=== PATIENT | female | born 1970 | race Two or more races ===

== ENCOUNTER 2021-01-11 13:22 | Outpatient (REF) | payer MEDICAID, SELFPAY ==
--- NOTE | ~2021-01-11 | XR_ITS ---
EXAMINATION: XR LUMBOSACRAL SPINE CLINICAL INFORMATION: Back pain with left-sided sciatica. COMPARISON: None TECHNIQUE: Three views of the lumbosacral spine. FINDINGS: Normal vertebral body alignment. The lumbar lordosis is maintained. No acute fracture or subluxation. No loss of vertebral body height. Minimal multilevel loss of intervertebral disc height with tiny anterior endplate osteophytes, most prominent at L2-L3. No lytic or blastic osseous lesion. Multiple surgical clips. XR/XR lumbar spine 2-3V IMPRESSION: Minimal multilevel degenerative disc disease.
--- NOTE | ~2021-01-11 | XR_ITS ---
EXAMINATION: XR KNEE, LEFT CLINICAL INFORMATION: Left knee pain. COMPARISON: None TECHNIQUE: Four views of the left knee. FINDINGS: Mild medial compartment joint space narrowing with small marginal osteophytes. Tiny patellofemoral compartment marginal osteophytes. No osseous erosion. No fracture or dislocation. No abnormal soft tissue calcification. No significant joint effusion. XR/XR knee LT 4V IMPRESSION: Mild medial and minimal patellofemoral compartment osteoarthritis.
== END 2021-01-11 13:23 | disposition home or self-care (01) ==
LOC: HO.XRAY 13:22
PROVIDERS: PCP Student in an Organized Health Care Education/Training Program; Visit Provider Emergency Medicine
DX: M25.662 Stiffness of left knee, not elsewhere classified (principal); M54.42 Lumbago with sciatica, left side
CPT/HCPCS: 72100; 73564

== ENCOUNTER → 2021-08-23 09:00 | Outpatient (BNVA) | payer MEDICAID, SELFPAY | PROVIDERS: PCP Student in an Organized Health Care Education/Training Program; Visit Provider Nurse Practitioner Family | DX: G24.3 Spasmodic torticollis (principal); G43.709 Chronic migraine without aura, not intractable, without status migrainosus; R41.3 Other amnesia | CPT/HCPCS: 99212 ==

== ENCOUNTER → 2021-10-21 09:51 | Outpatient (BNVA) | payer MEDICAID, SELFPAY | PROVIDERS: PCP Student in an Organized Health Care Education/Training Program; Visit Provider Psychiatry & Neurology Neurology | DX: G24.3 Spasmodic torticollis (principal); G43.709 Chronic migraine without aura, not intractable, without status migrainosus | CPT/HCPCS: 64616; 99211; J0585 ==

== ENCOUNTER → 2021-10-28 09:25 | Outpatient (BNVA) | payer MEDICAID, SELFPAY | PROVIDERS: PCP Student in an Organized Health Care Education/Training Program; Visit Provider Nurse Practitioner Family | DX: G43.709 Chronic migraine without aura, not intractable, without status migrainosus (principal); G24.3 Spasmodic torticollis; M54.50 Low back pain, unspecified | CPT/HCPCS: 99212 ==

== ENCOUNTER → 2022-01-27 13:30 | Outpatient (BNVA) | payer MEDICAID, SELFPAY | PROVIDERS: PCP Student in an Organized Health Care Education/Training Program; Visit Provider Psychiatry & Neurology Neurology | DX: G43.709 Chronic migraine without aura, not intractable, without status migrainosus (principal); G24.3 Spasmodic torticollis | CPT/HCPCS: 64615; 64616; 99211; J0585 ==

== ENCOUNTER → 2022-05-19 08:58 | Outpatient (BNVA) | payer MEDICAID, SELFPAY | PROVIDERS: PCP Student in an Organized Health Care Education/Training Program; Visit Provider Nurse Practitioner Family | DX: M54.50 Low back pain, unspecified (principal); G43.709 Chronic migraine without aura, not intractable, without status migrainosus; G24.3 Spasmodic torticollis | CPT/HCPCS: 99212 ==

== ENCOUNTER → 2022-06-13 13:29 | Outpatient (BNVA) | payer MEDICAID, SELFPAY | PROVIDERS: PCP Student in an Organized Health Care Education/Training Program; Visit Provider Psychiatry & Neurology Neurology | DX: G43.709 Chronic migraine without aura, not intractable, without status migrainosus (principal); G24.3 Spasmodic torticollis; R56.9 Unspecified convulsions | CPT/HCPCS: 64616; 99211; J0585 ==

== ENCOUNTER → 2022-06-29 09:04 | Outpatient (BNVA) | payer MEDICAID, SELFPAY | PROVIDERS: PCP Student in an Organized Health Care Education/Training Program; Visit Provider Nurse Practitioner Family | DX: R56.9 Unspecified convulsions (principal); F32.A Depression, unspecified | CPT/HCPCS: 99212 ==

== ENCOUNTER → 2022-09-07 15:49 | Outpatient (BNVA) | payer MEDICAID, SELFPAY | PROVIDERS: PCP Student in an Organized Health Care Education/Training Program; Visit Provider Nurse Practitioner Family | DX: G43.119 Migraine with aura, intractable, without status migrainosus (principal); R56.9 Unspecified convulsions; Z79.899 Other long term (current) drug therapy | CPT/HCPCS: 99212 ==

== ENCOUNTER → 2022-09-14 13:21 | Outpatient (BNVA) | payer MEDICAID, SELFPAY | PROVIDERS: PCP Student in an Organized Health Care Education/Training Program; Visit Provider Psychiatry & Neurology Neurology | DX: G24.3 Spasmodic torticollis (principal); R56.9 Unspecified convulsions; G43.119 Migraine with aura, intractable, without status migrainosus | CPT/HCPCS: 64615; 64616; 99211; J0585 ==

== ENCOUNTER → 2022-09-28 09:29 | Outpatient (BNVA) | payer MEDICAID, SELFPAY | PROVIDERS: PCP Student in an Organized Health Care Education/Training Program; Visit Provider Nurse Practitioner Family | DX: R56.9 Unspecified convulsions (principal); G24.3 Spasmodic torticollis; R25.1 Tremor, unspecified | CPT/HCPCS: 99212 ==

== ENCOUNTER → 2022-10-26 15:42 | Outpatient (BNVA) | payer MEDICAID, SELFPAY | PROVIDERS: PCP Student in an Organized Health Care Education/Training Program; Visit Provider Nurse Practitioner Family | DX: R56.9 Unspecified convulsions (principal); R25.1 Tremor, unspecified; G43.119 Migraine with aura, intractable, without status migrainosus; G24.3 Spasmodic torticollis; Z79.899 Other long term (current) drug therapy | CPT/HCPCS: 99212 ==

== ENCOUNTER → 2022-11-30 10:44 | Outpatient (BNVA) | payer MEDICAID, SELFPAY | PROVIDERS: PCP Student in an Organized Health Care Education/Training Program; Visit Provider Nurse Practitioner Family | DX: G24.3 Spasmodic torticollis (principal); M62.838 Other muscle spasm; R56.9 Unspecified convulsions | CPT/HCPCS: 99212 ==

== ENCOUNTER → 2022-12-21 08:47 | Outpatient (BNVA) | payer MEDICAID, SELFPAY | PROVIDERS: PCP Student in an Organized Health Care Education/Training Program; Visit Provider Psychiatry & Neurology Neurology | DX: G24.3 Spasmodic torticollis (principal); G43.709 Chronic migraine without aura, not intractable, without status migrainosus; R56.9 Unspecified convulsions; Z79.899 Other long term (current) drug therapy | CPT/HCPCS: 64615; 64616; 99211; J0585 ==

== ENCOUNTER → 2023-02-24 10:23 | Outpatient (BNVA) | payer MEDICAID, SELFPAY | PROVIDERS: PCP Student in an Organized Health Care Education/Training Program; Visit Provider Nurse Practitioner Family | DX: G43.119 Migraine with aura, intractable, without status migrainosus (principal); M62.838 Other muscle spasm; R56.9 Unspecified convulsions; G24.3 Spasmodic torticollis | CPT/HCPCS: 99212 ==

== ENCOUNTER 2023-03-28 09:28 | Outpatient (AMB) | payer MEDICAID, SELFPAY ==
--- NOTE | 2023-03-28 09:34 | MHC.OFFVIS ---
Intake Vital Signs 03/28/23 09:38 Weight 179 lb 2 oz BP 98/52 L Blood Pressure Location Lt brachial Position Sitting Pulse 65 Pulse Source Pulse Oximeter Pulse Oximetry (%) 98 Oxygen Delivery Method Room Air Intake Visit Reasons: BOTOX(B&B)-confirmed Intake Note: Botox Injection It Security Specialist Required: No Allergies iodine Allergy (Severe, Verified 03/28/23 09:35) Anaphylaxis shellfish derived Allergy (Severe, Verified 03/28/23 09:35) Hives Seasonal Allergies Allergy (Intermediate, Verified 03/28/23 09:35) Watery Eyes Sneezing banana Allergy (Mild, Verified 03/28/23 09:35) Itchy codeine Allergy (Mild, Verified 03/28/23 09:35) Chest Pain morphine Allergy (Mild, Verified 03/28/23 09:35) Chest Pain tree nut Allergy (Mild, Verified 03/28/23 09:35) Itchy watermelon Allergy (Mild, Verified 03/28/23 09:35) Itchy Medication List - Last Reconciled 03/28/23 by Betzaida Solis MD albuterol sulfate 2.5 mg inhalation Q4-6H PRN albuterol sulfate 90 mcg/actuation (ProAir HFA) 2 puffs inhalation QID amitriptyline 10 - 20 mg (1 - 2 x 10 mg) PO BEDTIME 30 days aripiprazole 20 mg PO BEDTIME aspirin 81 mg PO BEDTIME 30 days atorvastatin (Lipitor) 10 mg PO DAILY kgaoglofyq-gjtdhbnumd-rnc-cod [id number] mg 1 cap PO Q4H PRN cabergoline 0.5 mg PO 2XW calcium carbonate-vitamin D3 600 mg-10 mcg (400 unit) 1 tab PO BID carbamazepine ER 200 mg PO BID 30 days cetirizine 10 mg PO DAILY PRN cholecalciferol (vitamin D3) 100 mcg PO DAILY clonazepam 2 mg orally for seizure lasting > 2 minutes, may repeat x's 1 and call 911; 30 days duloxetine 30 mg PO QAM erenumab-aooe (Aimovig Autoinjector) 140 mg subcutaneously monthly; inject 140mg (1 ml) sc once a month 30 days esomeprazole magnesium 20 mg PO QAM ferrous fumarate (Ferretts) 325 mg PO DAILY finasteride 5 mg PO DAILY fluocinolone 0.01% topical TID fluticasone propion-salmeterol 115-21 mcg/actuation (Advair HFA) 2 puffs inhalation ONCE [glucose tab PO PRN] hydroxyzine HCl 25 mg PO BEDTIME ketoconazole 2% 1 appl topical DAILY magnesium oxide 400 mg PO DAILY 30 days meclizine 25 mg PO DAILY PRN montelukast 10 mg PO BEDTIME multivitamin 1 tab PO DAILY onabotulinumtoxinA (Botox) IM ondansetron 4 mg PO Q8H PRN pantoprazole 40 mg PO pyridoxine (vitamin B6) 50 mg PO BID 30 days riboflavin (vitamin B2) 200 mg (2 x 100 mg) PO BID 30 days sertraline 50 mg PO QAM triamcinolone acetonide 0.5% 1 appl topical BID triamcinolone acetonide (Nasacort) 1 spray intranasal DAILY verapamil ER 120 mg PO DAILY 30 days vitamin A 1 cap PO QAM vitamin B complex (B Complex-Vitamin B12 tablet) 1 tab PO DAILY zolmitriptan 5 mg PO Q2H PRN 30 days HPI HPI Comments History of Present Illness Details 52y/o female comes for treatment of her cervical dystonia and migraines ? Side effects including spread of toxin effect, dysphagia, breathing difficulties , bronchitis etc was discussed in detail and the patient agreed to the procedure.An informed consent was obtained ??? Botulinum toxin type [id number] diluted with 2 cc of normal saline each at a concentration of 25 units in 0.5cc saline. Lot number [id number] expiration 09/2025 ??? Muscles injected Bilateral levator 50 units each Bilateral trapezius 15 units on left 25 units on right Zachariah temporlis 20 units each Zachariah Zygomaticus 5 units each Zachariah cervical paraspinal 10 units each Total use 200 units ??? PFSH Medical History Anemia Cataract Depression Diabetes GERD (gastroesophageal reflux disease) HTN (hypertension) Pituitary abnormality Sleep disorder Surgical History H/O section H/O gastric bypass H/O laparoscopic adjustable gastric banding H/O left knee surgery H/O right knee surgery H/O tubal ligation Hx of bilateral breast reduction surgery Hx of tonsillectomy Family History Father Skin cancer Brother Heart disease Brother Cancer Mother Dementia Social History Household Members Other:: daughter Alcohol intake: never Patient Tobacco Use Status: Former Tobacco user Current occupational status: disabled Physical Exam Vital Signs: Last Vital Signs Pulse 65 03/28/23 09:38 BP 98/52 L 03/28/23 09:38 Pulse Ox 98 03/28/23 09:38 Oxygen Delivery Method Room Air 03/28/23 09:38 Const General: cooperative and no acute distress Orientation/consciousness: patient oriented x3 HEENT Head: Yes normocephalic Neuro General: patient oriented x3, gait normal and CN's II-XI intact bilaterally Cognition (Neuro): normal cognition Motor exam (neuro): 5/5 motor strength present throughout Office Procedures Botulinum toxin Injection 56057 - Migraine 75528 - Dystonia Procedure code (CPT) selection complete Office Meds onabotulinumtoxinA Performing Provider: Betzaida Solis MD Administered by: Betzaida Solis MD on 03/28/23 10:00 Dose Route Admin Location Lot Number Expiration Date NDC Nipple Maker 200 unit IM [id number] 09/21/25 5468-7935-08 ALLERGAN/BOTOX Comments: see hpi Assessment & Plan Assessment & Plan (1) Chronic migraine without aura, not intractable, without status migrainosus: Code(s): G43.709 - Chronic migraine without aura, not intractable, without status migrainosus (2) Spasmodic torticollis: Code(s): G24.3 - Spasmodic torticollis (3) Migraine with aura, intractable, without status migrainosus: Code(s): G43.119 - Migraine with aura, intractable, without status migrainosus (4) Seizures: Comment: Prolonged episodes raise ? non-epileptic convulsions, ? dystonia, ? PKD Code(s): R56.9 - Unspecified convulsions Plan Patient tolerated the procedure well she will call with any side effect Continue keppra 750mg bid f/u with Rosemarie Spicer for seizures Orders: Orders AMB Botulinum toxin Injection Today G24.3 - Spasmodic torticollis, G43.709 - Chronic migraine without aura, not intractable, without status migrainosus Coding Level of Care Code Est Pt Level 1 (73860) Diagnoses Chronic migraine without aura, not intractable, without status migrainosus G43.709 Spasmodic torticollis G24.3 Migraine with aura, intractable, without status migrainosus G43.119 Seizures R56.9 CPT Codes Botox Injection - Botox 3: 71862 - Migraine ([id number]) Botox Injection - Botox 4: 28482 - Dystonia ([id number])
[2023-03-28 09:38] VITALS: BP 98/52; PULSE 65; O2SAT 98
== END 2023-03-28 09:56 | disposition home or self-care (01) ==
PROVIDERS: Visit Provider Psychiatry & Neurology Neurology
DX: G43.709 Chronic migraine without aura, not intractable, without status migrainosus (principal); G43.119 Migraine with aura, intractable, without status migrainosus
CPT/HCPCS: 64615

== ENCOUNTER → 2023-03-28 09:28 | Outpatient (BNVA) | payer MEDICAID, SELFPAY | PROVIDERS: Visit Provider Psychiatry & Neurology Neurology | DX: G43.709 Chronic migraine without aura, not intractable, without status migrainosus (principal); G24.3 Spasmodic torticollis; G43.119 Migraine with aura, intractable, without status migrainosus; R56.9 Unspecified convulsions | CPT/HCPCS: 64615; 99211; J0585 ==

== ENCOUNTER 2023-06-09 09:22 | Outpatient (AMB) | payer MEDICAID, SELFPAY ==
[2023-06-09 09:34] VITALS: BP 112/72; PULSE 59; RESP 16; O2SAT 98; BMI 31.9
--- NOTE | 2023-06-09 09:34 | MHC.OFFVIS ---
Intake Vital Signs 06/09/23 09:34 Height 5 ft 3 in Weight 180 lb 6 oz BMI 31.9 BP 112/72 Blood Pressure Location Lt brachial Position Sitting Respiration 16 Pulse 59 Pulse Source Pulse Oximeter Pulse Oximetry (%) 98 Oxygen Delivery Method Room Air Intake Visit Reasons: 2m follow up-Confirmed Intake Note: Pt presents to office for 2 month follow for migraine headaches. She reports she was hospitalized at [facility] for what she believes was a seizure after losing consciousness. Her partner, Caleb, reports he noteiced she wasn't feeling well and her mouth started to twist up then her eyes rolled back and she passed out . She was observed in the ED and discharged the same day. Headaches have improved. Allergies iodine Allergy (Severe, Verified 06/09/23 09:41) Anaphylaxis shellfish derived Allergy (Severe, Verified 06/09/23 09:41) Hives Seasonal Allergies Allergy (Intermediate, Verified 06/09/23 09:41) Watery Eyes Sneezing banana Allergy (Mild, Verified 06/09/23 09:41) Itchy codeine Allergy (Mild, Verified 06/09/23 09:41) Chest Pain morphine Allergy (Mild, Verified 06/09/23 09:41) Chest Pain tree nut Allergy (Mild, Verified 06/09/23 09:41) Itchy watermelon Allergy (Mild, Verified 06/09/23 09:41) Itchy Medication List - Last Reconciled 06/09/23 by NAN Garcia albuterol sulfate 2.5 mg inhalation Q4-6H PRN albuterol sulfate 90 mcg/actuation (ProAir HFA) 2 puffs inhalation QID amitriptyline 10 - 20 mg (1 - 2 x 10 mg) PO BEDTIME 30 days aripiprazole 20 mg PO BEDTIME aspirin 81 mg PO BEDTIME 30 days atorvastatin (Lipitor) 10 mg PO DAILY cxxvmwlcba-rwcpgqfiey-hau-cod [id number] mg 1 cap PO Q4H PRN cabergoline 0.5 mg PO 2XW calcium carbonate-vitamin D3 600 mg-10 mcg (400 unit) 1 tab PO BID carbamazepine ER 400 mg (2 x 200 mg) PO BID 30 days cetirizine 10 mg PO DAILY PRN cholecalciferol (vitamin D3) 100 mcg PO DAILY clonazepam 2 mg orally for seizure lasting > 2 minutes, may repeat x's 1 and call 911; 30 days duloxetine 30 mg PO QAM erenumab-aooe (Aimovig Autoinjector) 140 mg subcutaneously monthly; inject 140mg (1 ml) sc once a month 30 days esomeprazole magnesium 20 mg PO QAM ferrous fumarate (Ferretts) 325 mg PO DAILY finasteride 5 mg PO DAILY fluocinolone 0.01% topical TID fluticasone propion-salmeterol 115-21 mcg/actuation (Advair HFA) 2 puffs inhalation ONCE [glucose tab PO PRN] hydroxyzine HCl 25 mg PO BEDTIME ketoconazole 2% 1 appl topical DAILY magnesium oxide 400 mg PO DAILY 30 days meclizine 25 mg PO DAILY PRN montelukast 10 mg PO BEDTIME multivitamin 1 tab PO DAILY onabotulinumtoxinA (Botox) IM ondansetron 4 mg PO Q8H PRN pantoprazole 40 mg PO pyridoxine (vitamin B6) 50 mg PO BID 30 days riboflavin (vitamin B2) 200 mg (2 x 100 mg) PO BID 30 days sertraline 50 mg PO QAM triamcinolone acetonide 0.5% 1 appl topical BID triamcinolone acetonide (Nasacort) 1 spray intranasal DAILY verapamil ER 120 mg PO DAILY 30 days vitamin A 1 cap PO QAM vitamin B complex (B Complex-Vitamin B12 tablet) 1 tab PO DAILY zolmitriptan 5 mg PO Q2H PRN 30 days HPI HPI Comments History of Present Illness Details 52-yr-old female presents for f/u visit, pt is accompanied by her partner. Pt reports she had a recent [facility] ER eval. She had an episode of not feeling well, her left lower face pulled to the left, and then she had convulsions x's 2-3 min which subsided but then started agian for 2-3 min. Pt's dtr gave her Clonazepam and called 911 The biodiesel engine specialist reportedly witnessed convulsive activity and needed to apply O2. In the Er, pt was noted to have decreased responsiveness. She was given Lorazepam and Versad. Labs were unremarkable. Head imaging was deferred per family request- d/t worry about repeat CTs. Pt eventually returned to baseline and was discharged home on home AEDs. Pt states she was very sleepy for a day or so afterwards and does not recall much from that entire day. Of note, pt had another ER eval in Mar- at which time she had a normal video EEG (was on carbamazepine at the time). She has not had any seizure activity since. She is complaint w/ Carbamazepine Er 200mg bid. Pt states her headaches and migraines have been better. She does note that after her last 2 Botox sessions- a week later, she has developed a superficial pruritic papular rash on her posterior neck, which subsides slowly. She is hoping to try the Botox once more time, to see if this is just coincidental or not. [facility] Medical History Anemia Cataract Depression Diabetes GERD (gastroesophageal reflux disease) HTN (hypertension) Pituitary abnormality Sleep disorder Surgical History Hx of tonsillectomy H/O tubal ligation H/O section H/O gastric bypass H/O laparoscopic adjustable gastric banding Hx of bilateral breast reduction surgery H/O right knee surgery H/O left knee surgery Family History Father Skin cancer Brother Heart disease Brother Cancer Mother Dementia Social History Household Members Other:: daughter Alcohol intake: never Patient Tobacco Use Status: Former Tobacco user Current occupational status: disabled Review of Systems Const All systems reviewed & are unremarkable except as noted in HPI and below Physical Exam Vital Signs: Last Vital Signs Pulse 59 06/09/23 09:34 Resp 16 06/09/23 09:34 BP 112/72 06/09/23 09:34 Pulse Ox 98 06/09/23 09:34 Oxygen Delivery Method Room Air 06/09/23 09:34 BMI result Body Mass Index 31.9 Const General: cooperative and no acute distress Orientation/consciousness: patient oriented x3 HEENT Head: Yes normocephalic Resp Effort & Inspection: normal respiratory effort and able to speak in complete sentences Skin Other: Very mild papular rash- no erythema, warmth, drainage- along posterior neck. Neuro General: patient oriented x3, gait normal and CN's II-XI intact bilaterally Cognition (Neuro): normal cognition Motor exam (neuro): 5/5 motor strength present throughout Psych Appearance: grossly normal Mental Status: mental status grossly normal Speech and movement: Normal speech and movement present Affect: normal affect Attitude: cooperative Thought process: Normal thought process present Thought content: Normal thought content present Insight: Good insight present (Psych) Judgement: Good judgement present (Psych) Assessment & Plan Assessment & Plan (1) Seizures: Comment: Prolonged episodes raise ? non-epileptic convulsions, ? dystonia, ? PKD Code(s): R56.9 - Unspecified convulsions (2) Migraine with aura, intractable, without status migrainosus: Code(s): G43.119 - Migraine with aura, intractable, without status migrainosus Plan For seizure activity: Increase Tegretol XR from 200mg bid to 400mg bid. Check tegretol level today- was not checked in recent ER visit. Check CBC, CMP, Tegretol level in 1 month. Functional Neurological Disorder clinic at [facility] in [place] as scheduled- in Jul. For migarine: Continue Aimovig 140mg sc q month. Continue Amitriptyline 20mg qhs. Continue Riboflavin, Mag, Verapamil ER 120mg qhs. Continue prn Zolmitriptan. For spasmodic torticollis: Continue botox- Monitor rash. f/u for botox in Jun and in Sep as scheduled w/ APPLICATION SUPPORT ADMINISTRATOR. Orders: Orders Carbamazepine Tegretol Today G40.909 - Epilepsy, unspecified, not intractable, without status epilepticus Comprehensive Met. Panel Today R56.9 - Unspecified convulsions Complete Blood Count Auto Diff Today R56.9 - Unspecified convulsions Medications: Changed From carbamazepine ER 200 mg PO BID 30 days 60 tabs 3RF To carbamazepine ER 400 mg (2 x 200 mg) PO BID 30 days 120 tabs 3RF Coding Level of Care Code Est Pt Level 4 (02608) Diagnoses Seizures R56.9 Migraine with aura, intractable, without status migrainosus G43.119
== END 2023-06-09 10:17 | disposition home or self-care (01) ==
PROVIDERS: PCP Student in an Organized Health Care Education/Training Program; Visit Provider Nurse Practitioner Family
DX: R56.9 Unspecified convulsions (principal); G43.119 Migraine with aura, intractable, without status migrainosus
CPT/HCPCS: 99214

== ENCOUNTER → 2023-06-09 09:22 | Outpatient (BNVA) | payer MEDICAID, SELFPAY | PROVIDERS: PCP Student in an Organized Health Care Education/Training Program; Visit Provider Nurse Practitioner Family | DX: R56.9 Unspecified convulsions (principal); G43.119 Migraine with aura, intractable, without status migrainosus; M62.838 Other muscle spasm; G24.9 Dystonia, unspecified | CPT/HCPCS: 99212 ==

== ENCOUNTER 2023-06-29 09:47 | Outpatient (AMB) | payer MEDICAID, SELFPAY ==
--- NOTE | 2023-06-29 09:49 | MHC.OFFVIS ---
Intake Vital Signs 06/29/23 09:50 Height 5 ft 3 in Weight 184 lb 4 oz BMI 32.6 BP 116/72 Blood Pressure Location Lt brachial Position Sitting Respiration 15 Pulse 75 Pulse Source Pulse Oximeter Pulse Oximetry (%) 98 Oxygen Delivery Method Room Air Intake Visit Reasons: BOTOX(B&B)/Confirmed Intake Note: Pt presents to the office for Botox injections. Supervisor Logging Required: No Allergies iodine Allergy (Severe, Verified 06/29/23 09:50) Anaphylaxis shellfish derived Allergy (Severe, Verified 06/29/23 09:50) Hives Seasonal Allergies Allergy (Intermediate, Verified 06/29/23 09:50) Watery Eyes Sneezing banana Allergy (Mild, Verified 06/29/23 09:50) Itchy codeine Allergy (Mild, Verified 06/29/23 09:50) Chest Pain morphine Allergy (Mild, Verified 06/29/23 09:50) Chest Pain tree nut Allergy (Mild, Verified 06/29/23 09:50) Itchy watermelon Allergy (Mild, Verified 06/29/23 09:50) Itchy Medication List - Last Reconciled 06/29/23 by Betazida Solis MD albuterol sulfate 2.5 mg inhalation Q4-6H PRN albuterol sulfate 90 mcg/actuation (ProAir HFA) 2 puffs inhalation QID amitriptyline 10 - 20 mg (1 - 2 x 10 mg) PO BEDTIME 30 days aripiprazole 20 mg PO BEDTIME aspirin 81 mg PO BEDTIME 30 days atorvastatin (Lipitor) 10 mg PO DAILY hvuwzkbewq-jnottqlwmx-sjh-cod [id number] mg 1 cap PO Q4H PRN cabergoline 0.5 mg PO 2XW calcium carbonate-vitamin D3 600 mg-10 mcg (400 unit) 1 tab PO BID carbamazepine ER 400 mg (2 x 200 mg) PO BID 30 days cetirizine 10 mg PO DAILY PRN cholecalciferol (vitamin D3) 100 mcg PO DAILY clonazepam 2 mg orally for seizure lasting > 2 minutes, may repeat x's 1 and call 911; 30 days duloxetine 30 mg PO QAM erenumab-aooe (Aimovig Autoinjector) 140 mg subcutaneously monthly; inject 140mg (1 ml) sc once a month 30 days esomeprazole magnesium 20 mg PO QAM ferrous fumarate (Ferretts) 325 mg PO DAILY finasteride 5 mg PO DAILY fluocinolone 0.01% topical TID fluticasone propion-salmeterol 115-21 mcg/actuation (Advair HFA) 2 puffs inhalation ONCE [glucose tab PO PRN] hydroxyzine HCl 25 mg PO BEDTIME ketoconazole 2% 1 appl topical DAILY magnesium oxide 400 mg PO DAILY 30 days meclizine 25 mg PO DAILY PRN montelukast 10 mg PO BEDTIME multivitamin 1 tab PO DAILY onabotulinumtoxinA (Botox) IM ondansetron 4 mg PO Q8H PRN pantoprazole 40 mg PO pyridoxine (vitamin B6) 50 mg PO BID 30 days riboflavin (vitamin B2) 200 mg (2 x 100 mg) PO BID 30 days sertraline 50 mg PO QAM triamcinolone acetonide 0.5% 1 appl topical BID triamcinolone acetonide (Nasacort) 1 spray intranasal DAILY verapamil ER 120 mg PO DAILY 30 days vitamin A 1 cap PO QAM vitamin B complex (B Complex-Vitamin B12 tablet) 1 tab PO DAILY zolmitriptan 5 mg PO Q2H PRN 30 days HPI HPI Comments History of Present Illness Details 52y/o female comes for treatment of her cervical dystonia and migraines ? Side effects including spread of toxin effect, dysphagia, breathing difficulties , bronchitis etc was discussed in detail and the patient agreed to the procedure.An informed consent was obtained ??? Botulinum toxin type [id number] diluted with 2 cc of normal saline each at a concentration of 25 units in 0.5cc saline. Lot number [id number] expiration 09/2025 ??? Muscles injected Bilateral levator 20 units each Zachariah Splenius 25 units each Bilateral trapezius 30 units each Zachariah temporlis 20 units each Zachariah Zygomaticus 5 units each Total use 200 units ??? PFSH Medical History Cataract Pituitary abnormality Sleep disorder GERD (gastroesophageal reflux disease) HTN (hypertension) Diabetes Depression Anemia Surgical History Hx of tonsillectomy H/O tubal ligation H/O section H/O gastric bypass H/O laparoscopic adjustable gastric banding Hx of bilateral breast reduction surgery H/O right knee surgery H/O left knee surgery Family History Father Skin cancer Brother Heart disease Brother Cancer Mother Dementia Social History Household Members Other:: daughter Alcohol intake: never Patient Tobacco Use Status: Former Tobacco user Current occupational status: disabled Physical Exam Vital Signs: Last Vital Signs Pulse 75 06/29/23 09:50 Resp 15 06/29/23 09:50 BP 116/72 06/29/23 09:50 Pulse Ox 98 06/29/23 09:50 Oxygen Delivery Method Room Air 06/29/23 09:50 BMI result Body Mass Index 32.6 Const General: cooperative and no acute distress Orientation/consciousness: patient oriented x3 HEENT Head: Yes normocephalic Neuro General: patient oriented x3, gait normal and CN's II-XI intact bilaterally Cognition (Neuro): normal cognition Motor exam (neuro): 5/5 motor strength present throughout Office Procedures Botulinum toxin Injection 64065 - Dystonia Procedure code (CPT) selection complete Office Meds onabotulinumtoxinA 200 unit solution for injection Performing Provider: Betzaida Solis MD Performing Location: [facility] Administered by: Betzaiad Solis MD on 06/29/23 11:08 Dose Route Admin Location Dispensed Lot Number Expiration Date [facility] Patient Accounts Clerk 200 unit IM 200 units [id number] 09/21/25 4382-2866-74 ALLERGAN/BOTOX Comments: see hpi Assessment & Plan Assessment & Plan (1) Chronic migraine without aura, not intractable, without status migrainosus: Code(s): G43.709 - Chronic migraine without aura, not intractable, without status migrainosus (2) Spasmodic torticollis: Code(s): G24.3 - Spasmodic torticollis (3) Migraine with aura, intractable, without status migrainosus: Code(s): G43.119 - Migraine with aura, intractable, without status migrainosus (4) Seizures: Comment: Prolonged episodes raise ? non-epileptic convulsions, ? dystonia, ? PKD Code(s): R56.9 - Unspecified convulsions Plan Patient tolerated the procedure well she will call with any side effect Continue keppra 750mg bid f/u with Rosemarie Spicer for seizures Orders: Orders AMB Botulinum toxin Injection Today G24.3 - Spasmodic torticollis Coding Level of Care Code Est Pt Level 1 (79827) Diagnoses Chronic migraine without aura, not intractable, without status migrainosus G43.709 Spasmodic torticollis G24.3 Migraine with aura, intractable, without status migrainosus G43.119 Seizures R56.9 CPT Codes Botox Injection - Botox 4: 27267 - Dystonia ([id number])
[2023-06-29 09:50] VITALS: BP 116/72; PULSE 75; RESP 15; O2SAT 98; BMI 32.6
== END 2023-06-29 10:49 | disposition home or self-care (01) ==
PROVIDERS: PCP Student in an Organized Health Care Education/Training Program; Visit Provider Psychiatry & Neurology Neurology
DX: G24.3 Spasmodic torticollis (principal)
CPT/HCPCS: 64616

== ENCOUNTER → 2023-06-29 09:47 | Outpatient (BNVA) | payer MEDICAID, SELFPAY | PROVIDERS: PCP Student in an Organized Health Care Education/Training Program; Visit Provider Psychiatry & Neurology Neurology | DX: G43.709 Chronic migraine without aura, not intractable, without status migrainosus (principal); G43.119 Migraine with aura, intractable, without status migrainosus; G24.3 Spasmodic torticollis; R56.9 Unspecified convulsions | CPT/HCPCS: 64616; 99211; J0585 ==

== ENCOUNTER 2023-08-07 10:53 | Outpatient (REF) | payer MEDICAID, SELFPAY ==
[2023-08-07 14:40] LABS: Alanine Aminotransferase 31 U/L (0-31); Alkaline Phosphatase 73 U/L (39-117); Anion Gap 12 (12-20); Aspartate Amino Transferase 27 U/L (5-31); Bilirubin Direct 0.1 mg/dL (0.0-0.5); Bilirubin Total 0.3 mg/dL (0.0-1.0); Blood Urea Nitrogen 13 mg/dL (9-16); Calcium 8.7 mg/dL (8.4-10.2); Carbon Dioxide 27 mmol/L (22-29); Chloride 106 mmol/L (96-108); Cholesterol 174 mg/dL (<200); Estimated Glomerular Filt Rate > 60; Glucose Random 77 mg/dL (60-115); HDL Cholesterol 61 mg/dL (>40); LDL Cholesterol Calculated 98 mg/dL (<100); Potassium 4.1 mmol/L (3.3-5.1); Sodium 141 mmol/L (135-145); Total Protein 6.8 g/dL (6.5-8.0); Triglycerides 75 mg/dL (<150)
[2023-08-07 14:56] LABS: Estimated Average Glucose 100 mg/dL; Hemoglobin A1c % 5.1 % (<6.0); TSH reflex Free T4 2.65 uIU/mL (0.32-4.0); Vitamin D 25-OH Total 43.3 ng/mL (>30)
== END 2023-08-07 10:54 | disposition home or self-care (01) ==
LOC: HO.CHCLDS 10:53
PROVIDERS: Visit Provider Student in an Organized Health Care Education/Training Program
DX: E11.9 Type 2 diabetes mellitus without complications (principal); E55.9 Vitamin D deficiency, unspecified
CPT/HCPCS: 36415; 80048; 80061; 80076; 82306; 83036; 84443

== ENCOUNTER 2023-10-12 09:26 | Outpatient (REF) | payer MEDICAID, SELFPAY ==
--- NOTE | 2023-10-12 09:29 | EMG_ITS ---
Bilateral median and ulnar motor and sensory studies were performed. Bilateral radial and median and lateral antecubital sensory studies were performed and paraspinal muscles were tested with a needle. IMPRESSION: Mild to moderate bilateral median neuropathy across carpal tunnel. MD JAIME Eli/JAMES / [id number]
== END 2023-10-12 09:27 | disposition home or self-care (01) ==
LOC: HO.NEURO 09:26
PROVIDERS: PCP Student in an Organized Health Care Education/Training Program; Visit Provider Nurse Practitioner Family
DX: R25.3 Fasciculation (principal); R25.1 Tremor, unspecified; M62.838 Other muscle spasm
CPT/HCPCS: 95886; 95913

== ENCOUNTER 2023-10-20 10:46 | Outpatient (AMB) | payer MEDICAID, SELFPAY ==
--- NOTE | 2023-10-20 10:51 | A.OFFVIS_ITS ---
Intake Vital Signs 10/20/23 10:52 Height 5 ft 3 in Weight 184 lb BMI 32.6 BP 118/76 Blood Pressure Location Rt brachial Position Sitting Respiration 17 Pulse 88 Pulse Source Pulse Oximeter Pulse Oximetry (%) 100 Oxygen Delivery Method Room Air Intake Visit Reasons: BOTOX(B&B)- Confirmed Intake Note: Pt presents to office for Botox injections. 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: No Allergies iodine Allergy (Severe, Verified 10/20/23 10:52) Anaphylaxis shellfish derived Allergy (Severe, Verified 10/20/23 10:52) Hives Seasonal Allergies Allergy (Intermediate, Verified 10/20/23 10:52) Watery Eyes Sneezing banana Allergy (Mild, Verified 10/20/23 10:52) Itchy codeine Allergy (Mild, Verified 10/20/23 10:52) Chest Pain morphine Allergy (Mild, Verified 10/20/23 10:52) Chest Pain tree nut Allergy (Mild, Verified 10/20/23 10:52) Itchy watermelon Allergy (Mild, Verified 10/20/23 10:52) Itchy Medication List - Last Reconciled 10/20/23 by Betzaida Solis MD albuterol sulfate 2.5 mg inhalation Q4-6H PRN albuterol sulfate 90 mcg/actuation (ProAir HFA) 2 puffs inhalation QID amitriptyline 10 - 20 mg (1 - 2 x 10 mg) PO BEDTIME 30 days aripiprazole 20 mg PO BEDTIME aspirin 81 mg PO BEDTIME 30 days atorvastatin (Lipitor) 10 mg PO DAILY fimzlptnyq-kmfewveyhi-czc-cod 72-275-65-30 mg 1 cap PO Q4H PRN cabergoline 0.5 mg PO 2XW calcium carbonate-vitamin D3 600 mg-10 mcg (400 unit) 1 tab PO BID carbamazepine ER 400 mg (2 x 200 mg) PO BID 30 days cetirizine 10 mg PO DAILY PRN cholecalciferol (vitamin D3) 100 mcg PO DAILY clonazepam 2 mg orally for seizure lasting > 2 minutes, may repeat x's 1 and call 911; 30 days duloxetine 30 mg PO QAM erenumab-aooe (Aimovig Autoinjector) 140 mg subcutaneously monthly; inject 140mg (1 ml) sc once a month 30 days esomeprazole magnesium 20 mg PO QAM ferrous fumarate (Ferretts) 325 mg PO DAILY finasteride 5 mg PO DAILY fluocinolone 0.01% topical TID fluticasone propion-salmeterol 115-21 mcg/actuation (Advair HFA) 2 puffs inhalation ONCE [glucose tab PO PRN] hydroxyzine HCl 25 mg PO BEDTIME ketoconazole 2% 1 appl topical DAILY magnesium oxide 400 mg PO DAILY 30 days meclizine 25 mg PO DAILY PRN montelukast 10 mg PO BEDTIME multivitamin 1 tab PO DAILY onabotulinumtoxinA (Botox) IM ondansetron 4 mg PO Q8H PRN pantoprazole 40 mg PO pyridoxine (vitamin B6) 50 mg PO BID 30 days riboflavin (vitamin B2) 200 mg (2 x 100 mg) PO BID 30 days sertraline 50 mg PO QAM triamcinolone acetonide 0.5% 1 appl topical BID triamcinolone acetonide (Nasacort) 1 spray intranasal DAILY verapamil ER 120 mg PO DAILY 30 days vitamin A 1 cap PO QAM vitamin B complex (B Complex-Vitamin B12 tablet) 1 tab PO DAILY zolmitriptan 5 mg PO Q2H PRN 30 days HPI HPI Comments History of Present Illness Details 52y/o female comes for treatment of her cervical dystonia and migraines ? Side effects including spread of toxin effect, dysphagia, breathing difficulties , bronchitis etc was discussed in detail and the patient agreed to the procedure.An informed consent was obtained ??? Botulinum toxin type [id number] diluted with 2 cc of normal saline each at a concentration of 25 units in 0.5cc saline. Lot number [id number] expiration 01/2026 ??? Muscles injected Bilateral levator 20 units each Zachariah Splenius 25 units each Bilateral trapezius 30 units each Zachariah temporlis 20 units each Zachariah Zygomaticus 5 units each Total use 200 units ??? [facility] Medical History Cataract Pituitary abnormality Sleep disorder GERD (gastroesophageal reflux disease) HTN (hypertension) Diabetes Depression Anemia Surgical History Hx of tonsillectomy H/O tubal ligation H/O section H/O gastric bypass H/O laparoscopic adjustable gastric banding Hx of bilateral breast reduction surgery H/O right knee surgery H/O left knee surgery Family History Father Skin cancer Brother Heart disease Brother Cancer Mother Dementia Social History Household Members Other:: daughter Alcohol intake: never Patient Tobacco Use Status: Former Tobacco user Current occupational status: disabled Physical Exam Vital Signs: Last Vital Signs Pulse 88 10/20/23 10:52 Resp 17 10/20/23 10:52 BP 118/76 10/20/23 10:52 Pulse Ox 100 10/20/23 10:52 Oxygen Delivery Method Room Air 10/20/23 10:52 BMI result Body Mass Index 32.6 Const General: cooperative and no acute distress Orientation/consciousness: patient oriented x3 HEENT Head: Yes normocephalic Neuro General: patient oriented x3, gait normal and CN's II-XI intact bilaterally Cognition (Neuro): normal cognition Motor exam (neuro): 5/5 motor strength present throughout Office Procedures Botulinum toxin Injection 82276 - Dystonia Procedure code (CPT) selection complete Office Meds onabotulinumtoxinA 200 unit solution for injection Performing Provider: Betzaida Solis MD Performing Location: [facility] [place] [facility] Administered by: Betzaida Solis MD on 10/20/23 11:12 Dose Route Admin Location Dispensed Lot Number Expiration Date [facility] Manager Of Supply Chain 200 unit IM 200 units [id number] 01/19/26 7801-5785-26 ALLERGAN/BOTOX Comments: see HPI Assessment & Plan Assessment & Plan (1) Chronic migraine without aura, not intractable, without status migrainosus: Code(s): G43.709 - Chronic migraine without aura, not intractable, without status migrainosus (2) Spasmodic torticollis: Code(s): G24.3 - Spasmodic torticollis (3) Migraine with aura, intractable, without status migrainosus: Code(s): G43.119 - Migraine with aura, intractable, without status migrainosus (4) Seizures: Comment: Prolonged episodes raise ? non-epileptic convulsions, ? dystonia, ? PKD Code(s): R56.9 - Unspecified convulsions Plan Patient tolerated the procedure well she will call with any side effect Continue keppra 750mg bid f/u with Rosemarie Spicer for seizures Orders: Orders AMB Botulinum toxin Injection Today G24.3 - Spasmodic torticollis Coding Level of Care Code Est Pt Level 1 (93585) Diagnoses Chronic migraine without aura, not intractable, without status migrainosus G43.709 Spasmodic torticollis G24.3 Migraine with aura, intractable, without status migrainosus G43.119 Seizures R56.9 CPT Codes Botox Injection - Botox 4: 46763 - Dystonia ([id number])
[2023-10-20 10:52] VITALS: BP 118/76; PULSE 88; RESP 17; O2SAT 100; BMI 32.6
== END 2023-10-20 11:19 | disposition home or self-care (01) ==
PROVIDERS: PCP Student in an Organized Health Care Education/Training Program; Visit Provider Psychiatry & Neurology Neurology
DX: G24.3 Spasmodic torticollis (principal)
CPT/HCPCS: 64616

== ENCOUNTER → 2023-10-20 10:46 | Outpatient (BNVA) | payer MEDICAID, SELFPAY | PROVIDERS: PCP Student in an Organized Health Care Education/Training Program; Visit Provider Psychiatry & Neurology Neurology | DX: G43.709 Chronic migraine without aura, not intractable, without status migrainosus (principal); G43.119 Migraine with aura, intractable, without status migrainosus; G24.3 Spasmodic torticollis; R56.9 Unspecified convulsions | CPT/HCPCS: 64616; 99211; J0585 ==

== ENCOUNTER 2023-12-15 12:56 | Outpatient (REF) | payer MEDICAID, SELFPAY ==
[2023-12-19 06:49] LABS: HPV mRNA E6/E7 rflx Not Detected (Not Detected)
== END 2023-12-15 12:57 | disposition home or self-care (01) ==
LOC: HO.LNP 12:56
PROVIDERS: Visit Provider Advanced Practice Midwife
DX: Z12.4 Encounter for screening for malignant neoplasm of cervix (principal)
CPT/HCPCS: 87624; 88142

== ENCOUNTER 2024-01-19 13:55 | Outpatient (AMB) | payer MEDICAID, SELFPAY ==
[2024-01-19 14:39] VITALS: BP 112/82; PULSE 62; O2SAT 97; BMI 33.3
--- NOTE | 2024-01-19 14:39 | MHC.OFFVIS ---
Vital Signs 01/19/24 14:39 Height 5 ft 3 in Weight 188 lb BMI 33.3 BP 112/82 Blood Pressure Location Rt brachial Position Sitting Pulse 62 Pulse Source Pulse Oximeter Pulse Oximetry (%) 97 Oxygen Delivery Method Room Air Intake Visit Reasons: Follow up-CONF Intake Note: Patient presents for follow up . Patient has headaches everyday. Allergies iodine Allergy (Severe, Verified 01/19/24 14:43) Anaphylaxis shellfish derived Allergy (Severe, Verified 01/19/24 14:43) Hives Seasonal Allergies Allergy (Intermediate, Verified 01/19/24 14:43) Watery Eyes Sneezing banana Allergy (Mild, Verified 01/19/24 14:43) Itchy codeine Allergy (Mild, Verified 01/19/24 14:43) Chest Pain morphine Allergy (Mild, Verified 01/19/24 14:43) Chest Pain tree nut Allergy (Mild, Verified 01/19/24 14:43) Itchy watermelon Allergy (Mild, Verified 01/19/24 14:43) Itchy Medication List - Last Reconciled 01/19/24 by NAN Garcia albuterol sulfate 2.5 mg inhalation Q4-6H PRN albuterol sulfate 90 mcg/actuation (ProAir HFA) 2 puffs inhalation QID amitriptyline 10 - 20 mg (1 - 2 x 10 mg) PO BEDTIME 30 days aripiprazole 20 mg PO BEDTIME aspirin 81 mg PO BEDTIME 30 days atorvastatin (Lipitor) 10 mg PO DAILY nepotxzobt-ymlaxmjtdc-rkr-cod 80-953-45-30 mg 1 cap PO Q4H PRN cabergoline 0.5 mg PO 2XW calcium carbonate-vitamin D3 600 mg-10 mcg (400 unit) 1 tab PO BID carbamazepine ER 400 mg (2 x 200 mg) PO BID 30 days cetirizine 10 mg PO DAILY PRN cholecalciferol (vitamin D3) 100 mcg PO DAILY clonazepam 2 mg orally for seizure lasting > 2 minutes, may repeat x's 1 and call 911; 30 days duloxetine 30 mg PO QAM erenumab-aooe (Aimovig Autoinjector) 140 mg subcutaneously monthly; inject 140mg (1 ml) sc once a month 30 days esomeprazole magnesium 20 mg PO QAM ferrous fumarate (Ferretts) 325 mg PO DAILY finasteride 5 mg PO DAILY fluocinolone 0.01% topical TID fluticasone propion-salmeterol 115-21 mcg/actuation (Advair HFA) 2 puffs inhalation ONCE [glucose tab PO PRN] hydroxyzine HCl 25 mg PO BEDTIME ketoconazole 2% 1 appl topical DAILY magnesium oxide 400 mg PO DAILY 30 days meclizine 25 mg PO DAILY PRN montelukast 10 mg PO BEDTIME multivitamin 1 tab PO DAILY onabotulinumtoxinA (Botox) IM ondansetron 4 mg PO Q8H PRN pantoprazole 40 mg PO pyridoxine (vitamin B6) 50 mg PO BID 30 days riboflavin (vitamin B2) 200 mg (2 x 100 mg) PO BID 30 days sertraline 50 mg PO QAM triamcinolone acetonide 0.5% 1 appl topical BID triamcinolone acetonide (Nasacort) 1 spray intranasal DAILY verapamil ER 120 mg PO DAILY 30 days vitamin A 1 cap PO QAM vitamin B complex (B Complex-Vitamin B12 tablet) 1 tab PO DAILY zolmitriptan 5 mg PO Q2H PRN 30 days HPI Comments Details: 53-yr-old female presents for f/u visit, accompanied by her . Pt denies any significant interval medical changes. Pt she had [facility] epilepsy consult. Pt had in-pt VEEG, weaned off of Tegretol. Pt had her typical seizure and hand/facial twisting like activity w/o EEG correlate, and was dx'd w/ non-epileptic convulsions. She was advised to f/u w/ [facility] epilepsy, functional neurology, and psychiatry. She will start cognitive behavior therapy at [facility]. The Tegretol was stopped after the VEEG. She continues to have convulsive episodes every 3-4 days as well as episodes of left-sided twisting and unresponsiveness. The neurologist at [facility] did order a salazar-spine MRI. [facility] EMG/NCS, showed mild to moderate bilateral median neuropathy across carpal tunnel. She is having numbness and tingling in her legs. Her LLE becomes swollen from the knees down. [facility] Medical History Cataract Pituitary abnormality Sleep disorder GERD (gastroesophageal reflux disease) HTN (hypertension) Diabetes Depression Anemia Surgical History Hx of tonsillectomy H/O tubal ligation H/O section H/O gastric bypass H/O laparoscopic adjustable gastric banding Hx of bilateral breast reduction surgery H/O right knee surgery H/O left knee surgery Family History Father Skin cancer Brother Heart disease Brother Cancer Mother Dementia Social History Household Members Other:: daughter Alcohol intake: never Patient Tobacco Use Status: Former Tobacco user Current occupational status: disabled Physical Exam Vital Signs: Last Vital Signs Pulse 62 01/19/24 14:39 BP 112/82 01/19/24 14:39 Pulse Ox 97 01/19/24 14:39 Oxygen Delivery Method Room Air 01/19/24 14:39 BMI result Body Mass Index 33.3 Const General: cooperative and no acute distress Orientation/consciousness: patient oriented x3 Resp Effort & Inspection: normal respiratory effort and able to speak in complete sentences Neuro General: patient oriented x3 Cranial nerves: Yes CN's II-XII intact bilaterally Cognition (Neuro): normal cognition Psych Appearance: grossly normal Mental Status: mental status grossly normal Speech and movement: Normal speech and movement present Affect: normal affect Attitude: cooperative Assessment & Plan Assessment & Plan (1) Psychogenic nonepileptic seizure: Code(s): F44.5 - Conversion disorder with seizures or convulsions Category: Medical (2) Bilateral carpal tunnel syndrome: Code(s): G56.03 - Carpal tunnel syndrome, bilateral upper limbs Category: Medical (3) Chronic migraine without aura, not intractable, without status migrainosus: Code(s): G43.709 - Chronic migraine without aura, not intractable, without status migrainosus Category: Medical (4) Spasmodic torticollis: Code(s): G24.3 - Spasmodic torticollis Category: Medical (5) Muscle spasm: Code(s): M62.838 - Other muscle spasm Category: Medical (6) Paresthesias: Code(s): R20.2 - Paresthesia of skin Category: Medical Plan For non-epileptic convulsions: Reviewed [facility] epilepsy clinic notes. Patient has had video EEG having been weaned off of Tegretol, had typical convulsive episodes without EEG correlate. Reviewed the diagnosis of psychogenic nonepileptic convulsions or seizures. Discussed with patient that I agree with plan to start intensive cognitive behavioral therapy at [facility]. Continue to hold Tegretol XR. Will monitor status of muscle spasms and twisting, if worsens significantly will consider resuming carbamazepine (in collaboration with [facility]). F/u [facility] Epilepsy and Functional Neurological Disorder clinic as scheduled. For bilateral carpal tunnel syndrome: Reviewed [facility] EMG/NCS- results consistent with bilateral carpal tunnel syndrome. Trial bilateral carpal tunnel wrist splints at night. Order written and given to patient with instructions to bring to local medical supply store. Minor effect on paresthesias as well as upper extremity cramping and twisting episodes. For bilateral lower extremity paresthesias: Patient advised to undergo bilateral lower extremity EMG/NCS. Future consideration: Referral to physical therapy, trial of alpha lipoic acid. ? For migraine: Continue Aimovig 140mg sc q month. Continue Amitriptyline 20mg qhs. Continue Riboflavin, Mag, Verapamil ER 120mg qhs. Continue prn Zolmitriptan. ? For spasmodic torticollis: Continue botox- Orders: Orders NE nerve conduction velocity 01/19/24 M62.838 - Other muscle spasm, R20.2 - Paresthesia of skin, R25.3 - Fasciculation NE electromyogram (EMG) 01/19/24 M62.838 - Other muscle spasm, R20.2 - Paresthesia of skin, R25.3 - Fasciculation Medications: New [Bilateral carpal tunnel wrist splints] Use nightly while sleeping 2 ea 0RF G56.03 - Carpal tunnel syndrome, bilateral upper limbs Refilled erenumab-aooe (Aimovig Autoinjector) 140 mg subcutaneously monthly; inject 140mg (1 ml) sc once a month 1 mL 6RF 30 days Discontinued carbamazepine ER Discontinued Reason: Doctor's Order 400 mg (2 x 200 mg) PO BID 30 days 120 tabs 3RF Coding Level of Care Code Est Pt Level 4 (81809) Diagnoses Psychogenic nonepileptic seizure F44.5 Bilateral carpal tunnel syndrome G56.03 Chronic migraine without aura, not intractable, without status migrainosus G43.709 Spasmodic torticollis G24.3 Muscle spasm M62.838 Paresthesias R20.2
== END 2024-01-19 15:38 | disposition home or self-care (01) ==
PROVIDERS: PCP Student in an Organized Health Care Education/Training Program; Visit Provider Nurse Practitioner Family
DX: F44.5 Conversion disorder with seizures or convulsions (principal); G56.03 Carpal tunnel syndrome, bilateral upper limbs; G43.709 Chronic migraine without aura, not intractable, without status migrainosus; G24.3 Spasmodic torticollis; M62.838 Other muscle spasm; R20.2 Paresthesia of skin
CPT/HCPCS: 99214

== ENCOUNTER → 2024-01-19 13:55 | Outpatient (BNVA) | payer MEDICAID, SELFPAY | PROVIDERS: PCP Student in an Organized Health Care Education/Training Program; Visit Provider Nurse Practitioner Family | DX: G43.709 Chronic migraine without aura, not intractable, without status migrainosus (principal); G56.03 Carpal tunnel syndrome, bilateral upper limbs; G24.3 Spasmodic torticollis; M62.838 Other muscle spasm; F44.5 Conversion disorder with seizures or convulsions; R20.2 Paresthesia of skin | CPT/HCPCS: 99212 ==

== ENCOUNTER 2024-01-22 14:25 | Outpatient (REF) | payer MEDICAID, SELFPAY ==
[2024-01-22 17:35] LABS: MANUAL DIFF FLAG NO
[2024-01-22 17:40] LABS: Eosinophils Absolute Auto 0.1 X10*3/uL (0.0-0.4); Eosinophils Percent Auto 1.7 % (0-4); Hematocrit 33.1 % (37.0-47.0); Hemoglobin 11.6 g/dl (12.0-16.0); Imm Gran Abs Auto 0.01 X10*3/uL (0.00-0.03); Imm Gran Pct Auto 0.2 % (0.0-0.4); Lymphocytes Absolute Auto 1.6 X10*3/uL (1.2-4.9); Mean Corpuscular Hemoglobin 31.5 pg (27.0-33.0); Mean Corpuscular Volume 89.9 fL (80.0-98.0); Mean Platelet Volume 10.5 fL (9.4-12.3); Monocytes Absolute Auto 0.5 X10*3/uL (0.1-1.2); Monocytes Percent Auto 12.7 % (2-11); Neutrophils Absolute Auto 1.9 x10*3/uL (2.0-8.3); Neutrophils Percent Auto 46.4 % (45-73); Platelet Count 253 X10*3/uL (160-400); Red Blood Count 3.68 X10*6/uL (4.20-5.50); Red Cell Distribution Width 13.3 % (11.0-16.0); White Blood Count 4.2 X10*3/uL (4.8-10.8)
[2024-01-22 18:12] LABS: Prothrombin Time 11.9 SEC (11.1-13.3)
[2024-01-22 18:16] LABS: Alanine Aminotransferase 18 U/L (0-31); Alkaline Phosphatase 61 U/L (39-117); Anion Gap 11 (12-20); Aspartate Amino Transferase 23 U/L (5-31); Bilirubin Total 0.3 mg/dL (0.0-1.0); Blood Urea Nitrogen 9 mg/dL (9-16); Calcium 8.8 mg/dL (8.4-10.2); Carbon Dioxide 25 mmol/L (22-29); Chloride 107 mmol/L (96-108); Estimated Glomerular Filt Rate > 60; Glucose Random 66 mg/dL (60-115); Iron 157 mcg/dL (30-160); Percent Iron Saturation 43 % (15-50); Potassium 3.6 mmol/L (3.3-5.1); Sodium 139 mmol/L (135-145); Total Iron Binding Capacity 365 mcg/dL (228-428); Unsaturated Iron Binding 208 ug/dL
[2024-01-22 18:33] LABS: Ferritin 13 ng/mL (10-250)
== END 2024-01-22 14:26 | disposition home or self-care (01) ==
LOC: HO.CHCLDS 14:25
PROVIDERS: Visit Provider Registered Nurse
DX: Z01.818 Encounter for other preprocedural examination (principal)
CPT/HCPCS: 36415; 80053; 82728; 83540; 85025; 85610

== ENCOUNTER 2024-01-26 13:53 | Outpatient (REF) | payer MEDICAID, SELFPAY ==
--- NOTE | 2024-01-26 13:57 | EMG_ITS ---
Chief complaint: Leg pain and numbness, back pain Reason for referral: Evaluate for neuropathy Referred by: Rosemarie Palmer NP Procedure done: Bilateral lower extremity NCS/EMG Precautions and/or limitations: None The limb temperature was monitored continuously and remained between 32-36 degrees C during the performance of the NCS. Nerve Conduction Studies Anti Sensory Summary Table ?Stim Site NR Onset (ms) Norm Onset (ms) Peak (ms) Norm Peak (ms) O-P Amp (?V) Norm O-P Amp Site1 Site2 Delta-0 (ms) Dist (cm) Henry (m/s) Norm Henry (m/s) Left Sural Anti Sensory (Lat Mall) Calf ? 2.1 2.9 <4.0 27.8 >5.0 Calf Lat Mall 2.1 14.0 67 Right Sural Anti Sensory (Lat Mall) Calf ? 0.9 2.9 <4.0 16.4 >5.0 Calf Lat Mall 0.9 14.0 156 Motor Summary Table ?Stim Site NR Onset (ms) Norm Onset (ms) O-P Amp (mV) Norm O-P Amp iAmp (mV) Amp (1st) (%) Site1 Site2 Delta-0 (ms) Dist (cm) Henry (m/s) Norm Henry (m/s) Left Peroneal Motor (Ext Dig Brev) Ankle ? 3.4 <4.0 5.2 >2.5 6.1 100.0 Ankle Ext Dig Brev 3.4 0.0 B Fib ? 9.2 4.5 5.3 86.5 B Fib Ankle 5.8 32.5 56 >40 Poplt ? 9.8 4.5 5.4 86.5 Poplt B Fib 0.6 5.0 83 >40 Right Peroneal Motor (Ext Dig Brev) Ankle ? 3.0 <4.0 3.5 >2.5 4.0 100.0 Ankle Ext Dig Brev 3.0 0.0 B Fib ? 8.7 3.1 3.6 88.6 B Fib Ankle 5.7 32.0 56 >40 Poplt ? 9.3 3.1 3.5 88.6 Poplt B Fib 0.6 6.0 100 >40 Left Tibial Motor (Abd Seay Brev) Ankle ? 3.6 <5 3.0 >2.5 3.6 100.0 Ankle Abd Seay Brev 3.6 0.0 Knee ? 10.3 2.4 3.8 80.0 Knee Ankle 6.7 37.0 55 >40 Right Tibial Motor (Abd Seay Brev) Ankle ? 3.8 <5 4.0 >2.5 7.1 100.0 Ankle Abd Seay Brev 3.8 0.0 Knee ? 10.2 3.4 5.5 85.0 Knee Ankle 6.4 37.0 58 >40 EMG ?Side Muscle Nerve Root Ins Act Fibs Psw Amp Dur Poly Recrt Int Pat Comment Right AbdHallucis MedPlantar S1-2 Nml Nml Nml Nml Nml 0 Nml Complete Right AntTibialis Dp Br Peron L4-5 Nml Nml Nml Nml Nml 0 Nml Complete Right PostTibialis Tibial L5, S1 Nml Nml Nml Nml Nml 0 Nml Complete Right MedGastroc Tibial S1-2 Nml Nml Nml Nml Nml 0 Nml Complete Right VastusMed Femoral L2-4 Nml Nml Nml Nml Nml 0 Nml Complete Left AbdHallucis MedPlantar S1-2 Nml Nml Nml Nml Nml 0 Nml Complete Left AntTibialis Dp Br Peron L4-5 Nml Nml Nml Nml Nml 0 Nml Complete Left PostTibialis Tibial L5, S1 Nml Nml Nml Nml Nml 0 Nml Complete Left MedGastroc Tibial S1-2 Nml Nml Nml Nml Nml 0 Nml Complete Left VastusMed Femoral L2-4 Nml Nml Nml Nml Nml 0 Nml Complete FINDINGS: All motor and sensory nerves tested showed normal latencies, amplitudes and conduction velocities. Concentric needle EMG was performed in selected muscles of the bilateral lower extremity. Study did not reveal signs of electric abnormalities as shown in the table below. IMPRESSION: 1. This is a normal study. 2. There is no electrodiagnostic evidence for peroneal neuropathy, tibial neuropathy, lumbosacral plexopathy, lumbar radiculopathy, or peripheral neuropathy. Thank you for your kind referral. Selena Benavides MD, JOE Board Certified, [place] [employer] and [employer] (ABPMR) Board Certified, [place] Board [employer] Electrodiagnostic Medicine (ABEM) CODIN 52574 x 2 MTDD
== END 2024-01-26 13:54 | disposition home or self-care (01) ==
LOC: HO.NEURO 13:53
PROVIDERS: PCP Student in an Organized Health Care Education/Training Program; Visit Provider Nurse Practitioner Family
DX: R20.2 Paresthesia of skin (principal); M62.838 Other muscle spasm; R25.3 Fasciculation
CPT/HCPCS: 95886; 95909

== ENCOUNTER → 2024-01-26 13:57 | Outpatient (BNV) | payer MEDICAID, SELFPAY | PROVIDERS: PCP Student in an Organized Health Care Education/Training Program; Visit Provider Physical Medicine & Rehabilitation | DX: R20.2 Paresthesia of skin (principal); M54.50 Low back pain, unspecified; M79.604 Pain in right leg; M79.605 Pain in left leg | CPT/HCPCS: 95886; 95909 ==

== ENCOUNTER 2024-01-29 10:34 | Outpatient (AMB) | payer MEDICAID, SELFPAY ==
--- NOTE | 2024-01-29 10:36 | A.OFFVIS_ITS ---
Vital Signs 01/29/24 10:46 Height 5 ft 3 in Weight 187 lb BMI 33.1 BP 122/80 Blood Pressure Location Lt brachial Position Sitting Pulse 54 Pulse Source Pulse Oximeter Pulse Oximetry (%) 98 Oxygen Delivery Method Room Air Intake Visit Reasons: Botox - Confirmed Intake Note: Patient presents for Botox. Allergies iodine Allergy (Severe, Verified 01/29/24 10:45) Anaphylaxis shellfish derived Allergy (Severe, Verified 01/29/24 10:45) Hives Seasonal Allergies Allergy (Intermediate, Verified 01/29/24 10:45) Watery Eyes Sneezing banana Allergy (Mild, Verified 01/29/24 10:45) Itchy codeine Allergy (Mild, Verified 01/29/24 10:45) Chest Pain morphine Allergy (Mild, Verified 01/29/24 10:45) Chest Pain tree nut Allergy (Mild, Verified 01/29/24 10:45) Itchy watermelon Allergy (Mild, Verified 01/29/24 10:45) Itchy Medication List - Last Reconciled 01/29/24 by Betzaida Solis MD albuterol sulfate 2.5 mg inhalation Q4-6H PRN albuterol sulfate 90 mcg/actuation (ProAir HFA) 2 puffs inhalation QID amitriptyline 10 - 20 mg (1 - 2 x 10 mg) PO BEDTIME 30 days aripiprazole 20 mg PO BEDTIME aspirin 81 mg PO BEDTIME 30 days atorvastatin (Lipitor) 10 mg PO DAILY [Bilateral carpal tunnel wrist splints Use nightly while sleeping] inzmuoivgz-irobchleza-rxn-cod 84-661-06-30 mg 1 cap PO Q4H PRN cabergoline 0.5 mg PO 2XW calcium carbonate-vitamin D3 600 mg-10 mcg (400 unit) 1 tab PO BID cetirizine 10 mg PO DAILY PRN cholecalciferol (vitamin D3) 100 mcg PO DAILY clonazepam 2 mg orally for seizure lasting > 2 minutes, may repeat x's 1 and call 911; 30 days duloxetine 30 mg PO QAM erenumab-aooe (Aimovig Autoinjector) 140 mg subcutaneously monthly; inject 140mg (1 ml) sc once a month 30 days esomeprazole magnesium 20 mg PO QAM ferrous fumarate (Ferretts) 325 mg PO DAILY finasteride 5 mg PO DAILY fluocinolone 0.01% topical TID fluticasone propion-salmeterol 115-21 mcg/actuation (Advair HFA) 2 puffs inhalation ONCE [glucose tab PO PRN] hydroxyzine HCl 25 mg PO BEDTIME ketoconazole 2% 1 appl topical DAILY magnesium oxide 400 mg PO DAILY 30 days meclizine 25 mg PO DAILY PRN montelukast 10 mg PO BEDTIME multivitamin 1 tab PO DAILY onabotulinumtoxinA (Botox) IM ondansetron 4 mg PO Q8H PRN pantoprazole 40 mg PO pyridoxine (vitamin B6) 50 mg PO BID 30 days riboflavin (vitamin B2) 200 mg (2 x 100 mg) PO BID 30 days sertraline 50 mg PO QAM triamcinolone acetonide 0.5% 1 appl topical BID triamcinolone acetonide (Nasacort) 1 spray intranasal DAILY verapamil ER 120 mg PO DAILY 30 days vitamin A 1 cap PO QAM vitamin B complex (B Complex-Vitamin B12 tablet) 1 tab PO DAILY zolmitriptan 5 mg PO Q2H PRN 30 days HPI Comments Details: 53y/o female comes for treatment of her cervical dystonia and migraines ? Side effects including spread of toxin effect, dysphagia, breathing difficulties , bronchitis etc was discussed in detail and the patient agreed to the procedure.An informed consent was obtained ??? Botulinum toxin type [id number] diluted with 2 cc of normal saline each at a concentration of 25 units in 0.5cc saline. Lot number [id number] expiration 01/2026 ??? Muscles injected Bilateral levator 20 units each Zachariah Splenius 25 units each Bilateral trapezius 30 units each Zachariah temporlis 20 units each Zachariah Zygomaticus 5 units each Total use 200 units ??? [facility] Medical History Cataract Pituitary abnormality Sleep disorder GERD (gastroesophageal reflux disease) HTN (hypertension) Diabetes Depression Anemia Surgical History Hx of tonsillectomy H/O tubal ligation H/O section H/O gastric bypass H/O laparoscopic adjustable gastric banding Hx of bilateral breast reduction surgery H/O right knee surgery H/O left knee surgery Family History Father Skin cancer Brother Heart disease Brother Cancer Mother Dementia Social History Household Members Other:: daughter Alcohol intake: never Patient Tobacco Use Status: Former Tobacco user Current occupational status: disabled Physical Exam Vital Signs: Last Vital Signs Pulse 54 01/29/24 10:46 BP 122/80 01/29/24 10:46 Pulse Ox 98 01/29/24 10:46 Oxygen Delivery Method Room Air 01/29/24 10:46 BMI result Body Mass Index 33.1 Const General: cooperative and no acute distress Orientation/consciousness: patient oriented x3 HEENT Head: Yes normocephalic Neuro General: patient oriented x3, gait normal and CN's II-XI intact bilaterally Cognition (Neuro): normal cognition Motor exam (neuro): 5/5 motor strength present throughout Office Procedures Botulinum toxin Injection 10057 - Dystonia Procedure code (CPT) selection complete Office Meds onabotulinumtoxinA 200 unit solution for injection Performing Provider: Betzaida Solis MD Performing Location: [facility] [place] [facility] Administered by: Betzaida Solis MD on 01/29/24 11:15 Dose Route Admin Location Dispensed Lot Number Expiration Date [facility] [address] Registrar 200 unit IM 200 units [id number] 01/19/26 1709-3525-18 ALLERGAN/BOTOX Comments: see hpi Assessment & Plan Assessment & Plan (1) Spasmodic torticollis: Code(s): G24.3 - Spasmodic torticollis Category: Medical Plan Patient tolerated the procedure well she will call with any side effect Continue keppra 750mg bid f/u with Rosemarie Spicer for seizures Orders: Orders AMB Botulinum toxin Injection Today G24.3 - Spasmodic torticollis Medications: New onabotulinumtoxinA 200 units IM ONCE 1 ea 0RF cervical dystonia G24.3 - Spasmodic torticollis Coding Level of Care Code Est Pt Level 1 (18696) Diagnoses Spasmodic torticollis G24.3 CPT Codes Botox Injection - Botox 4: 74306 - Dystonia ([id number])
[2024-01-29 10:46] VITALS: BP 122/80; PULSE 54; O2SAT 98; BMI 33.1
== END 2024-01-29 11:09 | disposition home or self-care (01) ==
PROVIDERS: PCP Student in an Organized Health Care Education/Training Program; Visit Provider Psychiatry & Neurology Neurology
DX: G24.3 Spasmodic torticollis (principal)
CPT/HCPCS: 64616

== ENCOUNTER → 2024-01-29 10:34 | Outpatient (BNVA) | payer MEDICAID, SELFPAY | PROVIDERS: PCP Student in an Organized Health Care Education/Training Program; Visit Provider Psychiatry & Neurology Neurology | DX: G24.3 Spasmodic torticollis (principal) | CPT/HCPCS: 64616; 99211; J0585 ==

== ENCOUNTER 2024-05-02 10:19 | Outpatient (AMB) | payer MEDICAID, SELFPAY ==
--- NOTE | 2024-05-02 10:35 | MHC.OFFVIS ---
Vital Signs 05/02/24 10:36 Height 5 ft 3 in Weight 185 lb BMI 32.8 BP 100/64 Blood Pressure Location Rt brachial Position Sitting Respiration 16 Pulse 73 Pulse Source Pulse Oximeter Pulse Oximetry (%) 97 Oxygen Delivery Method Room Air Intake Visit Reasons: Botox Intake Note: Pt presents to the office for her Botox injections for Spasmodic torticolis. 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 Molding Machine Operator Helper Services: Molding Machine Operator Helper Present Molding Machine Operator Helper Name: Jayne Hi CMA Allergies iodine Allergy (Severe, Verified 05/02/24 10:35) Anaphylaxis shellfish derived Allergy (Severe, Verified 05/02/24 10:35) Hives Seasonal Allergies Allergy (Intermediate, Verified 05/02/24 10:35) Watery Eyes Sneezing banana Allergy (Mild, Verified 05/02/24 10:35) Itchy codeine Allergy (Mild, Verified 05/02/24 10:35) Chest Pain morphine Allergy (Mild, Verified 05/02/24 10:35) Chest Pain tree nut Allergy (Mild, Verified 05/02/24 10:35) Itchy watermelon Allergy (Mild, Verified 05/02/24 10:35) Itchy Medication List - Last Reconciled 05/02/24 by Betzaida Solis MD albuterol sulfate 2.5 mg inhalation Q4-6H PRN albuterol sulfate 90 mcg/actuation (ProAir HFA) 2 puffs inhalation QID amitriptyline 10 - 20 mg (1 - 2 x 10 mg) PO BEDTIME 30 days aripiprazole 20 mg PO BEDTIME aspirin 81 mg PO BEDTIME 30 days atorvastatin (Lipitor) 10 mg PO DAILY [Bilateral carpal tunnel wrist splints Use nightly while sleeping] [id number]-ytmqyycnbp-soa-cod [id number] mg 1 cap PO Q4H PRN calcium carbonate-vitamin D3 600 mg-10 mcg (400 unit) 1 tab PO BID cetirizine 10 mg PO DAILY PRN cholecalciferol (vitamin D3) 100 mcg PO DAILY clonazepam 2 mg orally for seizure lasting > 2 minutes, may repeat x's 1 and call 911; 30 days duloxetine 30 mg PO QAM erenumab-aooe (Aimovig Autoinjector) 140 mg subcutaneously monthly; inject 140mg (1 ml) sc once a month 30 days esomeprazole magnesium 20 mg PO QAM ferrous fumarate (Ferretts) 325 mg PO DAILY finasteride 5 mg PO DAILY fluocinolone 0.01% topical TID fluticasone propion-salmeterol 115-21 mcg/actuation (Advair HFA) 2 puffs inhalation ONCE [glucose tab PO PRN] hydroxyzine HCl 25 mg PO BEDTIME ketoconazole 2% 1 appl topical DAILY magnesium oxide 400 mg PO DAILY 30 days meclizine 25 mg PO DAILY PRN montelukast 10 mg PO BEDTIME multivitamin 1 tab PO DAILY onabotulinumtoxinA (Botox) IM ondansetron 4 mg PO Q8H PRN pantoprazole 40 mg PO pyridoxine (vitamin B6) 50 mg PO BID 30 days riboflavin (vitamin B2) 200 mg (2 x 100 mg) PO BID 30 days sertraline 50 mg PO QAM triamcinolone acetonide 0.5% 1 appl topical BID triamcinolone acetonide (Nasacort) 1 spray intranasal DAILY verapamil ER 120 mg PO DAILY 30 days vitamin A 1 cap PO QAM vitamin B complex (B Complex-Vitamin B12 tablet) 1 tab PO DAILY zolmitriptan 5 mg PO Q2H PRN 30 days HPI Comments Details: 53y/o female comes for treatment of her cervical dystonia and migraines she reports pain in her forehead and sinuses. she has an appointment with ENT ? Side effects including spread of toxin effect, dysphagia, breathing difficulties , bronchitis etc was discussed in detail and the patient agreed to the procedure.An informed consent was obtained ??? Botulinum toxin type [id number] diluted with 2 cc of normal saline each at a concentration of 25 units in 0.5cc saline. Lot number [id number] expiration 07/2026 ??? Muscles injected Bilateral levator 20 units each Zachariah Splenius 25 units each Bilateral trapezius 30 units each Zachariah temporlis 20 units each Zachariah Zygomaticus 5 units each Total use 200 units She is following up with [facility] clinic at [facility] [place] [place] for psychogenic seizures ??? [facility] Medical History Cataract Pituitary abnormality Sleep disorder GERD (gastroesophageal reflux disease) HTN (hypertension) Diabetes Depression Anemia Surgical History Hx of tonsillectomy H/O tubal ligation H/O section H/O gastric bypass H/O laparoscopic adjustable gastric banding Hx of bilateral breast reduction surgery H/O right knee surgery H/O left knee surgery Family History Father Skin cancer Brother Heart disease Brother Cancer Mother Dementia Social History Household Members Other:: daughter Alcohol intake: never Patient Tobacco Use Status: Former Tobacco user Current occupational status: disabled Physical Exam Vital Signs: Last Vital Signs Pulse 73 05/02/24 10:36 Resp 16 05/02/24 10:36 BP 100/64 05/02/24 10:36 Pulse Ox 97 05/02/24 10:36 Oxygen Delivery Method Room Air 05/02/24 10:36 BMI result Body Mass Index 32.8 Const General: cooperative and no acute distress Orientation/consciousness: patient oriented x3 HEENT Head: Yes normocephalic Neuro General: patient oriented x3, gait normal and CN's II-XI intact bilaterally Cognition (Neuro): normal cognition Motor exam (neuro): 5/5 motor strength present throughout Office Procedures Botulinum toxin Injection 52010 - Dystonia Procedure code (CPT) selection complete Office Meds onabotulinumtoxinA 200 unit solution for injection Performing Provider: Betzaida Solis MD Performing Location[place] [facility] Administered by: Betzaida Solis MD on 05/02/24 11:17 Dose Route Admin Location Dispensed Lot Number Expiration Date [facility] Solid Waste [employer] 200 unit IM 200 units [id number] 07/21/26 2170-0305-46 [employer] Comments: see HPI Assessment & Plan Assessment & Plan (1) Spasmodic torticollis: Code(s): G24.3 - Spasmodic torticollis Category: Medical Plan Patient tolerated the procedure well she will call with any side effect F/u FND clinic Ct sinus Orders: Orders CT sinus wo IV con Today J32.9 - Chronic sinusitis, unspecified AMB Botulinum toxin Injection Today G24.3 - Spasmodic torticollis Medications: New onabotulinumtoxinA 200 units IM ONCE 1 ea 0RF torticollis G24.3 - Spasmodic torticollis Coding Level of Care Code Est Pt Level 1 (78412) Diagnoses Spasmodic torticollis G24.3 CPT Codes Botox Injection - Botox 4: 38452 - Dystonia ([id number])
[2024-05-02 10:36] VITALS: BP 100/64; PULSE 73; RESP 16; O2SAT 97; BMI 32.8
== END 2024-05-02 11:06 | disposition home or self-care (01) ==
PROVIDERS: PCP Student in an Organized Health Care Education/Training Program; Visit Provider Psychiatry & Neurology Neurology
DX: G24.3 Spasmodic torticollis (principal)
CPT/HCPCS: 64616

== ENCOUNTER → 2024-05-02 10:19 | Outpatient (BNVA) | payer MEDICAID, SELFPAY | PROVIDERS: PCP Student in an Organized Health Care Education/Training Program; Visit Provider Psychiatry & Neurology Neurology | DX: G24.3 Spasmodic torticollis (principal) | CPT/HCPCS: 64616; 99211; J0585 ==

== ENCOUNTER 2024-06-26 13:10 | Outpatient (AMB) | payer MEDICAID, SELFPAY ==
--- NOTE | 2024-06-26 13:20 | MHC.OFFVIS ---
Vital Signs 06/26/24 13:21 Height 5 ft 3 in Weight 179 lb 3.773 oz BMI 31.7 BP 124/68 Blood Pressure Location Lt brachial Position Sitting Pulse 63 Pulse Source Pulse Oximeter Pulse Oximetry (%) 98 Oxygen Delivery Method Room Air Intake Visit Reasons: Arthralgia/CM Intake Note: Patient presents with pain in body, especially hips and her legs at night, very severe. Accompanied by: Significant Other Allergies iodine Allergy (Severe, Verified 06/26/24 13:24) Anaphylaxis shellfish derived Allergy (Severe, Verified 06/26/24 13:24) Hives Seasonal Allergies Allergy (Intermediate, Verified 06/26/24 13:24) Watery Eyes Sneezing banana Allergy (Mild, Verified 06/26/24 13:24) Itchy codeine Allergy (Mild, Verified 06/26/24 13:24) Chest Pain morphine Allergy (Mild, Verified 06/26/24 13:24) Chest Pain tree nut Allergy (Mild, Verified 06/26/24 13:24) Itchy watermelon Allergy (Mild, Verified 06/26/24 13:24) Itchy Medication List - Last Reconciled 06/26/24 by Mony Soto MD albuterol sulfate 2.5 mg inhalation Q4-6H PRN albuterol sulfate 90 mcg/actuation (ProAir HFA) 2 puffs inhalation QID amitriptyline 10 - 20 mg (1 - 2 x 10 mg) PO BEDTIME 30 days aripiprazole 20 mg PO BEDTIME aspirin 81 mg PO BEDTIME 30 days atorvastatin (Lipitor) 10 mg PO DAILY [Bilateral carpal tunnel wrist splints Use nightly while sleeping] kkbrxmreii-jeoylknbbx-jdq-cod [id number] mg 1 cap PO Q4H PRN calcium carbonate-vitamin D3 600 mg-10 mcg (400 unit) 1 tab PO BID cetirizine 10 mg PO DAILY PRN clonazepam 2 mg orally for seizure lasting > 2 minutes, may repeat x's 1 and call 911; 30 days duloxetine 30 mg PO QAM erenumab-aooe (Aimovig Autoinjector) 140 mg subcutaneously monthly; inject 140mg (1 ml) sc once a month 30 days esomeprazole magnesium 20 mg PO QAM ferrous fumarate (Ferretts) 325 mg PO DAILY finasteride 5 mg PO DAILY fluocinolone 0.01% topical TID fluticasone propion-salmeterol 115-21 mcg/actuation (Advair HFA) 2 puffs inhalation ONCE [glucose tab PO PRN] hydroxyzine HCl 25 mg PO BEDTIME ketoconazole 2% 1 appl topical DAILY magnesium oxide 400 mg PO DAILY 30 days meclizine 25 mg PO DAILY PRN montelukast 10 mg PO BEDTIME multivitamin 1 tab PO DAILY onabotulinumtoxinA (Botox) IM ondansetron 4 mg PO Q8H PRN pantoprazole 40 mg PO pyridoxine (vitamin B6) 50 mg PO BID 30 days riboflavin (vitamin B2) 200 mg (2 x 100 mg) PO BID 30 days sertraline 50 mg PO QAM triamcinolone acetonide 0.5% 1 appl topical BID triamcinolone acetonide (Nasacort) 1 spray intranasal DAILY verapamil ER 120 mg PO DAILY 30 days vitamin A 1 cap PO QAM vitamin B complex (B Complex-Vitamin B12 tablet) 1 tab PO DAILY zolmitriptan 5 mg PO Q2H PRN 30 days HPI Comments Details: Patient is a 53-year-old female psychogenic nonepileptic seizures, hypertension, diabetes, depression, chronic migraine who presents for evaluation of polyarthralgias. Patient has been having chronic back pain for the past several years. Had gotten a x-ray done back in 2020 which showed spondylosis of her spine. Has had spinal injections in the past but stopped them because she was concerned for the complications surrounding steroid use and osteoporosis. Over time she has noticed that her back has worsened and now also complains of bilateral outer hip pain. Patient unable to lay on either side at night. Feels uncomfortable. Also notes pain to her bilateral knees worse at the end of the day especially when walking downstairs. Unable to use stairs now at all. Denies rashes, photosensitivity, alopecia, oral/nasal ulcers, sicca symptoms, lymphadenopathy, chest pain/shortness of breath, inflammatory type joint pain, foamy urine, lower extremity edema, muscle weakness, Raynaud's Also denies history of kidney problems, history of cytopenias, history of VTE including PE or DVTs Of note patient has psychogenic nonepileptic seizures and has fallen several times in the past. She does not recall falling prior to worsening of her pains over the few months stating that her last fall was about a year ago. [facility] Medical History (Updated 06/26/24 @ 14:12 by Mony Soto MD) Greater trochanteric bursitis of both hips Osteoarthritis involving multiple joints on both sides of body Cataract Pituitary abnormality Sleep disorder GERD (gastroesophageal reflux disease) HTN (hypertension) Diabetes Depression Anemia Surgical History Hx of tonsillectomy H/O tubal ligation H/O section H/O gastric bypass H/O laparoscopic adjustable gastric banding Hx of bilateral breast reduction surgery H/O right knee surgery H/O left knee surgery Family History Father Skin cancer Brother Heart disease Brother Cancer Mother Dementia Social History Household Members Other:: daughter Alcohol intake: never Patient Tobacco Use Status: Former Tobacco user Current occupational status: disabled Review of Systems Const Details: Review of Systems Constitutional: Denies fever, chills, weight loss ENT: Denies vision changes, eye pain or eye redness, dental caries, dry mouth GI: Denies nausea, vomiting, diarrhea, abdominal pain, change in BM Pulm: Denies SOB, PALM, hemoptysis, wheezing Cards: Denies chest pain, palpitations Skin: Denies Raynaud's, rash, nail changes, photosensitivity, COASTAL TUG MATE: Denies headaches, weakness, paresthesias, recurrent falls MSK: as per HPI All other systems reviewed and are unremarkable except noted above Physical Exam Vital Signs: Last Vital Signs Pulse 63 06/26/24 13:21 BP 124/68 06/26/24 13:21 Pulse Ox 98 06/26/24 13:21 Oxygen Delivery Method Room Air 06/26/24 13:21 BMI result Body Mass Index 31.7 Physical Examination CONSTITUITIONAL Patient alert and cooperative. Well appearing and in no apparent painful distress HEENT Conjunctiva and sclera clear. ?Pupils equal round and reactive to light. ?No lymphadenopathy. ?Normal dentition. No oral or nasal ulcers noted. No evidence of discoid rash to the michael of ears CHEST/RESPIRATORY SYSTEM Normal respiratory effort and able to speak in complete sentences. ?Clear to auscultation bilaterally. ?No crackles, rales, rhonchi, wheezes heard. CARDIAC SYSTEM Regular rate and rhythm. ?S1 and S2 heard no murmurs. 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 ?No deformities noted. ?No synovitis noted to the MCPs, PIPs or DIPs. ?No tenderness to palpation of these joints. Wrists: ?Full range of motion at the wrists without pain. ?No tenderness to palpation or synovitis noted to the wrists. Elbows: Full range of motion without pain. No tenderness, weakness, swelling, increased warmth or erythema. Shoulders: Full range of motion without pain. No tenderness, weakness, swelling, increased warmth or erythema. Hips: Full range of motion without pain. Hip bursa: Tenderness to palpation bilateral Knees: ?Full range of motion. ?No tenderness, swelling, increased warmth or erythema.?No effusion or crepitations Ankles: Full range of motion. ?No tenderness, swelling, increased warmth or erythema.? Feet: ?Negative squeeze test. ?No tenderness to palpation or swelling of the MTPs. Tender points:??No tenderness to palpation of the neck, shoulders, chest, elbows, hips, buttocks or knees. SKIN Skin intact without rashes. Office Procedures AMB Joint Injection/Aspiration Joint Injection/Aspiration Details: Procedure was explained to the patient and consent was obtained. ? The area of interest was identified and confirmed with patient. ?This was subsequently cleaned with chlorhexidine x3. ? The area was then anesthetized using ethyl chloride spray. 40 mg Kenalog with 1 cc 1% lidocaine was injected without issue. ?Minimal to no bleeding. ?Patient tolerated procedure. Primary Site: other (Right greater trochanteric bursa) Prep: site was prepped using aseptic technique and ethochloride spray was applied Injected: 40 mg of, with 1 mL of, 1% plain lidocaine and other (Into the trochanteric bursa) Approach Used: other (Lateral approach) Procedure: The patient tolerated the procedure well Coding 35298 - Glenohumeral/Tronchanteric Bursa/Intraarticular Procedure code (CPT) selection complete AMB Joint Injection/Aspiration Joint Injection/Aspiration Details: Procedure was explained to the patient and consent was obtained. ? The area of interest was identified and confirmed with patient. ?This was subsequently cleaned with chlorhexidine x3. ? The area was then anesthetized using ethyl chloride spray. 40 mg Kenalog with 1 cc 1% lidocaine was injected without issue. ?Minimal to no bleeding. ?Patient tolerated procedure. Primary Site: other (Left trochanteric bursa) Prep: site was prepped using aseptic technique and ethochloride spray was applied Injected: 40 mg of, Kenalog, with 1 mL of, 1% plain lidocaine and other (Into the trochanteric bursa space) Approach Used: other (Lateral approach) Procedure: The patient tolerated the procedure well Coding 99398 - Glenohumeral/Tronchanteric Bursa/Intraarticular Procedure code (CPT) selection complete Office Meds Kenalog 40 mg/mL suspension for injection Performing Provider: Mony Soto MD Performing Location: [facility] [facility] Administered by: Mony Soto MD on 06/26/24 14:28 Dose Route Admin Location Dispensed Lot Number Expiration Date [facility] [employer] 40 mg intrabursal right trochanteric bursa 1 mL [id number] 12/19/25 [address]-2 [employer] lidocaine (PF) 10 mg/mL (1 %) injection solution Performing Provider: Mony Soto MD Performing Location: [facility] Administered by: Mony Soto MD on 06/26/24 14:28 Dose Route Admin Location Dispensed Lot Number Expiration Date [facility] [employer] 10 mg Infiltration 2 mL [id number] 11/19/26 13057-570-44 [facility] Kenalog 40 mg/mL suspension for injection Performing Provider: Mony Soto MD Performing Location: [facility] [place] [facility] Administered by: Mony Soto MD on 06/26/24 14:36 Dose Route Admin Location Dispensed Lot Number Expiration Date [facility] [employer] 40 mg intrabursal Left trochanteric bursa 1 mL [id number] 12/23/25 [address]-8 [employer] lidocaine (PF) 10 mg/mL (1 %) injection solution Performing Provider: Mony Soto MD Performing Location: [facility] [place] [facility] Administered by: Mony Soto MD on 06/26/24 14:36 Dose Route Admin Location Dispensed Lot Number Expiration Date [facility] [employer] 10 mg Infiltration Left trochanteric bursa 2 mL [id number] 11/19/26 03186-416-44 [facility] Results Reviewed Results Reviewed: CT scan of C-spine image reviewed on patient's phone. Evidence of arthritic changes and spondylosis. Lumbar Spine XR 01/11/21 FINDINGS: Normal vertebral body alignment. The lumbar lordosis is maintained. No acute fracture or subluxation. No loss of vertebral body height. Minimal multilevel loss of intervertebral disc height with tiny anterior endplate osteophytes, most prominent at L2-L3. No lytic or blastic osseous lesion. Multiple surgical clips. Knee XR 01/11/21 FINDINGS: Mild medial compartment joint space narrowing with small marginal osteophytes. Tiny patellofemoral compartment marginal osteophytes. No osseous erosion. No fracture or dislocation. No abnormal soft tissue calcification. No significant joint effusion. Laboratory Tests 01/22/24 14:27 WBC 4.2 L RBC 3.68 L Hgb 11.6 L Hct 33.1 L Plt Count 253 Sodium 139 Potassium 3.6 Chloride 107 Carbon Dioxide 25 BUN 9 Creatinine 0.67 Assessment & Plan Assessment & Plan (1) Osteoarthritis involving multiple joints on both sides of body: Code(s): M15.9 - Polyosteoarthritis, unspecified Category: Medical Plan: #Polyarticular OA Patient exam, history and imaging consistent with polyarticular osteoarthritis involving her C-spine, L-spine as well as her knees. Recommended Celebrex 1 tablet twice a day and physical therapy. (2) Greater trochanteric bursitis of both hips: Code(s): M70.61 - Trochanteric bursitis, right hip; M70.62 - Trochanteric bursitis, left hip Category: Medical Plan: #Trochanteric bursitis bilateral Status post steroid injection to bilateral trochanteric bursa. Plan I spent 45 minutes reviewing the record and labs, seeing the patient, discussing the treatment plan and documenting in the medical record ? For next visit: Follow up OA as well as follow up greater trochanteric bursitis post injection Orders: Orders PT Evaluation and Treatment Today M17.0 - Bilateral primary osteoarthritis of knee, M47.812 - Spondylosis without myelopathy or radiculopathy, cervical region, M47.816 - Spondylosis without myelopathy or radiculopathy, lumbar region AMB Joint Injection/Aspiration Today M70.61 - Trochanteric bursitis, right hip, M70.62 - Trochanteric bursitis, left hip AMB Joint Injection/Aspiration Today M70.61 - Trochanteric bursitis, right hip, M70.62 - Trochanteric bursitis, left hip Medications: New celecoxib (Celebrex) 200 mg PO BID 180 caps 1RF M15.9 - Polyosteoarthritis, unspecified, M70.61 - Trochanteric bursitis, right hip, M70.62 - Trochanteric bursitis, left hip Kenalog (triamcinolone acetonide) 40 mg intrabursal ONCE 1 mL 0RF NS M70.61 - Trochanteric bursitis, right hip, M70.62 - Trochanteric bursitis, left hip lidocaine (PF) 10 mg Infiltration ONCE 1 mL 0RF M70.61 - Trochanteric bursitis, right hip, M70.62 - Trochanteric bursitis, left hip Coding Level of Care Code New Pt Level 4 (17616) Diagnoses Osteoarthritis involving multiple joints on both sides of body M15.9 Greater trochanteric bursitis of both hips M70.61; M70.62 CPT Codes Coding - Joint 7: 53917 - Glenohumeral/Tronchanteric Bursa/Intraarticular ([id number]) Coding - Joint 7: 73126 - Glenohumeral/Tronchanteric Bursa/Intraarticular ([id number])
[2024-06-26 13:21] VITALS: BP 124/68; PULSE 63; O2SAT 98; BMI 31.7
== END 2024-06-26 14:18 | disposition home or self-care (01) ==
LOC: HO.RHE 13:10
PROVIDERS: PCP Student in an Organized Health Care Education/Training Program; Visit Provider Student in an Organized Health Care Education/Training Program
DX: M15.9 Polyosteoarthritis, unspecified (principal); M70.61 Trochanteric bursitis, right hip; M70.62 Trochanteric bursitis, left hip
CPT/HCPCS: 20610; 99204

== ENCOUNTER → 2024-06-26 13:10 | Outpatient (BNVA) | payer MEDICAID, SELFPAY | PROVIDERS: PCP Student in an Organized Health Care Education/Training Program; Visit Provider Student in an Organized Health Care Education/Training Program | DX: M17.0 Bilateral primary osteoarthritis of knee (principal); M70.61 Trochanteric bursitis, right hip; M70.62 Trochanteric bursitis, left hip; M47.812 Spondylosis without myelopathy or radiculopathy, cervical region; M47.816 Spondylosis without myelopathy or radiculopathy, lumbar region | CPT/HCPCS: 20610; 99202; J2003; J3300 ==

== ENCOUNTER 2024-07-29 07:48 | Outpatient (REF) | payer MEDICAID, SELFPAY ==
--- OUTSIDE RECORDS SUMMARY | 2024-07-31 12:41 | XMS_ITS | Continuity of Care Document ---
Author Organization [facility] Address [address] [place] [address]- Care Team Providers Care Museum Service Scheduler Name Role Phone Gabbie Cisneros MD Primary Care Physician [place] [facility] [place]/27/24 [facility] [address] [place] [id number]- Encounter Type: Triage Allergies, Adverse Reactions, Alerts Substance Criticality Severity Reaction Reaction Severity Status iv contrast 1 Unable to assess criticality Persistent Mild hives,itching Contrast injection(s) for radiologic evaluation of existing central venous access device, including fluoroscopy, image documentation and report 01-MAY-2018 23:08:33<$> Active codeine HIVES ALL OVER BODY HEART RATE INCREASED Active shellfish hard to breath Activ e Nuts TREE NUTS THROAT GETS ITCHY DIFFICULTY BREATHING Active Watermelon Difficulty breathing Active morphine 2 TACHYCARDIA Active Keppra Active Cats SNEEZING BAD HIVES A ctive Dogs sneeze, itchy watery eyes and throat Active Dust HIVES SNEEZING Activ e Avocado Difficulty breathing Active Bananas Difficulty breathing Active 1hives 2anxiety Immunizations Given and Recorded Vaccine Date Status Refusal Reason SARS-CoV-2 mRNA (omddyaq-jmrp-umjth) vax 11/12/21 Recorded SARS-CoV-2 (COVID-19) mRNA BNT-162b2 vac 01/01/21 Given SARS-CoV-2 (COVID-19) mRNA BNT-162b2 vac 12/11/20 Given tetanus/diphtheria/pertussis, acel(Tdap) 04/16/18 Recorded influenza virus vaccine, inactivated 05/11/09 Give n Pneumococcal Vaccine (oldterm) 1 01/27/09 Given 1Result Comment: [facility] [id number] jan 03 2010 Medications Advair HFA 230 mcg / 21 mcg 2 puffs, Inhalation, 2 times a day, # 12 Gm, 12 Refills, Maintenance, 04/01/24 11:37:00 AM EDT, [facility] #[id number], 30, INHALE 2 PUFFS BY MOUTH TWICE DAILY, 160, cm, 12/25/23 13:22:00 EDT, Height, 81, kg, 04/20/23 14:29:00 EDT, Dry Weight Start Date: 04/01/24 Status: Ordered Quantity: 12.0 Unit: g Repeat number: 1 Aerochamber See Instructions, # 1 each, Refills 0, Tot. Refills 0, Maintenance, use with symbicort, 05/28/20 12:39:00 PM EDT, Supply, 160, cm, 05/28/20 11:11:00 EDT, Height, 76.5, kg, 04/07/20 19:50:00 EDT, Dry Weight Start Date: 05/28/20 Status: Ordered Quantity: 1.0 Unit: each Repeat number: 1 Aimovig SureClick Autoinjector-aooe 140 mg/mL subcutaneous solution 0 Refills, Maintenance, 04/08/23 9:57:00 PM EDT, Partial fill upon patient request if the prescription is for a schedule II opioid drug. Start Date: 04/08/23 Status: Ordered Repeat number: 1 Albuterol (Eqv-ProAir HFA) 90 mcg/inh inhalation aerosol 2 puffs, Inhalation, Every 6 hours, # 6.7 Gm, 11 Refills, Maintenance, 02/07/23 11:09:00 AM EDT, [facility] #[id number], 2 puffs Inhalation Every 6 hours, 159, cm, 02/07/23 10:56:00 EDT, Height, 87, kg, 09/19/22 3:10:00 EST, Dry Weight Start Date: 02/07/23 Status: Ordered Quantity: 6.7 Unit: g Repeat number: 12 Alcohol Pads Maintenance, 06/18/24 8:57:00 AM EDT, Supply Start Date: 06/18/24 Status: Ordered Repeat number: 1 amitriptyline 10 mg oral tablet 20 mg, 2, tablet, By Mouth, Daily at bedtime, # 180 tablet, Refills 0, Maintenance, 02/07/23 11:07:00 PM EDT, Partial fill upon patient request if the prescription is for a schedule II opioid drug. Start Date: 02/07/23 Status: Ordered Quantity: 180.0 Unit: tablet Repeat number: 1 Aspirin Enteric Coated 81 mg oral delayed release tablet TAKE ONE TABLET AT BEDTIME Start Date: 02/16/21 Status: Ordered Repeat number: 1 azelastine 137 mcg/inh (0.1%) nasal spray See Instructions, USE 2 SPRAYS IN EACH NOSTRIL DAILY NEEDED FOR ALLERGIES, # 30 mL, 11 Refills, Maintenance, 04/01/24 11:37:00 AM EDT, [facility] #[id number], 50, USE 2 SPRAYS IN EACH NOSTRIL DAILY NEEDED FOR ALLERGIES, 160, cm, 12/25/23 13:22:00 EDT, Height, 81, kg, 04/20/23 14:29:00 EDT, Dry Weight Start Date: 04/01/24 Status: Ordered Quantity: 30.0 Unit: mL Repeat number: 1 Botox 0 Refills, Maintenance, 02/02/22 11:01:00 AM EDT, Partial fill upon patient request if the prescription is for a schedule II opioid drug. Start Date: 02/02/22 Status: Ordered Repeat number: 1 buPROPion 150 mg/24 hours (XL) oral tablet, extended release 1 tablet = 150 mg, By Mouth, Every 24 hours, # 30 tablet, 0 Refills, Maintenance, 06/18/24 9:03:00 AM EDT, ER Tablet, Partial fill upon patient request if the prescription is for a schedule II opioiddrug. Start Date: 06/18/24 Status: Ordered Quantity: 30.0 Unit: tablet Repeat number: 1 cabergoline 0.5 mg oral tablet TAKE 2 TABLETS BY MOUTH TWICE WEEKLY Start Date: 02/08/23 Status: Ordered Repeat number: 1 calcium-vitamin D 600 mg-400 intl units oral tablet TAKE ONE TABLET BY MOUTH TWICE DAILY AT NOON AND IN THE EVENING Start Date: 02/16/21 Status: Ordered Repeat number: 1 clonazePAM 2 mg oral tablet 1 tablet = 2 mg, By Mouth, 3 times a day, 0 Refills, Maintenance, 06/18/24 8:58:00 AM EDT, Partial fill upon patient request if the prescription is for a schedule II opioid drug. Start Date: 06/18/24 Status: Ordered Repeat number: 1 esomeprazole 20 mg oral enteric coated capsule 1 capsule = 20 mg, By Mouth, Daily, # 30 capsule, 0 Refills, Maintenance, 02/02/22 11:02:00 AM EDT, EC Capsule, Partial fill upon patient request if the prescription is for a schedule II opioid drug. Start Date: 02/02/22 Status: Ordered Quantity: 30.0 Unit: capsule Repeat number: 1 ferrous sulfate 325 mg oral enteric coated tablet 325 mg, 1, tablet, By Mouth, Daily, # 30 tablet, Refills 0, Maintenance, 09/18/22 10:58:00 PM EST, Partial fill upon patient request if the prescription is for a schedule II opioid drug. Start Date: 09/18/22 Status: Ordered Quantity: 30.0 Unit: tablet Repeat number: 1 fluocinolone 0.01% topical oil 1 applicator, Topically, 3 times a day, 0 Refills, Maintenance, 06/18/24 8:55:00 AM EDT, Partial fill upon patient request if the prescription is for a schedule II opioid drug. Start Date: 06/18/24 Status: Ordered Repeat number: 1 Freestyle InsuLinx Test Strips Maintenance, 06/18/24 8:57:00 AM EDT, Supply Start Date: 06/18/24 Status: Ordered Repeat number: 1 haloperidol 1 mg oral tablet TAKE ONE TABLET EVERY MORNING and TAKE TWO TABLETS EVERY DAY AT BEDTIME Start Date: 04/10/23 Status: Ordered Repeat number: 1 hydrOXYzine hydrochloride 25 mg oral tablet 1 tablet = 25 mg, By Mouth, Daily, # 30 tablet, 0 Refills, Maintenance, 09/18/22 11:10:00 PM EST, Tablet, Partial fill upon patient request if the prescription is for a schedule II opioid drug. Start Date: 09/18/22 Status: Ordered Quantity: 30.0 Unit: tablet Repeat number: 1 ibuprofen 800 mg oral tablet 800 mg, 1, tablet, By Mouth, 3 times a day, Refills 0, Maintenance, 06/18/24 8:58:00 AM EDT, Partial fill upon patient request if the prescription is for a schedule II opioid drug. Start Date: 06/18/24 Status: Ordered Repeat number: 1 Indomethacin = 50 mg, By Mouth, 2 times a day, 0 Refills, Maintenance, 05/01/24 9:35:00 AM EDT, Partial fill uponpatient request if the prescription is for a schedule II opioid drug. Start Date: 05/01/24 Status: Ordered Repeat number: 1 ketoconazole 1% topical shampoo 1 applicator, Topically, Every third day, 0 Refills, Maintenance, 06/18/24 8:56:00 AM EDT, Partial fill upon patient request if the prescription is for a schedule II opioid drug. Start Date: 06/18/24 Status: Ordered Repeat number: 1 ketotifen 0.025% ophthalmic solution 1 drops, Every 8 hours, 0 Refills, Maintenance, 06/18/24 8:58:00 AM EDT, Partial fill upon patient request if the prescription is for a schedule II opioid drug. Start Date: 06/18/24 Status: Ordered Repeat number: 1 Lancets Maintenance, 06/18/24 8:57:00 AM EDT, Supply Start Date: 06/18/24 Status: Ordered Repeat number: 1 Lipitor 10 mg oral tablet 1 tablet = 10 mg, By Mouth, Daily at bedtime, 0 Refills, Maintenance Start Date: 08/06/18 Status: Ordered Repeat number: 1 loratadine 10 mg oral tablet 1, tablet, By Mouth, Daily, # 30 tablet, Refills 12, Maintenance, 04/01/24 11:37:00 AM EDT, Route toPharmacy Electronically, [facility] #[id number], 160, cm, 12/25/23 13:22:00 EDT, Height, 81, kg, 04/20/23 14:29:00 EDT, Dry Weight Start Date: 04/01/24 Status: Ordered Quantity: 30.0 Unit: tablet Repeat number: 1 magnesium oxide 400 mg (240 mg elemental magnesium) oral tablet 1 tablet = 400 mg, By Mouth, Daily, # 100 tablet, 0 Refills, Maintenance, 05/06/20 3:30:00 PM EDT, Tablet Start Date: 05/06/20 Status: Ordered Quantity: 100.0 Unit: tablet Repeat number: 1 montelukast 10 mg oral tablet 1, tablet, By Mouth, Daily at bedtime, # 30 tablet, Refills 11, Maintenance, 10/24/23 11:14:00 AM EST, Route to Pharmacy Electronically, [facility], 160, cm, 04/20/23 15:09:00 EDT,Height, 81, kg, 04/20/23 14:29:00 EDT, Dry Weight Start Date: 10/24/23 Status: Ordered Quantity: 30.0 Unit: tablet Repeat number: 1 Multivitamin By Mouth, Daily, 0 Refills, Maintenance, 05/28/20 11:19:00 AM EDT Start Date: 05/28/20 Status: Ordered Repeat number: 1 omeprazole 20 mg oral enteric coated capsule 1 capsule = 20 mg, By Mouth, 2 times a day, # 120 capsule, 1 Refills, Maintenance, 06/18/24 11:08:00 AM EDT, [facility] #[id number], Partial fill upon patient request if the prescription is for a schedule II opioid drug., 160, cm, 06/18/24 9:14:00 EDT, Height, 81.6, kg, 06/18/24 9:14:00 EDT, Dry Weight Start Date: 06/18/24 Stop Date: 10/16/24 Status: Ordered Quantity: 120.0 Unit: capsule Repeat number: 2 ondansetron 4 mg oral tablet 1 tablet = 4 mg, By Mouth, Every 8 hours, 0 Refills, Maintenance, 06/18/24 8:55:00 AM EDT, Partial fill upon patient request if the prescription is for a schedule II opioid drug. Start Date: 06/18/24 Status: Ordered Repeat number: 1 pantoprazole 40 mg oral delayed release tablet 1 tablet = 40 mg, By Mouth, Daily, 0 Refills, Maintenance, 06/18/24 8:58:00 AM EDT Start Date: 06/18/24 Status: Ordered Repeat number: 1 Physical Therapy Physical Therapy, See Instructions, # 1 each, Refills 0, Tot. Refills 0, Maintenance, Z74. 0 (Reduced mobility). Outpatient PT, 04/10/23 4:15:00 PM EDT, Supply Start Date: 04/10/23 Status: Ordered Quantity: 1.0 Unit: each Repeat number: 1 Premarin Vaginal 0.625 mg/gm cream with applicator = 1 Gm, Vaginally, Daily before dinner, 0 Refills, Maintenance, 06/18/24 8:57:00 AM EDT, Partial fill upon patient request if the prescription is for a schedule II opioid drug. Start Date: 06/18/24 Status: Ordered Repeat number: 1 sertraline 50 mg oral tablet 1 tablet = 50 mg, By Mouth, Daily, # 30 tablet, 0 Refills, Maintenance, 09/18/22 11:09:00 PM EST, Tablet, Partial fill upon patient request if the prescription is for a schedule II opioid drug. Start Date: 09/18/22 Status: Ordered Quantity: 30.0 Unit: tablet Repeat number: 1 TEGretol XR 400 mg oral tablet, extended release 400 mg, 1, tablet, By Mouth, 2 times a day, # 60 tablet, Refills 0, Tot. Refills 0, Maintenance, 08/17/23 11:33:00 AM EST, Route to Pharmacy Electronically, [facility] #[id number], Partial fill upon patient request if the prescription is for a schedule II opioid drug., 160, cm, 04/20/23 15:09:00 EDT, Height, 81, kg, 04/20/23 14:29:00 EDT, Dry Weight Start Date: 08/17/23 Status: Ordered Quantity: 60.0 Unit: tablet Repeat number: 1 Triamcinolone Once, 0 Refills, Maintenance, 06/18/24 8:55:00 AM EDT, Partial fill upon patient request if the prescription is for a schedule II opioid drug. Start Date: 06/18/24 Status: Ordered Repeat number: 1 verapamil 120 mg oral tablet See Instructions, DAILY AT BEDTIME FOR MIGRAINES, 0 Refills, Maintenance, 06/18/24 9:01:00 AM EDT, Partial fill upon patient request if the prescription is for a schedule II opioid drug. Start Date: 06/18/24 Status: Ordered Repeat number: 1 Vitamin A = 10,000 units, By Mouth, Daily, 0 Refills, Maintenance, 05/28/20 11:15:00 AM EDT Start Date: 05/28/20 Status: Ordered Repeat number: 1 Vitamin B2 100 mg oral tablet 1 tablet = 100 mg, By Mouth, 2 times a day, # 30 tablet, 0 Refills, Maintenance, 09/18/22 11:15:00 PM EST, Tablet, Partial fill upon patient request if the prescription is for a schedule II opioid drug. Start Date: 09/18/22 Status: Ordered Quantity: 30.0 Unit: tablet Repeat number: 1 Vitamin B6 50 mg oral tablet 50 mg, 1, tablet, By Mouth, 2 times a day, # 10 tablet, Refills 0, Maintenance, 09/18/22 11:14:00 PMEST, Partial fill upon patient request if the prescription is for a schedule II opioid drug. Start Date: 09/18/22 Stop Date: 09/28/22 Status: Ordered Quantity: 10.0 Unit: tablet Repeat number: 1 Vitamin D3 50 mcg (2000 intl units) oral tablet, chewable 1 tablet = 50 mcg, By Mouth, Daily, 0 Refills, Maintenance, 06/18/24 9:02:00 AM EDT, Partial fill upon patient request if the prescription is for a schedule II opioid drug. Start Date: 06/18/24 Status: Ordered Repeat number: 1 Problem List Condition Confirmation Course Effective Dates Status Health Status Informant Anemia Confirmed Active Asthma in adult Confirmed Active Last pap smear 09/11/18 negative with negative HPV Confirmed Active Chronic back pain Confirmed Active Depression Confirmed Active Dermoid cyst of ovary Confirmed Active Fatigue Confirmed Active Fibromyalgia Confirmed Active Hyperparathyroidism Confirmed Active HTN (hypertension) Confirmed Active Hypothyroidism Confirmed Active Migraine Confirmed Active Mixed anxiety and depressive disorder Confirmed Active Myalgia of pelvic floor Confirmed Active Pituitary microprolactinoma Confirmed Active Nocturia Confirmed Active Obese class I Confirmed Active History of seizures Confirmed Active Sickle cell trait Confirmed Active Type 2 diabetes mellitus without complication Confirmed Active Social History Social History Type Response Smoking Status Former smoker; Other : Quit 2007; entered on: 10/12/15 Sex Sex Representation Female (finding) Patient Care team information Care Team Personnel Name: Rain Robertson Position: [facility] Onco RN Member Role: Primary Care Nurse Name: Trudy Cristina RN Position: [facility] SN RN Member Role: Primary Care Nurse Name: Rolando Bryson RN Position: S RN Member Role: Primary Care Nurse Name: Arleen Benitez RN Position: S RN Member Role: Primary Care Nurse Name: Nahomy Clement NP Position: [facility] PCO Associate Professional Member Role: Primary Care Nurse Address: [address] [place] [address] Telecom: Name: Selina Gaytan RN Position: [facility] RN Member Role: Primary Care Nurse Name: Jeanna Estevez RN Position: [facility] RN Member Role: Primary Care Nurse Name: Frida Young RN Position: [facility] RN Member Role: Primary Care Nurse Name: Kamilla Lino RN Position: [facility] Onco RN Member Role: Primary Care Nurse Name: Donny Knox RN Position: [facility] Hospital Cabbage Salter Member Role: Primary Care Nurse Name: Gabby More RN Position: [facility] RN Member Role: Primary Care Nurse Name: Kayley Gross RN Position: [facility] AMB Nurse Member Role: Primary Care Nurse Name: Gabbie Cisneros MD Position: [facility] Outreach Member Role: PCP Address: [address] [place] [address] Telecom: Name: Kristina Miller RN Position: [facility] RN Member Role: Primary Care Nurse Name: Angi Ugalde RN Position: [facility] SN RN Member Role: Primary Care Nurse Name: Shadia Santana RN Position: [facility] RN Member Role: Primary Care Nurse Care Team Related Persons Name: FLORES HERRMANN Name: KAYE PHELPS Insurance Providers Guarantor name: [facility] Plan Information #: 1 [facility] Member Number: NA Policy Number: NA Group Number: NA
--- OUTSIDE RECORDS SUMMARY | 2024-07-31 12:41 | XMS_ITS | Continuity of Care Document ---
Author Organization Formerly [facility]. If a dditional information is needed, contact Health Information Management at [phone] [phone] [place] [address] Phone Care Team Providers Care Product Craftsman Name Role Phone Unavailable Unavailable Unavailable Unavailable Unavailable Unavailable Unavailable Unavailable Unavailable Unavailable Unavailable Unavailable Unavailable Unavailable Unavailable Unavailable Unavailable Unavailable Unavailable Unavailable Unavailable Unavailable Unavailable Unavailable Unavailable Unavailable Unavailable Unavailable Unavailable Unavailable Unavailable Unavailable Unavailable Unavailable Unavailable Unavailable Unavailable Unavailable Unavailable Unavailable Unavailable Unavailable Unavailable Unavailable Unavailable Unavailable Unavailable Unavailable Unavailable Unavailable Unavailable Unavailable Unavailable Unavailable Unavailable Unavailable Unavailable Unavailable Unavailable Unavailable Unavailable Unavailable Unavailable Note Jack Pitts CHIEF OF HOSPITAL MEDICINE-- Jul-2023 ? ? ? [facility] ([facility])Neurology Progress NoteREPORT #: [id number] REPORT STATUS: SignedDATE: 08/13/23 TIME: 1639PATIENT: FLORES AHN UNIT #: [id number] #: [id number] ROOM #: 3324 BED: 1DOB: [birth year] AGE: 52 SEX: F ATTEND: Gurinder Cardoso MDADM AUTHOR: Hong Riojas CHIEF OF HOSPITAL MEDICINEATTENTIONEDIT S and/or ADDENDA must be made in Patient Keeper for this note. Edits and ammendments created in [employer] are not visible in Patient Keeper or the legal medical record (HPF). Note Date: 08/13/23 16:39-- ASSESSMENT AND PLAN --GENERAL ASSESSMENT:55 YO F with epilepsy, chronic migraines, unspecified mood d/o presents forseizure. Terminated by EMS with IV Benzos. Follows epileptologist in [place] whoper patient reportedly thinks PNES may be playing a role in her more frequentseizures and is scheduled for EMU evaluation in [place] first week of August.Son/Patient reports she has had multiple CT / MRI over the past year and refuseany further imaging this hospitalization. 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-Would benefit from EMU as reportedly scheduled-Check CPK given reported duration of ihppysr63/23/23Feels at baselineCBC w/ leukopenia, will have to reconsider carbamazepine if stays soOtherwise bloodwork unremarkable including CPK 79 which calls into questionif a true GTC SZ lasting +10 min x 2, on the other hand the descriptionprovided by her son of the event before coming to the hospital was verysuggestive of a true SZ event: L leg hyperextended, then forced internalrotation of L arm, then L facial spasm, eyes rolled to the back, then startedhaving tonic-clonic movements.She is very eager to leave as she says she came only for a few days to [place], if SZ-free by tomorrow we will let her go but willhave to f/u w/ her neurologist JANICE.08/13/23Denies any new complaints/symptoms, no overnight events, neuroexam unchanged.Continue CBZ and TPM at current doses, noted leukopenia, has to follow w/primary neurologist JANICE, there is an EMU evaluation pending per themEEG is pending report but no need to wait for this as clearly not seizing andwe already increased the AED doseWe discussed that if further SZ activity must come back to the hospital Neurology signs off. (please call back with questions, thank you)ASSESSMENT / PLAN:1: SeizureADDITIONAL COMMENTS:Thank you very much for this consult, will sign off at this time. Pleasecontact us if there are any questions.I have: reviewed the history and repeated the chow elements, seen and examinedthis patient, reviewed the progress in the clinical course since the lastexamination, and discussed the patient's condition with other members of thecare team.All questions asked by patient and family were answered at this time on thebasis of currently available information. History, physical exam, labs, chartcheck, images, and plan of care all reviewed and agreed by attending physician.-- NEURO EXAM --NEURO EXAM:Mental Status: Affect, Memory, Attention Span, Concentration, and Fund ofInformation - normal. Oriented to person, place, and time. Language: intactnaming, repetition, comprehension, reading and writing.Speech: No dysarthria, no aphasia, no speech apraxiaCN 2: no papilledema, no exudates or hemorrhages, symmetric visual salinas.CN 3, 4, 6: EOM limited by cooperation but no deficits noted. Pupils equallyreactive to light.CN 5: symmetric facial sensation, intact corneal reflex.CN 7: symmetric facial expression, no nasolabial fold flattening.CN 8: grossly intact hearing to finger rubCN 9, 10: symmetric palate elevation, gag reflex present.CN 11: trapezius 5/5 symmetric, sternocleidomastoid 5/5 symmetric.CN 12: no fasciculations, no tongue deviation.Motor: No atrophy, rigidity or spasticity. Normal bulk.Strength: Limited by cooperation. No effort for LLE. Reports this is normal for her postictal state.Reflexes: Reflexes: Bic Tric Br KJ AJ Plantar Left 2 2 2 2 2 flexor Right 2 2 22 2 flexorSensation: No deficit in vibration, soft touch or pin-prick sensation orproprioception.Cerebellar: intact finger to nose, not cooperative with further testing at 1825 at 1825ATTENTIONEDIT S and/or ADDENDA must be made in Patient Keeper for this note. Edits and ammendments created in [employer]See are not visible in Patient Keeper or the legal medical record (HPF). [facility] #: [id number] OF REPORT Jack Pitts APRN-Jul-2023 ? ? ? [facility] ([facility])Neurology Progress NoteREPORT #: [id number] REPORT STATUS: SignedDATE: 08/12/23 TIME: 1724PATIENT: FLORES AHN UNIT #: [id number] #: [id number] ROOM #: 3324 BED: 1DOB: [birth year] AGE: 52 SEX: F ATTEND: Anton Walden AUTHOR: Hong Riojas APRNATTENTIONEDIT S and/or ADDENDA must be made in Patient Keeper for this note. Edits and ammendments created in [employer]See are not visible in Patient Keeper or the legal medical record (HPF). Note Date: 08/12/23 17:25-- ASSESSMENT AND PLAN --GENERAL ASSESSMENT:55 YO F with epilepsy, chronic migraines, unspecified mood d/o presents forseizure. Terminated by EMS with IV Benzos. Follows epileptologist in [place] whoper patient reportedly thinks PNES may be playing a role in her more frequentseizures and is scheduled for EMU evaluation in [place] first week of August.Son/Patient reports she has had multiple CT / MRI over the past year and refuseany further imaging this hospitalization. 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-Would benefit from EMU as reportedly scheduled-Check CPK given reported duration of ibrrhou05/23/23Feels at baselineCBC w/ leukopenia, will have to reconsider carbamazepine if stays soOtherwise bloodwork unremarkable including CPK 79 which calls into questionif a true GTC SZ lasting +10 min x 2, on the other hand the descriptionprovided by her son of the event before coming to the hospital was verysuggestive of a true SZ event: L leg hyperextended, then forced internalrotation of L arm, then L facial spasm, eyes rolled to the back, then startedhaving tonic-clonic movements.She is very eager to leave as she says she came only for a few days to be w/her grandkids on , if SZ-free by tomorrow we will let her go but willhave to f/u w/ her neurologist JANICE.Continue CBZ and TPM at current doses, noted leukopeniaEEG is pendingWill followASSESSMENT / PLAN:1: SeizureADDITIONAL COMMENTS:I have: reviewed the history and repeated the chow elements, seen and examinedthis patient, reviewed the progress in the clinical course since the lastexamination, and discussed the patient's condition with other members of thecare team.All questions asked by patient and family were answered at this time on thebasis of currently available information. History, physical exam, labs, chartcheck, images, and plan of care all reviewed and agreed by attending physician.-- EXAM --VITALS (08/11 17:25 - 08/12 17:25):Pulse: 67 (53 - 69) Respiratory rate: 18 (16 - 18) Temperature C: 36.5(35.9 - 36.8) Blood pressure: 108/71 (104/68 - 126/76) SPO2 %: 100 (97 -100)-- NEURO EXAM --NEURO EXAM:Mental Status: Affect, Memory, Attention Span, Concentration, and Fund ofInformation - normal. Oriented to person, place, and time. Language: intactnaming, repetition, comprehension, reading and writing.Speech: No dysarthria, no aphasia, no speech apraxiaCN 2: no papilledema, no exudates or hemorrhages, symmetric visual salinas.CN 3, 4, 6: EOM limited by cooperation but no deficits noted. Pupils equallyreactive to light.CN 5: symmetric facial sensation, intact corneal reflex.CN 7: symmetric facial expression, no nasolabial fold flattening.CN 8: grossly intact hearing to finger rubCN 9, 10: symmetric palate elevation, gag reflex present.CN 11: trapezius 5/5 symmetric, sternocleidomastoid 5/5 symmetric.CN 12: no fasciculations, no tongue deviation.Motor: No atrophy, rigidity or spasticity. Normal bulk.Strength: Limited by cooperation. No effort for LLE. Reports this is normal for her postictal state.Reflexes: Reflexes: Bic Tric Br KJ AJ Plantar Left 2 2 2 2 2 flexor Right 2 2 22 2 flexorSensation: No deficit in vibration, soft touch or pin-prick sensation orproprioception.Cerebellar: intact finger to nose, not cooperative with further testing-- DATA --MEDICATIONShaloperidoL 4 MG PO BEDTIMEhaloperidoL 2 MG PO DAILY@10hydrOXYzine HCL 25 MG PO BEDTIMEMAGNESIUM OXIDE 400 MG PO DAILY@10ENOXAPARIN SODIUM 40 MG SUBQ DAILY@0600HYDRALAZINE HCL 10 MG IV Q6H (PRN)MUPIROCIN 1 APPLIC NASAL BID 10VERAPAMIL HCL 120 MG PO DAILYondansetron HCL 4 MG IV Q6H (PRN)FERROUS SULFATE 325 MG PO DAILYTOPIRAMATE 150 MG PO DAILYcarBAMazepine 400 MG PO [id number] SODIUM 10 MG PO BEDTIMEPANTOPRAZOLE 40 MG PO DAILY@0600ACETAMINOPHEN 650 MG PO Q6H PRNSERTRALINE HCL 100 MG PO DAILYLORazepam 2 MG IV Q2H (PRN)AMITRIPTYLINE HCL 40 MG PO BIDTOPIRAMATE 100 MG PO BEDTIMEATORVASTATIN CALCIUM 10 MG PO BEDTIMEASPIRIN 81 MG PO DAILY@10LORazepam 1 MG IV ONCE (PRN)LAB RESULTSDRUG SCREEN, URINE (08/12/23 05:23)BENZODIAZEPINE Positive ACOCAINE METABOLITE NegativeAMPH/METHAMPH UR NegativeBARBITURATE NegativePHENCYCLIDINE NegativeOPIATE NegativeCANNABINOIDS NegativeURINALYSIS WITH CULT REFLX (08/12/23 05:56)URINE GLUCOSE NegativeURINE PROTEIN 30 HURINE BLOOD NegativeURINE KETONE NegativeURINE CLARITY Slightly-Cloudy HURINE COLOR YellowURINE pH 7.0URINE SPECIFIC GRAVITY 1.013URINE UROBILINOGEN NegativeURINE BILIRUBIN NegativeURINE NITRITE NegativeURINE HYALINE CAST 0-5 HURINE SQUAMOUS EPITHELIAL CELL 0-5URINE MUCOUS Rare HURINE BACTERIA Rare HURINE MICROSCOPIC? YesURINE LEUKOCYTES Small HURINE RED BLOOD CELL 0-5URINE WHITE BLOOD CELL 0-5MICROSCOPIC (08/12/23 05:56)URINE BACTERIA Rare HURINE RED BLOOD CELL 0-5URINE WHITE BLOOD CELL 0-5COMPLETE BLOOD COUNT (08/12/23 06:06)MCH 31.5MCHC 33.7HEMATOCRIT 34.1MCV 93.4MPV 10.0RBC DISTRIBUTION WIDTH 12.6PLATELET COUNT 217RED BLOOD CELL COUNT 3.65 LHEMOGLOBIN 11.5WHITE BLOOD CELL COUNT 3.3L LBASIC METABOLIC PANEL (08/12/23 06:06)CARBON DIOXIDE (CO2) 25ANION GAP 7.0POTASSIUM 3.9CHLORIDE 106UREA-N (BUN) 13CREATININE 0.69GLUCOSE 89CALCIUM 8.5eGFR > 90SODIUM 138GLUC MONITORING (08/12/23 07:21)GLUCOSE BY MONITORING DEVICE 87GLUC MONITORING (08/12/23 11:44)GLUCOSE BY MONITORING DEVICE 117 HGLUC MONITORING (08/12/23 16:31)GLUCOSE BY MONITORING DEVICE 90 at 2219 at 2219ATTENTIONEDIT S and/or ADDENDA must be made in Patient Keeper for this note. Edits and ammendments created in [employer]See are not visible in Patient Keeper or the legal medical record (HPF). RPT #: [id number] OF REPORT Win Walton MD-12-Aug-2023 ? ? ? [facility] ([facility])Hospitalist Progress NoteREPORT #: [id number] REPORT STATUS: SignedDATE: 08/12/23 TIME: 1410PATIENT: FLORES AHN UNIT #: [id number] #: [id number] ROOM #: 3324 BED: 1DOB: [birth year] AGE: 52 SEX: F ATTEND: Anton Walden AUTHOR: Anton Walden MDATTENTIONEDITS and/or ADDENDA must be made in Patient Keeper for this note. Edits and ammendments created in [employer]See are not visible in Patient Keeper or the legal medical record (HPF). Note Date: 08/12/23 14:10-- ASSESSMENT/PLAN --GENERAL ASSESSMENT:#Breakthrough Seizures - Family refusing CT or MRI imaging.- Monitor on telemetry.- Phos. TSH, UDS, CPK.- Tegretol level.- Neuro checks q4h.- Seizure, fall, aspiration precautions.- NPO.- IVF.- Ativan 1mg PRN for acute seizure activity.- Neurology consult.- Restart home Tegretol XR 400 mg BID, topiramate 100 mg daily.#Hypertension -- Continue home verapamil 120 mg daily.- IV antihypertensive PRN#Hyperlipidemia -- Continue home atorvastatin 10 mg daily.#Pituitary Gland Tumor -- On Cabergoline 0.5 mg tablets; 2 tablets twice weekly on Monday and mo.#Fluids, Electrolytes, Nutrition: NPO. LR @ 75 cc/hr.#DVT/VTE prophylaxis: SCDs.#CODE STATUS: Full Code.Disposition: Follow-up EEG and Neurology recommendations.-- SUBJECTIVE --PATIENT NARRATIVE:No acute overnight events, seizure activity yesterday afternoon. No newcomplaints.REVIEW OF SYSTEMS:General Negative for fever, malaise, fatigue.Respiratory Negative for dyspnea or wheeze. No cough.Cardiovascular Negative for chest pain or palpitations. No extremity swelling.Gastrointestinal Negative for abdominal pain or nausea. No emesis. No diarrhea.-- EXAM --VITALS (08/11 14:10 - 08/12 14:10):Pulse: 53 (53 - 69) SPO2 %: 98 (97 - 99) Temperature C: 36.4 (35.9 - 36.8) Blood pressure: 107/71 (102/68 - 126/76) Respiratory rate: 18 (16 - 18)EXAM:Other General: Somnolent. Rouses to verbal stimuli. Appears post-ictal.Well-appearing. Well-nourished. In no acute cardiopulmonary distress.HEENT: Normocephalic.Neck: Supple. Full range of motion.Respiratory: Clear to auscultation. No wheezing, rales, or rhonchi.Cardiovascular: Heart sounds normal. Regular rate and rhythm. No murmurs, rubs,or gallops.Gastrointestinal: Abdomen soft, non-tender, non-distended. Normoactive bowelsounds. No pulsatile masses.Genitourinary: No Marie.Neurologic: No focal neurological deficits. Moving all 4 extremities. Doesappear drowsy and post-ictal.Skin: No rashes or lesions. Good turgor. No petechiae or purpura. No openwounds or ulcers.Extremities: No cyanosis or clubbing. No gross deformities. Normal range ofmotion. No edema. Left upper and lower extremity weakness.-- DATA --MEDICATIONShaloperidoL 4 MG PO BEDTIMEhaloperidoL 2 MG PO DAILY@10hydrOXYzine HCL 25 MG PO BEDTIMEMAGNESIUM OXIDE 400 MG PO DAILY@10ENOXAPARIN SODIUM 40 MG SUBQ DAILY@0600HYDRALAZINE HCL 10 MG IV Q6H (PRN)MUPIROCIN 1 APPLIC NASAL BID 10VERAPAMIL HCL 120 MG PO DAILYondansetron HCL 4 MG IV Q6H (PRN)FERROUS SULFATE 325 MG PO DAILYTOPIRAMATE 150 MG PO DAILYcarBAMazepine 400 MG PO [id number] RINGERS SOLUTION 1000 ML IV ASDIRMONTELUKAST SODIUM 10 MG PO BEDTIMEPANTOPRAZOLE 40 MG PO DAILY@0600ACETAMINOPHEN 650 MG PO Q6H PRNSERTRALINE HCL 100 MG PO DAILYLORazepam 2 MG IV Q2H (PRN)AMITRIPTYLINE HCL 40 MG PO BIDTOPIRAMATE 100 MG PO BEDTIMEATORVASTATIN CALCIUM 10 MG PO BEDTIMEASPIRIN 81 MG PO DAILY@10LORazepam 1 MG IV ONCE (PRN)LAB RESULTSDRUG SCREEN, URINE (08/12/23 05:23)BENZODIAZEPINE Positive ACOCAINE METABOLITE NegativeAMPH/METHAMPH UR NegativeBARBITURATE NegativePHENCYCLIDINE NegativeOPIATE NegativeCANNABINOIDS NegativeURINALYSIS WITH CULT REFLX (08/12/23 05:56)URINE GLUCOSE NegativeURINE PROTEIN 30 HURINE BLOOD NegativeURINE KETONE NegativeURINE CLARITY Slightly-Cloudy HURINE COLOR YellowURINE pH 7.0URINE SPECIFIC GRAVITY 1.013URINE UROBILINOGEN NegativeURINE BILIRUBIN NegativeURINE NITRITE NegativeURINE HYALINE CAST 0-5 HURINE SQUAMOUS EPITHELIAL CELL 0-5URINE MUCOUS Rare HURINE BACTERIA Rare HURINE MICROSCOPIC? YesURINE LEUKOCYTES Small HURINE RED BLOOD CELL 0-5URINE WHITE BLOOD CELL 0-5MICROSCOPIC (08/12/23 05:56)URINE BACTERIA Rare HURINE RED BLOOD CELL 0-5URINE WHITE BLOOD CELL 0-5COMPLETE BLOOD COUNT (08/12/23 06:06)MCH 31.5MCHC 33.7HEMATOCRIT 34.1MCV 93.4MPV 10.0RBC DISTRIBUTION WIDTH 12.6PLATELET COUNT 217RED BLOOD CELL COUNT 3.65 LHEMOGLOBIN 11.5WHITE BLOOD CELL COUNT 3.3L LBASIC METABOLIC PANEL (08/12/23 06:06)CARBON DIOXIDE (CO2) 25ANION GAP 7.0POTASSIUM 3.9CHLORIDE 106UREA-N (BUN) 13CREATININE 0.69GLUCOSE 89CALCIUM 8.5eGFR > 90SODIUM 138GLUC MONITORING (08/12/23 07:21)GLUCOSE BY MONITORING DEVICE 87GLUC MONITORING (08/12/23 11:44)GLUCOSE BY MONITORING DEVICE 117 HADDITIONAL COMMENTS:I attest the foregoing medication list in the medical records is true andcomplete to the best of my knowledgeprior medical records, EKG available, imaging studies reviewed if applicablediscussed health care decision making/advanced directives with patient and/orfamily-- ATTESTATION --Time Spent on Patient CareDIRECTCOUNSELINGCOORDINATION OF CARE> 50% of time spent on counseling/care coordinationCare Activities / Care CoordinationI have reviewed the history and repeated the chow elementsI have seen and examined this patientI have reviewed the progress in the clinical course since the last examinationI have discussed the patient's condition with other members of the care team at 1411ATTENTIONEDIT S and/or ADDENDA must be made in Patient Keeper for this note. Edits and ammendments created in [facility] are not visible in Patient Keeper or the legal medical record (HPF). [facility] #: [id number] OF REPORT Win Walton MD-22-Jul-2023 ? ? ? [facility] ([facility])Hospitalist Progress NoteREPORT #: [id number] REPORT STATUS: SignedDATE: 08/11/23 TIME: 1344PATIENT: FLORES AHN UNIT #: [id number] #: [id number] ROOM #: [facility] BED: 56DOB: [birth year] AGE: 52 SEX: F ATTEND: Anton Walden MDABISI AUTHOR: Anton Walden MDATTENTIONEDITS and/or ADDENDA must be made in Patient Keeper for this note. Edits and ammendments created in [employer]See are not visible in Patient Keeper or the legal medical record ([facility]). Note Date: 08/11/23 13:44-- ASSESSMENT/PLAN --GENERAL ASSESSMENT:#Breakthrough Seizures - Family refusing CT or MRI imaging.- Monitor on telemetry.- Phos. TSH, UDS, CPK.- Tegretol level.- Neuro checks q4h.- Seizure, fall, aspiration precautions.- NPO.- IVF.- Ativan 1mg PRN for acute seizure activity.- Neurology consult.- Restart home Tegretol XR 400 mg BID, topiramate 100 mg daily.#Hypertension -- Continue home verapamil 120 mg daily.- IV antihypertensive PRN#Hyperlipidemia -- Continue home atorvastatin 10 mg daily.#Pituitary Gland Tumor -- On Cabergoline 0.5 mg tablets; 2 tablets twice weekly on Monday and .#Fluids, Electrolytes, Nutrition: NPO. LR @ 75 cc/hr.#DVT/VTE prophylaxis: SCDs.#CODE STATUS: Full Code.Disposition: Await Neurology recommendations.-- SUBJECTIVE --PATIENT NARRATIVE:No acute overnight events.REVIEW OF SYSTEMS:General Negative for fever, malaise, fatigue.Respiratory Negative for dyspnea or wheeze. No cough.Cardiovascular Negative for chest pain or palpitations. No extremity swelling.Gastrointestinal Negative for abdominal pain or nausea. No emesis. No diarrhea.-- EXAM --VITALS (08/10 13:44 - 08/11 13:44):Respiratory rate: 16 (16 - 19) Blood pressure: 110/81 (97/62 - 115/81) SPO2%: 100 (98 - 100) Temperature C: 36.4 (36.4 - 36.6) Pulse: 55 (55 - 72)EXAM:Other General: Somnolent. Rouses to verbal stimuli. Appears post-ictal.Well-appearing. Well-nourished. In no acute cardiopulmonary distress.HEENT: Normocephalic.Neck: Supple. Full range of motion.Respiratory: Clear to auscultation. No wheezing, rales, or rhonchi.Cardiovascular: Heart sounds normal. Regular rate and rhythm. No murmurs, rubs,or gallops.Gastrointestinal: Abdomen soft, non-tender, non-distended. Normoactive bowelsounds. No pulsatile masses.Genitourinary: No Marie.Neurologic: No focal neurological deficits. Moving all 4 extremities. Doesappear drowsy and post-ictal.Skin: No rashes or lesions. Good turgor. No petechiae or purpura. No openwounds or ulcers.Extremities: No cyanosis or clubbing. No gross deformities. Normal range ofmotion. No edema. Left upper and lower extremity weakness.-- DATA --MEDICATIONShaloperidoL 4 MG PO BEDTIMEhaloperidoL 2 MG PO DAILY@10hydrOXYzine HCL 25 MG PO BEDTIMEMAGNESIUM OXIDE 400 MG PO DAILY@10ENOXAPARIN SODIUM 40 MG SUBQ DAILY@0600HYDRALAZINE HCL 10 MG IV Q6H (PRN)MUPIROCIN 1 APPLIC NASAL BID 10VERAPAMIL HCL 120 MG PO DAILYondansetron HCL 4 MG IV Q6H (PRN)FERROUS SULFATE 325 MG PO DAILYTOPIRAMATE 150 MG PO DAILY(DC'd) TOPIRAMATE 100 MG PO BEDTIMEcarBAMazepine 400 MG PO [id number] RINGERS SOLUTION 1000 ML IV ASDIRMONTELUKAST SODIUM 10 MG PO BEDTIMEPANTOPRAZOLE 40 MG PO DAILY@0600SERTRALINE HCL 100 MG PO DAILYATORVASTATIN CALCIUM 10 MG PO BEDTIMEASPIRIN 81 MG PO DAILY@10LORazepam 1 MG IV ONCE (PRN)LAB RESULTSGLUC MONITORING (08/11/23 09:37)GLUCOSE BY MONITORING DEVICE 157 HCBC WITH DIFFERENTIAL (08/11/23 10:52)MONOCYTE 9.1NUCLEATED RBC # 0.00EOSINOPHIL 6.2 HBASOPHIL 1.1SEGMENTED NEUTROPHIL 44.7IMMATURE GRANULOCYTES # 0.00LYMPHOCYTE 38.9NUCLEATED RBC 0.0WHITE BLOOD CELL COUNT 2.8L LRED BLOOD CELL COUNT 3.54 LHEMOGLOBIN 11.4HEMATOCRIT 32.4L LIMMATURE GRANULOCYTES 0.0NEUTROPHIL ABSOLUTE # 1.23 LLYMPHOCYTE ABS # 1.07 LMONOCYTE ABS # 0.25PLATELET COUNT 222EOSINOPHIL ABS # 0.17MPV 9.6BASOPHIL ABS # 0.03MCV 91.5MCH 32.2MCHC 35.2RBC DISTRIBUTION WIDTH 12.6TSH Reflex FT4 (08/11/23 10:52)TSH c Reflex FT4 1.740CPK (08/11/23 10:52)CK (CPK) 74COMPLETE METABOLIC PANEL (08/11/23 10:52)CALCIUM 8.5Corrected Calcium 8.6ANION GAP 9.0GLUCOSE 89ALBUMIN 3.9TOTAL PROTEIN 7.1CREATININE 0.54eGFR > 90ALT/SGPT 44UREA-N (BUN) 11CHLORIDE 104CARBON DIOXIDE (CO2) 26SODIUM 139POTASSIUM 4.1ALKALINE PHOSPHATASE 66AST/SGOT 38TOTAL BILIRUBIN 0.2PHOS (08/11/23 10:52)PHOSPHATE (PHOSPHORUS) 4.0CPK (08/11/23 10:53)CK (CPK) 79ADDITIONAL COMMENTS:I attest the foregoing medication list in the medical records is true andcomplete to the best of my knowledgeprior medical records, EKG available, imaging studies reviewed if applicablediscussed health care decision making/advanced directives with patient and/orfamily-- ATTESTATION --Time Spent on Patient CareDIRECTCOUNSELINGCOORDINATION OF CARE> 50% of time spent on counseling/care coordinationCare Activities / Care CoordinationI have reviewed the history and repeated the chow elementsI have seen and examined this patientI have reviewed the progress in the clinical course since the last examinationI have discussed the patient's condition with other members of the care team at 1345ATTENTIONEDIT S and/or ADDENDA must be made in Patient Keeper for this note. Edits and ammendments created in [facility] are not visible in Patient Keeper or the legal medical record ([facility]). RPT #: [id number] OF REPORT Domenic Alexandra MD- 023 ? ? ? [facility] ([facility])Neurology ConsultationREPORT #: [id number] REPORT STATUS: SignedDATE: 08/11/23 TIME: 1012PATIENT: FLORES AHN UNIT #: [id number] #: [id number] ROOM #: [facility] BED: 56DOB: [birth year] AGE: 52 SEX: F ATTEND: Anton Walden MDADM AUTHOR: Lul Sheth MD R3ATTENTIONEDITS and/or ADDENDA must be made in Patient Keeper for this note. Edits and ammendments created in [facility] are not visible in Patient Keeper or the legal medical record ([facility]). Attendin g: Florinda Baer MD 08/11/23 16:26I have seen the patient with Lul Sheth MD R3, and agree with plan asdescribed in the note. Bloodwork, images and tests reviewed.Note Date: 08/11/23 10:12-- ASSESSMENT AND PLAN --GENERAL ASSESSMENT:55 YO F with epilepsy, chronic migraines, unspecified mood d/o presents forseizure. Terminated by EMS with IV Benzos. Follows epileptologist in [place] whoper patient reportedly thinks PNES may be playing a role in her more frequentseizures and is scheduled for EMU evaluation in [place] first week of August.Son/Patient reports she has had multiple CT / MRI over the past year and refuseany further imaging this hospitalization. 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 Per son, the seizure last 10-20 minutes, during which she wasunresponsive, tonic-clonic. It was terminated by EMS with benzos. She had asecond seizure that was also terminated with benzo. [place].She has a well-established seizure d/o [facility] She is currently taking Tegretol and Topiramate. Her son herreports her seizure have been worsening over the past 6 months. Herepilieptologist reportedly thinks PNES may be playing a role in her morefrequent seizures and is being scheduled for EMU evaluation in [place].At time of interview patient is somnolent but arousable, per her usualpost-ictal state can last up to 24H.She has no other complaints at this time.Son/Patient reports she has had multiple CT / MRI over the past year and refuseany further imaging this hospitalization.PAST MEDICAL HISTORY:epilepsy, arthritis, pituitary tumor, hypertension, asthma, prediabetes,depression, migrainePAST SURGICAL HISTORY:4 C-sections, laser eye surgery, tonsillectomy, gastric band, tummy tuckSocial HistoryTobacco UseDETAILS/COMMENTS:deniesAlcohol UseDETAILS/COMMENTS:deniesDrug UseDETAILS/COMMENTS:deniesLIVING SITUATION:lives in [place]-- SUBJECTIVE --REVIEW OF SYSTEMS:Comment: 12-point ROS negative except per HPI-- EXAM --EXAM:General: somnolent but arousable, partially cooperative on examHead: Normocephalic, atraumatic.Mouth: MMMLungs: Breathing comfortably on RAHeart: RRRExtremities: No cyanosis, edema-- NEURO EXAM --NEURO EXAM:Mental Status: Affect, Memory, Attention Span, Concentration, and Fund ofInformation - normal. Oriented to person, place, and time. Language: intactnaming, repetition, comprehension, reading and writing.Speech: No dysarthria, no aphasia, no speech apraxiaCN 2: no papilledema, no exudates or hemorrhages, symmetric visual salinas.CN 3, 4, 6: EOM limited by cooperation but no deficits noted. Pupils equallyreactive to light.CN 5: symmetric facial sensation, intact corneal reflex.CN 7: symmetric facial expression, no nasolabial fold flattening.CN 8: grossly intact hearing to finger rubCN 9, 10: symmetric palate elevation, gag reflex present.CN 11: trapezius 5/5 symmetric, sternocleidomastoid 5/5 symmetric.CN 12: no fasciculations, no tongue deviation.Motor: No atrophy, rigidity or spasticity. Normal bulk.Strength: Limited by cooperation. No effort for LLE. Reports this is normal for her postictal state.Reflexes: Reflexes: Bic Tric Br KJ AJ Plantar Left 2 2 2 2 2 flexor Right 2 22 2 2 flexorSensation: No deficit in vibration, soft touch or pin-prick sensation orproprioception.Cerebellar intact finger to nose, not cooperative with further testing at 1626 at 1626ATTENTIONEDIT S and/or ADDENDA must be made in Patient Keeper for this note. Edits and ammendments created in ForeSee are not visible in Patient Keeper or the legal medical record ([facility]). [facility] #: [id number] OF REPORT Parish Daniels DO- 3 ? ? ? [facility] ([facility])Hospitalist PREPORT #: [id number] REPORT STATUS: SignedDATE: 08/11/23 TIME: 0118PATIENT: ANABELLEFLORES UNIT #: [id number] #: [id number] ROOM #: [facility] BED: 31DOB: [birth year] AGE: 52 SEX: F ATTEND: Joanne Lugo DOADM AUTHOR: Joanne Lugo DOATTENTIONEDITS and/or ADDENDA must be made in Patient Keeper for this note. Edits and ammendments created in ForeSee are not visible in Patient Keeper or the legal medical record (HPF). Note Date: 08/11/23 01:18-- HISTORY --[facility] provider:UNKNOWN, DoesHPI: 52-year-old female with history of epilepsy, arthritis, pituitary tumor,hypertension, asthma, prediabetes, depression, migraine. Patient has alongstanding history of epilepsy with frequent seizures. [place] and son-in-law on [place]. She hada significant amount of seizures today. Family called EMS. Patient was given10 mg Versed by EMS but was still having seizure activity. In the ED, patientwas given Keppra. No further seizure activity but patient remains postictal.History primarily obtained from son-in-law at bedside who has a detailed listof patient's medical history. Patient has regular follow-up and her own neurologist back in [place].She is compliant with her medications. However, there was significantstressors 6 months ago and her seizures have been getting worse. She hasapparently been having seizures approximately every week. Per family, mercedhaailyn had significant workup with her own physicians in [place]. They havestrictly stated no more CT or MRIs of the brain. Family also reports that sheis not to received any Keppra as she has a history of adverse reaction ofpsychosis with Keppra. Patient did not have any issues with the Keppra givenin the ED. Patient was also recently found to have 2 spots on the lung and is currentlyscheduled for a biopsy back in [place]. Patient is somnolent and drowsy but does awaken to verbal stimuli. Shedenies any pain or discomfort. States that she wants to go home. Immediatelyfalls back asleep.PAST MEDICAL HISTORY:epilepsy, arthritis, pituitary tumor, hypertension, asthma, prediabetes,depression, migrainePAST SURGICAL HISTORY:4 C-sections, laser eye surgery, tonsillectomy, gastric band, tummy tuckSocial HistoryTobacco use:DETAILS/COMMENTS:deniesAlcohol use:DETAILS/COMMENTS:deniesDrug use:DETAILS/COMMENTS:deniesLIVING SITUATION:lives in [place]-- ALLERGIES/HOME MEDS --Modifications made in this section do not update Allergy and Home MedicationListALLERGIES - iodine ( Unknown - Allergy )HOME MEDICATIONS COMMENTS: aspirin 81 mg dailyAtorvastatin 10 mg dailyCalcium 600 mg-vitamin D3 10 mcg twice dailyCetirizine 10 mg daily as neededEast omeprazole 20 mg dailyFerrous sulfate 325 mg dailyHaloperidol 2 mg, 1 tablet in the morning and 2 tablets at bedtimeHydroxyzine 25 mg at bedtimeMagnesium oxide 400 mg at bedtimeMontelukast 10 mg at bedtimeSertraline 100 mg dailyTegretol XR 400 mg twice dailyVerapamil 120 mg ER at bedtimeCabergoline 0.5 mg tablets, 2 tablets twice a week on Monday and Topiramate 100 mg dailyphentermine 37.5 mg daily-- SUBJECTIVE --UNABLE TO OBTAIN REVIEW OF SYSTEMS-- EXAM --VITALS (08/10 01:18 - 08/11 01:18):Respiratory rate: 19 (17 - 19) Pulse: 62 (62 - 72) SPO2 %: 100 (98 - 100)Blood pressure: 112/76 (112/76 - 115) Temperature C: 36.6EXAM:Other: General: Somnolent. Rouses to verbal stimuli. Appears post-ictal.Well-appearing. Well-nourished. In no acute cardiopulmonary distress.HEENT: Normocephalic.Neck: Supple. Full range of motion.Respiratory: Clear to auscultation. No wheezing, rales, or rhonchi.Cardiovascular: Heart sounds normal. Regular rate and rhythm. No murmurs, rubs,or gallops.Gastrointestinal: Abdomen soft, non-tender, non-distended. Normoactive bowelsounds. No pulsatile masses.Genitourinary: No Marie.Neurologic: No focal neurological deficits. Moving all 4 extremities. Doesappear drowsy and post-ictal.Skin: No rashes or lesions. Good turgor. No petechiae or purpura. No openwounds or ulcers.Extremities: No cyanosis or clubbing. No gross deformities. Normal range ofmotion. No edema.-- ASSESSMENT/PLAN --GENERAL ASSESSMENT:#Breakthrough Seizures - Family refusing CT or MRI imaging.- Monitor on telemetry.- Phos. TSH, UDS, CPK.- Tegretol level.- Neuro checks q4h.- Seizure, fall, aspiration precautions.- NPO.- IVF.- Ativan 1mg PRN for acute seizure activity.- Neurology consult.- Restart home Tegretol XR 400 mg BID, topiramate 100 mg daily.#Hypertension -- Continue home verapamil 120 mg daily.- IV antihypertensive PRN#Hyperlipidemia -- Continue home atorvastatin 10 mg daily.#Pituitary Gland Tumor -- On Cabergoline 0.5 mg tablets; 2 tablets twice weekly on Monday and mo.#Fluids, Electrolytes, Nutrition: NPO. LR @ 75 cc/hr.#DVT/VTE prophylaxis: SCDs.#CODE STATUS: Full Code.A/P:ADDITIONAL COMMENTS:I attest that hospitalization is medically necessary due to concerns anddiagnoses listed above. Concern for worsening clinical picture without furthermanagement/observation under hospitalization.-- ATTESTATION --ADDITIONAL DETAIL:Time spent on reviewing current labs, imaging as well as prior medical history:20 minTime directly spent with patient obtaining history, performing physicalexamination and speaking with family (if applicable): 25 minTime spent ordering medications, tests, or procedures: 15 minTime spent referring and communicating with other medical records coordinator: 5 minTime spent on documentation: 10 minI have reviewed the history and repeated the chow elementsI have seen and examined this patientI have discussed the patient's condition with other members of the care team at 0448ATTENTIONEDIT S and/or ADDENDA must be made in Patient Keeper for this note. Edits and ammendments created in ForeSee are not visible in Patient Keeper or the legal medical record (HPF). RPT #: [id number] OF REPORT Mark Hernandez MD- 3 ? ? ? [facility] ([facility])EMERGENCY PROVIDER REPORTREPORT#:[id number] REPORT STATUS: SignedDATE:08/10/23 TIME: 2206PATIENT: FLORES AHN UNIT #: [id number]#: [id number] [facility] 52 SEX: F PCP PHYS: UNKNOWNSERVICE AUTHOR: Andrade Flores MDREP SRV DATE: 08/10/23 REP SRV TM: 2206* ALL edits or amendments must be made on the electronic/computer document *HPI-SeizureGeneralInitial Greet Date/Time 08/10/232204PresentationChief Complaint Seizure, generalizedFree Text HPI NotesFree Text HPI [id number] female presents via fire rescue with seizure. The patient has ahistory of seizures and isn't having seizures off and on all day. She isvisiting from out of town. Unclear what her regular medication is but she takesclonazepam sublingually for breakthrough seizures. Per EMS she was seizingactively for them with a generalized tonic-clonic seizure. She was given Versed5 mg on 2 occasions with some improvement in her seizure activity. On arrivalof the ER she was actively seizing with more of a focal seizure on the leftupper extremity. This seemed to extinguish spontaneously. She is going to beloaded with Keppra here.Review of SystemsROS StatementsUnable to Obtain ROS Patient conditionPast Medical History - AdultStated Complaint SEIZUREAllergiesCoded Allergies:iodine (UNKNOWN 08/10/23)Physical ExamVital SignsVital SignsFirst Documented: Result Date Time Pulse Ox 100 08/10 2217 Pulse 72 08/10 2217 Resp 19 08/10 2217 B/P 115/76 08/10 2225 B/P Mean 89 08/10 2225 Temp 36.6 08/10 2227Last Documented: Result Date Time Pulse Ox 100 08/11 120 B/P 97/62 08/11 120 B/P Mean 73 08/11 120 Pulse 58 08/11 120 Resp 18 08/11 120 Temp 36.6 08/10 2227Review of Vital Signs ReviewedBasic Physical ExamBasic PE HEAD: Atraumatic/NC, EYES: PERRL, conj clear, ENT: Membranes moist, ABD: Soft/non-tender, EXT: No gross abnormality, SKIN: No rashes, warm/dry, PSYCH:NL thought contentFocused PEGeneral/Const Alertness Sedated, Unresponsive.MS Neck Neck Atraumatic, Supple, No meningismus, Full range of motion, No adenopathy,No swelling, Non-tender, No midline vertebral tend, No masses, No crepitus, NoJVD, No carotid bruit, Thyroid NL, No tracheal deviationResp/Chest Respiratory/Chest Atraumatic, Breath sounds NL, Breath sounds = bilat, Norespiratory distress, No rales, No rhonchi, No wheezing, No retractions, Nostridor, No chest tenderness, No chest wall deformity, No crepitusCardiovascular Cardiovascular Heart rate NL, Regular rhythm, Heart sounds NL, No gallop, Nomurmurs, No rubs, Cap refill not delayed, Peripheral circulation NL, Pulses =bilaterally, No gross BP differentialNeurologic Text/Dict NotesInitially it appeared the patient was having focal seizure activity in her leftupper extremity and possibly left lower extremity. Patient is unresponsive.Interpretation DiagnosticsLab Results InterpretationResultsLaboratory Tests08/10/232217:[Embedded Image Not Available]Laboratory Tests: 08/10 Chemistry Sodium (135 - 145 mmol/L) 140 Potassium (3.5 - 5.2 mmol/L) 5.2 Chloride (95 - 110 mmol/L) 106 Carbon Dioxide (19 - 34 mmol/L) 26 Anion Gap (5 - 15 mmol/L) 8.0 BUN (6 - 22 mg/dL) 11 Creatinine (0.43 - 1.13 mg/dl) 0.63 Est GFR (CKD-EPI 2020) (>/=90) > 90 Glucose (70 - 110 mg/dL) 83 Calcium (8.4 - 10.2 mg/dL) 8.9 Corrected Calcium (8.4 - 10.2 mg/dl) 8.3 L Magnesium (1.6 - 2.4 mg/dL) 1.8 Total Bilirubin (0.1 - 1.2 mg/dL) 0.7 AST (10 - 40 Units/L) 77 H ALT (10 - 60 Units/L) 56 Total Alk Phosphatase (20 - 130 Units/L) 82 Total Protein (5.5 - 8.7 g/dL) 7.9 Albumin (3.2 - 5.0 g/dL) 4.0 Serum , Qual (NEGATIVE) NEGATIVE Coagulation PT (10.0 - 12.8 Seconds) 11.3 INR (0.8 - 1.1) 1.0 APTT (25 - 38 SECONDS) 30 Hematology WBC (4.0 - 10.5 10 3/uL) 4.1 RBC (3.93 - 5.22 10 6/uL) 3.92 L Hgb (11.2 - 15.7 g/dl) 13.0 Hct (34.1 - 44.9 %) 36.3 MCV (79.4 - 94.8 FL) 92.6 MCH (25.6 - 32.2 pg) 33.2 H MCHC (32.2 - 35.5 G/DL) 35.8 H RDW (11.7 - 14.4 %) 12.7 Plt Count (150 - 400 10 3/uL) 226 MPV (9.4 - 12.3 fl) 9.9 Nucleated RBC % (auto) (0.0 - 0.2 %) 0.0 Immature Gran % (0.0 - 0.4 %) 0.2 Seg Neutrophils % (34.0 - 71.1 %) 43.2 Lymphocytes % (19.3 - 51.7 %) 41.2 Monocytes % (4.7 - 12.5 %) 9.3 Eosinophils % (0.7 - 5.8 %) 5.1 Basophils % (0.1 - 1.2 %) 1.0 Immature Gran # (0.00 - 0.03 10*3/uL) 0.01 Neutrophils # (1.56 - 6.13 10 3/uL) 1.76 Lymphocytes # (1.18 - 3.74 10 3/uL) 1.68 Monocytes # (0.24 - 0.63 10 3/uL) 0.38 Eosinophils # (0.04 - 0.36 10 3/uL) 0.21 Basophils # (0.01 - 0.08 10 3/uL) 0.04 Nucleated RBCs # (0.00 - 0.18 10 3/uL) 0.00 Toxicology Alcohol, Quantitative (0 - 10 mg/dl) < 10Re-Evaluation MDMFree Text MDM NotesFree Text MDM NotesIndependent Historian: PatientAll prior medical records including admission notes by substation operator helper, discharge noteby substation operator helper, transfer notes (if applicable) and specialist consultation noteswere reviewed personally by me to gather full information on this patient.I independently reviewed and interpreted all of the blood work and radiologyexams ordered for this patient. I used this interpretation for my medicaldecision making for this patientConsultations:Prescription Management:Social Determinants effecting care and disposition:Re-Evaluation/Progress #1Text/Dict NoteWorkup is unremarkable. The patient is still quite somnolent may be due to theseizure and may be due to the benzodiazepines.Time of Re-Eval 2332ED CourseMedication(s) OrderedMedication(s) Ordered:Blood Formation,Coagulation Sig/Corrina Start time Last Medication Dose Route Stop Time Status Admin Enoxaparin Sodium 40 MG DAILY@0600 08/11 0600 AC SUBQCentral Nervous System Agents Sig/Corrina Start time Last Medication Dose Route Stop Time Status Admin Lorazepam 1 MG ONCE PRN 08/11 012 AC IV Levetiracetam 1,000 MG 1XED ONE 08/10 2210 DC 08/10 IV 08/10 2211 2214Electrolytic, Caloric, And Adrian Sig/Corrina Start time Last Medication Dose Route Stop Time Status Admin Lactated Ringer's 1,000 ML ASDIR 08/11 0125 AC IV 08/12 1444Gastrointestinal Drugs Sig/Corrina Start time Last Medication Dose Route Stop Time Status Admin Ondansetron HCl 4 MG Q6H PRN 08/11 012 CKD IVSkin And Mucous Membrane Agent Sig/Corrina Start time Last Medication Dose Route Stop Time Status Admin Mupirocin 1 APPLIC BID 10 08/11 1000 AC NASAL 08/16 0959Patient Discharge DepartureVital Signs/ConditionVital SignsFirst Documented: Result Date Time Pulse Ox 100 08/10 2217 Pulse 72 08/10 2217 Resp 19 08/10 2217 B/P 115/76 08/10 2225 B/P Mean 89 08/10 2225 Temp 36.6 08/10 2227Last Documented: Result Date Time Pulse Ox 100 08/11 0120 B/P 97/62 08/11 012 B/P Mean 73 08/11 012 Pulse 58 08/11 120 Resp 18 08/11 120 Temp 36.6 08/107All vital signs available at the time of this entry have been reviewed.Clinical ImpressionClinical ImpressionPrimary Impression: SeizureDisposition DecisionHospitalize Hosp Physician Hospitalist )( Accepts Hospitalization Yes )( Reason for HospitalizationSeizure )( Accepted Time 2331 )( Accepted Date 08/10/23Discharge/Care PlanReferralsProvider Referral: UNKNOWN at 0448RPT #: [id number] OF REPORT Problems Epilepsy, unspecified, not intractable, without status epilepticus(G40.909) Onset:15-Aug-2023 Comments:Onset Date: 20230810 Seizure Onset:10-Aug-2023 Mark Hernandez MD Comments:Onset Date: 20230811 Mental Status Cognitive function finding 11-Aug-2023 Allergies and Adverse Reactions morphine(Allergy) Onset: 11-Aug-2023 Reaction:HIVES Oxycodone(Allergy) Onset: 11-Aug-2023 Reaction:HIVES levetiracetam(Allergy) Onset: 11-Aug-2023 Reaction:UNKNOWN iodine(Allergy) Onset: 10-Aug-2023 Reaction:UNKNOWN Medications AMITRIPTYLINE_AMITOT10 7;40 MILLIGRAM BID Quantity:4 Win Walton MD Start:12-Aug-2023 Status:Discontinued Comments:[id number] Administration Instructions:ANTIDEPRESSANTSE: ANXIETY NERVOUSNESS acetaminophen 325 MG Oral Tablet [Tylenol];650 MILLIGRAM Q6H PRN Quantity:2 Win Walton MD Start:12-Aug-2023 Status:Discontinued Comments:[id number] Administration Instructions:WATCH FOR ADDED ACETAMINOPHEN INTAKE, MAX OF 4 GRAMS PER DAYNON-NARCOTIC ANALGESICSE: STOMACH UPSET RASH amitriptyline hydrochloride 10 MG Oral Tablet;40 MILLIGRAM PO BID Start:12-Aug-2023 Comments:40 MG PO BID TOPIRAMATE_TOPA100T;100 MILLIGRAM BEDTIME Quantity:1 Parish Daniels DO Start:11-Aug-2023 Status:Discontinued Comments:[id number] Administration Instructions:WEAR ONE PAIR OF CHEMO GLOVES (ASTM D6978)NEUROLEPTIC/ANTICONVULSANTSE: DIZZINESS, DROWSINESSTopiramate Tab (Topamax Tab) 100 MG PO BEDTIME (ordered on08/11/23 at 0445) TOPIRAMATE_TOPA100T;100 MILLIGRAM BEDTIME Quantity:1 Domenic Alexandra MD Start:11-Aug-2023 Status:Discontinued Comments:[id number] Administration Instructions:WEAR ONE PAIR OF CHEMO GLOVES (ASTM D6978)NEUROLEPTIC/ANTICONVULSANTSE: DIZZINESS, DROWSINESSTopiramate Tab (Topamax Tab) 100 MG PO BEDTIME (ordered on08/11/23 at 1357) MONTELUKAST SODIUM_SING10TA; 10 MILLIGRAM BEDTIME Quantity:1 Parish Daniels DO Start:11-Aug-2023 Status:Discontinued Comments:[id number] Administration Instructions:FORMULARY EQUIVALENT FOR ACCOCLATEBRONCHIAL DILATORSE: ANXIETY, ABDOMINAL PAIN, COUGHMontelukast Tab (Singulair Tab) 10 MG PO BEDTIME (orderedon 08/11/23 at 0437) HYDROXYZINE HCL_HYDROT2552;2 5 MILLIGRAM BEDTIME Quantity:1 Parish LillyJoanne Frances DO Start:11-Aug-2023 Status:Discontinued Comments:[id number] Administration Instructions:P T/[facility] APPROVED FORMULARY EQUIVALENT FOR VISTARIL(hydrOXYzine pamoate)ANTIHISTAMINESE: SEDATION DIZZINESShydrOXYzine Tab (Atarax Tab) 25 MG PO BEDTIME (ordered on08/11/23 at 0437) HALOPERIDOL_HALOOT1108;4 MILLIGRAM BEDTIME Quantity:4 Parish Daniels DO Start:11-Aug-2023 Status:Discontinued Comments:[id number] Administration Instructions:MOOD STABILIZERSE: RESTLESSNESS ANXIETY atorvastatin 10 MG Oral Tabl et [Lipitor];10 MILLIGRAM BEDTIME Quantity:1 Parish Daniels DO Start:11-Aug-2023 Status:Discontinued Comments:[id number] Administration Instructions:LIPOTROPICSE: ABDOMINAL PAIN HEADACHEAtorvastatin Tab (Lipitor Tab) 10 MG PO BEDTIME (orderedon 08/11/23 at 0437) LORazepam;2 MILLIGRAM Q2H Quantity:1 Win Walton MD Start:11-Aug-2023 Status:Discontinued Comments:Provider Administration Instructions:WHEN ADMINISTERING IV DILUTE WITH EQUAL AMOUNT OF NSSEDATIVESE: DROWSINESS DIZZINESSLORazepam Inj (Ativan Inj) 2 MG IV Q2H PRN seizures(ordered on 08/11/23 at 1616) TOPIRAMATE_TOPA100T;150 MILLIGRAM DAILY Quantity:2 Domenic Alexandra MD Start:11-Aug-2023 Status:Discontinued Comments:[id number] Administration Instructions:WEAR ONE PAIR OF CHEMO GLOVES (ASTM D6978)NEUROLEPTIC/ANTICONVULSANTSE: DIZZINESS, DROWSINESSTopiramate Tab (Topamax Tab) 150MG PO DAILY (ordered on08/11/23 at 1011) aspirin 81 MG Chewable Table t [Surekha Aspirin];81 MILLIGRAM DAILY@10 Quantity:1 Parish Daniels DO Start:11-Aug-2023 Status:Discontinued Comments:[id number] Administration Instructions:NON-NARCOTIC ANALGESICSE: INCREASED BRUISING STOMACH UPSETASA Tab (Aspirin Tab) 81 MG PO DAILY@10 (ordered on08/11/23 at 0437) MAGNESIUM OXIDE_MAG-UZ6245;4 00 MILLIGRAM DAILY@10 Quantity:1 Parish Daniels DO Start:11-Aug-2023 Status:Discontinued Comments:[id number] Administration Instructions:ELECTROLYTE SUPPLEMENTSE: DIARRHEA VOMITINGMagnesium Oxide Tab (Mag-Ox Tab) 400 MG PO DAILY@10(ordered on 08/11/23 at 0440) HALOPERIDOL_HALOOT1108;2 MILLIGRAM DAILY@10 Quantity:2 Parish Daniels DO Start:11-Aug-2023 Status:Discontinued Comments:[id number] Administration Instructions:MOOD STABILIZERSE: RESTLESSNESS ANXIETYHaloperidol Tab (Haldol Tab) PO (2 mg PO in AM and 4 mg POat bedtime) (ordered on 08/11/23 at 0437)Select reason (s) for two or more scheduled anti-psychotics[1st anti-psychotic - Not Applicable] mupirocin 0.02 MG/MG Topical Ointment [Bactroban];1 APPLIC BID 10 Quantity:1 Parish Daniels DO Start:74-Enz-0789Xqm:16-Aug-2023 Status:Discontinued Comments:[id number] Administration Instructions:Unit Dose-- Nasal Admin-APPLY TO NARES BID X 5 DAYS ONLYAPPLY INTO ONE NOSTRIL AND THEN INTO THE OTHER NOSTRIL.GENTLY SQUEEZE THE NOSE FOR APPROXIMATELY 10 SECONDSTO EVENLY APPLYTOPICAL ANTIBIOTICSE: RASH SKIN IRRITATION FERROUS_FERROT3229;325 MILLIGRAM DAILY Quantity:1 Parish Daniels DO Start:11-Aug-2023 Status:Discontinued Comments:[id number] Administration Instructions: DO NOT CRUSH (TRY TO GIVE WITH MEALS/SNACK)IRON REPLACEMENTSE: GI UPSET NAUSEAFerrous Sulfate Tab (Feosol Tab) 325 MG PO DAILY (orderedon 08/11/23 at 0437) VERAPAMIL HCL_CALAOT2402;120 MILLIGRAM DAILY Quantity:1 Parish Daniels DO Start:11-Aug-2023 Status:Discontinued Comments:[id number] Administration Instructions: DO NOT CRUSH MAY CUT ON SCOREANTIHYPERTENSIVESE: HYPOTENSION CONSTIPATIONFor dialysis patients, HOLD on Dialysis Days until AFTERDIALYSISVerapamil SR Tab (Calan SR Tab) 120 MG PO DAILY (HOLD for sertraline 50 MG Oral Tablet [Zoloft];100 MILLIGRAM DAILY Quantity:2 Parish Daniels DO Start:11-Aug-2023 Status:Discontinued Comments:[id number] Administration Instructions:PSYCHOSTIMULANTSE: ANXIETY NERVOUSNESSSertraline Tab (Zoloft Tab) 100 MG PO DAILY (ordered on08/11/23 at 0437) CARBAMAZEPINE 200 MG TAB.ER. 12H (Extended Release);400 MILLIGRAM Q12 Quantity:2 Parish Daniels DO Start:11-Aug-2023 Status:Discontinued Comments:[id number] Administration Instructions:WEAR ONE PAIR OF CHEMO GLOVES (ASTM D6978) WHENADMINISTERINGANTICONVULSANT; TREATMENT OF PAIN; BIPOLAR DISORDERSE: DIZZINESS, DROWSINESSTegretol-XR (Carbamazepine ER) 400 MG PO Q12 (ordered on08/11/23 at 0437) 0.4 ML enoxaparin sodium 100 MG/ML Prefilled Syringe [Lovenox];40 MILLIGRAM DAILY@0600 Quantity:1 Parish Daniels DO Start:11-Aug-2023 Status:Discontinued Comments:[id number] Administration Instructions:ADMINISTER SUBQ IN ABDOMEN ONLYANTICOAGULANTSE: INCREASED BLEEDING AND BRUISINGEnoxaparin Inj (Lovenox Inj) Consider monitoringPTT/PLT/HGB/HCT/SCr/CrCl 40 MG subQ daily@0600(Pharmacist to renal dose adjust to 30 mg daily for CrCl PANTOPRAZOLE SODIUM_PRO40;40 MILLIGRAM DAILY@0600 Quantity:1 Parish Daniels DO Start:11-Aug-2023 Status:Discontinued Comments:[id number] Administration Instructions:AUTOMATIC THERAPEUTIC SUBSTITUTION FOR NEXIUM 20 MGANTI-ULCER PREP/ GASTROINTESTINALSE: ABDOMINAL PAIN DIARRHEADO NOT CRUSH 1 ML hydrALAZINE hydrochlori de 20 MG/ML Injection;10 MILLIGRAM Q6H Quantity:1 Parish Joanne Frances DO Start:11-Aug-2023 Status:Discontinued Comments:Provider Administration Instructions:CHECK BP BEFORE ADMINISTRATIONANTIHYPERTENSIVESE: BLOOD PRESSURE AND/OR HEART RATE CHANGEShydrALAZINE Inj (Apresoline Inj) 10 MG IV Q6H PRN sbpgreater than 170,dbp>105 (ordered on 08/11/23 at 0437) LORazepam;1 MILLIGRAM ONCE Quantity:1 Parish Joanne D DO Start:11-Aug-2023 Status:Discontinued Comments:[id number] Administration Instructions:WHEN ADMINISTERING IV DILUTE WITH EQUAL AMOUNT OF NSSEDATIVESE: DROWSINESS DIZZINESSLORazepam Inj (Ativan Inj) 1 MG IV ONCE PRN seizures(NOTIFY , DECEMBER REPEAT X 1 IN 5 MINUTES) (ordered on08/11/23 at 0123) ondansetron 2 MG/ML Injectab le Solution [Zofran];4 MILLIGRAM Q6H Quantity:1 Parish Rubio Frances [place] Start:11-Aug-2023 Status:Discontinued Comments:Provider Administration Instructions:ANTINAUSEANTSE: HEADACHES AND DIARRHEAOndansetron Inj (Zofran Inj) 4 MG IV Q6H PRN nausea andvomiting (ordered on 08/11/23 at 0123) RINGERS SOLUTION,LACTATED_LACTIL1005;11 [id number] Administration Instructions:HYDRATION, HOSPITAL SOLUTIONSE: ITCHINESS COUGHINGLR 1000 ML 75 MLS/HR IV ASDIR X 2 doses (ordered on08/11/23 at 0123) Parishlincoln Rubio Frances [place] Start:16-Vsp-[id number]:12-Aug-2023 Comments:[id number] Administration Instructions:HYDRATION, HOSPITAL SOLUTIONSE: ITCHINESS COUGHINGLR 1000 ML 75 MLS/HR IV ASDIR X 2 doses (ordered on08/11/23 at 0123) phentermine hydrochloride 37 .5 MG Oral Tablet Start:11-Aug-2023 24 HR Verapamil hydrochlorid e 120 MG Extended Release Oral Tablet [Calan];120 MILLIGRAM PO BEDTIME Start:11-Aug-2023 Comments:120 MG PO BEDTIME hydrOXYzine hydrochloride 25 MG Oral Tablet;25 MILLIGRAM PO BEDTIME Start:11-Aug-2023 Comments:25 MG PO BEDTIME magnesium oxide 400 MG Oral Tablet;400 MILLIGRAM PO BEDTIME Start:11-Aug-2023 Comments:400 MG PO BEDTIME aspirin 81 MG Delayed Releas e Oral Tablet;81 MILLIGRAM PO BEDTIME Start:11-Aug-2023 Comments:81 MG PO BEDTIME montelukast 10 MG Oral Table t [Singulair];10 MILLIGRAM PO BEDTIME Start:11-Aug-2023 Comments:10 MG PO BEDTIME haloperidol 2 MG Oral Tablet ;2 MILLIGRAM PO BEDTIME Start:11-Aug-2023 Comments:2 MG PO BEDTIME atorvastatin 10 MG Oral Tabl et [Lipitor];10 MILLIGRAM PO BEDTIME Start:11-Aug-2023 Comments:10 MG PO BEDTIME esomeprazole 20 MG Delayed Release Oral Capsule [NexIUM];20 MILLIGRAM PO DAILY Start:11-Aug-2023 Comments:20 MG PO DAILY riboflavin 100 MG Oral Tablet;100 MILLIGRAM PO DAILY Start:11-Aug-2023 Comments:100 MG PO DAILY thiamine 100 MG Oral Tablet; 100 MILLIGRAM PO DAILY Start:11-Aug-2023 Comments:100 MG PO DAILY sertraline 100 MG Oral Tablet;150 MILLIGRAM PO DAILY Start:11-Aug-2023 Comments:150 MG PO DAILY cetirizine hydrochloride 10 MG Oral Tablet;10 MILLIGRAM PO DAILY Start:11-Aug-2023 Comments:10 MG PO DAILY topiramate 100 MG Oral Table t [Topamax];100 MILLIGRAM PO DAILY Start:11-Aug-2023 Comments:100 MG PO DAILY ferrous sulfate 325 MG Delay ed Release Oral Tablet;325 MILLIGRAM PO DAILY Start:11-Aug-2023 Comments:325 MG PO DAILY haloperidol 2 MG Oral Tablet ;2 MILLIGRAM PO DAILY Start:11-Aug-2023 Comments:2 MG PO DAILY clonazePAM 2 MG Oral Tablet; 2 MILLIGRAM PO PRN Start:11-Aug-2023 Comments:2 MG PO PRN As Needed for SEIZRUE 12 HR carBAMazepine 200 MG Extended Release Oral Tablet [TEGretol];400 MILLIGRAM PO Q12HR Start:11-Aug-2023 Comments:400 MG PO Q12HR levETIRAcetam 500 MG/5 ML SD V for IV push;1000 MILLIGRAM 1XED Quantity:2 Mark Hernandez MD Start:[id number]-[id number]:10-Aug-2023 Comments:[id number] Administration Instructions:IV push adminstration over 5 minutes- MUST dilute dose withEQUAL amount of 0.9% saline (same volume as drug dose) 1:1ANTICONVULSANTSE: DIZZINESS, DROWSINESS Social History Smoking Status Tobacco smoking consumption unknown Recorded: Results GLUCOSE BY MONITORING DEVICE Ordered On:13-Aug-2023 08:10 GLUCOSE BY MONITORIN G LFFWVT28nx/dL(Normal) Range:70mg/dL-110mg/dL COMPLETE BLOOD COUNT Ordered On:13-Aug-2023 05:43 RCSZRGTSGR95.2%(Low) Range:34. 1%-44.9% ZQWFUDCBVL15.7g/dL(Normal) Range :11.2g/dL-15.7g/dL MCH32.2pg(Normal) Range:25.6pg-3 2.2pg MCHC35.2g/dL(Normal) Range:32.2g /dL-35.5g/dL MCV91.5fL(Normal) Range:79.4fL-9 4.8fL MPV9.8fL(Normal) Range:9.4fL-12. 3fL PLATELET LKFAP93441*3/uL(Normal) Range:08542*3/uL-56525*3/uL RED BLOOD CELL COUNT3.6310*6/uL(Low) Range:3.9310*6/uL-5.2210*6/u L RBC DISTRIBUTION WIDTH12.5%(Normal) Range:11.7%-14.4% WHITE BLOOD CELL COUNT3.910*3/uL(Low) Range:410*3/uL-10.510*3/uL BASIC METABOLIC PANEL Ordered On:13-Aug-2023 06:00 UREA-N (BUN)16mg/dL(Normal) Ra nge:6mg/dL-22mg/dL CALCIUM8.7mg/dL(Normal) Range:8. 4mg/dL-10.2mg/dL JAPJNUQT375mvpn/L(Normal) Range: 95mmol/L-110mmol/L CARBON DIOXIDE (CO2)24mmol/L(Normal) Range:19mmol/L-34mmol/L CREATININE0.75mg/dL(Normal) Rang e:0.43mg/dL-1.13mg/dL ANION GAP7.0mmol/L(Normal) Range :5mmol/L-15mmol/L eGFR> 90 Range:>/=90 Comments:The eGFR is calculated using the 2020 CKD-EPI Cr equation,which includes serum Cr, age, and sex but does not include arace coefficient. The National Kidney Foundation recommendsthis formula for calculating eGFR in adults. GFR will notcalculate if sex is unknown or patient age is <18 years.Ref range: >/=90mL/min/1.73 m2 PRKVZOY10by/dL(Normal) Range:70m g/dL-110mg/dL POTASSIUM3.8mmol/L(Normal) Range :3.5mmol/L-5.2mmol/L KRMRXW527nzan/L(Normal) Range:13 5mmol/L-145mmol/L GLUCOSE BY MONITORING DEVICE Ordered On:12-Aug-2023 21:12 GLUCOSE BY MONITORIN G DLNWAM171us/dL(Normal) Range:70mg/dL-110mg/dL GLUCOSE BY MONITORING DEVICE Ordered On:12-Aug-2023 16:32 GLUCOSE BY MONITORIN G HRIKZX20bz/dL(Normal) Range:70mg/dL-110mg/dL GLUCOSE BY MONITORING DEVICE Ordered On:12-Aug-2023 11:45 GLUCOSE BY MONITORIN G NAUCXS686vi/dL(High) Range:70mg/dL-110mg/dL GLUCOSE BY MONITORING DEVICE Ordered On:12-Aug-2023 08:40 GLUCOSE BY MONITORIN G VSAPIN21dg/dL(Normal) Range:70mg/dL-110mg/dL COMPLETE BLOOD COUNT Ordered On:12-Aug-2023 06:48 ZHTFLCDKHX22.1%(Normal) Range: 34.1%-44.9% RBYWACSWMV02.5g/dL(Normal) Range :11.2g/dL-15.7g/dL MCH31.5pg(Normal) Range:25.6pg-3 2.2pg MCHC33.7g/dL(Normal) Range:32.2g /dL-35.5g/dL MCV93.4fL(Normal) Range:79.4fL-9 4.8fL MPV10.0fL(Normal) Range:9.4fL-12 .3fL PLATELET YIDOU49296*3/uL(Normal) Range:30963*3/uL-55534*3/uL RED BLOOD CELL COUNT3.6510*6/uL(Low) Range:3.9310*6/uL-5.2210*6/u L RBC DISTRIBUTION WIDTH12.6%(Normal) Range:11.7%-14.4% WHITE BLOOD CELL COUNT3.310*3/uL(Low) Range:410*3/uL-10.510*3/uL BASIC METABOLIC PANEL Ordered On:12-Aug-2023 07:06 UREA-N (BUN)13mg/dL(Normal) Ra nge:6mg/dL-22mg/dL CALCIUM8.5mg/dL(Normal) Range:8. 4mg/dL-10.2mg/dL RHYPGWAU181cafm/L(Normal) Range: 95mmol/L-110mmol/L CARBON DIOXIDE (CO2)25mmol/L(Normal) Range:19mmol/L-34mmol/L CREATININE0.69mg/dL(Normal) Rang e:0.43mg/dL-1.13mg/dL ANION GAP7.0mmol/L(Normal) Range :5mmol/L-15mmol/L eGFR> 90 Range:>/=90 Comments:The eGFR is calculated using the 2020 CKD-EPI Cr equation,which includes serum Cr, age, and sex but does not include arace coefficient. The National Kidney Foundation recommendsthis formula for calculating eGFR in adults. GFR will notcalculate if sex is unknown or patient age is <18 years.Ref range: >/=90mL/min/1.73 m2 YJMJMQI73cl/dL(Normal) Range:70m g/dL-110mg/dL POTASSIUM3.9mmol/L(Normal) Range :3.5mmol/L-5.2mmol/L AKBHTB571jhij/L(Normal) Range:13 5mmol/L-145mmol/L URINALYSIS WITH CULT REFLX Ordered On:12-Aug-2023 Comments:Indication for culture: Dysuria/Frequency 12-Aug-2023 06:20 BACTERIARare/[HPF](Abnormal) R haja:None /HPF URINE BILIRUBINNegative Range:Ne gative URINE BLOODNegative Range:Negati ve URINE CLARITYSlightly-Cloudy(Abnormal) Range:Clear URINE COLORYellow Range:Yellow URINE GLUCOSENegativemg/dL Range :Negative mg/dL URINE HYALINE CAST0-5/[LPF](Abnormal) Range:None /LPF URINE KETONENegativemg/dL Range: Negative mg/dL LEUKOCYTESSmall(Abnormal) Range: Negative MICROSCOPIC?Yes URINE MUCOUSRare/[HPF](Abnormal) Range:None /HPF NITRITENegative Range:Negative pH7.0 Range:5-9 URINE HMKGBUI71pe/dL(Abnormal) R haja:Negative mg/dL RBC0-5/[HPF] Range:0/[HPF]-5/ [HPF] SPECIFIC GRAVITY1.013(Normal) Ra nge:1.005-1.035 SQ EPITHELIAL CELL0-5/[HPF] Rang e:0/[HPF]-5/[HPF] UROBILINOGENNegativemg/dL Range: Negative mg/dL WBC0-5/[HPF] Range:0/[HPF]-5/ [HPF] DRUG SCREEN, URINE Ordered On:12-Aug-2023 06:33 AMPHETAMINENegative Range:NONE DETECT BARBITURATENegative Range:NONE D ETECT BENZODIAZEPINEPositive(Abnormal) Range:NONE DETECT CANNABINOIDSNegative Range:NONE DETECT COCAINE METABOLITENegative Range :NONE DETECT OPIATENegative Range:NONE DETEC T PHENCYCLIDINENegative Range:NONE DETECT Comments:These are screening test results for medical purposesonly. Any positive result is considered unconfirmed.A negative result indicates that no drug is presentin the sample or is present at concentrations belowthe cutoff level. Cutoff levels are as follows:Amphetamine/Methamph etamine 1000 ng/mLBarbiturate 200 ng/mLBenzodiazepine 200 ng/mLCocaine 300 ng/mLOpiates 300 ng/mLCannabinoids (THC) 50 ng/mLPhencyclidine (PCP) 25 ng/mL GLUCOSE BY MONITORING DEVICE Ordered On:11-Aug-2023 19:52 GLUCOSE BY MONITORIN G QPRFLY499un/dL(Normal) Range:70mg/dL-110mg/dL Comments:Notified RN GLUCOSE BY MONITORING DEVICE Ordered On:11-Aug-2023 14:27 GLUCOSE BY MONITORIN G JLSQUX70lb/dL(Normal) Range:70mg/dL-110mg/dL CK (CPK) Ordered On:11-Aug-2023 11:20 CK (CPK)79U/L(Normal) Range:26 U/L-192U/L CBC WITH DIFFERENTIAL Ordered On:11-Aug-2023 11:05 BASOPHIL ABSOLUTE #0.0310*3/uL(Normal) Range:0.0110*3/uL-0.0810*3/u L BASOPHIL1.1%(Normal) Range:0.1%- 1.2% EOSINOPHIL6.2%(High) Range:0.7%- 5.8% YEUVIARZGF33.9%(Normal) Range:19 .3%-51.7% MONOCYTE9.1%(Normal) Range:4.7%- 12.5% NUCLEATED RBC #0.0010*3/uL(Normal) Range:010*3/uL-0.1810*3/uL NUCLEATED RBC0.0%(Normal) Range: 0%-0.2% EOSINOPHIL ABSOLUTE #0.1710*3/uL(Normal) Range:0.0410*3/uL-0.3610*3/u L SEGMENTED RXUZVRSJEW96.7%(Normal) Range:34%-71.1% VDMDTFGNXA64.4%(Low) Range:34.1% -44.9% OEXPVNTWID22.4g/dL(Normal) Range :11.2g/dL-15.7g/dL IMMATURE GRANULOCYTE S #0.0010*3/uL(Normal) Range:010*3/uL-0.0310*3/uL IMMATURE GRANULOCYTES0.0%(Normal) Range:0%-0.4% LYMPHOCYTE ABSOLUTE #1.0710*3/uL(Low) Range:1.1810*3/uL-3.7410*3/u L MCH32.2pg(Normal) Range:25.6pg-3 2.2pg MCHC35.2g/dL(Normal) Range:32.2g /dL-35.5g/dL MCV91.5fL(Normal) Range:79.4fL-9 4.8fL MONOCYTE ABSOLUTE #0.2510*3/uL(Normal) Range:0.2410*3/uL-0.6310*3/u L MPV9.6fL(Normal) Range:9.4fL-12. 3fL NEUTROPHIL ABSOLUTE #1.2310*3/uL(Low) Range:1.5610*3/uL-6.1310*3/u L PLATELET MYBME94646*3/uL(Normal) Range:38675*3/uL-96895*3/uL RED BLOOD CELL COUNT3.5410*6/uL(Low) Range:3.9310*6/uL-5.2210*6/u L RBC DISTRIBUTION WIDTH12.6%(Normal) Range:11.7%-14.4% WHITE BLOOD CELL COUNT2.810*3/uL(Low) Range:410*3/uL-10.510*3/uL COMPLETE METABOLIC PANEL Ordered On:11-Aug-2023 11:52 ALBUMIN3.9g/dL(Normal) Range:3 .2g/dL-5g/dL ALKALINE FKGXHHDDHDZ45V/L(Normal) Range:20U/L-130U/L ALT/NZXU86U/L(Normal) Range:10U/ L-60U/L AST/GDJG80U/L(Normal) Range:10U/ L-40U/L TOTAL BILIRUBIN0.2mg/dL(Normal) Range:0.1mg/dL-1.2mg/dL UREA-N (BUN)11mg/dL(Normal) Rang e:6mg/dL-22mg/dL CALCIUM8.5mg/dL(Normal) Range:8. 4mg/dL-10.2mg/dL Corrected Calcium8.6mg/dL(Normal) Range:8.4mg/dL-10.2mg/dL Comments:Calcium corrected for Albumin. CPZJJSIE355uqso/L(Normal) Range: 95mmol/L-110mmol/L CARBON DIOXIDE (CO2)26mmol/L(Normal) Range:19mmol/L-34mmol/L CREATININE0.54mg/dL(Normal) Rang e:0.43mg/dL-1.13mg/dL ANION GAP9.0mmol/L(Normal) Range :5mmol/L-15mmol/L eGFR> 90 Range:>/=90 Comments:The eGFR is calculated using the 2020 CKD-EPI Cr equation,which includes serum Cr, age, and sex but does not include arace coefficient. The National Kidney Foundation recommendsthis formula for calculating eGFR in adults. GFR will notcalculate if sex is unknown or patient age is <18 years.Ref range: >/=90mL/min/1.73 m2 LGYNZYP51jh/dL(Normal) Range:70m g/dL-110mg/dL POTASSIUM4.1mmol/L(Normal) Range :3.5mmol/L-5.2mmol/L OCDGZE841vjdj/L(Normal) Range:13 5mmol/L-145mmol/L TOTAL PROTEIN7.1g/dL(Normal) Ran ge:5.5g/dL-8.7g/dL CK (CPK) Ordered On:11-Aug-2023 11:52 CK (CPK)74U/L(Normal) Range:26 U/L-192U/L PHOSPHATE (PHOSPHORUS) Ordered On:11-Aug-2023 11:52 PHOSPHATE (PHOSPHORUS)4.0mg/dL(Normal) Range:2.3mg/dL-5mg/dL TSH c Reflex FT4 Ordered On:11-Aug-2023 11:52 TSH c Reflex FT41.740{mcInU/mL}(Normal) Range:0.465{mcInU/mL}-4.68{m cInU/mL} GLUCOSE BY MONITORING DEVICE Ordered On:11-Aug-2023 09:38 GLUCOSE BY MONITORIN G LSGLXW028pn/dL(High) Range:70mg/dL-110mg/dL REDRAW GREEN TUBE Ordered On:10-Aug-2023 23:12 REDRAW GREEN TUBEREDRAW SPECIM EN ALBUMIN Ordered On:10-Aug-2023 17:58 ALBUMIN4.0g/dL(Normal) Range:3 .2g/dL-5g/dL MAGNESIUM Ordered On:10-Aug-2023 17:58 MAGNESIUM1.8mg/dL(Normal) Rang e:1.6mg/dL-2.4mg/dL CARBAMAZEPINE (TEGRETOL) Ordered On:10-Aug-2023 17:58 CARBAMAZEPINE (TEGRETOL)3.3ug/mL(Low) Range:6ug/mL-12ug/mL CBC WITH DIFFERENTIAL Ordered On:10-Aug-2023 22:27 BASOPHIL ABSOLUTE #0.0410*3/uL(Normal) Range:0.0110*3/uL-0.0810*3/u L BASOPHIL1.0%(Normal) Range:0.1%- 1.2% EOSINOPHIL5.1%(Normal) Range:0.7 %-5.8% TXENKCALKJ57.2%(Normal) Range:19 .3%-51.7% MONOCYTE9.3%(Normal) Range:4.7%- 12.5% NUCLEATED RBC #0.0010*3/uL(Normal) Range:010*3/uL-0.1810*3/uL NUCLEATED RBC0.0%(Normal) Range: 0%-0.2% EOSINOPHIL ABSOLUTE #0.2110*3/uL(Normal) Range:0.0410*3/uL-0.3610*3/u L SEGMENTED BCJBSYWWKW16.2%(Normal) Range:34%-71.1% IVSKPSKLAV68.3%(Normal) Range:34 .1%-44.9% OWJAHCZEFQ79.0g/dL(Normal) Range :11.2g/dL-15.7g/dL IMMATURE GRANULOCYTE S #0.0110*3/uL(Normal) Range:010*3/uL-0.0310*3/uL IMMATURE GRANULOCYTES0.2%(Normal) Range:0%-0.4% LYMPHOCYTE ABSOLUTE #1.6810*3/uL(Normal) Range:1.1810*3/uL-3.7410*3/u L MCH33.2pg(High) Range:25.6pg-32. 2pg MCHC35.8g/dL(High) Range:32.2g/d L-35.5g/dL MCV92.6fL(Normal) Range:79.4fL-9 4.8fL MONOCYTE ABSOLUTE #0.3810*3/uL(Normal) Range:0.2410*3/uL-0.6310*3/u L MPV9.9fL(Normal) Range:9.4fL-12. 3fL NEUTROPHIL ABSOLUTE #1.7610*3/uL(Normal) Range:1.5610*3/uL-6.1310*3/u L PLATELET EDJCK32940*3/uL(Normal) Range:42619*3/uL-29094*3/uL RED BLOOD CELL COUNT3.9210*6/uL(Low) Range:3.9310*6/uL-5.2210*6/u L RBC DISTRIBUTION WIDTH12.7%(Normal) Range:11.7%-14.4% WHITE BLOOD CELL COUNT4.110*3/uL(Normal) Range:410*3/uL-10.510*3/uL PROTHROMBIN TIME Ordered On:10-Aug-2023 Comments :On anticoagulants: Unknown 10-Aug-2023 22:35 PT QURHXJR15.3s(Normal) Range: 10s-12.8s INT'L NORAMLIZED RATIO1.0(Normal) Range:0.8-1.1 Comments:Use INR for clinical decision makingRecommended Therapeutic Range:INDICATION TARGETED INR RANGEPrevention and treatment of VTE 2.0-3.0Atrial Fibrillation 2.0-3.0Acute myocardial infarction 2.0-3.0Valvular heart disease 2.0-3.0Prosthetic tissue heart valves 2.5-3.5Recurrent Thromboembolism 2.5-3.5Targeted INR range of 2-3 is appropriate for patients whohave a mechanical bileaflet in the aortic position, normalcardiac chamber size, and no other risk factors for stroke.Co-administration of argatroban and warfarin produces acombined effect on INR. Consult pharmacist or physician todetermine if warfarin dose should be held when INR iselevated and patient is receiving argatroban. PTT PATIENT Ordered On:10-Aug-2023 Comments: On anticoagulants: Unknown 10-Aug-2023 22:35 PTT ZJSNOZH45c(Normal) Range:2 5s-38s Comments:Therapeutic heparin range is 58-92 seconds. COMPLETE METABOLIC PANEL Ordered On:10-Aug-2023 22:43 ALKALINE YRBDLACUUHE49B/L(Normal) Range:20U/L-130U/L ALT/IMCX53Q/L(Normal) Range:10U/ L-60U/L AST/RXUC71X/L(High) Range:10U/L- 40U/L TOTAL BILIRUBIN0.7mg/dL(Normal) Range:0.1mg/dL-1.2mg/dL UREA-N (BUN)11mg/dL(Normal) Rang e:6mg/dL-22mg/dL CALCIUM8.9mg/dL(Normal) Range:8. 4mg/dL-10.2mg/dL Corrected Calcium8.3mg/dL(Low) R haja:8.4mg/dL-10.2mg/dL Comments:Calcium corrected for Albumin. PVLNLVRL419btun/L(Normal) Range: 95mmol/L-110mmol/L CARBON DIOXIDE (CO2)26mmol/L(Normal) Range:19mmol/L-34mmol/L CREATININE0.63mg/dL(Normal) Rang e:0.43mg/dL-1.13mg/dL ANION GAP8.0mmol/L(Normal) Range :5mmol/L-15mmol/L eGFR> 90 Range:>/=90 Comments:The eGFR is calculated using the 2020 CKD-EPI Cr equation,which includes serum Cr, age, and sex but does not include arace coefficient. The National Kidney Foundation recommendsthis formula for calculating eGFR in adults. GFR will notcalculate if sex is unknown or patient age is <18 years.Ref range: >/=90mL/min/1.73 m2 BXDTHNQ28ph/dL(Normal) Range:70m g/dL-110mg/dL POTASSIUM5.2mmol/L(Normal) Range :3.5mmol/L-5.2mmol/L JSCQHB690zjsh/L(Normal) Range:13 5mmol/L-145mmol/L TOTAL PROTEIN7.9g/dL(Normal) Ran ge:5.5g/dL-8.7g/dL MAGNESIUM(Pending) Ordered On:10-Aug-2023 22:42 MAGNESIUMmg/dL Range:1.6mg/dL -2.4mg/dL ETHANOL Ordered On:10-Aug-2023 22:43 ETHANOL< 10mg/dL(Normal) Range :0mg/dL-10mg/dL Comments:Note: For Medical Evaluation Purposes only. This test maygive a positive result if other alcohols are present in thesample, e.g., draw site cleansed with alcohol or othervolatile disinfectants. Clinical correlation is advised. BETA HCG, QUALITATIVE Ordered On:10-Aug-2023 22:39 BETA HCG, QUALITATIVENEGATIVE Range:NEGATIVE Vital Signs 13-Aug-2023 08:08 TEMP DGDSBQC62.6c Comments:36.6 Pulse60 Comments:60 Respiratory Rate18 Comments:18 O2 DSW346% Comments:100 BP Gjybsdvi632wd[Hg] Comments:10 4 BP Igthjyann67vy[Hg] Comments:64 13-Aug-2023 02:39 TEMP CLWLNCT86n Comments:37.0 Pulse60 Comments:60 Respiratory Rate18 Comments:18 O2 SAT98% Comments:98 BP Lfcykcdp207no[Hg] Comments:10 9 BP Oiaqhdmda90gw[Hg] Comments:69 12-Aug-2023 21:14 TEMP LRRYSKP01r Comments:37.0 Pulse69 Comments:69 Respiratory Rate18 Comments:18 O2 SAT98% Comments:98 BP Jununesc326qd[Hg] Comments:10 4 BP Yfouaxaax80lp[Hg] Comments:68 12-Aug-2023 14:08 TEMP MYZDPPW25.5c Comments:36.5 Pulse67 Comments:67 Respiratory Rate18 Comments:18 O2 JTP446% Comments:100 BP Ixfyrnyc056ku[Hg] Comments:10 8 BP Rnbkccpid63hp[Hg] Comments:12-Aug-2023 07:21 TEMP VVKPJZB11.4c Comments:36.4 Pulse53 Comments:53 Respiratory Rate18 Comments:18 O2 SAT98% Comments:98 BP Afhwohgj439jx[Hg] Comments:10 7 BP Ynagbxshn28to[Hg] Comments:12-Aug-2023 04:37 TEMP DFWQFEJ33.4c Comments:36.4 Pulse56 Comments:56 Respiratory Rate17 Comments:17 O2 SAT98% Comments:98 BP Tafoqrpf023pv[Hg] Comments:11 0 BP Qyjqigeoj23bt[Hg] Comments:73 12-Aug-2023 02:38 TEMP VRKIMFC96.9c Comments:35.9 Pulse59 Comments:59 Respiratory Rate16 Comments:16 O2 SAT97% Comments:97 BP Uclbatow537uy[Hg] Comments:10 4 BP Snwgfhkiv32hm[Hg] Comments:11-Aug-2023 19:49 TEMP UTQQQPL26.3c Comments:36.3 Pulse67 Comments:67 Respiratory Rate18 Comments:18 O2 SAT98% Comments:98 BP Mruorwgp087ni[Hg] Comments:12 6 BP Fnwwulwqm95up[Hg] Comments:76 11-Aug-2023 18:16 TEMP PHUGXRT75.8c Comments:36.8 Pulse69 Comments:69 Respiratory Rate16 Comments:16 O2 SAT99% Comments:99 BP Znlxjjrf645ey[Hg] Comments:10 6 BP Ibgjpfxnk65gc[Hg] Comments:71 11-Aug-2023 15:41 Pulse63 Comments:63 Respiratory Rate16 Comments:16 O2 SAT98% Comments:98 BP Hiigpbda500gk[Hg] Comments:10 2 BP Dmjmivfeg86mc[Hg] Comments:68 11-Aug-2023 03:48 TEMP GWOZRSE40.4c Comments:36.4 Pulse55 Comments:55 Respiratory Rate16 Comments:16 O2 MZN247% Comments:100 BP Rzayakxw153ro[Hg] Comments:11 0 BP Dbhtdapwo85gn[Hg] Comments:81 11-Aug-2023 01:21 Pulse58 Comments:58 Respiratory Rate18 Comments:18 O2 DDZ262% Comments:100 BP Llpptsuk42dp[Hg] Comments:97 BP Mgqqbmafr91xw[Hg] Comments:62 10-Aug-2023 23:08 Pulse62 Comments:62 Respiratory Rate19 Comments:19 O2 COB537% Comments:100 BP Adxyhcox192mk[Hg] Comments:11 2 BP Ocjeyfkwg66gv[Hg] Comments:76 10-Aug-2023 22:31 TEMP UKXOAYO51.6c Comments:36.6 10-Aug-2023 22:30 Pulse72 Comments:72 Respiratory Rate19 Comments:19 O2 QKZ600% Comments:100 10-Aug-2023 22:26 Pulse66 Comments:66 Respiratory Rate17 Comments:17 O2 SAT98% Comments:98 BP Vveeekdp968jb[Hg] Comments:11 5 BP Mawyumopl94dl[Hg] Comments:76 10-Aug-2023 22:14 Height5.9141303[ft_us] Comments: 5 Faxzah73sc Comments:80.000 10-Aug-2023 22:14 BMI29.3kg/m2 Comments:29.3 Encounters Inpatient encounter Encounter Reason:SEIZURE Encounter Diagnosis:101,Unspecified convulsions,Migraine, unspecified, not intractable, without status migrainosus,Essential (primary) hypertension,Unspecified asthma, uncomplicated,Prediabetes,Depression, unspecified,Neoplasm of unspecified behavior of endocrine glands and other parts of nervous system,Hyperlipidemia, unspecified,Unspecified mood [affective] disorder,senior care (current) use of aspirin,Other custodial (current) drug therapy,Radiographic dye allergy status,Procedure and treatment not carried out because of patient's decision for other reasons,Epilepsy, unspecified, not intractable, without status epilepticus 12-Aug-2023 11:[id number] 11:38 Walker Rosario MD (Attending) [facility] Discharge Disposition:Left against medical advice or discontinued care ? ? ? -15-Aug-2023 [place] [address] Case Management ReportPATIENT NAME: FLORES AHN ROOM #: 3324DATE OF : 68 UNIT #: [id number]: Gurinder Cardoso MD ADMISSION DATE: 08/12/23 ----- HCM SUPPORT SERVICES ----- ---HCM Support Services User [place]:Comments:AMAScore: [id number]: Mansoor Risk - LowDate/Time: 08/13/2023 11:06 AM Date Entered: 08/12/2023Service Type: *Case ManagementCase Worker: Bandar [id number] Date: 08/15/2023ayer: PAT COMMERCIALReferral Status:BookedComments:--- 08/13/2023 11:44 AM by Geri Ortega ---PT IS LEAVING AGAINST MEDICAL ADVISE, REASON: SHE IS HERE TO VISIT [place] AND HAS ONLY SO MANY DAYS LEFT. SHE PROMISES TO FOLLOW WITH HER PCP.--- 08/12/2023 11:30 AM by Geri Ortega ---CM S/W WITH DTR PT IS ALERT AND ORIENTED USES A WALKER FOR AMBULATION. DTR YOU WHO IS NOK, PT IS HERE FOR VACATION FROM [place] VISITING [facility]. DTR TO TRANSPORT HOME WHEN DISCHARGED. ----- ------HCM DISCHARGE PLANNING ----- ---HCM Discharge Planning Comments: ----- ----HCM DISCHARGE PLANNING EVALUATION ----- -----Case Workers: Shannon,JoannaLiving Status: Adult-son or daughterSetting: Home-residence PATIENT NAME: FLORES AHN Limits: Mobility or ambulationDME: WalkerHCM Discharge Planning User [place]:Community Services Prior to Admission: None or NACurrent Mental Status/Cognition: Alert and OrientedInformation obtained from: PatientDischarge Barriers, select all that apply: None or NAPatient goals and preferences after discharge: TO RETURN HOMEBased on information gathered, is it likely that the patient's care needs canbe met in the environment from which he/she entered the hospital?: YesProposed Discharge Plan, select one: HomeHome Services needed: None or [place] a caregiver is needed, is there a caregiver available, willing and capableto provide care?: Not NeededCommunity services needed: NoneNew DME required at discharge: None or [place] new DME is required, is patient able to obtain DME?: Not ApplicableHome Modifications required: None or [place] home modifications are required, is patient able to obtain them?: NotApplicablePatient concerns about obtaining medications on day of discharge?: NoneTransportation needs at discharge: WITH DTRDischarge Plan Discussed with: PatientHave you discussed with the patient how his/her care needs may change overtime?: YesPatient/fraud representative agrees with discharge plan: YesDiscussed expected insurance coverage and/or out of pocket expenses: NoDate / Time: 08/12/2023 11:30 AMEvaluated by: Geri Ortega PATIENT NAME: FLORES AHN ===== =======Updated by: Ricardo San () - 08/15/2023 11:26 AM == PATIENT NAME: FLORES AHN Goals Acute Goals Standards of Practice will b e met See Health Plan of Care See Health Plan of Care See Health Plan of Care See Health Plan of Care See Health Plan of Care See Health Plan of Care Assessments Diagnosis Onset Date Resolution Status Seizure August 11, 2023 Active
== END 2024-07-29 07:49 | disposition home or self-care (01) ==
LOC: HO.CT 07:48
PROVIDERS: PCP Student in an Organized Health Care Education/Training Program; Visit Provider Psychiatry & Neurology Neurology
DX: J32.9 Chronic sinusitis, unspecified (principal)
CPT/HCPCS: 70486

== ENCOUNTER 2024-08-07 13:26 | Outpatient (AMB) | payer MEDICAID, SELFPAY ==
[2024-08-07 13:59] VITALS: BP 108/72; PULSE 70; O2SAT 98; BMI 31.8
--- NOTE | 2024-08-07 13:59 | MHC.OFFVIS ---
Vital Signs 08/07/24 13:59 Height 5 ft 3 in Weight 179 lb 8 oz BMI 31.8 BP 108/72 Blood Pressure Location Lt brachial Position Sitting Pulse 70 Pulse Source Pulse Oximeter Pulse Oximetry (%) 98 Oxygen Delivery Method Room Air Intake Visit Reasons: 6 month F/U Intake Note: Pt presents to the office today for a 6 month follow up. Pt states she has been having more headaches lately. Pt states she goes to sleep with a headache and wakes up with a headache. Pt states she notices advil helps her headaches better than tylenol. Allergies iodine Allergy (Severe, Verified 08/07/24 14:02) Anaphylaxis shellfish derived Allergy (Severe, Verified 08/07/24 14:02) Hives Seasonal Allergies Allergy (Intermediate, Verified 08/07/24 14:02) Watery Eyes Sneezing banana Allergy (Mild, Verified 08/07/24 14:02) Itchy codeine Allergy (Mild, Verified 08/07/24 14:02) Chest Pain morphine Allergy (Mild, Verified 08/07/24 14:02) Chest Pain tree nut Allergy (Mild, Verified 08/07/24 14:02) Itchy watermelon Allergy (Mild, Verified 08/07/24 14:02) Itchy Medication List - Last Reconciled 08/07/24 by NAN Garcia albuterol sulfate 2.5 mg inhalation Q4-6H PRN albuterol sulfate 90 mcg/actuation (ProAir HFA) 2 puffs inhalation QID amitriptyline 10 - 20 mg (1 - 2 x 10 mg) PO BEDTIME 30 days aripiprazole 20 mg PO BEDTIME aspirin 81 mg PO BEDTIME 30 days atorvastatin (Lipitor) 10 mg PO DAILY [Bilateral carpal tunnel wrist splints Use nightly while sleeping] spauywyjtp-yyaawaqjgx-gep-cod 90-131-89-30 mg 1 cap PO Q4H PRN calcium carbonate-vitamin D3 600 mg-10 mcg (400 unit) 1 tab PO BID celecoxib (Celebrex) 200 mg PO BID cetirizine 10 mg PO DAILY PRN clonazepam 2 mg orally for seizure lasting > 2 minutes, may repeat x's 1 and call 911; 30 days duloxetine 30 mg PO QAM erenumab-aooe (Aimovig Autoinjector) 140 mg subcutaneously monthly; inject 140mg (1 ml) sc once a month 30 days esomeprazole magnesium 20 mg PO QAM ferrous fumarate (Ferretts) 325 mg PO DAILY finasteride 5 mg PO DAILY fluocinolone 0.01% topical TID fluticasone propion-salmeterol 115-21 mcg/actuation (Advair HFA) 2 puffs inhalation ONCE [glucose tab PO PRN] hydroxyzine HCl 25 mg PO BEDTIME ketoconazole 2% 1 appl topical DAILY magnesium oxide 400 mg PO DAILY 30 days meclizine 25 mg PO DAILY PRN montelukast 10 mg PO BEDTIME multivitamin 1 tab PO DAILY onabotulinumtoxinA (Botox) IM ondansetron 4 mg PO Q8H PRN pantoprazole 40 mg PO pyridoxine (vitamin B6) 50 mg PO BID 30 days riboflavin (vitamin B2) 200 mg (2 x 100 mg) PO BID 30 days sertraline 50 mg PO QAM triamcinolone acetonide 0.5% 1 appl topical BID triamcinolone acetonide (Nasacort) 1 spray intranasal DAILY verapamil ER 120 mg PO DAILY 30 days vitamin A 1 cap PO QAM vitamin B complex (B Complex-Vitamin B12 tablet) 1 tab PO DAILY zolmitriptan 5 mg PO Q2H PRN 30 days HPI Comments Details: 53-yr-old female presents for f/u visit of migraine, functional neurological disorder. Pt reports she has continued to f/u w/ [facility] functional neurology, psychiatry, and cognitive therapy. Pt reports that [facility] now feel that she may have been having functional syncopal episodes from childhood. She continues to have convulsive episodes, last week she 3 episodes. She has episodes of left-sided twisting, becoming stuck, and slow. Now when walking, she approaches a sidewalk, she has to just stop and pause, before she can step down. For a few weeks, she was having difficulties walking, back pain. Saw rheumatology who gave her maritza hip injections, which was helpful. She feels that sometimes she feels better and other times she feels worse. She notes that [facility] tells her this is normal to have ups and downs. 01/26/2024, BLE EMG/NCS: normal. She recently had a head CT- d/t mid-frontal headache, results of which are pending. She has been having almost daily migraine for the last 3 weeks. The migraines were better before, however she has not had her Aimovig since May. The Amitriptyline 20mg qhs helps with sleep, but not so much the headache. Migraine headache, is mostly left sided, but can be bilateral, frontal, temporal, eye stabbing and pressure pain a/w rarely seeing crystals (like a glass shattered), photophobia, phonophobia, nausea, vomiting, allodynia, left facial spasms, brain fog, activity intolerance. [facility] Medical History (Updated 06/26/24 @ 14:12 by Mony Soto MD) Greater trochanteric bursitis of both hips Osteoarthritis involving multiple joints on both sides of body Cataract Pituitary abnormality Sleep disorder GERD (gastroesophageal reflux disease) HTN (hypertension) Diabetes Depression Anemia Surgical History Hx of tonsillectomy H/O tubal ligation H/O section H/O gastric bypass H/O laparoscopic adjustable gastric banding Hx of bilateral breast reduction surgery H/O right knee surgery H/O left knee surgery Family History Father Skin cancer Brother Heart disease Brother Cancer Mother Dementia Social History Household Members Other:: daughter Alcohol intake: never Patient Tobacco Use Status: Former Tobacco user Current occupational status: disabled Physical Exam Vital Signs: Last Vital Signs Pulse 70 08/07/24 13:59 BP 108/72 08/07/24 13:59 Pulse Ox 98 08/07/24 13:59 Oxygen Delivery Method Room Air 08/07/24 13:59 BMI result Body Mass Index 31.8 Const General: cooperative and no acute distress Orientation/consciousness: patient oriented x3 Resp Effort & Inspection: normal respiratory effort and able to speak in complete sentences Neuro General: patient oriented x3 Cranial nerves: Yes CN's II-XII intact bilaterally Cognition (Neuro): normal cognition Psych Appearance: grossly normal Mental Status: mental status grossly normal Speech and movement: Normal speech and movement present Affect: normal affect Attitude: cooperative Assessment & Plan Assessment & Plan (1) Migraine with aura, intractable, without status migrainosus: Code(s): G43.119 - Migraine with aura, intractable, without status migrainosus Category: Medical (2) Psychogenic nonepileptic seizure: Code(s): F44.5 - Conversion disorder with seizures or convulsions Category: Medical (3) Chronic migraine without aura, not intractable, without status migrainosus: Code(s): G43.709 - Chronic migraine without aura, not intractable, without status migrainosus Category: Medical (4) Spasmodic torticollis: Code(s): G24.3 - Spasmodic torticollis Category: Medical Plan For non-epileptic convulsions in setting of functional neurological d/o: Continue intensive cognitive behavioral therapy at [facility]. Continue to hold Tegretol XR. Will monitor status of muscle spasms and twisting, if worsens significantly will consider resuming carbamazepine (in collaboration with [facility]). F/u [facility] Epilepsy and Functional Neurological Disorder clinic as scheduled. For bilateral carpal tunnel syndrome: Bilateral carpal tunnel wrist splints qhs prn. For bilateral lower extremity paresthesias: 01/26/2024 BLE EMG/NCS- normal. Monitor clinically. Future consideration: Referral to physical therapy, trial of alpha lipoic acid. ? For migraine prevention: Discontinue Aimovig 140mg sc q month, as it is not on pt's insurance formulary. Start Ajovy 225mg/1.5ml autoinjector- injection 225mg subcutaneously once a month. Potential adverse effects of Ajovy include but are not limited to injection site reactions. Pt advised Ajovy will likely require insurance prior authorization. Ajovy should be refrigerated until 1 hr prior use. Once approved and available. Patient would like in office injection training. Trial Topiramate 25-50mg. Potential adverse effects of Topiramate, include but are not limited to fatigue, cognitive changes, paresthesias (tingling), vision changes, kidney stones. Continue Amitriptyline 20mg qhs. Continue Riboflavin, Mag, Verapamil ER 120mg qhs. Previous migraine prevention trials: Aimovig- effective but denied by insurance. For acute migraine tx: Continue prn Zolmitriptan. Previous acute migraine tx trials: Sumatriptan 100mg- ineffective. ? For spasmodic torticollis: Continue botox- Medications: New fremanezumab-vfrm (Ajovy) administer 225mg sc q month 675 mg (4.5 mL) subcut ONCE 4.5 mL 3RF 90 days G43.119 - Migraine with aura, intractable, without status migrainosus topiramate 25 - 50 mg (1 - 2 x 25 mg) PO BEDTIME 60 tabs 3RF 30 days Refilled zolmitriptan do not exceed 2 doses per 24 hrs 5 mg PO Q2H PRN 12 tabs 3RF migraine headache 30 days Discontinued erenumab-aooe Discontinued Reason: Doctor's Order 140 mg subcutaneously monthly; inject 140mg (1 ml) sc once a month 30 days 1 mL 6RF Coding Level of Care Code Est Pt Level 4 (44712) Diagnoses Migraine with aura, intractable, without status migrainosus G43.119 Psychogenic nonepileptic seizure F44.5 Chronic migraine without aura, not intractable, without status migrainosus G43.709 Spasmodic torticollis G24.3
== END 2024-08-07 15:05 | disposition home or self-care (01) ==
PROVIDERS: PCP Student in an Organized Health Care Education/Training Program; Visit Provider Nurse Practitioner Family
DX: G43.119 Migraine with aura, intractable, without status migrainosus (principal); F44.5 Conversion disorder with seizures or convulsions; G43.709 Chronic migraine without aura, not intractable, without status migrainosus; G24.3 Spasmodic torticollis
CPT/HCPCS: 99214

== ENCOUNTER → 2024-08-07 13:26 | Outpatient (BNVA) | payer MEDICAID, SELFPAY | PROVIDERS: PCP Student in an Organized Health Care Education/Training Program; Visit Provider Nurse Practitioner Family | DX: G43.709 Chronic migraine without aura, not intractable, without status migrainosus (principal); G43.119 Migraine with aura, intractable, without status migrainosus; G24.3 Spasmodic torticollis; F44.5 Conversion disorder with seizures or convulsions | CPT/HCPCS: 99212 ==

== ENCOUNTER 2024-08-26 12:12 | Outpatient (AMB) | payer MEDICAID, SELFPAY ==
--- NOTE | 2024-08-26 12:31 | A.OFFVIS_ITS ---
Vital Signs 08/26/24 12:32 Height 5 ft 3 in Weight 178 lb 6 oz BMI 31.6 BP 118/82 Blood Pressure Location Lt brachial Position Sitting Pulse 66 Pulse Source Pulse Oximeter Pulse Oximetry (%) 99 Oxygen Delivery Method Room Air Intake Visit Reasons: Botox Allergies iodine Allergy (Severe, Verified 08/26/24 12:33) Anaphylaxis shellfish derived Allergy (Severe, Verified 08/26/24 12:33) Hives Seasonal Allergies Allergy (Intermediate, Verified 08/26/24 12:33) Watery Eyes Sneezing banana Allergy (Mild, Verified 08/26/24 12:33) Itchy codeine Allergy (Mild, Verified 08/26/24 12:33) Chest Pain morphine Allergy (Mild, Verified 08/26/24 12:33) Chest Pain tree nut Allergy (Mild, Verified 08/26/24 12:33) Itchy watermelon Allergy (Mild, Verified 08/26/24 12:33) Itchy Medication List - Last Reconciled 08/26/24 by Betzaida Solis MD albuterol sulfate 2.5 mg inhalation Q4-6H PRN albuterol sulfate 90 mcg/actuation (ProAir HFA) 2 puffs inhalation QID amitriptyline 10 - 20 mg (1 - 2 x 10 mg) PO BEDTIME 30 days aripiprazole 20 mg PO BEDTIME aspirin 81 mg PO BEDTIME 30 days atorvastatin (Lipitor) 10 mg PO DAILY [Bilateral carpal tunnel wrist splints Use nightly while sleeping] lcsrowngbu-xjjoeukieb-sxr-cod 19-077-63-30 mg 1 cap PO Q4H PRN calcium carbonate-vitamin D3 600 mg-10 mcg (400 unit) 1 tab PO BID celecoxib (Celebrex) 200 mg PO BID cetirizine 10 mg PO DAILY PRN clonazepam 2 mg orally for seizure lasting > 2 minutes, may repeat x's 1 and call 911; 30 days duloxetine 30 mg PO QAM esomeprazole magnesium 20 mg PO QAM ferrous fumarate (Ferretts) 325 mg PO DAILY finasteride 5 mg PO DAILY fluocinolone 0.01% topical TID fluticasone propion-salmeterol 115-21 mcg/actuation (Advair HFA) 2 puffs inhalation ONCE fremanezumab-vfrm (Ajovy) 675 mg (4.5 mL) subcut ONCE 90 days [glucose tab PO PRN] hydroxyzine HCl 25 mg PO BEDTIME ketoconazole 2% 1 appl topical DAILY magnesium oxide 400 mg PO DAILY 30 days meclizine 25 mg PO DAILY PRN montelukast 10 mg PO BEDTIME multivitamin 1 tab PO DAILY onabotulinumtoxinA (Botox) IM ondansetron 4 mg PO Q8H PRN pantoprazole 40 mg PO pyridoxine (vitamin B6) 50 mg PO BID 30 days riboflavin (vitamin B2) 200 mg (2 x 100 mg) PO BID 30 days sertraline 50 mg PO QAM topiramate 25 - 50 mg (1 - 2 x 25 mg) PO BEDTIME 30 days triamcinolone acetonide 0.5% 1 appl topical BID triamcinolone acetonide (Nasacort) 1 spray intranasal DAILY verapamil ER 120 mg PO DAILY 30 days vitamin A 1 cap PO QAM vitamin B complex (B Complex-Vitamin B12 tablet) 1 tab PO DAILY zolmitriptan 5 mg PO Q2H PRN 30 days HPI Comments Details: 53y/o female comes for treatment of her cervical dystonia and migraines she reports pain in her forehead and sinuses. she has an appointment with ENT ? Side effects including spread of toxin effect, dysphagia, breathing difficulties , bronchitis etc was discussed in detail and the patient agreed to the procedure.An informed consent was obtained ??? Botulinum toxin type Q240icunh-ncs diluted with 2 cc of normal saline each at a concentration of 25 units in 0.5cc saline. Lot number [id number] expiration 04/2026 ??? Muscles injected Bilateral levator 20 units each Zachariah Splenius 25 units each Bilateral trapezius 30 units each Zachariah temporlis 20 units each Zachariah Zygomaticus 5 units each Total use 200 units She is following up with [facility]ND clinic at [facility] [place] for psychogenic seizures ??? [facility] Medical History Greater trochanteric bursitis of both hips Osteoarthritis involving multiple joints on both sides of body Cataract Pituitary abnormality Sleep disorder GERD (gastroesophageal reflux disease) HTN (hypertension) Diabetes Depression Anemia Surgical History Hx of tonsillectomy H/O tubal ligation H/O section H/O gastric bypass H/O laparoscopic adjustable gastric banding Hx of bilateral breast reduction surgery H/O right knee surgery H/O left knee surgery Family History Father Skin cancer Brother Heart disease Brother Cancer Mother Dementia Social History Household Members Other:: daughter Alcohol intake: never Patient Tobacco Use Status: Former Tobacco user Current occupational status: disabled Physical Exam Vital Signs: Last Vital Signs Pulse 66 08/26/24 12:32 BP 118/82 08/26/24 12:32 Pulse Ox 99 08/26/24 12:32 Oxygen Delivery Method Room Air 08/26/24 12:32 BMI result Body Mass Index 31.6 Const General: cooperative and no acute distress Orientation/consciousness: patient oriented x3 HEENT Head: Yes normocephalic Neuro General: patient oriented x3, gait normal and CN's II-XI intact bilaterally Cognition (Neuro): normal cognition Motor exam (neuro): 5/5 motor strength present throughout Office Procedures Botulinum toxin Injection 78691 - Dystonia Procedure code (CPT) selection complete Office Meds onabotulinumtoxinA 200 unit solution for injection Performing Provider: Betzaida Solis MD Performing Location: [facility] Administered by: Betzaida Solis MD on 08/26/24 12:58 Dose Route Admin Location Dispensed Lot Number Expiration Date [facility] Freight Separator 200 unit IM 200 units [id number] ALLERGAN/BOTOX Comments: see hpi Assessment & Plan Assessment & Plan (1) Spasmodic torticollis: Code(s): G24.3 - Spasmodic torticollis Category: Medical Plan Patient tolerated the procedure well she will call with any side effect F/u FND clinic Ct sinus Orders: Orders AMB Botulinum toxin Injection Today G24.3 - Spasmodic torticollis Medications: New onabotulinumtoxinA 200 units IM ONCE 1 ea 0RF spasmodic torticollis G24.3 - Spasmodic torticollis Coding Level of Care Code Est Pt Level 1 (90096) Diagnoses Spasmodic torticollis G24.3 CPT Codes Botox Injection - Botox 4: 41208 - Dystonia ([id number])
[2024-08-26 12:32] VITALS: BP 118/82; PULSE 66; O2SAT 99; BMI 31.6
== END 2024-08-26 12:56 | disposition home or self-care (01) ==
PROVIDERS: PCP Student in an Organized Health Care Education/Training Program; Visit Provider Psychiatry & Neurology Neurology
DX: G43.719 Chronic migraine without aura, intractable, without status migrainosus (principal)
CPT/HCPCS: 64615

== ENCOUNTER → 2024-08-26 12:12 | Outpatient (BNVA) | payer MEDICAID, SELFPAY | PROVIDERS: PCP Student in an Organized Health Care Education/Training Program; Visit Provider Psychiatry & Neurology Neurology | DX: G43.719 Chronic migraine without aura, intractable, without status migrainosus (principal); G24.3 Spasmodic torticollis | CPT/HCPCS: 64615; 99211; J0585 ==

== ENCOUNTER 2024-10-09 09:55 | Outpatient (REF) | payer MEDICAID, SELFPAY ==
[2024-10-09 10:20] LABS: MANUAL DIFF FLAG NO
--- OUTSIDE RECORDS SUMMARY | 2024-10-09 10:24 | XMS_ITS | Encounter Summary ---
Author Organization [employer] Address [address] [place] [address] Care Team Providers Care Bucket Turner Name Role Phone Gabbie Cisneros MD Primary Care Provider [phone] Reason for Visit * Reason Comments Pre-visit Planning SDOH screening negat gurwinder and tobacco screening negative Encounter Details Date Type Department Care Team ([facility] st Contact Info) Description 09/26/2024 Patient Outreach [facility] [address] [place] [address] Gabbie Cisneros MD [address] [place] [address] Pre-visit Planning (SDOH screening negative and tobacco screening negative) Social History Tobacco Use Types Packs/Day Years Used Date Smoking Tobacco: Never Smokeless Tobacco: Never Alcohol Use Standard Drinks/Week Comments Never 0 (1 standard drink = 0.6 oz pur e alcohol) Depression Answer Date Recorded Patient Health Questionnaire-9 Score 10 01/30/2024 Patient Health Questionnaire-9 Score 10 01/30/2024 Last PHQ-9: Questionnaire Data Not on file 0 01/30/2024 Housing Stability Answer Date Recorded What is your housing situation today? I have rosa wiggins 09/26/[address] you li ve. Do you have problems with any of the following? None of the above 09/26/2024 Food Insecurity Answer Date Recorded Within the past 12 months, y ou worried that your food would run out before you got money to buy more: Never True 09/26/2024 Within the past 12 months,th e food you bought just didn't last and you didn't have enough money to get more: Never True 01/2025 Transportation Answer Date Recorded In the past 12 months, has l ack of transportation kept you from medical appts, meetings, work or from getting things needed for daily living? No 09/26/2024 Utilities Answer Date Recorded In the past 12 months, has t he electric, gas, oil or water company threatened to shut off services in your home? No 09/26/2024 Depression Answer Date Recorded Patient Health Questionnaire-2 Score 2 01/30/2024 Internet Access Answer Date Recorded Internet Access Q1 Yes 09/26/2024 Internet Access Q2 Not on file 09/26/2024 Comments No Sex and Gender Information Value Date Recorded Sex Assigned at Female 06/20/2022 10:21 AM EDT Legal Sex Female 10:21 AM EDT Gender Identity Female 06/20/2022 10:21 AM EDT Sexual Orientation Straight 06/20/2022 10 :21 AM EDT documented as of this encounter Progress Notes * Maggie Ybarra - 09/26/2024 10:08 AM EST CC Maggie placed successful outbound call to patient for pre-visit planning. Patient name and confirmed. Patient confirms appt date and time, and has transportation. Biggest concern for appointment at this time is none Patient advised to bring to appointment a photo id and insurance card. Appropriate screenings completed in anticipation of appointment. documented in this encounter Plan of Treatment Upcoming Encounters Date Type Department Care Team (Late st Contact Info) Description 10/10/2024 8:30 AM EST Office Visit [facility] [address] [place] [address] Gabbie Cisneros MD [address] [place] [address] 11/28/2024 9:00 AM EDT Office Visit [facility] [address] [place] [address] Lisa Wayne, WARD [address] [place] [address] documented as of this encounter Goals Goal Patient Goal Type Associated Problems Recent Progress Patient-Stated? Author Patient will adhere to medication regimen General No Jerry Shelby, PharmD Help patient manage asthma General No Jerry Shelby, PharmD Note: Reduce use of LUANNE to 2x/week documented as of this encounter Visit Diagnoses Not on filedocumented in this encounter Additional Health Concerns Assessment Noted Time PHQ-9 Depression Total Score: 10 024 9:42 AM EDT documented as of this encounter Care Teams Bucket Turner Relationship Specialty Start Date End Date Gabbie Cisneros MD [address] [place] [address] PCP - General Family Medicine 05/02/18 Saloni Kaminski [employer] Consultant 05/19/23 Rosemarie Palmer [address] [place] [address] Nurse Practitioner Neurology 09/18/23 documented as of this encounter
--- OUTSIDE RECORDS SUMMARY | 2024-10-09 10:24 | XMS_ITS | Clinical Summary ---
Author Organization [facility] Address [address] [place] [address] Care Team Providers Care Sales And Support Center Agent Name Role Phone Gabbie Cisneros MD Primary Care Provider [phone] Allergies Active Allergy Reactions Criticality Noted Date Comments Banana 07/30/2022 Codeine 11/17/2018 Iodinated Contrast Media 07/26/2022 Can take with premeds (benadryl and steroid) Morphine 07/26/2022 Nuts 07/30/2022 Shellfish 07/30/2022 [place] 03/24/2024 Watermelon 07/30/2022 Medications Medication Sig Dispensed Refills Start Date End Date Status metFORMIN (GLUCOPHAGE) tablet 500 mg Take 500 mg by mouth 2 (two) times a day with meals. 0 Active hydroCHLOROthiazide (HYDRODIURIL) tablet 25 mg Take 25 mg by mouth daily. 0 Active amitriptyline (ELAVIL) tablet 25 mg Take 25 mg by mouth every night at bedtime. 0 Active omeprazole (PriLOSEC) 20 MG capsule Take 20 mg by mouth daily. 0 Active rOPINIRole (REQUIP) 0.25 MG tablet Take 0.25 mg by mouth 3 (three) times a day. 0 Active atorvastatin (LIPITOR) tablet 10 mg Take 10 mg by mouth every evening. 0 Active SUMAtriptan (IMITREX) 50 MG tablet Take 50 mg by mouth every 2 (two) hours as needed for migraine. 0 Active DULoxetine (CYMBALTA) DR capsule 20 mg Take 20 mg by mouth daily. 0 Active Fluocinolone Acetonide 0.01 % OIL Place in ear(s). 0 Active ketoconazole (NIZORAL) 2 % shampoo Apply topically 2 (two) times a week. Apply to damp skin, lather, leave on 5 minutes, and rinse 0 Active fluticasone-salmeter ol (ADVAIR HFA) 115-21 MCG/ACT inhaler Inhale 2 puffs into the lungs 2 (two) times a day. 0 Active buPROPion (WELLBUTRIN XL) 150 MG 24 hr tablet Take 150 mg by mouth daily. 0 Active cabergoline (DOSTINEX) tablet 0.5 mg Take 0.5 mg by mouth 2 (two) times a week. 0 Active fluticasone (FLONASE) 50 MCG/ACT nasal spray spray/apply 1 spray in each nostril daily. 16 g 0 07/26/2022 Active ibuprofen 800 MG tablet Take 1 tablet (800 mg total) by mouth every 8 (eight) hours as needed for pain for up to 15 doses. 15 tablet 0 04/02/2023 Active oxyCODONE (ROXICODONE) 5 MG immediate release tablet Take 1 tablet (5 mg total) by mouth every 4 (four) hours as needed for pain. 15 tablet 0 04/02/2023 Active oxyCODONE (ROXICODONE) 5 MG immediate release tablet Take 1 tablet (5 mg total) by mouth every 4 (four) hours as needed for pain. 15 tablet 0 04/02/2023 Active oxyCODONE (ROXICODONE) 5 MG immediate release tablet Take 1 tablet (5 mg total) by mouth every 4 (four) hours as needed for pain. 15 tablet 0 04/02/2023 Active albuterol 108 (90 Base) MCG/ACT inhaler Inhale 2 puffs into the lungs every 6 (six) hours as needed. 1 each 0 07/25/2023 Active azithromycin (Zithromax Z-Michele) 250 MG tablet Take 2 tablets together, the first day. Then one tablet daily for four more days. 6 tablet 0 03/24/2024 Active methocarbamol (ROBAXIN) 500 MG tablet Take 1 tablet (500 mg total) by mouth 3 (three) times a day as needed for up to 15 doses. 15 tablet 0 06/14/2024 Active Active Problems No known active problems Social History Tobacco Use Types Packs/Day Years Used Date Smoking Tobacco: Never Smokeless Tobacco: Former Tobacco Cessation:Counseling Given: Not Answered Sex and Gender Information Value Date Recorded Sex Assigned at Female 11/17/2018 12:57 PM EDT Gender Identity Not on file Sexual Orientation Not on file Job Start Date Occupation Industry Not on file Not on file Not on file Last Filed Vital Signs Vital Sign Reading Time Taken Comments Blood Pressure 107/67 06/14/2024 1:35 PM EDT Pulse 65 06/14/2024 1:35 PM EDT Temperature 36.7 ??C (98.1 ??F) 06/14/2024 1:35 PM ED T Respiratory Rate 16 06/14/2024 1:35 PM EDT Oxygen Saturation 100% 06/14/2024 1:35 PM EDT Inhaled Oxygen Concentration - - Weight 84.8 kg (187 lb) 06/14/2024 10:54 AM EDT Height 160 cm (5' 3 ) 06/14/2024 10:54 AM EDT Body Mass Index 33.13 06/14/2024 10:54 AM EDT Plan of Treatment Health Maintenance Due Date Last Done Comments Hepatitis C Screening 1969 Depression Screening 1981 Preventative Health Evaluation 12/10/1987 Cervical Cancer Screening (Pap Smear) 1990 Colon Cancer Screening (Colonoscopy) 2014 Breast Cancer Screening (Mammogram) 12/10/2019 COVID-19 Vaccine ( season) 2024 11/12/2021, 01/01/2021, 12/11/2020 Influenza Vaccine (#1) 2024 , 05/11/2022, 07/02/2021, Additional history exists DTap / Tdap / Td (3 - Td or Tdap) 04/16/2028 04/16/2018, 03/12/2013 Hepatitis B Vaccines Completed 04/15/2014, 12/18/2013, 11/14/2013 Pneumococcal Vaccine Aged Out 04/16/2018, 02/05/2018, 03/12/2013, Additional history exists No longer eligible based on patient's age to complete this topic Shingrix-Zoster Vaccine Completed 09/10/2020, 07/09 RSV Ped < 20 months Aged Out No longe r eligible based on patient's age to complete this topic Care Teams Sales And Support Center Agent Relationship Specialty Start Date End Date Gabbie Cisneros MD [address] [place] [address] PCP - General Adult Medicine 11/17/18
--- OUTSIDE RECORDS SUMMARY | 2024-10-09 10:24 | XMS_ITS | Encounter Summary ---
Author Organization [employer] Address [address] [place] [address] Care Team Providers Care Search Engine Marketing Strategist Name Role Phone Gabbie Cisneros MD Primary Care Provider [phone] Reason for Visit * Reason Comments Care Coordination ICP CP Encounter Details Date Type Department Care Team ([facility] st Contact Info) Description 10/01/2024 Telephone [facility] [address] [place], [place] [phone] Gabbie Cisneros MD [address] [place] [address] Care Coordination (ICP CP) Social History Tobacco Use Types Packs/Day Years [...] as of this encounter Progress Notes * Sondra Perry - 10/01/2024 10:57 AM EST PCP Designee has received and reviewed Care Plan from [facility]: Cutter Tender: Milad Mcfarland Contact Information: [phone] Care Plan scanned into patient's EHR and notification sent to PCP. documented in this encounter Plan of Treatment Upcoming Encounters Date Type Department Care Team ([facility] st Contact Info) Description 10/10/2024 8:30 AM EST Office Visit [facility] [address] [place] [address] Gabbie Cisneros MD [address] [place] [address] 11/28/2024 9:00 AM EDT Office Visit [facility] [address] [place] [address] Lisa Wayne CNM [address] [place] [address] documented as of this encounter Goals Goal [...] documented as of this encounter Care Teams Search Engine Marketing Strategist Relationship Specialty Start Date End Date Gabbie Cisneros MD [address] [place] [id number] PCP - General Family Medicine 05/02/18 Saloni Kaminski Molded Candles WickerPrestidigitator 05/19/23 Rosemarie Palmer [address] [place] [address] Nurse Practitioner Neurology 09/18/23 Milad Mcfarland Molded Candles WickerPrestidigitator 10/01/24 documented as of this encounter
--- OUTSIDE RECORDS SUMMARY | 2024-10-09 10:24 | XMS_ITS | Clinical Summary ---
Author Organization [facility] Address [address] [place] [address] Phone Care Team Providers Care Mess Attendant Crew Name Role Phone Gabbie Cisneros MD Primary Care Provider [phone] Allergies Active Allergy Reactions Criticality Noted Date Comments Avocado Shortness of breath High 10/07/2022 Banana Shortness of breath High 07/30/2022 Cat Dander Hives 10/07/2022 Codeine 10/26/2017 Other Reaction(s): Hives/Urticaria Dog Dander 10/07/2022 Other Reaction(s): Rhinorrhea Fruit Extracts 10/26/2017 Fruit Generic : Other Reaction(s): Numbness, tingling or swelling of the lips, tongue or mouth Watermelon,kiwi,bana na,apple, dragonfruit Gadolinium-Containing Contrast Media Hives High 02/18/2015 Other reaction(s): facial swelling, itchiness, hive Iodinated Contrast Media High 10/26/2017 Other Reaction(s): Hives/Urticaria Levetiracetam Psychiatric 12/19/2023 Morphine High 10/26/2017 Other 05/21/2019 Chicken meat- No reaction documented. Peanut Anaphylaxis High 10/26/2017 Shellfish Containing Products Anaphylaxis,Shortnes s of breath High 10/26/2017 Shellfish Allergy [place] 03/24/2024 Watermelon Shortness of breath High 07/30/2022 Medications albuterol 2.5 mg /3 mL (0.083 %) nebulizer solution Take 1 Vial by nebulization every 6 hours as needed for Wheezing. 07/13/20 Active albuterol HFA (PROAIR HFA ; PROVENTIL HFA ; VENTOLIN HFA) 90 mcg/actuation inhaler Inhale 2 Puffs into the lungs every 6 hours as needed for Cough, Wheezing or Shortness of Breath for up to 90 days. 10/27/19 18 Active dygcc-K-ncfchklbc dase (BEANO ORAL) XLDKJ-D-HIBUHKWA IDASE (BEANO) TAB : Take 1 tablet by mouth 4 times daily for 120 doses. 01/13/20 Active amitriptyline (ELAVIL) 25 mg tablet Take 1 Tab by mouth at bedtime. 07/13/20 Active aspirin 81 mg chewable tablet Take 81 mg by mouth daily. Active atorvastatin (LIPITOR) 10 mg tablet Take 10 mg by mouth daily. Active blood-glucose meter kit Active budesonide-formot Abdias (SYMBICORT) 160-4.5 mcg/actuation inhaler Inhale 2 Puffs into the lungs 2 times daily. 07/13/20 Active calcium carbonate-vitamin D (Oyster Shell Calcium-Vit D3) 500 mg-5 mcg (200 unit) per tablet TAKE 1 TABLET BY MOUTH DAILY 09/01/19 Active cholecalciferol (VITAMIN D-3) 1,250 mcg (50,000 unit) capsule Take 1 Capsule by mouth once a week. 01/27/20 Active cyclobenzaprine (FLEXERIL) 10 mg tablet Take 10 mg by mouth 3 times daily as needed. Active DULoxetine (Drizalma Sprinkle) 20 mg capsule, delayed rel sprinkle Take 20 mg by mouth 2 times daily. 07/13/20 Active epinephrine (EPIPEN 2-YONI INJ) Inject into the muscle. Active ferrous sulfate 325 mg (65 mg elemental iron) tablet Take 1 tablet by mouth daily. 07/13/20 Active fluocinolone 0.01 % cream Apply topically 2 times daily. Active fluticasone propion-salmetero L (ADVAIR HFA) 115-21 mcg/actuation inhaler Inhale 2 Puffs into the lungs 2 times daily for 90 days. 10/13/19 24 Active gabapentin (NEURONTIN) 100 mg capsule Take by mouth 3 times daily. 07/13/20 Active glucose blood test strip 1 Strip by In Vitro route 2 times daily. Active hydrocortisone (ANUSOL-HC) 2.5 % rectal cream Apply 1 Inch topically 2 times daily. 07/13/20 Active ketoconazole (NIZORAL) 2 % shampoo Apply topically daily as needed. Active ketotifen (ZADITOR) 0.025 % ophthalmic solution 1 Drop daily. Active loratadine (CLARITIN) 10 mg tablet Take 10 mg by mouth daily. Active magnesium oxide (MAG-OX) 400 mg (241.3 elemental magnesium) tablet Take 1 Tab by mouth daily. 07/13/20 Active mometasone (ASMANEX) 110 mcg/ actuation (30) inhaler Inhale into the lungs. Active multivit-min/iron /FA/vit K/lut (MULTIVITAMIN WOMEN 50 PLUS ORAL) TAKE 1 TABLET BY MOUTH DAILY 07/19/20 Active ondansetron (ZOFRAN) 8 mg tablet Take 1 Tab by mouth every 8 hours as needed for Nausea. 04/10/20 Active OneTouch UltraSoft Lancets 2 times daily. Active semaglutide (Ozempic) 0.25 mg or 0.5 mg (2 mg/3 mL) injection pen Inject 0.25 mg into the skin once a week. 01/10/20 24 Active topiramate (TOPAMAX) 100 mg tablet TAKE 1 TABLET BY MOUTH DAILY 05/26/20 23 Active triamcinolone (KENALOG) 0.5 % cream Apply topically 3 times daily. Active verapamil SR (CALAN-SR) 120 mg CR tablet Take 1 Tab by mouth at bedtime. 07/13/20 Active vitamin A 3,000 mcg (10,000 unit) capsule TAKE ONE CAPSULE EVERY MORNING 06/23/20 22 Active buPROPion SR (WELLBUTRIN SR) 150 mg 12 hr tablet 150 mg 2 times daily. 11/21/19 18 Active pantoprazole (PROTONIX) 40 mg EC tablet TAKE 1 TABLET BY MOUTH DAILY 90 tablet 3 09/04/19 25 Active sucralfate (Carafate) 100 mg/mL suspensionIndicat ions:Acute gastrojejunal ulcer without hemorrhage or perforation,Baria tric surgery status TAKE 10ml's BY MOUTH FOUR TIMES DAILY, shake WELL 1200 mL 3 09/11/19 25 Active Active Problems Problem Noted Date Diagnosed Date Anemia 06/07/2024 Controlled diabetes mellitus type II without com plication 06/07/2024 Depression with anxiety 06/07/2024 Fibromyalgia 06/07/2024 Hypertension 06/07/2024 Class 1 obesity due to exces s calories with serious comorbidity and body mass index (BMI) of 33.0 to 33.9 in adult 06/07/2024 Severely overweight 12/03/2019 Intestinal malabsorption following gastrectomy 0 09/03/2019 Migraine with aura 03/12/2019 Spondylosis of lumbar region without myelopathy or radiculopathy 01/24/2018 Pituitary microadenoma 10/26/2017 Encounters Date Type Department Care Team Description 07/16/2024 3:36 PM EST - 07/16/2024 5:36 PM EST Emergency [facility] Emergency [address] [place] [address] Discharge Disposition: Home or Self Care from Last 3 Months Immunizations Name Administration Dates Next Due Pfizer (ages 12 & older) DEISI S-CoV-2 COVID-19, mRNA, LNP-S, adelina-sucrose, preservative free 11/12/2021 Pfizer SARS-CoV-2 COVID-19, mRNA, LNP-S, preservative free 01/01/2021,12/11/2020 Pneumococcal polysaccharide 23 valent (Pneumovax 23) 2yo and older 02/05/2018 Medical History Medical History Date Comments Asthma DX:Asthma Seizure (CMS/HCC) DX:Seizure (HC C) Hypoglycemia DX:Hypoglycemia Social History Tobacco Use Types Packs/Day Years Used Date Smoking Tobacco: Never Smokeless Tobacco: Former Comments Unknown Sex and Gender Information Value Date Recorded Sex Assigned at Female 07/16/2024 5:02 PM EST Legal Sex Female 4:57 PM EST Gender Identity Not on file Sexual Orientation Not on file Obstetrics History Last Filed Vital Signs Vital Sign Reading Time Taken Comments Blood Pressure 122/81 07/16/2024 3:32 PM EST Pulse 84 07/16/2024 3:32 PM EST Temperature 36.7 ??C (98.1 ??F) 07/16/2024 3:32 PM ES T Respiratory Rate 18 07/16/2024 3:32 PM EST Oxygen Saturation 99% 07/16/2024 3:32 PM EST Inhaled Oxygen Concentration - - Weight 77.6 kg (171 lb) 07/16/2024 3:32 PM EST Height 160 cm (5' 3 ) 07/16/2024 3:32 PM EST Body Mass Index 30.29 07/16/2024 3:32 PM EST Plan of Treatment Upcoming Encounters Date Type Department Care Team (Late st Contact Info) Description 12/26/2024 11:15 AM EDT Office Visit [facility] [place] [address] [facility] [place] [address] Will Verduzco MD [address] [facility] [address] [place] [address] Health Maintenance Due Date Last Done Comments Breast Cancer Screening 1969 Diabetes: Annual Foot Exam 12/10/1979 Diabetes: Annual Retina Eye Exam 12/10/1979 Pneumococcal Vaccine: 50+ Years (3 of 3 - PCV) 04/16/2019 04/16/2018, 02/05/2018, 03/12/2013, Additional history exists Pneumococcal Vaccine: Pediatrics (0 to 5 Years) and At-Risk Patients (6 to 64 Years) (3 of 3 - PCV) 04/16/2019 04/16/2018, 02/05/2018, 03/12/2013, Additional history exists HIV Screening 07/29/2022 Hepatitis C Screening 07/29/2022 Social Influencers of Health Screening 07/29/2022 Cervical Cancer Screening: HPV 04/09/2023 04/09/2018 Diabetes: Annual Urine Albumin-Creatinine Ratio (uACR) 10/06/2023 12/06/2017 Diabetes: Blood Sugar Control Test (HGBA1C) 03/26/2024 09/26/2023, 08/07/2023, 10/07/2022 COVID-19 Vaccine ( season) 2024 11/12/2021, 01/01/2021, 12/11/2020 Influenza Vaccine (#1) 2024 3, 05/11/2022, 07/02/2021, Additional history exists Depression Screening 01/29/2025 01/30/2024 Diabetes: Annual GFR (Glomerular Filtration Rate) 06/14/2025 06/14/2024, 06/14/2024, 03/29/2024, Additional history exists Hypertension/CHF/CAD Annual BMP Blood Test 06/14/2025 06/14/2024, 06/14/2024, 03/29/2024, Additional history exists DTaP,Tdap,and Td Vaccines (3 - Td or Tdap) 04/16/2028 04/16/2018, 03/12/2013 Cholesterol Screening (Lipid Panel) 08/07/2028 08/07/2023, 12/06/2017 Colorectal Cancer Screening: Colonoscopy 05/13/2030 05/13/2020 Hepatitis B Vaccines Completed 04/15/2014, 12/18/2013, 11/14/2013 Zoster Vaccines Completed 09/10/2020, 07/09/2020 HIB Vaccines Aged Out No longer eligi ble based on patient's age to complete this topic HPV Vaccines Aged Out No longer eligi ble based on patient's age to complete this topic Hepatitis A Vaccines Aged Out No long er eligible based on patient's age to complete this topic IPV Vaccines Aged Out No longer eligi ble based on patient's age to complete this topic MMR Vaccines Aged Out No longer eligi ble based on patient's age to complete this topic Meningococcal ACWY Vaccine Aged Out N o longer eligible based on patient's age to complete this topic Meningococcal B Vacine Aged Out No lo nger eligible based on patient's age to complete this topic RSV Immunization Patients Under 20 months Aged Out No longer eligible based on patient's age to complete this topic Varicella Vaccines Aged Out No longer eligible based on patient's age to complete this topic Procedures Procedure Name Priority Date/Time Associated Diagnosis Comments HEMOGLOBIN A1C Routine 09/26/2023 ANNUAL BMP BLOOD TEST Routine 08/25/2023 COLONOSCOPY Routine 05/13/2020 HPV Routine 04/09/2018 URINE ALBUMIN CREATININE RATIO Routine 12/06/2017 LIPID PANEL Routine 12/06/2017 from Last 3 Months or Most Recently Relevant to Health Maintenance Results * Hemoglobin A1c (09/26/2023) [facility] Hemoglobin A1C 5.1 <=6.5 % Blood Venous blood specimen / Unknown Result [facility] Provider LAB BLOOD ORDERABLES Awa l Result * Annual BMP Blood Test (08/25/2023) [facility] Annual BMP Blood Test Abstracted Result [facility] Final Result * Colonoscopy (05/13/2020) [facility] Colonoscopy Abstracted, No interpretation Anatomical Region Laterality Modality Other Result [facility] Final Result * Cervical Cancer Screening: HPV (04/09/2018) [facility] Cervical Cancer Screening: HPV Abstracted ,Negative Result [facility] Final Result * Urine Albumin Creatinine Ratio (12/06/2017) [facility] Urine Albumin Creatinine Ratio Abstracted Result [facility] Final Result * Lipid panel (12/06/2017) [facility] LDL/HDL Ratio 3 0 - 4 Triglycerides 140 0 - 150 mg/dL Cholesterol 190 0 - 200 mg/dL HDL 75 >=40 mg/dL LDL Cholesterol 87 0 - 100 mg/dL Blood Venous blood specimen / Unknown Result [facility] Provider LAB BLOOD ORDERABLES Awa l Result from Last 3 Months or Most Recently Relevant to Health Maintenance Insurance MEDICAID - [place] Care Teams Mess Attendant Crew Relationship Specialty Start Date End Date Gabbie Cisneros MD [address] [place] [id number] PCP - General 11/17/18
--- OUTSIDE RECORDS SUMMARY | 2024-10-09 10:24 | XMS_ITS | Encounter Summary ---
Author Organization [employer] Address [address] [place] [address] Care Team Providers Care Freezer Assistant Name Role Phone Gabbie Cisneros MD Primary Care Provider [phone] Reason for Visit * Reason Onset Date Comments Med Refill Appointment 2023 [facility] Encounter Details Date Type Department Care Team (Late st Contact Info) Description 2023 Refill [facility] [address] [place] [address] Andrew Lozano FNP Social History Tobacco Use Types Packs/Day Years Used Date Smoking Tobacco: Never Smokeless Tobacco: Never Depression Answer Date Recorded Patient Health Questionnaire-9 Score 7 10/30/2023 Patient Health Questionnaire-9 Score 7 10/30/2023 Last PHQ-9: Questionnaire Data Not on file 0 10/30/2023 Housing Stability Answer Date Recorded What is your housing situation today? I have rosa wiggins 06/06/[address] you li ve. Do you have problems with any of the following? None of the above 06/06/2023 Food Insecurity Answer Date Recorded Within the past 12 months, y ou worried that your food would run out before you got money to buy more: Never True 06/06/2023 Within the past 12 months,th e food you bought just didn't last and you didn't have enough money to get more: Never True Transportation Answer Date Recorded In the past 12 months, has l ack of transportation kept you from medical appts, meetings, work or from getting things needed for daily living? No 06/06/2023 Utilities Answer Date Recorded In the past 12 months, has t he electric, gas, oil or water Angella Joy threatened to shut off services in your home? No 06/06/2023 Depression Answer Date Recorded Patient Health Questionnaire-2 Score 2 10/30/2023 Comments Unknown Sex and Gender Information Value Date Recorded Sex Assigned at Female 06/20/2022 10:21 AM EDT Legal Sex Female 10:21 AM EDT Gender Identity Female 06/20/2022 10:21 AM EDT Sexual Orientation Straight 06/20/2022 10 :21 AM EDT documented as of this encounter Miscellaneous Notes * Telephone Encounter - Praveena Thompson [place] - 12/14/2023 11:20 AM EDT Incoming Call from pt regarding to re-schedule her apt as tele-visit -RV. Pt agrees to schedule for 01/30/24. documented in this encounter Plan of Treatment Upcoming Encounters Date Type Department Care Team (Late st Contact Info) Description 10/10/2024 8:30 AM EST Office Visit [facility] [address] [place] [address] Gabbie Cisneros MD [address] [place] [address] 11/28/2024 9:00 AM EDT Office Visit [facility] [address] [place] [address] Lisa Wayne CNM [address] [place] [address] documented as of this encounter Goals Goal [...] Assessment Noted Time PHQ-9 Depression Total Score: 7 03/11/20 24 9:31 AM EDT documented as of this encounter Care Teams Freezer Assistant Relationship Specialty Start Date End Date Gabbie Cisneros MD [address] [place] [address] PCP - General Family Medicine 05/02/18 Saloni Kaminski Silica Filter OperatorElectric Motor Repair Supervisor 05/19/23 Rosemarie Palmer [address] [place] [address] Nurse Practitioner Neurology 09/18/23 Milad Mcfarland Silica Filter OperatorElectric Motor Repair Supervisor 10/01/24 documented as of this encounter
--- OUTSIDE RECORDS SUMMARY | 2024-10-09 10:24 | XMS_ITS | Encounter Summary ---
Author Organization [employer] Address [address] [facility] [address] 7[address] [place] [address] Care Team Providers Care A R Specialist Name Role Phone Gabbie Cisneros MD Primary Care Provider [phone] Reason for Visit * Reason Onset Date Comments Referral 09/27/2024 Encounter Details Date Type Department Care Team ([facility] st Contact Info) Description 09/27/2024 Telephone [facility] [address] [place] [address] Gabbie Cisneros MD [address] [place] [address] Referral Social History Tobacco Use Types Packs/Day Years [...] encounter Miscellaneous Notes * Telephone Encounter - Kay Romo RN - 09/27/2024 4:07 PM EST Pt is already established with [facility] Rhe[facility]. Pt needs to call to schedule appt. * Telephone Encounter - Denny Hernandez - 09/27/2024 2:37 PM EST Tc from Milad Stating that pt is requesting a referral to Rheumatology. Contact Milad at [phone] documented in this encounter Plan of Treatment Upcoming Encounters Date Type Department Care Team (Late st Contact Info) Description 10/10/2024 8:30 AM EST Office Visit [facility] MED & PEDS 505 [place] [address] Gabbie Cisneros MD [address] [place] [address] 11/28/2024 9:00 AM EDT Office Visit [facility] PEDS 505 [place] [address] Lisa Wayne, WARD [address] [place] [address] documented as of this encounter Goals Goal Patient Goal Type Associated Problems Recent Progress Patient-Stated? Author Patient will adhere to medication regimen General No Jerry Shelby, PharmD Help patient manage asthma General No Jerry Shelby, AlliD Note: Reduce use of LUANNE to 2x/week documented as of this encounter Visit Diagnoses Not on filedocumented in this encounter Additional Health Concerns Assessment Noted Time PHQ-9 Depression Total Score: 10 024 9:42 AM EDT documented as of this encounter Care Teams A R Specialist Relationship Specialty Start Date End Date Gabbie Cisneros MD [address] [place] [address] PCP - General Family Medicine 05/02/18 Saloni Kaminski Minesweeping OfficerTableau Administrator 05/19/23 Rosemarie Palmer [address] [place] [address] Nurse Practitioner Neurology 09/18/23 Milad Mcfarland Minesweeping OfficerTableau Administrator 10/01/24 documented as of this encounter
--- OUTSIDE RECORDS SUMMARY | 2024-10-09 10:24 | XMS_ITS | Encounter Summary ---
Author Organization [employer] Address [address] [facility] [address] 7[address] [place] [address] Care Team Providers Care Grocery Supervisor Name Role Phone Gabbie Cisneros MD Primary Care Provider [phone] Encounter Details Date Type Department Care Team (Latest Contact Info) Description 10/04/2024 Travel Social History Tobacco Use Types Packs/Day Years [...] AM EDT documented as of this encounter Plan of Treatment Upcoming Encounters Date Type Department Care Team (Late st Contact Info) Description 10/10/2024 8:30 AM EST Office Visit [facility] MED & PEDS [address] [place], [place] [phone] Gabbie Cisneros MD 505 [place] [address] 11/28/2024 9:00 AM EDT Office Visit [facility] MED & PEDS [address] [place] [address] Lisa Wayne, WARD [address] [place] [address] documented as of this encounter Goals Goal Patient Goal Type Associated Problems Recent Progress Patient-Stated? Author Patient will adhere to medication regimen General No RamirezlogJerry rivas, PharmD Help patient manage asthma General No Jerry Shelby, PharmD Note: Reduce use of LUANNE to 2x/week documented as of this encounter Visit Diagnoses Not on filedocumented in this encounter Additional Health Concerns Assessment Noted Time PHQ-9 Depression Total Score: 10 024 9:42 AM EDT documented as of this encounter Care Teams Grocery Supervisor Relationship Specialty Start Date End Date Gabbie Cisneros MD [address] [place] [address] PCP - General Family Medicine 05/02/18 Saloni Kaminski Production CookTractor Sweeper Driver 05/19/23 Rosemarie Palmer [address] [place] [address] Nurse Practitioner Neurology 09/18/23 Milad Mcfaralnd Production CookTractor Sweeper Driver 10/01/24 documented as of this encounter
--- OUTSIDE RECORDS SUMMARY | 2024-10-09 10:24 | XMS_ITS | Encounter Summary ---
Author Organization [employer] Address [address] [facility] [address] 7[address] [place] [address] Care Team Providers Care Tool Analyst Name Role Phone Gabbie Cisneros MD Primary Care Provider [phone] Encounter Details Date Type Department Care Team (Late st Contact Info) Description 01/19/2024 Orders Only [facility] MED & PEDS [address] [place] [address] Provider, MD Marina Social History Tobacco Use Types Packs/Day Years [...] Patient Health Questionnaire-2 Score 2 10/30/2023 Comments No Sex and Gender Information Value [...] Description 10/10/2024 8:30 AM EST Office Visit [facility]EDS [address] [place] [address] Gabbie Cisneros MD 505 [place] [address] 11/28/2024 9:00 AM EDT Office Visit [facility]S [address] [place] [address] Lisa Wayne, CN 230 [place] [address] documented as of this encounter Goals Goal Patient Goal Type Associated Problems Recent Progress Patient-Stated? Author Patient will adhere to medication regimen General No Jerry Shelby, PharmD Help patient manage asthma General No Jerry Shelby, PharmD Note: Reduce use of LUANNE to 2x/week documented as of this encounter Procedures Procedure Name Priority Date/Time Associated Diagnosis Comments PULMONARY FUNCTION TESTING Routine 10/10/2023 9:02 AM EST documented in this encounter Results * Pulmonary function testing (10/10/2023 9:02 AM EST) us Historical Provider MD PFT ORDERABLES Final Res ult documented in this encounter Visit Diagnoses Not on filedocumented in this encounter Additional Health Concerns Assessment Noted Time PHQ-9 Depression Total Score: 7 10/30/19 24 9:31 AM EDT documented as of this encounter Care Teams Tool Analyst Relationship Specialty Start Date End Date Gabbie Cisneros MD [address] [place] [address] PCP - General Family Medicine 05/02/18 Saloni Kaminski Plug WirerLoader Demolder 05/19/23 Rosemarie Palmer [address] [place] [address] Nurse Practitioner Neurology 09/18/23 Milad Mcfarland Plug WirerLoader Demolder 10/01/24 documented as of this encounter
--- OUTSIDE RECORDS SUMMARY | 2024-10-09 10:24 | XMS_ITS | Encounter Summary ---
Author Organization [employer] Address 75 [facility] 7t [place] [address] Care Team Providers Care Laser Technician Name Role Phone Gabbie Cisneros MD Primary Care Provider [phone] Reason for Visit * Reason Comments Med Refill Encounter Details Date Type Department Care Team ([facility] Contact Info) Description 02/09/2024 Refill [facility] MED & PEDS [address] [place] [address] Rosalva Hidalgo MD 505 [place] [address] Lichen sclerosus Social History Tobacco Use Types Packs/Day Years [...] Recorded Patient Health Questionnaire-2 Score 2 01/30/2024 Comments No Sex and Gender Information Value [...] Description 10/10/2024 8:30 AM EST Office Visit [facility] MED & PEDS 505 [place] [address] Gabbie Cisneros MD 505 [place] [address] 11/28/2024 9:00 AM EDT Office Visit [facility] MED & PEDS [address] [place] [address] Lisa Wayne CNM 230 [place] [address] documented as of this encounter Goals Goal Patient Goal Type Associated Problems Recent Progress Patient-Stated? Author Patient will adhere to medication regimen General No Jerry Shelby, PharmD Help patient manage asthma General No Jerry Shelby, PharmD Note: Reduce use of LUANNE to 2x/week documented as of this encounter Visit Diagnoses Diagnosis Lichen sclerosus Circumscribed scleroderma documented in this encounter Additional Health Concerns Assessment Noted Time PHQ-9 Depression Total Score: 024 9:42 AM EDT documented as of this encounter Care Teams Laser Technician Relationship Specialty Start Date End Date Gabbie Cisneros MD [address] [place] [address] PCP - General Family Medicine 05/02/18 Saloni Kaminski Plug And Mold FinisherBudget Accountant 05/19/23 Rosemarie Palmer [address] [place] [address] Nurse Practitioner Neurology 09/18/23 Milad Mcfarland Plug And Mold FinisherBudget Accountant 10/01/24 documented as of this encounter
--- OUTSIDE RECORDS SUMMARY | 2024-10-09 10:24 | XMS_ITS | Encounter Summary ---
Author Organization [employer] Address [address] [facility] [address] [place] [address] Care Team Providers Care Refrigerating Oiler Name Role Phone Gabbie Cisneros MD Primary Care Provider [phone] Reason for Visit * Reason Comments Follow-up Encounter Details Date Type Department Care Team ([facility] Contact Info) Description 10/08/2024 11:15 AM EST Office Visit [facility] MED & PEDS [address] [place] [address] Rosalva Hidalgo MD 505 [place] [address] Erythema nodosum (Primary Dx); Androgenetic alopecia; Androgenetic alopecia; Varicose veins of left leg with edema Social History Tobacco Use Types Packs/Day Years [...] AM EDT documented as of this encounter Last Filed Vital Signs Vital Sign Reading Time Taken Comments Blood Pressure 128/82 10/08/2024 11:34 AM EST Pulse - - Temperature 36.6 ??C (97.9 ??F) 10/08/2024 11:[address] Respiratory Rate 20 10/08/2024 11:34 AM EST Oxygen Saturation - - Inhaled Oxygen Concentration - - Weight 79.7 kg (175 lb 9.6 oz) 10/08/2024 11:34 AM EST Height 161.5 cm (5' 3.58 ) 10/08/2024 11:[address] Body Mass Index 30.54 10/08/2024 11:34 AM EST documented in this encounter Progress Notes * Rosalva Hidalgo MD - 10/08/2024 11:15 AM EST Subjective Patient ID: Radha Fernandez is a 53 y.o. female who presents for Follow-up. HPI Follow up androgenetic alopecia. EN Resolved. Pt reports less hair shedding. Patient Active Problem List Diagnosis Prolactinoma (CMS/HCC) Plantar fasciitis Joint pain Fibromyositis Diabetes mellitus type 2, uncomplicated (CMS/HCC) Arthritis of lumbar spine Arthritis of left knee 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) Pituitary neoplasm Parathyroid adenoma Migraine with aura Vitamin D deficiency Hypothyroidism Hypocalcemia Hypertension Galactorrhea Fibromyalgia Hyperparathyroidism (CMS/HCC) Depression with anxiety Asthma Anemia Psychogenic nonepileptic seizure Apical lung scarring Meningioma (CMS/HCC) Attention and concentration deficit Current Outpatient Medications on File Prior to Visit Medication Sig Dispense Refill acetaminophen (Tylenol 8 Hour) 650 MG ER tablet TAKE ONE TABLET BY MOUTH EVERY 8 HOURS NEEDED 90tablet 3 Advair HFA 230-21 MCG/ACT inhaler Inhale 2 puffs 2 times daily. . albuterol (2.5 MG/3ML) 0.083% nebulizer solution INHALE ONE AMPULE USING A NEBULIZER EVERY SIX HOURS 90 mL 3 albuterol (ProAir HFA) 108 (90 Base) MCG/ACT inhaler Inhale 2 puffs every 4 (four) hours if needed for wheezing. 18 g 2 aspirin 81 MG EC tablet Take 1 tablet by mouth at bed time. atomoxetine (Strattera) 25 MG capsule Take 1 capsule (25 mg) by mouth 2 times daily. 180 capsule 3 atorvastatin (Lipitor) 10 MG tablet TAKE ONE TABLET BY MOUTH AT BEDTIME 30 tablet 11 azelastine (Astelin) 0.1 % nasal spray Administer 2 sprays into each nostril Once daily as needed for allergies. beta carotene (vitamin A) 3 MG (95490 UT) capsule Take 1 capsule by mouth at bed time. buPROPion XL (Wellbutrin XL) 150 MG 24 hr tablet Take 1 tablet (150 mg) by mouth Once per day. Do not crush, chew, or split. 90 tablet 3 cabergoline (Dostinex) 0.5 MG tablet take 2 tablets by oral route 2 times every week Calcium + Vitamin D3 600-10 MG-MCG tablet TAKE ONE TABLET TWICE DAILY AT NOON AND IN THE EVENING 60tablet 11 cetirizine (ZyrTEC) 10 MG tablet Take 1 tablet (10 mg) by mouth Once per day. 90 tablet 1 cholecalciferol (Vitamin D-3) 1.25 MG (40124 UT) capsule Take 1 capsule by mouth 1 (one) time per week. cholecalciferol VITAMIN D (Vitamin D-3) 50 MCG (2000 UT) capsule TAKE THREE CAPSULES DAILY AT NOON 270 capsule 2 clonazePAM (KlonoPIN) 2 MG disintegrating tablet FOR 30 DAYS TAKE 1 TABLET NEEDED FOR SEIZURE LASTING MORE THAN 2 MINUTES. REPEAT NEEDED AND CALL 911 diphenhydrAMINE (BENADryl) 25 MG tablet Take 1 tablet (25 mg) by mouth 1 (one) time for 1 dose. 1 tablet 0 Easy Touch Lancets 33G/Twist misc TEST BLOOD SUGAR TWICE DAILY 100 each 3 EPINEPHrine (Epipen) 0.3 MG/0.3ML injection syringe Inject into the shoulder, thigh, or buttocks. erenumab (Aimovig) 140 MG/ML injection Inject under the skin. esomeprazole (NexIUM) [address] capsule TAKE ONE CAPSULE EVERY MORNING ONE HOUR BEFORE BREAKFAST, DONOT BREAK, CRUSH, DISSOLVE OR CHEW 90 capsule 3 Estrogens Conjugated (Premarin) 0.625 MG/GM cream Insert 0.5 g into the vagina 3 (three) times a week. 30 g 3 Ferrous Sulfate (iron) 325 (65 Fe) MG tablet TAKE ONE TABLET DAILY AT NOON 30 tablet 11 fluocinolone (Wisacky-Smoothe) 0.01 % external oil APPLY TO THE AFFECTED AREA(S) THREE TIMES DAILY 118.28 mL 3 FREESTYLE LITE test strip USE TO TEST BLOOD SUGAR TWICE DAILY 50 strip 11 haloperidol (Haldol) 5 MG tablet TAKE ONE TABLET EVERY MORNING and TAKE TWO TABLETS EVERY DAY AT BEDTIME 270 tablet 3 hydrOXYzine HCl (Atarax) 25 MG tablet TAKE ONE TABLET BY MOUTH EVERY NIGHT AT BEDTIME 90 tablet 1 ibuprofen 800 MG tablet TAKE 1 TABLET BY MOUTH NEEDED FOR MILD PAIN IN THE MORNING, NOON AND AT BEDTIME 30 tablet 0 indomethacin (Indocin) 50 MG capsule TAKE 1 CAPSULE BY MOUTH WITH BREAKFAST AND EVENING MEAL 60 capsule 0 ketoconazole (NIZOral) 2 % shampoo APPLY TO THE AFFECTED AREA(s) EVERY DAY, LATHER, LEAVE ON FOR 5 MINUTES, THEN RINSE OFF WITH WATER 120 mL 4 ketotifen (Zaditor) 0.025 % ophthalmic solution Administer 1 drop into affected eye(s) every 12 (twelve) hours. magnesium oxide (Mag-Ox) 400 (240 Mg) MG tablet TAKE ONE TABLET AT BEDTIME meclizine (Antivert) 25 MG tablet TAKE ONE TABLET BY MOUTH DAILY NEEDED 30 tablet 0 montelukast (Singulair) 10 MG tablet Take 1 tablet by mouth. Multiple Vitamin (Multivitamin) tablet TAKE ONE TABLET DAILY AT NOON 30 tablet 11 ondansetron ODT (Zofran-ODT) 4 MG disintegrating tablet DISSOLVE ONE TABLET ON TONGUE EVERY 8 HOURSAS NEEDED 30 tablet 3 pyridoxine (Vitamin B-6) 50 MG tablet TAKE 1 TABLET BY MOUTH TWICE DAILY FOR 30 DAYS riboflavin (vitamin B2) 100 mg tablet tablet Take 200 mg by mouth 2 times daily. sertraline (Zoloft) 100 MG tablet Take 1 tablet (100 mg) by mouth in the morning. 90 tablet 3 triamcinolone (Kenalog) 0.1 % cream APPLY A THIN LAYER TO THE AFFECTED AREA(s) ONCE DAILY 80 g 3 TRUEplus Glucose On The Go 4 g chewable tablet chew FOUR tablets NEEDED FOR LOW BLOOD SUGAR (<70mg/dL), REPEAT IN 15 MINUTES if still low verapamil SR (Calan SR) 120 MG ER tablet Take 1 tablet by mouth at bed time. [DISCONTINUED] finasteride (Proscar) 5 MG tablet TAKE 1 TABLET BY MOUTH EVERY DAY 30 tablet 11 [DISCONTINUED] minoxidil (Loniten) 2.5 MG tablet Take 1 tablet (2.5 mg) by mouth in the morning. 30tablet 11 No current facility-administered medications on file prior to visit. Allergies Allergen Reactions Banana Shortness of breath Gadolinium Other reaction(s): facial swelling, itchiness, hive Morphine And Codeine Shortness of breath and Palpitations Peanut-Containing Drug Products Anaphylaxis Shellfish Allergy Anaphylaxis Chicken Allergy Unknown Iodinated Contrast Media Hives Review of Systems Constitutional: Negative for appetite change, chills and diaphoresis. Respiratory: Negative for cough, choking and shortness of breath. Cardiovascular: Positive for leg swelling. Musculoskeletal: Negative for back pain and gait problem. Skin: Hair loss Objective Physical Exam Constitutional: Appearance: Normal appearance. Pulmonary: Effort: Pulmonary effort is normal. Skin: Comments: Decreased hair density throughout the scalp. Scalp non inflammatory,, non scaring, non scaling. Legs: clear. No nodules. Neurological: Mental Status: She is alert. Assessment/Plan Diagnoses and all orders for this visit: Erythema nodosum Comments: Resolved No acute intervention. Androgenetic alopecia Comments: No change. Orders: - minoxidil (Loniten) 2.5 MG tablet; Take 1 tablet (2.5 mg) by mouth Once per day. - finasteride (Proscar) 5 MG tablet; Take 1 tablet (5 mg) by mouth Once per day. Androgenetic alopecia - minoxidil (Loniten) 2.5 MG tablet; Take 1 tablet (2.5 mg) by mouth Once per day. - finasteride (Proscar) 5 MG tablet; Take 1 tablet (5 mg) by mouth Once per day. Varicose veins of left leg with edema Comments: Leg elevation Compression stockings. documented in this encounter Plan of Treatment Upcoming Encounters Date Type Department Care Team (Late st Contact Info) Description 10/10/2024 8:30 AM EST Office Visit [facility] MED & PEDS [address] [place], [place] [phone] Gabbie Cisneros MD [address] [place], [place] [phone] 11/28/2024 9:00 AM EDT Office Visit [facility] & PEDS [address] [place], [place] [phone] Lisa Wayne CNM [address] [place] [address] documented as of this encounter Goals Goal Patient Goal Type Associated Problems Recent Progress Patient-Stated? Author Patient will adhere to medication regimen General No Jerry Shelby, PharmD Help patient manage asthma General No Jerry Shelby, PharmD Note: Reduce use of LUANNE to 2x/week documented as of this encounter Visit Diagnoses Diagnosis Erythema nodosum- Primary Androgenetic alopecia Varicose veins of left leg with edema documented in this encounter Additional Health Concerns Assessment Noted Time PHQ-9 Depression Total Score: 10 024 9:42 AM EDT documented as of this encounter Care Teams Refrigerating Oiler Relationship Specialty Start Date End Date Gabbie Cisneros MD [address] [place], [place] [phone] PCP - General Family Medicine 05/02/18 Saloni Kaminski Ward AssistantChef Saucier 05/19/23 Rosemarie Palmer [address] [place] [address] Nurse Practitioner Neurology 09/18/23 Milad Mcfarland Ward AssistantChef Saucier 10/01/24 documented as of this encounter
--- OUTSIDE RECORDS SUMMARY | 2024-10-09 10:24 | XMS_ITS | Encounter Summary ---
Author Organization [employer] Address [address] [facility] [address] 7t [place] [address] Care Team Providers Care Cell Room Operator Name Role Phone Gabbie Cisneros MD Primary Care Provider [phone] Reason for Visit * Reason Comments Med Refill Encounter Details Date Type Department Care Team ([facility] st Contact Info) Description 04/08/2024 Refill [facility]EDS [address] [place] [address] Gabbie Cisneros MD [address] [place] [address] Social History Tobacco Use Types Packs/Day Years [...] Description 10/10/2024 8:30 AM EST Office Visit [facility] MED & PEDS [address] [place], [place] [phone] Gabbie Cisneros MD [address] [place], [place] [phone] 11/28/2024 9:00 AM EDT Office Visit [facility] MED & PEDS [address] [place], [place] [phone] Lisa Wayne CNM [address] [place] [address] documented as of this encounter Goals Goal [...] documented as of this encounter Care Teams Cell Room Operator Relationship Specialty Start Date End Date Gabbie Cisneros MD [address] [place] [address] PCP - General Family Medicine 9/12/18 Saloni Kaminski Sonar TechnicianPowder Coater 05/19/23 Rosemarie Palmer [address] [place] [address] Nurse Practitioner Neurology 09/18/23 Milad Mcfarland Sonar TechnicianPowder Coater 10/01/24 documented as of this encounter
--- OUTSIDE RECORDS SUMMARY | 2024-10-09 10:24 | XMS_ITS | Encounter Summary ---
Author Organization [employer] Address 75 [facility] 7t [place] [address] Care Team Providers Care Digital Forensics Investigator Name Role Phone Gabbie Cisneros MD Primary Care Provider [phone] Encounter Details Date Type Department Care Team ([facility] st Contact Info) Description 01/18/2024 Orders Only [facility] [address] [place] [address] Provider, MD Marina Social History Tobacco Use [...] Description 10/10/2024 8:30 AM EST Office Visit [facility] MED & PEDS [address] [place] [address] Gabbie Cisneros MD 505 [place] [address] 11/28/2024 9:00 AM EDT Office Visit [facility] MED & PEDS [address] [place], [place] [phone] Lisa Wayne, CN [address] [place] [address] documented as of this encounter Goals Goal Patient Goal Type Associated Problems Recent Progress Patient-Stated? Author Patient will adhere to medication regimen General No Jerry Shelby, PharmD Help patient manage asthma General No Jerry Shelby, PharmD Note: Reduce use of LUANNE to 2x/week documented as of this encounter Procedures Procedure Name Priority Date/Time Associated Diagnosis Comments US SOFT TISSUE HEAD AND NECK (THYROID, PARATHYROID, PAROTID) LEFT Routine 01/18/2024 3:41 PM EDT documented in this encounter Results * US Soft Tissue Heand and Neck (Thyroid, Parathyroid, Parotid)Left (01/18/2024 3:41 PM EDT) Anatomical Region Laterality Modality Head, Neck Ultrasound us Historical Provider MD [place] US PROCEDURES Final R esult documented in this encounter Visit Diagnoses Not on filedocumented in this encounter Additional Health Concerns Assessment Noted Time PHQ-9 Depression Total Score: 7 10/30/19 24 9:31 AM EDT documented as of this encounter Care Teams Digital Forensics Investigator Relationship Specialty Start Date End Date Gabbie Cisneros MD [address] [place] [address] PCP - General Family Medicine 05/02/18 Saloni Kaminski Salvage Engineering TechnicianRail Track Layer 05/19/23 Rosemarie Palmer [address] [place] [address] Nurse Practitioner Neurology 09/18/23 Milad Mcfarland Salvage Engineering TechnicianRail Track Layer 10/01/24 documented as of this encounter
--- OUTSIDE RECORDS SUMMARY | 2024-10-09 10:24 | XMS_ITS | Encounter Summary ---
Author Organization [facility] Address [address] [place] [address] Care Team Providers Care Stitch Bonder Machine Operator Helper Name Role Phone Gabbie Cisneros Primary Care Provider [phone] Reason for Visit * Reason Onset Date Comments PAC Labs Needed 08/28/2024 Dr. Muñiz 08/28/2024 Encounter Details Date Type Department Care Team (Late st Contact Info) Description 08/28/2024 Telephone [facility] [address] [place] [id number] [employer] School Counselor: Pao Valdez Telephone Intake, Staff PAC Labs Needed; Dr. Muñiz Social History Tobacco Use Types Packs/Day Years Used Date Smoking Tobacco: Former Cigarettes Q uit: 2010 Smokeless Tobacco: Never Alcohol Use Standard Drinks/Week Comments Yes 0 (1 standard drink = 0.6 oz pur e alcohol) social Comments Unknown Sex and Gender Information Value Date Recorded Sex Assigned at Female 08/23/2022 4:09 PM EST Legal Sex Female 1:30 PM EDT Gender Identity Female 08/23/2022 4:09 PM EST Sexual Orientation Straight 08/23/2022 4: 09 PM EST Occupation Industry Job Start Date Job End Date not working Not on file Not on file Not on file documented as of this encounter Miscellaneous Notes * Telephone Encounter - Nyla RADHA Ventura - 09/05/2024 12:13 PM EST Patient is aware that will order labs at time of visit * Telephone Encounter - Nyla Ventura LPN - 08/30/2024 3:06 PM EST left with patient to return call to clinic * Telephone Encounter - Zoila Sue NP - 08/30/2024 2:[address] Muñiz can order the labs at the time of the appt Future Appointments Date Time Provider Department Center 11/12/2024 9:00 AM Hermelindo Muñiz DO [facility] * Telephone Encounter - Nyla Ventura LPN - 08/28/2024 4:32 PM EST Can you please advise if patient needs repeat Prolactin levels prior to apt ? Thank you * Telephone Encounter - Joanne Calzada - 08/28/2024 3:51 PM EST Pt has an appt 11/12/[address] Muñiz, looking to see if she should have labs done prior, please advise pt # [phone] documented in this encounter Plan of Treatment Upcoming Encounters Date Type Department Care Team (Late st Contact Info) Description 10/15/2024 9:00 AM EST Follow-Up [facility] [address] [place] [address] [employer] Counselor: Hermelindo Zhang DO [address] [place] [address] documented as of this encounter Visit Diagnoses Not on filedocumented in this encounter Care Teams Stitch Bonder Machine Operator Helper Relationship Specialty Start Date End Date Gabbie Cisneros [address] [place] [address] PCP - General Family Medicine 06/15/22 documented as of this encounter
--- OUTSIDE RECORDS SUMMARY | 2024-10-09 10:24 | XMS_ITS | Encounter Summary ---
Author Organization [employer] Address [address] 7[address] [place] [address] Care Team Providers Care Transportation Engineer Name Role Phone Gabbie Cisneros MD Primary Care Provider [phone] Reason for Visit * Reason Comments Med Refill Encounter Details Date Type Department Care Team ([facility] st Contact Info) Description 09/28/2024 Refill [facility] MED & PEDS [address] [place], [place] [phone] Gabbie Cisneros MD [address] [place] [address] Chronic obstructive pulmonary disease, unspecified COPD type (CMS/HCC) Social History Tobacco Use Types Packs/Day Years [...] Description 10/10/2024 8:30 AM EST Office Visit [facility] MED & PEDS [address] [place] [address] Gabbie Cisneros MD [address] [place] [address] 11/28/2024 9:00 AM EDT Office Visit [facility] MED & PEDS [address] [place] [address] Lisa Wayne, CN [address] [place] [address] documented as of this encounter Goals Goal Patient Goal Type Associated Problems Recent Progress Patient-Stated? Author Patient will adhere to medication regimen General No Dellogevelyn, Jerry, PharmD Help patient manage asthma General No Ramirezlogevelyn, Jerry, PharmD Note: Reduce use of LUANNE to 2x/week documented as of this encounter Visit Diagnoses Diagnosis Chronic obstructive pulmonary disease, unspecified COPD type (CMS/HCC) documented in this encounter Additional Health Concerns Assessment Noted Time PHQ-9 Depression Total Score: 10 024 9:42 AM EDT documented as of this encounter Care Teams Transportation Engineer Relationship Specialty Start Date End Date Gabbie Cisneros MD [address] [place] [address] PCP - General Family Medicine 05/02/18 Saloni Kaminski Bi ConsultantChucking Machine Operator 05/19/23 Rosemarie Palmer [address] [place] [address] Nurse Practitioner Neurology 09/18/23 Milad Mcfarland Bi ConsultantChucking Machine Operator 10/01/24 documented as of this encounter
--- OUTSIDE RECORDS SUMMARY | 2024-10-09 10:24 | XMS_ITS | Encounter Summary ---
Author Organization [employer] Address [address] 7[address] [place] [address] Care Team Providers Care Ocular Care Technologist Name Role Phone Gabbie Cisneros MD Primary Care Provider [phone] Encounter Details Date Type Department Care Team (Latest Contact Info) Description 09/18/2024 Travel Social History Tobacco Use Types Packs/Day [...] Description 10/10/2024 8:30 AM EST Office Visit [facility] PEDS [address] [place] [address] Gabbie Cisneros MD 505 [place] [address] 11/28/2024 9:00 AM EDT Office Visit [facility] MED [facility] PEDS [address] [place], [place] [phone] Lisa Wayne, BEL[place] [address] [place] [address] documented as of this encounter Goals Goal [...] documented as of this encounter Care Teams Ocular Care Technologist Relationship Specialty Start Date End Date Gabbie Cisneros MD [address] [place] [address] PCP - General Family Medicine 05/02/18 Saloni Kaminski BurnisherAccount Consultant 05/19/23 Rosemarie Palmer [address] [place] [address] Nurse Practitioner Neurology 09/18/23 documented as of this encounter
--- OUTSIDE RECORDS SUMMARY | 2024-10-09 10:24 | XMS_ITS | Encounter Summary ---
Author Organization [employer] Address [address] [facility] [place] [facility] 7t [place] [address] Care Team Providers Care Rolling Machine Tender Name Role Phone Gabbie Cisneros MD Primary Care Provider [phone] Encounter Details Date Type Department Care Team (Late st Contact Info) Description 12/18/2023 Orders Only [facility] [address] [place] [address] Provider, MD Marina Social History Tobacco Use [...] Description 10/10/2024 8:30 AM EST Office Visit [facility] MED & PEDS [address] [place] [address] Gabbie Cisneros MD 505 [place] [address] 11/28/2024 9:00 AM EDT Office Visit [facility] MED & PEDS [address] [place] [address] Lisa Wayne, CN [address] [place] [address] documented as of this encounter Goals Goal Patient Goal Type Associated Problems Recent Progress Patient-Stated? Author Patient will adhere to medication regimen General No Jerry Shelby, PharmD Help patient manage asthma General No Jerry Shelby, PharmD Note: Reduce use of LUANNE to 2x/week documented as of this encounter Procedures Procedure Name Priority Date/Time Associated Diagnosis Comments CT CHEST W CONTRAST Routine 12/15/2023 2:21 PM EDT documented in this encounter Results * CT Chest w/ Contrast (12/15/2023 2:21 PM EDT) Anatomical Region Laterality Modality Body, Chest Computed Tomogra phy us Historical Provider MD [place] CT PROCEDURES Final R esult documented in this encounter Visit Diagnoses Not on filedocumented in this encounter Additional Health Concerns Assessment Noted Time PHQ-9 Depression Total Score: 7 10/30/19 24 9:31 AM EDT documented as of this encounter Care Teams Rolling Machine Tender Relationship Specialty Start Date End Date Gabbie Cisneros MD [address] [place] [address] PCP - General Family Medicine 05/02/18 Saloni Kaminski Chair MenderTrapeze Performer 05/19/23 Rosemarie Palmer [address] [place] [address] Nurse Practitioner Neurology 09/18/23 Milad Mcfarland Chair MenderTrapeze Performer 10/01/24 documented as of this encounter
--- OUTSIDE RECORDS SUMMARY | 2024-10-09 10:24 | XMS_ITS | Encounter Summary ---
Author Organization [employer] Address [address] 7[address] [place] [address] Care Team Providers Care Customs Appraiser Name Role Phone Gabbie Cisneros MD Primary Care Provider [phone] Reason for Visit * Reason Onset Date Comments Call Back Request 12/21/2023 Encounter Details Date Type Department Care Team ([facility] st Contact Info) Description 12/21/2023 Telephone [facility] MEDICINE [address] [place] [address] Gabbie Cisneros MD [address] [place] [address] Call Back Request Social History Tobacco Use Types Packs/Day Years [...] encounter Miscellaneous Notes * Telephone Encounter - Wing Janette RN - 12/22/2023 9:27 AM EDT Tc to pt, previous call to pt was in regards to ED follow up for reaction to contrast. Inquired on how pt was doing and she stated she was fine. Pt offered appt to see provider to follow up on ED visit but pt refused. All she requested was for the allergy to contrast to be noted in her chart which it has been and for it to say that one of her other symptoms is shortness of breath. Conveyed that contrast allergy was in chart and pt verbalized understanding and agreement with plan. * Telephone Encounter - Christopher Carnes - 12/21/2023 1:28 PM EDT Tc from patient calling states has a missed call and was told to call [facility] back jingle writer does not see anything noted on the patients chart documented in this encounter Plan of Treatment Upcoming Encounters Date Type Department Care Team (Late st Contact Info) Description 10/10/2024 8:30 AM EST Office Visit [facility] MED & PEDS [address] [facility] [place] [address] Gabbie Cinseros MD [address] [place] [address] 11/28/2024 9:00 AM EDT Office Visit [facility] MED & PEDS [address] [place] [address] Lisa Wayne CNM 230 [place] [address] documented as of this encounter Goals Goal [...] documented as of this encounter Care Teams Customs Appraiser Relationship Specialty Start Date End Date Gabbie Cisneros MD [address] [place] [address] PCP - General Family Medicine 05/02/18 Saloni Kaminski Gas Torch SoldererPlasma Table Operator 05/19/23 Rosemarie Palmer [address] [place] [address] Nurse Practitioner Neurology 09/18/23 Milad Mcfarland Gas Torch SoldererPlasma Table Operator 10/01/24 documented as of this encounter
--- OUTSIDE RECORDS SUMMARY | 2024-10-09 10:24 | XMS_ITS | Encounter Summary ---
Author Organization [employer] Address [address] [facility] [place], [place] [address] Care Team Providers Care Manifold Builder Name Role Phone Gabbie Cisneros MD Primary Care Provider [phone] Reason for Visit * Reason Comments Med Refill Encounter Details Date Type Department Care Team (Late st Contact Info) Description 11/11/2022 Refill [facility] MED & PEDS [address] [place] [address] Gabbie Cisneros MD [address] [place] [address] Chronic obstructive pulmonary disease, unspecified COPD type (CMS/HCC) Social History Tobacco Use Types Packs/Day Years Used Date Smoking Tobacco: Never Smokeless Tobacco: Never PHQ-2 Answer Date Recorded Patient Health Questionnaire-2 Score 4 10/27/2022 Comments Unknown Sex and Gender Information Value [...] Description 10/10/2024 8:30 AM EST Office Visit [facility] MED & PEDS [address] [place] [address] Gabbie Cisneros MD [address] [place] [address] 11/28/2024 9:00 AM EDT Office Visit [facility] MED & PEDS [address] [place] [address] Lisa Wayne CNM 230 [place] [address] documented as of this encounter Visit Diagnoses Diagnosis Chronic obstructive pulmonary disease, unspecified COPD type (CMS/HCC) documented in this encounter Additional Health Concerns Assessment Noted Time PHQ-9 Depression Total Score: 12 023 8:49 AM EST documented as of this encounter Care Teams Manifold Builder Relationship Specialty Start Date End Date Gabbie Cisneros MD [address] [place] [address] PCP - General Family Medicine 05/02/18 Saloni Kaminski Machine TracerScientific Programmer Analyst 05/19/23 Rosemarie Palmer [address] [place] [address] Nurse Practitioner Neurology 09/18/23 Milad Mcfarland Machine TracerScientific Programmer Analyst 10/01/24 documented as of this encounter
--- OUTSIDE RECORDS SUMMARY | 2024-10-09 10:24 | XMS_ITS | Encounter Summary ---
Author Organization [employer] Address [address] 7[address] [place] [address] Care Team Providers Care Supervisor Drying And Winding Name Role Phone Gabbie Cisneros MD Primary Care Provider [phone] Reason for Visit * Reason Onset Date Comments call back 09/23/2022 Encounter Details Date Type Department Care Team ([facility] st Contact Info) Description 09/23/2022 Telephone [facility] MEDICINE [address] [place] [address] Gabbie Cisneros MD [address] [place] [address] call back Social History Tobacco Use Types Packs/Day Years Used Date Smoking Tobacco: Never Smokeless Tobacco: Never PHQ-2 Answer Date Recorded Patient Health Questionnaire-2 Score 3 08/29/2022 Comments Unknown Sex and Gender Information Value Date Recorded Sex Assigned at Female 06/20/2022 10:21 AM EDT Legal Sex Female 10:21 AM EDT Gender Identity Female 06/20/2022 10:21 AM EDT Sexual Orientation Straight 06/20/2022 10 :21 AM EDT documented as of this encounter Miscellaneous Notes * Telephone Encounter - Praveena Gunter RN - 09/26/2022 1:34 PM EST Return call placed to Jackie from [facility] who states pt has been c/o increased depression. Advised pt has an upcoming appt with Andrew Lozano and can discuss further during that appt. Also pt is reporting loss of appetite. Advised to address concern during her upcoming HDF appt with PCP. Also pt's singular is prescribed by an outside provider and should contact their office for refill. Jackie agreed to plan. * Telephone Encounter - Grabiel Adkins - 09/23/2022 3:25 PM EST Tc from jackie with [facility] visiting nurse requesting a call back regarding pt medication and having blood work done Please contact jackie at [phone] documented in this encounter Plan of Treatment Upcoming Encounters Date Type Department Care Team (Late st Contact Info) Description 10/10/2024 8:30 AM EST Office Visit [facility] MED & PEDS [address] [place] [address] Gabbie Cisneros MD 505 [place] [address] 11/28/2024 9:00 AM EDT Office Visit [facility] MED & PEDS [address] [place] [address] Lisa Wayne CNM [address] [place] [address] documented as of this encounter Visit Diagnoses Not on filedocumented in this encounter Additional Health Concerns Assessment Noted Time PHQ-9 Depression Total Score: 9 08/29/19 23 9:49 AM EST documented as of this encounter Care Teams Supervisor Drying And Winding Relationship Specialty Start Date End Date Gabbie Cisneros MD [address] [place] [address] PCP - General Family Medicine 05/02/18 Saloni Kaminski Vocal PerformerRetail Link Analyst 05/19/23 Rosemarie Palmer [address] [place] [address] Nurse Practitioner Neurology 09/18/23 Milad Mcfarland Vocal PerformerRetail Link Analyst 10/01/24 documented as of this encounter
--- OUTSIDE RECORDS SUMMARY | 2024-10-09 10:24 | XMS_ITS | Encounter Summary ---
Author Organization [employer] Address [address] 7t [place] [address] Care Team Providers Care Fleet Dispatch Manager Name Role Phone Gabbie Cisneros MD Primary Care Provider [phone] Reason for Visit * Reason Onset Date Comments Appointment Request 06/12/2024 Encounter Details Date Type Department Care Team ([facility] Contact Info) Description 06/12/2024 Telephone [facility] MED & PEDS [address] [place] [address] Gabbie Cisneros MD [address] [place] [address] Appointment Request Social History Tobacco Use Types Packs/Day [...] encounter Miscellaneous Notes * Telephone Encounter - Rosita Ybarra - 06/12/2024 9:58 AM EDT Tc from pt requesting to r/s no show derm appt 06/11/24. documented in this encounter Plan of Treatment Upcoming Encounters Date Type Department Care Team (Late st Contact Info) Description 10/10/2024 8:30 AM EST Office Visit [facility] MED & PEDS [address] [place] [address] Gabbie Cisneros MD [address] [place] [address] 11/28/2024 9:00 AM EDT Office Visit [facility] MED & PEDS [address] [place] [address] Lisa Wayne CNM [address] [place] [address] documented as of this encounter Goals Goal [...] documented as of this encounter Care Teams Fleet Dispatch Manager Relationship Specialty Start Date End Date Gabbie Cisneros MD [address] [place] [address] PCP - General Family Medicine 05/02/18 Saloni Kaminski Sorter PackerHook Tender 05/19/23 Rosemarie Palmer [address] [place] [address] Nurse Practitioner Neurology 09/18/23 Milad Mcfarland Sorter PackerHook Tender 10/01/24 documented as of this encounter
--- OUTSIDE RECORDS SUMMARY | 2024-10-09 10:24 | XMS_ITS | Encounter Summary ---
Author Organization [employer] Address [address] 7[address] [place] [address] Care Team Providers Care Flaker Tender Name Role Phone Gabbie Cisneros MD Primary Care Provider [phone] Encounter Details Date Type Department Care Team ([facility] st Contact Info) Description 10/16/2023 Telephone [facility]C MED & PEDS [address] [place], [place] [phone] Gabbie Cisneros MD [address] [place] [address] Social History Tobacco Use Types Packs/Day Years Used Date Smoking Tobacco: Never Smokeless Tobacco: Never Depression Answer Date Recorded Patient Health Questionnaire-9 Score 13 10/02/2023 Patient Health Questionnaire-9 Score 13 10/02/2023 Last PHQ-9: Questionnaire Data Not on file 0 10/02/2023 Housing Stability Answer Date Recorded What is [...] Date Recorded Patient Health Questionnaire-2 Score 3 10/02/2023 Comments Unknown Sex and Gender Information Value [...] Office Visit [facility] MED & PEDS [address] [place], [place] [phone] Gabbie Cisneros MD [address] [place] [address] 11/28/2024 9:00 AM EDT Office Visit [facility] MED & PEDS [address] [place] [address] Lisa Wayne, WARD 230 [place] [address] documented as of this encounter Goals Goal [...] Assessment Noted Time PHQ-9 Depression Total Score: 13 024 9:00 AM EST documented as of this encounter Care Teams Flaker Tender Relationship Specialty Start Date End Date Gabbie Cisneros MD [address] [place] [address] PCP - General Family Medicine 05/02/18 Saloni Kaminski Cell Room SupervisorPaste Mixing Supervisor 05/19/23 Rosemarie Palmer [address] [place] [address] Nurse Practitioner Neurology 09/18/23 Milad Mcfarland Cell Room SupervisorPaste Mixing Supervisor 10/01/24 documented as of this encounter
--- OUTSIDE RECORDS SUMMARY | 2024-10-09 10:24 | XMS_ITS | Encounter Summary ---
Author Organization [employer] Address [address] 7[address] [place] [address] Care Team Providers Care Dye Maker Name Role Phone Gabbie Cisneros MD Primary Care Provider [phone] Reason for Visit * Reason Comments Med Refill Encounter Details Date Type Department Care Team ([facility] st Contact Info) Description 04/11/2024 Refill [facility] MED & PEDS [address] [place] [address] Gabbie Cisneros MD [address] [place] [address] Social History Tobacco Use Types Packs/Day Years [...] Description 10/10/2024 8:30 AM EST Office Visit [facility] MED & PEDS [address] [place], [place] [phone] Gabbie Cisneros MD [address] [place], [place] [phone] 11/28/2024 9:00 AM EDT Office Visit [facility] MED & PEDS [address] [place], [place] [phone] Lisa Wayne CNM 230 [place] [address] documented as of this encounter Goals Goal [...] documented as of this encounter Care Teams Dye Maker Relationship Specialty Start Date End Date Gabbie Cisneros MD 230 [place] [address] PCP - General Family Medicine 9/12/18 Saloni Kaminski Electronics TesterPsychiatric Clinician 05/19/23 Rosemarie Palmer [address] [place] [address] Nurse Practitioner Neurology 09/18/23 Milad Mcfarland Electronics TesterPsychiatric Clinician 10/01/24 documented as of this encounter
--- OUTSIDE RECORDS SUMMARY | 2024-10-09 10:24 | XMS_ITS | Encounter Summary ---
Author Organization 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) Major depressive disorder, recurrent episode, severe, specified as with psychotic behavior documented in this encounter Additional Health Concerns Assessment Noted Time PHQ-9 Depression Total Score: 024 9:42 AM EDT documented as of this encounter Care Teams Cloth Napping Supervisor Relationship Specialty Start Date End Date Gabbie Cisneros MD [address] [place] [address] PCP - General Family Medicine 05/02/18 Saloni Kaminski Qa ManagerMultimedia Journalist 05/19/23 Rosemarie Palmer [address] [place] [address] Nurse Practitioner Neurology 09/18/23 documented as of this encounter
--- OUTSIDE RECORDS SUMMARY | 2024-10-09 10:24 | XMS_ITS | Encounter Summary ---
Author Organization [employer] Address [address] [facility] [address] [place] [address] Care Team Providers Care Cap Coverer Name Role Phone Gabbie Cisneros MD Primary Care Provider [phone] Encounter Details Date Type Department Care Team (Late Contact Info) Description 09/29/2022 Abstract [facility] MEDICINE [address] [place] [address] Gabbie Cisneros MD [address] [place] [address] Social History Tobacco Use Types Packs/Day Years Used Date Smoking Tobacco: Never Smokeless Tobacco: Never PHQ-2 Answer Date Recorded Patient Health Questionnaire-2 Score 6 09/29/2022 Comments Unknown Sex and Gender Information Value [...] Description 10/10/2024 8:30 AM EST Office Visit [facility] MED & PEDS [address] [place] [address] Gabbie Cisneros MD [address] [place] [address] 11/28/2024 9:00 AM EDT Office Visit [facility] MED & PEDS [address] [place] [address] Lisa Wayne CNM [address] [place] [address] documented as of this encounter Visit Diagnoses Not on filedocumented in this encounter Additional Health Concerns Assessment Noted Time PHQ-9 Depression Total Score: 15 023 9:30 AM EST documented as of this encounter Care Teams Cap Coverer Relationship Specialty Start Date End Date Gabbie Cisneros MD [address] [place] [address] PCP - General Family Medicine 05/02/18 Saloni Kaminski Pest Control [employer] Classifier 05/19/23 Rosemarie Palmer [address] [place] [address] Nurse Practitioner Neurology 09/18/23 Milad Mcfarland Pest Control [employer] Classifier 10/01/24 documented as of this encounter
--- OUTSIDE RECORDS SUMMARY | 2024-10-09 10:25 | XMS_ITS | Encounter Summary ---
Author Organization [employer] Address [address] [facility] [address] [place] [address] Care Team Providers Care Automated Logistics Specialist Name Role Phone Gabbie Cisneros MD Primary Care Provider [phone] Reason for Visit * Reason Comments Med Refill Encounter Details Date Type Department Care Team (Late st Contact Info) Description 10/13/2022 Refill [facility] MEDICINE [address] [place], [place] [phone] Andrew Lozano FNP Severe recurrent major depression with psychotic features [...] Orientation Straight 06/20/2022 10 :21 AM EDT COVID-19 Exposure Response Date Recorded In the last 10 days, have yo u been in contact with someone who was confirmed or suspected to have Coronavirus/COVID-19? 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) Major depressive disorder, recurrent episode, severe, specified as with psychotic behavior documented in this encounter Additional Health Concerns Assessment Noted Time PHQ-9 Depression Total Score: 15 023 9:30 AM EST documented as of this encounter Care Teams Automated Logistics Specialist Relationship Specialty Start Date End Date Gabbie Cisneros MD [address] [place] [address] PCP - General Family Medicine 05/02/18 Saloni Kaminski Chemical Production TechnicianMasonry Installer 05/19/23 Rosemarie Palmer [address] [place] [address] Nurse Practitioner Neurology 09/18/23 Milad Mcfarland Chemical Production TechnicianMasonry Installer 10/01/24 documented as of this encounter
--- OUTSIDE RECORDS SUMMARY | 2024-10-09 10:25 | XMS_ITS | Referral Summary ---
Author Organization [facility] Address [address] [place] [address] Care Team Providers Care Supervisor Fabrication Name Role Phone Gabbie Cisneros Primary Care Provider [phone] Encounters Date Type Department Care Team Description 08/28/2024 Telephone [facility] [address] [place] [id number] Resource Protection Specialist: Pao Valdez Telephone Intake, Staff PAC Labs Needed; Dr. Muñiz from Last 3 Months Allergies Active Allergy Reactions Criticality Noted Date Comments Avocado Respiratory Distress High 10/07/2022 Banana Respiratory Distress,Dyspnea High 07/30/2022 Cat Dander Hives 10/07/2022 Chicken Meat Extract Unknown 07/26/2022 Codeine Hives 01/18/2012 Other reaction(s): heart beats fast itchy rash Dog Dander Rhinorrhea 10/07/2022 Gadolinium-Containing Contrast Media Hives High 02/18/2015 Other reaction(s): facial swelling, itchiness, hive House Dust Rhinorrhea 10/07/2022 Iodinated Contrast Media Hives 07/26/2022 Levetiracetam Depression 12/19/2023 Morphine Tachycardia High 10/26/2017 anxiety Peanut Anaphylaxis High 10/26/2017 Shellfish Containing Products Respiratory Distress High 07/30/2022 Watermelon Respiratory Distress High 07/30/2022 Medications Pain Relief ES, acetaminophen, 500 mg tablet Take 1,000 mg by mouth every 8 hours as needed. 08/25/19 23 Active Arthritis Pain Relief, acetam, 650 mg 8 hr tablet Take 650 mg by mouth every 8 hours as needed. 11/25/19 22 Active Proventil HFA 90 mcg/actuation inhaler 2 puffs every 4 hours as needed. 09/14/19 23 Active amitriptyline (ELAVIL) 10 mg tablet Take 10-20 mg by mouth nightly. 09/07/19 23 Active ARIPiprazole (ABILIFY) 20 mg tablet TAKE ONE TABLET AT BEDTIME 09/14/19 23 Active aspirin 81 mg EC tablet TAKE ONE TABLET AT BEDTIME 08/25/19 23 Active atorvastatin (LIPITOR) 10 mg tablet Take 10 mg by mouth nightly. 08/25/19 23 Active baclofen (LIORESAL) 10 mg tablet Take 1 tablet by mouth daily. Active FreeStyle [place] Lite meter TEST BLOOD SUGAR DIRECTED 06/24/20 Active Freestyle Lite test strips TEST BLOOD SUGAR TWICE DAILY 09/14/19 23 Active All Day Allergy, cetirizine, 10 mg tablet Take 10 mg by mouth daily as needed. 08/25/19 23 Active clonazePAM (KlonoPIN) 2 mg disintegrating tablet Dissolve 2 mg in the mouth once a day. 08/25/19 23 Active cyclobenzaprine (FLEXERIL) 5 mg tablet TAKE 1 TO 2 TABLETS BY MOUTH THREE TIMES DAILY FOR 14 DAYS NEEDED FOR MUSCLE SPASM 04/05/20 22 Active EPINEPHrine (EPIPEN) 0.3 mg/0.3 mL injection syringe SMARTSIG:IM As Directed 08/17/20 22 Active Aimovig Autoinjector 140 mg/mL auto-injector SMARTSI Milligram(s) SUB-Q Once a Month 09/23/19 23 Active esomeprazole (NexIUM) 20 mg capsule Take 1 capsule by mouth daily. 02/03/20 22 Active Premarin 0.625 mg/gram vaginal cream SMARTSI.5 Gram(s) Vaginal Twice a Week 08/25/19 23 Active finasteride (PROSCAR) 5 mg tablet Take 5 mg by mouth once a day. 08/25/19 23 Active fluocinolone (DERMA-SMOOTHE) 0.01 % external oil Apply topically to the affected area 3 times a day. 09/16/19 23 Active hydrocortisone 1% cream 11/17/19 22 Active hydrOXYzine HCL (ATARAX) 25 mg tablet TAKE ONE TABLET AT BEDTIME 09/14/19 23 Active yctydychypmr-Gj-oj on-minerals tablet Take 1 tablet by mouth. 05/27/20 22 Active TRUEplus Glucose 4 gram chewable tablet chew FOUR tablets NEEDED FOR LOW BLOOD SUGAR (<70mg/dL), REPEAT IN 15 MINUTES if still low 08/17/[address] (CYMBALTA) 30 mg capsule TAKE ONE CAPSULE EVERY MORNING 09/14/19 23 Active loratadine (CLARITIN) 10 mg tablet Take 10 mg by mouth once a day. 08/25/19 23 Active ketorolac (ACULAR) 0.5% ophthalmic solution Instill 1 drop into affected eye three times a day as directed Start 2 days before surgery. Taper as directed. 08/25/19 23 Active ketoconazole (NIZORAL) 2% shampoo Apply topically to the affected area daily. 02/04/20 22 Active ketotifen (ZADITOR) 0.025 % ophthalmic solution Instill 1 drop into affected eye(s) every 12 (twelve) hours. 06/13/20 22 Active TRUEplus Lancets lancet 33 gauge TEST BLOOD SUGAR TWICE DAILY 09/14/19 23 Active magnesium oxide (MAG-OX) 400 mg (241.3 mg mag) tablet TAKE ONE TABLET AT BEDTIME 09/14/19 23 Active Vitamin D3 50 mcg (2,000 unit) capsuleIndications :Vitamin D deficiency Take 3 capsules (6,000 Units total) by mouth once a day. 270 capsule 3 10/13/19 23 Active Additional Information Patient taking differently: 1 capsuleoral Daily, Reported on 12/19/2023 haloperidoL (HALDOL) 5 mg tablet TAKE ONE TABLET EVERY MORNING and TAKE TWO TABLETS EVERY DAY AT BEDTIME 11/15/19 24 Active calcium carbonate-vitamin D3 600 mg-10 mcg (400 unit) per tablet TAKE ONE TABLET TWICE DAILY AT NOON AND IN THE EVENING 09/26/19 24 Active ZOLMitriptan (ZOMIG) 5 mg tablet Take 5 mg by mouth. 06/04/20 22 Active vitamin A 3,000 mcg (10,000 unit) capsule Take 10,000 Units by mouth once a day. Active verapamil SR (CALAN SR) 120 mg tablet SMARTSI Tablet(s) By Mouth Every Night Active triamcinolone acetonide (KENALOG) 0.1% cream SMARTSIG:Sparin gly Topical Daily Active SUMAtriptan (IMITREX) 50 mg tablet Take 50 mg by mouth every 2 hours as needed. Active sertraline (ZOLOFT) 100 mg tablet Take 100 mg by mouth daily. 10/28/19 23 Active rOPINIRole (REQUIP) 0.25 mg tablet Take 0.25 mg by mouth. Active riboflavin (VITAMIN B2) 100 mg tablet Take 100 mg by mouth 2 times daily. 09/18/19 23 Active pyridoxine (VITAMIN B6) 50 mg tablet SMARTSI Tablet(s) By Mouth Twice Daily Active montelukast (SINGULAIR) 10 mg tablet SMARTSI Tablet(s) By Mouth Every Night Active minoxidiL (LONITEN) 2.5 mg tablet TAKE ONE TABLET EVERY MORNING 10/17/19 24 Active hydroCHLOROthiazid e (HYDRODIURIL) 25 mg tablet Take 25 mg by mouth once a day. 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 Hyperparathyroidism 10/07/2022 Hypertension 10/07/2022 Hypothyroidism 10/07/2022 Depressive disorder 10/07/2022 Vitamin D deficiency 10/07/2022 Hypocalcemia 10/07/2022 Galactorrhea 10/07/2022 Parathyroid adenoma 09/25/2022 Arthritis of left knee 01/14/2021 Intestinal malabsorption following gastrectomy 0 09/03/2019 Migraine with aura 03/12/2019 Pituitary microadenoma 10/26/2017 Joint pain 10/31/2013 Type 2 diabetes mellitus without complication (C MS/HCC) 01/18/2012 Social History Tobacco Use Types Packs/Day Years Used Date Smoking Tobacco: Former Cigarettes Q uit: 2010 Smokeless Tobacco: Never Tobacco Cessation:Counseling Given: Not Answered Alcohol Use Standard Drinks/Week Comments Yes 0 [...] Sign Reading Time Taken Comments Blood Pressure 106/69 03/29/2024 1:53 PM EDT Pulse 69 03/29/2024 1:53 PM EDT Temperature - - Respiratory Rate - - Oxygen Saturation - - Inhaled Oxygen Concentration - - Weight 83.5 kg (184 lb 1.4 oz) 03/29/2024 1:53 P M EDT Height 160 cm (5' 2.99 ) 03/29/2024 1:53 PM EDT Body Mass Index 32.62 03/29/2024 1:53 PM EDT Plan of Treatment Upcoming Encounters Date Type Department Care Team (Late st Contact Info) Description 10/15/2024 9:00 AM EST Follow-Up [facility] [address] [place] [phone] Resource Protection Specialist: Hermelindo Zhang DO [address] [place] [phone] Procedures * Due to [place] state law, this organization might not be sharing negative HIV tests. Procedure Name Priority Date/Time Associated Diagnosis Comments PROLACTIN Routine 07/09/2024 10:31 AM EST Pituitary microadenoma (HCC) BASIC METABOLIC PANEL Routine 03/29/2024 3:51 PM EDT Pituitary microadenoma (HCC) HEMOGLOBIN A1C Routine 10/07/2022 2:01 PM EST Type 2 diabetes mellitus without complication, without long-term current use of insulin (CMS/HCC) (HCC) from Last 3 Months or Most Recently Relevant to Health Maintenance Results * Due to [facility] law, this organization might not be sharing negative HIV tests. * Prolactin (07/09/2024 10:31 AM EST) Pathologist [facility] Prolactin 4.0 ng/mL 07/09/2024 9:02 PM EST [facility] Comment: ?Reference Range Females ?Non- ?3.0-30.0 ? 10.0-209.0 ?Postmenopausal ?2.0-20.0 ? Blood Structure of peripheral vein / Unknown 07/09/2024 10:31 AM EST 07/09/2024 8:10 PM EST Narrative [facility] - 07/09/2024 9:10 PM EST FASTING:YES Zoila Sue GRAPHICS MANAGER LAB BLOOD ORDERABLES Final Result Performing Organization Address City/State/[facility] Co de Phone Number [facility] [address] [facility] 3rd Floor, [place] [address], [facility] [address] [place] [address] * Basic Metabolic Panel (03/29/2024 3:51 PM EDT) Pathologist [facility] NA 141 135 - 145 mmol/L 03/29/2024 5:29 PM EDT [facility] K 4.0 3.5 - 5.3 mmol/L 03/29/2024 5:29 PM EDT [facility] Cl 104 98 - 107 mmol/L 03/29/2024 5:29 PM EDT [facility] CO2 27 24 - 32 mmol/L 03/29/2024 5:29 PM EDT [facility] BUN 11 7 - 23 mg/dL 03/29/2024 5:29 PM EDT [facility] Creatinine 0.65 0.50 - 1.20 mg/dL 03/29/2024 5:29 PM EDT [facility], [facility] Glucose 98 65 - 99 mg/dL 03/29/2024 5:29 PM EDT [facility] Calcium 8.7 8.6 - 10.5 mg/dL 03/29/2024 5:29 PM EDT [facility] Anion Gap 10 5 - 15 03/29/2024 5:29 PM EDT [facility] eGFR >90 >=60 mL/min/1. 73m2 03/29/2024 5:29 PM EDT [facility] Comment:The estimated glomer ular filtration rate (eGFR) is calculated using a new formula developed by the NKF-ASN task force to eliminate race-based correction factors. The new formula uses serum/plasma creatinine, age, and gender to determine eGFR. A value below 60mls/min might indicate kidney disease and will be flagged. For additional information, see Stafford et al, Am J Kidney Dis. 2021;79(2):268- 288, A Unifying Approach for GFR estimation: Recommendations of the NKF-ASN Task Force on Reassessing the Inclusion of Race in Diagnosing Kidney Disease . Blood Structure of peripheral vein / Unknown Venipuncture / Unknown 03/29/2024 3:51 PM EDT 03/29/2024 4:43 PM EDT us Zoila Sue GRAPHICS MANAGER LAB BLOOD ORDERABLES Final Result [facility] [address] [place] [address], [place] * Hemoglobin A1c (10/07/2022 2:01 PM EST) Hemoglobin A1C 4.9 <5.7 % of total Hgb 10/08/2022 6:38 AM EST [facility] Comment: For the purpose of screening for the presence of diabetes: <5.7% ? Consistent with the absence of diabetes 5.7-6.4% ?Consistent with increased risk for diabetes ?(prediabetes) > or =6.5% ??Consistent with diabetes This assay result is consistent with a decreased risk of diabetes. Currently, no consensus exists regarding use of hemoglobin A1c for diagnosis of diabetes in children. According to [place] Diabetes Association (ADA) guidelines, hemoglobin A1c <7.0% represents optimal control in non- diabetic patients. Different metrics may apply to specific patient populations. Standards of Medical Care in Diabetes(ADA). ?? eAG (MG/DL) 94 mg/dL 10/08/2022 6:38 AM EST [facility] eAG (MMOL/L) 5.2 mmol/L 10/08/2022 6:38 AM [facility] Blood Structure of peripheral vein / Unknown Venipuncture / Unknown 10/07/2022 2:01 PM EST 10/07/2022 2:33 PM EST [facility] MICHAEL VILLA - 10/08/2022 6:38 AM EST [facility] Received Date: Zoila Sue GRAPHICS MANAGER LAB BLOOD ORDERABLES Final Result MICHAEL VILLA [address] [facility] 3rd Floor, [place] [address], [place] [phone] [employer] [facility] [address] [facility] [address], [place] [address], [place] [phone] from Last 3 Months or Most Recently Relevant to Health Maintenance Insurance [place] [address] Care Teams Supervisor Fabrication Relationship Specialty Start Date End Date Gabbie Cisneros [address] [place] [address] PCP - General Family Medicine 06/15/22
--- OUTSIDE RECORDS SUMMARY | 2024-10-09 10:25 | XMS_ITS | Clinical Summary ---
Author Organization [facility] Address [address] [place] [address] Care Team Providers Care Food Supervisor Name Role Phone Gabbie Cisneros Primary Care Provider [phone] Allergies Active Allergy Reactions Criticality Noted Date [...] 1 tablet by mouth daily. Active FreeStyle [place] Lite meter TEST BLOOD SUGAR DIRECTED 06/24/20 22 Active Freestyle Lite test strips TEST BLOOD [...] ONE TABLET AT BEDTIME 09/14/19 23 Active xwfjjodrkzzu-Hn-nu on-minerals tablet Take 1 tablet by mouth. 05/27/20 22 Active TRUEplus Glucose 4 gram chewable tablet chew FOUR tablets NEEDED FOR LOW BLOOD SUGAR (<70mg/dL), REPEAT IN 15 MINUTES if still low 08/17/[address] (CYMBALTA) 30 mg capsule [...] affected eye(s) every 12 (twelve) hours. 06/13/20 Active TRUEplus Lancets lancet 33 gauge TEST [...] diabetes mellitus without complication (C MS/HCC) 01/18/2012 Encounters Date Type Department Care Team Description 08/28/2024 Telephone [facility] [address] [place] [id number] Fur Storage Clerk: Pao Valdez Telephone Intake, Staff PAC Labs Needed; Dr. Muñiz from Last 3 Months Family History Medical History Relation Name Comments Cancer Father Stomach cancer Father Arthritis Mother Dementia Mother Migraines Mother Osteoporosis Mother Hypothyroidism Other 1 Caleb age 12, dx ag e 4-5 Other Other 2 Verito pituitary adeno ma Hyperparathyroidism Neg Hx Relation Name Status Comments Father Mother Alive Other 1 Caleb Alive Other 2 Verito Alive Social History Tobacco Use Types Packs/Day Years Used Date Smoking Tobacco: Former Cigarettes Q uit: 2011 Smokeless Tobacco: Never Tobacco Cessation:Counseling Given: Not [...] Info) Description 10/15/2024 9:00 AM EST Follow-Up [facility] [address] [place] [phone] Fur Storage Clerk: Hermelindo Zhang DO [address] [place] [phone] Health Maintenance Due Date Last Done Comments Cologuard 1970 Colonoscopy 1970 HIV Screening 1970 HPV and Pap Smear 1969 Hepatitis C Screening 1969 Sigmoidoscopy 1969 Ophthalmology Exam 12/10/1979 Urine Microalbumin 12/10/1979 Mammogram 2009 Pneumococcal Vaccine: 50+ Ye ars (2 of 2 - PCV) 04/16/2019 04/16/2018, 02/05/2018, 03/12/2013, Additional history exists Pneumococcal Vaccine: Pediat viky (0-5 Years) and At-Risk Patients (6-50 Years) (2 of 2 - PCV) 04/16/2019 04/16/2018, 02/05/2018, 03/12/2013, Additional history exists CT Lung Cancer Screening (Baseline) 12/10/2019 Hemoglobin A1C 03/26/2024 09/26/2023, 09/21, 08/23/2022 COVID-19 Vaccine (2023-2 5 season) 2024 11/12/2021, 01/01/2021, 12/11/2020 Influenza Vaccine (#1) 2024 , 05/11/2022, 07/02/2021, Additional history exists Colon Cancer Screening 08/07/2024 FOBT / Fit Test 08/07/2024 08/07/2023, 07/18/2022 Alcohol/Substance Use Screening 08/21/2024 Depression Evaluation 08/21/2024 Social Drivers of Health Gabriela ual Screening 08/21/2024 Basic Metabolic Panel 03/29/2025 03/29/2024 , 01/22/2024, 07/25/2023, Additional history exists Cervical Cancer Screening 12/11/2026 Pap Smear 12/11/2026 12/12/2023, 04/09/2018 DTaP,Tdap,and Td Vaccines (3 - Td or Tdap) 04/16/2028 04/16/2018, 03/12/2013 RSV Vaccine (60+ years old a nd patients) (1 - 1-dose 75+ series) 2044 Hepatitis B Vaccines Completed 04/15/2014, 12/18/2013, 11/14/2013 Zoster Vaccines Completed 09/10/2020, 07/09/2020 Procedures * Due to [place] state law, this organization might not be [...] to Health Maintenance Results * Due to [place] state law, this organization might not be sharing negative HIV tests. * Prolactin (07/09/2024 10:31 AM EST) Prolactin 4.0 ng/mL 07/09/2024 9:02 PM EST [facility] Comment: ?Reference Range Females ?Non- ?3.0-30.0 ? 10.0-209.0 ?Postmenopausal ?2.0-20.0 ? Blood Structure of peripheral vein / Unknown 07/09/2024 10:31 AM EST 07/09/2024 8:10 PM EST Narrative [facility] - 07/09/2024 9:10 PM EST FASTING:YES us Zoila Sue NP LAB BLOOD ORDERABLES Final Result [facility] [address] [facility] [address]rd [address], [place] [address], [place] [phone] [facility] [address] [place] [address] * Basic Metabolic Panel (03/29/2024 3:51 PM EDT) NA 141 135 - 145 mmol/L 03/29/2024 5:29 PM EDT [facility] K 4.0 3.5 - 5.3 mmol/L 03/29/2024 5:29 PM EDT [facility] Cl 104 98 - 107 mmol/L 03/29/2024 5:29 PM EDT [facility] CO2 27 24 - 32 mmol/L 03/29/2024 5:29 PM EDT [facility] BUN 11 7 - 23 mg/dL 03/29/2024 5:29 PM EDT [facility] Creatinine 0.65 0.50 - 1.20 mg/dL 03/29/2024 5:29 PM EDT [facility] Glucose 98 65 - 99 mg/dL 03/29/2024 5:29 PM EDT [facility] Calcium 8.7 8.6 - 10.5 mg/dL 03/29/2024 5:29 PM EDT [facility] Anion Gap 10 5 - 15 03/29/2024 5:29 PM EDT [facility] eGFR >90 >=60 mL/min/1. 73m2 03/29/2024 5:29 PM EDT [facility] Comment:The estimated glomer ular filtration rate (eGFR) is calculated using a new formula developed by the NKF-ASN task force to eliminate race-based correction factors. The new formula uses serum/plasma creatinine, age, and gender to determine eGFR. A value below 60mls/min might indicate kidney disease and will be flagged. For additional information, see Nydia et al, Am J Kidney Dis. 2021;79(2):268- 288, A Unifying Approach for GFR estimation: Recommendations of the NKF-ASN Task Force on Reassessing the Inclusion of Race in Diagnosing Kidney Disease . Blood Structure of peripheral vein / Unknown Venipuncture / Unknown 03/29/2024 3:51 PM EDT 03/29/2024 4:43 PM EDT us Zoila Sue NP LAB BLOOD ORDERABLES Final Result [facility] [address] [place] [address], [place] * Hemoglobin A1c (10/07/2022 2:01 PM EST) Hemoglobin A1C 4.9 <5.7 % of total Hgb 10/08/2022 6:38 AM EST [facility] Comment: For the purpose of screening for the presence of diabetes: <5.7% ? Consistent with the absence of diabetes 5.7-6.4% ?Consistent with increased risk for diabetes ?(prediabetes) > or =6.5% ??Consistent with diabetes This assay result is consistent with a decreased risk of diabetes. Currently, no consensus exists regarding use of hemoglobin A1c for diagnosis of diabetes in children. According to [place] Diabetes Association (ADA) guidelines, hemoglobin A1c <7.0% represents optimal control in non- diabetic patients. Different metrics may apply to specific patient populations. Standards of Medical Care in Diabetes(ADA). ?? eAG (MG/DL) 94 mg/dL 10/08/2022 6:38 AM EST [facility] eAG (MMOL/L) 5.2 mmol/L 10/08/2022 6:38 AM EST [facility] Blood Structure of peripheral vein / Unknown Venipuncture / Unknown 10/07/2022 2:01 PM EST 10/07/2022 2:33 PM EST Narrative [facility] - 10/08/2022 6:38 AM EST [facility] Received Date:[id number] us Zoila Sue NP LAB BLOOD ORDERABLES Final Result [facility] [address] [facility] 3rd [address], [place] [address], [employer] [facility] [address] [facility] [address], [place] [address], from Last 3 Months or Most Recently Relevant to Health Maintenance Insurance [facility] Care Teams Food Supervisor Relationship Specialty Start Date End Date Amelia Gabbie [address] [place] [address] PCP - General Family Medicine 06/15/22
--- OUTSIDE RECORDS SUMMARY | 2024-10-09 10:25 | XMS_ITS | Encounter Summary ---
Author Organization [employer] Address [address] [facility] [place], [place] [address] Care Team Providers Care Refinery Operator Alkylation Name Role Phone Gabbie Cisneros MD Primary Care Provider Encounter Details Date Type Department Care Team (Latest Contact Info) Description 08/19/2022 Orders Only [facility] [address] [place] [address] Rosalva Hidalgo MD [address] [place], [place] [phone] Hypercholesterolemia (Primary Dx) Social History Tobacco Use Types Packs/Day Years Used Date Smoking Tobacco: Never Assessed PHQ-2 Answer Date Recorded Patient Health Questionnaire-2 Score 2 07/28/2022 Comments Unknown Sex and Gender Information Value [...] Description 10/10/2024 8:30 AM EST Office Visit [facility] [address] [place], [place] [phone] Gabbie Cisneros MD [address] [place], [place] [phone] 11/28/2024 9:00 AM EDT Office Visit [facility] [address] [place], [place] [phone] Lisa Wayne CNM [address] [place] [address] documented as of this encounter Visit Diagnoses Diagnosis Hypercholesterolemia- Primary Pure hypercholesterolemia documented in this encounter Care Teams Refinery Operator Alkylation Relationship Specialty Start Date End Date Gabbie Cisneros MD [address] [place] [address] PCP - General Family Medicine 05/02/18 Saloni Kaminski Piercing ArtistAssistant Director Of Public Works 05/19/23 Rosemarie Palmer [address] [place] [address] Nurse Practitioner Neurology 09/18/23 Milad Mcfarland Piercing ArtistAssistant Director Of Public Works 10/01/24 documented as of this encounter
--- OUTSIDE RECORDS SUMMARY | 2024-10-09 10:25 | XMS_ITS | Encounter Summary ---
Author Organization [employer] Address [address] [facility] [address] [place] [address] Care Team Providers Care Auto Design Detailer Name Role Phone Gabbie Cisneros MD Primary Care Provider [phone] Encounter Details Date Type Department Care Team (Latest Contact Info) Description 10/08/2024 Travel Social History Tobacco Use Types Packs/Day [...] Description 10/10/2024 8:30 AM EST Office Visit [facility] [address] [place], [place] [phone] Gabbie Cisneros MD [address] [place] [address] 11/28/2024 9:00 AM EDT Office Visit [facility] [address] [place] [address] Lisa Wayne, WARD [address] [place] [address] documented as of this encounter Goals Goal [...] documented as of this encounter Care Teams Auto Design Detailer Relationship Specialty Start Date End Date Gabbie Cisneros MD [address] [place] [address] PCP - General Family Medicine 05/02/18 Saloni Kaminski Juvenile Detention OfficerManager Diabetes 05/19/23 Rosemarie Palmer [address] [place] [address] Nurse Practitioner Neurology 09/18/23 Milad Mcfarland Juvenile Detention OfficerManager Diabetes 10/01/24 documented as of this encounter
--- OUTSIDE RECORDS SUMMARY | 2024-10-09 10:25 | XMS_ITS | Encounter Summary ---
Author Organization [employer] Address [address] [place] [address] Care Team Providers Care Coin Dealer Name Role Phone Gabbie Cisneros MD Primary Care Provider [phone] Encounter Details Date Type Department Care Team (Late st Contact Info) Description 07/08/2024 Orders Only [facility] [address] [place] [address] Provider, MD Marina Social History Tobacco Use [...] [facility] [address] [place] [address] Gabbie Cisneros MD [address] [place] [address] 11/28/2024 9:00 AM EDT Office Visit [facility] [address] [place], [place] [phone] Lisa Wayne, CN [address] [place] [address] documented as of this encounter Goals Goal Patient Goal Type Associated Problems Recent Progress Patient-Stated? Author Patient will adhere to medication regimen General No Jerry Shelby, PharmD Help patient manage asthma General No Jerry Shelby, PharmD Note: Reduce use of LUANNE to 2x/week documented as of this encounter Procedures Procedure Name Priority Date/Time Associated Diagnosis Comments CT SINUS WO CONTRAST Routine 07/29/2024 7:58 AM EST HM MAMMOGRAPHY Routine 07/05/2024 9:46 AM EST documented in this encounter Results * CT Sinus w/o Contrast (07/29/2024 7:58 AM EST) Anatomical Region Laterality Modality Computed Tomogra phy 07/29/2024 7:58 AM EST Narrative 09/04/2024 11:29 AM EST ? [facility] ?[address] ?[place] [address] ? CT Scan Report ? Signed ? Patient: Fernandez,Radha ?MR#: [id number] ?? [id number] ? : 1970 ?Acct:[id number] ? Age/Sex: 53 / F ?ADM Date: 07/29/24 ? Loc: HO.CT ? Attending Dr: Betzaida Solis MD ? Ordering Physician: Betzaida Solis MD ?? Date of Service: 07/29/24 ?? Procedure(s): CT sinus wo IV con ?? Accession Number(s): [id number] ? cc: Betzaida Solis MD; Gabbie Cisneros MD ? Report Number: ?? [id number]: Total DLP = ?? 99.00 mGy-cm ?? EXAMINATION: ?? CT MAXILLOFACIAL WITHOUT CONTRAST ? CLINICAL INFORMATION: ?? Chronic sinusitis. ? COMPARISON: ?? None available. ? TECHNIQUE: ?? Multidetector helical imaging was performed in the axial plane with ?? generation of coronal and sagittal reformatted images. ? This CT examination was performed using dose optimization techniques as ?? appropriate, variously including the following: ?? *Automated exposure control. ?? *Adjustment of mA and/or kV according to patient size (this includes ?? techniques or standardized protocols for targeted exams where dose is ?? matched to indication/reason for exam; i.e. extremities or head). ?? *Use of iterative reconstruction technique. ? DLP: ?? ICD-9 mGy-cm ? FINDINGS: ?? FRONTAL SINUSES AND DRAINAGE PATHWAYS: The frontal sinuses are clear. ?? The frontoethmoidal recesses are patent. ? MAXILLARY SINUSES AND DRAINAGE PATHWAYS: Minimal mucosal thickening of ?? the maxillary sinuses. The maxillary ostia and infundibula are patent. ? ETHMOID SINUSES: Minimal mucosal thickening of the ethmoid air cells. ?? The ethmoid roofs appear symmetric and intact. ? SPHENOID SINUS AND DRAINAGE PATHWAYS: The sphenoid sinus is clear. The ?? sphenoethmoidal recesses are patent. ? NASAL PASSAGE: Minimal mucosal thickening of the nasal passages. ?? Moderate leftward nasal septal deviation with spurring. ? ADDITIONAL RELEVANT FINDINGS: The lamina papyracea are intact. No ?? demonstrated abnormalities of the orbits. The carotid canals are ?? normally covered by bone. No significant maxillary periapical disease. ?? The temporomandibular joints are normal. The mastoid air cells and ?? middle ear cavities remain well aerated. Limited evaluation of the ?? intracranial structures without significant abnormalities. ? CT/CT sinus wo IV con ?? IMPRESSION: ?? 1. ??Minimal sinonasal mucosal disease. ?? 2. ??Moderate leftward nasal septal deviation with spurring. ? Electronically signed by: ??Nelson Evans DO ??09/04/2024 11:26 AM EST RP ? Dictated By: ?Vinod Evans DO ? Signed By: ?<Electronically signed by Vinod Evans DO in [facility]> ? 09/04/24 1126 ? DD/ 0758 ? TD/TT: 07/29/24 0802 ? Foot And Ankle Surgeon: MANNY ? Procedure Note Debby, Image - 09/04/[address] [place] [address] [address] Scan Report Signed Patient: Darron Fernandez#: [id number] : 1970Acct:[id number] Age/Sex: 53 / FADM Date: 07/29/24 Loc: HO.CT Attending Dr: Betzaida Solis MD Ordering Physician: Betzaida Solis MD Date of Service: 07/29/24 Procedure(s): CT sinus wo IV con Accession Number(s): [id number] cc: Betzaida Solis MD; Gabbie Cisneros MD Report Number: [id number]: Total DLP = 99.00 mGy-cm EXAMINATION: CT MAXILLOFACIAL WITHOUT CONTRAST CLINICAL INFORMATION: Chronic sinusitis. COMPARISON: None available. TECHNIQUE: Multidetector helical imaging was performed in the axial plane with generation of coronal and sagittal reformatted images. This CT examination was performed using dose optimization techniques as appropriate, variously including the following: *Automated exposure control. *Adjustment of mA and/or kV according to patient size (this includes techniques or standardized protocols for targeted exams where dose is matched to indication/reason for exam; i.e. extremities or head). *Use of iterative reconstruction technique. DLP: ICD-9 mGy-cm FINDINGS: FRONTAL SINUSES AND DRAINAGE PATHWAYS: The frontal sinuses are clear. The frontoethmoidal recesses are patent. MAXILLARY SINUSES AND DRAINAGE PATHWAYS: Minimal mucosal thickening of the maxillary sinuses. The maxillary ostia and infundibula are patent. ETHMOID SINUSES: Minimal mucosal thickening of the ethmoid air cells. The ethmoid roofs appear symmetric and intact. SPHENOID SINUS AND DRAINAGE PATHWAYS: The sphenoid sinus is clear. The sphenoethmoidal recesses are patent. NASAL PASSAGE: Minimal mucosal thickening of the nasal passages. Moderate leftward nasal septal deviation with spurring. ADDITIONAL RELEVANT FINDINGS: The lamina papyracea are intact. No demonstrated abnormalities of the orbits. The carotid canals are normally covered by bone. No significant maxillary periapical disease. The temporomandibular joints are normal. The mastoid air cells and middle ear cavities remain well aerated. Limited evaluation of the intracranial structures without significant abnormalities. CT/CT sinus wo IV con IMPRESSION: 1. Minimal sinonasal mucosal disease. 2. Moderate leftward nasal septal deviation with spurring. Electronically signed by: Nelson Evans DO 09/04/2024 11:26 AM EST Dictated By: Vinod Evans DO Signed By: <Electronically signed by Vinod Evans DO in [facility]> 09/04/24 1126 DD/ 0758 TD/TT: 07/29/24 0802 Foot And Ankle Surgeon: MANNY [facility] External Provider IMG CT PROCEDURES Final Result * Hm Mammography (07/05/2024 9:46 AM EST) Anatomical Region Laterality Modality Other Historical Provider HEALTH MAINTENANCE Final Result documented in this encounter Visit Diagnoses Not on filedocumented in this encounter Additional Health Concerns Assessment Noted Time PHQ-9 Depression Total Score: 10 024 9:42 AM EDT documented as of this encounter Care Teams Coin Dealer Relationship Specialty Start Date End Date Gabbie Cisneros MD [address] [place] [address] PCP - General Family Medicine 05/02/18 Saloni Kaminski Radiator CleanerSumo Wrestler 05/19/23 Rosemarie Palmer [address] [place] [address] Nurse Practitioner Neurology 09/18/23 Milad Mcfarland Radiator CleanerSumo Wrestler 10/01/24 documented as of this encounter
--- OUTSIDE RECORDS SUMMARY | 2024-10-09 10:25 | XMS_ITS ---
Author Name CRISP Organization Unknown Results Test Name/Text Value Interpretation Date Range Source CREAT SERPL MCNC 0.6mg/dL Normal [id number] 0.5 - 1 [facility] CALCIUM SERPL [facility]NC 9.4mg/dL Normal [id number] 8.4 - 10.2 [facility] SODIUM SERPL SCNC 139mmol/L Normal [id number] 135 - 145 [facility] ANION GAP SERPL SC[facility] 7mmol/L Normal [id number] 5 - 14 [facility] Glomerular filtration rate/1.73 sq M. predicted 107 Normal [id number] 60 - [facility] HCO3 SER SCNC 28mmol/L Normal [id number] 24 - 32 [facility] GLUCOSE SERPL MCNC 85mg/dL Normal [id number] 70 - 199 [facility] BUN SERPL MCNC 13mg/dL Normal [id number] 7 - 17 [facility] CHLORIDE SERPL SCNC 104mmol/L Normal [id number] 98 - 107 [facility] POTASSIUM SERPL SC[facility] 3.7mmol/L Normal [id number] 3.5 - 5.1 [facility] MAGNESIUM SERPL MCNC 1.8mg/dL Normal [id number] 1.7 - 2.8 [facility] PLATELET NO. BLD AUTO 257K/uL Normal [id number] 150 - 450 [facility] RBC NO. BLD AUTO 3.97M/uL Below low normal [id number] 4.2 - 5.4 [facility] NUCLEATED RBC 0% Normal [id number] 0 - 1 [facility] LYMPHOCYTES NO. BLD AUTO 1.2K/uL Normal [id number] 1 - 3.2 [facility] EOSINOPHIL NO. BLD AUTO 0.1K/uL Normal [id number] 0 - 0.5 [facility] MCH RBC QN AUTO 30.5pg Normal [id number] 25 - 33 [facility] MCHC RBC AUTO MCNC 34.1g/dL Normal [id number] 32 - 36 [facility] MONOCYTES NFR BLD AUTO 6.8% Normal [id number] 2 - 12 [facility] IMMATURE GRANULOCYTE, ABSOLUTE 0.01k/uL Normal [id number] - 0.1 [facility] LYMPHOCYTES NFR BLD AUTO 32.7% Normal 20 - 48 [facility] EOSINOPHIL NFR BLD AUTO 3.4% Normal [id number] 0 - 6 [facility] HGB BLD MCNC 12.1g/dL Below low normal 12.5 - 16 [facility] NEUTROPHILS NO. BLD AUTO 2K/uL Normal 1.8 - 7.8 [facility] WBC NO. BLD AUTO 3.6K/uL Below low normal 4 - 10.5 [facility] BASOPHILS NFR BLD AUTO 0.3% Normal 0 - 2 [facility] MONOCYTES NO. BLD AUTO 0.2K/uL Normal 0 - 0.8 [facility] MCV RBC AUTO 89.4fL Normal [id number] 78 - 100 [facility] NEUTR[facility]IL[facility] NFR BLD AUTO 56.5% Normal 44 - 74 [facility] IMMATURE GRANULOCYTE, PERCENT 0.3% Normal 0 - 1 [facility] BASOPHILS IN BLOOD BY AUTOMATED COUNT 0K/uL Normal [id number] 0 - 0.2 [facility] PMV BLD AUTO 9.8fL Normal 7.4 - 11.4 [facility] RDW RBC AUTO RTO 14.1% Normal 12.1 - 16.2 [facility] HCT VFR BLD AUTO 35.5% Below low normal [id number] 37 - 47 [facility] Clarity Ur Refract.auto CLEAR Normal [id number] [facility] Prot Ur Ql Strip.auto NEGATIVE Normal - [facility] Glucose Ur Ql Strip.auto NEGATIVE Normal - [facility] Nitrite Ur Ql Strip.auto NEGATIVE Normal - [facility] Hgb Ur Ql Strip.auto NEGATIVE Normal - [facility] Ketones Ur Ql Strip.auto NEGATIVE Normal [id number] - [facility] Leukocyte esterase Ur Ql Strip.auto NEGATIVE Normal [id number] - [facility] Sp Gr Ur Strip.auto 1.015 Normal [id number] 1.005 - 1.03 [facility] pH Ur Strip.auto 6.5 Normal [id number] 4.5 - 8 [facility] SPECIMEN SOURCE XXX URINE CLEAN CATCH Normal [id number] [facility] Service [facility] XXX-Imp Cepheid GeneXpert (RT-PCR) [facility] Normal [id number] [facility] FLUBV RNA Nph Ql BLANCA+non-probe NEGATIVE Normal [id number] [facility] RSV RNA Nph Ql BLANCA+non-probe NEGATIVE Normal [id number] [facility] FLUAV RNA Nph Ql BLANCA+non-probe NEGATIVE Normal [id number] [facility] SPECIMEN SOURCE XXX NASOPHARYNGEAL Normal [id number] [facility] BNP BLD MCNC 5pg/mL Normal [id number] 0 - 100 [facility] CREAT SERPL MCNC 0.8mg/dL Normal [id number] 0.5 - 1 [facility] CALCIUM SERPL MCNC 8.4mg/dL Normal [id number] 8.4 - 10.2 [facility] SODIUM SERPL SCNC 137mmol/L Normal [id number] 135 - 145 [facility] ANION GAP SERPL SCNC 9mmol/L Normal [id number] 5 - 14 [facility] Glomerular filtration rate/1.73 sq M. predicted 88 Normal [id number] 60 - [facility] HCO3 SER SCNC 26mmol/L Normal [id number] 24 - 32 [facility] GLUCOSE SERPL MCNC 106mg/dL Normal [id number] 70 - 199 [facility] BUN SERPL MCNC 20mg/dL Above high normal [id number] 7 - 17 [facility] CHLORIDE SERPL SCNC 102mmol/L Normal [id number] 98 - 107 [facility] POTASSIUM SERPL SCNC 3.8mmol/L Normal [id number] 3.5 - 5.1 [facility] Service [facility] XXX-Imp Cepheid GeneXpert (RT-PCR) [facility] Normal [id number] [facility] FLUBV RNA Nph Ql BLANCA+non-probe NEGATIVE Normal [facility] FLUAV RNA Nph Ql BLANCA+non-probe NEGATIVE Normal [facility] PLATELET NO. BLD AUTO 266K/uL Normal 150 - 450 [facility] RBC NO. BLD AUTO 3.83M/uL Below low normal 4.2 - 5.4 [facility] NUCLEATED RBC 0% Normal 0 - 1 [facility] LYMPHOCYTES NO. BLD AUTO 2K/uL Normal 1 - 3.2 [facility] EOSINOPHIL NO. BLD AUTO 0.2K/uL Normal 0 - 0.5 [facility] MCH RBC QN AUTO 32.1pg Normal 25 - 33 [facility] MCHC RBC AUTO MCNC 35.4g/dL Normal 32 - 36 [facility] MONOCYTES NFR BLD AUTO 6.3% Normal 2 - 12 [facility] IMMATURE GRANULOCYTE, ABSOLUTE 0.01k/uL Normal - 0.1 [facility] LYMPHOCYTES NFR BLD AUTO 39.9% Normal 20 - 48 [facility] EOSINOPHIL NFR BLD AUTO 3.7% Normal 0 - 6 [facility] HGB BLD MCNC 12.3g/dL Below low normal 12.5 - 16 [facility] NEUTROPHILS NO. BLD AUTO 2.4K/uL Normal 1.8 - 7.8 [facility] WBC NO. BLD AUTO 4.9K/uL Normal 4 - 10.5 [facility] BASOPHILS NFR BLD AUTO 0.8% Normal 0 - 2 [facility] MONOCYTES NO. BLD AUTO 0.3K/uL Normal 0 - 0.8 [facility] MCV RBC AUTO 90.6fL Normal 78 - 100 [facility] NEUTROPHILS NFR BLD AUTO 49.1% Normal 44 - 74 [facility] IMMATURE GRANULOCYTE, PERCENT 0.2% Normal 0 - 1 [facility] BASOPHILS IN BLOOD BY AUTOMATED COUNT 0K/uL Normal 0 - 0.2 [facility] PMV BLD AUTO 9.5fL Normal 7.4 - 11.4 [facility] RDW RBC AUTO RTO 12.5% Normal 12.1 - 16.2 [facility] HCT VFR BLD AUTO 34.7% Below low normal 37 - 47 [facility] SPECIMEN SOURCE XXX NASOPHARYNGEAL Normal [facility] History of Medication Use Medication Directions Dispensed Refills Start Date End Date [facility] amitriptyline (ELAVIL) tablet 25 mg Take 25 mg by mouth every night at bedtime. active ketotifen (ZADITOR) 0.025 % ophthalmic solution 1 Drop daily. active vitamin A 3,000 mcg (10,000 unit) capsule TAKE ONE CAPSULE EVERY MORNING 06/23/2022 active hydrocortisone (ANUSOL-HC) 2.5 % rectal cream Apply 1 Inch topically 2 times daily. 07/13/2020 active predniSONE (DELTASONE) tablet 60 mg 60 mg, Oral, Once, On 03/24/24 at 1145, For 1 dose 03/24/2024 03/24/20 completed buPROPion SR (WELLBUTRIN SR) 150 mg 12 hr tablet 150 mg 2 times daily. 11/20/2017 active aspirin 81 mg chewable tablet Take 81 mg by mouth daily. active ondansetron (ZOFRAN) 8 mg tablet Take 1 Tab by mouth every 8 hours as needed for Nausea. 04/10/2020 active ferrous sulfate 325 mg (65 mg elemental iron) tablet Take 1 tablet by mouth daily. 07/13/2020 active cyclobenzaprine (FLEXERIL) 10 MG tablet Take 1 tablet (10 mg total) by mouth 3 (three) times a day as needed for up to 15 doses. 04/02/2023 06/14/20 aborted atorvastatin (LIPITOR) 10 mg tablet Take 10 mg by mouth daily. active acetaminophen (TYLENOL) tablet 975 mg 975 mg, Oral, Once, On 03/24/24 at 1145, For 1 dose 03/24/2024 03/24/20 completed hydroCHLOROthiazide (HYDRODIURIL) tablet 25 mg Take 25 mg by mouth daily. active calcium carbonate-vitamin D (Oyster Shell Calcium-Vit D3) 500 mg-5 mcg (200 unit) per tablet TAKE 1 TABLET BY MOUTH DAILY 09/01/2022 active ketoconazole (NIZORAL) 2 % shampoo Apply topically 2 (two) times a week. Apply to damp skin, lather, leave on 5 minutes, and rinse active predniSONE (DELTASONE) tablet 20 mg Take 3 tablets (60 mg total) by mouth daily for 1 day, THEN 2 tablets (40 mg total) daily for 2 days, THEN 1 tablet (20 mg total) daily for 2 days. 06/14/2024 06/19/20 active ketoconazole (NIZORAL) 2 % shampoo Apply topically daily as needed. active SUMAtriptan (IMITREX) 50 MG tablet Take 50 mg by mouth every 2 (two) hours as needed for migraine. active albuterol HFA (PROAIR HFA ; PROVENTIL HFA ; VENTOLIN HFA) 90 mcg/actuation inhaler Inhale 2 Puffs into the lungs every 6 hours as needed for Cough, Wheezing or Shortness of Breath for up to 90 days. 10/26/2017 active loratadine (CLARITIN) tablet 10 mg 10 mg, Oral, Daily, First dose on 03/24/24 at 1145 03/24/2024 active omeprazole (PriLOSEC) 20 MG capsule Take 20 mg by mouth daily. active DULoxetine (Drizalma Sprinkle) 20 mg capsule, delayed rel sprinkle Take 20 mg by mouth 2 times daily. 07/13/2020 active topiramate (TOPAMAX) 100 mg tablet TAKE 1 TABLET BY MOUTH DAILY 05/26/2023 active loratadine (CLARITIN) 10 mg tablet Take 10 mg by mouth daily. 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 2018-01-24 ProblemAct [facility] Fibromyalgia active 2024-06-07 ProblemAct [facility] Severely overweight active 2019-12-03 ProblemAct [facility] Migraine with aura active 2019-03-12 ProblemAct [facility] Depression with anxiety active 2024-06-07 ProblemAct [facility] Anemia active 2024-06-07 ProblemAct [facility] Intestinal malabsorption following gastrectomy active 2019-09-03 ProblemAct [facility] Pituitary microadenoma active 2017-10-26 ProblemAct [facility] Lumbar radiculopathy active EncounterDiagnosisA ct [facility] Cervical radiculopathy [facility] Anemia active EncounterDiagnosisAct [facility] Class 1 obesity due to excess calories with serious comorbidity and body mass index (BMI) of 33.0 to 33.9 in adult active 2024-06-07 ProblemAct [facility] Hypertension active 2024-06-[address] [facility] Controlled diabetes mellitus type II without complication active 2024-06-07 ProblemAct [facility] Sciatica active EncounterDiagnosisAct [facility] Immunizations Vaccine Date Source Lot Number Status [employer] (ages 12 & older) DEISI S-CoV-2 COVID-19, mRNA, LNP-S, adelina-sucrose, preservative free 11/12/2021 [facility] [id number] completed Pneumococcal polysaccharide 23 valent (Pneumovax 23) 2yo and older 02/05/2018 [facility] [id number] com pleted [facility] SARS-CoV-2 COVID-19, mRNA, LNP-S, preservative free 12/11/2020 [facility] [id number] completed [employer] SARS-CoV-2 COVID-19, mRNA, LNP-S, preservative free 01/01/2021 [facility] [id number] completed
--- OUTSIDE RECORDS SUMMARY | 2024-10-09 10:25 | XMS_ITS | Encounter Summary ---
Author Organization [employer] Address [address] [facility] [address] [place] [address] Care Team Providers Care Construction Controller Name Role Phone Gabbie Cisneros MD Primary Care Provider [phone] Reason for Visit * Reason Onset Date Comments ED F/U 07/27/2022 Encounter Details Date Type Department Care Team ([facility] st Contact Info) Description 07/27/2022 Telephone [facility] MED & PEDS [address], [place] [phone] Gabbie Cisneros MD [address] [place] [address] ED F/U Social History Tobacco Use Types Packs/Day Years [...] encounter Miscellaneous Notes * Telephone Encounter - Ariel Jose RN - 08/04/2022 11:20 AM EST Call placed to pt. Per pt, seen at ED on 07/26/22 and 07/30/22. Pt Dx with RSV. Per pt, experiencingrunny nose and congestion. Denies fever, chill, nausea, vomiting, diarrhea, CP, SOB. RN provided ptwith home care recs. Advised pt continue to monitor and follow up sooner if symptoms persist or worsen. Pt agrees. * Telephone Encounter - Cynthia Davy - 07/27/2022 1:38 PM EST Margy, a nurse calling from [facility] to report ED visit on 07/26/22 at [facility]. Sandra states not knowing the reason of the ED visit. Sandra was advised will forward to team nurse for follow up. Margy's contact number [phone]. Please contact pt for follow up at [phone] documented in this encounter Plan of Treatment Upcoming Encounters Date Type Department Care Team ([facility] st Contact Info) Description 10/10/2024 8:30 AM EST Office Visit [facility] MED & PEDS [address] [place] [address] Gabbie Cisneros MD [address] [place] [address] 11/28/2024 9:00 AM EDT Office Visit [facility] MED & PEDS [address] [place] [address] Lisa Wayne, [facility] [address] [place] [address] documented as of this encounter Visit Diagnoses Not on filedocumented in this encounter Care Teams Construction Controller Relationship Specialty Start Date End Date Gabbie Cisneros MD [address] [place] [address] PCP - General Family Medicine 05/02/18 Saloni Kaminski Drawer Hardware WorkerLegal Research Analyst 05/19/23 Rosemarie Palmer [address] [place] [address] Nurse Practitioner Neurology 09/18/23 Milad Mcfarland Drawer Hardware WorkerLegal Research Analyst 10/01/24 documented as of this encounter
--- OUTSIDE RECORDS SUMMARY | 2024-10-09 10:25 | XMS_ITS | Encounter Summary ---
Author Organization [employer] Address [address] [facility] [address] [place] [address] Care Team Providers Care Tourist Camp Attendant Name Role Phone Gabbie Cisneros MD Primary Care Provider [phone] Reason for Visit * Reason Onset Date Comments Nurse Triage 06/24/2024 Encounter Details Date Type Department Care Team ([facility] st Contact Info) Description 06/24/2024 Telephone C [facility] MED [facility] PEDS [address] [place] [address] Gabbie Cisneros MD [address] [place] [address] Nurse Triage Social History Tobacco Use Types Packs/Day Years [...] * Telephone Encounter - Rosita Ybarra - 06/24/2024 2:07 PM EST Symptom: Hot Flashes Outcome: Schedule an appointment to be seen within 3 days Reason: This is the only possible outcome for this symptom The caller accepted this outcome. documented in this encounter Plan of Treatment Upcoming Encounters Date Type Department Care Team (Late st Contact Info) Description 10/10/2024 8:30 AM EST Office Visit [facility] MED & PEDS [address] [place] [address] Gabbie Cisneros MD [address] [place] [address] 11/28/2024 9:00 AM EDT Office Visit [facility] MED & PEDS [address] [place] [address] Lisa Wayne CNM [address] [place] [address] documented as of this encounter Goals Goal [...] documented as of this encounter Care Teams Tourist Camp Attendant Relationship Specialty Start Date End Date Gabbie Cisneros MD [address] [place] [id number] PCP - General Family Medicine 05/02/18 Saloni Kaminski Lamp WirerManager Internal 05/19/23 Rosemarie Palmer [address] [place] [address] Nurse Practitioner Neurology 09/18/23 Milad Mcfarland Lamp WirerManager Internal 10/01/24 documented as of this encounter
--- OUTSIDE RECORDS SUMMARY | 2024-10-09 10:25 | XMS_ITS | Encounter Summary ---
Author Organization [employer] Address [address] [place] [address] Care Team Providers Care Geothermal Powerplant Mechanic Helper Name Role Phone Gabbie Cisneros MD Primary Care Provider [phone] Reason for Visit * Reason Comments Med Refill Encounter Details Date Type Department Care Team ([facility] st Contact Info) Description 06/30/[address] 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) Social History Tobacco Use Types Packs/Day Years Used Date Smoking Tobacco: Never Smokeless Tobacco: Never Depression Answer Date Recorded Patient Health Questionnaire-9 Score 9 05/30/2023 Housing Stability Answer Date Recorded What is [...] Date Recorded Patient Health Questionnaire-2 Score 3 05/30/2023 Comments Unknown Sex and Gender Information Value Date Recorded Sex Assigned at Female 06/20/2022 10:21 AM EDT Legal Sex Female 10:21 AM EDT Gender Identity Female 06/20/2022 10:21 AM EDT Sexual Orientation Straight 06/20/2022 10 :21 AM EDT documented as of this encounter Miscellaneous Notes * Telephone Encounter - Gabbie Cisneros MD - 07/03/2023 9:33 AM EST I do not prescribe this medication documented in this encounter Plan of Treatment Upcoming Encounters Date Type Department Care Team (Late st Contact Info) Description 10/10/2024 8:30 AM EST Office Visit [facility] MED & PEDS [address] [place] [address] Gabbie Cisneros MD [address] [place] [address] 11/28/2024 9:00 AM EDT Office Visit [facility] MED & PEDS [address] [place], [place] [phone] Lisa Wayne CNM [address] [place] [address] documented as of this encounter Goals Goal [...] Noted Time PHQ-9 Depression Total Score: 9 05/30/20 23 9:42 AM EDT documented as of this encounter Care Teams Geothermal Powerplant Mechanic Helper Relationship Specialty Start Date End Date Gabbie Cisneros MD [address] [place] [address] PCP - General Family Medicine 05/02/18 Saloni Kaminski Wine Steward/StewardessGreensman 05/19/23 Rosemarie Palmer [address] [place] [address] Nurse Practitioner Neurology 09/18/23 Milad Mcfarland Wine Steward/StewardessGreensman 10/01/24 documented as of this encounter
--- OUTSIDE RECORDS SUMMARY | 2024-10-09 10:25 | XMS_ITS | Encounter Summary ---
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 Name Role Phone Gabbie Cisneros MD Primary Care Provider [phone] Reason for Visit * Reason Onset Date Comments Appointment Request 06/24/2024 Encounter Details Date Type Department Care Team ([facility] Contact Info) Description 06/24/2024 Telephone [facility] CHC MED & PEDS [address] [place] [address] Gabbie Cisneros MD [address] [place] [address] Appointment Request Social History Tobacco Use Types [...] Telephone Encounter - Rosita Ybarra - 06/24/2024 2:22 PM EST Tc from pt would like to r/s derm appt documented in this encounter Plan of Treatment Upcoming Encounters Date Type Department Care Team (Late st Contact Info) Description 10/10/2024 8:30 AM EST Office Visit [facility] MED & PEDS [address] [place] [address] Gabbie Cisneros MD [address] [place] [address] 11/28/2024 9:00 AM EDT Office Visit [facility] MED & PEDS [address] [place] [address] Lisa Wayne, WARD [address] [place] [address] documented as of this encounter Goals Goal [...] documented as of this encounter Care Teams Truck Farmer Relationship Specialty Start Date End Date Gabbie Cisneros MD [address] [place] [id number] PCP - General Family Medicine 05/02/18 Saloni Kaminski Core Drilling SupervisorChannel Marketing Coordinator 05/19/23 Rosemarie Palmer [address] [place] [address] Nurse Practitioner Neurology 09/18/23 Milad Mcfarland Core Drilling SupervisorChannel Marketing Coordinator 10/01/24 documented as of this encounter
--- OUTSIDE RECORDS SUMMARY | 2024-10-09 10:25 | XMS_ITS | Clinical Summary ---
Author Organization [employer] Address 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 Director Name Role Phone Gabbie Cisneros MD Primary Care Provider [phone] Allergies Active Allergy Reactions Criticality Noted Date Comments Banana Shortness of breath High 09/25/2022 Chicken Allergy Unknown 07/26/2022 Gadolinium High 02/18/2015 Other reaction(s): facial swelling, itchiness, hive Iodinated Contrast Media Hives 07/26/2022 Morphine And Codeine Shortness of breath,Palpitations High 01/22/2024 Peanut-Containing Drug Products Anaphylaxis High 10/26/2017 Shellfish Allergy Anaphylaxis High 10/26/2017 Medications * This document contains information received from the source organization and may not represent a complete record from that organization. beta carotene (vitamin A) 3 MG (02168 UT) capsule Take 1 capsule by mouth at bed time. Active verapamil SR (Calan SR) 120 MG ER tablet Take 1 tablet by mouth at bed time. Active montelukast (Singulair) 10 MG tablet Take 1 tablet by mouth. Active ketotifen (Zaditor) 0.025 % ophthalmic solution Administer 1 drop into affected eye(s) every 12 (twelve) hours. Active erenumab (Aimovig) 140 MG/ML injection Inject under the skin. Active EPINEPHrine (Epipen) 0.3 MG/0.3ML injection syringe Inject into the shoulder, thigh, or buttocks. Active cabergoline (Dostinex) 0.5 MG tablet take 2 tablets by oral route 2 times every week Active aspirin 81 MG EC tablet Take 1 tablet by mouth at bed time. Active albuterol (ProAir HFA) 108 (90 Base) MCG/ACT inhalerIndication s:Mild asthma without complication, unspecified whether persistent Inhale 2 puffs every 4 (four) hours if needed for wheezing. 18 g 2 023 Active TRUEplus Glucose On The Go 4 g chewable tablet chew FOUR tablets NEEDED FOR LOW BLOOD SUGAR (<70mg/dL), REPEAT IN 15 MINUTES if still low 022 Active magnesium oxide (Mag-Ox) 400 (240 Mg) MG tablet TAKE ONE TABLET AT BEDTIME 023 Active pyridoxine (Vitamin B-6) 50 MG tablet TAKE 1 TABLET BY MOUTH TWICE DAILY FOR 30 DAYS 023 Active riboflavin (vitamin B2) 100 mg tablet tablet Take 200 mg by mouth 2 times daily. 023 Active Advair HFA 230-21 MCG/ACT inhaler Inhale 2 puffs 2 times daily. . 023 Active meclizine (Antivert) 25 MG tabletIndications :Vertigo TAKE ONE TABLET BY MOUTH DAILY NEEDED 30 tablet 023 Active azelastine (Astelin) 0.1 % nasal spray Administer 2 sprays into each nostril Once daily as needed for allergies. 023 Active cholecalciferol (Vitamin D-3) 1.25 MG (68738 UT) capsule Take 1 capsule by mouth 1 (one) time per week. 023 Active clonazePAM (KlonoPIN) 2 MG disintegrating tablet FOR 30 DAYS TAKE 1 TABLET NEEDED FOR SEIZURE LASTING MORE THAN 2 MINUTES. REPEAT NEEDED AND CALL [phone] Active diphenhydrAMINE (BENADryl) 25 MG tablet Take 1 tablet (25 mg) by mouth 1 (one) time for 1 dose. 1 tablet 024 Active atorvastatin (Lipitor) 10 MG tabletIndications :Hypercholesterol emia TAKE ONE TABLET BY MOUTH AT BEDTIME 30 tablet 11 024 Active Estrogens Conjugated (Premarin) 0.625 MG/GM cream Insert 0.5 g into the vagina 3 (three) times a week. 30 g 3 024 Active esomeprazole (NexIUM) [address] capsule TAKE ONE CAPSULE EVERY MORNING ONE HOUR BEFORE BREAKFAST, DO NOT BREAK, CRUSH, DISSOLVE OR CHEW 90 capsule 3 024 Active buPROPion XL (Wellbutrin XL) 150 MG 24 hr tablet Take 1 tablet (150 mg) by mouth Once per day. Do not crush, chew, or split. 90 tablet 3 024 Active atomoxetine (Strattera) 25 MG capsule Take 1 capsule (25 mg) by mouth 2 times daily. 180 capsule 3 024 Active haloperidol (Haldol) 5 MG tablet TAKE ONE TABLET EVERY MORNING and TAKE TWO TABLETS EVERY DAY AT BEDTIME 270 tablet 3 024 Active sertraline (Zoloft) 100 MG tabletIndications :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) Take 1 tablet (100 mg) by mouth in the morning. 90 tablet 3 024 Active FREESTYLE LITE test stripIndications: Type 2 diabetes mellitus without complication, without long-term current use of insulin (CMS/HCC) USE TO TEST BLOOD SUGAR TWICE DAILY 50 strip 11 024 Active cetirizine (ZyrTEC) 10 MG tablet Take 1 tablet (10 mg) by mouth Once per day. 90 tablet 1 024 Active hydrOXYzine HCl (Atarax) 25 MG tabletIndications :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) TAKE ONE TABLET BY MOUTH EVERY NIGHT AT BEDTIME 90 tablet 1 024 Active Easy Touch Lancets 33G/Twist miscIndications:P rolactinoma (CMS/HCC) TEST BLOOD SUGAR TWICE DAILY 100 each 3 024 Active ketoconazole (NIZOral) 2 % shampoo APPLY TO THE AFFECTED AREA(s) EVERY DAY, LATHER, LEAVE ON FOR 5 MINUTES, THEN RINSE OFF WITH WATER 120 mL 4 024 Active indomethacin (Indocin) 50 MG capsuleIndication s:Erythema nodosum TAKE 1 CAPSULE BY MOUTH WITH BREAKFAST AND EVENING MEAL 60 capsule 024 Active acetaminophen (Tylenol 8 Hour) 650 MG ER tablet TAKE ONE TABLET BY MOUTH EVERY 8 HOURS NEEDED 90 tablet 3 024 Active cholecalciferol VITAMIN D (Vitamin D-3) 50 MCG (2000 UT) capsule TAKE THREE CAPSULES DAILY AT NOON 270 capsule 2 11/12/2 024 Active fluocinolone ([place]) 0.01 % external oilIndications:Be nign neoplasm of pituitary gland (CMS/HCC) APPLY TO THE AFFECTED AREA(S) THREE TIMES DAILY 118.28 mL 3 Active triamcinolone (Kenalog) 0.1 % creamIndications: Eczema, unspecified type APPLY A THIN LAYER TO THE AFFECTED AREA(s) ONCE DAILY 80 g 3 Active ibuprofen 800 MG tablet TAKE 1 TABLET BY MOUTH NEEDED FOR MILD PAIN IN THE MORNING, NOON AND AT BEDTIME 30 tablet Active albuterol (2.5 MG/3ML) 0.083% nebulizer solutionIndicatio ns:Unspecified asthma with (acute) exacerbation INHALE ONE AMPULE USING A NEBULIZER EVERY SIX HOURS 90 mL 3 Active Calcium + Vitamin D3 600-10 MG-MCG tabletIndications :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) TAKE ONE TABLET TWICE DAILY AT NOON AND IN THE EVENING 60 tablet Active Ferrous Sulfate (iron) 325 (65 Fe) MG tabletIndications :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) TAKE ONE TABLET DAILY AT NOON 30 tablet Active Multiple Vitamin (Multivitamin) tabletIndications :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) TAKE ONE TABLET DAILY AT NOON 30 tablet 025 Active ondansetron ODT (Zofran-ODT) 4 MG disintegrating tabletIndications :Chronic obstructive pulmonary disease, unspecified COPD type (CMS/HCC) DISSOLVE ONE TABLET ON TONGUE EVERY 8 HOURS NEEDED 30 tablet Active minoxidil (Loniten) 2.5 MG tabletIndications :Androgenetic alopecia Take 1 tablet (2.5 mg) by mouth Once per day. 30 tablet 025 2025 Active finasteride (Proscar) 5 MG tabletIndications :Androgenetic alopecia Take 1 tablet (5 mg) by mouth Once per day. 30 tablet Active Calcium + Vitamin D3 600-10 MG-MCG tabletIndications :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) TAKE ONE TABLET BY MOUTH TWICE DAILY AT NOON AND IN THE EVENING 60 tablet 11 024 2024 Discontinued Multiple Vitamin (Multivitamin) tabletIndications :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) TAKE ONE TABLET BY MOUTH AT NOON 30 tablet 11 024 2024 Discontinued minoxidil (Loniten) 2.5 MG tabletIndications :Androgenetic alopecia Take 1 tablet (2.5 mg) by mouth in the morning. 30 tablet 11 024 2024 Discontinued(R eorder (will not trigger notification to Pharmacy)) finasteride (Proscar) 5 MG tabletIndications :Androgenetic alopecia TAKE 1 TABLET BY MOUTH EVERY DAY 30 tablet 11 024 2024 Discontinued(R eorder (will not trigger notification to Pharmacy)) ondansetron ODT (Zofran-ODT) 4 MG disintegrating tabletIndications :Chronic obstructive pulmonary disease, unspecified COPD type (CMS/HCC) DISSOLVE ONE TABLET ON TONGUE EVERY 8 HOURS NEEDED 30 tablet 3 024 2024 Discontinued Active Problems Problem Noted Date Diagnosed Date Attention and concentration deficit 10/02/2023 Assessment & Plan (01/30/2024 11:02 AM EDT): Continue Strattera 25 mg BID. Assessment & Plan (10/30/2023 10:18 AM EDT): Difficulty concentrating, inability to read books or the bible or attend restoration is very distressing to her. Reports lifetime history of attention problems starting in childhood. Had what sounds like neuropsych testing and was prescribed meds in childhood and as an adult had Adderall from prior psychiatrist. Today again provider advised patient that I did not thing Adderall would be appropriate for her: it is a controlled substance, potentially habit forming, can increase her anxiety. Although she has stated she is not taking Phentermine from Dr. Verduzco, PDMP shows recent fill. She did not notice significant improvement with Strattera 18 mg, but did not have problems with it. Will now increase to Strattera 25 mg BID. F/u with me in 1 month. She agrees with the plan. Assessment & Plan (10/02/2023 9:45 AM EST): Difficulty concentrating, inability to read books or the bible or attend restoration is very distressing to her. Reports lifetime history of attention problems starting in childhood. Had what sounds like neuropsych testing and was prescribed meds in childhood and as an adult had Adderall from prior psychiatrist. She is still taking Phentermine from Dr. Verduzco, although tapering down, so stimulant medication would not be appropriate. Will start Strattera 18 mg once daily x 1 week then BID. F/u with me in 4 weeks. She agrees with the plan. Psychogenic nonepileptic seizure 09/18/2023 Assessment & Plan (09/18/2023 1:30 PM EST): Patient reports having a Neurologist, and states having an appointment scheduled for next month. Will follow up with PCP. Apical lung scarring 09/18/2023 Assessment & Plan (09/18/2023 1:29 PM EST): Patient that presented visit with concerns of apical lung scarring will be referred to Pulmonology. Meningioma 09/18/2023 Assessment & Plan (09/18/2023 1:30 PM EST): Patient with Hx of meningioma will be sent for imaging for further evaluation. -Chest CT Vitamin D deficiency 10/07/2022 Hypothyroidism 10/07/2022 Hypocalcemia 10/07/2022 Hypertension 10/07/2022 Galactorrhea 10/07/2022 Fibromyalgia 10/07/2022 Hyperparathyroidism 10/07/2022 Depression with anxiety 10/07/2022 Asthma 10/07/2022 Anemia 10/07/2022 Pituitary neoplasm 09/25/2022 Parathyroid adenoma 09/25/2022 Severe recurrent major depression with psychotic features 07/27/2022 Assessment & Plan (01/30/2024 11:06 AM EDT): Plus OCD with irritability when things re dirty or out of place. Although she has an extensive trauma history since childhood, does not appear to have flashbacks or hypervigilance associated with PTSD. Recently diagnosed with Psychogenic Seizures and will be under care of Psychiatrist in [place]. Mood is depressed, and pt requests resumption of Bupropion, will have Bupropion XL 150 mg in the morning. Continue Sertraline 100 mg daily. Although hallucinations are not totally controlled, pt prefers not to change dosing of Haldol 5 mg in am and 10 mg at bedtime. Since this provider will be retiring, we will not schedule F/U with me. She will F/U with new providers in [place]. For any issues or concerns, contact [facility]. All her questions were answered and I have wished her well. She agrees with the plan. Assessment & Plan (10/30/2023 10:15 AM EDT): Plus OCD with irritability when things re dirty or out of place. Although she has an extensive trauma history since childhood, does not appear to have flashbacks or hypervigilance associated with PTSD. Presented with visual hallucinations (shadows, her son-in-law) and auditory hallucinations (voices). Pt recently experienced new onset of seizures which have been determined to be non- epileptic. Anxious and depressed, struggling with interpersonal stressors. Hallucinations (auditory, visual, tactile) again bothering her. Will increase to Haloperidol 5 mg in the morning and 10 mg at bedtime. Had increased anxiety with Sertraline 150 mg, improved again with decrease to Sertraline 100 mg daily and will continue. Encouraged to call for counseling intake. On 07/31/2023 provider informed pt that I would be retiring, but we would make every effort to ensure smooth transition of care. Assessment & Plan (10/02/2023 9:43 AM EST): Plus OCD with irritability when things re dirty or out of place. Although she has an extensive trauma history since childhood, does not appear to have flashbacks or hypervigilance associated with PTSD. Presented with visual hallucinations (shadows, her son-in-law) and auditory hallucinations (voices). Pt recently experienced new onset of seizures which have been determined to be non- epileptic. ?? Mood is a little better, hallucinations controlled. No longer with passibe SI. Had increased anxiety with Sertraline 150 mg, improved again with decrease to Sertraline 100 mg daily. Continue Haloperidol 2 mg in am and 4 mg at bedtime. Encouraged to go personally as planned to [facility] agency as a walk-in for counseling. On 07/31/2023 provider informed pt that I would be retiring within approx 1/2 year, but we would make every effort to ensure smooth transition of care. Assessment & Plan (07/31/2023 10:37 AM EST): Plus OCD with irritability when things re dirty or out of place. Although she has an extensive trauma history since childhood, does not appear to have flashbacks or hypervigilance associated with PTSD. Presented with visual hallucinations (shadows, her son-in-law) and auditory hallucinations (voices). Pt recently experienced new onset of seizures, and has multiple ED visits for seizure-type activity. EEG has been negative, and she has followed closely with Neurologist. Seizures are not well controlled despite Tegretol and plans inpatient Neurological observation and optimization. ?? Anhedonia persists, although hallucinations better controlled. Intrusive thoughts including thoughts of being better off , without SI. Poor sleep. Increased anxiety with increased Sertraline 150 mg. Will decrease again to Sertraline 100 mg. Will increase Haloperidol to 2 mg in am and 4 mg at bedtime. Referring again for counseling. Today 07/31/2023 provider informed pt that I would be retiring within approx 1/2 year, but we would make every effort to ensure smooth transition of care. F/U with me in 2 months. She agrees with the plan. Assessment & Plan (05/30/2023 10:10 AM EDT): Plus OCD with irritability when things re dirty or out of place. Although she has an extensive trauma history since childhood, does not appear to have flashbacks or hypervigilance associated with PTSD. Presented with visual hallucinations (shadows, her son-in-law) and auditory hallucinations (voices). Pt recently experienced new onset of seizures, and has multiple ED visits for seizure-type activity. EEG has been negative, and she has followed closely with Neurologist. Taking Tegretol and has not had recurrence of seizures. ?? Sleeping OK. Mild visual hallucinations. Mood has been depressed, will increase to Sertraline 150 mg at bedtime. Referring for counseling. Continue other medications: Haloperidol 1 mg in am and 3 mg at bedtime, Hydroxyzine 25 mg at bedtime. Also gets Tegretol 200 mg BID and Amitriptyline 20 mg per Neurologist for migraines. ,F/U with me in 2 months. She agrees with the plan. Assessment & Plan (03/28/2023 9:31 AM EDT): Plus OCD with irritability when things re dirty or out of place. Although she has an extensive trauma history since childhood, does not appear to have flashbacks or hypervigilance associated with PTSD. Presented with visual hallucinations (shadows, her son-in-law) and auditory hallucinations (voices). Pt recently experienced new onset of seizures, and has multiple ED visits for seizure-type activity. EEG has been negative, and she has followed closely with Neurologist. Taking Tegretol and has not had recurrence of seizures. Not doing as well, with recurrence of hallucinations, poor concentration and sleep. Again reviewed with patient that the Phentermine may be worsening her anxiety and sleep, but she is resistant to considering stopping this. Will increase to Haloperidol 3 mg at bedtime, continue Haloperidol 1 mg in am, Sertraline 100 mg daily, Hydroxyzine 25 mg at bedtime. Also gets Tegretol 200 mg BID and Amitriptyline 20 mg per Neurologist for migraines. Encouraged to seek out counseling as planned, or let us know and we can make referral. ,F/U with me in 2 months. She agrees with the plan. Assessment & Plan (01/12/2023 10:06 AM EDT): Plus OCD with irritability when things re dirty or out of place. Although she has an extensive trauma history since childhood, does not appear to have flashbacks or hypervigilance associated with PTSD. Presented with visual hallucinations (shadows, her son-in-law) and auditory hallucinations (voices). Those are resolved. Pt recently experienced new onset of seizures, and has multiple ED visits for seizure-type activity. EEG has been negative, and she has followed closely with Neurologist. Taking Tegretol and has not had recurrence of seizures. Despite the negative EEG it would be safest not to resume the Bupropion.. Gets Amitriptyline 10 mg per Neurologist for migraines, but still awakens with TAM daily. Has been taking Phentermine per Dr. Verduzco every morning for energy. Reviewed that this could affect sleep and cause anxiety. Urged to F/u with therapist, set up phone alarm to remind her of appt times. Continue Sertraline 100 mg daily, Haloperidol 1 mg in am and 2 mg at bedtime. F/U with me in 2 months. She agrees with the plan. Assessment & Plan (11/29/2022 9:33 AM EDT): Plus OCD with irritability when things re dirty or out of place. Although she has an extensive trauma history since childhood, does not appear to have flashbacks or hypervigilance associated with PTSD. Pt recently experienced new onset of seizures, and has multiple ED visits for seizure-type activity. EEG has been negative, and she has followed closely with Neurologist. Despite the negative EEG it would be safest not to resume the Bupropion.. As she has only recently started the new medication dosing, no further changes at this time, continue Sertraline 100 mg daily, Haloperidol 2 mg at bedtime continue 1 mg in am. She has not been taking the Phentermine prescribed by Dr. Verduzco, but did like it as it gave her more energy. Reviewed risks associated with that medication including increased anxiety, elevated BP, and habituation. She will think about it and discuss again with Dr. Verduzco. F/U with therapist as planned, urged not to miss the upcoming appt as he case could be closed. Suggest she ask someone to help her set up the calendar on her phone.. F/U with me in 6 weeks. She agrees with the plan. Assessment & Plan (10/27/2022 9:40 AM EST): Plus OCD with irritability when things re dirty or out of place. Although she has an extensive trauma history since childhood, does not appear to have flashbacks or hypervigilance associated with PTSD. Pt recently experienced new onset of seizures, and has multiple ED visits for seizure-type activity. EEG has been negative, and she has followed closely with Neurologist. Despite the negative EEG I explained that it would be safest not to resume the Bupropion, but expect her energy to improve with better sleep and better control of depressive symptoms. At this time will increase to Sertraline 100 mg daily. Has found Haloperidol sedating, so will not increase morning dose but will increase to Haloperidol 2 mg at bedtime continue 1 mg in am. With severe anxiety, may need maintenance benzo, but deferring today. F/U with therapist as planned. F/U with me in 1 month. She agrees with the plan. Assessment & Plan (09/29/2022 10:51 AM EST): Plus OCD with irritability when things re dirty or out of place. Although she has an extensive trauma history since childhood, does not appear to have flashbacks or hypervigilance associated with PTSD. Pt recently experienced new onset of seizures, and has multiple ED visits for seizure-type activity. EEG has been negative, and she has followed closely with Neurologist. Depression, anxiety and multimodal hallucinations poorly controlled. She is on multiple medications with significant risk for drug interactions and serotonin syndrome. At this time will simplify regimen. Stop Abilify 20 mg daily. Start Haloperidol 1 mg BID. This will likely need to be titrated up. She will continue Sertraline 50 mg daily. Stop other psychiatric medications (Amitriptyline, Duloxetine, Gabapentin). Also do not take Phentermine. Suggest deferring weightloss treatments at this time. Do Follow up for counseling, go to [facility] and/or call for appointment. May also need maintenance benzo, but deferring today. F/U with me in 1 month. She agrees with the plan. Assessment & Plan (08/29/2022 10:20 AM EST): Plus OCD with irritability when things re dirty or out of place. Although she has an extensive trauma history since childhood, does not appear to have flashbacks or hypervigilance associated with PTSD. Pt recently experienced new onset of seizures. She has only recently stopped Wellbutrin XL 150 mg daily and started new Zoloft 50 mg daily, which may be causing some drowsiness. This will likely resolve but if not she can request that the Zoloft be moved to bedtime dosing. Decreased Keppra may also help her mood. Continue Abilify 20 mg daily and Cymbalta 30 mg daily but may be able to discontinue and titrate Zoloft. She will f/u with therapist, and with me in 1 month. She agrees with the plan. Assessment & Plan (07/28/2022 10:10 AM EST): Plus OCD with irritability when things are dirty or out of place. Although she has an extensive trauma history since childhood, does not appear to have flashbacks or hypervigilance associated with PTSD Pt recently experienced new onset of seizures, and appears to still be having partial seizures. Will stop Wellbutrin XL 150 mg daily. Will start Zoloft (Sertraline) 50 mg once daily with food, which should also be more effective for OCD. Will continue Cymbalta 30 mg daily for now, but if Zoloft is tolerated may be able to increase Zoloft and discontinue Cymbalta. Continue Abilify 20 mg daily. Continue with therapist and F/U with me in 1 month. She agrees with the plan. 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 Plantar fasciitis 10/31/2013 Joint pain 10/31/2013 Fibromyositis 10/31/2013 Diabetes mellitus type 2, uncomplicated 01/18/20 12 Overview (01/23/2024): Lab Results Component Value Date HGBA1C 5.1 08/07/2023 Resolved Problems Problem Noted Date Diagnosed Date Resolved Date Seizure 09/25/2022 10/04/2022 Influenza-like symptoms 07/26/2022 01/0 10/2022 Acute pain of left knee 07/26/2022 06/2 Encounters Date Type Department Care Team Description 10/08/2024 11:15 AM EST Office Visit [facility] [address] [place] [address] Rosalva Hidalgo MD Erythema nodosum (Primary Dx); Androgenetic alopecia; Androgenetic alopecia; Varicose veins of left leg with edema 10/08/2024 Travel 10/04/2024 Travel 10/01/2024 Telephone [facility] [address] [place] [address] Gabbie Cisneros MD Care Coordination (ICP CP) 09/28/2024 Refill [facility] [address] [place] [address] Gabbie Cisneros MD Chronic obstructive pulmonary disease, unspecified COPD type (CMS/HCC) 09/27/2024 Telephone [facility] [address] [place] [id number] Gabbie Cisneros MD Referral 09/26/2024 Patient Outreach [facility] [address] [place] [id number] Gabbie Cisneros MD Pre-visit Planning (SDOH screening negative and tobacco screening negative) 09/18/2024 Travel 09/10/2024 Refill [facility] [address] [place] [address] Nora Redmond MD 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) 08/08/2024 Refill [facility] [address] [place] [address] Gabbie Cisneros MD Unspecified asthma with (acute) exacerbation 07/29/2024 [facility] [facility] [address] [place] [address] Gabbie Cisneros MD Chronic obstructive pulmonary disease, unspecified COPD type (CMS/HCC) 07/22/2024 Refill [facility] [address] [place] [address] Vinod Graves MD 07/22/2024 Telephone [facility] [address] [place] [address] Gabbie Cisneros MD ER Follow-up 07/12/2024 Refill [facility] [address], [place] [phone] Gabbie Cisneros MD Benign neoplasm of pituitary gland (CMS/HCC); Eczema, unspecified type 07/09/2024 [facility] Health Information Management [address] [place] [phone] Gabbie Cisneros MD from Last 3 Months Immunizations Name Administration Dates Next Due Hep B, adult 04/15/2014,12/18/2013,11/14/2013 Influenza injectable quadriv alent IIV4 with preservative 04/02/2015 Influenza injectable quadriv alent preservative free 08/04/2023,05/11/2022,07/02/2021,07/09,06/25/2019,04/16/2018 Influenza, IIV3, injectable 05/30/2014, 1,05/11/2009 Influenza, Injectable, MDCK, preservative free 09/26/2013 Pfizer Covid-19 Vaccine 12+ 11/12/2021, 1,12/11/2020 Pfizer Covid-19 Vaccine 12+ adelina-sucrose (Garcia Cap) 11/12/2021 Pneumococcal Polysaccharide PPSV23 04/16,02/05/2018,03/12/2013,01/27 Tdap 04/16/2018,03/12/2013 Zoster, Recombinant 09/10/2020,07/09/2020 Family History Medical History Relation Name Comments Leukemia Brother Relation Name Status Comments Brother Social History Tobacco Use Types Packs/Day Years [...] Orientation Straight 06/20/2022 10 :21 AM EDT Last Filed Vital Signs Vital Sign Reading Time Taken Comments Blood Pressure 128/82 10/08/2024 11:34 AM EST Pulse 75 04/30/2024 11:11 AM EDT Temperature 36.6 ??C (97.9 ??F) 10/08/2024 11:[address] Respiratory Rate 20 10/08/2024 11:34 AM EST Oxygen Saturation 99% 04/30/2024 11:11 AM EDT Inhaled Oxygen Concentration - - Weight 79.7 kg (175 lb 9.6 oz) 10/08/2024 11:34 AM EST Height 161.5 cm (5' 3.58 ) 10/08/2024 11:[address] Body Mass Index 30.54 10/08/2024 11:34 AM EST Plan of Treatment Upcoming Encounters Date Type Department Care Team (Late st Contact Info) Description 10/10/2024 8:30 AM EST Office Visit [facility] [address] [place] [address] Gabbie Cisneros MD [address] [place] [address] 11/28/2024 9:00 AM EDT Office Visit [facility] [address] [place] [address] Ti Castillo CNM [address] [place] [address] Health Maintenance Due Date Last Done Comments CT Colonography 1969 Colonoscopy 1969 Colorectal Cancer Screening 1969 FIT DNA/Cologuard 1969 FIT 1969 FOBT 1970 HIV Screening 1970 Sigmoidoscopy 1969 Diabetes: Foot Exam 12/10/1979 Eye Exam 12/10/1979 Alcohol/Substance Use Screening 1981 Hepatitis C Screening 12/10/1987 Diabetes: Urine Protein Screening 1988 Pneumococcal Vaccine: 50+ Years (2 of 2 - PCV) 04/16/2019 04/16/2018, 02/05/2018, 03/12/2013, Additional history exists Diabetes: Hemoglobin A1C 11/06/2023 023, 02/07/2023, 07/18/2022, Additional history exists COVID-19 Vaccine ( season) 2024 11/12/2021, 11/12/2021, 01/01/2021, Additional history exists Influenza Vaccine (#1) 2024 , 05/11/2022, 07/02/2021, Additional history exists Depression Monitoring (PHQ-9) 07/31/2024 01/30/2024, 01/30/2024 Lipid Panel 08/07/2024 08/07/2023, 0411/2021, 05/12/2021, Additional history exists Depression Screening 01/29/2025 01/30/2024, 01/30/20 24 SDOH Screening 09/26/2025 09/26/2024 Tobacco Screening 10/08/2025 10/08/2024 Mammogram 07/05/2026 07/05/2024, 02/15/2022 DTaP/Tdap/Td Vaccines (3 - Td or Tdap) 04/16/2028 04/16/2018, 03/12/2013 Cervical Cancer Screening 12/11/2028 HPV/Cotest 12/11/2028 12/12/2023 Pap Smear 12/11/2028 12/12/2023, 01/19/2012 RSV Patients and Patients Aged 60 years or older (1 - 1-dose 75+ series) 2044 Hepatitis [...] patient's age to complete this topic Meningococcal Vaccine Aged Out No marlene verenice eligible based on patient's age to complete this topic RSV under 20 months Aged Out No longe r eligible based on patient's age to complete this topic Rotavirus Vaccines Aged Out No longer eligible based on patient's age to complete this topic Goals Goal Patient Goal Type Associated Problems Recent Progress Patient-Stated? Author Patient will adhere to medication regimen General No Jerry Shelby, PharmD Help patient manage asthma General No Jerry Shelby, AlliD Note: Reduce use of LUANNE to 2x/week Procedures Procedure Name Priority Date/Time Associated Diagnosis Comments CT SINUS WO CONTRAST Routine 07/29/2024 7:58 AM EST HM MAMMOGRAPHY Routine 07/05/2024 9:46 AM EST HPV MRNA E6/E7 REFLEX TO HPV 16, 18/45 Routine 12/12/2023 10:19 AM EDT PAP SMEAR Routine 12/12/2023 10:19 AM EDT Cervical cancer screening HEMOGLOBIN A1C Routine 08/07/2023 10:53 AM EST Type 2 diabetes mellitus without complication, without long-term current use of insulin (CMS/HCC) LIPID PANEL, STANDARD Routine 08/07/2023 10:53 AM EST Type 2 diabetes mellitus without complication, without long-term current use of insulin (CMS/HCC) from Last 3 Months or Most Recently Relevant to Health Maintenance Results * CT Sinus w/o Contrast (07/29/2024 7:58 AM EST) Anatomical Region Laterality Modality Computed Tomogra phy 07/29/2024 7:58 AM EST Narrative 09/04/2024 11:29 AM EST ? [facility] ?[address] ?[place] [address] ? CT Scan Report ? Signed ? Patient: Fernandez,Radha ?MR#: [id number] ?? [id number] ? : 1970 ?Acct:[id number] ? Age/Sex: 53 / F ?ADM Date: 07/29/24 ? Loc: HO.CT ? Attending Dr: Betzaida Solis MD ? Ordering Physician: Betzaida Solis MD ?? Date of Service: 07/29/24 ?? Procedure(s): CT sinus wo IV con ?? Accession Number(s): [id number] ? cc: Betzaida Solis MD; Gabbie Cisneros MD ? Report Number: ?? [id number]: Total DLP = ?? 99.00 mGy-cm ?? [...] DD/ 0758 ? TD/TT: 07/29/24 0802 ? [employer] Ax Consultant: MANNY ? Procedure Note Tobin Guardado - 09/04/[address] [place] [address] [address] Scan Report Signed Patient: Darron Fernandez#: [id number] : 1970Acct:[id number] Age/Sex: 53 / FADM Date: 07/29/24 Loc: HO.CT Attending Dr: Betzaida Solis MD Ordering Physician: Betzaida Solis MD Date of Service: 07/29/24 Procedure(s): CT sinus wo IV con Accession Number(s): [id number] cc: Betzaida Solis MD; Gabbie Cisneros MD Report Number: [id number]: Total DLP = 99.00 mGy-cm EXAMINATION: CT [...] 09/04/24 1126 DD/ 0758 TD/TT: 07/29/24 0802 [employer] Consultant: MANNY [facility] External Provider IMG CT PROCEDURES Final Result * Hm Mammography (07/05/2024 9:46 AM EST) Anatomical Region Laterality Modality Other us Historical Provider HEALTH MAINTENANCE Final Result * HPV mRNA E6/E7 w/Reflex to HPV Genotypes 16, 18/45 (12/12/2023 10:19 AM EDT) HPV nRNA E6/E7 Not Detected Not Detected [facility] Comment:Methodology: Transcr iption-Mediated AmplificationThis assay detects E6/E7 viral messenger RNA (mRNA) from 14high-risk HPV types (16,18,31,33,35,39,45,51,52,56,58,59,66,68).Cervical sources are required for HPV testing.If a vaginal source from a patient who has had atotal hysterectomy with removal of cervix wassubmitted, please contact the testing laboratoryfor alternative testing options.For additional information, please refer tohttp://education.[employer]/faq/WZV243d6(This link if provided for information/educational purposes only.)THIS TEST WAS PERFORMED AT:[facility] [place] [phone] SHEPPARD MD HPV mRNA E6/E7 [facility] HPV 16 RNA [facility] HPV 18/45 RNA [facility] 12/12/2023 10:1 9 AM EDT 12/13/2023 1:00 PM EDT Ti Castillo [facility] CYTOLOGY ORDERABLES F inal Result [facility] [address] [place] [address] [phone] * Pap Smear (12/12/2023 10:19 AM EDT) Swab Cervix uteri structure / Unknown 12/12/2023 10:19 AM EDT 12/13/2023 1:00 PM EDT Narrative [facility] - 01/01/2024 11:53 AM EDT ----- ------- Name: Radha Fernandez ?Age/Sex: 53/F ? : 1970 Unit#: [id number] ?? Attend Dr: TI CASTILLO CNM ?Re12/15/23 ?Status: DEP REF ? Location: HO.LNP ?Disch: ? ----- ------- SPEC : [id number] ? RECD: 12/13/23-1300 ? STATUS: ??SOUT ? REQ NUM: [id number] ? STEPH: 12/12/23-1019 ? SUBM DR: TI CASTILLO CNM ? ENTERED: ??12/13/23-1451 ?SP TYPE: Pap Smr ?OTHR DR: ? ORDERED: ??Pap Smear ? Interpretation ?? Satisfactory for evaluation. ?? No endocervical cells seen. ?? Fungal organisms consistent with Nelly species. ?? Negative for intraepithelial lesion or malignancy. ?HPV mRNA E6/E7: ?NOT DETECTED ? This assay detects E6/E7 viral messenger RNA (mRNA) from 14 high-risk HPV types (16, 18, ?? 31, 33, 35, 39, 45, 51, 52, 56, 58, 59, 66, 68) ?? HPV testing performed by [facility], [place], [place]. ??See reference laboratory ?? portion of the EMR for entire report. ?Clinical Information LMP: Postmenopausal Previous PAP test: 2018, Unknown findings ? Material Received ?? ThinPrep-Cervical ----- ------- Signed (signature on file) REGINA Mcnamara (ASCP) 01/01/24 1153 ? ----- ------- ? END OF REPORT ? us Ti Castillo [facility] CYTOLOGY ORDERABLES F inal Result [facility] [address] [place] [address] [phone] * Hemoglobin A1c (08/07/2023 10:53 AM EST) Hemoglobin A1c 5.1 <6.0 % [facility] Comment:Hemoglobin A1C Refer ence Range Adults: 4.8 - 6.0 % Non diabetic: < 6.0 % Goal: < 7.0 %Additional Action Suggested: > 8.0 %Note: Hemoglobin A1c results are invalid for patients with abnormal amounts of HbF. Blood transfusions may impact the HbA1c concentration in the patient sample. Estimated Average Glucose 100 mg/dL [facility] Comment:eAG = Estimated ave rage glucose which is %A1C expressed asaverage glucose, using the formula of the W5U-GpkxdbrAnkdoqe Glucose study (ADAG), Diabetes Care, Vol.31,#8,Mar. 2007 Blood Venous blood specimen / Unknown 08/07/2023 10:53 AM EST 08/07/2023 2:05 PM EST us Gabbie Cisneros MD LAB BLOOD ORDERABLES Final Resul t [facility] [address] [place] [phone] * Lipid Panel, Standard (08/07/2023 10:53 AM EST) Triglycerides 75 <150 mg/dL [facility] Comment:Desirable Triglyceri de: less than 150 mg/dLBorderline High Triglyceride 150-199 mg/dLHigh Triglyceride: 200-499 mg/dLVery High Triglyceride: greater than or equal to 5OO mg/dL Cholesterol 174 <200 mg/dL [facility] Comment:Desirable Cholestero l: less than 200 mg/dLBorderline High Cholesterol: 200-239 mg/dLHigh Cholesterol: greater than 239 mg/dL LDL Cholesterol Calculated 98 <100 mg/dL [facility] Comment:Desirable LDL: less than 100 mg/dLNear Optimal/Above Optimal LDL: 110- 129 mg/dLBorderline High LDL: 130-159 mg/dLHigh LDL: 160-189 mg/dLVery High LDL: greater than or equal to 190 mg/dL HDL Cholesterol 61 >40 mg/dL [facility] Comment:Desirable HDL: great er than 40 mg/dL Note: This HDL assay may give artificially low results in patients with liver disease. Blood Venous blood specimen / Unknown 08/07/2023 10:53 AM EST 08/07/2023 2:05 PM EST Gabbie Cisneros MD LAB BLOOD ORDERABLES Final Resul t [facility] [address] [place] [address] [phone] from Last 3 Months or Most Recently Relevant to Health Maintenance Insurance [employer] C3 Care Teams Ski Patrol Director Relationship Specialty Start Date End Date Gabbie Cisneros MD [address] [place] [phone] PCP - General Family Medicine 05/02/18 Saloni Kaminski Senior Electrical EngineerAutomobile Insurance Claim Examiner 05/19/23 Rosemarie Palmer [address] [place] [address] Nurse Practitioner Neurology 09/18/23 Milad Mcfarland Senior Electrical EngineerAutomobile Insurance Claim Examiner 10/01/24
--- OUTSIDE RECORDS SUMMARY | 2024-10-09 10:25 | XMS_ITS | Encounter Summary ---
Author Organization [employer] Address [address] [place] [address] Care Team Providers Care Head Banquet Waiter/Waitress Name Role Phone Gabbie Cisneros MD Primary Care Provider [phone] Reason for Visit * Reason Onset Date Comments Referral 04/09/2024 Encounter Details Date Type Department Care Team ([facility] st Contact Info) Description 04/09/2024 Telephone [facility] [address] [place] [address] Gabbie Cisneros MD [address] [place] [address] Referral Social History Tobacco Use Types Packs/Day [...] encounter Miscellaneous Notes * Telephone Encounter - Laura Orta RN - 04/09/2024 1:01 PM EDT Rheum referral placed from appt. 04/03/24 for dx arthralgia, myalgia and fatigue. Pt. Reporting unable to be seen at [facility] as referred due to previous h/o no shows. Please place new referral if agreeable so it can be sent to alternative location, thank you! * Telephone Encounter - Rosita Ybarra - 04/09/2024 12:34 PM EDT Tc from pt calling to inform referral that was made for Rheumatology at [facility] will not be accepting her due to in the last missing many appointment. Pt would like to be referral to a different location. documented in this encounter Plan of Treatment Upcoming Encounters Date Type Department Care Team (Late st Contact Info) Description 10/10/2024 8:30 AM EST Office Visit [facility] [address] [place] [address] Gabbie Cisneros MD [address] [facility] [place] [address] 11/28/2024 9:00 AM EDT Office Visit [facility] [address] [place] [address] Lisa Wayne, WARD [address] [place] [address] documented as of this encounter Goals Goal [...] documented as of this encounter Care Teams Head Banquet Waiter/Waitress Relationship Specialty Start Date End Date Gabbie Cisneros MD [address] [place] [address] PCP - General Family Medicine 05/02/18 Saloni Kaminski Agricultural Education InstructorWrecking Crane Engine Operator 05/19/23 Rosemarie Palmer [address] [place] [address] Nurse Practitioner Neurology 09/18/23 Milad Mcfarland Agricultural Education InstructorWrecking Crane Engine Operator 10/01/24 documented as of this encounter
[2024-10-09 11:08] LABS: Eosinophils Absolute Auto 0.1 X10*3/uL (0.0-0.4); Hemoglobin 13.8 g/dl (12.0-16.0); Imm Gran Abs Auto 0.01 X10*3/uL (0.00-0.03); Imm Gran Pct Auto 0.3 % (0.0-0.4); Lymphocytes Percent Auto 33.8 % (20-40); Mean Corpuscular HGB Conc 34.5 g/dl (31.0-35.0); Mean Corpuscular Hemoglobin 31.7 pg (27.0-33.0); Mean Corpuscular Volume 91.7 fL (80.0-98.0); Monocytes Absolute Auto 0.3 X10*3/uL (0.1-1.2); Monocytes Percent Auto 8.9 % (2-11); Neutrophils Absolute Auto 1.6 x10*3/uL (2.0-8.3); Platelet Count 264 X10*3/uL (160-400); Red Blood Count 4.36 X10*6/uL (4.20-5.50); Red Cell Distribution Width 12.6 % (11.0-16.0)
[2024-10-09 11:34] LABS: Alanine Aminotransferase 46 U/L (0-31); Albumin Level 4.3 g/dL (3.5-5.0); Alkaline Phosphatase 79 U/L (39-117); Anion Gap 11 (12-20); Aspartate Amino Transferase 38 U/L (5-31); Bilirubin Total 0.4 mg/dL (0.0-1.0); Blood Urea Nitrogen 13 mg/dL (9-16); C Reactive Protein < 0.10 mg/dL (< or = 0.50); Calcium 8.9 mg/dL (8.4-10.2); Carbon Dioxide 28 mmol/L (22-29); Chloride 106 mmol/L (96-108); Estimated Glomerular Filt Rate > 60; Glucose Random 77 mg/dL (60-115); Potassium 3.9 mmol/L (3.3-5.1); Sodium 141 mmol/L (135-145); Total Protein 7.7 g/dL (6.5-8.0)
[2024-10-09 12:02] LABS: Erythrocyte Sedimentation Rate 5 MM/HR (0-20)
== END 2024-10-09 09:56 | disposition home or self-care (01) ==
LOC: HO.LAB 09:55
PROVIDERS: PCP Student in an Organized Health Care Education/Training Program; Visit Provider Student in an Organized Health Care Education/Training Program
DX: M15.9 Polyosteoarthritis, unspecified (principal); I10 Essential (primary) hypertension
CPT/HCPCS: 36415; 80053; 85025; 85652; 86140

== ENCOUNTER 2024-11-28 13:40 | Outpatient (REF) | payer MEDICAID, SELFPAY ==
[2024-11-28 15:39] LABS: Bacterial Vaginosis PCR NEGATIVE (Negative); Candida Group PCR NOT DETECTED (Not Detect); Candida glab krusei PCR NOT DETECTED (Not Detect); Trichomonas vaginalis PCR NOT DETECTED (Not Detect)
[2024-11-28 16:11] LABS: CT PCR NOT DETECTED (Not Detect.); NG PCR NOT DETECTED (Not Detect.)
--- OUTSIDE RECORDS SUMMARY | 2024-11-28 16:32 | XMS_ITS | Encounter Summary ---
Author Organization [employer] Address [address] [place] [address] Care Team Providers Care Pediatric Lpn Name Role Phone Gabbie Cisneros MD Primary Care Provider [phone] Reason for Visit * Reason Onset Date Comments Med Refill Appointment 2023 [facility] Encounter Details Date Type Department Care Team (Late st Contact Info) Description 2023 Refill [facility] [address] [place] [address] Andrew Lozano FNP Social History Tobacco Use [...] t he electric, gas, oil or water Trendsetters threatened to shut off services in your [...] Care Team (Late st Contact Info) Description 01/22/2025 10:15 AM EDT Office Visit [facility] [address] [place] [address] Gabbie Cisneros MD [address] [place] [address] documented as of this encounter Goals Goal Patient Goal Type Associated Problems Recent Progress Patient-Stated? Author Patient will adhere to medication regimen General No Dellogevelyn, Jerry, PharmD Help patient manage asthma General No Dellogono, Jerry, PharmD Note: Reduce use of LUANNE to 2x/week documented as of this encounter Visit Diagnoses Not on filedocumented in this encounter Additional Health Concerns Assessment Noted Time PHQ-9 Depression Total Score: 7 10/30/19 24 9:31 AM EDT documented as of this encounter Care Teams Pediatric Lpn Relationship Specialty Start Date End Date Gabbie Cisneros MD [address] [place] [address] PCP - General Family Medicine 05/02/18 Saloni Kaminski Inter Com InstallerCorporate Attorney 05/19/23 Rosemarie Palmer [address] [place] [address] Nurse Practitioner Neurology 09/18/23 Milad Mcfarland Inter Com InstallerCorporate Attorney 10/01/24 documented as of this encounter
--- OUTSIDE RECORDS SUMMARY | 2024-11-28 16:32 | XMS_ITS | Encounter Summary ---
Author Organization [employer] Address [address] [place] [address] Care Team Providers Care Floor Surfacer Name Role Phone Gabbie Cisneros MD Primary Care Provider [phone] Reason for Visit * Reason Onset Date Comments Appointment Request 06/12/2024 Encounter Details Date Type Department Care Team ([facility] Contact Info) Description 06/12/2024 Telephone [facility] [address] [place] [address] Gabbie Cisneros MD [address] [place] [address] Appointment Request Social History Tobacco Use Types [...] Upcoming Encounters Date Type Department Care Team ([facility] st Contact Info) Description 01/22/2025 10:15 AM EDT Office Visit [facility] [address] [place] [address] Gabbie Cisneros MD [address] [place] [address] documented as of this encounter Goals Goal [...] documented as of this encounter Care Teams Floor Surfacer Relationship Specialty Start Date End Date Gabbie Cisneros MD [address] [place] [address] PCP - General Family Medicine 05/02/18 Saloni Kaminski Chair MakerSupervisor Line Department 05/19/23 Rosemarie Palmer [address] [place] [address] Nurse Practitioner Neurology 09/18/23 Milad Mcfarland Chair MakerSupervisor Line Department 10/01/24 documented as of this encounter
--- OUTSIDE RECORDS SUMMARY | 2024-11-28 16:32 | XMS_ITS | Encounter Summary ---
Author Organization [employer] Address [address] [facility] 7t [place] [address] Care Team Providers Care Human Machine Interface Engineer Name Role Phone Gabbie Cisneros MD Primary Care Provider [phone] Encounter Details Date Type Department Care Team ([facility] st Contact Info) Description 01/18/2024 Orders Only [facility] [address] [place] [address] Provider, MD Marina Social History Tobacco Use [...] Description 01/22/2025 10:15 AM EDT Office Visit [facility] [address] [place], [place] [phone] Gabbie Cisneros MD [address] [place] [address] documented as of this encounter Goals Goal [...] documented as of this encounter Care Teams Human Machine Interface Engineer Relationship Specialty Start Date End Date Gabbie Cisneros MD [address] [place] [address] PCP - General Family Medicine 05/02/18 Saloni Kaminski Video ProducerRn Surgical Pcu 05/19/23 Rosemarie Palmer [address] [place] [address] Nurse Practitioner Neurology 09/18/23 Milad Mcfarland Video ProducerRn Surgical Pcu 10/01/24 documented as of this encounter
--- OUTSIDE RECORDS SUMMARY | 2024-11-28 16:32 | XMS_ITS | Encounter Summary ---
Author Organization [employer] Address [address] 7[address] [place] [address] Care Team Providers Care Import Dispatcher Name Role Phone Gabbie Cisneros MD Primary Care Provider [phone] Reason for Visit * Reason Onset Date Comments call back 09/23/2022 Encounter Details Date Type Department Care Team ([facility] st Contact Info) Description 09/23/2022 Telephone [facility] [address] [place] [address] Gabbie Cisneros MD [address] [place] [address] call back Social History Tobacco Use Types [...] EST Return call placed to Jackie from [facility] who states pt has been c/o [...] to plan. * Telephone Encounter - Grabiel Espinozaos - 09/23/2022 3:25 PM EST Tc from jackie with [facility] visiting nurse requesting a call back regarding pt medication and having blood work done Please contact jackie at [phone] documented in this encounter Plan of Treatment Upcoming Encounters Date Type Department Care Team (Late st Contact Info) Description 01/22/2025 10:15 AM EDT Office Visit [facility] [address] [place], [place] [phone] Gabbie Cisneros MD [address] [place] [address] documented as of this encounter Visit Diagnoses Not on filedocumented in this encounter Additional Health Concerns Assessment Noted Time PHQ-9 Depression Total Score: 9 08/29/19 23 9:49 AM EST documented as of this encounter Care Teams Import Dispatcher Relationship Specialty Start Date End Date Gabbie Cisneros MD [address] [place] [address] PCP - General Family Medicine 05/02/18 Saloni Kaminski Practical Nursing TeacherPerfect Binder Setter 05/19/23 Rosemarie Palmer [address] [place] [address] Nurse Practitioner Neurology 09/18/23 Milad Mcfarland Practical Nursing TeacherPerfect Binder Setter 10/01/24 documented as of this encounter
--- OUTSIDE RECORDS SUMMARY | 2024-11-28 16:32 | XMS_ITS | Encounter Summary ---
Author Organization [employer] Address [address] [facility] [address] [place] [address] Care Team Providers Care Customer Sales Advisor Name Role Phone Gabbie Cisneros MD Primary Care Provider [phone] Encounter Details Date Type Department Care Team (Late st Contact Info) Description 09/29/2022 Abstract [facility] [address] [place] [address] Gabbie Cisneros MD [address] [place] [address] Social History Tobacco Use Types Packs/Day Years [...] Description 01/22/2025 10:15 AM EDT Office Visit [facility] [address] [place], [place] [phone] Gabbie Cisneros MD 505 [place] [address] documented as of this encounter Visit Diagnoses Not on filedocumented in this encounter Additional Health Concerns Assessment Noted Time PHQ-9 Depression Total Score: 15 023 9:30 AM EST documented as of this encounter Care Teams Customer Sales Advisor Relationship Specialty Start Date End Date Gabbie Cisenros MD [address] [place] [address] PCP - General Family Medicine 05/02/18 Saloni Kaminski Blocker And PolisherBin Worker 05/19/23 Rosemarie Palmer [address] [place] [address] Nurse Practitioner Neurology 09/18/23 Milad Mcfarland Blocker And PolisherBin Worker 10/01/24 documented as of this encounter
--- OUTSIDE RECORDS SUMMARY | 2024-11-28 16:32 | XMS_ITS | Encounter Summary ---
Author Organization [employer] Address [address] [facility] [address] [place] [address] Care Team Providers Care Pie Icer Machine Name Role Phone Gabbie Cisneros MD Primary Care Provider [phone] Reason for Referral * Imaging (Routine) - Authorized Specialty Diagnoses / Procedures Referred By Contac t Referred To Contact Radiology Diagnoses Pelvic pain Procedures US Pelvis Transvaginal Lisa Wayne CNM [address] [place] [address] Phone: tel: fax: [address] Phone: tel: fax: Referral ID Status Reason Start Date Expiration Date V isits Requested Visits Authorized [id number] Authorized 11/28/2024 11/28/2025 1 1 * Imaging (Urgent) - Authorized Specialty Diagnoses / Procedures Referred By Contac t Referred To Contact Radiology Diagnoses Pelvic pain Procedures Us Pelvis complete Lisa Wayne CNM [address] [place] [address] Phone: tel: fax: [address] Phone: tel: fax: Referral ID Status Reason Start Date Expiration Date V isits Requested Visits Authorized [id number] Authorized 11/28/2024 11/28/2025 1 1 Reason for Visit * Reason Comments Gynecologic Exam Encounter Details Date Type Department Care Team ([facility] st Contact Info) Description 11/28/2024 9:00 AM EDT Office Visit [facility] [address] [place] [address] Lisa Wayne CNM [address] [place] [address] Vaginal discharge (Primary Dx); Pelvic pain; Perimenopause; Vaginal dryness Social History Tobacco Use Types Packs/Day Years [...] Sign Reading Time Taken Comments Blood Pressure 120/80 11/28/2024 8:56 AM EDT Pulse 68 11/28/2024 8:56 AM EDT Temperature 36.6 ??C (97.9 ??F) 11/28/2024 8:56 AM ED T Respiratory Rate 20 11/28/2024 8:56 AM EDT Oxygen Saturation 100% 11/28/2024 8:56 AM EDT Inhaled Oxygen Concentration - - Weight 80.4 kg (177 lb 3.2 oz) 11/28/2024 8:56 A M EDT Height 160 cm (5' 3 ) 11/28/2024 8:56 AM EDT Body Mass Index 31.39 11/28/2024 8:56 AM EDT documented in this encounter Progress Notes * Lisa Wayne CNM - 11/28/2024 9:00 AM EDT Subjective Patient ID: Radha Fernandez is a 53 y.o. 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 Pap NIL/HPV neg 11/2023. Followed by neurology for functional neurological disorder. Menses spacing out, notes some vasomotor symptoms with amenorrhea. 1 AMAB partner, no safety concerns. Using vaginal estrogen, still notes some dryness with sex. Also notes vaginal discharge and odorand some pelvic pain. Agrees to all vaginal infection testing today. Chronic urinary frequency, rare stress urinary incontinence. Known migraines, pituitary adenoma. Mammogram negative 06/2024. The 10-year ASCVD risk score (Lino DK, et al., 2019) is: 3.6% Values used to calculate the score: Age: 53 years Sex: Female Is Non- : No Diabetic: Yes Tobacco smoker: No Systolic Blood Pressure: 128 mmHg Is BP treated: Yes HDL Cholesterol: 61 mg/dL Total Cholesterol: 174 mg/dL Patient seen in conjunction with VINCE Graf student. I was present for and confirmed all pertinent elements in the history, exam, assessment of the patient, and the plan of care, and agree with all findings. Review of Systems Genitourinary: Positive for frequency, pelvic pain and vaginal discharge. Negative for dyspareunia,dysuria, genital sores, hematuria, menstrual problem, urgency, vaginal bleeding and vaginal pain. No abnormal pap, no abnormal bleeding, no breast pain, no breast mass, no nipple discharge Objective BP 120/80 (BP Location: Left arm, Patient Position: Sitting, BP Cuff Size: Adult) Pulse 68 Temp97.9 ??F (36.6 ??C) (Temporal) Resp 20 Ht 5' 3 (1.6 m) Wt 177 lb 3.2 oz (80.4 kg) LMP 11/10/2024 (Exact Date) SpO2 100% BMI 31.39 kg/m?? Physical Exam Exam conducted with a training analyst present (Lisa Wayne CNM). Constitutional: Appearance: Normal appearance. Chest: Breasts: Right: Normal. No swelling, bleeding, inverted nipple, mass, nipple discharge, skin change or tenderness. Left: Normal. No swelling, bleeding, inverted nipple, mass, nipple discharge, skin change or tenderness. Genitourinary: General: Normal vulva. Labia: Right: No rash, tenderness, lesion or injury. Left: No rash, tenderness, lesion or injury. Vagina: Normal. No signs of injury and foreign body. No vaginal discharge, erythema, tenderness, bleeding or lesions. Cervix: No cervical motion tenderness, discharge, friability, lesion, erythema, cervical bleeding or eversion. Uterus: Normal. Not enlarged and not tender. Adnexa: Right adnexa normal and left adnexa normal. Right: No mass, tenderness or fullness. Left: No mass, tenderness or fullness. Comments: Ovaries non palpable bilaterally. Good tone with Kegels, mild cystocele Lymphadenopathy: Upper Body: Right upper body: No supraclavicular or axillary adenopathy. Left upper body: No supraclavicular or axillary adenopathy. Neurological: Mental Status: She is alert. Psychiatric: Mood and Affect: Mood normal. Behavior: Behavior normal. Assessment/Plan Diagnoses and all orders for this visit: Vaginal discharge - Bacterial Vaginosis Panel - Chlamydia/N. Gonorrhoeae RNA, TMA, Urogenitial Bacterial vaginosis panel and Gonorrhea/Chlamydia sent. Will contact with results. Pelvic pain - Us Pelvis complete; Future - US Pelvis Transvaginal; Future Pelvic ultrasound ordered. Perimenopause Coping okay with vasomotor symptoms at this time. Let me know if this changes. Can consult with neuro to see if hormone therapy okay if needed. Reviewed normal vs abnormal menstrual changes. Report prolonged, frequent or heavy bleeding or bleeding that occurs after a year of no bleeding. Vaginal dryness If vaginal testing all negative, could trial increasing vaginal estrogen to daily x 14 days and then resume 2-3x/week. Consider urogyn referral if all testing today negative. documented in this encounter Plan of Treatment Upcoming Encounters Date Type Department Care Team ([facility] st Contact Info) Description 01/22/2025 10:15 AM EDT Office Visit [facility] [address] [place] [address] Gabbie Cisneros MD [address] [place] [address] Scheduled Orders Name Type Priority Associated Diagnoses Orde r Schedule Us Pelvis complete Imaging Urgent Pelvic pain Expected: 11/28/2024, Expires: 11/28/2025 US Pelvis Transvaginal Imaging Routine Pelvic pain Expected: 11/28/2024, Expires: 11/28/2025 documented as of this encounter Goals Goal Patient Goal Type Associated Problems Recent Progress Patient-Stated? Author Patient will adhere to medication regimen General No Afsaneh, Jerry, PharmD Help patient manage asthma General No Ramirezlogevelyn, Jerry, PharmD Note: Reduce use of LUANNE to 2x/week documented as of this encounter Procedures Procedure Name Priority Date/Time Associated Diagnosis Comments BACTERIAL VAGINOSIS PANEL Routine 11/28/2024 9:22 AM EDT Vaginal discharge CHLAMYDIA/N. GONORRHOEAE RNA, TMA, UROGENITAL Routine 11/28/2024 9:22 AM EDT Vaginal discharge documented in this encounter Results * Chlamydia/N. Gonorrhoeae RNA, TMA, Urogenitial (11/28/2024 9:22 AM EDT) CT PCR NOT DETECTED Not Detect. [facility] Comment:A not detected test result does not exclude the possibilityof infection because test results can be affected byimproper specimen collection, concurrent antibiotic therapy,or the number of organisms in the specimen which may bebelow the sensitivity of the test. As with many diagnostictests, results from the Xpert CT/NG assay should beinterpreted in conjunction with other laboratory andclinical data available to the clinician.Xpert CT/NG performance has not been evaluated in patientsless than 14 years of age. The assay should not be used forthe evaluationof suspected sexual abuse or for other medico-legalindications. Additional testing is recommended in anycircumstance when false positive or false negative resultscould lead to adverse medical, social or psychologicalconsequences. NG PCR NOT DETECTED Not Detect. [facility] Comment:A not detected test result does not exclude the possibilityof infection because test results can be affected byimproper specimen collection, concurrent antibiotic therapy,or the number of organisms in the specimen which may bebelow the sensitivity of the test. As with many diagnostictests, results from the Xpert CT/NG assay should beinterpreted in conjunction with other laboratory andclinical data available to the clinician.Xpert CT/NG performance has not been evaluated in patientsless than 14 years of age. The assay should not be used forthe evaluationof suspected sexual abuse or for other medico-legalindications. Additional testing is recommended in anycircumstance when false positive or false negative resultscould lead to adverse medical, social or psychologicalconsequences. Swab Vaginal structure / Unknown 11/28/2024 9:22 AM EDT 11/28/2024 2:34 PM EDT Narrative [facility] - 11/28/2024 4:11 PM EDT Vaginal us Lisa LINDO LAB MICROBIOLOGY - GENERA L ORDERABLES Final Result [facility] [address] [place] [phone] * Bacterial Vaginosis Panel (11/28/2024 9:22 AM EDT) TRICHOMONAS VAGINALIS DETECTION BY PCR NOT DETECTED Not Detect [facility] BACTERIAL VAGINOSIS DETECTION BY PCR NEGATIVE Negative [facility] Comment:The BV organism targ ets of the Xpert Xpress MVP test can becommensal in women; Xpert Xpress MVP positive results forbacterial vaginosis should be considered in conjunction withother clinical and patient information to determine thedisease status. Organisms that are not detected by the XpertXpress MVP test have also been reported to be associatedwith BV and aerobic vaginitis.The Xpert Xpress MVP test performance has not been evaluatedin patients under the age of 14. NELLY GROUP DETECTION BY PCR NOT DETECTED Not Detect [facility] Nelly glab krusei PCR NOT DETECTED Not Detect [facility] Swab Vaginal structure / Unknown 11/28/2024 9:22 AM EDT 11/28/2024 2:32 PM EDT us Lisa LINDO LAB MICROBIOLOGY - GENERA L ORDERABLES Final Result [facility] [address] [place] [phone] documented in this encounter Visit Diagnoses Diagnosis Vaginal discharge- Primary Leukorrhea, not specified as infective Pelvic pain Perimenopause Symptomatic menopausal or female climacteric states Vaginal dryness Postmenopausal atrophic vaginitis documented in this encounter Additional Health Concerns Assessment Noted Time PHQ-9 Depression Total Score: 10 024 9:42 AM EDT documented as of this encounter Care Teams Pie Icer Machine Relationship Specialty Start Date End Date Gabbie Cisneros MD [address] [place] [address] PCP - General Family Medicine 05/02/18 Saloni Kaminski Community PlannerCar Rental Agency Manager 05/19/23 Rosemarie Palmer [address] [place] [address] Nurse Practitioner Neurology 09/18/23 Milad Mcfarland Community PlannerCar Rental Agency Manager 10/01/24 documented as of this encounter
--- OUTSIDE RECORDS SUMMARY | 2024-11-28 16:32 | XMS_ITS | Encounter Summary ---
Author Organization [facility] Address [address] [facility] [address] [address] Care Team Providers Care Welder Fitter Gas Name Role Phone Gabbie Cisneros MD Primary Care Provider [phone] Reason for Visit * Reason Comments Med Refill Encounter Details Date Type Department Care Team (Late st Contact Info) Description 11/11/2022 Refill [facility] [address] [place] [address] Gabbie Cisneros MD [address] [place] [address] Chronic obstructive pulmonary disease, unspecified COPD type [...] Description 01/22/2025 10:15 AM EDT Office Visit [facility] [address] [place] [address] Gabbie Cisneros MD [address] [place] [address] documented as of this encounter Visit Diagnoses Diagnosis Chronic obstructive pulmonary disease, unspecified COPD type (CMS/HCC) documented in this encounter Additional Health Concerns Assessment Noted Time PHQ-9 Depression Total Score: 12 023 8:49 AM EST documented as of this encounter Care Teams Welder Fitter Gas Relationship Specialty Start Date End Date Gabbie Cisneros MD [address] [place] [phone] PCP - General Family Medicine 05/02/18 Saloni Kaminski Teletray OperatorMonorail Car Operator 05/19/23 Rosemarie Palmer [address] [place] [address] Nurse Practitioner Neurology 09/18/23 Milad Mcfarland Teletray OperatorMonorail Car Operator 10/01/24 documented as of this encounter
--- OUTSIDE RECORDS SUMMARY | 2024-11-28 16:32 | XMS_ITS | Data Portability ---
Author Organization [facility], [facility] Address [address] [place] [address] Care Team Providers Care Baby Attendant Name Role Phone [facility] Primary Care Provider Assessment No assessment recorded. Plan of Treatment Reminders Order Date Submit Date Provider Last Modified By Organization Details Last Modified Time Details Appointments PT INITIAL EVAL 2024 11:30A M Meron Arvizu DPT Not available Not available Not available PT FOLLOW-U P 2024 11:00A M Meron Arvizu DPT Not available Not available Not available PT FOLLOW-U P 2024 08:30A M Marcell Tam, DPT Not available Not available Not available RECHECK 15 2024 09:15A M EDUARDO VELASQUEZ PA-C Not available Not available Not available PT FOLLOW-U P 2024 11:30A M Meron Arvizu DPT Not available Not available Not available PT FOLLOW-U P 2024 08:30A M Suleman Clemente, ADMINISTRATIVE ANALYST Not available Not available Not available PT FOLLOW-U P 2024 12:30P M Meron Arvizu DPT Not available Not available Not available PT FOLLOW-U P 2024 11:00A Kalen Arvizu DPT Not available Not available Not available PT FOLLOW-U P 2024 12:00P M Meron Arvizu, DPT Not available Not available Not available PT FOLLOW-U P 2024 10:00A Kalen Clemente, ADMINISTRATIVE ANALYST Not available Not available Not available PT FOLLOW-U P 2024 10:30A M Shadina Bryn, ADMINISTRATIVE ANALYST Not available Not available Not available PT FOLLOW-U P 2024 09:30A M Suleman Bryn, ADMINISTRATIVE ANALYST Not available Not available Not available RECHECK 15 2024 09:45A M Jean Monte PA-C Not available Not available Not available Lab None recorded . Referral physical therapis t referral - Right hip DALTON, mild trochant lacie bursitis 1. Full AROM and PROM, no restrict ions.2. Gluteus myra, abductor , adductor , and core strength ening.2. Function al activiti es.3. Soft tissue modaliti es as needed.4 . Home exercise program with low impact aerobic activity .5. Stationa ry biking regularl y.6. Hip Foam Rolling7 . Hip Flexor Self Massage 2024 025 [email or web address] [facility], [address], [place], [address], 11/21/2024 10:01:50 Procedures None recorded . Surgeries None recorded . Imaging XR, hip + pelvis, unilater al, 2 or 3 view - room 5, r hip 2v 2024 025 colton [facility], [address], [address], [place], [address], 11/21/2024 10:01:49 XR, lumbar spine, 2 view - rm 101 lumbar 2 v 2024 025 [email or web address] [facility], [address], [address], [place], [address], 09/05/2024 10:00:50 MRI, lumbar spine, w/o contrast - mri lumbar evalaute lumbar radic 2024 025 [facility] ([facility]), [address], [place], [address], 09/05/2024 10:00:50 Medication Orders cycloben zaprine 10 mg tablet [address] [id number], [address] [place], [place], [id number], 08/23/2024 10:45:27 Patient TargetsNo targets recorded. Patient InstructionsNo instructions recorded. 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 Full AROM and PROM, no restrictions.2. Gluteus myra, abductor, adductor, and core strengthening.2. Functional activities.3. Soft tissue modalities as needed.4. Home exercise program with low impact aerobic activity.5. Stationary biking regularly.6. Hip Foam Rolling7. Hip Flexor Self Massage Referring Physician: Meron Cowart, Orthopedic Surgery, Encounter Date: 11/06/2024 Results Created Date Observation Date Name Description Value Unit Range Abnormal Flag Note LastModifiedBy Organization Detail LastModifiedTime 08/30/1908/28/2024 MRI, lumba r spine , w/o contr ast No observ ation record ed. [facility] [place] [address], [place], [address], 08/30/2024 11:58:53 08/30/1908/28/2024 MRI, lumba r spine , w/o contr ast [facility] Access ion Number : [id number] Patien t Name: Dimas oa, Radha Medica l Record Number : [id number] Date of : 1970 Date of Exam: 2024 Referr ing Physic cinthia: Eduardo Olivera i [facility] [address] [facility], [facility] [id number] Exam: MR Lumbar Spine (C-) CPT 03725 Room Descri ption: [facility] Verio 3.0T HISTOR Y: Lumbag o with sciati ca. Bilate ral leg pain. TECHNI QUE: Multip lanar multis equenc e MRI of the lumbar spine withou t contra st. COMPAR JASMIN: No prior studie s are availa ble for compar jasmin at [facility] . FINDIN GS: The lumbar alignm ent is unrema rkable . The lumbar verteb ral bodies are normal in height . Subtle desicc ation of the L3-L4 and L4-L5 discs. Subtle loss of height of L2-L3 and L3-L4. There is mild edema of the left inferi or endpla te of L3, which could be relate d to a small Schmor l's node. The conus termin ates at approx imatel y T12. No epidur al fluid collec tion or cauda equina compre ssion. No acute parasp inal or retrop eriton eal abnorm ality. L1-L2: Normal . L2-L3: Minima l broad- based oracle wms consultant ior disc bulge. No centra l canal stenos is. Minima l forami nal narrow ing. L3-L4: Mild concen tric disc bulge. No signif icant centra l canal narrow ing. Mild forami nal narrow ing. L4-L5: Mild broad- based oracle wms consultant ior disc bulge. No centra l canal stenos is. Minima l right and mild left forami nal narrow ing. L5-S1: No centra l canal or forami nal stenos is. IMPRES DALIA: Mild degene rative change s of the lumbar discs with broad- based oracle wms consultant ior disc bulges as detail ed above. No nerve root imping ement or signif icant centra l canal narrow ing. Electr onical ly Signed By: Molina Agudelo MD [address] [facility] ([facility]) [address], [place], [address], 08/30/2024 11:59:04 11/07/19 25 11/06/2024 XR, hip + pelvi s, unila teral , 2 or 3 view http:/ [email or web address] ?Encry pted=s hAaTro YD8dLq bEUv6g %2BXZw aYqtaq 0bqfl% 2Fg9IQ a4ajBk vP9nXo QUaueC m3YtLR FvZlgJ JJ8mAn HZtai3 7x7322 AC0KqY nmHUaC jKiQtr MwF INTER[facility] [address], [place], [address], 11/06/2024 10:44:35 11/07/19 25 11/06/2024 XR, hip + pelvi s, unila teral , 2 or 3 view http:/ [email or web address] ?Encry pted=s hANunuo YD8dLq bEUv6g %2BXZw aYqtaq 0bqfl% 2Fg9IQ a4ajBk vP9nXo QUaueC m3YtLR FvZlgJ JJ8mAn HZtai3 1i7762 AC0KqY nmHUaC jKiQtr MwF INTERFACE [facility] [address], [place], [address], 11/06/2024 10:44:37 Result Notes None recorded. Problems Name Problem SNOMED Code Status Onset Date Resolution Date Notes Provider Name and Address Organization Details Recorded Time Lumbar radiculopathy 714543992 Active 2024 LILO MARCOS [facility] [place] - [facility] 11:52:05 Hip pain 87284500 Active 2024 Meron Cowart PA-C [address], [place], [address] [place] [address] - [facility] 08:38:43 Problem Notes None recorded. Procedures Surgical History None recorded. Imaging Results Imaging Date Name Status LastModified by Organiz ation Details LastModified Time 08/28/2024 MRI, lumbar spine, w/o contrast completed [facility] [address] [facility], [place], [address], 08/30/2024 11:58:53 08/28/2024 MRI, lumbar spine, w/o contrast completed [email or web address] [facility] ([facility]) [address], [place], [address], 08/30/2024 11:59:04 11/06/2024 XR, hip + pelvis, unilateral, 2 or 3 view completed [facility] [address], [place], [address], 11/06/2024 10:44:35 11/06/2024 XR, hip + pelvis, unilateral, 2 or 3 view completed INTERFACE [facility] [address], [place], [address], 11/06/2024 10:44:37 Procedure Notes None recorded. Medical Equipment None Reported. Allergies Allergen ID Allergen Name Allergen Category Reaction Reaction Severity Criticality Documentation Date Start Date Code Code System Note Provider Name and Address Organization Details Recorded Time 928320 peanut allergeni c extract food,medi cation Not available Not available Not available 09/23/2024 10877 8 RxNorm LILO MARCOS [facility] 5 10:57:24 094279 tree nut food Not available Not available Not available 09/23/2024 41241 UNK LILO HEMANT [facility] 5 10:57:32 528567 avocado allergeni c extract food Not available Not available Not available 09/23/2024 61674 2 RxNorm LILO MARCOS [facility], [facility] 5 10:57:38 838027 shellfish derived food,medi cation Not available Not available Not available 09/23/2024 79753 ROGELIO MARCOS [facility] 5 10:57:46 Medications Name Sig Start Date Stop Date Status Note LastModified by Organization Details LastModified Time medbox status USE DIRECTED active Not Available Not Available No t Available verapamil ER (SR) 120 mg tablet,exten ded release TAKE ONE TABLET EVERY NIGHT AT BEDTIME (FOR MIGRAINE) active Not Available Not Available No t Available multivitamin tablet TAKE ONE TABLET AT NOON active Not Available Not Available No t Available celecoxib 200 mg capsule TAKE 1 CAPSULE BY MOUTH TWICE DAILY active Not Available Not Available No t Available cyclobenzapr ine 10 mg tablet TAKE 1 TABLET BY MOUTH THREE TIMES DAILY FOR 14 DAYS active Not Available Not Available Not Available methocarbamo l 500 mg tablet active Not Available Not Available Not Available Vitamin B-2 100 mg tablet TAKE TWO TABLETS TWICE DAILY AT NOON AND BEDTIME active Not Available Not Available No t Available terconazole 0.4 % vaginal cream INSERT 1 APPLICATORF UL VAGINALLY AT BEDTIME FOR 7 DAYS active Not Available Not Available N ot Available prednisone 10 mg tablet TAKE 6 TABLETS BY MOUTH DAILY FOR 1 DAY THEN TAKE 4 TABLETS BY MOUTH DAILY FOR 2 DAYS THEN TAKE 2 TABLETS BY MOUTH DAILY FOR 2 DAYS active Not Available Not Available N ot Available ketoconazole 2 % shampoo APPLY TO THE AFFECTED AREA(s) EVERY DAY, LATHER, LEAVE ON FOR 5 MINUTES, THEN RINSE OFF WITH WATER active Not Available Not Available No t Available haloperidol 5 mg tablet TAKE ONE TABLET EVERY MORNING and TAKE TWO TABLETS EVERY DAY AT BEDTIME active Not Available Not Available N ot Available albuterol sulfate 2.5 mg/3 mL (0.083 %) solution for nebulization INHALE ONE AMPULE USING A NEBULIZER EVERY SIX HOURS active Not Available Not Available No t Available cetirizine 10 mg tablet TAKE 1 TABLET BY MOUTH EVERY DAY active Not Available Not Available No t Available atorvastatin 10 mg tablet TAKE ONE TABLET EVERY NIGHT AT BEDTIME active Not Available Not Available N ot Available azithromycin 250 mg tablet TAKE 2 TABLETS BY MOUTH FOR 1 DAY THEN TAKE 1 TABLET BY MOUTH DAILY FOR 4 DAYS active Not Available Not Available N ot Available ibuprofen 800 mg tablet active Not Available Not Available Not Available ketotifen 0.025 % (0.035 %) eye drops active Not Available Not Available No t Available sucralfate 100 mg/mL oral suspension TAKE 10ml's BY MOUTH FOUR TIMES DAILY, shake WELL active Not Available Not Available N ot Available Tegretol XR 200 mg tablet,exten ded release TAKE TWO TABLETS TWICE DAILY IN THE MORNING AND AT BEDTIME active Not Available Not Available N ot Available prednisone 20 mg tablet active Not Available Not Available Not Available sertraline 100 mg tablet TAKE ONE TABLET EVERY MORNING active Not Available Not Available No t Available topiramate 25 mg tablet TAKE 1 TO 2 TABLETS BY MOUTH AT BEDTIME active Not Available Not Available No t Available phentermine 37.5 mg tablet TAKE ONE TABLET EVERY MORNING BEFORE BREAKFAST active Not Available Not Available No t Available peg-electrol yte solution 420 gram oral solution MIX AND DRINK 240ML DIRECTED EVERY 15 MINUTES active Not Available Not Available No t Available minoxidil 2.5 mg tablet TAKE ONE TABLET EVERY MORNING active Not Available Not Available No t Available aspirin 81 mg tablet,delay ed release TAKE 1 TABLET BY MOUTH EVERY NIGHT AT BEDTIME active Not Available Not Available No t Available tramadol 50 mg tablet TAKE 1 TABLET BY MOUTH EVERY 6 HOURS NEEDED FOR PAIN active Not Available Not Available No t Available triamcinolon e acetonide 0.1 % topical cream APPLY A THIN LAYER TO THE AFFECTED AREA(s) ONCE DAILY active Not Available Not Available N ot Available zolmitriptan 5 mg tablet active Not Available Not Available Not Available acetaminophe n ER 650 mg tablet,exten ded release TAKE ONE TABLET BY MOUTH EVERY 8 HOURS NEEDED active Not Available Not Available No t Available prednisolone acetate 1 % eye drops,suspen dalia SHAKE LIQUID AND INSTILL 1 DROP IN RIGHT EYE FOUR TIMES DAILY AFTER LASER TREATMENT FOR 4 DAYS THEN STOP active Not Available Not Available No t Available magnesium oxide 400 mg (241.3 mg magnesium) tablet TAKE ONE TABLET EVERY NIGHT AT BEDTIME active Not Available Not Available N ot Available vitamin A 3,000 mcg (10,000 unit) capsule TAKE ONE CAPSULE EVERY MORNING active Not Available Not Available No t Available amitriptylin e 10 mg tablet TAKE 1-2 TABLETS BY MOUTH DAILY AT BEDTIME active Not Available Not Available N ot Available pantoprazole 40 mg tablet,delay ed release TAKE 1 TABLET BY MOUTH DAILY active Not Available Not Available Not Available erythromycin 5 mg/gram (0.5 %) eye ointment APPLY A SMALL AMOUNT INTO BOTH EYES FOUR TIMES DAILY TO INCISION FOR 1 WEEK THEN STOP active Not Available Not Available No t Available ferrous sulfate 325 mg (65 mg iron) tablet TAKE ONE TABLET AT NOON active Not Available Not Available No t Available Banophen 25 mg tablet TAKE ONE TABLET ONCE ONE HOUR prior TO contrast active Not Available Not Available No t Available esomeprazole magnesium 40 mg capsule,daniella yed release TAKE 1 CAPSULE BY MOUTH TWICE DAILY active Not Available Not Available No t Available neomycin-alisa ymyxin-dexam eth 3.5 mg/mL-10,000 unit/mL-0.1% eye drops SHAKE LIQUID AND INSTILL 1 DROP IN BOTH EYES FOUR TIMES DAILY FOR 2 WEEKS THEN STOP active Not Available Not Available No t Available triamcinolon e acetonide 0.1 % topical ointment APPLY TO THE AFFECTED AREA(S) TWICE DAILY active Not Available Not Available Not Available clotrimazole -betamethaso ne 1 %-0.05 % topical cream APPLY TO THE SKIN OF THE AFFECTED EXTERNAL EAR CANAL WITH FINGERTIP THREE TIMES DAILY FOR 2 WEEKS active Not Available Not Available No t Available cabergoline 0.5 mg tablet TAKE 2 TABLETS BY MOUTH ON ONE DAY OF THE WEEK AND TAKE 3 TABLETS BY MOUTH ON ANOTHER DAY OF THE WEEK active Not Available Not Available Not Available indomethacin 50 mg capsule TAKE 1 CAPSULE BY MOUTH WITH BREAKFAST AND EVENING MEAL active Not Available Not Available No t Available fluocinolone 0.01 % topical body oil APPLY TO THE AFFECTED AREA(S) THREE TIMES DAILY active Not Available Not Available No t Available pyridoxine (vitamin B6) 50 mg tablet TAKE 1 TABLET BY MOUTH TWICE DAILY active Not Available Not Available No t Available omeprazole 20 mg capsule,daniella yed release TAKE 1 CAPSULE BY MOUTH TWICE DAILY active Not Available Not Available No t Available montelukast 10 mg tablet TAKE ONE TABLET EVERY NIGHT AT BEDTIME active Not Available Not Available N ot Available hydroxyzine HCl 25 mg tablet TAKE ONE TABLET EVERY NIGHT AT BEDTIME active Not Available Not Available N ot Available azelastine 137 mcg (0.1 %) nasal spray USE 2 SPRAYS IN EACH NOSTRIL DAILY NEEDED FOR ALLERGIES active Not Available Not Available No t Available haloperidol 2 mg tablet TAKE ONE TABLET EVERY MORNING and TAKE TWO TABLETS EVERY DAY AT BEDTIME active Not Available Not Available N ot Available ondansetron 4 mg disintegrati ng tablet DISSOLVE ONE TABLET ON TONGUE EVERY 8 HOURS NEEDED active Not Available Not Available No t Available finasteride 5 mg tablet TAKE ONE TABLET DAILY active Not Available Not Available No t Available naproxen 500 mg tablet active Not Available Not Available No t Available Ventolin HFA 90 mcg/actuatio n aerosol inhaler INHALE TWO PUFFS EVERY 6 HOURS active Not Available Not Available No t Available verapamil ER 120 mg 24 hr capsule,exte nded release TAKE 1 CAPSULE BY MOUTH DAILY AT BEDTIME active Not Available Not Available N ot Available esomeprazole magnesium 20 mg capsule,daniella yed release TAKE ONE CAPSULE EVERY MORNING ONE HOUR BEFORE BREAKFAST. DO NOT BREAK, CRUSH, DISSOLVE OR CHEW active Not Available Not Available No t Available atomoxetine 18 mg capsule TAKE 1 CAPSULE EVERY MORNING FOR 7 DAYS THEN INCREASE TO TAKE ONE CAPSULE IN THE MORNING AND EVENING active Not Available Not Available Not Available atomoxetine 25 mg capsule TAKE ONE CAPSULE IN THE MORNING AND EVENING active Not Available Not Available Not Available clonazepam 2 mg disintegrati ng tablet TAKE 1 TABLET NEEDED FOR SEIZURE LASTING MORE THAN 2 MINUTES AND CALL 911 active Not Available Not Available No t Available Premarin 0.625 mg/gram vaginal cream INSERT 0.5 GRAM VAGINALLY TWICE PER WEEK DIRECTED active Not Available Not Available No t Available bupropion HCl XL 150 mg 24 hr tablet, extended release TAKE ONE TABLET EVERY MORNING active Not Available Not Available No t Available Advair HFA 115 mcg-21 mcg/actuatio n aerosol inhaler USE 2 INHALATIONS BY MOUTH TWICE DAILY active Not Available Not Available Not Available Advair HFA 230 mcg-21 mcg/actuatio n aerosol inhaler USE 2 INHALATIONS BY MOUTH TWICE DAILY active Not Available Not Available Not Available calcium 600 mg (as carbonate)-v itamin D3 10 mcg (400 unit) tablet TAKE ONE TABLET TWICE DAILY AT NOON AND IN THE EVENING active Not Available Not Available No t Available FreeStyle Lite Strips TEST BLOOD SUGAR TWICE DAILY active Not Available Not Available No t Available cholecalcife rol (vitamin D3) 50 mcg (2,000 unit) capsule TAKE THREE CAPSULES DAILY AT NOON active Not Available Not Available No t Available [facility] with Large Mask USE DIRECTED TWICE DAILY active Not Available Not Available Not Available Easy Touch Twist Lancets 33 gauge TEST BLOOD SUGAR TWICE DAILY active Not Available Not Available No t Available Aimovig Autoinjector 140 mg/mL subcutaneous auto-injecto r INJECT 140 mg's SUBCUTANEOU SLY ONCE PER MONTH active Not Available Not Available No t Available Ajovy 225 mg/1.5 mL subcutaneous auto-injecto r active Not Available Not Available Not Available Wegovy 0.25 mg/0.5 mL subcutaneous pen injector ADMINISTER 0.25 MG UNDER THE SKIN 1 TIME A WEEK FOR 4 DOSES active Not Available Not Available No t Available Vitals Date Recorded Body height Body mass index (BMI) Body weight Provider Name and Address Organization Details Last Updated DateTime 08/23/2024 160.02 cm 31.7 kg/m2 22318.03 g Eloisa Munson [facility] 08/23/2024 09:01:46 Date Recorded Body height Body mass index (BMI) Body weight Provider Name and Address Organization Details Last Updated DateTime 09/23/2024 160.02 cm 31.7 kg/m2 22144.03 g LILO MARCOS [facility] 09/23/2024 10:57:13 Date Recorded Body height Body mass index (BMI) Body weight Provider Name and Address Organization Details Last Updated DateTime 11/06/2024 160.02 cm 31.9 kg/m2 19473.63 g Toma Hall [place] - [facility] 11/06/2024 10:39:22 Social History None recorded. Functional Status None recorded. Mental Status None recorded. Family History Nothing Reported. Medical History Condition Response Anxiety/Depression Y Arthritis Y Headaches Y Breathing or lung disorders Y Thyroid Problems Y Anemia Y Cholesterol Y Seizures/Epilepsy Y Gynecological HistoryNo gynecological history recorded. Obstetrics History GPAL:G 0 P 0 0 0 0 Past Encounters Encounter ID Performer Location Encounter Start Date Encounter Closed Date Diagnosis/Indication Diagnosis SNOMED-CT Code Diagnosis ICD10 Code Diagnosis Note [id number] DARINEL KEARNS [address] [place] [address] 08/23/2024 08:53:26 09/05/2024 10:00:50 Acute back pain with sciatica 631598719 M54.41 [id number] DARINEL KEARNS [address] [place] [address] 09/23/2024 10:00:46 10/01/2024 14:00:20 Lumbar radiculopathy 835044871 M54.16 [id number] DARINEL [facility] [address] [place] [address] 11/06/2024 10:28:24 11/21/2024 10:01:49 Hip pain 75409149 M25.551 Femoral ac etabular impingement of right hip joint 7976230660 205751 M25.851 Health Concerns Section Related Observation LastModified by Organization Detai ls LastModified Time None Recorded Concern Status LastModified by Organization Details LastModified Time None Recorded Advance Directives Directive None Recorded Payers Encounter Date Sequence Insurance Name Policy Number Policy Farrell Covered Member ID Farrell Member ID Guarantor Name 08/23/2024 1 [place] [employer] [facility]ICAID[id number] Fernandez 09/23/2024 1 [place]ICAID) [facility] Fernandez [id number] [facility] Fernandez 11/06/2024 1 [place] [facility] (MEDICAID) Radha Fernandez [id number] Radha Fernandez Notes Date Note Type Note Provider Name and Address Organization Details Recorded Time 08/23/2024 text/html I am seeing the patient today under the supervision of Dr. Paz who was available but who did not see the patient. HPI: Patient is a pleasant 53-year-old female presents for evaluation of ongoing low back pain. Patient reports bilateral radiating leg pain, paresthesias and weakness left greater than right. Standing and walking worse than sitting. No clear etiology. Worsening over time. Rates pain moderate to severe. Denies bowel or bladder dysfunction. Patient endorses treatments to date have been injections in her spine greater than 3 years ago injections into her hip. She is being followed by her primary care physician as well as [facility]. She previously has trialed muscle relaxers she did physical therapy at the beginning of 2023 without significant alleviation of symptoms or weakness. Patient states she is not currently taking any medications for this she does report a history of utilizing anti-inflammatories but has to stomach ulcers. TREATMENTS: As noted in HPI Past family, medical, social history and review of systems has been reviewed, updated and signed by me and is located in the patient? ? ?s chart. Seizure history she no longer drives Examination: The patient is well appearing, alert and oriented x3 and in no acute distress. Gait is antalgic. Patient is able to transition from seated to standing position with difficulty.Inspection of the spine reveals no step off, deformity or overlying skin changes or atrophy.The spine is nontender over the paravertebral musculature. Nontender over TFL, greater trochanters or posterior hip musculature.Range of motion of the Lumbar spine is 60% of normal.Range of motion of the hips and knees is full with discomfort noted bilaterally on straight leg raise radicular symptoms are reproducedStrength in right lower extremity myotomes 5/5. Strength in the left lower extremity myotomes 4/5Sensation intact.Re? e xes normal 2+at knee and ankle.No ankle clonus X-rays ordered, obtained and reviewed at [facility], 2 views of the lumbar spine reveals no fractures, instability or bony lesions. Degenerative disc disease noted. Most pacifically facet arthropathy throughout the lumbar spine there is some loss of disc height. Impression/Plan: Low back pain with radicular symptoms discussed with the patient at this time I would recommend moving forward with an MRI if she is trialed and failed multiple conservative treatment measures and has significant weakness on exam today along the left lower extremity. An MRI to evaluate lumbar radiculopathy was ordered in office today. Patient was given a new prescription for cyclobenzaprine 10 mg we discussed taking this at bedtime first to assess the drowsiness that may be caused by this. She can take this up to 3 times a day risk and benefits of this medication were discussed she will follow-up in 3 to 4 weeks for MRI review. [employer] speech recognition community resource officer software was used to create portions of this document. An attempt at proofreading has been made to minimize errors. Please call for corrections. EDUARDO VELASQUEZ PA-C [address], [place], [address], [facility] 08/23/2024 10:48:40 09/23/2024 text/html I am seeing the patient today under the supervision of Dr. Paz who was available but who did not see the patient. HPI: Patient is a pleasant 53-year-old female presents for evaluation of ongoing low back pain. SHe presents today in follow up for MRI review. Patient reports bilateral radiating leg pain, paresthesias and weakness left greater than right. Standing and walking worse than sitting. No clear etiology. Worsening over time. Rates pain moderate to severe. Denies bowel or bladder dysfunction. TREATMENTS: As noted in HPI Past family, medical, social history and review of systems has been reviewed, updated and signed by me and is located in the patient? ? ?s chart. Seizure history she no longer drives Examination: The patient is well appearing, alert and oriented x3 and in no acute distress. Gait is antalgic. Patient is able to transition from seated to standing position with difficulty.Inspection of the spine reveals no step off, deformity or overlying skin changes or atrophy.The spine is nontender over the paravertebral musculature. Nontender over TFL, greater trochanters or posterior hip musculature.Range of motion of the Lumbar spine is 60% of normal.Range of motion of the hips and knees is full with discomfort noted bilaterally on straight leg raise radicular symptoms are reproducedStrength in right lower extremity myotomes 5/5. Strength in the left lower extremity myotomes 4/5Sensation intact.Re? e xes normal 2+at knee and ankle.No ankle clonus Cursory hip evaluation today tenderness along the hip flexor tendon as well as anterior joint line. Patient has pain with flexion activity specifically with straight leg raise. Is able to resist against force but hip flexion. Internal and external rotation of the hip is provocative today. MRI dated 08/28/2024 independent reviewed in office today with the patient indicative of L2-L3 disc herniation without canal stenosis, minimal foraminal narrowing. L3-L4 mild disc herniation without central stenosis mild foraminal narrowing bilaterally. L4-L5 mild herniation no central stenosis minimal right and mild left foraminal narrowing. Impression/Plan: Low back pain with radicular symptoms discussed with the patient at this time I would recommend moving forward with injection therapy again at this time. She has had these done at [facility] in the past and is interested in trialing another office at this time. A formal referral was sent to [facility] pain management in office today. Patient will follow-up with myself in 3 to 4 months. At the end of the appointment patient also started to describe signs and symptoms of hip flexor tendinitis on the right side was referred to a sports physician sales operations assistant for follow-up of her right hip. [employer] speech recognition community resource officer software was used to create portions of this document. An attempt at proofreading has been made to minimize errors. Please call for corrections. EDUARDO VELASQUEZ PA-C [address] [place] [address] [address], [place], [address], [facility] 09/23/2024 11:41:52 11/06/2024 text/html I am seeing the patient today under the supervision of {{Sridhar Burnett ivan [facility]#}} who was available but who did not see the patient. HPI: 53-year-old female patient presents today for right hip pain ongoing for several years, denies injury. She reports ongoing right sided lower back pain. Localizes pain in her hip to her groin. She reports history of trochanteric bursa injection in May at [facility] that did provide her with relief of her lateral hip pain. Pain is worse at night when laying flat on her back, she notes she just feels throbbing in her right lower back and groin. Denies previous physical therapy for her hip. Denies bladder or bowel incontinence. She has been evaluated by one of my spine colleagues recently for lower back apin, left more than right sided and referred for lumbar spine injections. She has not followed up with pain management yet. Past family, social history and review of systems has been reviewed, updated and is located in the patient? s chart. X-RAYS: 2v X-rays of the {{Right* Left Bilatera l}} hip were ordered, obtained and reviewed today at [facility] demonstrates minimal joint space narrowing. IMPRESSION: 1. {{Right* Left Bilatera l}} hip femoroacetabular impingement mild trochanteric bursitis2. Lumbago? r ight sided PLAN: Findings reviewed. Discussed her pain appears multifactorial nature. Recommended she follow-up with [facility] pain management, referral was resent and phone number information was provided to her today to discuss injection therapy for her back. Regarding her hip, on physical exam testing today most of her pain appears to be intra-articular. Recommended initial treatment with physical therapy. Also recommended she complete injection therapy for her lumbar spine. Recommended follow-up in 3 months for ongoing treatment discussion, could possibly consider a diagnostic and therapeutic right hip intra-articular cortisone injection depending on her symptoms at that time. All of her concerns are addressed and she understands and agrees with the plan. Intra-articular speech recognition community resource officer software was used to create portions of this document. An attempt at proofreading has been made to minimize errors. Please call for corrections. Meron Cowart PA-C [address], [place], [address], [place] [facility] 11/06/2024 11:45:09 OBGyn Episode No OBEpisode recorded.
--- OUTSIDE RECORDS SUMMARY | 2024-11-28 16:32 | XMS_ITS | Encounter Summary ---
Author Organization [employer] Address [address] [place] [address] Care Team Providers Care Plate Keeper Name Role Phone Gabbie Cisneros MD Primary Care Provider [phone] Encounter Details Date Type Department Care Team ([facility] st Contact Info) Description 10/16/2023 Telephone [facility] CHC MED & PEDS [address] [place], [place] [phone] Gabbie Cisneros MD [address] [place] [address] Social History Tobacco Use Types Packs/Day Years [...] Description 01/22/2025 10:15 AM EDT Office Visit [facility] CH[facility] MED & PEDS [address], [place] [phone] Gabbie Cisneros MD [address] [place] [address] documented as of this encounter Goals Goal [...] documented as of this encounter Care Teams Plate Keeper Relationship Specialty Start Date End Date Gabbie Cisneros MD [address] [place] [address] PCP - General Family Medicine 05/02/18 Saloni Kaminski Electric Meter SetterSupervisor Fabrication And Assembly 05/19/23 Rosemarie Palmer [address] [place] [address] Nurse Practitioner Neurology 09/18/23 Milad Mcfarland Electric Meter SetterSupervisor Fabrication And Assembly 10/01/24 documented as of this encounter
--- OUTSIDE RECORDS SUMMARY | 2024-11-28 16:32 | XMS_ITS | Encounter Summary ---
Author Organization [employer] Address [address] [place] [address] Care Team Providers Care Shot Peening Operator Name Role Phone Gabbie Cisneros MD Primary Care Provider [phone] Reason for Visit * Reason Comments Med Refill Encounter Details Date Type Department Care Team ([facility] st Contact Info) Description 04/08/2024 Refill [facility] CHC MED & PEDS [address] [place] [address] Gabbie Cisneros MD [address] [place] [address] Social History Tobacco Use Types Packs/Day Years [...] Description 01/22/2025 10:15 AM EDT Office Visit [facility] MED & PEDS [address] [place] [address] Gabbie Cisneros MD [address] [place] [address] documented as of this encounter Goals Goal [...] documented as of this encounter Care Teams Shot Peening Operator Relationship Specialty Start Date End Date Gabbie Cisneros MD [address] [place] [address] PCP - General Family Medicine 05/02/18 Saloni Kaminski Convention WorkerHydrographical Technical Officer 05/19/23 Rosemarie Palmer [address] [place] [address] Nurse Practitioner Neurology 09/18/23 Milad Mcfarland Convention WorkerHydrographical Technical Officer 10/01/24 documented as of this encounter
--- OUTSIDE RECORDS SUMMARY | 2024-11-28 16:32 | XMS_ITS | Encounter Summary ---
Author Organization [employer] Address [address] 7[address] [place] [address] Care Team Providers Care Dissolver Operator Name Role Phone Gabbie Cisneros MD Primary Care Provider [phone] Encounter Details Date Type Department Care Team (Late st Contact Info) Description 01/19/2024 Orders Only [facility] CHC MED & PEDS [address] [place] [address] Provider, MD [place] Social History Tobacco Use [...] Description 01/22/2025 10:15 AM EDT Office Visit [facility] CHC MED & PEDS [address] [place], [place] [phone] Gabbie Cisneros MD [address] [place] [address] documented as of this encounter Goals Goal [...] Pulmonary function testing (10/10/2023 9:02 AM EST) Historical Provider MD PFT ORDERABLES Final Res ult documented in this encounter Visit Diagnoses Not on filedocumented in this encounter Additional Health Concerns Assessment Noted Time PHQ-9 Depression Total Score: 7 10/30/19 24 9:31 AM EDT documented as of this encounter Care Teams Dissolver Operator Relationship Specialty Start Date End Date Gabbie Cisneros MD [address] [place] [address] PCP - General Family Medicine 05/02/18 Saloni Kaminski Inspector Raw QuartzSanitation Worker Cleaning Machinery 05/19/23 Rosemarie Palmer [address] [place] [address] Nurse Practitioner Neurology 09/18/23 Milad Mcfarland Inspector Raw QuartzSanitation Worker Cleaning Machinery 10/01/24 documented as of this encounter
--- OUTSIDE RECORDS SUMMARY | 2024-11-28 16:32 | XMS_ITS | Clinical Summary ---
Author Organization [address] [facility] Address [address] [place] [address] Phone Care Team Providers Care Fire Management Specialist Name Role Phone Gabbie Cisneros MD Primary Care Provider [phone] Allergies Active Allergy Reactions Criticality Noted Date [...] s of breath High 10/26/2017 Shellfish Allergy [place] 03/24/2024 Watermelon Shortness of breath High 07/30/2022 [...] up to 90 days. 10/27/19 18 Active mhdie-O-lmhvfhehk dase (BEANO ORAL) CLSAN-B-HKNGSOXP IDASE (BEANO) TAB : Take 1 tablet [...] Capsule by mouth once a week. 01/27/20 23 Active cyclobenzaprine (FLEXERIL) 10 mg tablet Take [...] 8 hours as needed for Nausea. 04/10/20 20 Active OneTouch UltraSoft Lancets 2 times daily. [...] WELL 1200 mL 3 09/11/19 25 Active albuterol HFA (Ventolin HFA) 90 mcg/actuation inhaler Inhale 2 puffs by mouth every 6 (six) hours if needed for wheezing. 1 each 1 10/31/19 25 025 Active Active Problems Problem Noted Date Diagnosed Date Anemia 06/07/2024 Controlled diabetes mellitus type II without complication ([facility] V24, [facility] V28) 06/07/2024 Depression with anxiety 06/07/2024 Fibromyalgia 06/07/2024 Hypertension 06/07/2024 Class 1 obesity due to exces s calories with serious comorbidity and body mass index (BMI) of 33.0 to 33.9 in adult 06/07/2024 Severely overweight 12/03/2019 Intestinal malabsorption following gastrectomy 0 09/03/2019 Migraine with aura 03/12/2019 Spondylosis of lumbar region without myelopathy or radiculopathy 01/24/2018 Pituitary microadenoma ([facility] V24, [facility] V28 ) 10/26/2017 Encounters Date Type Department Care Team Description 10/29/2024 Telephone Pulmonolgy - [place] [address] [facility] [address] [place] [address] Zari Diaz MD Med Refill from Last 3 Months Immunizations Name Administration Dates Next Due Pfizer (ages 12 & older) DESII S-CoV-2 COVID-19, mRNA, LNP-S, adelina-sucrose, preservative free 11/12/2021 Pfizer SARS-CoV-2 COVID-19, mRNA, LNP-S, preservative free 01/01/2021,12/11/2020 Pneumococcal polysaccharide 23 valent (Pneumovax 23) 2yo and older 02/05/2018 Medical History Medical History Date Comments Asthma DX:Asthma Seizure ([facility] V24, [facility] V28) DX:Seizure ([facility]) Hypoglycemia DX:Hypoglycemia Social History Tobacco Use Types Packs/Day Years Used Date Smoking Tobacco: Never Smokeless Tobacco: Former Comments Unknown Sex and Gender Information Value Date Recorded Sex Assigned at Female 07/16/2024 5:02 PM EST Legal Sex Female 4:57 PM EST Gender Identity Female 11/28/2024 10:28 AM EDT Sexual Orientation Straight 11/28/2024 10 :28 AM EDT Obstetrics History Last Filed Vital Signs Vital [...] Care Team (Late st Contact Info) Description 12/01/2024 11:30 AM EDT Appointment [facility] Ultrasound [address] [place] [phone] 12/26/2024 11:15 AM EDT Office Visit Bariatric Surgery - [place] [address] [phone] Will Verduzco MD [address] [address] Health Maintenance Due Date Last Done Comments [...] Vaccine ( season) 2024 11/12/2021, 01/01/2021, 12/11/2020 Depression Screening 01/29/2025 01/30/2024 Influenza Vaccine (Season Ended) 2025 08/04/2023, 05/11/2022, 07/02/2021, Additional history exists Diabetes: Annual GFR (Glomerular Filtration Rate) 06/14/2025 [...] age to complete this topic Meningococcal B Vaccine Aged Out No l onger eligible based on patient's age to complete [...] Health Maintenance Results * Hemoglobin A1c (09/26/2023) [facility] Hemoglobin A1C 5.1 <=6.5 % Blood Venous blood specimen / Unknown Result [facility] Provider LAB BLOOD ORDERABLES Awa l Result * Annual BMP Blood Test (08/25/2023) Pathologist [facility] Annual BMP Blood Test Abstracted [facility] Provider HEALTH MAINTENANCE Final Result * Colonoscopy (05/13/2020) [facility] Colonoscopy Abstracted, No interpretation Anatomical Region Laterality Modality Other Result [facility] Provider HEALTH MAINTENANCE Final Result * Cervical Cancer Screening: HPV (04/09/2018) [facility] Cervical Cancer Screening: HPV Abstracted ,Negative [facility] Provider HEALTH MAINTENANCE Final Result * Urine Albumin Creatinine Ratio (12/06/2017) Pathologist [facility] Urine Albumin Creatinine Ratio Abstracted [facility] Provider HEALTH MAINTENANCE Final Result * Lipid panel (12/06/2017) [facility] LDL/HDL Ratio 3 0 - 4 Triglycerides 140 0 - 150 mg/dL Cholesterol 190 0 - 200 mg/dL HDL 75 >=40 mg/dL LDL Cholesterol 87 0 - 100 mg/dL Blood Venous blood specimen / Unknown us Historical Provider LAB BLOOD ORDERABLES Awa l Result from Last 3 Months or Most Recently Relevant to Health Maintenance Insurance MEDICAID - [place] Care Teams Fire Management Specialist Relationship Specialty Start Date End Date Gabbie Cisneros MD [address] [place] [address] PCP - General 11/17/18
--- OUTSIDE RECORDS SUMMARY | 2024-11-28 16:32 | XMS_ITS | Encounter Summary ---
Author Organization [employer] Address [address] [place] [address] Care Team Providers Care Papier Mache Molder Name Role Phone Gabbie Cisneros MD Primary Care Provider [phone] Encounter Details Date Type Department Care Team (Latest Contact Info) Description 11/28/2024 Travel Social History Tobacco Use Types Packs/Day [...] Description 01/22/2025 10:15 AM EDT Office Visit [facility] CHC MED & PEDS [address] [place] [address] Gabbie Cisneros MD [address] [place] [address] documented as of this encounter Goals Goal [...] documented as of this encounter Care Teams Papier Mache Molder Relationship Specialty Start Date End Date Gabbie Cisneros MD [address] [place] [address] PCP - General Family Medicine 05/02/18 Saloni Kaminski Actionscript DeveloperMotor Vehicle Emissions Inspector 05/19/23 Rosemarie Palmer [address] [place] [address] Nurse Practitioner Neurology 09/18/23 Milad Mcfarland Actionscript DeveloperMotor Vehicle Emissions Inspector 10/01/24 documented as of this encounter
--- OUTSIDE RECORDS SUMMARY | 2024-11-28 16:32 | XMS_ITS | Encounter Summary ---
Author Organization [employer] Address [address] [facility] 7t [place] [address] Care Team Providers Care Asbestos Worker Helper Name Role Phone Gabbie Cisneros MD Primary Care Provider [phone] Encounter Details Date Type Department Care Team (Late st Contact Info) Description 12/18/2023 Orders Only [facility] [address] [place] [address] Provider, MD [place] Social History Tobacco Use [...] Description 01/22/2025 10:15 AM EDT Office Visit [facility] CHC MED & PEDS [address] [place], [place] [phone] Gabbie Cisneros MD [address] [place] [address] documented as of this encounter Goals Goal [...] Laterality Modality Body, Chest Computed Tomogra phy Historical Provider MD [place] CT PROCEDURES Final R esult documented in this encounter Visit Diagnoses Not on filedocumented in this encounter Additional Health Concerns Assessment Noted Time PHQ-9 Depression Total Score: 7 10/30/19 24 9:31 AM EDT documented as of this encounter Care Teams Asbestos Worker Helper Relationship Specialty Start Date End Date Gabbie Cisneros MD [address] [place] [address] PCP - General Family Medicine 05/02/18 Saloni Kaminski PerforatorWasher Engineer 05/19/23 Rosemarie Palmer [address] [place] [address] Nurse Practitioner Neurology 09/18/23 Milad Mcfarland PerforatorWasher Engineer 10/01/24 documented as of this encounter
--- OUTSIDE RECORDS SUMMARY | 2024-11-28 16:32 | XMS_ITS | Encounter Summary ---
Author Organization [employer] Address [address] [place] [address] Care Team Providers Care Lumber Loader Name Role Phone Gabbie Cisneros MD Primary Care Provider [phone] Reason for Visit * Reason Comments Med Refill Encounter Details Date Type Department Care Team ([facility] st Contact Info) Description 04/11/2024 Refill [facility] CHC MED & PEDS [address] [place] [address] Gabbie Cisneros MD [address] [place] [address] Social History Tobacco Use Types Packs/Day Years [...] Description 01/22/2025 10:15 AM EDT Office Visit [facility] MED & PEDS [address] [place] [address] Gabbie Cisneros MD [address] [place] [address] documented as of this encounter Goals Goal Patient Goal Type Associated Problems Recent Progress Patient-Stated? Author Patient will adhere to medication regimen General No Jerry [place], PharmD Help patient manage asthma General No Jeryr [place], PharmD Note: Reduce use of LUANNE to 2x/week documented as of this encounter Visit Diagnoses Not on filedocumented in this encounter Additional Health Concerns Assessment Noted Time PHQ-9 Depression Total Score: 10 024 9:42 AM EDT documented as of this encounter Care Teams Lumber Loader Relationship Specialty Start Date End Date Gabbie Cisneros MD [address] [place] [address] PCP - General Family Medicine 05/02/18 Saloni Kaminski Services AdvisorConcrete Products Dispatcher 05/19/23 Rosemarie Palmer [address] [place] [address] Nurse Practitioner Neurology 09/18/23 Milad Mcfarland Services AdvisorConcrete Products Dispatcher 10/01/24 documented as of this encounter
--- OUTSIDE RECORDS SUMMARY | 2024-11-28 16:32 | XMS_ITS | Encounter Summary ---
Author Organization [employer] Address [address] [place] [address] Care Team Providers Care Collar Padder Blindstitch Name Role Phone Gabbie Cisneros MD Primary Care Provider [phone] Reason for Visit * Reason Onset Date Comments Referral 09/27/2024 Encounter Details Date Type Department Care Team ([facility] st Contact Info) Description 09/27/2024 Telephone [facility] MEDICINE [address] [place] [address] Gabbie Cisneros MD [address] [place] [address] Referral Social History Tobacco Use Types Packs/Day [...] PM EST Pt is already established with [facility] Rheumatology. Pt needs to call to schedule appt. * Telephone Encounter - Denny Hernandez - 09/27/2024 2:37 PM EST Tc from Milad Stating that pt is requesting a referral to Rheumatology. Contact Milad at [phone] documented in this encounter Plan of Treatment Upcoming Encounters Date Type Department Care Team (Late st Contact Info) Description 01/22/2025 10:15 AM EDT Office Visit [facility] MED & PEDS [address] [place] [address] Gabbie Cisneros MD [address] [place] [address] documented as of this encounter Goals Goal [...] documented as of this encounter Care Teams Collar Padder Blindstitch Relationship Specialty Start Date End Date Gabbie Cisneros MD [address] [place] [address] PCP - General Family Medicine 05/02/18 Saloni Kaminski Motor Bus DriverPatient Registration Specialist 05/19/23 Rosemarie Palmer [address] [place] [address] Nurse Practitioner Neurology 09/18/23 Milad Mcfarland Motor Bus DriverPatient Registration Specialist 10/01/24 documented as of this encounter
--- OUTSIDE RECORDS SUMMARY | 2024-11-28 16:32 | XMS_ITS | Encounter Summary ---
Author Organization [employer] Address [address] [facility] 7t [place] [address] Care Team Providers Care Scrap Piler Name Role Phone Gabbie Cisneros MD Primary Care Provider [phone] Reason for Visit * Reason Comments Med Refill Encounter Details Date Type Department Care Team ([facility] Contact Info) Description 02/09/2024 Refill [facility] CHC MED & PEDS [address] [place] [address] Rosalva Hidalgo MD [address] [place] [address] Lichen sclerosus Social History Tobacco Use Types [...] Description 01/22/2025 10:15 AM EDT Office Visit [facility] MED & PEDS [address] [place] [address] Gabbie Cisneros MD [address] [place] [address] documented as of this encounter Goals Goal [...] documented as of this encounter Care Teams Scrap Piler Relationship Specialty Start Date End Date Gabbie Cisneros MD [address] [place] [address] PCP - General Family Medicine 05/02/18 Saloni Kaminski Bulb SorterMachine Or Machinery Mechanic 05/19/23 Rosemarie Palmer [address] [place] [address] Nurse Practitioner Neurology 09/18/23 Milad Mcfarland Bulb SorterMachine Or Machinery Mechanic 2/11/25 documented as of this encounter
--- OUTSIDE RECORDS SUMMARY | 2024-11-28 16:32 | XMS_ITS | Encounter Summary ---
Author Organization [employer] Address [address] [facility] [address] [place] [address] Care Team Providers Care Collision Worker Name Role Phone Gabbie Cisneros MD Primary Care Provider [phone] Reason for Visit * Reason Onset Date Comments Call Back Request 12/21/2023 Encounter Details Date Type Department Care Team ([facility] st Contact Info) Description 12/21/2023 Telephone [facility] MEDICINE [address] [place] [address] Gabbie Cisneros MD [address] [place] [address] Call Back Request Social History Tobacco Use [...] and was told to call [facility] back account underwriter does not see anything noted on the patients chart documented in this encounter Plan of Treatment Upcoming Encounters Date Type Department Care Team (Late st Contact Info) Description 01/22/2025 10:15 AM EDT Office Visit [facility] MED & PEDS 505 [facility] [place] [address] Gabbie Cisneros MD [address] [facility] [place] [address] documented as of this encounter Goals Goal [...] documented as of this encounter Care Teams Collision Worker Relationship Specialty Start Date End Date Gabbie Cisneros MD [address] [place] [address] PCP - General Family Medicine 05/02/18 Saloni Kaminski Rock MasonDark Room Attendant 05/19/23 Rosemarie Palmer [address] [place] [address] Nurse Practitioner Neurology 09/18/23 Milad Mcfarland Rock MasonDark Room Attendant 10/01/24 documented as of this encounter
--- OUTSIDE RECORDS SUMMARY | 2024-11-28 16:33 | XMS_ITS | Encounter Summary ---
Author Organization [employer] Address [address] [facility] [address], [place] [address] Care Team Providers Care Requirements Manager Name Role Phone Gabbie Cisneros MD Primary Care Provider [phone] Encounter Details Date Type Department Care Team (Latest Contact Info) Description 08/19/2022 Orders Only [facility] MEDICINE [address] [place] [address] Rosalva Hidalgo MD 505 [place], [place] [phone] Hypercholesterolemia (Primary Dx) Social History Tobacco Use [...] Description 01/22/2025 10:15 AM EDT Office Visit [facility] MED & PEDS 505 [place], [place] [phone] Gabbie Cisneros MD 505 [place], [place] [phone] documented as of this encounter Visit Diagnoses Diagnosis Hypercholesterolemia- Primary Pure hypercholesterolemia documented in this encounter Care Teams Requirements Manager Relationship Specialty Start Date End Date Gabbie Cisneros MD [address] [place] [phone] PCP - General Family Medicine 05/02/18 Saloni Kaminski Material Requirements WorkerMedical Officer 05/19/23 Rosemarie Palmer [address] [place] [address] Nurse Practitioner Neurology 09/18/23 Milad Mcfarland Material Requirements WorkerMedical Officer 10/01/24 documented as of this encounter
--- OUTSIDE RECORDS SUMMARY | 2024-11-28 16:33 | XMS_ITS | Referral Summary ---
Author Organization [facility] Address [address] [place] [address] Care Team Providers Care Technology Coordinator Name Role Phone Gabbie Cisneros Primary Care Provider [phone] Allergies Active Allergy Reactions Criticality Noted Date [...] 1 tablet by mouth daily. Active FreeStyle [place] Lite meter TEST BLOOD SUGAR DIRECTED 06/24/20 [...] ONE TABLET AT BEDTIME 09/14/19 23 Active [id number]-Rr-px on-minerals tablet Take 1 tablet by mouth. [...] 10/31/2013 Type 2 diabetes mellitus without complication Social History Tobacco Use Types Packs/Day Years [...] 03/29/2024 1:53 PM EDT Plan of Treatment Not on file Procedures * Due to [place] [employer] law, this organization might not be sharing negative HIV tests. Procedure Name Priority Date/Time Associated Diagnosis Comments BASIC METABOLIC PANEL Routine 03/29/2024 3:51 PM EDT Pituitary microadenoma HEMOGLOBIN A1C Routine 10/07/2022 2:01 PM EST Type 2 diabetes mellitus without complication, without long-term current use of insulin from Last 3 Months or Most Recently Relevant to Health Maintenance Results * Due to [place] [employer] law, this organization might not be sharing negative HIV tests. * Basic Metabolic Panel (03/29/2024 3:51 PM EDT) NA 141 135 - 145 mmol/L 03/29/2024 5:29 PM EDT [facility] K 4.0 3.5 - 5.3 mmol/L 03/29/2024 5:29 PM EDT [facility] Cl 104 98 - 107 mmol/L 03/29/2024 5:29 PM EDT [facility] CO2 27 24 - 32 mmol/L 03/29/2024 5:29 PM EDT [facility] BUN 11 7 - 23 mg/dL 03/29/2024 5:29 PM EDT [facility] Creatinine 0.65 0.50 - 1.20 mg/dL 03/29/2024 5:29 PM EDT [facility] Glucose 98 65 - 99 mg/dL 03/29/2024 5:29 PM EDT [facility] Calcium 8.7 8.6 - 10.5 mg/dL 03/29/2024 5:29 PM EDT [facility] Anion Gap 10 5 - 15 03/29/2024 5:29 PM EDT [facility] eGFR >90 >=60 mL/min/1. 73m2 03/29/2024 5:29 PM EDT [facility] Comment:The estimated glomer ular [...] Sue NP LAB BLOOD ORDERABLES Final Result [facility] [address] [place] [address], * Hemoglobin A1c (10/07/2022 2:01 PM EST) Hemoglobin A1C 4.9 <5.7 % of total Hgb 10/08/2022 6:38 AM [facility] Comment: For the purpose of screening for the presence of diabetes: <5.7% ? Consistent with the absence of diabetes 5.7-6.4% ?Consistent with increased risk for diabetes ?(prediabetes) > or =6.5% ??Consistent with diabetes This assay result is consistent with a decreased risk of diabetes. Currently, no consensus exists regarding use of hemoglobin A1c for diagnosis of diabetes in children. According to [place] Diabetes Association (ADA) guidelines, hemoglobin A1c <7.0% represents optimal control in non- diabetic patients. Different metrics may apply to specific patient populations. Standards of Medical Care in Diabetes(ADA). ?? eAG (MG/DL) 94 mg/dL 10/08/2022 6:38 AM [facility] eAG (MMOL/L) 5.2 mmol/L 10/08/2022 6:38 AM [facility] Blood Structure of peripheral vein / Unknown Venipuncture / Unknown 10/07/2022 2:01 PM EST 10/07/2022 2:33 PM EST [facility] - 10/08/2022 6:38 AM EST [employer] Received Date: Zoila Sue TOOLS ADMINISTRATOR LAB BLOOD ORDERABLES Final Result MICHAEL VILLA [address] [facility] 3rd [address], [place] [address], [facility] [address] [facility] [address], [place] [address], from Last 3 Months or Most Recently Relevant to Health Maintenance Insurance [address] [place], [place] [address]HEALTH Care Teams Technology Coordinator Relationship Specialty Start Date End Date Gabbie Cisneros [address] [place] [address] [place] [address] PCP - General Family Medicine 06/15/22
--- OUTSIDE RECORDS SUMMARY | 2024-11-28 16:33 | XMS_ITS | Encounter Summary ---
Author Organization [employer] Address [address] [facility] [address] 7[address] [place] [address] Care Team Providers Care Industrial Maintenance Instructor Name Role Phone Gabbie Cisneros MD Primary Care Provider [phone] Reason for Visit * Reason Onset Date Comments Referral 04/09/2024 Encounter Details Date Type Department Care Team ([facility] st Contact Info) Description 04/09/2024 Telephone [facility] MED & PEDS [address] [place] [address] Gabbie Cisneros MD 505 [place] [address] Referral Social History Tobacco Use Types Packs/Day [...] Description 01/22/2025 10:15 AM EDT Office Visit [facility] MED & PEDS 505 [facility] [address] Gabbie Cisneros MD [address] [place] [address] documented as of this encounter Goals Goal [...] documented as of this encounter Care Teams Industrial Maintenance Instructor Relationship Specialty Start Date End Date Gabbie Cisneros MD [address] [place] [address] PCP - General Family Medicine 05/02/18 Saloni Kaminski Picker Box OperatorDecorating Machine Operator 05/19/23 Rosemarie Palmer [address] [place] [address] Nurse Practitioner Neurology 09/18/23 Milad Mcfarland Picker Box OperatorDecorating Machine Operator 10/01/24 documented as of this encounter
--- OUTSIDE RECORDS SUMMARY | 2024-11-28 16:33 | XMS_ITS | Encounter Summary ---
Author Organization [employer] Address [address] [facility] [address] 7[address] [place] [address] Care Team Providers Care Field Attendant Name Role Phone Gabbie Cisneros MD Primary Care Provider Reason for Visit * Reason Onset Date Comments Appointment Request 06/24/2024 Encounter Details Date Type Department Care Team ([facility] Contact Info) Description 06/24/2024 Telephone [facility] CHC MED & PEDS [address] [place] [address] Gabbie Cisneros MD [address] [place] [address] Appointment Request Social History Tobacco Use Types Packs/Day Years Used Date Smoking Tobacco: Never Smokeless Tobacco: Never Alcohol Use Standard Drinks/Week Comments Never 0 (1 standard drink = 0.6 oz pur e alcohol) Depression Answer Date Recorded Patient Health Questionnaire-9 Score 01/30/2024 Patient Health Questionnaire-9 Score 10 01/30/2024 [...] 10:15 AM EDT Office Visit [facility] MED & PEDS [address] [place] [address] Gabbie Cisneros MD [address] [place] [address] documented as of this encounter Goals Goal [...] documented as of this encounter Care Teams Field Attendant Relationship Specialty Start Date End Date Gabbie Cisneros MD [address] [place] [address] PCP - General Family Medicine 05/02/18 Saloni Kaminski Entry Level Financial AnalystHot Dip Galvanizer 05/19/23 Rosemarie Palmer [address] [place] [address] Nurse Practitioner Neurology 09/18/23 Milad Mcfarland Entry Level Financial AnalystHot Dip Galvanizer 10/01/24 documented as of this encounter
--- OUTSIDE RECORDS SUMMARY | 2024-11-28 16:33 | XMS_ITS | Clinical Summary ---
Author Organization [facility] Address [address] [place] [address] Care Team Providers Care Cnc Mill Operator Name Role Phone Gabbie Cisneros Primary Care Provider [phone] Allergies Active Allergy Reactions Criticality Noted Date [...] 1 tablet by mouth daily. Active FreeStyle [place] Lite meter TEST BLOOD SUGAR DIRECTED 06/24/20 [...] ONE TABLET AT BEDTIME 09/14/19 23 Active gpypjkiueufi-Se-ms on-minerals tablet Take 1 tablet by mouth. [...] 10/31/2013 Type 2 diabetes mellitus without complication Family History Medical History Relation Name Comments [...] 03/29/2024 1:53 PM EDT Plan of Treatment Health Maintenance Due [...] (2023-2 5 season) 2024 11/12/2021, 01/01/2021, 12/11/2020 Colon Cancer Screening 08/07/2024 FOBT / Fit Test 08/07/2024 08/07/2023, 07/18/2022 Alcohol/Substance Use Screening 08/21/2024 Depression Screening and Follow-Up 08/21/2024 Social Drivers of Health Gabriela ual Screening 08/21/2024 Basic Metabolic Panel 03/29/2025 03/29/2024 , 01/22/2024, 07/25/2023, Additional history exists Influenza Vaccine (Season Ended) 2025 08/04/2023, 05/11/2022, 07/02/2021, Additional history exists Cervical Cancer Screening 12/11/2026 Pap Smear 12/11/2026 12/12/2023, 04/09/2018 DTaP,Tdap,and Td Vaccines (3 - Td or Tdap) 04/16/2028 04/16/2018, 03/12/2013 RSV Vaccine (60+ years old a nd patients) (1 - 1-dose 75+ series) 2044 Hepatitis B Vaccines Completed 04/15/2014, 12/18/2013, 11/14/2013 Zoster Vaccines Completed 09/10/2020, 07/09/2020 Procedures * Due to [place] [employer] law, this organization might not be sharing negative HIV tests. Procedure Name Priority Date/Time Associated Diagnosis Comments BASIC METABOLIC PANEL Routine 03/29/2024 3:51 PM EDT Pituitary microadenoma HEMOGLOBIN A1C Routine 10/07/2022 2:01 PM EST Type 2 diabetes mellitus without complication, without long-term current use of insulin from Last 3 Months or Most Recently Relevant to Health Maintenance Results * Due to [place] [employer] law, this organization might not be sharing negative HIV tests. * Basic Metabolic Panel (03/29/2024 3:51 PM EDT) NA 141 135 - 145 mmol/L 03/29/2024 5:29 PM EDT [facility] K 4.0 3.5 - 5.3 mmol/L 03/29/2024 5:29 PM EDT [facility] Cl 104 98 - 107 mmol/L 03/29/2024 5:29 PM EDT [facility] CO2 27 24 - 32 mmol/L 03/29/2024 5:29 PM EDT [facility] BUN 11 7 - 23 mg/dL 03/29/2024 5:29 PM EDT [facility] Creatinine 0.65 0.50 - 1.20 mg/dL 03/29/2024 5:29 PM EDT [facility] Glucose 98 65 - 99 mg/dL 03/29/2024 5:29 PM EDT [facility] Calcium 8.7 8.6 - 10.5 mg/dL 03/29/2024 5:29 PM EDT [facility] Anion Gap 10 5 - 15 03/29/2024 5:29 PM EDT [facility] eGFR >90 >=60 mL/min/1. 73m2 03/29/2024 5:29 PM EDT [facility] Comment:The estimated glomer ular [...] 03/29/2024 4:43 PM EDT us Zoila Sue TONGUE STITCHER LAB BLOOD ORDERABLES Final Result [facility] [address] [place] [address], * Hemoglobin A1c (10/07/2022 2:01 PM EST) Hemoglobin A1C 4.9 <5.7 % of total Hgb 10/08/2022 6:38 AM EST [facility] Comment: For the purpose of screening for the presence of diabetes: <5.7% ? Consistent with the absence of diabetes 5.7-6.4% ?Consistent with increased risk for diabetes ?(prediabetes) > or =6.5% ??Consistent with diabetes This assay result is consistent with a decreased risk of diabetes. Currently, no consensus exists regarding use of hemoglobin A1c for diagnosis of diabetes in children. According to [place] Diabetes Association (ADA) guidelines, hemoglobin A1c <7.0% represents optimal control in non- diabetic patients. Different metrics may apply to specific patient populations. Standards of Medical Care in Diabetes(ADA). ?? eAG (MG/DL) 94 mg/dL 10/08/2022 6:38 AM EST [facility] eAG (MMOL/L) 5.2 mmol/L 10/08/2022 6:38 AM [employer] Blood Structure of peripheral vein / Unknown Venipuncture / Unknown 10/07/2022 2:01 PM EST 10/07/2022 2:33 PM EST Alysia VILLA - 10/08/2022 6:38 AM EST [facility] Received Date: us Zoila Sue TONGUE STITCHER LAB BLOOD ORDERABLES Final Result MICHAEL VILLA [address] [facility] 3rd Floor, [place] [address], [place] [phone] [employer] [address] [facility] 3rd Floor, [place] [address], [place] [phone] from Last 3 Months or Most Recently Relevant to Health Maintenance [place] [address] Care Teams Cnc Mill Operator Relationship Specialty Start Date End Date Gabbie Cisneros [address] [place] [address] PCP - General Family Medicine 06/15/22
--- OUTSIDE RECORDS SUMMARY | 2024-11-28 16:33 | XMS_ITS | Encounter Summary ---
Author Organization [employer] Address [address] [facility] 7[address] [place] [address] Care Team Providers Care Load Mixer Name Role Phone Gabbie Cisneros MD Primary Care Provider Reason for Visit * Reason Onset Date Comments ED F/U 07/27/2022 Encounter Details Date Type Department Care Team ([facility] st Contact Info) Description 07/27/2022 Telephone [facility] CHC MED & PEDS [address] [place], [place] [phone] Gabbie Cisneros MD [address] [place] [address] ED F/U Social History Tobacco Use Types [...] Pt agrees. * Telephone Encounter - Cynthia Vigilgos - 07/27/2022 1:38 PM EST Margy, a nurse calling from [facility] to report ED visit on 07/26/22 at [facility]. Sandra states not knowing the reason of the ED visit. Sandra was advised will forward to team nurse for follow up. Margy's contact number [phone]. Please contact pt for follow up at [phone] documented in this encounter Plan of Treatment Upcoming Encounters Date Type Department Care Team ([facility] st Contact Info) Description 01/22/2025 10:15 AM EDT Office Visit [facility] MED & PEDS [address] [place] [address] Gabbie Cisneros MD [address] [place] [address] documented as of this encounter Visit Diagnoses Not on filedocumented in this encounter Care Teams Load Mixer Relationship Specialty Start Date End Date Gabbie Cisneros MD [address] [place] [address] PCP - General Family Medicine 05/02/18 Saloni Kaminski First AssistService Parts Coordinator 05/19/23 Rosemarie Palmer [address] [place] [address] Nurse Practitioner Neurology 09/18/23 Milad Mcfarland First AssistService Parts Coordinator 10/01/24 documented as of this encounter
--- OUTSIDE RECORDS SUMMARY | 2024-11-28 16:33 | XMS_ITS | Continuity of Care Document ---
Author Organization [facility] In [facility] Address [address] [place] [address] Care Team Providers Care Convention Manager Name Role Phone Vinicio Porter MD Unavailable [...] times every week 0.5 MG - Active In[employer] TechnologiesTouch Ultra2 kit test blood sugars twice a [...] Diagnoses Date Provider Providers Copied on Encounter [facility], [address] [place] [address], [id number] , [facility] No Information 0 Charlotte Mooney. [address], [place], [id number], [place]. tel:[phone] [facility], [address] [place] [address], [phone] , [facility] No Information 7 Charlotte Mooney. [address] [facility] [address], [id number], [place]. tel:[phone] OFFICE/OUTPA TIENT VISIT, [facility], [address] [place] [address], [phone] , [facility] lab result (chief complaint)hyp ertension (chief complaint)hyp erlipidemia (chief complaint) Body mass index (BMI) 37.0-37.9, adultEssential (primary) hypertensionHy perlipidemia, unspecifiedBen ign neoplasm of pituitary gland 7 Charlotte Mooney. [address] [facility] [address], [id number], [place]. tel:[phone] [facility], [address] [place] [address], [phone] , [facility] No Information 7 Nurse Nurse. . [facility], [address] [place] [address], [id number] , [facility] No Information 7 Nurse Nurse. . OFFICE/OUTPA TIENT VISIT, [facility], [address] [place] [address], [phone] , [facility] Hearing loss (chief complaint)hyp ertension (chief complaint)hyp erlipidemia (chief complaint)sei zure (chief complaint) Body mass index (BMI) 37.0-37.9, adultDizziness Hearing lossEssential (primary) hypertensionHy perlipidemia, unspecifiedUns pecified convulsions [facility]. [address] [place] [address], [id number], [place]. tel:[phone], [id number] , [place] [facility] Dizziness [facility]. [address], [id number], [place]. tel:[phone] OFFICE/OUTPA TIENT VISIT, [facility], [address] [place] [address], [phone] , [facility] hemorroids (chief complaint)diz ziness (chief complaint)pit uitary tumor (chief complaint) Body mass index (BMI) 40.0-44.9, adultBenign neoplasm of pituitary glandDizziness Other hemorrhoids [facility]. [address], [id number], [place]. tel:[phone] OFFICE/OUTPA TIENT VISIT, [address], [phone] , [place] [facility] lab review (chief complaint) Body mass index (BMI) 37.0-37.9, adultBenign neoplasm of pituitary glandFibromyal giaBack painSleep apneaHearing lossOtalgiaDep ression [facility]. [address], [id number], [place]. tel:[phone], [id number] , [place] [facility] No Information 7 Nurse Nurse. . [facility], [address] [place] [address], [phone] , [place] [facility] No Information 7 Nurse Nurse. . OFFICE/OUTPA TIENT VISIT, EST [facility], [address] [place] [address], [phone] , [place] [facility] physical (chief complaint) Body mass index (BMI) 37.0-37.9, adultEncounter for exam of eyes and vision w/o abnormal findingsEncntr for exam of ears and hearing w oth abnormal findingsEncntr for general adult medical exam w/o abnormal findingsBack painSleep apneaBenign neoplasm of pituitary glandBenign neoplasm of pituitary gland 7 Charlotte Mooney. [address], [place], [place], [id number], [place]. tel:[phone] [facility], [address] [place] [address], [phone] , [place] [facility] No Information 7 Charlotte Mooney. [address], [place], [place], [id number], [place]. tel:[phone] [facility], [address] [place] [address], [phone] , [place] [facility] No Information 7 Charlotte Mooney. [address], [place], [place], [id number], [place]. tel:[phone] [facility], [address] [place] [address], [phone] , [place] [facility] No Information 7 Nurse Nurse. . [facility], [address] [place] [address], [phone] , [place] [facility] No Information 7 Charlotte Mooney. [address], [id number], [place]. tel:[phone] OFFICE/OUTPA TIENT VISIT, [address], [id number] , [facility] pituitary adenoma (chief complaint)fib romyalgia (chief complaint) Benign neoplasm of pituitary glandFibromyal giaUnspecified convulsionsEss ential (primary) hypertensionMa tran depressive disorder, single episode, unspecifiedHyp erlipidemia, unspecifiedPer romelia history of colonic polypsBody mass index (BMI) 37.0-37.9, adultEncounter for oth screening for malignant neoplasm of breastEncounte r for screening for malignant neoplasm of cervixNonscarr ing hair loss, unspecifiedOth er abnormal glucose Charlotterebecca Mooney. [address] [place] [address], [id number], [place]. tel:[phone] OFFICE/OUTPA TIENT VISIT, [facility], [address] [place] [address], [phone] , [place] [facility] chronic condition (chief complaint) Body mass index (BMI) 37.0-37.9, adultDysmenorr heaBenign neoplasm of pituitary glandEssential (primary) hypertensionUn specified convulsions Charlotte Mooney. [address] [place] [address], [id number], [place]. tel:[phone] OFFICE/OUTPA TIENT VISIT, [address], [phone] , [place] [facility] pap result (chief complaint) Encounter for screening for malignant neoplasm of cervixBody mass index (BMI) 37.0-37.9, adult Charlotte Mooney. [address] [place] [address], [id number], [place]. tel:[phone] OFFICE/OUTPA TIENT VISIT, [address], [phone] , [place] [facility] lab result (chief complaint) Body mass index (BMI) 37.0-37.9, adultDysmenorr hea May-1 0-201 7 Charlotte [facility]d. [address] [facility] [facility] [address], [id number], [place]. tel:[phone] [facility], [address] [place] [address], [phone] , [facility] Bradycardia, unspecified May-0 8-201 7 Charlotterebecca Lambd. [address] [facility] [address], [id number], [place]. tel:[phone] [facility], [address] [place] [address], [phone] , [facility] No Information May-0 5-201 7 Nurse Nurse. . [facility], [address] [place] [address], [phone] , [facility] No Information May-0 5-201 7 Nurse Nurse. . [facility], [address] [place] [address], [phone] , [facility] No Information December-0 4-201 7 Charlotterebecca Lambd. 460 [facility] [address], [id number], [place]. tel:[phone] OFFICE/OUTPA TIENT VISIT, [facility], [address] [place] [address], [phone] , [place] [facility] ER followup (chief complaint) Body mass index (BMI) 37.0-37.9, adultVaginitis Encounter for screening for malignant neoplasm of cervixEncounte r for screening for malignant neoplasm of cervixRash December-0 4-201 7 Charlotte [facility]d. [address] [facility] [address], [id number], [place]. tel:[phone] OFFICE/OUTPA TIENT VISIT, [facility], [address] [place] [address], [phone] , [place] [facility] uri (chief complaint) Body mass index (BMI) 37.0-37.9, adultAcute respiratory infection Nov-2 5- 7 Charlotte Mooney. 460 [facility] [address], [id number], [place]. tel:[phone] OFFICE/OUTPA TIENT VISIT, [facility], [address] [place] [address], [phone] , [place] [facility] MRI results (chief complaint) FibromyalgiaBe nign neoplasm of pituitary glandAbnormal glucoseEssenti al (primary) hypertensionMa tran depressive disorder, single episode, unspecifiedPer romelia history of colonic polypsUnspecif ied convulsionsBod y mass index (BMI) 37.0-37.9, adultEncounter for oth screening for malignant neoplasm of breast Nov-1 0- 7 Charlotte Mooney. 460 [facility] [address], [place], [id number], [place]. tel:[phone] OFFICE/OUTPA TIENT VISIT, [facility], [address] [place] [address], [phone] , [place] [facility] pituitary tumor (chief complaint) Benign neoplasm of pituitary glandFibromyal giaDepressionP ain, unspecifiedVit freeman D deficiency Mar-1 0- 7 Charlotte Mooney. [address], [id number], [place]. tel:[phone] [facility], [address] [place] [address], [id number] , [place] [facility] No Information Mar-0 3-201 7 Nurse Nurse. . [facility], [address] [place] [address], [phone] , [place] [facility] No Information Mar-0 2-201 7 Nurse Nurse. . OFFICE/OUTPA TIENT VISIT, [facility], [address] [place] [address], [phone] , [place] [facility] Neck pain (chief complaint) Pain, unspecifiedFib romyalgiaBenig n neoplasm of pituitary glandBradycard iaBody mass index (BMI) 36.0-36.9, adult 7 Charlotte Mooney. 460 [facility] [address], [id number], [place]. tel:[phone] OFFICE/OUTPA TIENT VISIT, [facility], [address] [place] [address], [phone] , [facility] lab result (chief complaint)Nec k pain (chief complaint) Benign neoplasm of pituitary glandEssential (primary) hypertensionUn specified convulsionsHyp erlipidemiaDep ressionMigrain eAbnormal glucoseEncount er for oth screening for malignant neoplasm of breastPain, unspecified 7 Charlotte Mooney. 460 [facility] [address], [id number], [place]. tel:[phone] [facility], [address] [place] [address], [id number] , [place] [facility] No Information 6 Charlotte Mooney. 460 [facility] [address], [id number], [place]. tel:[phone] OFFICE/OUTPA TIENT VISIT, [facility], [address] [place] [address], [phone] , [place] [facility] bacterial vaginits (chief complaint) Body mass index (BMI) 37.0-37.9, adultVaginitis Benign neoplasm of pituitary glandEncntr for surg nurse exam (general) (routine) w/o abn findings 6 Charlotte Mooney. 460 [facility] [address], [id number], [place]. tel:[phone] [facility], [address] [place] [address], [id number] , [facility] No Information 6 No Information OFFICE/OUTPA TIENT VISIT, [facility], [address] [place] [address], [phone] , [facility] Follow Up of coldness and pain in legs (chief complaint)Fol low Up of bradycardia (chief complaint) Radiculopathy, lumbar regionParesthe silvio of skinPain in unspecified kneeBradycardi a 6 No Information OFFICE/OUTPA TIENT VISIT, [facility], [address] [place] [address], [phone] , [facility] lab result (chief complaint) FibromyalgiaUn specified convulsionsEss ential (primary) hypertensionMa tran depressive disorder, single episode, unspecifiedBen ign neoplasm of pituitary glandPersonal history of colonic polypsPain in unspecified kneeBody mass index (BMI) 39.0-39.9, adult Oct- 6- 6 Charlotte Steinbergmad. 460 [facility] [address], [id number], [place]. tel:[phone] [facility], [address] [place] [address], [phone] , [facility] No Information 6 Nurse Nurse. . [facility], [address] [place] [address], [phone] , [facility] No Information - 6 Nurse Nurse. . [facility], [address] [place] [address], [phone] , [facility] No Information - 6 Charlotte Steinbergmad. 460 [facility] [address], [place], [place], [id number], [place]. tel:[phone] OFFICE/OUTPA TIENT VISIT, [facility], [address] [place] [address], [phone] , [facility] hypertension (chief complaint) Abnormal glucoseFibromy algiaEssential (primary) hypertensionUn specified convulsionsMaj or depressive disorder, single episode, unspecifiedBen ign neoplasm of pituitary glandHyperlipi demiaPersonal history of colonic polypsBody mass index (BMI) 39.0-39.9, adultEncounter for screening for malignant neoplasm of cervixEncounte r for oth screening for malignant neoplasm of breastPain in unspecified kneeEncntr for surg nurse exam (general) (routine) w/o abn findings 6 Charlotte Mooney. 460 [facility] [address], [place], [place], [id number], [place]. tel:[phone] [facility], [address] [place] [address], [phone] , [facility] No Information Apr- 6 Nurse Nurse. . [facility], [address] [place] [address], [phone] , [facility] No Information 6 Nurse Nurse. . OFFICE/OUTPA TIENT VISIT, [address], [phone] , [facility] Body mass index (BMI) 39.0-39.9, adultMigraineS eizureFibromya lgiaEssential (primary) hypertensionOb esityOvarian cystDepression Abnormal glucoseEncount er for screening for malignant neoplasm of cervixBradycar man 6 Charlotte Mooney. 460 [facility] [address], [place], [place], [id number], [place]. tel:[phone] Family History Family Member Type Diagnosis Age At Onset Brother Problem (finding) coronary arterioscleros is Problem (finding) Family history of cance r of colon Brother Problem (finding) cancer of colon Brother Problem (finding) aneurysm Problem (finding) Family history of Cance r, skin Mother Problem (finding) osteoporosis Payers Payer name Insurance type Covered libertarian ID Authoriza tion(s) No Information Social History [...] Goal Influenza vaccine. Due on due Goal Pap/HPV testing. Due on due Goal Lipid panel. Due on 022 due Goal Depression scree ruperto. Due on due Goal Colonoscopy. Due on 027 due Goal Zoster vaccine ( ). Due on due Goal Urinalysis due Goal ECG due Goal Lifestyle education regardin g diet [...] 17 due Goal Td vaccine. Due on due Goal Tdap. Due on due Goal Tdap. Due on due Goal Td vaccine. Due on due Goal Lifestyle education regardin g diet completed Goal Tdap. Due on due Goal Td vaccine. Due on due Goal Influenza vaccine. Due on due Goal Lifestyle education regardin g diet completed Goal Tdap. Due on due Goal Influenza vaccine. Due on due Goal Depression scree ruperto. Due on due Goal Td vaccine. Due on due Goal Lifestyle education [...] on due Goal Influenza vaccine. Due on [place] due Goal Tdap. Due on due Goal Td vaccine. Due on due Goal Depression scree ruperto. Due on due Goal Tdap. Due on due Goal Influenza vaccine. Due on Ny due Goal Lifestyle education regardin g diet [...] diet completed Goal Influenza vaccine. Due on Ny due Goal Depression scree ruperto. Due on due Goal Tdap. Due on due Goal Td vaccine. Due on due Goal Depression scree ruperto. Due on due Goal Td vaccine. Due on due Goal Tdap. Due on due Goal Influenza vaccine. Due on [place] due Goal Tdap. Due on due Goal Influenza vaccine. Due on due Goal Depression scree ruperto. Due on due Goal Td vaccine. Due on 17 due Goal Influenza vaccine. Due on due Goal Tdap. Due on due Goal Td vaccine. Due on 17 due Goal Depression scree ruperto. Due on due Goal Depression scree ruperto. [...] Td vaccine. Due on 16 due Goal Td vaccine. Due on 16 due Goal Tdap. Due on due Goal Pap/HPV testing. Due on due Goal Depression scree ruperto. Due on due Goal Depression scree ruperto. Due on due Goal Pap/HPV testing. Due on due Goal Tdap. Due on due Goal Td vaccine. Due on 16 due Referral Ordered: Neurology (related to Dizziness) ordered Referral Referred To: [facility] [address] [place], [phone] Ordered: Referrals: Neurology. [facility]. Evaluate and treat ordered Referral Ordered: Referrals: Neurology. Evaluate and treat ordered Referral Ordered: Nephrology (related to Dizziness) ordered Referral Ordered: Surgery (related to Other hemorrhoids) ordered Referral Referred To: Vlad Rojas MD [address] [facility] [address] [place], [phone] Ordered: Referrals: Nephrology. Vlad Rojas MD. Evaluate and treat ordered Referral Referred To: Abdifatah Faith MD [address] [place] [address], [address] [place], [place], [id number] [phone] Ordered: Referrals: Surgery. Abdifatah Faith MD. Evaluate and treat ordered Referral Ordered: Referrals: Nephrology. Evaluate and treat ordered Referral Ordered: Referrals: Surgery. Evaluate and treat ordered Referral Ordered: Psychiatry (related to Depression) ordered Referral Referred To: [facility] [address] [facility] [address] [place], [phone] Ordered: Referrals: Psychiatry. [facility]. Evaluate and treat ordered Referral Ordered: Referrals: Psychiatry. Evaluate and treat ordered Referral Ordered: Seb Freedman -Otolaryngology (related to Encntr for exam of ears and hearing w oth abnormal findings) ordered Referral Ordered: Physical Medicine and Rehabilitation (related to Back pain) ordered Referral Ordered: Otolaryngology (related to Encntr for exam of ears and hearing w oth abnormal findings) ordered Referral Ordered: Pulmonology (related to Sleep apnea) ordered Referral Referred To: [facility] [address] [place], [place], [phone] Ordered: Referrals: Physical Medicine and Rehabilitation. [facility]. Evaluate and treat ordered Referral Referred To: Manny Bryant [address] [place], [address] [phone] Ordered: Referrals: Pulmonology. Manny Bryant. Evaluate and treat ordered Referral Referred To: [facility] [address] [place], [place], [id number] [phone] Ordered: Referrals: Otolaryngology. [facility]. Evaluate and treat ordered Referral Referred To: Seb Freedman [address] [place], [place], [id number] [phone] Ordered: Referrals: Otolaryngology. Seb Freedman. Evaluate and treat ordered Referral Ordered: Referrals: Pulmonology. Evaluate and treat ordered Referral Ordered: Referrals: Otolaryngology. Evaluate and treat ordered Referral Ordered: Neurology (related to Benign neoplasm of pituitary gland) ordered Referral Ordered: Dermatology (related to Nonscarring hair loss, unspecified) ordered Referral Ordered: Referrals: Dermatology. Evaluate and treat ordered Referral Ordered: Mammo Screen Bilateral 2 View Darinel ordered Referral Ordered: Neurology (related to Unspecified convulsions) ordered Referral Ordered: Gynecology (related to Dysmenorrhea) ordered Referral Referred To: [facility] [address] [place], [phone] Ordered: Referrals: Obstetrics and Gynecology. [facility]. Evaluate and treat ordered Referral Referred To: [facility] [address] [place], [phone] Ordered: Referrals: Neurology. [facility] [address] Evaluate and treat ordered Referral Ordered: Referrals: Gynecology. Evaluate and treat ordered Referral Referred To: Benjie Logan MD [address] [facility], [address] [place], [address] [phone] Ordered: Referrals: Cardiology. Benjie Logan MD. Follow-up and Treat ordered Referral Ordered: Dermatology (related to Rash) ordered Referral Referred To: [facility] [address] [facility] [place], [phone] Ordered: Referrals: Dermatology. [facility]. Evaluate and treat ordered Referral Ordered: Referrals: Dermatology Appointment date/timeframe: Today ordered Referral Ordered: Rheumatology (related to Fibromyalgia) ordered Referral Ordered: Gastroenterology (related to Personal history of colonic polyps) ordered Referral Ordered: Referrals: Gastroenterology. Evaluate and treat ordered Referral Ordered: MAMMOGRAM, SCREENING ordered Referral Ordered: Pain Medicine (related to Fibromyalgia) ordered Referral Referred To: [facility] [address] [place], [phone] Ordered: Referrals: Pain Medicine. [facility]. Evaluate and treat ordered Referral Ordered: MRI NECK SPINE W/O DYE ordered Referral Ordered: Referrals: Pain Medicine. Evaluate and treat ordered Referral Ordered: X-RAY EXAM OF NECK SPINE, CERVICAL 4 OR 5 VIEWS ordered Referral Ordered: Referrals: Physical Medicine and Rehabilitation. Evaluate and treat ordered Referral Referred To: [facility] [address] [place], [address] [phone] Ordered: Referrals: Physical Medicine and Rehabilitation. [facility]. Evaluate and treat ordered Referral Ordered: Neurology (related to Benign neoplasm of pituitary gland) ordered Referral Ordered: Rheumatology (related to Fibromyalgia) ordered Referral Ordered: John Lerma MD (related to Fibromyalgia) ordered Referral Ordered: Gastroenterology (related to Personal history of colonic polyps) ordered Referral Referred To: John Lerma MD [address] [place], [address] [phone] Ordered: Referrals: Rheumatology. John Lerma MD. Evaluate and treat ordered Referral Referred To: [facility] [address] [place], [address] [phone] Ordered: Referrals: Neurology. [facility]. Evaluate and treat ordered Referral Referred To: [facility] [address] [facility] [address] [place], [address] [phone] Ordered: Referrals: Gastroenterology. [facility]. Evaluate and treat ordered Referral Ordered: X-RAY EXAM OF KNEE, 1 OR 2 VIEWS Bilateral ordered Referral Ordered: Referrals: Neurology ordered Referral Ordered: Referrals: Rheumatology. Evaluate and treat ordered Referral Referred To: John Lerma MD [address] [place], [address] [phone] Ordered: Referrals: John Lerma MD. Evaluate and treat ordered Referral Ordered: Referrals: Gastroenterology ordered Referral Ordered: MRI BRAIN W/O DYE ordered Referral Ordered: Cardiology (related to Bradycardia) ordered Referral Referred To: [facility] [address] [place], [address] [phone] Ordered: Referrals: Diagnostic Radiology. [facility]. Diagnostic testing ordered Referral Ordered: US EXAM, PELVIC, COMPLETE ordered Referral Ordered: Referrals: Cardiology. Evaluate and treat ordered Referral Referred To: Benjie Logan MD [address] [facility] [place], [address] [phone] Ordered: Referrals: Cardiology. Benjie Logan MD. Evaluate and treat ordered Nutrition Recommendation Feeding regime c ompleted [...] diet discussed. Related to Essential (primary) hypertension Giving encouragement to exercise Related to Body mass index (BMI) 37.0-37.9, adult Lifestyle education regarding di et Related to Body mass index (BMI) 37.0-37.9, adult Advised low salt tLifestyle modification discussed.Keep log of blood pressure.Exercise and low caloried diet discussed. Related to Essential (primary) hypertension Lifestyle modificati on discussed.Encoraged daily exercise atleast 45 minutes 5 days a weekPortion control and low calorie diet Related to Hyperlipidemia, unspecified please see HPI Related to Dizzi ness Please see HPI Related to Heari ng loss Giving encouragement to exercise Related to Body mass index (BMI) 37.0-37.9, adult Lifestyle education regarding di et Related to Body mass index (BMI) 37.0-37.9, adult she has been referre d to neurology, she didnot go as it was in [place] and she has car problem Related to Benign neoplasm of pituitary gland Giving encouragement to exercise Related to Body mass index (BMI) 40.0-44.9, adult Lifestyle education regarding di et Related to Body mass index (BMI) 40.0-44.9, adult Mild ear pain, no in fection, advised to take ibuprofen. Related to Otalgia printed copy of refe rral ENT given to patient. Related to Hearing loss printed copy of pulm onary referral given to patient. Related to Sleep apnea Pt goes to pain management. Rela kallie to Fibromyalgia Giving encouragement to [...] Related to Personal history of colonic polyps Advised low salt tLifestyle modification discussed.Keep log of blood pressure.Exercise and low caloried diet discussed. Related to Essential (primary) hypertension Referred to neurolog y again, she was not able to see the neurology and the last referral . Related to Unspecified convulsions Stable, continue to follow. Non-homicidal and [...] Related to Benign neoplasm of pituitary gland Giving encouragement to exercise Related to Body mass index (BMI) 37.0-37.9, adult Lifestyle education regarding di et Related to Body mass index (BMI) 37.0-37.9, adult Not enough cells, re peat Pap in two weeks Related to Encounter for screening for malignant neoplasm of cervix Giving encouragement to exercise Related to Body [...] to the same dermatology Related to Rash Giving encouragement to exercise Related to Body mass index (BMI) 37.0-37.9, adult Lifestyle education regarding di et Related to Body mass index (BMI) 37.0-37.9, adult Advised to increase fluid intakeGargle with luke warm waterTake meds as prescribed.Rest Related to Acute respiratory infection Giving encouragement to exercise Related to Body mass index (BMI) 37.0-37.9, adult Lifestyle education regarding di et Related to Body mass index (BMI) 37.0-37.9, adult Please see above. Related to Uns pecified convulsions Stable, continue to follow. Non-homicidal and non-suicidal Related to Major depressive disorder, single episode, unspecified Lifestyle modificati on discussed along with low calorie diet and regular exercise. Related to Abnormal glucose MRI brain discussed with patient, it didnot show pituitary lesion but ICA lesion, she had appoint with neurology last week but she was late for her appt. She has another appt scheduled on december 23 as per patient. Related to Benign neoplasm of pituitary gland Advised low salt tLifestyle modification discussed.Keep log of blood pressure.Exercise and low caloried diet discussed. Related to Essential (primary) hypertension Giving encouragement to exercise Related to Body [...] ability.Pt verbalized understanding. Related to Pain, unspecified Giving encouragement to exercise Related to Body mass index (BMI) 36.0-36.9, adult Dietary needs education Related to Body [...] of skin Patient has appt with PT lucero we ek. Related to Pain in unspecified knee she has appt with GI Related to Personal history of colonic polyps stable, contineu to follow Relat ed to Major depressive disorder, single episode, unspecified she has appt with neurology Rela kallie to Benign neoplasm of pituitary gland x-ray shows OA, refe rrred to physical therapy Related to Pain in unspecified knee controlled. Advised low salt dietLifestyle modification discussed.Keep [...] lifestyle modification discussed Related to Abnormal glucose Advised low salt tLifestyle modification discussed.Keep log of blood pressure.Exercise and low caloried diet discussed. Related to Essential (primary) hypertension pt referred to neurology Related to Unspecified convulsions stable on meds. Related to Major depressive disorder, single episode, unspecified started on atorvasta tin 10mg po daily Related to Hyperlipidemia Weight monitoring Related to Bod y mass index (BMI) 39.0-39.9, adult pap next visit. Related to Encou nter for screening for malignant neoplasm of cervix Lifestyle modificati on discussed along with low calorie diet and regular exercise. Related to Abnormal glucose trazadone 50 Related to Depre ssion US pelvis Related to Ovari an cyst lisioprol 5mg po roddy ly Advised low salt dietLifestyle modification discussed.Keep log of blood pressure.Exercise and low caloried diet discussed. Related to Essential (primary) hypertension Lifestyle modificati on discussed along with low calorie diet and regular exercise. Related to Obesity She was referred to neurology Re lated to Seizure pt was [facility] [place] Related to Migraine she was started on g abapentin 300mg po bid. Related to Fibromyalgia Exercise promotion: stretching R elated to Body mass index (BMI) 39.0-39.9, adult Assessments Type Assessment Date No Information Patient Care Teams Name Effective Dates (start - stop) Status Members No Information
--- OUTSIDE RECORDS SUMMARY | 2024-11-28 16:33 | XMS_ITS | Encounter Summary ---
Author Organization [employer] Address [address] [place] [address] Care Team Providers Care Pre Assembly Wirer Name Role Phone Gabbie Cisneros MD Primary Care Provider [phone] Reason for Visit * Reason Onset Date Comments Nurse Triage 06/24/2024 Encounter Details Date Type Department Care Team ([facility] st Contact Info) Description 06/24/2024 Telephone [facility] [address] [place] [address] Gabbie Cisneros MD [address] [place] [address] Nurse Triage Social History Tobacco Use Types [...] [facility] [address] [place] [address] Gabbie Cisneros MD [address] [place] [address] documented as of this encounter Goals Goal [...] documented as of this encounter Care Teams Pre Assembly Wirer Relationship Specialty Start Date End Date Gabbie Cisneros MD [address] [place] [id number] PCP - General Family Medicine 05/02/18 Saloni Kaminski Concert ManagerMachine Cutter 05/19/23 Rosemarie Palmer [address] [place] [address] Nurse Practitioner Neurology 09/18/23 Milad Mcfarland Concert ManagerMachine Cutter 10/01/24 documented as of this encounter
--- OUTSIDE RECORDS SUMMARY | 2024-11-28 16:33 | XMS_ITS | Encounter Summary ---
Author Organization [employer] Address [address] [place] [address] Care Team Providers Care Loin Puller Name Role Phone Gabbie Cisneros MD Primary Care Provider [phone] Reason for Visit * Reason Comments Med Refill Encounter Details Date Type Department Care Team ([facility] st Contact Info) Description 06/30/2023 Refill [facility] [address] [place] [address] Andrew Lozano FNP Severe recurrent major depression [...] 10:15 AM EDT Office Visit [facility] [address] [place] [address] Gabbie Cisneros MD [address] [place] [address] documented as of this encounter Goals Goal [...] documented as of this encounter Care Teams Loin Puller Relationship Specialty Start Date End Date Gabbie Cisneros MD [address] [place] [id number] PCP - General Family Medicine 05/02/18 Saloni Kaminski Retail PharmacistPassenger Attendant 05/19/23 Rosemarie Palmer [address] [place] [address] Nurse Practitioner Neurology 09/18/23 Milad Mcfarland Retail PharmacistPassenger Attendant 10/01/24 documented as of this encounter
--- OUTSIDE RECORDS SUMMARY | 2024-11-28 16:33 | XMS_ITS | Encounter Summary ---
Author Organization [employer] Address [address] [place] [address] Care Team Providers Care Last Sorter Name Role Phone Gabbie Cisneros MD Primary Care Provider [phone] Reason for Visit * Reason Comments Med Refill Encounter Details Date Type Department Care Team (Late st Contact Info) Description 10/13/2022 Refill [facility] [address] [place], [place] [id number] Andrew Lozano FNP Severe recurrent major depression [...] 01/22/2025 10:15 AM EDT Office Visit [facility] [address] [place] [address] Gabbie Cisneros MD [address] [place] [address] documented as of this encounter Visit Diagnoses Diagnosis 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) Major depressive disorder, recurrent episode, severe, specified as with psychotic behavior documented in this encounter Additional Health Concerns Assessment Noted Time PHQ-9 Depression Total Score: 15 09/29/ 023 9:30 AM EST documented as of this encounter Care Teams Last Sorter Relationship Specialty Start Date End Date Gabbie Cisneros MD [address] [place] [address] PCP - General Family Medicine 05/02/18 Saloni Kaminski Hand Cutter ApprenticeRubber Roller Grinder 05/19/23 Rosemarie Palmer [address] [place] [address] Nurse Practitioner Neurology 09/18/23 Milad Mcfarland Hand Cutter ApprenticeRubber Roller Grinder 10/01/24 documented as of this encounter
--- OUTSIDE RECORDS SUMMARY | 2024-11-28 16:33 | XMS_ITS | Clinical Summary ---
Author Organization [employer] Address [address] [place] [address] Care Team Providers Care Viscose Department Worker Name Role Phone Gabbie Cisneros MD Primary Care Provider [phone] Allergies Active Allergy Reactions Criticality Noted Date [...] organization. beta carotene (vitamin A) 3 MG (22696 UT) capsule Take 1 capsule by mouth at bed time. Active verapamil SR (Calan SR) 120 MG ER tablet Take 1 tablet by mouth at bed time. Active montelukast (Singulair) 10 MG tablet Take 1 tablet by mouth. Active ketotifen (Zaditor) 0.025 % ophthalmic solution Administer 1 drop into affected eye(s) every 12 (twelve) hours. 06/13/20 Active erenumab (Aimovig) 140 MG/ML injection Inject under the skin. Active EPINEPHrine (Epipen) 0.3 MG/0.3ML injection syringe Inject into the shoulder, thigh, or buttocks. 06/13/20 Active cabergoline (Dostinex) 0.5 MG tablet take 2 tablets by oral route 2 times every week Active aspirin 81 MG EC tablet Take 1 tablet by mouth at bed time. Active albuterol (ProAir HFA) 108 (90 Base) MCG/ACT inhalerIndication s:Mild asthma without complication, unspecified whether persistent Inhale 2 puffs every 4 (four) hours if needed for wheezing. 18 g 2 08/23/19 23 Active TRUEplus Glucose On The Go 4 g chewable tablet chew FOUR tablets NEEDED FOR LOW BLOOD SUGAR (<70mg/dL), REPEAT IN 15 MINUTES if still low 08/17/20 22 Active magnesium oxide (Mag-Ox) 400 (240 Mg) MG tablet TAKE ONE TABLET AT BEDTIME 09/14/19 23 Active pyridoxine (Vitamin B-6) 50 MG tablet TAKE 1 TABLET BY MOUTH TWICE DAILY FOR 30 DAYS 08/25/19 23 Active riboflavin (vitamin B2) 100 mg tablet tablet Take 200 mg by mouth 2 times daily. 09/18/19 23 Active Advair HFA 230-21 MCG/ACT inhaler Inhale 2 puffs 2 times daily. . 09/26/19 23 Active meclizine (Antivert) 25 MG tabletIndications :Vertigo TAKE ONE TABLET BY MOUTH DAILY NEEDED 30 tablet 05/10/20 23 Active azelastine (Astelin) 0.1 % nasal spray Administer 2 sprays into each nostril Once daily as needed for allergies. 04/02/20 23 Active cholecalciferol (Vitamin D-3) 1.25 MG (13161 UT) capsule Take 1 capsule by mouth 1 (one) time per week. 04/02/20 23 Active clonazePAM (KlonoPIN) 2 MG disintegrating tablet FOR 30 DAYS TAKE 1 TABLET NEEDED FOR SEIZURE LASTING MORE THAN 2 MINUTES. REPEAT NEEDED AND CALL 911 06/23/20 23 Active diphenhydrAMINE (BENADryl) 25 MG tablet Take 1 tablet (25 mg) by mouth 1 (one) time for 1 dose. 1 tablet 10/17/19 24 Active Estrogens Conjugated (Premarin) 0.625 MG/GM cream Insert 0.5 g into the vagina 3 (three) times a week. 30 g 3 12/13/19 24 Active esomeprazole (NexIUM) [address] capsule TAKE ONE CAPSULE EVERY MORNING ONE HOUR BEFORE BREAKFAST, DO NOT BREAK, CRUSH, DISSOLVE OR CHEW 90 capsule 3 01/16/20 24 Active buPROPion XL (Wellbutrin XL) 150 MG 24 hr tablet Take 1 tablet (150 mg) by mouth Once per day. Do not crush, chew, or split. 90 tablet 3 01/30/20 24 Active atomoxetine (Strattera) 25 MG capsule Take 1 capsule (25 mg) by mouth 2 times daily. 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 90 tablet 3 01/30/20 24 Active FREESTYLE LITE test stripIndications: Type 2 diabetes mellitus without complication, without long-term current use of insulin (CMS/HCC) USE TO TEST BLOOD SUGAR TWICE DAILY 50 strip 11 02/06/20 24 Active cetirizine (ZyrTEC) 10 MG tablet Take 1 tablet (10 mg) by mouth Once per day. 90 tablet 1 04/10/20 24 Active Easy Touch Lancets 33G/Twist miscIndications:P rolactinoma (CMS/HCC) TEST BLOOD SUGAR TWICE DAILY 100 each 3 05/09/20 24 Active indomethacin (Indocin) 50 MG capsuleIndication s:Erythema nodosum TAKE 1 CAPSULE BY MOUTH WITH BREAKFAST AND EVENING MEAL 60 capsule 06/06/20 24 Active cholecalciferol VITAMIN D (Vitamin D-3) 50 MCG (2000 UT) capsule TAKE THREE CAPSULES DAILY AT NOON 270 capsule 2 07/02/20 24 Active ibuprofen 800 MG tablet TAKE 1 TABLET BY MOUTH NEEDED FOR MILD PAIN IN THE MORNING, NOON AND AT BEDTIME 30 tablet 07/23/20 24 Active Calcium + Vitamin D3 600-10 MG-MCG tabletIndications :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) TAKE ONE TABLET TWICE DAILY AT NOON AND IN THE EVENING 60 tablet 11 09/10/19 25 Active Ferrous Sulfate (iron) 325 (65 Fe) MG tabletIndications :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 30 tablet 10/08/19 25 Active atorvastatin (Lipitor) 10 MG tabletIndications :Hypercholesterol emia TAKE ONE TABLET EVERY NIGHT AT BEDTIME 30 tablet 10/18/19 25 Active minoxidil (Loniten) 2.5 MG tabletIndications :Androgenetic alopecia TAKE ONE TABLET EVERY MORNING 30 tablet 10/18/19 25 Active albuterol (2.5 MG/3ML) 0.083% nebulizer solutionIndicatio ns:Unspecified asthma with (acute) exacerbation INHALE ONE AMPULE USING A NEBULIZER EVERY SIX HOURS 90 mL 10/24/19 25 Active acetaminophen (Tylenol 8 Hour) 650 MG ER tablet TAKE ONE TABLET BY MOUTH EVERY 8 HOURS NEEDED 90 tablet 10/29/19 25 Active ketoconazole (NIZOral) 2 % shampoo APPLY TO THE AFFECTED AREA(s) EVERY DAY, LATHER, LEAVE ON FOR 5 MINUTES, THEN RINSE OFF WITH WATER 120 mL 11/09/19 25 Active hydrOXYzine HCl (Atarax) 25 MG tabletIndications :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) TAKE ONE TABLET EVERY NIGHT AT BEDTIME 90 tablet 1 11/20/19 25 Active fluocinolone ([place]-Smoothe) 0.01 % external oilIndications:Be nign neoplasm of pituitary gland (CMS/HCC) APPLY TO THE AFFECTED AREA(S) THREE TIMES DAILY 118.28 mL 11/20/19 25 Active triamcinolone (Kenalog) 0.1 % creamIndications: Eczema, unspecified type APPLY A THIN LAYER TO THE AFFECTED AREA(s) ONCE DAILY 80 g 11/20/19 25 Active hydrOXYzine HCl (Atarax) 25 MG tabletIndications :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) TAKE ONE TABLET BY MOUTH EVERY NIGHT AT BEDTIME 90 tablet 1 05/07/20 24 2024 Discontinued ketoconazole (NIZOral) 2 % shampoo APPLY TO THE AFFECTED AREA(s) EVERY DAY, LATHER, LEAVE ON FOR 5 MINUTES, THEN RINSE OFF WITH WATER 120 mL 4 05/14/20 24 2024 Discontinued fluocinolone ([place]-Smoothe) 0.01 % external oilIndications:Be nign neoplasm of pituitary gland (CMS/HCC) APPLY TO THE AFFECTED AREA(S) THREE TIMES DAILY 118.28 mL 3 07/12/20 24 2024 Discontinued triamcinolone (Kenalog) 0.1 % creamIndications: Eczema, unspecified type APPLY A THIN LAYER TO THE AFFECTED AREA(s) ONCE DAILY 80 g 3 07/12/20 24 2024 Discontinued Active Problems Problem Noted Date Diagnosed Date Attention and concentration deficit 10/02/2023 Assessment & Plan (01/30/2024 11:02 AM EDT): Continue Strattera 25 mg BID. Assessment & Plan (10/30/2023 10:18 AM EDT): Difficulty concentrating, inability to read books or the bible or attend pentecostal is very distressing to her. Reports lifetime [...] read books or the bible or attend pentecostal is very distressing to her. Reports lifetime [...] will be under care of Psychiatrist in [place]. Mood is depressed, and pt requests resumption [...] She will F/U with new providers in [place]. For any issues or concerns, contact [facility]. All her questions were answered and [...] Encouraged to go personally as planned to OP agency as a walk-in for counseling. On [...] Do Follow up for counseling, go to [facility] and/or call for appointment. 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 [address] [place] [address] Gabbie Cisneros MD Pre-visit Planning (SDOH screening completed on 09/26/24) 11/08/[address] [facility] [address] [place] [address] Gabbie Cisneros MD 11/01/2024 Population Health Risk Score [facility] ([facility]) Department [address] [place] [address] [phone] Provider, Population Health Generic 10/24/[address] [facility] [address]ETTE Acharya13 Gabbie Cisneros MD 10/23/[address] [facility] [address] [place] [address] Rosalva Hidalgo MD Unspecified asthma with (acute) exacerbation 10/17/2024 Refill [facility] [address] [place] [address] Rosalva Hidalgo MD Androgenetic alopecia 10/17/[address] [facility] [address] [place] [address] Gabbie Cisneros MD Hypercholesterolemia 10/10/2024 Telephone [facility] [address] [place] [address] Gabbie Cisneros MD No Show 10/09/2024 Orders Only GENERIC EXTERNAL DATA DEPARTMENT Provider, Generic External Data 10/08/2024 11:15 AM EST Office Visit [facility] [address] [place] [address] Rosalva Hidalgo MD Erythema nodosum (Primary Dx); Androgenetic alopecia; Androgenetic alopecia; Varicose veins of left leg with edema 10/08/2024 Travel 10/04/2024 Travel 10/01/[address] [facility] [address] [place] [address] Gabbie Cisneros MD Care Coordination (ICP CP) 09/28/[address] [facility] [address] [place] [address] Gabbie Cisneros MD Chronic obstructive pulmonary disease, unspecified COPD type (CMS/HCC) 09/27/[address] [facility] [address] [place] [address] Gabbie Cisneros MD Referral 09/26/[address] [facility] [address] [place] [address] Gabbie Cisneros MD Pre-visit Planning (SDOH screening negative and tobacco screening negative) 09/18/2024 Travel 09/10/[address] 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 I have rosa sing 09/26/[address] you li [...] Mass Index 31.39 11/28/2024 8:56 AM EDT Plan of Treatment Upcoming Encounters Date Type Department Care Team (Late st Contact Info) Description 01/22/2025 10:15 AM EDT Office Visit [facility] [address] [place] [address] Gabbie Cisneros MD [address] [place] [address] Health Maintenance Due Date Last Done Comments [...] 03/12/2013, Additional history exists Diabetes: Hemoglobin A1C 02/06/2024 023, 02/07/2023, 07/18/2022, Additional history exists COVID-19 Vaccine ( season) 2024 11/12/2021, 11/12/2021, 01/01/2021, Additional history exists Influenza Vaccine (#1) 2024 , 05/11/2022, 07/02/2021, Additional history exists Depression Monitoring 07/31/2024 01/30/2024, 024 Lipid Panel 08/07/2024 08/07/2023, 0411/2021, 05/12/2021, Additional history exists Depression Screening 01/29/2025 01/30/2024, 01/30/20 24 SDOH Screening 09/26/2025 09/26/2024 Tobacco Screening 11/28/2025 11/28/2024 Mammogram 07/05/2026 07/05/2024, 02/15/2022 DTaP/Tdap/Td Vaccines (3 [...] will adhere to medication regimen General No Garett Shelbyis, PharmD Help patient manage asthma General No Ramirezlogevelyn, Jerry, PharmD Note: Reduce use of LUANNE to 2x/week Procedures Procedure Name Priority Date/Time Associated Diagnosis Comments CHLAMYDIA/N. GONORRHOEAE RNA, TMA, UROGENITAL Routine 11/28/2024 9:22 AM EDT Vaginal discharge BACTERIAL VAGINOSIS PANEL Routine 11/28/2024 9:22 AM EDT Vaginal discharge SED RATE BY MODIFIED WESTERGREN Routine 10/09/2024 10:18 AM EST C-REACTIVE PROTEIN Routine 10/09/2024 10 :18 AM EST COMPREHENSIVE METABOLIC PANEL Routine 10/09/2024 10:18 AM EST CBC WITH AUTO DIFFERENTIAL Routine 10/09/2024 10:18 AM EST HM MAMMOGRAPHY Routine 07/05/2024 9:46 AM EST HPV MRNA E6/E7 REFLEX TO HPV 16, 18/45 Routine 12/12/2023 10:19 AM EDT PAP SMEAR Routine 12/12/2023 10:19 AM EDT Cervical cancer screening HEMOGLOBIN A1C Routine 08/07/2023 10:53 AM EST Type 2 diabetes mellitus without complication, without long-term current use of insulin ([facility]) LIPID PANEL, STANDARD Routine 08/07/2023 10:53 AM EST Type 2 diabetes mellitus without complication, without long-term current use of insulin ([facility]) from Last 3 Months or Most Recently Relevant to Health Maintenance Results * Bacterial Vaginosis Panel (11/28/2024 9:22 AM EDT) TRICHOMONAS VAGINALIS DETECTION BY PCR NOT DETECTED Not Detect [facility] BACTERIAL VAGINOSIS DETECTION BY PCR NEGATIVE Negative [facility] Comment:The BV organism targ ets of [...] DETECTION BY PCR NOT DETECTED Not Detect [facility] Nelly glab krusei PCR NOT DETECTED Not Detect [facility] Swab Vaginal structure / Unknown 11/28/2024 9:22 AM EDT 11/28/2024 2:32 PM EDT us Ti Castillo CNM LAB MICROBIOLOGY - GENERA L ORDERABLES Final Result [facility] [address] [place] [address] [phone] * Chlamydia/N. Gonorrhoeae RNA, TMA, Urogenitial (11/28/2024 9:22 AM EDT) CT PCR NOT DETECTED Not Detect. [facility] Comment:A not detected test result does [...] psychologicalconsequences. NG PCR NOT DETECTED Not Detect. [facility] Comment:A not detected test result does [...] AM EDT 11/28/2024 2:34 PM EDT Narrative [facility] - 11/28/2024 4:11 PM EDT Vaginal us Ti LINDO LAB MICROBIOLOGY - GENERA L ORDERABLES Final Result [facility] [address] [place] [address] [phone] * (ABNORMAL) CBC auto differential (10/09/2024 10:18 AM EST) White Blood Count 3.0(L) 4.8 - 10.8 X10*3/uL [facility] Red Blood Count 4.36 4.20 - 5.50 X10*6/uL [facility] Hemoglobin 13.8 12.0 - 16.0 g/dl [facility] Hematocrit 40.0 37.0 - 47.0 % [facility] Mean Corpuscular Volume 91.7 80.0 - 98.0 fL [facility] Mean Corpuscular Hemoglobin 31.7 27.0 - 33.0 pg [facility] Mean Corpuscular HGB Conc 34.5 31.0 - 35.0 g/dl [facility] Red Cell Distribution Width 12.6 11.0 - 16.0 % [facility] Platelet Count 264 160 - 400 X10*3/uL [facility] Mean Platelet Volume 10.0 9.4 - 12.3 fL [facility] Neutrophils Percent Auto 53.0 45 - 73 % [facility] Imm Gran Pct Auto 0.3 0.0 - 0.4 % [facility] Lymphocytes Percent Auto 33.8 20 - 40 % [facility] Monocytes Percent Auto 8.9 2 - 11 % [facility] Eosinophils Percent Auto 3.0 0 - 4 % [facility] Basophils Percent Auto 1.0 0 - 2 % [facility] NRBC Pct Auto 0.0 0.0 - 0.2 /100WBC [facility] Neutrophils Absolute Auto 1.6(L) 2.0 - 8.3 x10*3/uL [facility] Imm Gran Abs Auto 0.01 0.00 - 0.03 X10*3/uL [facility] Lymphocytes Absolute Auto 1.0(L) 1.2 - 4.9 X10*3/uL [facility] Monocytes Absolute Auto 0.3 0.1 - 1.2 X10*3/uL [facility] Eosinophils Absolute Auto 0.1 0.0 - 0.4 X10*3/uL [facility] Basophils Absolute Auto 0.0 0.0 - 0.2 X10*3/uL [facility] NRBC Abs Auto 0.000 0.0 - 0.012 X10*3/uL [facility] 10/09/2024 10:1 8 AM EST 10/09/2024 10:18 AM EST us Generic External Data Provider LAB BLOOD ORDERAB LES Final Result Performing Organization Address [facility] Co de Phone Number [facility] [address] [place] [phone] * Sed Rate by Modified Giuliaren (10/09/2024 10:18 AM EST) Erythrocyte Sedimentation Rate 5 0 - 20 MM/HR [facility] Comment:Patients with polycy themia and many hemoglobin abnormalitiesmay have depressed sed rates whereas patients with anemiamay have elevated sed rates. 10/09/2024 10:1 8 AM EST 10/09/2024 10:18 AM EST us Generic External Data Provider LAB BLOOD ORDERAB LES Final Result Performing Organization Address [facility] Co de Phone Number [facility] [address] [place] [phone] * C-reactive Protein (10/09/2024 10:18 AM EST) C Reactive Protein <0.10 < or = 0.50 mg/dL [facility] 10/09/2024 10:1 8 AM EST 10/09/2024 10:18 AM EST us Generic External Data Provider LAB BLOOD ORDERAB LES Final Result Performing Organization Address City/[facility]/ZIP Co de Phone Number [facility] [address] [place] [phone] * (ABNORMAL) Comprehensive Metabolic Panel (10/09/2024 10:18 AM EST) Sodium 141 135 - 145 mmol/L [facility] Potassium 3.9 3.3 - 5.1 mmol/L [facility] Chloride 106 96 - 108 mmol/L [facility] Carbon Dioxide 28 22 - 29 mmol/L [facility] Anion Gap 11(L) 12 - 20 [facility] Urea Nitrogen (BUN) 13 9 - 16 mg/dL [facility] Creatinine, Serum 0.65 0.5 - 1.4 mg/dL [facility] Estimated Glomerular Filt Rate >60 [facility] Comment:Chronic Kidney Disea se: Estimated GFR < 60 mL/min/1.12c2Biwrzn Kidney Disease: Estimated GFR < 15 mL/min/1.73m2 Glucose 77 60 - 115 mg/dL [facility] Calcium 8.9 8.4 - 10.2 mg/dL [facility] Bilirubin, Total 0.4 0.0 - 1.0 mg/dL [facility] Aspartate Amino Transferase 38(H) 5 - 31 U/L [facility] Alanine Aminotransferase 46(H) 0 - 31 U/L [facility] Total Protein 7.7 6.5 - 8.0 g/dL [facility] Albumin Level 4.3 3.5 - 5.0 g/dL [facility] Alkaline Phosphatase 79 39 - 117 U/L [facility] 10/09/2024 10:1 8 AM EST 10/09/2024 10:18 AM EST us Generic External Data Provider LAB BLOOD ORDERAB LES Final Result [facility] [address] [place] [address] [phone] * Hm Mammography (07/05/2024 9:46 AM EST) Anatomical Region Laterality Modality Other us Historical Provider HEALTH MAINTENANCE Final Result * HPV mRNA E6/E7 w/Reflex to HPV Genotypes 16, 18/45 (12/12/2023 10:19 AM EDT) HPV nRNA E6/E7 Not Detected Not Detected [facility] Comment:Methodology: Transcr iption-Mediated AmplificationThis assay detects E6/E7 viral messenger RNA (mRNA) from 14high-risk HPV types (16,18,31,33,35,39,45,51,52,56,58,59,66,68).Cervical sources are required for HPV testing.If a vaginal source from a patient who has had atotal hysterectomy with removal of cervix wassubmitted, please contact the testing laboratoryfor alternative testing options.For additional information, please refer [email or web address](This link if provided for information/educational purposes only.)THIS TEST WAS PERFORMED AT:[facility] [place] [phone] SHEPPARD MD HPV mRNA E6/E7 TNP [facility] HPV 16 RNA [facility] HPV 18/45 RNA [facility] 12/12/2023 10:1 9 AM EDT 12/13/2023 1:00 PM EDT Ti Castillo [facility] LAB CYTOLOGY ORDERABLES F inal Result [facility] [address] [place] [phone] * Pap Smear (12/12/2023 10:19 AM EDT) Swab Cervix uteri structure / Unknown 12/12/2023 10:19 AM EDT 12/13/2023 1:00 PM EDT Narrative [facility] - 01/01/2024 11:53 AM EDT ----- ------- Name: Radha Fernandez ?Age/Sex: 53/F ? : 1970 Unit#: [id number] ?? Attend Dr: TI CASTILLO CNM ?Re12/15/23 ?Status: DEP REF ? Location: HO.LNP ?Disch: ? ----- ------- SPEC : [id number] ? RECD: 12/13/23-1300 ? STATUS: ??SOUT ? REQ NUM: [id number] ? STEHP: 12/12/23-1019 ? SUBM DR: TI CASTILLO CNM ? ENTERED: ??12/13/23-1450 ?SP TYPE: Pap Smr ?OTHR : ? ORDERED: ??Pap Smear ? Interpretation ?? [...] 66, 68) ?? HPV testing performed by [facility], [place], [place]. ??See reference laboratory ?? portion of the EMR for entire report. ?Clinical Information LMP: Postmenopausal Previous PAP test: 2018, Unknown findings ? Material Received ?? ThinPrep-Cervical ----- ------- Signed (signature on file) REGINA Mcnamara (ASCP) 01/01/24 1153 ? ----- ------- ? END OF REPORT ? Ti LINDO LAB CYTOLOGY ORDERABLES F inal Result Performing Organization Address [facility] Co de Phone Number [facility] [address] [place] [address] [phone] * Hemoglobin A1c (08/07/2023 10:53 AM EST) Hemoglobin A1c 5.1 <6.0 % [facility] Comment:Hemoglobin A1C Refer ence Range Adults: 4.8 - 6.0 % Non diabetic: < 6.0 % Goal: < 7.0 %Additional Action Suggested: > 8.0 %Note: Hemoglobin A1c results are invalid for patients with abnormal amounts of HbF. Blood transfusions may impact the HbA1c concentration in the patient sample. Estimated Average Glucose 100 mg/dL [facility] Comment:eAG = Estimated ave rage glucose which is %A1C expressed asaverage glucose, using the formula of the [id number] Glucose study (ADAG), Diabetes Care, Vol.31,#8,Mar. 2007 Blood Venous blood specimen / Unknown 08/07/2023 10:53 AM EST 08/07/2023 2:05 PM EST us Gabbie Cisneros MD LAB BLOOD ORDERABLES Final Resul t Performing Organization Address [facility] Co de Phone Number [facility] [address] [place] [phone] * Lipid Panel, Standard (08/07/2023 10:53 AM EST) Triglycerides 75 <150 mg/dL [facility] Comment:Desirable Triglyceri de: less than 150 mg/dLBorderline High Triglyceride 150-199 mg/dLHigh Triglyceride: 200-499 mg/dLVery High Triglyceride: greater than or equal to 5OO mg/dL Cholesterol 174 <200 mg/dL [facility] Comment:Desirable Cholestero l: less than 200 mg/dLBorderline High Cholesterol: 200-239 mg/dLHigh Cholesterol: greater than 239 mg/dL LDL Cholesterol Calculated 98 <100 mg/dL [facility] [facility] Comment:Desirable LDL: less than 100 mg/dLNear Optimal/Above Optimal LDL: 110- 129 mg/dLBorderline High LDL: 130-159 mg/dLHigh LDL: 160-189 mg/dLVery High LDL: greater than or equal to 190 mg/dL HDL Cholesterol 61 >40 mg/dL [facility] Comment:Desirable HDL: great er than 40 mg/dL Note: This HDL assay may give artificially low results in patients with liver disease. Blood Venous blood specimen / Unknown 08/07/2023 10:53 AM EST 08/07/2023 2:05 PM EST us Gabbie Cisneros MD LAB BLOOD ORDERABLES Final Resul t [facility] [address] [place] [address] [phone] from Last 3 Months or Most Recently Relevant to Health Maintenance [facility] Care Teams Viscose Department Worker Relationship Specialty Start Date End Date Gabbie Cisneros MD [address] [place] [address] PCP - General Family Medicine 05/02/18 Saloni Kaminski Mathematics Education ProfessorCrepe Laminator Operator 05/19/23 Rosemarie Palmer [address] [place] [address] Nurse Practitioner Neurology 09/18/23 Milad Mcfarland Mathematics Education ProfessorCrepe Laminator Operator 10/01/24
--- OUTSIDE RECORDS SUMMARY | 2024-11-28 16:33 | XMS_ITS | Encounter Summary ---
Author Organization [employer] Address [address] [facility] [address] [place] [address] Care Team Providers Care Shopper Insights Manager Name Role Phone Gabbie Cisneros MD Primary Care Provider [phone] Encounter Details Date Type Department Care Team (Late st Contact Info) Description 07/08/2024 Orders Only [facility] [address] [place] [address] Provider, MD Marina Social History Tobacco Use [...] Description 01/22/2025 10:15 AM EDT Office Visit [facility] [address] [place] [address] Gabbie Cisneros MD [address] [place] [address] documented as of this encounter Goals Goal [...] WO CONTRAST Routine 07/29/2024 7:58 AM EST MAMMOGRAPHY Routine 07/05/2024 9:46 AM EST documented in this encounter Results * CT Sinus w/o Contrast (07/29/2024 7:58 AM EST) Anatomical Region Laterality Modality Computed Tomogra phy 07/29/2024 7:58 AM EST Narrative 09/04/2024 11:29 AM EST ? [facility] ?[address] ?[place] [address] ? CT Scan Report ? Signed ? Patient: Fernandez,Radha ?MR#: [id number] ?? [id number] ? : 1970 ?Acct:[id number] ? Age/Sex: 53 / F ?ADM Date: 12/09/24 ? Loc: HO.CT ? Attending Dr: Betzaida Solis MD ? Ordering Physician: Betzaida Solis MD ?? Date of Service: 07/29/24 ?? Procedure(s): CT sinus wo IV con ?? Accession Number(s): [id number] ? cc: Betzaida Solis MD; Gabbie Cisneros MD ? Report Number: ?? [id number]: Total DLP = ?? 99.00 mGy-cm ?? [...] DD/ 0758 ? TD/TT: 07/29/24 0802 ? Mains And Service Supervisor: MANNY ? Procedure Note Donotuseinterpreter, Image - 09/04/[address] [place] [address] [address] Scan Report Signed Patient: Darron Fernandez#: [id number] : 1970Acct:[id number] Age/Sex: 53 / FADM Date: 07/29/24 Loc: HO.CT Attending Dr: Betzaida Solis MD Ordering Physician: Betzaida Solis MD Date of Service: 07/29/24 Procedure(s): CT sinus wo IV con Accession Number(s): [id number] cc: Betzaida Solis MD; Gabbie Cisneros MD Report Number: [id number]: Total DLP = 99.00 mGy-cm EXAMINATION: CT [...] 09/04/24 1126 DD/ 0758 TD/TT: 07/29/24 0802 Mains And Service Supervisor: MANNY [facility] External Provider IMG CT PROCEDURES Final Result * Hm Mammography (07/05/2024 9:46 AM EST) Anatomical Region Laterality Modality Other Historical Provider HEALTH MAINTENANCE Final Result documented in this encounter Visit Diagnoses Not on filedocumented in this encounter Additional Health Concerns Assessment Noted Time PHQ-9 Depression Total Score: 10 024 9:42 AM EDT documented as of this encounter Care Teams Shopper Insights Manager Relationship Specialty Start Date End Date Gabbie Cisneros MD [address] [place] [address] PCP - General Family Medicine 05/02/18 Saloni Kaminski Underwriting Account RepresentativeCasino Slot Supervisor 05/19/23 Rosemarie Palmer [address] [place] [address] Nurse Practitioner Neurology 09/18/23 Milad Mcfarland Underwriting Account RepresentativeCasino Slot Supervisor 10/01/24 documented as of this encounter
== END 2024-11-28 13:41 | disposition home or self-care (01) ==
LOC: HO.CHCLNP 13:40
PROVIDERS: Visit Provider Advanced Practice Midwife
DX: N89.8 Other specified noninflammatory disorders of vagina (principal)
CPT/HCPCS: 81515; 87491; 87591

== ENCOUNTER 2024-12-03 10:19 | Outpatient (AMB) | payer MEDICAID, SELFPAY ==
[2024-12-03 10:20] VITALS: PULSE 70; O2SAT 100; BMI 31.5
--- NOTE | 2024-12-03 10:20 | MHC.OFFVIS ---
Vital Signs 12/03/24 10:20 Height 5 ft 3 in Weight 178 lb BMI 31.5 Pulse 70 Pulse Source Pulse Oximeter Pulse Oximetry (%) 100 Oxygen Delivery Method Room Air Intake Visit Reasons: Botox Intake Note: Patient presents for botox injection. practice supplied Allergies iodine Allergy (Severe, Verified 12/03/24 10:24) Anaphylaxis shellfish derived Allergy (Severe, Verified 12/03/24 10:24) Hives Seasonal Allergies Allergy (Intermediate, Verified 12/03/24 10:24) Watery Eyes Sneezing banana Allergy (Mild, Verified 12/03/24 10:24) Itchy codeine Allergy (Mild, Verified 12/03/24 10:24) Chest Pain morphine Allergy (Mild, Verified 12/03/24 10:24) Chest Pain tree nut Allergy (Mild, Verified 12/03/24 10:24) Itchy watermelon Allergy (Mild, Verified 12/03/24 10:24) Itchy Medication List - Last Reconciled 12/03/24 by Betzaida Solis MD albuterol sulfate 2.5 mg inhalation Q4-6H PRN albuterol sulfate 90 mcg/actuation (ProAir HFA) 2 puffs inhalation QID amitriptyline 10 - 20 mg (1 - 2 x 10 mg) PO BEDTIME 30 days aripiprazole 20 mg PO BEDTIME aspirin 81 mg PO BEDTIME 30 days atorvastatin (Lipitor) 10 mg PO DAILY [Bilateral carpal tunnel wrist splints Use nightly while sleeping] ibovyddves-nryufvcguc-wfb-cod [id number] mg 1 cap PO Q4H PRN calcium carbonate-vitamin D3 600 mg-10 mcg (400 unit) 1 tab PO BID celecoxib 200 mg PO BID 90 days cetirizine 10 mg PO DAILY PRN clonazepam 2 mg PO DAILY PRN 30 days clonazepam 2 mg orally for seizure lasting > 2 minutes, may repeat x's 1 and call 911; 30 days clonazepam 2 mg orally . PRN; 2 mg orally for seizure lasting > 2 minutes, may repeat x's 1 and call 911; 30 days duloxetine 30 mg PO QAM esomeprazole magnesium 20 mg PO QAM ferrous fumarate (Ferretts) 325 mg PO DAILY finasteride 5 mg PO DAILY fluocinolone 0.01% topical TID fluticasone propion-salmeterol 115-21 mcg/actuation (Advair HFA) 2 puffs inhalation ONCE fremanezumab-vfrm (Ajovy) 675 mg (4.5 mL) subcut ONCE 90 days [glucose tab PO PRN] hydroxyzine HCl 25 mg PO BEDTIME ketoconazole 2% 1 appl topical DAILY magnesium oxide 400 mg PO DAILY 30 days meclizine 25 mg PO DAILY PRN montelukast 10 mg PO BEDTIME multivitamin 1 tab PO DAILY onabotulinumtoxinA (Botox) IM ondansetron 4 mg PO Q8H PRN pantoprazole 40 mg PO pyridoxine (vitamin B6) 50 mg PO BID 30 days riboflavin (vitamin B2) 200 mg (2 x 100 mg) PO BID 30 days sertraline 50 mg PO QAM topiramate 25 - 50 mg (1 - 2 x 25 mg) PO BEDTIME 30 days triamcinolone acetonide 0.5% 1 appl topical BID triamcinolone acetonide (Nasacort) 1 spray intranasal DAILY verapamil ER 120 mg PO DAILY 30 days vitamin A 1 cap PO QAM vitamin B complex (B Complex-Vitamin B12 tablet) 1 tab PO DAILY zolmitriptan 5 mg PO Q2H PRN 30 days HPI Comments Details: 53y/o female comes for treatment of her cervical dystonia and migraines she reports pain in her forehead and sinuses. she has an appointment with ENT ? Side effects including spread of toxin effect, dysphagia, breathing difficulties , bronchitis etc was discussed in detail and the patient agreed to the procedure.An informed consent was obtained ??? Botulinum toxin type [id number] diluted with 2 cc of normal saline each at a concentration of 25 units in 0.5cc saline. Lot number [id number] expiration 11/2026 ??? Muscles injected Bilateral levator 20 units each Zachariah Splenius 25 units each Bilateral trapezius 30 units each Zachariah temporlis 20 units each Zachariah Zygomaticus 5 units each Total use 200 units She is following up with [facility] clinic at [facility] for psychogenic seizures ??? [facility] Medical History Greater trochanteric bursitis of both hips Osteoarthritis involving multiple joints on both sides of body Cataract Pituitary abnormality Sleep disorder GERD (gastroesophageal reflux disease) HTN (hypertension) Diabetes Depression Anemia Surgical History Hx of tonsillectomy H/O tubal ligation H/O section H/O gastric bypass H/O laparoscopic adjustable gastric banding Hx of bilateral breast reduction surgery H/O right knee surgery H/O left knee surgery Family History Father Skin cancer Brother Heart disease Brother Cancer Mother Dementia Social History Household Members Other:: daughter Alcohol intake: never Patient Tobacco Use Status: Former Tobacco user Current occupational status: disabled Physical Exam Vital Signs: Last Vital Signs Pulse 70 12/03/24 10:20 Pulse Ox 100 12/03/24 10:20 Oxygen Delivery Method Room Air 12/03/24 10:20 BMI result Body Mass Index 31.5 Const General: cooperative and no acute distress Orientation/consciousness: patient oriented x3 HEENT Head: Yes normocephalic Neuro General: patient oriented x3, gait normal and CN's II-XI intact bilaterally Cognition (Neuro): normal cognition Motor exam (neuro): 5/5 motor strength present throughout Office Procedures Botulinum toxin Injection 36349 - Dystonia Procedure code (CPT) selection complete Office Meds onabotulinumtoxinA 200 unit solution for injection Performing Provider: Betzaida Solis MD Performing Location: [facility] Administered by: Betzaida Solis MD on 12/03/24 10:49 Dose Route Admin Location Dispensed Lot Number Expiration Date [facility] Field Map Editor 200 unit subcut 200 units [id number] ALLERGAN/BOTOX Assessment & Plan Assessment & Plan (1) Spasmodic torticollis: Code(s): G24.3 - Spasmodic torticollis Category: Medical Plan Patient tolerated the procedure well she will call with any side effect F/u FND clinic Ct sinus Orders: Orders AMB Botulinum toxin Injection Today G24.3 - Spasmodic torticollis Medications: New onabotulinumtoxinA 200 units subcut ONCE 1 ea 0RF torticollis G24.3 - Spasmodic torticollis Coding Level of Care Code Est Pt Level 1 (79919) Diagnoses Spasmodic torticollis G24.3 CPT Codes Botox Injection - Botox 4: 05690 - Dystonia ([id number])
--- OUTSIDE RECORDS SUMMARY | 2024-12-03 12:17 | XMS_ITS | Encounter Summary ---
Author Organization [employer] Address [address] [facility] [address] [place] [address] Care Team Providers Care Oil Field Pipeline Supervisor Name Role Phone Gabbie Cisneros MD Primary Care Provider [phone] Encounter Details Date Type Department Care Team [...] 01/22/2025 10:15 AM EDT Office Visit [facility] [address] [place] [address] Gabbie Cisneros MD [address] [place] [address] documented as of this encounter Goals Goal [...] documented as of this encounter Care Teams Oil Field Pipeline Supervisor Relationship Specialty Start Date End Date Gabbie Cisneros MD [address] [place] [address] PCP - General Family Medicine 05/02/18 Saloni Kaminski Tape Making Machine OperatorNegotiator Sales 05/19/23 Rosemarie Palmer [address] [place] [address] Nurse Practitioner Neurology 09/18/23 Milad Mcfarland Tape Making Machine OperatorNegotiator Sales 10/01/24 documented as of this encounter
--- OUTSIDE RECORDS SUMMARY | 2024-12-03 12:17 | XMS_ITS | Encounter Summary ---
Author Organization [employer] Address [address] [facility] [address] [place] [address] Care Team Providers Care Belt Weaver Name Role Phone Gabbie Cisneros MD Primary Care Provider [phone] Encounter Details Date Type Department Care Team ([facility] st Contact Info) Description 10/16/2023 Telephone [facility] P[facility]S [address] [place], [place] [phone] Gabbie Cisneros MD [address] [place] [address] Social History Tobacco Use Types Packs/Day Years [...] Description 01/22/2025 10:15 AM EDT Office Visit [facility] [address] [place], [place] [phone] Gabbie Cisneros MD [address] [place] [address] documented as of this encounter Goals Goal [...] documented as of this encounter Care Teams Belt Weaver Relationship Specialty Start Date End Date Gabbie Cisneros MD [address] [place] [address] PCP - General Family Medicine 05/02/18 Saloni Kaminski Maintenance WelderSewing Machine Adjuster 05/19/23 Rosemarie Palmer [address] [place] [address] Nurse Practitioner Neurology 09/18/23 Milad Mcfarland Maintenance WelderSewing Machine Adjuster 10/01/24 documented as of this encounter
--- OUTSIDE RECORDS SUMMARY | 2024-12-03 12:17 | XMS_ITS | Encounter Summary ---
Author Organization [employer] Address [address] [facility] [address] [place] [address] Care Team Providers Care Blocking Machine Tender Name Role Phone Gabbie Cisneros MD Primary Care Provider [phone] Reason for Referral * Imaging (Routine) - Authorized Specialty Diagnoses / Procedures Referred By Contac t Referred To Contact Radiology Diagnoses Pelvic pain Procedures US Pelvis Transvaginal Lisa Wayne CNM [address] [place] [address] Phone: tel: fax: [address] Phone: tel: fax: Referral ID Status Reason Start Date Expiration Date V isits Requested Visits Authorized [id number] Authorized 11/28/2024 11/28/2025 1 1 * Imaging (Urgent) - Authorized Specialty Diagnoses / Procedures Referred By Contac t Referred To Contact Radiology Diagnoses Pelvic pain Procedures Us Pelvis complete Lisa Wayne CNM [address] [place] [address] Phone: tel: fax: [address] Phone: tel: fax: Referral ID Status Reason Start Date Expiration Date V isits Requested Visits Authorized [id number] Authorized 11/28/2024 11/28/2025 1 1 Reason for Visit * Reason Comments Gynecologic Exam Encounter Details Date Type Department Care Team ([facility] st Contact Info) Description 11/28/2024 9:00 AM EDT Office Visit [facility] [address] [place] [address] Lisa Wayne CNM [address] [place] [address] Vaginal discharge (Primary Dx); Pelvic pain; Perimenopause; [...] a 53 y.o. female who presents for HANDLE ROUNDER OPERATOR visit Last visit with me 11/2023. [...] kg/m?? Physical Exam Exam conducted with a personnel director present (Lisa Wayne CNM). Constitutional: Appearance: Normal [...] Upcoming Encounters Date Type Department Care Team ([facility] st Contact Info) Description 01/22/2025 10:15 AM EDT Office Visit [facility] [address] [place] [address] Gabbie Cisneros MD [address] [place] [address] documented as of this encounter Goals Goal Patient Goal Type Associated Problems Recent Progress Patient-Stated? Author Patient will adhere to medication regimen General No Jerry Shelby, PharmD Help patient manage asthma General No Jerry Shelby, PharmD Note: Reduce use of LUANNE to 2x/week documented as of this encounter Procedures Procedure Name Priority Date/Time Associated Diagnosis Comments US PELVIS COMPLETE Urgent 12/01/2024 Pelvic pain US PELVIS TRANSVAGINAL Routine 12/01/2024 Pelvic pain BACTERIAL VAGINOSIS PANEL Routine 11/28/2024 9:22 AM EDT Vaginal discharge CHLAMYDIA/N. GONORRHOEAE RNA, TMA, UROGENITAL Routine 11/28/2024 9:22 AM EDT Vaginal discharge documented in this encounter Results * US Pelvis Transvaginal (12/01/2024) Anatomical Region Laterality Modality Pelvis Ultrasound Lisa Wayne [facility] IM US PROCEDURES Final R esult * Us Pelvis complete (12/01/2024) Anatomical Region Laterality Modality Pelvis Ultrasound Lisa Wayne [facility] US PROCEDURES Final R esult * Chlamydia/N. Gonorrhoeae RNA, TMA, Urogenitial (11/28/2024 9:22 AM EDT) CT PCR NOT DETECTED Not Detect. [facility] Comment:A not detected test result [...] psychologicalconsequences. NG PCR NOT DETECTED Not Detect. [facility] Comment:A not detected test result [...] AM EDT 11/28/2024 2:34 PM EDT Narrative [facility] - 11/28/2024 4:11 PM EDT Vaginal Lisa LIND[facility] MICROBIOLOGY - GENERA L ORDERABLES Final Result Performing Organization Address [facility] Co de Phone Number [facility] [address] [place] [phone] * Bacterial Vaginosis Panel (11/28/2024 9:22 AM EDT) TRICHOMONAS VAGINALIS DETECTION BY PCR NOT DETECTED Not Detect [facility] BACTERIAL VAGINOSIS DETECTION BY PCR NEGATIVE Negative [facility] Comment:The BV organism targ ets [...] DETECTION BY PCR NOT DETECTED Not Detect [facility] Nelly glab krusei PCR NOT DETECTED Not Detect [facility] Swab Vaginal structure / Unknown 11/28/2024 9:22 AM EDT 11/28/2024 2:32 PM EDT Lisa LINDO [facility] MICROBIOLOGY - GENERA L ORDERABLES Final Result Performing Organization Address [facility] Co de Phone Number [facility] [address] [place] [phone] documented in this encounter Visit Diagnoses Diagnosis Vaginal discharge- Primary Leukorrhea, not specified as infective Pelvic pain Perimenopause Symptomatic menopausal or female climacteric states Vaginal dryness Postmenopausal atrophic vaginitis documented in this encounter Additional Health Concerns Assessment Noted Time PHQ-9 Depression Total Score: 024 9:42 AM EDT documented as of this encounter Care Teams Blocking Machine Tender Relationship Specialty Start Date End Date Gabbie Cisneros MD [address] [place] [address] PCP - General Family Medicine 05/02/18 Saloni Kaminski Aircraft Body RepairerOccupational Medicine Specialist 05/19/23 Rosemarie Palmer [address] [place] [address] Nurse Practitioner Neurology 09/18/23 Milad Mcfarland Aircraft Body RepairerOccupational Medicine Specialist 10/01/24 documented as of this encounter
--- OUTSIDE RECORDS SUMMARY | 2024-12-03 12:17 | XMS_ITS | Data Portability ---
Author Organization [place] [facility], Allergy Address [address] [address] Care Team Providers Care Shipping & Receiving Lead Name Role Phone RAÚL GOLDSMITH Primary Care Provider Assessment No assessment recorded. Plan of Treatment Reminders Order Date Submit Date Provider Last Modified By Organization Details Last Modified Time Details Appointments None recorded. Lab None recorded. Referral None recorded. Procedures None recorded. Surgeries None recorded. Imaging None recorded. Medication Orders clotrimaz ole-betam ethasone 1 %-0.05 % topical cream 025 025 [facility] [employer] [facility] [employer] #[id number], [address] [place], [place], [id number], 10:09:05 Patient TargetsNo targets recorded. Patient InstructionsNo instructions recorded. Reason for Referral None Reported. Results Created Date Observation Date Name Description Value Unit Range Abnormal Flag Note LastModifiedBy Organization Detail LastModifiedTime 10/15/19 audio gram No observ ation record ed. BARCODE Not Available 2024 10:40:17 10/15/1907/29/2024 CT, maxil lofac ial, w/o contr ast No observ ation record ed. [email or web address] Not Available 09/22 16:43:45 10/15/1907/29/2024 CT, maxil lofac ial, w/o contr ast No observ ation record ed. [email or web address] Not Available 09/22 16:06:00 Result Notes None recorded. Problems Name Problem SNOMED Code Status Onset Date Resolution Date Notes Provider Name and Address Organization Details Recorded Time Abnormal auditory perceptio n [id number] Active 2019 Other abnormal auditory perceptio ns, bilateral ; Note: Date Diagnosed : 0 10:38 AM (H93.293) Not Available [facility] 4 02:13:44 Dysphonia 49945629 Active 2019 Hoarsenes s; Note: Date Diagnosed : 0 9:46 AM (R49.0) Not Available [facility] 4 02:14:45 Dizziness and giddiness 153991375 Active 2019 Dizziness and giddiness ; Note: Date Diagnosed : 0 10:38 AM (R42) Not Available [facility] 4 02:13:41 Bilateral tinnitus 57560815171 02 Active 2024 JUNIOR HUBBARD MA, CCC-A [address], [place], [address] , [place] [facility] 5 09:44:32 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 - [facility] [place] 5 10:05:08 Headache 81677410 Active 2024 NEPTALI PENN MD [address] [facility] [place] [address], [place], [address] , [facility] - [facility] [place] 5 10:06:26 Unsteady when walking 95816622 Active 2024 NEPTALI PENN MD 100 [facility],[address], [place], [address] , [facility] - [facility] [place] 5 10:08:03 Problem Notes None recorded. Procedures Surgical History Date Name Laterality Status Provider Name and Address Organization Details Recorded Time 10/15/2024 Air & Speech Audio with Tymps (53769, 29866 & 32283) completed JUNIOR HUBBARD MA, CCC-A [address], [place], [address], [facility] - [facility] 10/15/2024 09:44:42 Imaging Results Imaging Date Name Status LastModified by Organiz ation Details LastModified Time 10/15/2024 audiogram completed BARCODE Information no t available 10/15/2024 10:40:17 07/29/2024 CT, maxillofacial, w/o contrast completed [email or web address] Information not available 10/15/2024 16:43:45 07/29/2024 CT, maxillofacial, w/o contrast completed Information not available 10/15/2024 16:06:00 Procedure Notes None recorded. Medical Equipment None Reported. Allergies Allergen ID Allergen Name Allergen Category Reaction Reaction Severity Criticality Documentation Date Start Date Code Code System Note Provider Name and Address Organization Details Recorded Time 78165 codeine medicatio n other Not available Not available 01/02/2024 2670 RxNorm React ion: other react ion, Unkno wn; Not Available [facility] 4 00:50:58 80000 morphine medicatio n other Not available Not available 01/02/2024 7052 RxNorm React ion: other react ion, Unkno wn; Not Available [facility] 4 00:51:04 12185 Iodinated contrast media (substanc e) medicatio n other Not available Not available 01/02/2024 61987 2003 SNOMED React ion: other react ion, Unkno wn; Not Available [facility] 4 00:51:09 Medications Name Sig Start Date Stop Date Status Note LastModified by Organization Details LastModified Time medbox status USE DIRECTED 10/15 completed Not Available Not Available Not Available verapamil ER (SR) 120 mg tablet,ex tended release TAKE ONE TABLET EVERY NIGHT AT BEDTIME (FOR MIGRAINE ) active Not Available Not Available No t Available multivita min tablet TAKE ONE TABLET AT NOON active Not Available Not Available No t Available celecoxib 200 mg capsule TAKE 1 CAPSULE BY MOUTH TWICE DAILY active Not Available Not Available No t Available cyclobenz aprine 10 mg tablet TAKE 1 TABLET BY MOUTH THREE TIMES DAILY FOR 14 DAYS active Not Available Not Available No t Available methocarb amita 500 mg tablet active Not Available Not Available No t Available Vitamin B-2 100 mg tablet TAKE TWO TABLETS TWICE DAILY AT NOON AND BEDTIME active Not Available Not Available No t Available terconazo le 0.4 % vaginal cream INSERT 1 APPLICAT ORFUL VAGINALL Y AT BEDTIME FOR 7 DAYS 10/15 completed Not Available Not Available Not Available prednison e 10 mg tablet TAKE 6 TABLETS BY MOUTH DAILY FOR 1 DAY THEN TAKE 4 TABLETS BY MOUTH DAILY FOR 2 DAYS THEN TAKE 2 TABLETS BY MOUTH DAILY FOR 2 DAYS 10/15 completed Not Available Not Available Not Available ketoconaz ole 2 % shampoo APPLY TO THE AFFECTED AREA(s) EVERY DAY, LATHER, LEAVE ON FOR 5 MINUTES, THEN RINSE OFF WITH WATER active Not Available Not Available No t Available haloperid ol 5 mg tablet TAKE ONE TABLET EVERY MORNING and TAKE TWO TABLETS EVERY DAY AT BEDTIME active Not Available Not Available No t Available albuterol sulfate 2.5 mg/3 mL (0.083 %) solution for nebulizat ion INHALE ONE AMPULE USING A NEBULIZE R EVERY SIX HOURS active Not Available Not Available No t Available triamcino lone acetonide 0.5 % topical cream 10/15 completed Medicati on ID: [id number] rand Name: triamcin olone acetonid e Send Method: E-Prescr ibed Sub s Allowed: subs OK Speci al Instruct ion: APPLY A THIN LAYER TO THE AFFECTED AREA(s) TWICE DAILY Me dication GenericN swapnil: triamcin olone acetonid e Not Available Not Available Not Available cetirizin e 10 mg tablet TAKE 1 TABLET BY MOUTH EVERY DAY active Not Available Not Available No t Available atorvasta tin 10 mg tablet TAKE ONE TABLET EVERY NIGHT AT BEDTIME active Not Available Not Available No t Available azithromy skye 250 mg tablet TAKE 2 TABLETS BY MOUTH FOR 1 DAY THEN TAKE 1 TABLET BY MOUTH DAILY FOR 4 DAYS 10/15 completed Not Available Not Available Not Available ibuprofen 800 mg tablet active Not Available Not Available Not Available ketotifen 0.025 % (0.035 %) eye drops 10/15 completed Not Available Not Available Not Available sumatript an 100 mg tablet 10/15 completed Medicati on ID: [id number] rand Name: sumatrip napier succinat e Send Method: E-Prescr ibed Sub s Allowed: subs OK Medic ationGen ericName : sumatrip napier succinat e Not Available Not Available Not Available sucralfat e 100 mg/mL oral suspensio n TAKE 10ml's BY MOUTH FOUR TIMES DAILY, shake WELL active Not Available Not Available No t Available prednison e 20 mg tablet 10/15 completed Not Available Not Available Not Available sertralin e 100 mg tablet TAKE ONE TABLET EVERY MORNING active Not Available Not Available No t Available topiramat e 25 mg tablet TAKE 1 TO 2 TABLETS BY MOUTH AT BEDTIME active Not Available Not Available No t Available peg-elect rolyte solution 420 gram oral solution MIX AND DRINK 240ML DIRECTED EVERY 15 MINUTES 10/15 completed Not Available Not Available Not Available minoxidil 2.5 mg tablet TAKE ONE TABLET EVERY MORNING active Not Available Not Available No t Available aspirin 81 mg tablet,de layed release TAKE 1 TABLET BY MOUTH EVERY NIGHT AT BEDTIME active Not Available Not Available No t Available tramadol 50 mg tablet TAKE 1 TABLET BY MOUTH EVERY 6 HOURS NEEDED FOR PAIN 10/15 completed Not Available Not Available Not Available triamcino lone acetonide 0.1 % topical cream APPLY A THIN LAYER TO THE AFFECTED AREA(s) ONCE DAILY active Not Available Not Available No t Available zolmitrip napier 5 mg tablet active Not Available Not Available Not Available acetamino phen ER 650 mg tablet,ex tended release TAKE ONE TABLET BY MOUTH EVERY 8 HOURS NEEDED active Not Available Not Available No t Available amitripty line 25 mg tablet 10/15 completed Medicati on ID: [id number] rand Name: amitript yline Se nd Method: E-Prescr ibed Sub s Allowed: subs OK Speci al Instruct ion: TAKE ONE TABLET AT BEDTIME Medicati onGeneri cName: amitript yline Not Available Not Available Not Available prednisol one acetate 1 % eye drops,alisha pension SHAKE LIQUID AND INSTILL 1 DROP IN RIGHT EYE FOUR TIMES DAILY AFTER LASER TREATMEN T FOR 4 DAYS THEN STOP active Not Available Not Available No t Available magnesium oxide 400 mg (241.3 mg magnesium ) tablet TAKE ONE TABLET EVERY NIGHT AT BEDTIME active Not Available Not Available No t Available vitamin A 3,000 mcg (10,000 unit) capsule TAKE ONE CAPSULE EVERY MORNING active Not Available Not Available No t Available amitripty line 10 mg tablet TAKE 1-2 TABLETS BY MOUTH DAILY AT BEDTIME active Not Available Not Available No t Available pantopraz ole 40 mg tablet,de layed release TAKE 1 TABLET BY MOUTH DAILY active Not Available Not Available No t Available erythromy skye 5 mg/gram (0.5 %) eye ointment APPLY A SMALL AMOUNT INTO BOTH EYES FOUR TIMES DAILY TO INCISION FOR 1 WEEK THEN STOP 10/15 completed Not Available Not Available Not Available ferrous sulfate 325 mg (65 mg iron) tablet TAKE ONE TABLET AT NOON active Not Available Not Available No t Available Banophen 25 mg tablet TAKE ONE TABLET ONCE ONE HOUR prior TO contrast 10/15 completed Not Available Not Available Not Available esomepraz ole magnesium 40 mg capsule,d elayed release TAKE 1 CAPSULE BY MOUTH TWICE DAILY 10/15 completed Not Available Not Available Not Available neomycin- polymyxin -dexameth 3.5 mg/mL-10, 000 unit/mL-0 .1% eye drops SHAKE LIQUID AND INSTILL 1 DROP IN BOTH EYES FOUR TIMES DAILY FOR 2 WEEKS THEN STOP 10/15 completed Not Available Not Available Not Available triamcino lone acetonide 0.1 % topical ointment APPLY TO THE AFFECTED AREA(S) TWICE DAILY 10/15 completed Not Available Not Available Not Available clotrimaz ole-betam ethasone 1 %-0.05 % topical cream APPLY TO THE SKIN OF THE AFFECTED EXTERNAL EAR CANAL WITH FINGERTI P THREE TIMES DAILY FOR 2 WEEKS active Not Available Not Available No t Available cabergoli ne 0.5 mg tablet TAKE 2 TABLETS BY MOUTH ON ONE DAY OF THE WEEK AND TAKE 3 TABLETS BY MOUTH ON ANOTHER DAY OF THE WEEK 10/15 completed Not Available Not Available Not Available indometha skye 50 mg capsule TAKE 1 CAPSULE BY MOUTH WITH BREAKFAS T AND EVENING MEAL 10/15 completed Not Available Not Available Not Available fluocinol one 0.01 % topical body oil APPLY TO THE AFFECTED AREA(S) THREE TIMES DAILY active Not Available Not Available No t Available pyridoxin e (vitamin B6) 50 mg tablet TAKE 1 TABLET BY MOUTH TWICE DAILY 10/15 completed Not Available Not Available Not Available omeprazol e 20 mg capsule,d elayed release TAKE 1 CAPSULE BY MOUTH TWICE DAILY active Not Available Not Available No t Available monteluka st 10 mg tablet TAKE ONE TABLET EVERY NIGHT AT BEDTIME active Not Available Not Available No t Available hydroxyzi ne HCl 25 mg tablet TAKE ONE TABLET EVERY NIGHT AT BEDTIME active Not Available Not Available No t Available gabapenti n 100 mg capsule 10/15 completed Medicati on ID: [id number] B rand Name: gabapent in Send Method: E-Prescr ibed Sub s Allowed: subs OK Speci al Instruct ion: TAKE ONE CAPSULE THREE TIMES DAILY Me dication GenericN swapnil: gabapent in Not Available Not Available Not Available azelastin e 137 mcg (0.1 %) nasal spray USE 2 SPRAYS IN EACH NOSTRIL DAILY NEEDED FOR ALLERGIE S active Not Available Not Available No t Available haloperid ol 2 mg tablet TAKE ONE TABLET EVERY MORNING and TAKE TWO TABLETS EVERY DAY AT BEDTIME 10/15 completed Not Available Not Available Not Available ondansetr on 4 mg disintegr ating tablet DISSOLVE ONE TABLET ON TONGUE EVERY 8 HOURS NEEDED active Not Available Not Available No t Available finasteri de 5 mg tablet TAKE ONE TABLET DAILY active Not Available Not Available No t Available naproxen 500 mg tablet 10/15 completed Not Available Not Available Not Available Ventolin HFA 90 mcg/actua tion aerosol inhaler active Not Available Not Available Not Available verapamil ER 120 mg 24 hr capsule,e xtended release TAKE 1 CAPSULE BY MOUTH DAILY AT BEDTIME 10/15 completed Not Available Not Available Not Available esomepraz ole magnesium 20 mg capsule,d elayed release TAKE ONE CAPSULE EVERY MORNING ONE HOUR BEFORE BREAKFAS T. DO NOT BREAK, CRUSH, DISSOLVE OR CHEW active Not Available Not Available No t Available atomoxeti ne 25 mg capsule TAKE ONE CAPSULE IN THE MORNING AND EVENING active Not Available Not Available No t Available clonazepa m 2 mg disintegr ating tablet TAKE 1 TABLET NEEDED FOR SEIZURE LASTING MORE THAN 2 MINUTES AND CALL 911 active Not Available Not Available No t Available Premarin 0.625 mg/gram vaginal cream INSERT 0.5 GRAM VAGINALL Y TWICE PER WEEK DIRECTED 10/15 completed Not Available Not Available Not Available bupropion HCl XL 150 mg 24 hr tablet, extended release TAKE ONE TABLET EVERY MORNING active Not Available Not Available No t Available duloxetin e 30 mg capsule,d elayed release 10/15 completed Medicati on ID: [id number] B rand Name: duloxeti ne Send Method: E-Prescr ibed Sub s Allowed: subs OK Speci al Instruct ion: TAKE ONE CAPSULE BY MOUTH TWICE DAILY IN THE MORNING AND AT BEDTIME Medicati onGeneri cName: duloxeti ne Not Available Not Available Not Available Advair HFA 115 mcg-21 mcg/actua tion aerosol inhaler USE 2 INHALATI ONS BY MOUTH TWICE DAILY 10/15 completed Not Available Not Available Not Available Advair HFA 230 mcg-21 mcg/actua tion aerosol inhaler USE 2 INHALATI ONS BY MOUTH TWICE DAILY active Not Available Not Available No t Available calcium 600 mg (as carbonate )-vitamin D3 10 mcg (400 unit) tablet TAKE ONE TABLET TWICE DAILY AT NOON AND IN THE EVENING active Not Available Not Available No t Available FreeStyle Lite Strips TEST BLOOD SUGAR TWICE DAILY active Not Available Not Available No t Available cholecalc iferol (vitamin D3) 50 mcg (2,000 unit) capsule TAKE THREE CAPSULES DAILY AT NOON active Not Available Not Available No t Available Vitamin D3 25 mcg (1,000 unit) chewable tablet 10/15 completed Medicati on ID: [id number] rand Name: Vitamin D3 Send Method: E-Prescr ibed Sub s Allowed: subs OK Speci al Instruct ion: SLITTER SERVICE AND SETTER 2 TS PO QD Medic ationGen ericName : Vitamin D3 Not Available Not Available Not Available [facility] with Large Mask USE DIRECTED TWICE DAILY 10/15 completed Not Available Not Available Not Available Easy Touch Twist Lancets 33 gauge TEST BLOOD SUGAR TWICE DAILY 10/15 completed Not Available Not Available Not Available Aimovig Autoinjec tor 140 mg/mL subcutane ous auto-inje ctor INJECT 140 mg's SUBCUTAN EOUSLY ONCE PER MONTH active Not Available Not Available No t Available Ajovy 225 mg/1.5 mL subcutane ous auto-inje ctor active Not Available Not Available Not Available Wegovy 0.25 mg/0.5 mL subcutane ous pen injector ADMINIST ER 0.25 MG UNDER THE SKIN 1 TIME A WEEK FOR 4 DOSES 10/15 completed Not Available Not Available Not Available Vitals Date Recorded Body height Body weight Provider Name and Address Organization Details Last Updated DateTime 10/15/2024 160.02 cm 06119.3 g Cynthia Benítez [place] - [facility] 10/15/2024 09:51:15 Social History None recorded. Functional Status None recorded. Mental Status None recorded. Family History Nothing Reported. Medical History Condition Response Anemia Y Arthritis Y Anxiety Y Migraines Y Depression Y Asthma Y Gynecological HistoryNo gynecological history recorded. Obstetrics History GPAL:G 0 P 0 0 0 0 Past Encounters Encounter ID Performer Location Encounter Start Date Encounter Closed Date Diagnosis/Indication Diagnosis SNOMED-CT Code Diagnosis ICD10 Code Diagnosis Note [id number] NEPTALI PENN MD [facility] [address] [facility] [place] [address] 10/15/2024 09:03:00 10/15/2024 10:08:13 Bilateral tinnitus 9749621304 102 H93.13 Audiologic al evaluation results:[facility] ear:{{Norm al* Normal through 2 kHz Mild M oderate Mo derately-s evere Emma re Profoun d}} {{hearing* hearing. sloping to a mild slopi ng to a moderate s loping to moderately severe slo ping to severe slo ping to profound f lat high frequency low frequency mid frequency cookie bite fitzgerald curve}} {{with* se nsorineura l hearing loss with condu ctive hearing loss with mixed hearing loss with}} {{excellen t* good fa ir poor no measurable }} word recognitio n.Left ear:{{Norm al* Normal through 2 kHz Mild M oderate Mo derately-s evere Emma re Profoun d}} {{hearing* hearing. sloping to a mild slopi ng to a moderate s loping to moderately severe slo ping to severe slo ping to profound f lat high frequency low frequency mid frequency cookie bite fitzgerald curve}} {{with* se nsorineura l hearing loss with condu ctive hearing loss with mixed hearing loss with}} {{excellen t* good fa ir poor no measurable }} word recognitio n.Tympanom etry:Right Ear:{{Type A* Type As Type Ad Type C Type C, shallow & rounded Ty pe B Type B with large volume Cou ld not maintain a hermetic seal}}Left Ear:{{Type A* Type As Type Ad Type C Type C, shallow & rounded Ty pe B Type B with large volume Cou ld not maintain a hermetic seal}}Diego ometric testing reviewed with patient. She has excellent hearing bilaterall y.Today we discussed the pathophysi ology of tinnitus and the absence of consistent ly successful pharmacolo gic treatments for tinnitus. We discussed masking strategies to decrease awareness of the tinnitus, including using a white noise machine, music, or television . We discussed how exposure to loud noise can worsen tinnitus so I recommende d hearing protection . We also discussed other ways to potentiall y help reduce awareness of tinnitus including avoidance of caffeine, salty meals and NSAIDs. Dermal mycosis [id number] B36.9 The skin of the {{right le ft* bilate ral}} external auditory canal is showing signs of fungal dermatitis . Recommend applicatio n of clotrimazo le/betamet hasone cream to be applied by fingertip to the external auditory meatus three times a day for two weeks. Patient may repeat this as necessary for recurrence of symptoms. Prescripti on sent to patient's pharmacy. Avoidance of Q-tips recommende d to reduce the risk of recurrence . Headache [id number] R51.9 Patient reporting facial headaches between her eyes and over her cheeks. CT scan reviewed showing no signs of sinus disease. She does have a deviated septum but this would not cause pain. I suspect that the facial headaches are simply part of her underlying significan t migraine phenomenon and she should speak with her neurologis t about this further. Recommend use of nasal saline gel for reported nasal dryness. Unsteady when walking 22 625999 R26.89 Patient with balance disturbanc e which is likely multifacto rial in origin. No sign of BPPV on Hallpike testing today. Her extensive medication list brings up the high possibilit y of medication interactio n or dizziness as a side effect of any number of her medication s. In addition her lower back and lower extremity orthopedic issues can contribute to unsteadine ss while ambulatory . I recommend she continue to work with her orthopedic release specialist in this regard. Health Concerns Section Related Observation LastModified by Organization Detai ls LastModified Time None Recorded Concern Status LastModified by Organization Details LastModified Time None Recorded Advance Directives Directive None Recorded Payers Encounter Date Sequence Insurance Name Policy Number Policy Farrell Covered Member ID Farrell Member ID Guarantor Name 10/15/2024 1 [place] Radha Fernandez [id number] Radha Fernandez Notes Date Note Type Note Provider Name and Address Organization Details Recorded Time 10/15/2024 text/html 53-year-old fema le with fibromyalgia, psychogenic nonepileptic seizures meningioma, depression with anxiety, hypertension, migraine with aura and a host of orthopedic issues affecting the lower extremities and lumbar spine, referred for evaluation of balance disturbance. Patient has extensive medication list with multiple medications whose side effect is dizziness. Patient was evaluated by Dr. Abraham sutherland in 2021, at which point she was reporting 10 years of instability and occasional room spinning associated with major body position changes. She continues to feel imbalanced while ambulatory but has not had any recent true spinning vertigo.Patient reports frequent facial pain affecting her forehead and between her eyes. She reports chronic postnasal drip as well as sinus infections . Patient noticing sounds in her ears that she notices it when she is walking. She also notices left ear itchiness. She has occasional left-sided ear tinnitus. Patient did have CT scan of the maxillofacial and sinus region which showed no significant sinus disease. She had mild septal deviation with some septal spur which is of no clinical significance NEPTALI PENN MD [address] [place] [address], [id number], [place] - [facility] 10/15/2024 10:11:20 OBGyn Episode No OBEpisode recorded.
--- OUTSIDE RECORDS SUMMARY | 2024-12-03 12:18 | XMS_ITS | Encounter Summary ---
Author Organization [facility] Address [address] [place] [address] Care Team Providers Care Ship Fastener Name Role Phone Gabbie Cisneros Primary Care Provider Unavailabl e Reason for Visit * Reason Comments E-prescribe Rx Request Encounter Details Date Type Department Care Team Description 08/25/2022 Refill Bariatric Surgery [address] [place] [address] Will Verduzco MD [address] [place] [address] [address] [place] [address] E-prescribe Rx Request Social History Tobacco Use Types Packs/Day Years Used Date Smoking Tobacco: Former Cigarettes 0.3 8 0 08/1981 - 08/21/2014 Smokeless Tobacco: Never Alcohol Use Standard Drinks/Week Comments No 0 (1 standard drink = 0.6 oz pur e alcohol) Sex Assigned at Date Recorded Not on file Job Start Date Occupation Industry Not on file Not on file Not on file documented as of this encounter Plan of Treatment Not on file documented as of this encounter Visit Diagnoses Diagnosis Intestinal malabsorption following gastrectomy documented in this encounter Care Teams Ship Fastener Relationship Specialty Start Date End Date Gabbie Cisneros PCP - General Family Practice 12/27/18 documented as of this encounter
--- OUTSIDE RECORDS SUMMARY | 2024-12-03 12:18 | XMS_ITS | Encounter Summary ---
Author Organization [employer] [facility] Address [address] [place] [address] Care Team Providers Care Sap Bpc Architect Name Role Phone Gabbie Cisneros Primary Care Provider Unavailabl e Reason for Visit * Reason Comments E-prescribe Rx Request Encounter Details Date Type Department Care Team Description 06/26/2023 Refill Bariatric Surgery [address] [place] [address] Will Verduzco MD [address] [place] [address] [address] [place] [address] E-prescribe Rx Request Social History Tobacco Use [...] as of this encounter Visit Diagnoses Diagnosis Class 1 obesity due to excess calories without serious comorbidity with body mass index (BMI) of 31.0 to 31.9 in adult documented in this encounter Care Teams Sap Bpc Architect Relationship Specialty Start Date End Date Gabbie Cisneros PCP - General Family Practice 12/27/18 documented as of this encounter
--- OUTSIDE RECORDS SUMMARY | 2024-12-03 12:18 | XMS_ITS | Encounter Summary ---
Author Organization [facility] Address [address] [place] [address] Care Team Providers Care Patient Placement Coordinator Name Role Phone Gabbie Cisneros Primary Care Provider Unavailabl e Encounter Details Date Type Department Care Team Description 07/01/2019 [facility] Medical Records [address] [place] [address] Abstract, Provider Social History Tobacco Use Types Packs/Day Years [...] on filedocumented in this encounter Care Teams Patient Placement Coordinator Relationship Specialty Start Date End Date Gabbie Cisneros PCP - General Family Practice 12/27/18 documented as of this encounter
--- OUTSIDE RECORDS SUMMARY | 2024-12-03 12:18 | XMS_ITS | Clinical Summary ---
Author Organization [facility] Address [address] [place] [address] Phone Care Team Providers Care Chip Bin Conveyor Tender Name Role Phone Gabbie Cisneros MD Primary Care Provider [phone] Allergies Active Allergy Reactions Criticality Noted Date [...] s of breath High 10/26/2017 Shellfish Allergy [place] 03/24/2024 Watermelon Shortness of breath High 07/30/2022 [...] up to 90 days. 10/27/19 18 Active yymdl-Z-sfkoraioe dase (BEANO ORAL) PFQKR-Z-CWAJXFTI IDASE (BEANO) TAB : Take 1 tablet [...] DAILY, shake WELL 1200 mL 3 09/11/19 Active albuterol HFA (Ventolin HFA) 90 mcg/actuation inhaler Inhale 2 puffs by mouth every 6 (six) hours if needed for wheezing. 1 each 1 10/31/19 25 025 Active Active Problems Problem Noted Date Diagnosed Date Anemia 06/07/2024 Controlled diabetes mellitus type II without complication ([facility] V24, [employer] [facility] [employer] V28) 06/07/2024 Depression with anxiety 06/07/2024 Fibromyalgia 06/07/2024 Hypertension 06/07/2024 Class 1 obesity due to exces s calories with serious comorbidity and body mass index (BMI) of 33.0 to 33.9 in adult 06/07/2024 Severely overweight 12/03/2019 Intestinal malabsorption following gastrectomy 0 09/03/2019 Migraine with aura 03/12/2019 Spondylosis of lumbar region without myelopathy or radiculopathy 01/24/2018 Pituitary microadenoma ([employer] [facility] [employer] V24, [employer] [employer] V28 ) 10/26/2017 Encounters Date Type Department Care Team Description 12/01/2024 11:30 AM EDT - 12/01/2024 11:59 PM EDT Hospital Encounter [facility] Ultrasound [address] [place] [address] Pelvic pain Discharge Disposition: Home or Self Care 10/29/2024 Telephone Pulmonolgy - [place] [address] [facility] [address] [place] [address] Zari Diaz MD Med Refill from Last 3 Months Immunizations Name Administration Dates Next Due [employer] (ages 12 & older) DEISI S-CoV-2 COVID-19, mRNA, LNP-S, adelina-sucrose, preservative free 11/12/2021 Pfizer SARS-CoV-2 COVID-19, mRNA, LNP-S, preservative free 01/01/2021,12/11/2020 Pneumococcal polysaccharide 23 valent (Pneumovax 23) 2yo and older 02/05/2018 Medical History Medical History Date Comments Asthma DX:Asthma Seizure ([employer] [facility] [employer] V24, [employer] [facility] [employer] V28) DX:Seizure ([facility]) Hypoglycemia DX:Hypoglycemia Social History Tobacco Use [...] AM EDT Office Visit Bariatric Surgery - [place] [address] [facility] [address] [place] [phone] Will Verduzco MD [address] [facility] [address] [place] [id number] Health Maintenance Due Date Last Done Comments [...] season) 2024 11/12/2021, 01/01/2021, 12/11/2020 Influenza Vaccine (Season Ended) 2025 08/04/2023, 05/11/2022, 07/02/2021, Additional history exists Depression Screening 09/16/2025 09/16/2024 Diabetes: Annual GFR (Glomerular Filtration Rate) 10/09/2025 10/09/2024, 06/14/2024, 06/14/2024, Additional history exists Hypertension/CHF/CAD Annual BMP Blood Test 10/09/2025 10/09/2024, 06/14/2024, 06/14/2024, Additional history exists DTaP,Tdap,and Td Vaccines (3 [...] Priority Date/Time Associated Diagnosis Comments US PELVIS NON OB COMPLETE W TRANSVAGINAL Routine 12/01/2024 12:25 PM EDT Pelvic pain HEMOGLOBIN A1C Routine 09/26/2023 ANNUAL BMP BLOOD TEST Routine 08/25/2023 COLONOSCOPY Routine 05/13/2020 HPV Routine 04/09/2018 URINE ALBUMIN CREATININE RATIO Routine 12/06/2017 LIPID PANEL Routine 12/06/2017 from Last 3 Months or Most Recently Relevant to Health Maintenance Results * US Pelvis Non OB Complete w Transvaginal (12/01/2024 12:25 PM EDT) Anatomical Region Laterality Modality Body, Pelvis Ultrasound 12/02/2024 3:21 PM EDT Impressions 12/02/2024 3:27 PM EDT 1. ??No acute findings. 2. ??Bilateral ovarian cysts. ??These are probably functional in this patient of perimenopausal age. ?? -------- FINAL REPORT -------- Dictated By: Sawyer Cox Dictated Date: 12/02/2024 15:21 ET Assigned Physician: Sawyer Cox Reviewed and Electronically Signed By: Sawyer Cox Signed Date: 12/02/2024 15:27 ET Workstation ID: [id number] Transcribed By: Self Edit Transcribed Date: 12/02/2024 15:21 ET Narrative 12/02/2024 3:27 PM EDT Procedure: Ultrasound of the pelvis. HISTORY: Pelvic Pain. TECHNIQUE: Transabdominal and endovaginal grayscale, color Doppler, and spectral Doppler ultrasound evaluation of the pelvis. COMPARISON: CT pelvis 12/17/2021. FINDINGS: Anteverted uterus measuring 9.1 x 4.5 x 5.9 cm. ??There is trace fluid in the endometrial cavity. ??The endometrial stripe measures 5 mm, upper normal for a postmenopausal patient. ?? section scar. ??Myometrium otherwise appears normal. ??A few small cervical nabothian cysts are noted. The right ovary measures 3 x 2 x 2 cm and the left ovary measures 2.5 x 1.5 x 1.6 cm. ??Normal Doppler flow in both ovaries. There are small cysts in both ovaries. ??The largest on the right measures 2.2 cm and the largest on the left measures 1.2 cm. ??Both of these larger cysts demonstrate thin mural calcifications. Procedure Note Sawyer Cox MD - 12/02/2024 Procedure: Ultrasound of the pelvis. HISTORY: Pelvic Pain. TECHNIQUE: Transabdominal and endovaginal grayscale, color Doppler, andspectral Doppler ultrasound evaluation of the pelvis. COMPARISON: CT pelvis 12/17/2021. FINDINGS: Anteverted uterus measuring 9.1 x 4.5 x 5.9 cm. There is trace fluid inthe endometrial cavity. The endometrial stripe measures 5 mm, uppernormal for a postmenopausal patient. section scar. Myometriumotherwise appears normal. A few small cervical nabothian cysts arenoted. The right ovary measures 3 x 2 x 2 cm and the left ovary measures 2.5 x1.5 x 1.6 cm. Normal Doppler flow in both ovaries. There are small cysts in both ovaries. The largest on the right measures2.2 cm and the largest on the left measures 1.2 cm. Both of these largercysts demonstrate thin mural calcifications. IMPRESSION: 1. No acute findings. 2. Bilateral ovarian cysts. These are probably functional in thispatient of perimenopausal age. -------- FINAL REPORT -------- Dictated By: Sawyer Cox Dictated Date: 12/02/2024 15:21 ET Assigned Physician: Sawyer Cox Reviewed and Electronically Signed By: Sawyer Cox Signed Date: 12/02/2024 15:27 ET Workstation ID: [id number] Transcribed By: Self Edit Transcribed Date: 12/02/2024 15:21 ET us Lisa Wayne CNM IMG US PROCEDURES Final R esult * Hemoglobin A1c (09/26/2023) [facility] Hemoglobin A1C 5.1 <=6.5 % Blood Venous blood specimen / Unknown Result [facility] Historical Provider LAB BLOOD ORDERABLES Awa l Result * Annual BMP Blood Test (08/25/2023) [facility] Annual BMP Blood Test Abstracted Result [facility] Historical Provider HEALTH MAINTENANCE Final Result * Colonoscopy (05/13/2020) [facility] Colonoscopy Abstracted, No interpretation Anatomical Region Laterality Modality Other Result [facility] Provider HEALTH MAINTENANCE Final Result * Cervical Cancer Screening: HPV (04/09/2018) [facility] Cervical Cancer Screening: HPV Abstracted ,Negative Result [facility] Provider HEALTH MAINTENANCE Final Result * Urine Albumin Creatinine Ratio (12/06/2017) [facility] Urine Albumin Creatinine Ratio Abstracted Result [facility] Provider HEALTH MAINTENANCE Final Result * Lipid panel (12/06/2017) [facility] LDL/HDL Ratio 3 0 - 4 Triglycerides 140 0 - 150 mg/dL Cholesterol 190 0 - 200 mg/dL HDL 75 >=40 mg/dL LDL Cholesterol 87 0 - 100 mg/dL Blood Venous blood specimen / Unknown Result [facility] Provider LAB BLOOD ORDERABLES Awa l Result from Last 3 Months or Most Recently Relevant to Health Maintenance Insurance MEDICA[place] Care Teams Chip Bin Conveyor Tender Relationship Specialty Start Date End Date Gabbie Cisneros MD [address] [place] [address] PCP - General 11/17/18
--- OUTSIDE RECORDS SUMMARY | 2024-12-03 12:18 | XMS_ITS | Clinical Summary ---
Author Organization [facility] Address [address] [place] [address] Care Team Providers Care Lead Web Application Developer Name Role Phone Gabbie Cisneros MD Primary Care Provider [phone] Allergies Active Allergy Reactions Criticality Noted Date Comments Banana 07/30/2022 Codeine 11/17/2018 Iodinated Contrast Media 07/26/2022 Can take with premeds (benadryl and steroid) Morphine 07/26/2022 Nuts 07/30/2022 Shellfish 07/30/2022 [place] 03/24/2024 Watermelon 07/30/2022 Medications Medication Sig Dispensed [...] age to complete this topic Care Teams Lead Web Application Developer Relationship Specialty Start Date End Date Gabbie Cisneros MD [address] [place] [address] PCP - General Adult Medicine 11/17/18
--- OUTSIDE RECORDS SUMMARY | 2024-12-03 12:18 | XMS_ITS | Encounter Summary ---
Author Organization [facility] Address [address] [place] [address] Care Team Providers Care Mgmt Consultant Name Role Phone Gabbie Cisneros Primary Care Provider Unavailabl e Reason for Visit * Reason Comments E-prescribe Rx Request Encounter Details Date Type Department Care Team Description [facility] [address] [place] [phone] Will Verduzco MD [address] [place] [address] [address] [place] [address] E-prescribe Rx Request Social History Tobacco Use [...] as of this encounter Visit Diagnoses Diagnosis Acute marginal ulcer Acute gastrojejunal ulcer without mention of hemorrhage, perforation, or obstruction documented in this encounter Care Teams Mgmt Consultant Relationship Specialty Start Date End Date Gabbie Cisneros PCP - General Family Practice 12/27/18 documented as of this encounter
--- OUTSIDE RECORDS SUMMARY | 2024-12-03 12:18 | XMS_ITS | Encounter Summary ---
Author Organization [facility] Address [address] [place] [address] Care Team Providers Care Supervisor Cellars Name Role Phone Gabbie Cisneros Primary Care Provider Unavailabl e Encounter Details Date Type Department Care Team Description 06/28/2019 Hospital Medical Records [address] [place] [address] Nathanael Morin MD [address] [place] [address] [place] [id number] Social History Tobacco Use Types Packs/Day Years [...] on filedocumented in this encounter Care Teams Supervisor Cellars Relationship Specialty Start Date End Date Gabbie Cisneros PCP - General Family Practice 12/27/18 documented as of this encounter
--- OUTSIDE RECORDS SUMMARY | 2024-12-03 12:18 | XMS_ITS | Encounter Summary ---
Author Organization [facility] Address [address] [place] [address] Care Team Providers Care Diet Aid Name Role Phone Gabbie Cisneros Primary Care Provider Unavailabl e Encounter Details Date Type Department Care Team Description 07/01/2019 [facility] Medical [facility] [address] [place] [address] Abstract, Provider Social History Tobacco Use Types [...] on filedocumented in this encounter Care Teams Diet Aid Relationship Specialty Start Date End Date Gabbie Cisneros PCP - General Family Practice 12/27/18 documented as of this encounter
--- OUTSIDE RECORDS SUMMARY | 2024-12-03 12:18 | XMS_ITS | Encounter Summary ---
Author Organization [employer] Address [address] [place] [address] Care Team Providers Care Automotive Parts Specialist Name Role Phone Gabbie Cisneros MD Primary Care Provider [phone] Reason for Visit * Reason Onset Date Comments Referral 09/27/2024 Encounter Details Date Type Department Care Team ([facility] st Contact Info) Description 09/27/2024 Telephone [facility] MEDICINE [address] [place] [address] Gabbie Cisneros MD [address] [place] [address] Referral Social History Tobacco Use Types Packs/Day [...] PM EST Pt is already established with [facility] Rheumatology. Pt needs to call to schedule appt. * Telephone Encounter - Denny Hernandez - 09/27/2024 2:37 PM EST Tc from [facility] Stating that pt is requesting a referral to Rheumatology. Contact [facility] at [phone] documented in this encounter Plan of Treatment Upcoming Encounters Date Type Department Care Team (Late st Contact Info) Description 01/22/2025 10:15 AM EDT Office Visit [facility] MED & PEDS [address] [place] [address] Gabbie Cisneros MD [address] [place] [address] documented as of this encounter Goals Goal [...] documented as of this encounter Care Teams Automotive Parts Specialist Relationship Specialty Start Date End Date Gabbie Cisneros MD [address] [place] [address] PCP - General Family Medicine 05/02/18 Saloni Kaminski Irrigation TechnicianHumane Officer 05/19/23 Rosemarie Palmer [address] [place] [address] Nurse Practitioner Neurology 09/18/23 Milad Mcfarland Irrigation TechnicianHumane Officer 10/01/24 documented as of this encounter
--- OUTSIDE RECORDS SUMMARY | 2024-12-03 12:18 | XMS_ITS | Encounter Summary ---
Author Organization [employer] [facility] Address [address] [place] [address] Care Team Providers Care Commutator Assembler Name Role Phone Gabbie Cisneros Primary Care Provider Unavailabl e Reason for Visit * Reason Comments E-prescribe Rx Request Encounter Details Date Type Department Care Team Description 03/28/2023 Refill Bariatric Surgery [address] [place] [address] Will Verduzco MD [address] [place] [address] [address] [place] [address] E-prescribe Rx Request Social History Tobacco Use Types Packs/Day Years Used Date Smoking Tobacco: Former Cigarettes 0.3 8 0 08/1981 - 08/21/2014 Smokeless Tobacco: Never Alcohol Use Standard Drinks/Week Comments No 0 (1 standard drink = 0.6 oz pur e alcohol) Sex Assigned at Date Recorded Not on file Job Start Date Occupation Industry Not on file Not on file Not on file COVID-19 Exposure Response Date Recorded In the last 10 days, have yo u been in contact with someone who was confirmed or suspected to have Coronavirus/COVID-19? No / Unsure 03/28/2023 10:11 AM EDT documented as of this encounter Plan of Treatment Not on file documented as of this encounter Visit Diagnoses Diagnosis Class 1 obesity due to excess calories without serious comorbidity with body mass index (BMI) of 31.0 to 31.9 in adult documented in this encounter Care Teams Commutator Assembler Relationship Specialty Start Date End Date Gabbie Cisneros PCP - General Family Practice 12/27/18 documented as of this encounter
--- OUTSIDE RECORDS SUMMARY | 2024-12-03 12:18 | XMS_ITS | Encounter Summary ---
Author Organization [facility] Address [address] [place] [address] Care Team Providers Care Correction Lieutenant Name Role Phone Gabbie Cisneros Primary Care Provider Unavailabl e Encounter Details Date Type Department Care Team Description 07/20/2019 [facility] Medical Records [address] [place] [address] Abstract, Provider Social History Tobacco Use Types [...] on filedocumented in this encounter Care Teams Correction Lieutenant Relationship Specialty Start Date End Date Gabbie Cisneros PCP - General Family Practice 12/27/18 documented as of this encounter
--- OUTSIDE RECORDS SUMMARY | 2024-12-03 12:18 | XMS_ITS | Encounter Summary ---
Author Organization [facility] Address [address] [place] [address] Care Team Providers Care Edge Banding Off Bearer Name Role Phone Gabbie Cisneros Primary Care Provider Unavailabl e Reason for Visit * Reason Onset Date Comments APPOINTMENT 09/22/2023 Encounter Details Date Type Department Care Team Description 09/22/2023 Telephone Pulmonology - [place] [address] [phone] Zari Diaz MD [address] [phone] APPOINTMENT Social History Tobacco Use Types Packs/Day Years [...] encounter Miscellaneous Notes * Telephone Encounter - Sondra Escobar - 09/22/2023 12:50 PM EST Records received from [facility] for patient to be scheduled for consult. for patient to call and book. Placed records in called accordian documented in this encounter Plan of Treatment Not on file documented as of this encounter Visit Diagnoses Not on filedocumented in this encounter Care Teams Edge Banding Off Bearer Relationship Specialty Start Date End Date Gabbie Cisneros PCP - General Family Practice 12/27/18 documented as of this encounter
--- OUTSIDE RECORDS SUMMARY | 2024-12-03 12:18 | XMS_ITS | Encounter Summary ---
Author Organization [facility] [employer] [facility] Address [address] [place] [address] Care Team Providers Care Marriage Therapist Name Role Phone Gabbie Cisneros Primary Care Provider Unavailabl e Reason for Visit * Reason Comments E-prescribe Rx Request Encounter Details Date Type Department Care Team Description 05/08/2023 Refill Bariatric Surgery [address] [place] [address] Will Verduzco MD [address] [place] [address] [address] [place] [address] E-prescribe Rx Request Social History Tobacco Use [...] adult documented in this encounter Care Teams Marriage Therapist Relationship Specialty Start Date End Date Gabbie Cisneros PCP - General Family Practice 12/27/18 documented as of this encounter
--- OUTSIDE RECORDS SUMMARY | 2024-12-03 12:18 | XMS_ITS | Encounter Summary ---
Author Organization [facility] Address [address] [place] [address] Care Team Providers Care Geographic Information System Surveyor Name Role Phone Gabbie Cisneros Primary Care Provider Unavailabl e Reason for Visit * Reason Comments E-prescribe Rx Request Encounter Details Date Type Department Care Team Description 01/26/2023 Refill Bariatric Surgery [address] [place] [address] Will Verduzco MD [address] [place] [address] [address] [place] [address] E-prescribe Rx Request Social History Tobacco Use [...] suspected to have Coronavirus/COVID-19? No / Unsure 01/26/2023 11:27 AM EDT documented as of this encounter Plan of Treatment Not on file documented as of this encounter Visit Diagnoses Diagnosis Vitamin D deficiency Unspecified vitamin D deficiency documented in this encounter Care Teams Geographic Information System Surveyor Relationship Specialty Start Date End Date Gabbie Cisneros PCP - General Family Practice 12/27/18 documented as of this encounter
--- OUTSIDE RECORDS SUMMARY | 2024-12-03 12:19 | XMS_ITS | Data Portability ---
Author Organization [facility], [facility] Address [address] [place] [address] Care Team Providers Care Armor Reconnaissance Specialist Name Role Phone [facility] Primary Care Provider [phone] Assessment No assessment recorded. Plan of Treatment [...] available PT FOLLOW-U P 2024 08:30A M Sulemna Clemente, OTR OWNER OPERATOR Not available Not available Not available PT FOLLOW-U P 2024 12:30P M Meron Arvizu DPT Not available Not available Not available PT FOLLOW-U P 2024 11:00A Kalen Arvizu DPT Not available Not available Not available PT FOLLOW-U P 2024 12:00P M Meron Arvizu, DPT Not available Not available Not available PT FOLLOW-U P 2024 10:00A Kalen Clemente, OTR OWNER OPERATOR Not available Not available Not available PT FOLLOW-U P 2024 10:30A M Shadina Bryn, OTR OWNER OPERATOR Not available Not available Not available PT FOLLOW-U P 2024 09:30A M Suleman Bryn, OTR OWNER OPERATOR Not available Not available Not available RECHECK [...] Hip Flexor Self Massage 2024 025 jefferson [facility], [address], [place], [address], 11/21/2024 10:01:50 Procedures None recorded . Surgeries None recorded . Imaging XR, hip + pelvis, unilater al, 2 or 3 view - room 5, r hip 2v 2024 025 colton [facility], [address], [address], [place], [address], 11/21/2024 10:01:49 XR, lumbar spine, 2 view - rm 101 lumbar 2 v 2024 025 [facility], [address], [address], [place], [address], 09/05/2024 10:00:50 MRI, lumbar spine, w/o contrast - mri lumbar evalaute lumbar radic 2024 025 [email or web address] [facility] ([facility]), [address], [place], [address], 09/05/2024 10:00:50 Medication Orders cycloben zaprine 10 mg tablet [address], [address] [place], [place], [id number], 08/23/2024 10:45:27 Patient TargetsNo targets recorded. Patient [...] contr ast No observ ation record ed. [facility] [address], [place], [address], 08/30/2024 11:58:53 08/30/1908/28/2024 MRI, lumba r spine , w/o contr ast [facility] Access ion Number : [id number] Patien t Name: Dimas oa, Radha Medica l Record Number : [id number] Date of : 1970 Date of Exam: 2024 Referr ing Physic cinthia: [facility] [address] [facility], [facility] [address] Exam: MR Lumbar Spine (C-) CPT 69486 Room Descri ption: [facility] Verio 3.0T HISTOR Y: Lumbag o with sciati ca. Bilate ral leg pain. TECHNI QUE: Multip lanar multis equenc e MRI of the lumbar spine withou t contra st. COMPAR JASMIN: No prior studie s are availa ble for compar jasmin at [facility] . FINDIN [...] Normal . L2-L3: Minima l broad- based gate services supervisor ior disc bulge. No centra l canal stenos is. Minima l forami nal narrow ing. L3-L4: Mild concen tric disc bulge. No signif icant centra l canal narrow ing. Mild forami nal narrow ing. L4-L5: Mild broad- based gate services supervisor ior disc bulge. No centra l canal stenos is. Minima l right and mild left forami nal narrow ing. L5-S1: No centra l canal or forami nal stenos is. IMPRES DALIA: Mild degene rative change s of the lumbar discs with broad- based gate services supervisor ior disc bulges as detail ed above. No nerve root imping ement or signif icant centra l canal narrow ing. Electr onical ly Signed By: Molina Agudelo MD [address] [facility] ([facility]) [address], [place], [address], 08/30/2024 11:59:04 11/07/19 25 11/06/2024 XR, hip + pelvi s, unila teral , 2 or 3 view http:/ [email or web address] ?Encry pted=s hAaTro YD8dLq bEUv6g %2BXZw aYqtaq 0bqfl% 2Fg9IQ a4ajBk vP9nXo QUaueC m3YtLR FvZlgJ JJ8mAn HZtai3 4g3761 AC0KqY nmHUaC jKiQtr MwF INTERFACE [facility] [address], [place], [address], 11/06/2024 10:44:35 11/07/19 25 11/06/2024 XR, hip + pelvi s, unila teral , 2 or 3 view http:/ [email or web address] ?Encry pted=s hANunuo YD8dLq bEUv6g %2BXZw aYqtaq 0bqfl% 2Fg9IQ a4ajBk vP9nXo QUaueC m3YtLR FvZlgJ JJ8mAn HZtai3 7i1974 AC0KqY nmHUaC jKiQtr MwF INTERFACE [facility] [address], [place], [address], 11/06/2024 10:44:37 Result Notes None recorded. Problems Name Problem SNOMED Code Status Onset Date Resolution Date Notes Provider Name and Address Organization Details Recorded Time Lumbar radiculopathy 063489231 Active 2024 LILO MARCOS [facility] [place] - [facility] 11:52:05 Hip pain 20141320 Active 2024 Meron Cowart PA-C [address], [place], [address] [place] [address] - [facility] 08:38:43 Problem Notes None recorded. Procedures Surgical History None recorded. Imaging Results Imaging Date Name Status LastModified by Organiz ation Details LastModified Time 08/28/2024 MRI, lumbar spine, w/o contrast completed [facility] [address] [facility], [place], [address], 08/30/2024 11:58:53 08/28/2024 MRI, lumbar spine, w/o contrast completed [email or web address] [facility] ([facility]) [address], [place], [address], 08/30/2024 11:59:04 11/06/2024 XR, hip + pelvis, unilateral, 2 or 3 view completed [facility] [address], [place], [address], 11/06/2024 10:44:35 11/06/2024 XR, hip + pelvis, unilateral, 2 or 3 view completed INTERFACE [facility] [address], [place], [address], 11/06/2024 10:44:37 Procedure Notes None recorded. Medical Equipment None Reported. Allergies Allergen ID Allergen Name Allergen Category Reaction Reaction Severity Criticality Documentation Date Start Date Code Code System Note Provider Name and Address Organization Details Recorded Time 542713 peanut allergeni c extract food,medi cation Not available Not available Not available 09/23/2024 09004 8 RxNorm LILO MARCOS [facility] 5 10:57:24 814923 tree nut food Not available Not available Not available 09/23/2024 81776 UNK LILO HEMANT [facility] 5 10:57:32 400040 avocado allergeni c extract food Not available Not available Not available 09/23/2024 13318 2 RxNorm LILO MARCOS [facility], [facility] 5 10:57:38 271488 shellfish derived food,medi cation Not available Not available Not available 09/23/2024 53853 ROGELIO MARCOS [facility] 5 10:57:46 Medications Name Sig Start Date [...] Not Available Not Available No t Available [facility] with Large Mask USE DIRECTED TWICE DAILY [...] Updated DateTime 08/23/2024 160.02 cm 31.7 kg/m2 99129.03 g Eloisa Munson [facility] 08/23/2024 09:01:46 Date Recorded Body height Body mass index (BMI) Body weight Provider Name and Address Organization Details Last Updated DateTime 09/23/2024 160.02 cm 31.7 kg/m2 13461.03 g LILO MARCOS [facility] 09/23/2024 10:57:13 Date Recorded Body height Body mass index (BMI) Body weight Provider Name and Address Organization Details Last Updated DateTime 11/06/2024 160.02 cm 31.9 kg/m2 10971.63 g [place] - [facility] 11/06/2024 10:39:22 Social History None recorded. Functional Status None recorded. Mental Status None recorded. Family History Nothing Reported. Medical History Condition Response Breathing or lung disorders Y Anxiety/Depression Y Anemia Y Arthritis Y Seizures/Epilepsy Y Headaches Y Thyroid Problems Y Cholesterol Y Gynecological HistoryNo gynecological history recorded. Obstetrics History GPAL:G 0 P 0 0 0 0 Past Encounters Encounter ID Performer Location Encounter Start Date Encounter Closed Date Diagnosis/Indication Diagnosis SNOMED-CT Code Diagnosis ICD10 Code Diagnosis Note [id number] DARINEL KEARNS [address] [place] [address] 08/23/2024 08:53:26 09/05/2024 10:00:50 Acute back pain with sciatica 939099842 M54.41 [id number] DARINEL KEARNS [address] [place] [address] 09/23/2024 10:00:46 10/01/2024 14:00:20 Lumbar radiculopathy 025356138 M54.16 [id number] DARINEL [facility] [address] [place] [address] 11/06/2024 10:28:24 11/21/2024 10:01:49 Hip pain 76200122 M25.551 Femoral ac etabular impingement of right hip joint 8279395624 476209 M25.851 Health Concerns Section Related Observation LastModified by Organization Detai ls LastModified Time None Recorded Concern Status LastModified by Organization Details LastModified Time None Recorded Advance Directives Directive None Recorded Payers Encounter Date Sequence Insurance Name Policy Number Policy Farrell Covered Member ID Farrell Member ID Guarantor Name 08/23/2024 1 [place] [employer] (MEDICAID) [facility] [id number] [facility] Fernandez 09/23/2024 1 [place] [employer] [place]ICAID) [facility] Fernandez [id number] [facility] Fernandez 11/06/2024 1 [place] [facility] (MEDICAID) Radha Fernandez [id number] Radha Fernandez Notes Date Note Type Note [...] her primary care physician as well as [facility]. She previously has trialed muscle [...] clonus X-rays ordered, obtained and reviewed at [facility], 2 views of the lumbar [...] 3 to 4 weeks for MRI review. [employer] speech recognition analysis lead software was used to create portions of this document. An attempt at proofreading has been made to minimize errors. Please call for corrections. EDUARDO VELASQUEZ PA-C [address] [facility] [address], [place], [address], [facility] - [facility] 08/23/2024 10:48:40 09/23/2024 text/html I am [...] time. She has had these done at [facility] in the past and is interested in trialing another office at this time. A formal referral was sent to [facility] pain management in office today. Patient will follow-up with myself in 3 to 4 months. At the end of the appointment patient also started to describe signs and symptoms of hip flexor tendinitis on the right side was referred to a sports physician family service assistant for follow-up of her right hip. [employer] speech recognition analysis lead software was used to create portions of this document. An attempt at proofreading has been made to minimize errors. Please call for corrections. EDUARDO VELASQUEZ PA-C [address] [place] [address] [address], [place], [address], [facility] - [facility] 09/23/2024 11:41:52 11/06/2024 text/html I am seeing the patient today under the supervision of {{Sridhar Burnett ivan [facility]#}} who was available but who did not see the patient. HPI: 53-year-old female patient presents today for right hip pain ongoing for several years, denies injury. She reports ongoing right sided lower back pain. Localizes pain in her hip to her groin. She reports history of trochanteric bursa injection in May at [facility] that did provide her with relief of [...] were ordered, obtained and reviewed today at [facility] demonstrates minimal joint space narrowing. IMPRESSION: 1. {{Right* Left Bilatera l}} hip femoroacetabular impingement mild trochanteric bursitis2. Lumbago? r ight sided PLAN: Findings reviewed. Discussed her pain appears multifactorial nature. Recommended she follow-up with [facility] pain management, referral was resent and [...] agrees with the plan. [employer] speech recognition analysis lead software was used to create portions of this document. An attempt at proofreading has been made to minimize errors. Please call for corrections. Meron Cowart PA-C [address], [place], [address], [place] - [facility] 11/06/2024 11:45:09 OBGyn Episode No OBEpisode recorded.
--- OUTSIDE RECORDS SUMMARY | 2024-12-03 12:19 | XMS_ITS | Encounter Summary ---
Author Organization [employer] Address [address] [place] [address] Care Team Providers Care Dough Cutter Name Role Phone Gabbie Cisneros MD Primary Care Provider [phone] Encounter Details Date Type Department Care Team (Late st Contact Info) Description 01/19/2024 Orders Only [facility] [address] [place] [address] Provider, MD Marina Social History Tobacco Use [...] 10:15 AM EDT Office Visit [facility] [address] [place], [place] [phone] Gabbie Cisneros MD [address] [place] [address] documented as of this encounter Goals Goal Patient Goal Type Associated Problems Recent Progress Patient-Stated? Author Patient will adhere to medication regimen General No Jerry Shelby, PharmD Help patient manage asthma General No Jerry Shelby, PharmD Note: Reduce use of LUANEN to 2x/week documented as of this encounter [...] documented as of this encounter Care Teams Dough Cutter Relationship Specialty Start Date End Date Gabbie Cisneros MD [address] [place] [address] PCP - General Family Medicine 05/02/18 Saloni Kaminski Dramatic Art TeacherSkein Yard Drier 05/19/23 Rosemarie Palmer [address] [place] [address] Nurse Practitioner Neurology 09/18/23 Milad Mcfarland Dramatic Art TeacherSkein Yard Drier 10/01/24 documented as of this encounter
--- OUTSIDE RECORDS SUMMARY | 2024-12-03 12:19 | XMS_ITS | Clinical Summary ---
Author Organization [facility] Address [address] [place] [address] Care Team Providers Care Marine Surveyor Name Role Phone Gabbie Cisneros Primary Care Provider Unavailabl e Allergies Active Allergy Reactions Severity Noted Date Comments Codeine Hives/Urticaria 10/26/2017 Fruit (Generic) Numbness, tingling o r swelling of the lips, tongue or mouth 10/26/2017 Watermelon,kiwi,banan a,apple, dragonfruit Iv Contrast Dye Hives/Urticaria High 10/26/2017 Morphine High 10/26/2017 Other (No Interaction Warnings) 05/21/2019 Chicken meat- No reaction documented. Peanuts Anaphylaxis High 10/26/2017 Shellfish Allergy Anaphylaxis High 10/26/2017 Medications Medication Sig Dispensed Refills Start Date End Date Status EPINEPHrine HCl, Anaphylaxis, (EPIPEN 2-YONI IM)Indications:Type 2 diabetes mellitus without complication, without long-term current use of insulin ([facility]),Essential hypertension Inject into the muscle. 0 Active ketoconazole (NIZORAL) 2 % shampooIndications: Type 2 diabetes mellitus without complication, without long-term current use of insulin ([facility]),Essential hypertension Apply topically daily as needed. 0 Active fluocinolone (VANOS) 0.01 % creamIndications:Ty pe 2 diabetes mellitus without complication, without long-term current use of insulin ([facility]),Essential hypertension Apply topically 2 times daily. 0 Active Mometasone Furoate 110 MCG/INH AEROSOL POWDER,BREATH ACTIVATEDIndication s:Type 2 diabetes mellitus without complication, without long-term current use of insulin ([facility]),Essential hypertension Inhale into the lungs. 0 Active ketotifen 0.025 % ophthalmic solutionIndications :Type 2 diabetes mellitus without complication, without long-term current use of insulin ([facility]),Essential hypertension 1 Drop daily. 0 Active loratadine (CLARITIN) 10 MG tabletIndications:T ype 2 diabetes mellitus without complication, without long-term current use of insulin ([facility]),Essential hypertension Take 10 mg by mouth daily. 0 Active atorvastatin (LIPITOR) 10 MG tabletIndications:T ype 2 diabetes mellitus without complication, without long-term current use of insulin ([facility]),Essential hypertension Take 10 mg by mouth daily. 0 Active Blood Glucose Monitoring Suppl (ONETOUCH ULTRA 2)Indications:Type 2 diabetes mellitus without complication, without long-term current use of insulin ([facility]),Essential hypertension 0 Active ONETOUCH LANCETSIndications: Type 2 diabetes mellitus without complication, without long-term current use of insulin ([facility]),Essential hypertension 2 times daily. 0 Active glucose blood test strips (ASCENSIA AUTODISC ,ONE TOUCH ULTRA TEST ) stripIndications:Ty pe 2 diabetes mellitus without complication, without long-term current use of insulin ([facility]),Essential hypertension 1 Strip by In Vitro route 2 times daily. 0 Active ALBUTEROL SULFATE 108 (90 BASE) MCG/ACT Aero Soln Inhale 2 Puffs into the lungs 4 times daily as needed for Cough or Wheezing. 1 Inhaler 5 10/26/2017 Active buPROPion (WELLBUTRIN SR) 150 MG 12 hr tablet 150 mg 2 times daily. 0 11/20/2017 Active triamcinolone (KENALOG) 0.5 % cream Apply topically 3 times daily. 0 Active Multiple Vitamins-Minerals (OPTISOURCE POST BARIATRIC SURG) Chew TabIndications:Inte stinal malabsorption following gastrectomy Take 1 Tab by mouth daily for 60 days. 60 Tab 3 09/03/2019 Active ondansetron (ZOFRAN) 8 MG tablet Take 1 Tab by mouth every 8 hours as needed for Nausea. 60 Tab 1 04/10/2020 Active Hydrocortisone, Perianal, (PROCTOCARE-HC) 2.5 % Cream Apply 1 Inch topically 2 times daily. 1 Tube 5 07/13/2020 Active amitriptyline (ELAVIL) 25 MG tablet Take 1 Tab by mouth at bedtime. 30 Tab 5 07/13/2020 Active gabapentin (NEURONTIN) 100 MG capsule Take by mouth 3 times daily. 0 07/13/2020 Active albuterol (PROVENTIL) (2.5 MG/3ML) 0.083% nebulizer solution Take 1 Vial by nebulization every 6 hours as needed for Wheezing. 0 07/13/2020 Active DULoxetine HCl 20 MG Capsule Delayed Release Sprinkle Take 20 mg by mouth 2 times daily. 60 Cap 0 07/13/2020 Active ferrous sulfate 325 (65 Fe) MG tablet Take 1 tablet by mouth daily. 30 tablet 12 07/13/2020 Active magnesium oxide (MAG-OX) 400 MG tablet Take 1 Tab by mouth daily. 30 Tab 11 07/13/2020 Active pantoprazole (PROTONIX) 40 MG tablet Take 1 Tab by mouth 2 times daily (before meals). 60 Tab 5 07/13/2020 Active verapamil (CALAN-SR) 120 MG CR tablet Take 1 Tab by mouth at bedtime. 30 Tab 11 07/13/2020 Active budesonide-formoter ol (SYMBICORT) 160-4.5 MCG/ACT inhaler Inhale 2 Puffs into the lungs 2 times daily. 1 Inhaler 0 07/13/2020 Active aspirin 81 MG chewable tablet Take 81 mg by mouth daily. 0 Active Wheat Dextrin (Benefiber Drink Mix) Powd PackIndications:Int estinal malabsorption following gastrectomy,Constip ation, unspecified constipation type Take 1 Package by mouth daily for 30 days. 60 Each 3 01/12/2021 Active Pmyjj-A-Chspthetjjx se (Beano) TabIndications:Inte stinal malabsorption following gastrectomy Take 1 tablet by mouth 4 times daily for 120 doses. 120 tablet 1 01/12/2021 Active cyclobenzaprine (FLEXERIL) 10 MG tablet Take 10 mg by mouth 3 times daily as needed. 0 Active Carafate 1 GM/10ML suspensionIndicatio ns:S/P gastric bypass,Acute marginal ulcer shake liquid and take 10ml by mouth four times daily. 1200 mL 3 06/23/2022 Active Copper 5 MG CapIndications:Inte stinal malabsorption following gastrectomy Take 1 Capsule by mouth daily for 30 days. 30 Capsule 0 07/21/2022 Active Calcium Carb-Cholecalcifero l (Oyster Shell Calcium w/D) 500-5 MG-MCG TabIndications:Inte stinal malabsorption following gastrectomy TAKE 1 TABLET BY MOUTH DAILY 30 Tablet 1 09/01/2022 Active Cholecalciferol (Vitamin D3) 1.25 MG (27467 UT) CapIndications:Radha min D deficiency Take 1 Capsule by mouth once a week. 8 Capsule 0 01/26/2023 Active Nutritional Supplements (Ensure High Protein) LiquidIndications:I ntestinal malabsorption following gastrectomy Take 1 Units by mouth daily for 60 days. Take one bottle daily. 2400 mL 2 01/27/2023 Active topiramate (TOPAMAX) 100 MG tabletIndications:C lass 1 obesity due to excess calories without serious comorbidity with body mass index (BMI) of 31.0 to 31.9 in adult TAKE 1 TABLET BY MOUTH DAILY 90 Tablet 2 05/26/2023 Active Multiple Vitamins-Minerals (Multivitamin Women 50+) TabIndications:Inte stinal malabsorption following gastrectomy TAKE 1 TABLET BY MOUTH DAILY 60 Tablet 3 07/19/2023 Active fluticasone-salmete rol (Advair HFA) 115-21 MCG/ACT inhalerIndications: Moderate persistent asthma, unspecified whether complicated Inhale 2 Puffs into the lungs 2 times daily for 90 days. 3 g 3 10/13/2023 Active ALBUTEROL SULFATE (ProAir HFA) 108 (90 Base) MCG/ACT Aero SolnIndications:Mod erate persistent asthma, unspecified whether complicated Inhale 2 Puffs into the lungs every 6 hours as needed for Cough, Wheezing or Shortness of Breath for up to 90 days. 3 g 3 10/13/2023 Active Semaglutide,0.25 or 0.5MG/DOS, (Ozempic, 0.25 or 0.5 MG/DOSE,) 2 MG/3ML Solution Pen-injector Inject 0.25 mg into the skin once a week. 3 mL 0 01/10/2024 Active Vitamin A 3 MG (87195 UT) Cap TAKE ONE CAPSULE EVERY MORNING 30 Capsule 11 04/11/2024 Active pantoprazole (PROTONIX) 40 MG tablet Take 1 Tablet by mouth daily. 30 Tablet 5 06/05/2024 Active Active Problems Problem Noted Date Severely overweight 12/03/2019 Intestinal malabsorption following gastr ectomy 09/03/2019 S/P gastric bypass 06/20/2019 Migraine with aura 03/12/2019 Class 1 obesity due to exces s calories with serious comorbidity and body mass index (BMI) of 33.0 to 33.9 in adult 11/13/2018 Spondylosis of lumbar region without mye lopathy or radiculopathy 01/24/2018 Pituitary microadenoma 10/26/2017 Controlled diabetes mellitus type II wit hout complication Hypertension Depression with anxiety Fibromyalgia Anemia Resolved Problems Problem Noted Date Resolved Date Obesity (BMI 30-39.9) 12/27/2018 04/16/2019 Immunizations Name Administration Dates Next Due Pneumoccoccal(Adult) Polysaccharide PPSV23 02/05 Family History Medical History Relation Name Comments CAD Brother 1 Cancer Brother 2 Cancer Father Skin cancer, colon cancer Father Arthritis Maternal Grandfather Arthritis Maternal Grandmother Arthritis Mother Osteoporosis, mental disorder Mother No Known Problems Paternal Grandfather No Known Problems Paternal Grandmother Relation Name Status Comments Brother 1 Brother 2 Father Maternal Grandfather Maternal Grandmother Mother Paternal Grandfather Paternal Grandmother Social History Tobacco Use Types Packs/Day Years Used Date Smoking Tobacco: Former Cigarettes 0.3 8 0 08/1981 - 08/21/2014 Smokeless Tobacco: Never Tobacco Cessation:Counseling Given: Not Answered Alcohol Use Standard Drinks/Week Comments No 0 (1 standard drink = 0.6 oz pur e alcohol) Sex Assigned at Date Recorded Not on file Job Start Date Occupation Industry Not on file Not on file Not on file Last Filed Vital Signs Vital Sign Reading Time Taken Comments Blood Pressure 112/73 01/09/2024 3:46 PM EDT Pulse 76 01/09/2024 3:46 PM EDT Temperature 36.4 ??C (97.6 ??F) 01/09/2024 3:46 PM ED T Respiratory Rate 18 01/09/2024 3:46 PM EDT Oxygen Saturation 100% 10/13/2023 8:52 AM EST Inhaled Oxygen Concentration - - Weight 83.2 kg (183 lb 6.4 oz) 01/09/2024 3:46 P M EDT Height 160 cm (5' 3 ) 01/09/2024 3:46 PM EDT Body Mass Index 32.49 01/09/2024 3:46 PM EDT Plan of Treatment Health Maintenance Due Date Last Done Comments DIABETES: ANNUAL EYE EXAM 12/10/1987 DIABETES: ANNUAL FOOT EXAM 12/10/1987 HEPATITIS C SCREENING 12/10/1987 BASELINE HEALTH EXAM 40-64 2009 MAMMOGRAM 02/03/2013 02/04/2012 DIABETES/HEART DISEASE: JASPREET AL CHOLESTEROL (LDL) 12/06/2018 12/06/2017 DIABETES: ANNUAL URINE PROTE IN TEST (MICROALBUMIN) 12/06/2018 12/06/2017 SHINGLES VACCINE (1 of 2) 12/10/2019 CERVICAL CANCER SCREENING 04/09/2023 04/09/2018 DIABETES: BLOOD SUGAR CONTRO L TEST (HGBA1C) 12/25/2023 09/26/2023, 01/12/2021, 12/06/2017 Covid-19 Vaccine (3 - 2022-2 4 season) 2024 01/01/2021, 12/11/2020 BMI CHECK/ADVISE 08/21/2024 01/09/2024, 01/2024, 03/28/2023, Additional history exists DEPRESSION SCREENING/FOLLOWUP 08/21/2024, 01/24/2018, 10/26/2017, Additional history exists SOCIAL NEEDS SCREENING 08/21/2024 INFLUENZA (Season Ended) 2025 DTAP/TDAP/TD (3 - Td or Tdap) 04/16/2028 04/16/2018, 03/12/2013 COLON CANCER SCREENING 05/13/2030 05/13/2020 PNEUMOCOCCAL VACCINE FOR HIG H RISK PATIENTS (#2) 2034 04/16/2018, 02/05/2018, 03/12/2013 Care Teams Marine Surveyor Relationship Specialty Start Date End Date Gabbie Cisneros PCP - General Family Practice 12/27/18
--- OUTSIDE RECORDS SUMMARY | 2024-12-03 12:19 | XMS_ITS | Encounter Summary ---
Author Organization [employer] Address [address] [facility] [address] [place] [address] Care Team Providers Care Skiver Sock Linings Name Role Phone Gabbie Cisneros MD Primary Care Provider [phone] Reason for Visit * Reason Onset Date Comments ED F/U 07/27/2022 Encounter Details Date Type Department Care Team ([facility] st Contact Info) Description 07/27/2022 Telephone [facility] [address] [place], [place] [id number] Gabbie Cisneros MD [address] [place] [address] ED F/U Social History Tobacco Use Types [...] PM EST Margy, a nurse calling from [facility] to report ED visit on 07/26/22 at [facility]. Sandra states not knowing the reason of the ED visit. Sandra was advised will forward to team nurse for follow up. Margy's contact number [phone]. Please contact pt for follow up at [phone] documented in this encounter Plan of Treatment Upcoming Encounters Date Type Department Care Team ([facility] st Contact Info) Description 01/22/2025 10:15 AM EDT Office Visit [facility] [address] [place] [address] Gabbie Cisneros MD [address] [place] [address] documented as of this encounter Visit Diagnoses Not on filedocumented in this encounter Care Teams Skiver Sock Linings Relationship Specialty Start Date End Date Gabbie Cisneros MD [address] [place] [address] PCP - General Family Medicine 05/02/18 Saloni Kaminski Law Office ReceptionistHuman Resources Benefits Specialist 05/19/23 Rosemarie Palmer [address] [place] [address] Nurse Practitioner Neurology 09/18/23 Milad Mcfarland Law Office ReceptionistHuman Resources Benefits Specialist 10/01/24 documented as of this encounter
--- OUTSIDE RECORDS SUMMARY | 2024-12-03 12:19 | XMS_ITS | Encounter Summary ---
Author Organization [employer] Address [address] [address] [place] [address] Care Team Providers Care Window Glazier Name Role Phone Gabbie Cisneros MD Primary Care Provider [phone] Reason for Visit * Reason Onset Date Comments call back 09/23/2022 Encounter Details Date Type Department Care Team ([facility] st Contact Info) Description 09/23/2022 Telephone [facility] [address] [place] [address] Gabbie Cisneros MD [address] [place] [address] call back Social History Tobacco Use Types [...] EST Return call placed to Jackie from [facility] who states pt has been c/o increased [...] 3:25 PM EST Tc from jackie with [facility] visiting nurse requesting a call back regarding pt medication and having blood work done Please contact jackie at [phone] documented in this encounter Plan of Treatment Upcoming Encounters Date Type Department Care Team (Late st Contact Info) Description 01/22/2025 10:15 AM EDT Office Visit [facility] P[facility] [address] [place], [place] [phone] Gabbie Cisneros MD [address] [place] [address] documented as of this encounter Visit Diagnoses Not on filedocumented in this encounter Additional Health Concerns Assessment Noted Time PHQ-9 Depression Total Score: 9 08/29/19 23 9:49 AM EST documented as of this encounter Care Teams Window Glazier Relationship Specialty Start Date End Date Gabbie Cisneros MD [address] [place] [address] PCP - General Family Medicine 05/02/18 Saloni Kaminski Pile Driver Operator HelperSlate Picker 05/19/23 Rosemarie Palmer [address] [place] [address] Nurse Practitioner Neurology 09/18/23 Milad Mcfarland Pile Driver Operator HelperSlate Picker 10/01/24 documented as of this encounter
--- OUTSIDE RECORDS SUMMARY | 2024-12-03 12:19 | XMS_ITS | Encounter Summary ---
Author Organization [employer] [facility] Address [address] [place] [address] Care Team Providers Care Quiller Machine Fixer Name Role Phone Gabbie Cisneros Primary Care Provider Unavailabl e Encounter Details Date Type Department Care Team Description 12/15/2023 Orders Only Medical Records [address] [place] [address] Nathanael Morin MD [address] [place] [address] [address] [place] [address] Social History Tobacco Use Types Packs/Day Years [...] on file documented as of this encounter Procedures Procedure Name Priority Date/Time Associated Diagnosis Comments OUTSIDE LAB Routine 12/14/2023 documented in this encounter Results * OUTSIDE LAB (12/14/2023) Nathanael Morin MD LAB documented in this encounter Visit Diagnoses Not on filedocumented in this encounter Care Teams Quiller Machine Fixer Relationship Specialty Start Date End Date Gabbie Cisneros PCP - General Family Practice 12/27/18 documented as of this encounter
--- OUTSIDE RECORDS SUMMARY | 2024-12-03 12:19 | XMS_ITS | Referral Summary ---
Author Organization [facility] Address [address] [place] [address] Care Team Providers Care Paint Formulator Name Role Phone Gabbie Cisneros Primary Care Provider [phone] Allergies Active Allergy Reactions Criticality Noted Date [...] 1 tablet by mouth daily. Active FreeStyle [place] Lite meter TEST BLOOD SUGAR DIRECTED 06/24/20 [...] ONE TABLET AT BEDTIME 09/14/19 23 Active wgvqjbimydng-Dg-oj on-minerals tablet Take 1 tablet by mouth. [...] Not on file Procedures * Due to [place] Accumulate law, this organization might not be sharing negative HIV tests. Procedure Name Priority Date/Time Associated Diagnosis Comments BASIC METABOLIC PANEL Routine 03/29/2024 3:51 PM EDT Pituitary microadenoma HEMOGLOBIN A1C Routine 10/07/2022 2:01 PM EST Type 2 diabetes mellitus without complication, without long-term current use of insulin from Last 3 Months or Most Recently Relevant to Health Maintenance Results * Due to [place] Accumulate law, this organization might not be sharing negative HIV tests. * Basic Metabolic Panel (03/29/2024 3:51 PM EDT) NA 141 135 - 145 mmol/L 03/29/2024 5:29 PM EDT [facility] K 4.0 3.5 - 5.3 mmol/L 03/29/2024 5:29 PM EDT [facility] Cl 104 98 - 107 mmol/L 03/29/2024 5:29 PM EDT [facility] CO2 27 24 - 32 mmol/L 03/29/2024 5:29 PM EDT [facility] BUN 11 7 - 23 mg/dL 03/29/2024 5:29 PM EDT [facility] Creatinine 0.65 0.50 - 1.20 mg/dL 03/29/2024 5:29 PM EDT [facility] Glucose 98 65 - 99 mg/dL 03/29/2024 5:29 PM EDT [facility] Calcium 8.7 8.6 - 10.5 mg/dL 03/29/2024 5:29 PM EDT [facility] Anion Gap 10 5 - 15 03/29/2024 5:29 PM EDT [facility] eGFR >90 >=60 mL/min/1. 73m2 03/29/2024 5:29 PM EDT [facility] Comment:The estimated glomer ular [...] Sue NP LAB BLOOD ORDERABLES Final Result [email or web address] [address] [place] [address], * Hemoglobin A1c (10/07/2022 2:01 PM EST) Hemoglobin A1C 4.9 <5.7 % of total Hgb 10/08/2022 6:38 AM [facility] Comment: For the purpose of screening for the presence of diabetes: <5.7% ? Consistent with the absence of diabetes 5.7-6.4% ?Consistent with increased risk for diabetes ?(prediabetes) > or =6.5% ??Consistent with diabetes This assay result is consistent with a decreased risk of diabetes. Currently, no consensus exists regarding use of hemoglobin A1c for diagnosis of diabetes in children. According to [place] Diabetes Association (ADA) guidelines, hemoglobin A1c <7.0% represents optimal control in non- diabetic patients. Different metrics may apply to specific patient populations. Standards of Medical Care in Diabetes(ADA). ?? eAG (MG/DL) 94 mg/dL 10/08/2022 6:38 AM [facility] eAG (MMOL/L) 5.2 mmol/L 10/08/2022 6:38 AM [facility] Blood Structure of peripheral vein / Unknown Venipuncture / Unknown 10/07/2022 2:01 PM EST 10/07/2022 2:33 PM EST [facility] - 10/08/2022 6:38 AM EST [facility] Received Date: Zoila Sue SCALE TANK OPERATOR LAB BLOOD ORDERABLES Final Result [facility] [address] [facility] [address], [place] [address], [employer] [address] [facility] [address], [place] [address], from Last 3 Months or Most Recently Relevant to Health Maintenance Insurance [address] [place], [place] [address]ALTH Care Teams Paint Formulator Relationship Specialty Start Date End Date Gabbie Cisneros [address] [place] [address] [place] [address] PCP - General Family Medicine 06/15/22
--- OUTSIDE RECORDS SUMMARY | 2024-12-03 12:19 | XMS_ITS | Clinical Summary ---
Author Organization [facility] Address [address] [place] [address] Care Team Providers Care Chain Testing Machine Operator Name Role Phone Gabbie Cisneros Primary Care Provider [phone] Allergies Active Allergy Reactions Criticality Noted Date [...] 1 tablet by mouth daily. Active FreeStyle [place] Lite meter TEST BLOOD SUGAR DIRECTED 06/24/20 [...] ONE TABLET AT BEDTIME 09/14/19 23 Active cxpewknokhqb-Tb-cm on-minerals tablet Take 1 tablet by mouth. [...] Completed 09/10/2020, 07/09/2020 Procedures * Due to [place] Toura law, this organization might not be sharing negative HIV tests. Procedure Name Priority Date/Time Associated Diagnosis Comments BASIC METABOLIC PANEL Routine 03/29/2024 3:51 PM EDT Pituitary microadenoma HEMOGLOBIN A1C Routine 10/07/2022 2:01 PM EST Type 2 diabetes mellitus without complication, without long-term current use of insulin from Last 3 Months or Most Recently Relevant to Health Maintenance Results * Due to [place] Tou[place] law, this organization might not be sharing negative HIV tests. * Basic Metabolic Panel (03/29/2024 3:51 PM EDT) NA 141 135 - 145 mmol/L 03/29/2024 5:29 PM EDT [facility] K 4.0 3.5 - 5.3 mmol/L 03/29/2024 5:29 PM EDT [facility] Cl 104 98 - 107 mmol/L 03/29/2024 5:29 PM EDT [facility] CO2 27 24 - 32 mmol/L 03/29/2024 5:29 PM EDT [facility] BUN 11 7 - 23 mg/dL 03/29/2024 5:29 PM EDT [facility] Creatinine 0.65 0.50 - 1.20 mg/dL 03/29/2024 5:29 PM EDT [facility] Glucose 98 65 - 99 mg/dL 03/29/2024 5:29 PM EDT [facility] Calcium 8.7 8.6 - 10.5 mg/dL 03/29/2024 5:29 PM EDT [facility] Anion Gap 10 5 - 15 03/29/2024 5:29 PM EDT [facility] eGFR >90 >=60 mL/min/1. 73m2 03/29/2024 5:29 PM EDT [facility] Comment:The estimated glomer ular [...] 03/29/2024 4:43 PM EDT us Zoila Sue BRICK CHIMNEY BUILDER LAB BLOOD ORDERABLES Final Result [facility] [address] [place] [address], * Hemoglobin A1c (10/07/2022 2:01 PM EST) Hemoglobin A1C 4.9 <5.7 % of total Hgb 10/08/2022 6:38 AM EST [facility] Comment: For the purpose of screening for the presence of diabetes: <5.7% ? Consistent with the absence of diabetes 5.7-6.4% ?Consistent with increased risk for diabetes ?(prediabetes) > or =6.5% ??Consistent with diabetes This assay result is consistent with a decreased risk of diabetes. Currently, no consensus exists regarding use of hemoglobin A1c for diagnosis of diabetes in children. According to [place] Diabetes Association (ADA) guidelines, hemoglobin A1c <7.0% represents optimal control in non- diabetic patients. Different metrics may apply to specific patient populations. Standards of Medical Care in Diabetes(ADA). ?? eAG (MG/DL) 94 mg/dL 10/08/2022 6:38 AM EST [facility] eAG (MMOL/L) 5.2 mmol/L 10/08/2022 6:38 AM [facility] Blood Structure of peripheral vein / Unknown Venipuncture / Unknown 10/07/2022 2:01 PM EST 10/07/2022 2:33 PM EST [facility] - 10/08/2022 6:38 AM EST [facility] Received Date: us Zoila Sue BRICK CHIMNEY BUILDER LAB BLOOD ORDERABLES Final Result [facility] [address] [facility] [address], [place] [address], [place] [phone] [facility] [address] [facility] 3rd [address], [place] [address], [place] [phone] from Last 3 Months or Most Recently Relevant to Health Maintenance [place] [address] Care Teams Chain Testing Machine Operator Relationship Specialty Start Date End Date Gabbie Cisneros [address] [place] [address] PCP - General Family Medicine 06/15/22
--- OUTSIDE RECORDS SUMMARY | 2024-12-03 12:19 | XMS_ITS | Encounter Summary ---
Author Organization [facility] Address [address] [place] [address] Care Team Providers Care Counter Roller Name Role Phone Gabbie Cisneros Primary Care Provider Unavailabl e Reason for Visit * Reason Comments E-prescribe Rx Request Encounter Details Date Type Department Care Team Description [facility] [address] [place] [phone] Will Verduzco MD [address] [place] [address] [address] [place] [address] E-prescribe Rx Request Social History Tobacco Use [...] on filedocumented in this encounter Care Teams Counter Roller Relationship Specialty Start Date End Date Gabbie Cisneros PCP - General Family Practice 12/27/18 documented as of this encounter
--- OUTSIDE RECORDS SUMMARY | 2024-12-03 12:19 | XMS_ITS | Encounter Summary ---
Author Organization [employer] Address [address] [facility] 7t [place] [address] Care Team Providers Care Trade Marker Name Role Phone Gabbie Cisneros MD Primary Care Provider [phone] Encounter Details Date Type Department Care Team ([facility] st Contact Info) Description 01/18/2024 Orders Only [facility] [address] [place] [address] Provider, MD Marina Social History Tobacco Use [...] Description 01/22/2025 10:15 AM EDT Office Visit [facility] CHC MED & PEDS [address] [place], [place] [phone] Gabbie Cisneros MD 505 [place] [address] documented as of this encounter Goals Goal [...] documented as of this encounter Care Teams Trade Marker Relationship Specialty Start Date End Date Gabbie Cisneros MD [address] [place] [address] PCP - General Family Medicine 05/02/18 Saloni Kaminski Construction Carpenters HelperTelecommunications Linesworker 05/19/23 Rosemarie Palmer [address] [place] [address] Nurse Practitioner Neurology 09/18/23 Milad Mcfarland Construction Carpenters HelperTelecommunications Linesworker 10/01/24 documented as of this encounter
--- OUTSIDE RECORDS SUMMARY | 2024-12-03 12:19 | XMS_ITS | Encounter Summary ---
Author Organization [facility] Address [address] [place] [address] Care Team Providers Care Biologist Name Role Phone Gabbie Csineros Primary Care Provider Unavailabl e Reason for Visit * Reason Onset Date Comments Provider Call Back 09/28/2022 Encounter Details Date Type Department Care Team Description 09/28/2022 Telephone General Surgery - [place] [address] [facility] [address] [place] [address] Will Bridges MD [address] [place] [address] DRIVE [address] [place] [address] Provider Call Back Social History Tobacco Use Types Packs/Day Years [...] suspected to have Coronavirus/COVID-19? No / Unsure 09/13/2022 8:09 AM EST documented as of this encounter Miscellaneous Notes * Telephone Encounter - Ina Carnes - 09/28/2022 4:19 PM EST I called the patient and scheduled an appointment with Dr. Bridges for tomorrow at 3:30 p.m. * Telephone Encounter - Alba Tony M.A. - 09/28/2022 3:12 PM EST Can you call patient and schedule her for follow up with dr bridges to discuss other medication options. * Telephone Encounter - Ina Carnes - 09/28/2022 1:54 PM EST Patient called and the medication Dr. Bridges prescribed her the Liraglutide - Weight Management 18 MG/3ML Solution Pen-injector her insurance will not cover it and the pharmacy explained that she would have to pay out of pocket the medication is over $300.00. patient would like a call back to see what other options the patient has. Also she needs a refill of the Calcium Carb- Cholecalciferol (Oyster Shell Calcium w/D) 500-5 MG-MCG Tab. documented in this encounter Plan of Treatment Not on file documented as of this encounter Visit Diagnoses Not on filedocumented in this encounter Care Teams Biologist Relationship Specialty Start Date End Date Gabbie Cisneros PCP - General Family Practice 12/27/18 documented as of this encounter
--- OUTSIDE RECORDS SUMMARY | 2024-12-03 12:19 | XMS_ITS | Encounter Summary ---
Author Organization [facility] [employer] [facility] Address [address] [place] [address] Care Team Providers Care Floor Nurse Name Role Phone Gabbie Cisneros Primary Care Provider Unavailabl e Encounter Details Date Type Department Care Team Description 12/19/2023 Orders Only Medical Records [address] [place] [address] Nathanael Morin MD [address] [place] [address] [address] [place] [address] Social History Tobacco Use Types Packs/Day Years [...] Name Priority Date/Time Associated Diagnosis Comments OUTSIDE PATHOLOGY Routine 12/14/2023 documented in this encounter Results * OUTSIDE PATHOLOGY (12/14/2023) Nathanael Morin MD OUTSIDE LAB documented in this encounter Visit Diagnoses Not on filedocumented in this encounter Care Teams Floor Nurse Relationship Specialty Start Date End Date Gabbie Cisneros PCP - General Family Practice 12/27/18 documented as of this encounter
--- OUTSIDE RECORDS SUMMARY | 2024-12-03 12:19 | XMS_ITS | Encounter Summary ---
Author Organization [employer] Address [address] [facility] [address], [place] [address] Care Team Providers Care Press Manager Name Role Phone Gabbie Cisneros MD Primary Care Provider [phone] Encounter Details Date Type Department Care Team (Latest Contact Info) Description 08/19/2022 Orders Only [facility] MEDICINE [address] [place] [address] Rosalva Hidalgo MD [address] [place], [place] [phone] Hypercholesterolemia (Primary Dx) Social History Tobacco Use [...] Description 01/22/2025 10:15 AM EDT Office Visit [facility] CHC MED & PEDS [address] [place], [place] [phone] Gabbie Cisneros MD [address] [place], [place] [phone] documented as of this encounter Visit Diagnoses Diagnosis Hypercholesterolemia- Primary Pure hypercholesterolemia documented in this encounter Care Teams Press Manager Relationship Specialty Start Date End Date Gabbie Cisneros MD [address] [place] [address] PCP - General Family Medicine 05/02/18 Saloni Kaminski Product Design EngineerObiee Consultant 05/19/23 Rosemarie Palmer [address] [place] [address] Nurse Practitioner Neurology 09/18/23 Milad Mcfarland Product Design EngineerObiee Consultant 10/01/24 documented as of this encounter
--- OUTSIDE RECORDS SUMMARY | 2024-12-03 12:19 | XMS_ITS | Encounter Summary ---
Author Organization [facility] [employer] [facility] Address [address] [place] [address] Care Team Providers Care Railroad Switchman Name Role Phone Gabbie Cisneros Primary Care Provider Unavailabl e Reason for Visit * Reason Comments E-prescribe Rx Request Encounter Details Date Type Department Care Team Description 04/01/2024 Refill Bariatric Surgery [address] [place] [address] Will Verduzco MD [address] [place] [address] [address] [place] [address] E-prescribe Rx Request Social History Tobacco Use [...] Vitamin D deficiency Unspecified vitamin D deficiency Class 1 obesity due to excess calories without serious comorbidity with body mass index (BMI) of 31.0 to 31.9 in adult documented in this encounter Care Teams Railroad Switchman Relationship Specialty Start Date End Date Gabbie Cisneros PCP - General Family Practice 12/27/18 documented as of this encounter
--- OUTSIDE RECORDS SUMMARY | 2024-12-03 12:19 | XMS_ITS | Encounter Summary ---
Author Organization [facility] Address [address] [place] [address] Care Team Providers Care Section Cutter Name Role Phone Gabbie Cisneros Primary Care Provider Unavailabl e Reason for Visit * Reason Onset Date Comments Medication 11/22/2022 Encounter Details Date Type Department Care Team Description 11/22/2022 Telephone General Surgery - [place] [address] [facility] [address] [place] [address] Will Verduzco MD [address] [place] [address] [address] [place] [address] Medication Social History Tobacco Use Types Packs/Day Years [...] encounter Miscellaneous Notes * Telephone Encounter - Summer Clayton - 11/22/2022 2:47 PM EDT Patient's appointment rescheduled to 12/15 but out of the phentermine. Patient would like a refillsent to her pharmacy. documented in this encounter Plan of Treatment Not on file documented as of this encounter Visit Diagnoses Not on filedocumented in this encounter Care Teams Section Cutter Relationship Specialty Start Date End Date Gabbie Cisneros PCP - General Family Practice 12/27/18 documented as of this encounter
--- OUTSIDE RECORDS SUMMARY | 2024-12-03 12:19 | XMS_ITS | Encounter Summary ---
Author Organization [facility] Address [address] [place] [address] Care Team Providers Care Pharmaceutical Scientist Name Role Phone Gabbie Cisneros Primary Care Provider Unavailabl e Encounter Details Date Type Department Care Team Description 11/17/2022 Telephone General Surgery [facility] [address] [facility] [address] [place] [phone] Will Verduzco MD [address] [place] [address] [address] [place] [address] Social History Tobacco Use Types Packs/Day Years [...] encounter Miscellaneous Notes * Telephone Encounter - Alba Tony M.A. - 11/17/2022 2:26 PM EDT That's the pharmacy we already have on file for her * Telephone Encounter - Bertha Hernandes - 11/17/2022 2:20 PM EDT Please send all future medications to [facility], this is the only pharmacy the pt wishes to use. documented in this encounter Plan of Treatment Not on file documented as of this encounter Visit Diagnoses Not on filedocumented in this encounter Care Teams Pharmaceutical Scientist Relationship Specialty Start Date End Date Gabbie Cisneros PCP - General Family Practice 12/27/18 documented as of this encounter
--- OUTSIDE RECORDS SUMMARY | 2024-12-03 12:20 | XMS_ITS | Encounter Summary ---
Author Organization [employer] Address [address] [facility] [address] [address] 7t [place] [address] Care Team Providers Care Ruby Engineer Name Role Phone Gabbie Cisneros MD Primary Care Provider Reason for Visit * Reason Onset Date Comments Call Back Request 12/21/2023 Encounter Details Date Type Department Care Team ([facility] st Contact Info) Description 12/21/2023 Telephone [facility] MEDICINE [address] [place] [address] Gabbie Cisneros MD [address] [place] [address] Call Back Request Social History Tobacco Use [...] and was told to call [facility] back mortgage loan underwriter does not see anything noted on the patients chart documented in this encounter Plan of Treatment Upcoming Encounters Date Type Department Care Team (Late st Contact Info) Description 01/22/2025 10:15 AM EDT Office Visit [facility] MED & PEDS [address] [place] [address] Gabbie Cisneros MD [address] [facility] [place] [address] documented as of this encounter Goals Goal [...] documented as of this encounter Care Teams Ruby Engineer Relationship Specialty Start Date End Date Gabbie Cisneros MD [address] [place] [address] PCP - General Family Medicine 05/02/18 Saloni Kaminski Staffing AdministratorClinical Trials Nurse 05/19/23 Rosemarie Palmer [address] [place] [address] Nurse Practitioner Neurology 09/18/23 Milad Mcfarland Staffing AdministratorClinical Trials Nurse 10/01/24 documented as of this encounter
--- OUTSIDE RECORDS SUMMARY | 2024-12-03 12:20 | XMS_ITS | Encounter Summary ---
Author Organization [employer] Address [address] [facility] 7t [place] [address] Care Team Providers Care Curtains And Draperies Salesperson Name Role Phone Gabbie Cisneros MD Primary Care Provider [phone] Encounter Details Date Type Department Care Team (Late st Contact Info) Description 12/18/2023 Orders Only [facility] [address] [place] [address] Provider, MD Marina Social History Tobacco Use [...] Description 01/22/2025 10:15 AM EDT Office Visit [facility] CHC MED & PEDS [address] [place], [place] [phone] Gabbie Cisneros MD [address] [place] [address] documented as of this encounter Goals Goal [...] documented as of this encounter Care Teams Curtains And Draperies Salesperson Relationship Specialty Start Date End Date Gabbie Cisneros MD [address] [place] [address] PCP - General Family Medicine 05/02/18 Saloni Kaminski Field ContractorAnimal Taxonomist 05/19/23 Rosemarie Palmer [address] [place] [address] Nurse Practitioner Neurology 09/18/23 Milad Mcfarland Field ContractorAnimal Taxonomist 10/01/24 documented as of this encounter
--- OUTSIDE RECORDS SUMMARY | 2024-12-03 12:20 | XMS_ITS | Encounter Summary ---
Author Organization [employer] Address [address] [facility] [address] 7t [place] [address] Care Team Providers Care Icing Coater Name Role Phone Gabbie Cisneros MD Primary Care Provider [phone] Reason for Visit * Reason Onset Date Comments Appointment Request 06/12/2024 Encounter Details Date Type Department Care Team ([facility] Contact Info) Description 06/12/2024 Telephone [facility] CHC MED & PEDS [address] [place] [address] Gabbie Cisneros MD [address] [place] [address] Appointment Request Social History Tobacco Use Types [...] Description 01/22/2025 10:15 AM EDT Office Visit [facility] CHC MED & PEDS [address] [place] [address] Gabbie Cisneros MD [address] [place] [address] documented as of this encounter Goals Goal [...] documented as of this encounter Care Teams Icing Coater Relationship Specialty Start Date End Date Gabbie Cisneros MD [address] [place] [address] PCP - General Family Medicine 05/02/18 Saloni Kaminski Child Welfare ConsultantElectric Locomotive Firer/Fireman 05/19/23 Rosemarie Palmer [address] [place] [address] Nurse Practitioner Neurology 09/18/23 Milad Mcfarland Child Welfare ConsultantElectric Locomotive Firer/Fireman 10/01/24 documented as of this encounter
--- OUTSIDE RECORDS SUMMARY | 2024-12-03 12:20 | XMS_ITS | Encounter Summary ---
Author Organization [employer] Address [address] [facility] 7t [place] [address] Care Team Providers Care Dairy Husbandry Teacher Name Role Phone Gabbie Cinseros MD Primary Care Provider [phone] Encounter Details Date Type Department Care Team (Late st Contact Info) Description 09/29/2022 Abstract [facility] MEDICINE [address] [place] [address] Gabbie Cisneros MD [address] [place] [address] Social History Tobacco Use Types Packs/Day Years [...] Description 01/22/2025 10:15 AM EDT Office Visit [facility] CHC MED & PEDS [address] [place], [place] [phone] Gabbie Cisneros MD [address] [place] [address] documented as of this encounter Visit Diagnoses Not on filedocumented in this encounter Additional Health Concerns Assessment Noted Time PHQ-9 Depression Total Score: 15 023 9:30 AM EST documented as of this encounter Care Teams Dairy Husbandry Teacher Relationship Specialty Start Date End Date Gabbie Cisneros MD [address] [place] [address] PCP - General Family Medicine 05/02/18 Saloni Kaminski Oil Well Logging EngineerManufacturing Weaver 05/19/23 Rosemarie Palmer [address] [place] [address] Nurse Practitioner Neurology 09/18/23 Milad Mcfarland Oil Well Logging EngineerManufacturing Weaver 10/01/24 documented as of this encounter
--- OUTSIDE RECORDS SUMMARY | 2024-12-03 12:20 | XMS_ITS | Encounter Summary ---
Author Organization [email or web address] Address [address] [facility] [address] 7t [place] [address] Care Team Providers Care Unstacker Name Role Phone Gabbie Cisneros MD Primary Care Provider [phone] Reason for Visit * Reason Comments Med Refill Encounter Details Date Type Department Care Team ([facility] st Contact Info) Description 04/08/2024 Refill [facility] CHC MED & PEDS [address] [place] [address] Gabbie Cisneros MD [address] [place] [address] Social History Tobacco Use Types Packs/Day Years [...] 01/22/2025 10:15 AM EDT Office Visit [facility] MED & PEDS [address] [place] [address] Gabbie Cisneros MD [address] [place] [address] documented as of this encounter Goals Goal Patient Goal Type Associated Problems Recent Progress Patient-Stated? Author Patient will adhere to medication regimen General No Jerry Shelyb, PharmD Help patient manage asthma General No Jerry Shelby, PharmD Note: Reduce use of LUANNE to 2x/week documented as of this encounter Visit Diagnoses Not on filedocumented in this encounter Additional Health Concerns Assessment Noted Time PHQ-9 Depression Total Score: 10 024 9:42 AM EDT documented as of this encounter Care Teams Unstacker Relationship Specialty Start Date End Date Gabbie Cisneros MD [address] [place] [address] PCP - General Family Medicine 05/02/18 Saloni Kaminski Associate Merchandise PlannerLoss Claim Clerk 05/19/23 Rosemarie Palmer [address] [place] [address] Nurse Practitioner Neurology 09/18/23 Milad Mcfarland Associate Merchandise PlannerLoss Claim Clerk 10/01/24 documented as of this encounter
--- OUTSIDE RECORDS SUMMARY | 2024-12-03 12:20 | XMS_ITS | Encounter Summary ---
Author Organization [facility] Address [address] [place] [address] Care Team Providers Care Brush Cutter Name Role Phone Gabbie Cisneros Primary Care Provider Unavailabl e Encounter Details Date Type Department Care Team Description 06/29/2021 Orders Only Medical Records [address] [place] [address] Nathanael Morin MD [address] [place] [address] [place] [address] Social History Tobacco Use Types Packs/Day Years [...] Exposure Response Date Recorded In the last month, have you been in contact with someone who was confirmed or suspected to have Coronavirus / COVID-19? No / Unsure 06/23/2021 2:03 PM EDT documented as of this encounter Plan of Treatment Not on file documented as of this encounter Procedures Procedure Name Priority Date/Time Associated Diagnosis Comments OUTSIDE LAB Routine 06/29/2021 documented in this encounter Results * OUTSIDE LAB (06/29/2021) Nathanael Morin MD LAB documented in this encounter Visit Diagnoses Not on filedocumented in this encounter Care Teams Brush Cutter Relationship Specialty Start Date End Date Gabbie Cisneros PCP - General Family Practice 12/27/18 documented as of this encounter
--- OUTSIDE RECORDS SUMMARY | 2024-12-03 12:20 | XMS_ITS | Encounter Summary ---
Author Organization [facility] Address [address] [place] [address] Care Team Providers Care Stogy Maker Name Role Phone Zacarias Reed MD Primary Care Provider [phone] Joseph, Pcp Primary Care Provider Unavailsimon e Gabbie Cisneros Primary Care Provider Valentine eduardo Encounter Details Date Type Department Care Team Description 01/07/2018 Release of Information Medical Records [address] [place] [address] Abstract, Provider Social History Tobacco Use Types Packs/Day Years Used Date Smoking Tobacco: Former Cigarettes 0.3 8 Smokeless Tobacco: Never Alcohol Use Standard Drinks/Week [...] on filedocumented in this encounter Care Teams Stogy Maker Relationship Specialty Start Date End Date Zacarias Reed MD [address] [place] [address] PCP - General Internal Medicine 12/22/17 04/24/18 Community, Pcp [address] [place] [address] PCP - General Internal Medicine 04/25/18 12/26/18 Gabbie Cisneros [address] [place] [address] PCP - General Family Practice 12/27/18 documented as of this encounter
--- OUTSIDE RECORDS SUMMARY | 2024-12-03 12:20 | XMS_ITS | Encounter Summary ---
Author Organization [facility] Address [address] [place] [address] Care Team Providers Care Business Objects Developer Name Role Phone Gabbie Cisneros Primary Care Provider Unavailabl e Reason for Visit * Reason Comments E-prescribe Rx Request Encounter Details Date Type Department Care Team Description 03/30/2021 [facility] General Surgery [address] [place] [phone] Will Verduzco MD [address] [place] [address] [address] [place] [address] E-prescribe Rx Request Social History Tobacco Use [...] on filedocumented in this encounter Care Teams Business Objects Developer Relationship Specialty Start Date End Date Gabbie Cisneros PCP - General Family Practice 12/27/18 documented as of this encounter
--- OUTSIDE RECORDS SUMMARY | 2024-12-03 12:20 | XMS_ITS | Encounter Summary ---
Author Organization [facility] Address [address] [place] [address] Care Team Providers Care Nail Maker Name Role Phone Gabbie Cisneros MD Primary Care Provider [phone] Reason for Referral * Imaging (Routine) - Authorized Specialty Diagnoses / Procedures Referred By Contac t Referred To Contact Radiology Diagnoses Pelvic pain Procedures US Pelvis Non OB Complete w Transvaginal Lisa Wayne CNM [address] [place] [address] Phone: tel: fax: [facility] Referral ID Status Reason Start Date Expiration Date V isits Requested Visits Authorized [id number] Authorized 11/28/2024 11/28/2025 1 1 Reason for Visit * Imaging (Routine) - Authorized Specialty Diagnoses / Procedures Referred By Benignoac rio Referred To Contact Radiology Diagnoses Pelvic pain Procedures US Pelvis Non OB Complete w Transvaginal Lisa Wayne CNM [address] [place] [address] Phone: tel: fax: [facility] Referral ID Status Reason Start Date Expiration Date V isits Requested Visits Authorized [id number] Authorized 11/28/2024 11/28/2025 1 1 Encounter Details Date Type Department Care Team (Latest Contact Info) Description 12/01/2024 11:30 AM EDT - 12/01/2024 11:59 PM EDT Hospital Encounter [facility] Ultrasound [address] [place] [address] Pelvic pain Discharge Disposition: Home or Self Care Social History Tobacco Use Types Packs/Day Years Used Date Smoking Tobacco: Never Smokeless Tobacco: Former Comments Unknown Sex and Gender Information Value Date Recorded Sex Assigned at Female 07/16/2024 5:02 PM EST Legal Sex Female 4:57 PM EST Gender Identity Female 11/28/2024 10:28 AM EDT Sexual Orientation Straight 11/28/2024 10 :28 AM EDT documented as of this encounter Medications at Time of Discharge albuterol 2.5 mg /3 mL (0.083 %) nebulizer solution Take 1 Vial by nebulization every 6 hours as needed for Wheezing. 07/13/2020 albuterol HFA (PROAIR HFA ; PROVENTIL HFA ; VENTOLIN HFA) 90 mcg/actuation inhaler Inhale 2 Puffs into the lungs every 6 hours as needed for Cough, Wheezing or Shortness of Breath for up to 90 days. 10/26/2017 albuterol HFA (Ventolin HFA) 90 mcg/actuation inhaler Inhale 2 puffs by mouth every 6 (six) hours if needed for wheezing. 1 each 1 10/30/2024 12/30/19 25 wsxfb-P-nydraqvtng ase (BEANO ORAL) RYMIK-M-NQWILNOQQ DASE (BEANO) TAB : Take 1 tablet by mouth 4 times daily for 120 doses. 01/12/2021 amitriptyline (ELAVIL) 25 mg tablet Take 1 Tab by mouth at bedtime. 07/13/2020 aspirin 81 mg chewable tablet Take 81 mg by mouth daily. atorvastatin (LIPITOR) 10 mg tablet Take 10 mg by mouth daily. blood-glucose meter kit budesonide-formote roL (SYMBICORT) 160-4.5 mcg/actuation inhaler Inhale 2 Puffs into the lungs 2 times daily. 07/13/2020 buPROPion SR (WELLBUTRIN SR) 150 mg 12 hr tablet 150 mg 2 times daily. 11/20/2017 calcium carbonate-vitamin D (Oyster Shell Calcium-Vit D3) 500 mg-5 mcg (200 unit) per tablet TAKE 1 TABLET BY MOUTH DAILY 09/01/2022 cholecalciferol (VITAMIN D-3) 1,250 mcg (50,000 unit) capsule Take 1 Capsule by mouth once a week. 01/26/2023 cyclobenzaprine (FLEXERIL) 10 mg tablet Take 10 mg by mouth 3 times daily as needed. DULoxetine (Drizalma Sprinkle) 20 mg capsule, delayed rel sprinkle Take 20 mg by mouth 2 times daily. 07/13/2020 epinephrine (EPIPEN 2-YONI INJ) Inject into the muscle. ferrous sulfate 325 mg (65 mg elemental iron) tablet Take 1 tablet by mouth daily. 07/13/2020 fluocinolone 0.01 % cream Apply topically 2 times daily. fluticasone propion-salmeteroL (ADVAIR HFA) 115-21 mcg/actuation inhaler Inhale 2 Puffs into the lungs 2 times daily for 90 days. 10/13/2023 gabapentin (NEURONTIN) 100 mg capsule Take by mouth 3 times daily. 07/13/2020 glucose blood test strip 1 Strip by In Vitro route 2 times daily. hydrocortisone (ANUSOL-HC) 2.5 % rectal cream Apply 1 Inch topically 2 times daily. 07/13/2020 ketoconazole (NIZORAL) 2 % shampoo Apply topically daily as needed. ketotifen (ZADITOR) 0.025 % ophthalmic solution 1 Drop daily. loratadine (CLARITIN) 10 mg tablet Take 10 mg by mouth daily. magnesium oxide (MAG-OX) 400 mg (241.3 elemental magnesium) tablet Take 1 Tab by mouth daily. 07/13/2020 mometasone (ASMANEX) 110 mcg/ actuation (30) inhaler Inhale into the lungs. multivit-min/iron/ FA/vit K/lut (MULTIVITAMIN WOMEN 50 PLUS ORAL) TAKE 1 TABLET BY MOUTH DAILY 07/19/2023 ondansetron (ZOFRAN) 8 mg tablet Take 1 Tab by mouth every 8 hours as needed for Nausea. 04/10/2020 OneTouch UltraSoft Lancets 2 times daily. pantoprazole (PROTONIX) 40 mg EC tablet TAKE 1 TABLET BY MOUTH DAILY 90 tablet 3 09/04/2024 semaglutide (Ozempic) 0.25 mg or 0.5 mg (2 mg/3 mL) injection pen Inject 0.25 mg into the skin once a week. 01/10/2024 sucralfate (Carafate) 100 mg/mL suspensionIndicati ons:Acute gastrojejunal ulcer without hemorrhage or perforation,Bariat viky surgery status TAKE 10ml's BY MOUTH FOUR TIMES DAILY, shake WELL 1200 mL 3 09/11/2024 topiramate (TOPAMAX) 100 mg tablet TAKE 1 TABLET BY MOUTH DAILY 05/26/2023 triamcinolone (KENALOG) 0.5 % cream Apply topically 3 times daily. verapamil SR (CALAN-SR) 120 mg CR tablet Take 1 Tab by mouth at bedtime. 07/13/2020 vitamin A 3,000 mcg (10,000 unit) capsule TAKE ONE CAPSULE EVERY MORNING 06/23/2022 documented as of this encounter Discharge Disposition Disposition Code Departure Means Destination Home or Self Care documented in this encounter Plan of Treatment Upcoming Encounters Date Type Department Care Team (Late st Contact Info) Description 12/26/2024 11:15 AM EDT Office Visit Bariatric Surgery - [facility] [address] [place] [phone] Will Verduzco MD [address] [address] documented as of this encounter Procedures Procedure Name Priority Date/Time Associated Diagnosis Comments US PELVIS NON OB COMPLETE W TRANSVAGINAL Routine 12/01/2024 12:25 PM EDT Pelvic pain documented in this encounter Results * US Pelvis Non OB Complete w Transvaginal (12/01/2024 12:25 PM EDT) Anatomical Region Laterality Modality Body, Pelvis Ultrasound 12/02/2024 3:2 1 PM EDT Impressions 12/02/2024 3:27 PM EDT 1. ??No acute findings. 2. ??Bilateral ovarian cysts. ??These are probably functional in this patient of perimenopausal age. ?? -------- FINAL REPORT -------- Dictated By: Sawyer Cox Dictated Date: 12/02/2024 15:21 ET Assigned Physician: Sawyer Cox Reviewed and Electronically Signed By: Sawyer Cox Signed Date: 12/02/2024 15:27 ET Workstation ID: [id number] Transcribed By: Self Edit Transcribed Date: 12/02/2024 [...] Signed Date: 12/02/2024 15:27 ET Workstation ID: [id number] Transcribed By: Self Edit Transcribed Date: 12/02/2024 15:21 ET us Lisa LINDO IMG US PROCEDURES Final R esult documented in this encounter Visit Diagnoses Diagnosis Pelvic pain documented in this encounter Care Teams Nail Maker Relationship Specialty Start Date End Date Gabbie Cisneros MD [address] [place] [address] PCP - General 11/17/18 documented as of this encounter
--- OUTSIDE RECORDS SUMMARY | 2024-12-03 12:20 | XMS_ITS | Encounter Summary ---
Author Organization [facility] Address [address] [place] [address] Care Team Providers Care Bulk Picker Name Role Phone Zacarias Reed MD Primary Care Provider [phone] [facility], Pcp Primary Care Provider Unavailabl e Gabbie Cisneros Primary Care Provider Unavailabl e Reason for Referral * EXTERNAL (Routine) - Authorized/Booked Specialty Diagnoses / Procedures Referred By Kelly pate Referred To Contact Neurology Procedures REFERRAL TO NEUROLOGY Althea Max NP [address] [place] [address] [facility] [address], [address] [place] [address] Referral ID Status Reason Start Date Expiration Date V isits Requested Visits Authorized SEE NOTE Authorized/B ooked 01/16/2018 04/19/2018 1 1 Reason for Visit * Reason Onset Date Comments Prop Drawer Feedback 01/16/2018 neurology Encounter Details Date Type Department Care Team Description 01/16/2018 Telephone Adult Medicine [address] [address] Althea Max NP [address] [place] [id number] Prop Drawer Feedback (neurology) Social History Tobacco Use Types Packs/Day Years [...] encounter Miscellaneous Notes * Telephone Encounter - Althea Max NP - 01/16/2018 11:22 AM EDT Lizy. Thanks. * Telephone Encounter - Josseline Tolliver - 01/16/2018 11:10 AM EDT Althea, This patient used to see Dr Daugherty and [facility], but per their office they can not boothis patient again due to no show history. I have pended a new neurology order with no specific facility or provider listed. Please review and sign when able. Thank you, Josseline Referrals Coordinator [facility] documented in this encounter Plan of Treatment Not on file documented as of this encounter Visit Diagnoses Diagnosis Fibromyalgia- Primary Mylagia and myositis, unspecified documented in this encounter Care Teams Bulk Picker Relationship Specialty Start Date End Date Zacarias Reed MD [address] [place] [address] PCP - General Internal Medicine 12/22/17 04/24/18 [facility], Pcp [address] [place] [address] PCP - General Internal Medicine 04/25/18 12/26/18 Gabbie Cisneros [address] [place] [address] PCP - General Family Practice 12/27/18 documented as of this encounter
--- OUTSIDE RECORDS SUMMARY | 2024-12-03 12:20 | XMS_ITS | Encounter Summary ---
Author Organization [facility] Address [address] [place] [address] Care Team Providers Care Nurse Educator Name Role Phone Gabbie Cisneros Primary Care Provider Unavailabl e Reason for Visit * Reason Onset Date Comments Blood Bank Attendant Feedback 06/10/2021 Dr. Verduzco Encounter Details Date Type Department Care Team Description 06/10/2021 Telephone General Surgery [address] [place] [phone] Gabbie Cisneros Blood Bank Attendant Feedback (Dr. Verduzco) Social History Tobacco Use Types Packs/Day Years [...] * Telephone Encounter - Ina Carnes - 06/11/2021 8:03 AM EDT Insurance referral linked to appointment. * Telephone Encounter - Rocio Almonte - 06/10/2021 4:[address] Verduzco * Telephone Encounter - Ina Carnes - 06/10/2021 3:58 PM EDT I would need to know the provided the patient is seeing. * Telephone Encounter - Rocio Almonte - 06/10/2021 2:40 PM EDT External PCP patient requesting Specialist Consultation: Telephone encounter to remain open as a reminder until referral, if needed is received and sent to the referrals department to link to visit. When referral is received document: - Referral #: [id number] - Effective date: 01/12/21-01/12/22 - Number of visits: 6 Route to the referrals dept P [phone] If no referral required CLOSE encounter Patients insurance [place] / Plan: [place]ICA[place] P[place] / Product Type: MEDICAID [id number] Date of request: 06/10/2021 Appointment booked with: Who is calling to request the visit: Patients PCP (full name): PCP's phone #: PCP address: Priority of request: Routine - schedule for next available appointment; Priority - visit within 4-6weeks; Urgent - visit within a week; Emergency - visit today or tomorrow. Reason for/diagnosis for specialty consult request (cannot be a body part only): Telephone # of person calling in the consult: Is a referral needed for this patients insurance? Was caller informed that the referral # and effective dates must be called or faxed to us prior to the visit or visit will be cancelled? Was department fax # given to caller? Office records pertaining to reason for consult requested to be faxed including radiology, lab, pathology reports and office notes: documented in this encounter Plan of Treatment Not on file documented as of this encounter Visit Diagnoses Not on filedocumented in this encounter Care Teams Nurse Educator Relationship Specialty Start Date End Date Gabbie Cisneros PCP - General Family Practice 12/27/18 documented as of this encounter
--- OUTSIDE RECORDS SUMMARY | 2024-12-03 12:20 | XMS_ITS | Encounter Summary ---
Author Organization [facility] Address [address] [place] [address] Care Team Providers Care Water Conservationist Name Role Phone Amelia Gabbie Primary Care Provider Unavailabl e Reason for Visit * Reason Comments E-prescribe Rx Request Encounter Details Date Type Department Care Team Description 09/09/2020 Refill General Surgery - [place] 175 [facility] [address] [place] [phone] Will Verduzco MD [address] [place] [address] [address] [place] [address] E-prescribe Rx Request Social History Tobacco Use [...] or suspected to have Coronavirus / COVID-19? Unable to assess 08/26/2020 5:46 AM EST documented as of this encounter Miscellaneous Notes * Telephone Encounter - Lisa Aguilar M.A. - 09/10/2020 1:07 PM EST Pt needs a refill of cholecalciferol (vitaminD3) 1250mcg (50,000 unit) capsule documented in this encounter Plan of Treatment Not on file documented as of this encounter Visit Diagnoses Not on filedocumented in this encounter Care Teams Water Conservationist Relationship Specialty Start Date End Date Gabbie Cisneros PCP - General Family Practice 12/27/18 documented as of this encounter
--- OUTSIDE RECORDS SUMMARY | 2024-12-03 12:20 | XMS_ITS | Encounter Summary ---
Author Organization [employer] Address [address] [facility] 7t [place] [address] Care Team Providers Care Life Skills Coordinator Volunteer Name Role Phone Gabbie Cisneros MD Primary Care Provider [phone] Reason for Visit * Reason Comments Med Refill Encounter Details Date Type Department Care Team ([facility] Contact Info) Description 02/09/2024 Refill [facility] MED & PEDS [address] [place] [address] Rosalva Hidalgo MD [address] [place] [address] Lichen sclerosus Social History Tobacco Use Types [...] 01/22/2025 10:15 AM EDT Office Visit [facility] MED & PEDS [address] [place] [address] Gabbie Cisneros MD [address] [place] [address] documented as of this encounter Goals Goal [...] documented as of this encounter Care Teams Life Skills Coordinator Volunteer Relationship Specialty Start Date End Date Gabbie Cisneros MD [address] [place] [address] PCP - General Family Medicine 05/02/18 Saloni Kaminski Patient Access RegistrarManager Document 05/19/23 Rosemarie Palmer [address] [place] [address] Nurse Practitioner Neurology 09/18/23 Milad Mcfarland Patient Access RegistrarManager Document 2/11/25 documented as of this encounter
--- OUTSIDE RECORDS SUMMARY | 2024-12-03 12:20 | XMS_ITS | Encounter Summary ---
Author Organization [employer] Address [address] [facility] [place] [address] Care Team Providers Care Sourcing Coordinator Name Role Phone Gabbie Cisneros MD Primary Care Provider [phone] Reason for Visit * Reason Comments Med Refill Encounter Details Date Type Department Care Team ([facility] st Contact Info) Description 04/11/2024 Refill [facility] MED & PEDS [address] [place] [address] Gabbie Cisneros MD [address] [place] [address] Social History Tobacco Use Types Packs/Day Years [...] Description 01/22/2025 10:15 AM EDT Office Visit [facility] MED & PEDS [address] [place] [address] Gabbie Cisneros MD [address] [place] [address] documented as of this encounter Goals Goal [...] documented as of this encounter Care Teams Sourcing Coordinator Relationship Specialty Start Date End Date Gabbie Cisneros MD [address] [place] [address] PCP - General Family Medicine 05/02/18 Saloni Kaminski Food SpecialistRoll Over Press Operator 05/19/23 Rosemarie Palmer [address] [place] [address] Nurse Practitioner Neurology 09/18/23 Milad Mcfarland Food SpecialistRoll Over Press Operator 10/01/24 documented as of this encounter
--- OUTSIDE RECORDS SUMMARY | 2024-12-03 12:20 | XMS_ITS | Encounter Summary ---
Author Organization [facility] Address [address] [facility] [address], [place] [address] Care Team Providers Care Needle Process Felt Goods Supervisor Name Role Phone Gabbie Cisneros MD Primary Care Provider Reason for Visit * Reason Comments Med Refill Encounter Details Date Type Department Care Team (Late st Contact Info) Description 11/11/2022 Refill [facility] MED & PEDS [address] [place] [address] Gabbie Cisneros MD [address] [place] [address] Chronic obstructive pulmonary disease, unspecified COPD type [...] 01/22/2025 10:15 AM EDT Office Visit [facility] MED & PEDS [address] [place] [address] Gabbie Cisneros MD [address] [place] [address] documented as of this encounter Visit Diagnoses Diagnosis Chronic obstructive pulmonary disease, unspecified COPD type (CMS/HCC) documented in this encounter Additional Health Concerns Assessment Noted Time PHQ-9 Depression Total Score: 12 023 8:49 AM EST documented as of this encounter Care Teams Needle Process Felt Goods Supervisor Relationship Specialty Start Date End Date Gabbie Cisneros MD [address] [place] [address] PCP - General Family Medicine 05/02/18 Saloni Kaminski Entry Level Electrical EngineerPanel Beater 05/19/23 Rosemarie Palmer [address] [place] [address] Nurse Practitioner Neurology 09/18/23 Milad Mcfarland Entry Level Electrical EngineerPanel Beater 10/01/24 documented as of this encounter
--- OUTSIDE RECORDS SUMMARY | 2024-12-03 12:20 | XMS_ITS | Encounter Summary ---
Author Organization [facility] Address [address] [place] [address] Care Team Providers Care Manager Biostatistics Name Role Phone AmeliaTeddyGabbie Primary Care Provider Unavailabl e Reason for Visit * Reason Onset Date Comments Medication 01/14/2021 Encounter Details Date Type Department Care Team Description 01/14/2021 Telephone General Surgery - [place] [address] [facility] [address] [place] [address] Will Verduzco MD [address] [place] [address] [address] [place] [address] Medication Social History Tobacco Use Types Packs/Day [...] have Coronavirus / COVID-19? No / Unsure 01/12/2021 9:08 AM EDT documented as of this encounter Miscellaneous Notes * Telephone Encounter - Lisa Aguilar M.A. - 01/21/2021 11:40 AM EDT Called pt's pharmacy to see if they rec'd the prescriptions. They did receive two scripts, one for Beano and one for Benefiber. Pt's insurance does not cover either of these. Lab work shows a decreased vitamin D level. Pt needs to get an over the counter supplement. * Telephone Encounter - Rocio Almonte - 01/14/2021 12:09 PM EDT Patient called stating that [facility] has not received scripts for her Benefiber drink mix and Beano tabs prescribed on 01/12. She would also like a call with her lab results. documented in this encounter Plan of Treatment Not on file documented as of this encounter Visit Diagnoses Not on filedocumented in this encounter Care Teams Manager Biostatistics Relationship Specialty Start Date End Date Gabbie Cisneros PCP - General Family Practice 12/27/18 documented as of this encounter
--- OUTSIDE RECORDS SUMMARY | 2024-12-03 12:20 | XMS_ITS | Encounter Summary ---
Author Organization [employer] Address [address] [facility] [address] [place] [address] Care Team Providers Care Clinical Trial Leader Name Role Phone Gabbie Cisneros MD Primary Care Provider [phone] Reason for Visit * Reason Onset Date Comments Med Refill Appointment 2023 [facility] Encounter Details Date Type Department Care Team (Late st Contact Info) Description 2023 Refill [facility] MEDICINE [address] [place] [address] Andrew Lozano FNP Social History Tobacco Use [...] t he electric, gas, oil or water [employer] threatened to shut off services in your [...] [facility] MED & PEDS [address] [place] [address] Gabbie Cisneros MD [address] [place] [address] documented as of this encounter Goals Goal [...] documented as of this encounter Care Teams Clinical Trial Leader Relationship Specialty Start Date End Date Gabbie Cisneros MD [address] [place] [address] PCP - General Family Medicine 05/02/18 Saloni Kaminski Video Tape TransferrerManager Forensic 05/19/23 Rosemarie Palmer [address] [place] [address] Nurse Practitioner Neurology 09/18/23 Milad Mcfarland Video Tape TransferrerManager Forensic 10/01/24 documented as of this encounter
--- OUTSIDE RECORDS SUMMARY | 2024-12-03 12:21 | XMS_ITS | Encounter Summary ---
Author Organization [employer] Address [address] [facility] [address] [place] [address] Care Team Providers Care Threading Machine Setter Name Role Phone Gabbie Cisneros MD Primary Care Provider [phone] Reason for Visit * Reason Comments Med Refill Encounter Details Date Type Department Care Team ([facility] st Contact Info) Description 06/30/2023 Refill [facility] MED & PEDS [address] [place] [address] Andrew Lozano FNP Severe recurrent major depression [...] 10:15 AM EDT Office Visit [facility] MED & PEDS [address] [place] [address] Gabbie Cisneros MD [address] [place] [address] documented as of this encounter Goals Goal [...] documented as of this encounter Care Teams Threading Machine Setter Relationship Specialty Start Date End Date Gabbie Cisneros MD [address] [place] [address] PCP - General Family Medicine 05/02/18 Saloni Kaminski Process ManagerDecal Decorator 05/19/23 Rosemarie Palmer [address] [place] [address] Nurse Practitioner Neurology 09/18/23 Milad Mcfarland Process ManagerDecal Decorator 10/01/24 documented as of this encounter
--- OUTSIDE RECORDS SUMMARY | 2024-12-03 12:21 | XMS_ITS | Encounter Summary ---
Author Organization [employer] Address [address] [facility] 7t [place] [address] Care Team Providers Care Small Package And Bundle Sorter Clerk Name Role Phone Gabbie Cisneros MD Primary Care Provider [phone] Reason for Visit * Reason Comments Med Refill Encounter Details Date Type Department Care Team (Late st Contact Info) Description 10/13/[address] [facility] MEDICINE [address] [place], [place] [phone] Andrew Lozano FNP Severe recurrent major depression [...] 01/22/2025 10:15 AM EDT Office Visit 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) Major depressive disorder, recurrent episode, severe, specified as with psychotic behavior documented in this encounter Additional Health Concerns Assessment Noted Time PHQ-9 Depression Total Score: 15 09/29/ 023 9:30 AM EST documented as of this encounter Care Teams Small Package And Bundle Sorter Clerk Relationship Specialty Start Date End Date Gabbie Cisneros MD [address] [place] [address] PCP - General Family Medicine 05/02/18 Saloni Kaminski Special Education SuperintendentPlant Electrical Engineer 05/19/23 Rosemarie Palmer [address] [place] [address] Nurse Practitioner Neurology 09/18/23 Milad Mcfarland Special Education SuperintendentPlant Electrical Engineer 10/01/24 documented as of this encounter
--- OUTSIDE RECORDS SUMMARY | 2024-12-03 12:21 | XMS_ITS | Encounter Summary ---
Author Organization [facility] Address [address] [place] [address] Care Team Providers Care Evp Business Development Name Role Phone Gabbie Cisneros Primary Care Provider Unavailabl e Reason for Visit * Reason Onset Date Comments TEST RESULTS 02/05/2020 Encounter Details Date Type Department Care Team Description 02/05/2020 Telephone General Surgery - [place] [address] [facility] [address] [place] [address] Will Verduzco MD [address] [place] [address] [address] [place] [address] TEST RESULTS Social History Tobacco Use Types Packs/Day Years [...] encounter Miscellaneous Notes * Telephone Encounter - Dain Seay - 02/05/2020 8:08 AM EDT Patient had blood work done last week and would like to know her test results. Please contact patient. documented in this encounter Plan of Treatment Not on file documented as of this encounter Visit Diagnoses Not on filedocumented in this encounter Care Teams Evp Business Development Relationship Specialty Start Date End Date Gabbie Cisneros PCP - General Family Practice 12/27/18 documented as of this encounter
--- OUTSIDE RECORDS SUMMARY | 2024-12-03 12:21 | XMS_ITS | Encounter Summary ---
Author Organization [facility] Address [address] [place] [address] Care Team Providers Care Lacquer Polisher Name Role Phone Gabbie Cisneros Primary Care Provider Unavailabl e Reason for Visit * Reason Comments E-prescribe Rx Request Encounter Details Date Type Department Care Team Description 11/20/2021 [facility] General Surgery [address] [place] [phone] Will Verduzco MD [address] [place] [address] [address] [place] [address] E-prescribe Rx Request Social History Tobacco Use [...] as of this encounter Visit Diagnoses Diagnosis S/P gastric bypass Bariatric surgery status Acute marginal ulcer Acute gastrojejunal ulcer without mention of hemorrhage, perforation, or obstruction documented in this encounter Care Teams Lacquer Polisher Relationship Specialty Start Date End Date Gabbie Cisneros PCP - General Family Practice 12/27/18 documented as of this encounter
--- OUTSIDE RECORDS SUMMARY | 2024-12-03 12:21 | XMS_ITS | Encounter Summary ---
Author Organization [facility] Address [address] [place] [address] Care Team Providers Care Packing Room Worker Name Role Phone Amelia Gabbie Primary Care Provider Unavailabl e Reason for Visit * Reason Onset Date Comments refill request 07/20/2020 Vitamin A Encounter Details Date Type Department Care Team Description 07/20/2020 Telephone General Surgery - [place] [address] [facility] [address] [place] [address] Will Verduzco MD [address] [place] [address] [address] [place] [address] refill request (Vitamin A) Social History Tobacco Use Types Packs/Day Years [...] have Coronavirus / COVID-19? No / Unsure 07/13/2020 8:53 AM EST documented as of this encounter Miscellaneous Notes * Telephone Encounter - Lisa Aguilar M.A. - 07/22/2020 2:58 PM EST Pt returned my call and asked for Dr. Verduzco to send her prescription for Vitamin A to: [facility] * Telephone Encounter - Lisa Aguilar M.A. - 07/21/2020 2:51 PM EST I spoke with the pt and gave her the test results for her Vitamin A and Iron levels I told the pt that Dr. Verduzco sent a prescription to her pharmacy on record for vit A. Her pharmacy called and said they do not have vit A. Pt asked if we could send it to * Telephone Encounter - Lisa Aguilar M.A. - 07/20/2020 3:43 PM EST I spoke with the pt and told her a prescription for Vit A has been sent over to her pharmacy. * Telephone Encounter - Shannon Churchill - 07/20/2020 1:14 PM EST [facility] CALLED STATING THAT Dr Verduzco ordered Vitamin A 2,500 mg. He said they do not carry that. documented in this encounter Plan of Treatment Not on file documented as of this encounter Visit Diagnoses Not on filedocumented in this encounter Care Teams Packing Room Worker Relationship Specialty Start Date End Date Gabbie Cisneros PCP - General Family Practice 12/27/18 documented as of this encounter
--- OUTSIDE RECORDS SUMMARY | 2024-12-03 12:21 | XMS_ITS | Encounter Summary ---
Author Organization [facility] Address [address] [place] [address] Care Team Providers Care Custodial Foreman Name Role Phone Gabbie Cisneros Primary Care Provider Unavailabl e Encounter Details Date Type Department Care Team Description 04/23/2020 Refill Gastroenterology [facility] [address] [facility] [address] [place] [address] Nathanael Morin MD [address] [facility] [address] [place] [address] Social History Tobacco Use Types Packs/Day Years [...] have Coronavirus / COVID-19? No / Unsure 04/23/2020 10:02 AM EDT documented as of this encounter Plan of Treatment Not on file documented as of this encounter Visit Diagnoses Not on filedocumented in this encounter Care Teams Custodial Foreman Relationship Specialty Start Date End Date Gabbie Cisneros PCP - General Family Practice 12/27/18 documented as of this encounter
--- OUTSIDE RECORDS SUMMARY | 2024-12-03 12:21 | XMS_ITS | Encounter Summary ---
Author Organization [employer] [facility] Address [address] [place] [address] Care Team Providers Care Bit Setter Name Role Phone Joseph, Pcp Primary Care Provider Unavailabl e Gabbie Cisneros Primary Care Provider Unavailabl e Reason for Visit * Reason Comments E-prescribe Rx Request Encounter Details Date Type Department Care Team Description 12/15/2018 Refill General Surgery - [address] [place] [phone] Will Verduzco MD [address] [place] [address] [address] [place] [address] E-prescribe Rx Request Social History Tobacco Use [...] Telephone Encounter - Alba Tony M.A. - 12/17/2018 8:57 AM EDT Needs refill documented in this encounter Plan of Treatment Not on file documented as of this encounter Visit Diagnoses Not on filedocumented in this encounter Care Teams Bit Setter Relationship Specialty Start Date End Date Joseph, Pcp PCP - General Internal Medicine 04/25/18 12/26/18 Gabbie Cisneros PCP - General Family Practice 12/27/18 documented as of this encounter
--- OUTSIDE RECORDS SUMMARY | 2024-12-03 12:21 | XMS_ITS | Encounter Summary ---
Author Organization [facility] Address [address] [place] [address] Care Team Providers Care Buhr Dresser Name Role Phone Amelia Gabbie Primary Care Provider Unavailabl e Reason for Visit * Reason Onset Date Comments Error 09/29/2021 Encounter Details Date Type Department Care Team Description 09/29/2021 Telephone General Surgery - [place] [address] [address] Jazzy Santana PA-C [address] [phone] Error Social History Tobacco Use Types Packs/Day Years [...] have Coronavirus / COVID-19? No / Unsure 09/30/2021 7:33 AM EST documented as of this encounter Miscellaneous Notes * Telephone Encounter - Yareli Carreno - 09/29/2021 1:44 PM EST error documented in this encounter Plan of Treatment Not on file documented as of this encounter Visit Diagnoses Not on filedocumented in this encounter Care Teams Buhr Dresser Relationship Specialty Start Date End Date Gabbie Cisneros PCP - General Family Practice 12/27/18 documented as of this encounter
--- OUTSIDE RECORDS SUMMARY | 2024-12-03 12:21 | XMS_ITS | Encounter Summary ---
Author Organization [employer] Address [address] [facility] [address] [place] [address] Care Team Providers Care Mortgage Banker Name Role Phone Gabbie Cisneros MD Primary Care Provider [phone] Reason for Visit * Reason Onset Date Comments Nurse Triage 06/24/2024 Encounter Details Date Type Department Care Team ([facility] st Contact Info) Description 06/24/2024 Telephone [facility] [address] [place] [address] Gabbie Cisneros MD [address] [place] [address] Nurse Triage Social History Tobacco Use Types [...] 01/22/2025 10:15 AM EDT Office Visit [facility] [address] [place] [address] Gabbie Cisneros MD [address] [place] [address] documented as of this encounter Goals Goal [...] documented as of this encounter Care Teams Mortgage Banker Relationship Specialty Start Date End Date Gabbie Cisneros MD [address] [place] [id number] PCP - General Family Medicine 05/02/18 Saloni Kaminski Coating Machine Operator HelperHandle Lathe Operator 05/19/23 Rosemarie Palmer [address] [place] [address] Nurse Practitioner Neurology 09/18/23 Milad Mcfarland Coating Machine Operator HelperHandle Lathe Operator 10/01/24 documented as of this encounter
--- OUTSIDE RECORDS SUMMARY | 2024-12-03 12:21 | XMS_ITS | Continuity of Care Document ---
Author Organization [facility] In [facility] Address [address] [place] [address] Care Team Providers Care Grinder Machine Knife Setter Name Role Phone Vinicio Porter MD Unavailable [...] times every week 0.5 MG - Active PicnicHealthTouch Ultra2 kit test blood sugars twice a [...] Diagnoses Date Provider Providers Copied on Encounter [facility], [address] [place] [address], [phone] , [facility] No Information 0 Charlotte Mooney. [address] [address], [place], [id number], [place]. tel:[phone] [facility], [address] [place] [address], [phone] , [facility] No Information 7 Charlotte Mooney. [address] [facility] [address], [place], [id number], [place]. tel:[phone] OFFICE/OUTPA TIENT VISIT, [facility], [address] [place] [address], [phone] , [facility] lab result (chief complaint)hyp ertension (chief complaint)hyp erlipidemia (chief complaint) Body mass index (BMI) 37.0-37.9, adultEssential (primary) hypertensionHy perlipidemia, unspecifiedBen ign neoplasm of pituitary gland 7 Charlotte Mooney. [address] [facility] [address], [place], [id number], [place]. tel:[phone] [facility], [address] [place] [address], [phone] , [facility] No Information 7 Nurse Nurse. . [facility], [address] [place] [address], [phone] , [facility] No Information 7 Nurse Nurse. . OFFICE/OUTPA TIENT VISIT, [facility], [address] [place] [address], [phone] , [facility] Hearing loss (chief complaint)hyp ertension (chief complaint)hyp erlipidemia (chief complaint)sei zure (chief complaint) Body mass index (BMI) 37.0-37.9, adultDizziness Hearing lossEssential (primary) hypertensionHy perlipidemia, unspecifiedUns pecified convulsions [facility]. [address] [place] [address], [id number], [place]. tel:[phone], [id number] , [place] [facility] Dizziness [facility]. [address], [id number], [place]. tel:[phone] OFFICE/OUTPA TIENT VISIT, [facility], [address] [place] [address], [phone] , [facility] hemorroids (chief complaint)diz ziness (chief complaint)pit uitary tumor (chief complaint) Body mass index (BMI) 40.0-44.9, adultBenign neoplasm of pituitary glandDizziness Other hemorrhoids [facility]. [address], [id number], [place]. tel:[phone] OFFICE/OUTPA TIENT VISIT, [address], [phone] , [place] [facility] lab review (chief complaint) Body mass index (BMI) 37.0-37.9, adultBenign neoplasm of pituitary glandFibromyal giaBack painSleep apneaHearing lossOtalgiaDep ression [facility]. [address], [id number], [place]. tel:[phone], [id number] , [place] [facility] No Information 7 Nurse Nurse. . [facility], [address] [place] [address], [phone] , [place] [facility] No Information 7 Nurse Nurse. . OFFICE/OUTPA TIENT VISIT, EST [facility], [address] [place] [address], [phone] , [place] [facility] physical (chief complaint) Body mass index (BMI) 37.0-37.9, adultEncounter for exam of eyes and vision w/o abnormal findingsEncntr for exam of ears and hearing w oth abnormal findingsEncntr for general adult medical exam w/o abnormal findingsBack painSleep apneaBenign neoplasm of pituitary glandBenign neoplasm of pituitary gland 7 Charlotte Mooney. [address], [place], [place], [id number], [place]. tel:[phone] [facility], [address] [place] [address], [phone] , [place] [facility] No Information 7 Charlotte Mooney. [address], [place], [place], [id number], [place]. tel:[phone] [facility], [address] [place] [address], [phone] , [place] [facility] No Information 7 Charlotte Mooney. [address], [place], [place], [id number], [place]. tel:[phone] [facility], [address] [place] [address], [phone] , [place] [facility] No Information 7 Nurse Nurse. . [facility], [address] [place] [address], [phone] , [place] [facility] No Information 7 Charlotte Mooney. [address], [id number], [place]. tel:[phone] OFFICE/OUTPA TIENT VISIT, [address], [phone] , [facility] pituitary adenoma (chief complaint)fib romyalgia (chief complaint) Benign neoplasm of pituitary glandFibromyal giaUnspecified convulsionsEss ential (primary) hypertensionMa tran depressive disorder, single episode, unspecifiedHyp erlipidemia, unspecifiedPer romelia history of colonic polypsBody mass index (BMI) 37.0-37.9, adultEncounter for oth screening for malignant neoplasm of breastEncounte r for screening for malignant neoplasm of cervixNonscarr ing hair loss, unspecifiedOth er abnormal glucose Charlotterebecca Mooney. [address] [place] [address], [id number], [place]. tel:[phone] OFFICE/OUTPA TIENT VISIT, [facility], [address] [place] [address], [phone] , [place] [facility] chronic condition (chief complaint) Body mass index (BMI) 37.0-37.9, adultDysmenorr heaBenign neoplasm of pituitary glandEssential (primary) hypertensionUn specified convulsions Charlotte Mooney. [address] [place] [address], [id number], [place]. tel:[phone] OFFICE/OUTPA TIENT VISIT, [address], [id number] , [place] [facility] pap result (chief complaint) Encounter for screening for malignant neoplasm of cervixBody mass index (BMI) 37.0-37.9, adult Charlotte Mooney. [address] [place] [address], [id number], [place]. tel:[phone] OFFICE/OUTPA TIENT VISIT, [address], [phone] , [place] [facility] lab result (chief complaint) Body mass index (BMI) 37.0-37.9, adultDysmenorr hea May-1 0-201 7 Charlotte Lambd. [address] [facility] [address], [place], [id number], [place]. tel:[phone] [facility], [address] [place] [address], [phone] , [facility] Bradycardia, unspecified May-0 8-201 7 Charlotterebecca Lambd. [address] [facility] [address], [place], [id number], [place]. tel:[phone] [facility], [address] [place] [address], [phone] , [facility] No Information May-0 5-201 7 Nurse Nurse. . [facility], [address] [place] [address], [phone] , [facility] No Information May-0 5-201 7 Nurse Nurse. . [facility], [address] [place] [address], [phone] , [facility] No Information December-0 4-201 7 Charlotterebecca Lambd. [address] [facility] [address], [place], [id number], [place]. tel:[phone] OFFICE/OUTPA TIENT VISIT, [facility], [address] [place] [address], [phone] , [place] [facility] ER followup (chief complaint) Body mass index (BMI) 37.0-37.9, adultVaginitis Encounter for screening for malignant neoplasm of cervixEncounte r for screening for malignant neoplasm of cervixRash December-0 4-201 7 Charlotte Lambd. [address] [facility] [address], [place], [id number], [place]. tel:[phone] OFFICE/OUTPA TIENT VISIT, [facility], [address] [place] [address], [phone] , [place] [facility] uri (chief complaint) Body mass index (BMI) 37.0-37.9, adultAcute respiratory infection Nov-2 5- 7 Charlotte Mooney. [address] [facility] [address], [id number], [place]. tel:[phone] OFFICE/OUTPA TIENT VISIT, [facility], [address] [place] [address], [phone] , [place] [facility] MRI results (chief complaint) FibromyalgiaBe nign neoplasm of pituitary glandAbnormal glucoseEssenti al (primary) hypertensionMa tran depressive disorder, single episode, unspecifiedPer romelia history of colonic polypsUnspecif ied convulsionsBod y mass index (BMI) 37.0-37.9, adultEncounter for oth screening for malignant neoplasm of breast Nov-1 0- 7 Charlotte Mooney. [address] [facility] [address], [id number], [place]. tel:[phone] OFFICE/OUTPA TIENT VISIT, [facility], [address] [place] [address], [phone] , [place] [facility] pituitary tumor (chief complaint) Benign neoplasm of pituitary glandFibromyal giaDepressionP ain, unspecifiedVit freeman D deficiency Mar-1 0- 7 Charlotte Mooney. [address], [id number], [place]. tel:[phone] [facility], [address] [place] [address], [phone] , [place] [facility] No Information Mar-0 3-201 7 Nurse Nurse. . [facility], [address] [place] [address], [phone] , [place] [facility] No Information Mar-0 2-201 7 Nurse Nurse. . OFFICE/OUTPA TIENT VISIT, [facility], [address] [place] [address], [phone] , [place] [facility] Neck pain (chief complaint) Pain, unspecifiedFib romyalgiaBenig n neoplasm of pituitary glandBradycard iaBody mass index (BMI) 36.0-36.9, adult 7 hCarlotte Mooney. [address] [facility] [address], [place], [id number], [place]. tel:[phone] OFFICE/OUTPA TIENT VISIT, [facility], [address] [place] [address], [phone] , [facility] lab result (chief complaint)Nec k pain (chief complaint) Benign neoplasm of pituitary glandEssential (primary) hypertensionUn specified convulsionsHyp erlipidemiaDep ressionMigrain eAbnormal glucoseEncount er for oth screening for malignant neoplasm of breastPain, unspecified 7 Charlotte Mooney. [address] [facility] [address], [place], [id number], [place]. tel:[phone] [facility], [address] [place] [address], [phone] , [place] [facility] No Information 6 Charlotte Mooney. [address] [facility] [address], [id number], [place]. tel:[phone] OFFICE/OUTPA TIENT VISIT, [facility], [address] [place] [address], [phone] , [place] [facility] bacterial vaginits (chief complaint) Body mass index (BMI) 37.0-37.9, adultVaginitis Benign neoplasm of pituitary glandEncntr for bankruptcy attorney exam (general) (routine) w/o abn findings 6 Charlotte Mooney. [address] [facility] [address], [place], [id number], [place]. tel:[phone] [facility], [address] [place] [address], [phone] , [facility] No Information 6 No Information OFFICE/OUTPA TIENT VISIT, [facility], [address] [place] [address], [phone] , [facility] Follow Up of coldness and pain in legs (chief complaint)Fol low Up of bradycardia (chief complaint) Radiculopathy, lumbar regionParesthe silvio of skinPain in unspecified kneeBradycardi a 6 No Information OFFICE/OUTPA TIENT VISIT, [facility], [address] [place] [address], [phone] , [facility] lab result (chief complaint) FibromyalgiaUn specified convulsionsEss ential (primary) hypertensionMa tran depressive disorder, single episode, unspecifiedBen ign neoplasm of pituitary glandPersonal history of colonic polypsPain in unspecified kneeBody mass index (BMI) 39.0-39.9, adult Oct- 6- 6 Charlotte Steinbergmad. [address] [facility] [address], [place], [id number], [place]. tel:[phone] [facility], [address] [place] [address], [phone] , [facility] No Information 6 Nurse Nurse. . [facility], [address] [place] [address], [phone] , [facility] No Information - 6 Nurse Nurse. . [facility], [address] [place] [address], [phone] , [facility] No Information - 6 Charlotte Steinbergmad. [address] [facility] [address], [place], [place], [id number], [place]. tel:[phone] OFFICE/OUTPA TIENT VISIT, [facility], [address] [place] [address], [phone] , [facility] hypertension (chief complaint) Abnormal glucoseFibromy algiaEssential (primary) hypertensionUn specified convulsionsMaj or depressive disorder, single episode, unspecifiedBen ign neoplasm of pituitary glandHyperlipi demiaPersonal history of colonic polypsBody mass index (BMI) 39.0-39.9, adultEncounter for screening for malignant neoplasm of cervixEncounte r for oth screening for malignant neoplasm of breastPain in unspecified kneeEncntr for bankruptcy attorney exam (general) (routine) w/o abn findings 6 Charlotte Mooney. [address] [facility] [address], [place], [place], [id number], [place]. tel:[phone] [facility], [address] [place] [address], [phone] , [facility] No Information Apr- 6 Nurse Nurse. . [facility], [address] [place] [address], [phone] , [facility] No Information 6 Nurse Nurse. . OFFICE/OUTPA TIENT VISIT, [address], [phone] , [facility] Body mass index (BMI) 39.0-39.9, adultMigraineS eizureFibromya lgiaEssential (primary) hypertensionOb esityOvarian cystDepression Abnormal glucoseEncount er for screening for malignant neoplasm of cervixBradycar man 6 Charlotte Mooney. [address] [facility] [address], [place], [place], [id number], [place]. tel:[phone] Family History Family Member Type Diagnosis Age At Onset Brother Problem (finding) coronary arterioscleros is Problem (finding) Family history of cance r of colon Brother Problem (finding) cancer of colon Brother Problem (finding) aneurysm Problem (finding) Family history of Cance r, skin Mother Problem (finding) osteoporosis Payers Payer name Insurance type Covered alliance party ID Authoriza tion(s) No Information Social History [...] on due Goal Influenza vaccine. Due on Pa due Goal Lifestyle education regardin g diet [...] on due Goal Influenza vaccine. Due on Pa due Goal Tdap. Due on due Goal [...] 16 due Goal Influenza vaccine. Due on Oc due Goal Td vaccine. Due on 16 [...] (related to Dizziness) ordered Referral Referred To: [facility] [address] [place], [address] [phone] Ordered: Referrals: Neurology. [facility]. Evaluate and treat ordered Referral Ordered: Referrals: Neurology. Evaluate and treat ordered Referral Ordered: Surgery (related to Other hemorrhoids) ordered Referral Ordered: Nephrology (related to Dizziness) ordered Referral Referred To: Vlad Rojas MD [address] [place] [address] [address] [place], [address] [phone] Ordered: Referrals: Nephrology. Vlad Rojas MD. Evaluate and treat ordered Referral Referred To: Abdifatah Faith MD [address] [place] [address], [address] [place], [place], [id number] [phone] Ordered: Referrals: Surgery. Abdifatah Faith MD. Evaluate and treat ordered Referral Ordered: Referrals: Nephrology. Evaluate and treat ordered Referral Ordered: Referrals: Surgery. Evaluate and treat ordered Referral Ordered: Psychiatry (related to Depression) ordered Referral Referred To: [facility] [address] [facility] [address] [place], [address] [phone] Ordered: Referrals: Psychiatry. [facility]. Evaluate and treat ordered Referral [...] to Back pain) ordered Referral Referred To: [facility] [address] [place], [place], [phone] Ordered: Referrals: Physical Medicine and Rehabilitation. [facility]. Evaluate and treat ordered Referral Referred To: Manny Bryant [address] [place], [address] [phone] Ordered: Referrals: Pulmonology. Manny Bryant. Evaluate and treat ordered Referral Referred To: [facility] [address] [place], [place], [phone] Ordered: Referrals: Otolaryngology. [facility]. Evaluate and treat ordered Referral Referred To: Seb Freedman [address] [place], [place], [id number] [phone] Ordered: Referrals: Otolaryngology. Seb Freedman. Evaluate and treat ordered Referral Ordered: Referrals: Otolaryngology. Evaluate and treat ordered Referral Ordered: Referrals: Pulmonology. Evaluate and treat ordered Referral Ordered: Neurology (related to Benign neoplasm of pituitary gland) ordered Referral Ordered: Dermatology (related to Nonscarring hair loss, unspecified) ordered Referral Ordered: Referrals: Dermatology. Evaluate and treat ordered Referral Ordered: Mammo Screen Bilateral 2 View Darinel ordered Referral Ordered: Gynecology (related to Dysmenorrhea) ordered Referral Ordered: Neurology (related to Unspecified convulsions) ordered Referral Referred To: [facility] [address] [place], [address] [phone] Ordered: Referrals: Obstetrics and Gynecology. [facility]. Evaluate and treat ordered Referral Referred To: [facility] [address] [place], [phone] Ordered: Referrals: Neurology. [facility] [address] Evaluate and treat ordered Referral Ordered: Referrals: Gynecology. Evaluate and treat ordered Referral Referred To: Benjie Logan MD [address], [address] [place], [address] [phone] Ordered: Referrals: Cardiology. Benjie Logan MD. Follow-up and Treat ordered Referral Ordered: Dermatology (related to Rash) ordered Referral Referred To: [facility] [address] [place], [phone] Ordered: Referrals: Dermatology. [facility]. Evaluate and treat ordered Referral Ordered: Referrals: Dermatology Appointment date/timeframe: Today ordered Referral Ordered: Gastroenterology (related to Personal history of colonic polyps) ordered Referral Ordered: Rheumatology (related to Fibromyalgia) ordered Referral Ordered: Referrals: Gastroenterology. Evaluate and treat ordered Referral Ordered: MAMMOGRAM, SCREENING ordered Referral Ordered: Pain Medicine (related to Fibromyalgia) ordered Referral Referred To: [facility] [address] [place], [address] [phone] Ordered: Referrals: Pain Medicine. [facility]. Evaluate and treat ordered Referral Ordered: MRI NECK SPINE W/O DYE ordered Referral Ordered: Referrals: Pain Medicine. Evaluate and treat ordered Referral Ordered: X-RAY EXAM OF NECK SPINE, CERVICAL 4 OR 5 VIEWS ordered Referral Ordered: Referrals: Physical Medicine and Rehabilitation. Evaluate and treat ordered Referral Referred To: [facility] [address] [facility] [place], [phone] Ordered: Referrals: Physical Medicine and Rehabilitation. [facility]. Evaluate and treat ordered Referral Ordered: Gastroenterology (related to Personal history of colonic polyps) ordered Referral Ordered: John Lerma MD (related to Fibromyalgia) ordered Referral Ordered: Rheumatology (related to Fibromyalgia) ordered Referral Ordered: Neurology (related to Benign neoplasm of pituitary gland) ordered Referral Referred To: John Lerma MD [address] [place], [address] [phone] Ordered: Referrals: Rheumatology. John Lerma MD. Evaluate and treat ordered Referral Referred To: [facility] [address] [place], [address] [phone] Ordered: Referrals: Neurology. [facility]. Evaluate and treat ordered Referral Referred To: [facility] [address] [facility] [address] [place], [address] [phone] Ordered: Referrals: Gastroenterology. [facility]. Evaluate and treat ordered Referral Ordered: X-RAY EXAM OF KNEE, 1 OR 2 VIEWS Bilateral ordered Referral Ordered: Referrals: Neurology ordered Referral Ordered: Referrals: Rheumatology. Evaluate and treat ordered Referral Referred To: John Lerma MD [address] [place], [address] [phone] Ordered: Referrals: John Lerma MD. Evaluate and treat ordered Referral Ordered: Referrals: Gastroenterology ordered Referral Ordered: MRI BRAIN W/O DYE ordered Referral Ordered: Cardiology (related to Bradycardia) ordered Referral Referred To: Benjie Logan MD [address] [facility] [place], [address] [phone] Ordered: Referrals: Cardiology. Benjei Logan MD. Evaluate and treat ordered Referral Referred To: [facility] [address] [place], [address] [phone] Ordered: Referrals: Diagnostic Radiology. [facility]. Diagnostic testing ordered Referral Ordered: US EXAM, PELVIC, COMPLETE ordered Referral Ordered: Referrals: Cardiology. Evaluate and treat ordered Nutrition Recommendation Feeding [...] low calorie diet Related to Hyperlipidemia, unspecified Giving encouragement to exercise Related to [...] see HPI Related to Heari ng loss Lifestyle education regarding di et Related to Body mass index (BMI) 37.0-37.9, adult Giving encouragement to exercise Related to Body mass index (BMI) 37.0-37.9, adult she has been referre d to neurology, she didnot go as it was in [place] and she has car problem Related to Benign neoplasm of pituitary gland Lifestyle education regarding di et Related to Body mass index (BMI) 40.0-44.9, adult Giving encouragement to exercise Related to Body mass index (BMI) 40.0-44.9, adult printed copy of refe rral ENT given to patient. Related to Hearing loss Mild ear pain, no in fection, advised to take ibuprofen. Related to Otalgia printed copy of pulm onary referral given [...] low calorie diet Related to Hyperlipidemia, unspecified Referred to neurolog y again, she was not able to see the neurology and the last referral . Related to Unspecified convulsions pt was seen by rheumatology Rela kallie [...] pt started on meloxicam Related to Dysmenorrhea Lifestyle education regarding di et Related to [...] see above. Related to Uns pecified convulsions MRI brain discussed with patient, it didnot show pituitary lesion but ICA lesion, she had appoint with neurology last week but she was late for her appt. She has another appt scheduled on december 23 as per patient. Related to Benign neoplasm of pituitary gland Lifestyle modificati on discussed along with low calorie diet and regular exercise. Related to Abnormal glucose Advised low salt tLifestyle modification discussed.Keep log of blood pressure.Exercise and low caloried diet discussed. Related to Essential (primary) hypertension Stable, continue to follow. Non-homicidal and non-suicidal Related to Major depressive disorder, single episode, unspecified Lifestyle education regarding di et Related to [...] Pt goes to rheumatology Related to Fibromyalgia Pt is going to MRI b rain today and has appt with neurology next week. Related to Benign neoplasm of pituitary gland She was recently edison luated by cardiology and she is asymptomatic, continue to follow Related to Bradycardia Please see HPI All q uestion answered [...] to Major depressive disorder, single episode, unspecified pt referred to neurology Related to Unspecified convulsions Advised low salt tLifestyle modification discussed.Keep log of blood pressure.Exercise and low caloried diet discussed. Related to Essential (primary) hypertension started on atorvasta tin 10mg po daily [...] US pelvis Related to Ovari an cyst Lifestyle modificati on discussed along with low calorie diet and regular exercise. Related to Obesity lisioprol 5mg po roddy ly Advised low salt dietLifestyle modification discussed.Keep log of blood pressure.Exercise and low caloried diet discussed. Related to Essential (primary) hypertension she was started on g abapentin 300mg po bid. Related to Fibromyalgia She was referred to neurology Re lated to Seizure pt was seen by neuro [facility] [place] Related to Migraine Exercise promotion: stretching R elated to Body mass index (BMI) 39.0-39.9, adult Assessments Type Assessment Date No Information Patient Care Teams Name Effective Dates (start - stop) Status Members No Information
--- OUTSIDE RECORDS SUMMARY | 2024-12-03 12:21 | XMS_ITS | Encounter Summary ---
Author Organization Formerly [facility] Address [address] [place] [address] Care Team Providers Care Biblical Languages Professor Name Role Phone AmeliaGabbie Primary Care Provider Unavailabl e Reason for Visit * Reason Comments E-prescribe Rx Request Encounter Details Date Type Department Care Team Description 12/31/2019 Refill General Surgery [facility] [address] [place] [address] Will Verduzco MD [address] [place] [address] [address] [place] [address] E-prescribe Rx Request Social History Tobacco Use [...] encounter Miscellaneous Notes * Telephone Encounter - Katharine Martinez - 01/27/2020 1:38 PM EDT Pt pharmacy called to renew the iron and Vitamin D. Should the pts levels be checked before the scripts are filled? * Telephone Encounter - Will Verduzco MD - 12/31/2019 4:30 PM EDT I will repeat the iron and vitamin D levels before renewing prescription. documented in this encounter Plan of Treatment Not on file documented as of this encounter Visit Diagnoses Not on filedocumented in this encounter Care Teams Biblical Languages Professor Relationship Specialty Start Date End Date Gabbie Cisneros PCP - General Family Practice 12/27/18 documented as of this encounter
--- OUTSIDE RECORDS SUMMARY | 2024-12-03 12:21 | XMS_ITS | Encounter Summary ---
Author Organization [facility] Address [address] [place] [address] Care Team Providers Care Wellness Coordinator Name Role Phone Gabbie Cisneros Primary Care Provider Unavailabl e Encounter Details Date Type Department Care Team Description 02/24/2020 Tail Puller Report Medical Records [address] [place] [address] Gabbie Cisneros Social History Tobacco Use Types Packs/Day Years [...] on filedocumented in this encounter Care Teams Wellness Coordinator Relationship Specialty Start Date End Date Gabbie Cisneros PCP - General Family Practice 12/27/18 documented as of this encounter
--- OUTSIDE RECORDS SUMMARY | 2024-12-03 12:21 | XMS_ITS | Encounter Summary ---
Author Organization [employer] Address [address] [place] [address] Care Team Providers Care Equipment Maintenance Tech Name Role Phone Gabbie Cisneros MD Primary Care Provider Reason for Visit * Reason Onset Date Comments Appointment Request 06/24/2024 Encounter Details Date Type Department Care Team ([facility] Contact Info) Description 06/24/2024 Telephone [facility] [address] [place] [address] Gabbie Cisneros MD [address] [place] [address] Appointment Request Social History Tobacco Use Types [...] [facility] [address] [place] [address] Gabbie Cisneros MD [address] [place] [address] documented as of this encounter Goals Goal [...] documented as of this encounter Care Teams Equipment Maintenance Tech Relationship Specialty Start Date End Date Gabbie Cisneros MD [address] [place] [address] PCP - General Family Medicine 05/02/18 Saloni Kaminski Manager Of PmoDirector Card 05/19/23 Rosemarie Palmer [address] [place] [address] Nurse Practitioner Neurology 09/18/23 Milad Mcfarland Manager Of PmoDirector Card 10/01/24 documented as of this encounter
--- OUTSIDE RECORDS SUMMARY | 2024-12-03 12:21 | XMS_ITS | Clinical Summary ---
Author Organization [employer] Address [address] [place] [address] Care Team Providers Care Leather Colorer Name Role Phone Gabbie Cisneros MD Primary Care Provider [phone] Allergies Active Allergy Reactions Criticality Noted Date [...] organization. beta carotene (vitamin A) 3 MG (17676 UT) capsule Take 1 capsule by mouth [...] 23 Active cholecalciferol (Vitamin D-3) 1.25 MG (24819 UT) capsule Take 1 capsule by mouth [...] 90 tablet 1 11/20/19 25 Active fluocinolone ([place]) 0.01 % external oilIndications:Be nign neoplasm of [...] mL 4 05/14/20 24 2024 Discontinued fluocinolone ([place]) 0.01 % external oilIndications:Be nign neoplasm of [...] read books or the bible or attend amish is very distressing to her. Reports lifetime [...] read books or the bible or attend amish is very distressing to her. Reports lifetime [...] will be under care of Psychiatrist in [place]. Mood is depressed, and pt requests resumption [...] She will F/U with new providers in [place]. For any issues or concerns, contact [facility]. All her questions were answered and [...] Do Follow up for counseling, go to [facility] and/or call for appointment. 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 [address] Gabbie Cisneros MD 11/01/2024 Population Health Risk Score [facility] (C3) Department [address] [place] [phone] Provider, Population Health Generic 10/24/2024 Refill [facility] [address] ANETTE Acharya13 Gabbie Cisneros MD 10/23/2024 Refill [facility] [address] [facility] [place] [address] Rosalva Hidalgo MD Unspecified asthma with (acute) exacerbation 10/17/2024 Refill [facility] [address] [facility] [place] [address] Rosalva Hidalgo MD Androgenetic alopecia 10/17/2024 Refill [facility] [address] [place] [address] Gabbie Cisneros MD Hypercholesterolemia 10/10/2024 Telephone [facility] [address] [facility] [place] [address] Gabbie Cisneros MD No Show 10/09/2024 Orders Only GENERIC EXTERNAL DATA DEPARTMENT Provider, Generic External Data 10/08/2024 11:15 AM EST Office Visit [facility] [address] [facility] [place] [place] [address] Rosalva Hidalgo MD Erythema nodosum (Primary Dx); Androgenetic alopecia; Androgenetic alopecia; Varicose veins of left leg with edema 10/08/2024 Travel 10/04/2024 Travel 10/01/2024 Telephone [facility] [address] [facility] [place] [address] Gabbie Cisneros MD Care Coordination (ICP CP) 09/28/2024 Refill [facility] [address] [facility] [place] [address] Gabbie Cisneros MD Chronic obstructive pulmonary disease, unspecified COPD type (CMS/HCC) 09/27/2024 Telephone [facility] [address] [place] [address] Gabbie Cisneros MD Referral 09/26/2024 Patient Outreach [facility] [address] [facility] [place] [address] Gabbie Cisneros MD Pre-visit Planning (SDOH screening negative and tobacco screening negative) 09/18/2024 Travel 09/10/2024 Refill [facility] [address] [place] [address] Nora Redmond MD Severe recurrent major depression [...] 10:15 AM EDT Office Visit [facility] [address] [place] [address] Gabbie Cisneros MD [address] [place] [address] Health Maintenance Due Date Last Done Comments [...] will adhere to medication regimen General No RamirezlogGarett rivasis, PharmD Help patient manage asthma General No Ramirezlogevelyn, Jerry, PharmD Note: Reduce use of LUANNE to 2x/week Procedures Procedure Name Priority Date/Time Associated Diagnosis Comments US PELVIS TRANSVAGINAL Routine 12/01/2024 Pelvic pain US PELVIS COMPLETE Urgent 12/01/2024 Pelvic pain CHLAMYDIA/N. GONORRHOEAE RNA, TMA, UROGENITAL Routine 11/28/2024 [...] complication, without long-term current use of insulin ([facility]) LIPID PANEL, STANDARD Routine 08/07/2023 10:53 AM EST Type 2 diabetes mellitus without complication, without long-term current use of insulin ([facility]) from Last 3 Months or Most Recently Relevant to Health Maintenance Results * Us Pelvis complete (12/01/2024) Anatomical Region Laterality Modality Pelvis [facility] US PROCEDURES Final R esult * US Pelvis Transvaginal (12/01/2024) Anatomical Region Laterality Modality Pelvis Ultrasound [facility] Rosana [facility] US PROCEDURES Final R esult * Bacterial Vaginosis Panel (11/28/2024 9:22 AM EDT) TRICHOMONAS VAGINALIS DETECTION BY PCR NOT DETECTED Not Detect [facility] BACTERIAL VAGINOSIS DETECTION BY PCR NEGATIVE Negative [facility] Comment:The BV organism targ ets [...] DETECTION BY PCR NOT DETECTED Not Detect [facility] Nelly glab krusei PCR NOT DETECTED Not Detect [facility] Swab Vaginal structure / Unknown 11/28/2024 9:22 AM EDT 11/28/2024 2:32 PM EDT Ti Castillo CN LAB MICROBIOLOGY - GENERA L ORDERABLES Final Result [facility] [address] [place] [address] [phone] * Chlamydia/N. Gonorrhoeae RNA, TMA, Urogenitial (11/28/2024 9:22 AM EDT) CT PCR NOT DETECTED Not Detect. [facility] Comment:A not detected test result [...] psychologicalconsequences. NG PCR NOT DETECTED Not Detect. [facility] Comment:A not detected test result [...] AM EDT 11/28/2024 2:34 PM EDT Narrative [facility] - 11/28/2024 4:11 PM EDT Vaginal Ti LINDO LAB MICROBIOLOGY - GENERA L ORDERABLES Final Result [facility] [address] [place] [address] [phone] * (ABNORMAL) CBC auto differential (10/09/2024 10:18 AM EST) White Blood Count 3.0(L) 4.8 - 10.8 X10*3/uL [facility] Red Blood Count 4.36 4.20 - 5.50 X10*6/uL [facility] Hemoglobin 13.8 12.0 - 16.0 g/dl [facility] Hematocrit 40.0 37.0 - 47.0 % [facility] Mean Corpuscular Volume 91.7 80.0 - 98.0 fL [facility] Mean Corpuscular Hemoglobin 31.7 27.0 - 33.0 pg [facility] Mean Corpuscular HGB Conc 34.5 31.0 - 35.0 g/dl [facility] Red Cell Distribution Width 12.6 11.0 - 16.0 % [facility] Platelet Count 264 160 - 400 X10*3/uL [facility] Mean Platelet Volume 10.0 9.4 - 12.3 fL [facility] Neutrophils Percent Auto 53.0 45 - 73 % [facility] Imm Gran Pct Auto 0.3 0.0 - 0.4 % [facility] Lymphocytes Percent Auto 33.8 20 - 40 % [facility] Monocytes Percent Auto 8.9 2 - 11 % [facility] Eosinophils Percent Auto 3.0 0 - 4 % [facility] Basophils Percent Auto 1.0 0 - 2 % [facility] NRBC Pct Auto 0.0 0.0 - 0.2 /100WBC [facility] Neutrophils Absolute Auto 1.6(L) 2.0 - 8.3 x10*3/uL [facility] Imm Gran Abs Auto 0.01 0.00 - 0.03 X10*3/uL [facility] Lymphocytes Absolute Auto 1.0(L) 1.2 - 4.9 X10*3/uL [facility] Monocytes Absolute Auto 0.3 0.1 - 1.2 X10*3/uL [facility] Eosinophils Absolute Auto 0.1 0.0 - 0.4 X10*3/uL [facility] Basophils Absolute Auto 0.0 0.0 - 0.2 X10*3/uL [facility] NRBC Abs Auto 0.000 0.0 - 0.012 X10*3/uL [facility] 10/09/2024 10:1 8 AM EST 10/09/2024 10:18 AM EST us Generic External Data Provider LAB BLOOD ORDERAB LES Final Result Performing Organization Address City/[facility]/ZIP Co de Phone Number [facility] [address] [place] [phone] * Sed Rate by Modified Grover (10/09/2024 10:18 AM EST) Erythrocyte Sedimentation Rate 5 0 - 20 MM/HR [facility] Comment:Patients with polycy themia and many hemoglobin abnormalitiesmay have depressed sed rates whereas patients with anemiamay have elevated sed rates. 10/09/2024 10:1 8 AM EST 10/09/2024 10:18 AM EST us Generic External Data Provider LAB BLOOD ORDERAB LES Final Result Performing Organization Address [facility] [place]/[facility]/ZIP Co de Phone Number [facility] [address] [place] [phone] * C-reactive Protein (10/09/2024 10:18 AM EST) C Reactive Protein <0.10 < or = 0.50 mg/dL [facility] 10/09/2024 10:1 8 AM EST 10/09/2024 10:18 AM EST us Generic External Data Provider LAB BLOOD ORDERAB LES Final Result [facility] [address] [place] [address] [phone] * (ABNORMAL) Comprehensive Metabolic Panel (10/09/2024 10:18 AM EST) Pathologist [facility] Sodium 141 135 - 145 mmol/L [facility] Potassium 3.9 3.3 - 5.1 mmol/L [facility] Chloride 106 96 - 108 mmol/L [facility] Carbon Dioxide 28 22 - 29 mmol/L [facility] Anion Gap 11(L) 12 - 20 [facility] Urea Nitrogen (BUN) 13 9 - 16 mg/dL [facility] Creatinine, Serum 0.65 0.5 - 1.4 mg/dL [facility] Estimated Glomerular Filt Rate >60 [facility] Comment:Chronic Kidney Disea se: Estimated GFR < 60 mL/min/1.55c7Svzwiv Kidney Disease: Estimated GFR < 15 mL/min/1.73m2 Glucose 77 60 - 115 mg/dL [facility] Calcium 8.9 8.4 - 10.2 mg/dL [facility] Bilirubin, Total 0.4 0.0 - 1.0 mg/dL [facility] Aspartate Amino Transferase 38(H) 5 - 31 U/L [facility] Alanine Aminotransferase 46(H) 0 - 31 U/L [facility] Total Protein 7.7 6.5 - 8.0 g/dL [facility] Albumin Level 4.3 3.5 - 5.0 g/dL [facility] Alkaline Phosphatase 79 39 - 117 U/L [facility] 10/09/2024 10:1 8 AM EST 10/09/2024 10:18 AM EST Generic External Data Provider LAB BLOOD ORDERAB LES Final Result Performing Organization Address [facility] [place]/[facility]/ZIP Co de Phone Number [facility] [address] [place] [phone] * Hm Mammography (07/05/2024 9:46 AM EST) Anatomical Region Laterality Modality Other Historical Provider HEALTH MAINTENANCE Final Result * HPV mRNA E6/E7 w/Reflex to HPV Genotypes 16, 18/45 (12/12/2023 10:19 AM EDT) HPV nRNA E6/E7 Not Detected Not Detected [facility] Comment:Methodology: Transcr iption-Mediated AmplificationThis assay detects E6/E7 viral messenger RNA (mRNA) from 14high-risk HPV types (16,18,31,33,35,39,45,51,52,56,58,59,66,68).Cervical sources are required for HPV testing.If a vaginal source from a patient who has had atotal hysterectomy with removal of cervix wassubmitted, please contact the testing laboratoryfor alternative testing options.For additional information, please refer tohttp://education.c4cast.com/faq/VJM565q8(This link if provided for information/educational purposes only.)THIS TEST WAS PERFORMED AT:[employer] [place] [phone] SHEPPARD MD HPV mRNA E6/E7 [facility] HPV 16 [facility] HPV 18/45 RNA [facility] 12/12/2023 10:1 9 AM EDT 12/13/2023 1:00 PM EDT Ti Castillo CNM LAB CYTOLOGY ORDERABLES F inal Result Performing Organization Address City/[facility]/ZIP Co de Phone Number [facility] [address] [place] [phone] * Pap Smear (12/12/2023 10:19 AM EDT) Swab Cervix uteri structure / Unknown 12/12/2023 10:19 AM EDT 12/13/2023 1:00 PM EDT [facility] - 01/01/2024 11:53 AM EDT ----- ------- Name: Radha Fernandez ?Age/Sex: 53/F ? : 1970 Unit#: [id number] ?? Attend Dr: TI CASTILLO CNM ?Re12/15/23 ?Status: DEP REF ? Location: HO.LNP ?Disch: ? ----- ------- SPEC : [id number] ? RECD: 12/13/23-1300 ? STATUS: ??SOUT ? REQ NUM: [id number] ? STEPH: 12/12/23-1019 ? SUBM DR: TI CASTILLO CNM ? ENTERED: ??12/13/23 ?SP TYPE: Pap Smr ?OTHR DR: ? [...] 66, 68) ?? HPV testing performed by [employer], [place], [place]. ??See reference laboratory ?? portion of the EMR for entire report. ?Clinical Information LMP: Postmenopausal Previous PAP test: 2018, Unknown findings ? Material Received ?? ThinPrep-Cervical ----- ------- Signed (signature on file) REGINA Mcnamara ([facility]) 01/01/24 1153 ? ----- ------- ? END OF REPORT ? us Ti LINDO LAB CYTOLOGY ORDERABLES F inal Result Performing Organization Address City/[facility]/ZIP Co de Phone Number [facility] [address] [place] [address] [phone] * Hemoglobin A1c (08/07/2023 10:53 AM EST) Hemoglobin A1c 5.1 <6.0 % [facility] Comment:Hemoglobin A1C Refer ence Range Adults: 4.8 - 6.0 % Non diabetic: < 6.0 % Goal: < 7.0 %Additional Action Suggested: > 8.0 %Note: Hemoglobin A1c results are invalid for patients with abnormal amounts of HbF. Blood transfusions may impact the HbA1c concentration in the patient sample. Estimated Average Glucose 100 mg/dL [facility] Comment:eAG = Estimated ave rage glucose which is %A1C expressed asaverage glucose, using the formula of the K9D-OllmqtmIwtmskb Glucose study (ADAG), Diabetes Care, Vol.31,#8,Mar. 2007 Blood Venous blood specimen / Unknown 08/07/2023 10:53 AM EST 08/07/2023 2:05 PM EST us Gabibe Cisneros MD LAB BLOOD ORDERABLES Final Resul t Performing Organization Address [facility] [place]/[facility]/ZIP Co de Phone Number [facility] [address] [place], [place] [phone] * Lipid Panel, Standard (08/07/2023 10:53 AM EST) Triglycerides 75 <150 mg/dL [facility] Comment:Desirable Triglyceri de: less than 150 mg/dLBorderline High Triglyceride 150-199 mg/dLHigh Triglyceride: 200-499 mg/dLVery High Triglyceride: greater than or equal to 5OO mg/dL Cholesterol 174 <200 mg/dL [facility] Comment:Desirable Cholestero l: less than 200 mg/dLBorderline High Cholesterol: 200-239 mg/dLHigh Cholesterol: greater than 239 mg/dL LDL Cholesterol Calculated 98 <100 mg/dL [facility] Comment:Desirable LDL: less than 100 mg/dLNear Optimal/Above Optimal LDL: 110- 129 mg/dLBorderline High LDL: 130-159 mg/dLHigh LDL: 160-189 mg/dLVery High LDL: greater than or equal to 190 mg/dL HDL Cholesterol 61 >40 mg/dL [facility] Comment:Desirable HDL: great er than 40 mg/dL Note: This HDL assay may give artificially low results in patients with liver disease. Blood Venous blood specimen / Unknown 08/07/2023 10:53 AM EST 08/07/2023 2:05 PM EST us Gabbie Cisneros MD LAB BLOOD ORDERABLES Final Resul t [facility] [address] [place] [address] [phone] from Last 3 Months or Most Recently Relevant to Health Maintenance Insurance [facility] Care Teams Leather Colorer Relationship Specialty Start Date End Date Gabbie Cisneros MD [address] [place] [phone] PCP - General Family Medicine 05/02/18 Saloni Kaminski Dispute SpecialistSeamer Operator 05/19/23 Rosemarie Palmer [address] [place] [address] Nurse Practitioner Neurology 09/18/23 Milad Mcfarland Dispute SpecialistSeamer Operator 10/01/24
--- OUTSIDE RECORDS SUMMARY | 2024-12-03 12:21 | XMS_ITS | Encounter Summary ---
Author Organization [employer] Address [address] [place] [address] Care Team Providers Care Financial Coach Name Role Phone Gabbie Cisneros MD Primary Care Provider [phone] Reason for Visit * Reason Onset Date Comments Referral 04/09/2024 Encounter Details Date Type Department Care Team ([facility] st Contact Info) Description 04/09/2024 Telephone [facility] [address] [place] [address] Gabbie Cisneros MD [address] [place] [address] Referral Social History Tobacco Use Types Packs/Day [...] Description 01/22/2025 10:15 AM EDT Office Visit [facility] [address] [place] [address] Gabbie Cisneros MD [address] [place] [address] documented as of this encounter Goals Goal [...] documented as of this encounter Care Teams Financial Coach Relationship Specialty Start Date End Date Gabbie Cisneros MD [address] [place] [phone] PCP - General Family Medicine 05/02/18 Saloni Kaminski Employee'S RepresentativeSupervisor [employer] 05/19/23 Rosemarie Palmer [address] [place] [address] Nurse Practitioner Neurology 09/18/23 Milad Mcfarland Employee'S RepresentativeSupervisor [employer] 10/01/24 documented as of this encounter
--- OUTSIDE RECORDS SUMMARY | 2024-12-03 12:21 | XMS_ITS | Encounter Summary ---
Author Organization [facility] Address [address] [place] [address] Care Team Providers Care General Internal Medicine Doctor Name Role Phone Gabbie Cisneros Primary Care Provider Unavailabl e Reason for Visit * Reason Comments E-prescribe Rx Request Encounter Details Date Type Department Care Team Description 04/17/2022 Refill General Surgery [address] [place] [phone] Will Verduzco MD [address] [place] [address] [address] [place] [address] E-prescribe Rx Request Social History Tobacco Use [...] encounter Miscellaneous Notes * Telephone Encounter - Andreina De La Cruz - 04/18/2022 8:13 AM EDT Please sign or decline documented in this encounter Plan of Treatment Not on file documented as of this encounter Visit Diagnoses Diagnosis Class 1 obesity due to excess calories without serious comorbidity with body mass index (BMI) of 30.0 to 30.9 in adult documented in this encounter Care Teams General Internal Medicine Doctor Relationship Specialty Start Date End Date Gabbie Cisneros PCP - General Family Practice 12/27/18 documented as of this encounter
--- OUTSIDE RECORDS SUMMARY | 2024-12-03 12:21 | XMS_ITS | Encounter Summary ---
Author Organization [employer] Address [address] [place] [address] Care Team Providers Care Software Sales Consultant Name Role Phone Gabbie Cisneros MD Primary Care Provider [phone] Encounter Details Date Type Department Care Team (Late st Contact Info) Description 07/08/2024 Orders Only [facility] [address] [place] [address] Provider, MD Marina Social History Tobacco Use [...] Description 01/22/2025 10:15 AM EDT Office Visit [facility] [address] [place] [address] Gabbie Cisneros MD [address] [place] [address] documented as of this encounter Goals Goal [...] EST Narrative 09/04/2024 11:29 AM EST ? [facility] ?[address] ?[place] [address] ? CT Scan Report ? Signed ? Patient: Fernandez,Radha ?MR#: [id number] ?? [id number] ? : 1970 ?Acct:[id number] ? Age/Sex: 53 / F ?ADM Date: 12/09/24 ? Loc: HO.CT ? Attending Dr: Betzaida Solis MD ? Ordering Physician: Betzaida Solis MD ?? Date of Service: 07/29/24 ?? Procedure(s): CT sinus wo IV con ?? Accession Number(s): [id number] ? cc: Betzaida Solis MD; Gabbie Cisneros MD ? Report Number: ?? [id number]: Total DLP = ?? 99.00 mGy-cm ?? [...] DD/ 0758 ? TD/TT: 07/29/24 0802 ? Cemetery Worker: MANNY ? Procedure Note Donotuseinterpreter, Image - 09/04/[address] [place] [address] [address] Scan Report Signed Patient: Darron Fernandez#: [id number] : 1970Acct:[id number] Age/Sex: 53 / FADM Date: 07/29/24 Loc: HO.CT Attending Dr: Betzaida Solis MD Ordering Physician: Betzaida Solis MD Date of Service: 07/29/24 Procedure(s): CT sinus wo IV con Accession Number(s): [id number] cc: Betzaida Solis MD; Gabbie Cisneros MD Report Number: [id number]: Total DLP = 99.00 mGy-cm EXAMINATION: CT [...] 09/04/24 1126 DD/ 0758 TD/TT: 07/29/24 0802 Cemetery Worker: MANNY [facility] External Provider IMG CT PROCEDURES Final Result * Hm Mammography (07/05/2024 9:46 AM EST) Anatomical Region Laterality Modality Other Historical Provider HEALTH MAINTENANCE Final Result documented in this encounter Visit Diagnoses Not on filedocumented in this encounter Additional Health Concerns Assessment Noted Time PHQ-9 Depression Total Score: 10 024 9:42 AM EDT documented as of this encounter Care Teams Software Sales Consultant Relationship Specialty Start Date End Date Gabbie Cisneros MD [address] [place] [address] PCP - General Family Medicine 05/02/18 Saloni Kaminski [employer] Sustainability ManagerMotor Setter 05/19/23 Rosemarie Palmer [address] [place] [address] Nurse Practitioner Neurology 09/18/23 Milad Mcfarland Energy And Sustainability ManagerMotor Setter 10/01/24 documented as of this encounter
--- OUTSIDE RECORDS SUMMARY | 2024-12-03 12:21 | XMS_ITS | Encounter Summary ---
Author Organization [facility] Address [address] [place] [address] Care Team Providers Care Precast Molder Name Role Phone Zacarias Reed MD Primary Care Provider [phone] [facility], Pcp Primary Care Provider Unavailabl e Gabbie Cisneros Primary Care Provider Unavailabl e Reason for Visit * Reason Onset Date Comments Provider Call Back 03/07/2018 Encounter Details Date Type Department Care Team Description 03/07/2018 Telephone Adult Medicine [address] [address] Zacarias Reed MD [address] [place] [id number] Provider Call Back Social History Tobacco Use [...] on filedocumented in this encounter Care Teams Precast Molder Relationship Specialty Start Date End Date Zacarias Reed MD [address] [place] [address] PCP - General Internal Medicine 12/22/17 04/24/18 [facility], Pcp [address] [place] [address] PCP - General Internal Medicine 04/25/18 12/26/18 Gabbie Cisneros [address] [place] [address] PCP - General Family Practice 12/27/18 documented as of this encounter
--- OUTSIDE RECORDS SUMMARY | 2024-12-03 12:21 | XMS_ITS | Encounter Summary ---
Author Organization [facility] Address [address] [place] [address] Care Team Providers Care Light Truck Driver Name Role Phone Gabbie Cisneros Primary Care Provider Unavailabl e Encounter Details Date Type Department Care Team Description 06/05/2019 [facility] Medical Records [address] [place] [address] Will Verduzco MD [address] [place] [address] [address] [place] [address] Social History Tobacco Use Types Packs/Day Years [...] on filedocumented in this encounter Care Teams Light Truck Driver Relationship Specialty Start Date End Date Gabbie Cisneros PCP - General Family Practice 12/27/18 documented as of this encounter
--- OUTSIDE RECORDS SUMMARY | 2024-12-03 12:21 | XMS_ITS | Encounter Summary ---
Author Organization [facility] Address [address] [place] [address] Care Team Providers Care Gas Singer Name Role Phone Marcela Easton MD Primary Care Provider U Zacarias Moseley MD Primary Care Provider [phone] [facility], Pcp Primary Care Provider Unavailsimon e Gabbie Cisneros Primary Care Provider Valentine eduardo Encounter Details Date Type Department Care Team Description 09/28/2017 Release of Information Medical Records [address] [place] [address] Abstract, Provider Social History Tobacco Use Types Packs/Day Years Used Date Smoking Tobacco: Never Assessed Sex Assigned at Date Recorded Not on file Job Start Date Occupation Industry Not on file Not on file Not on file documented as of this encounter Plan of Treatment Not on file documented as of this encounter Visit Diagnoses Not on filedocumented in this encounter Care Teams Gas Singer Relationship Specialty Start Date End Date Marcela Easton MD PCP - General Internal Medicine 08/25/17 Zacarias Reed MD [address] [place] [address] PCP - General Internal Medicine 12/22/17 04/24/18 [facility], Pcp [address] [place] [address] PCP - General Internal Medicine 04/25/18 12/26/18 Gabbie Cisneros [address] [place] [address] PCP - General Family Practice 12/27/18 documented as of this encounter
== END 2024-12-03 10:44 | disposition home or self-care (01) ==
LOC: HO.HSMS 10:19
PROVIDERS: PCP Student in an Organized Health Care Education/Training Program; Visit Provider Psychiatry & Neurology Neurology
DX: G24.3 Spasmodic torticollis (principal)
CPT/HCPCS: 64616

== ENCOUNTER → 2024-12-03 10:19 | Outpatient (BNVA) | payer MEDICAID, SELFPAY | PROVIDERS: PCP Student in an Organized Health Care Education/Training Program; Visit Provider Psychiatry & Neurology Neurology | DX: G24.3 Spasmodic torticollis (principal) | CPT/HCPCS: 64616; 99211; J0585 ==

== ENCOUNTER → 2024-12-25 13:53 | Outpatient (BNVA) | payer MEDICAID, SELFPAY | PROVIDERS: PCP Student in an Organized Health Care Education/Training Program; Visit Provider Student in an Organized Health Care Education/Training Program ==

== ENCOUNTER 2025-01-21 13:50 | Outpatient (AMB) | payer MEDICAID, SELFPAY ==
[2025-01-21 14:13] VITALS: BP 120/74; PULSE 66; O2SAT 98; BMI 31.5
--- NOTE | 2025-01-21 14:13 | A.OFFVIS_ITS ---
Vital Signs 01/21/25 14:13 Height 5 ft 3 in Weight 178 lb BMI 31.5 BP 120/74 Blood Pressure Location Rt brachial Position Sitting Pulse 66 Pulse Source Pulse Oximeter Pulse Oximetry (%) 98 Oxygen Delivery Method Room Air Intake Visit Reasons: Follow Up 6mo Equipment Validation Specialist Required: No Accompanied by: Self / Same As Patient Allergies iodine Allergy (Severe, Verified 01/21/25 14:17) Anaphylaxis shellfish derived Allergy (Severe, Verified 01/21/25 14:17) Hives Seasonal Allergies Allergy (Intermediate, Verified 01/21/25 14:17) Watery Eyes Sneezing banana Allergy (Mild, Verified 01/21/25 14:17) Itchy codeine Allergy (Mild, Verified 01/21/25 14:17) Chest Pain morphine Allergy (Mild, Verified 01/21/25 14:17) Chest Pain tree nut Allergy (Mild, Verified 01/21/25 14:17) Itchy watermelon Allergy (Mild, Verified 01/21/25 14:17) Itchy Medication List - Last Reconciled 01/21/25 by NAN Garcia albuterol sulfate 2.5 mg inhalation Q4-6H PRN albuterol sulfate 90 mcg/actuation (ProAir HFA) 2 puffs inhalation QID amitriptyline 10 - 20 mg (1 - 2 x 10 mg) PO BEDTIME 30 days aripiprazole 20 mg PO BEDTIME aspirin 81 mg PO BEDTIME 30 days atorvastatin (Lipitor) 10 mg PO DAILY [Bilateral carpal tunnel wrist splints Use nightly while sleeping] lboaoguucl-nzbyexonfr-ima-cod 81-255-82-30 mg 1 cap PO Q4H PRN calcium carbonate-vitamin D3 600 mg-10 mcg (400 unit) 1 tab PO BID celecoxib 200 mg PO BID 90 days cetirizine 10 mg PO DAILY PRN clonazepam 2 mg PO DAILY PRN 30 days clonazepam 2 mg orally for seizure lasting > 2 minutes, may repeat x's 1 and call 911; 30 days clonazepam 2 mg orally . PRN; 2 mg orally for seizure lasting > 2 minutes, may repeat x's 1 and call 911; 30 days duloxetine 30 mg PO QAM esomeprazole magnesium 20 mg PO QAM ferrous fumarate (Ferretts) 325 mg PO DAILY finasteride 5 mg PO DAILY fluocinolone 0.01% topical TID fluticasone propion-salmeterol 115-21 mcg/actuation (Advair HFA) 2 puffs inhalation ONCE fremanezumab-vfrm (Ajovy) 675 mg (4.5 mL) subcut ONCE 90 days [glucose tab PO PRN] hydroxyzine HCl 25 mg PO BEDTIME ketoconazole 2% 1 appl topical DAILY magnesium oxide 400 mg PO DAILY 30 days meclizine 25 mg PO DAILY PRN montelukast 10 mg PO BEDTIME multivitamin 1 tab PO DAILY onabotulinumtoxinA (Botox) IM ondansetron 4 mg PO Q8H PRN pantoprazole 40 mg PO pyridoxine (vitamin B6) 50 mg PO BID 30 days riboflavin (vitamin B2) 200 mg (2 x 100 mg) PO BID 30 days sertraline 50 mg PO QAM topiramate 25 - 50 mg (1 - 2 x 25 mg) PO BEDTIME 30 days triamcinolone acetonide 0.5% 1 appl topical BID triamcinolone acetonide (Nasacort) 1 spray intranasal DAILY verapamil ER 120 mg PO DAILY 30 days verapamil ER 120 mg PO DAILY 30 days vitamin A 1 cap PO QAM vitamin B complex (B Complex-Vitamin B12 tablet) 1 tab PO DAILY zolmitriptan 5 mg PO Q2H PRN 30 days HPI Comments Details: 54-yr-old female presents for f/u visit of migraine, functional neurological disorder. Pt reports she is continuing to have episodes of her left arm/hand posturing for minutes to hours, and the hand swinging out, may hit someone next to herself or smack herself. She has also noticed involuntary head shaking, lower jaw sliding which can be uncomfortable, left foot turning in- this is embarrassing for her. She continues to have convulsive episodes, even in her sleep, a couple of episodes per week. She can wake up kicking, but more often swinging her arms. Her is now sleeping with his head to the foot of the bed, as she has hit him in her sleep. He also tells her she talks in the sleep (yelling at a person in Wolof) or has a conversation with him, but then does not remember. She states that in [place], they told her she was having dystonia, which is often a/w FND. Pt reports she has continued to f/u w/ [facility] functional neurology, psychiatry, and cognitive therapy. Also, seeing an FND PT in [place]- at [facility]. Pt reports that [facility] now feel that she may have been having functional syncopal episodes from childhood. She is having tingling in her left toes and numbness moving up the left leg- she is seeing pain management, states tehy plan to do a cryotherapy. She states she wakes up with a daily headache, but the migraine attacks themselves are better. May use Tylenol or Advil in the am, and repeats 1-2 times a day as needed. Migraine headache, is mostly left sided, but can be bilateral, frontal, temporal, eye stabbing and pressure pain a/w rarely seeing crystals (like a glass shattered), photophobia, phonophobia, nausea, vomiting, allodynia, left facial spasms, brain fog, activity intolerance. [facility] Medical History Greater trochanteric bursitis of both hips Osteoarthritis involving multiple joints on both sides of body Cataract Pituitary abnormality Sleep disorder GERD (gastroesophageal reflux disease) HTN (hypertension) Diabetes Depression Anemia Surgical History Hx of tonsillectomy H/O tubal ligation H/O section H/O gastric bypass H/O laparoscopic adjustable gastric banding Hx of bilateral breast reduction surgery H/O right knee surgery H/O left knee surgery Family History Father Skin cancer Brother Heart disease Brother Cancer Mother Dementia Social History Household Members Other:: daughter Alcohol intake: never Patient Tobacco Use Status: Former Tobacco user Current occupational status: disabled Physical Exam Vital Signs: Last Vital Signs Pulse 66 01/21/25 14:13 BP 120/74 01/21/25 14:13 Pulse Ox 98 01/21/25 14:13 Oxygen Delivery Method Room Air 01/21/25 14:13 BMI result Body Mass Index 31.5 Const General: cooperative and no acute distress Orientation/consciousness: patient oriented x3 Resp Effort & Inspection: normal respiratory effort and able to speak in complete sentences Neuro Other: Mild left hemifacial spasm Bilateral posterior cervical tightness No visual head tremor Left arm rest and flex hand and elbow posture, however patient can extend fingers and are without assistance Left foot rest in slight internal rotation, with slight exaggerated arch Stand slowly, study gait. General: patient oriented x3 Cognition (Neuro): normal cognition Psych Appearance: grossly normal Mental Status: mental status grossly normal Speech and movement: Normal speech and movement present Affect: normal affect Attitude: cooperative Assessment & Plan Assessment & Plan (1) Migraine with aura, intractable, without status migrainosus: Code(s): G43.119 - Migraine with aura, intractable, without status migrainosus Category: Medical (2) Psychogenic nonepileptic seizure: Code(s): F44.5 - Conversion disorder with seizures or convulsions Category: Medical (3) Chronic migraine without aura, not intractable, without status migrainosus: Code(s): G43.709 - Chronic migraine without aura, not intractable, without status migrainosus Category: Medical (4) Spasmodic torticollis: Code(s): G24.3 - Spasmodic torticollis Category: Medical Plan For non-epileptic convulsions in setting of functional neurological d/o: Encouraged to increase overall physical activity, information shared on strategies to optimize course last posture/mobility/flexibility. For newer symptoms of lower jaw sliding which is bothersome and embarrassing for patient, suggestive patient discuss possibly trying Austedo for tardive dystonia/dyskinesia symptoms with her care team at [facility] Patient also states, she will discuss with her psychiatry team possibly reducing aripiprazole dose Continue intensive cognitive behavioral therapy at [facility]. Continue to hold Tegretol XR. Will monitor status of muscle spasms and twisting, if worsens significantly will consider resuming carbamazepine (in collaboration with [facility]). F/u [facility] Epilepsy and Functional Neurological Disorder clinic as scheduled. For bilateral carpal tunnel syndrome: Bilateral carpal tunnel wrist splints qhs prn. For bilateral lower extremity paresthesias: 01/26/2024 BLE EMG/NCS- normal. Trial adding foot and ankle exercises- list of at home exercises with patient Follow-up with pain management as scheduled Continue to monitor ? For migraine prevention: Continue Ajovy 225mg/1.5ml autoinjector- injection 225mg subcutaneously once a month until dose, then change to 675mg x's (3 225mg injections) q 90 days (take inbetween botox injections) Increase Topiramate from 25 qhs to 50mg qhs. Continue Amitriptyline 20mg qhs- helps for sleep. Continue Riboflavin 400 mg daily in a.m. Continue Mag 400 mg daily at bedtime Continue Verapamil ER 120mg qhs. Previous migraine prevention trials: Aimovig- effective but denied by insurance. Gabapentin- causes twitching. Migraine tx contraindications- Beta-blockers d/t asthma dx. For acute migraine tx: Continue Zolmitriptan 5mg tab, 1/2 - 1 tab (2.5-5mg) at onset of headache, may repeat in 4 hours. Max of 2 tabs (10mg) per 24 hours. May adjunct with OTC T ylenol 650mg every 4 hours, Ibuprofen (liquigel) 600mg every 6 hours, or Naproxen (liquigel) 440mg every 12 hrs as needed. Potential adverse effects of triptans, include but are not limited to nausea, fatigue, chest tightness/tingling (usually passes within a few minutes), medication overuse headaches. Previous acute migraine tx trials: Sumatriptan 100mg- ineffective. ? For spasmodic torticollis: Continue botox- Written instructions given to patient Pt to follow-up in 6 months or sooner prn. Medications: New topiramate (Topamax) 50 mg PO BEDTIME 90 days 90 tabs 1RF Changed From magnesium oxide 400 mg PO DAILY 30 days 30 tabs 6RF To magnesium oxide 400 mg PO DAILY 90 days 90 tabs 3RF From riboflavin (vitamin B2) at noon and qhs 200 mg (2 x 100 mg) PO BID 30 days 120 tabs 6RF To riboflavin (vitamin B2) at noon and qhs 200 mg (2 x 100 mg) PO BID 90 days 360 tabs 3RF From fremanezumab-vfrm (Ajovy) administer 225mg sc q month 675 mg (4.5 mL) subcut ONCE 90 days 4.5 mL 3RF G43.119 - Migraine with aura, intractable, without status migrainosus To fremanezumab-vfrm (Ajovy) 675 mg (4.5 mL) subcut ONCE 90 days 4.5 mL 3RF G43.119 - Migraine with aura, intractable, without status migrainosus Refilled amitriptyline 10 - 20 mg (1 - 2 x 10 mg) PO BEDTIME 30 days 60 tabs 3RF verapamil ER at bedtime 120 mg PO DAILY 30 days 30 caps 6RF zolmitriptan do not exceed 2 doses per 24 hrs 5 mg PO Q2H 30 days PRN 12 tabs 6RF migraine headache Discontinued verapamil ER at bedtime Discontinued Reason: Duplicate 120 mg PO DAILY 30 days 30 caps 6RF topiramate Discontinued Reason: Doctor's Order 25 - 50 mg (1 - 2 x 25 mg) PO BEDTIME 30 days 60 tabs 3RF Coding Level of Care Code Est Pt Level 4 (87612) Complex EM visit Add On G2211 Diagnoses Migraine with aura, intractable, without status migrainosus G43.119 Psychogenic nonepileptic seizure F44.5 Chronic migraine without aura, not intractable, without status migrainosus G43.709 Spasmodic torticollis G24.3
--- OUTSIDE RECORDS SUMMARY | 2025-01-21 15:35 | XMS_ITS | Data Portability ---
Author Organization [place] - [facility], Allergy Address [address] [address] Care Team Providers Care Actuarial Director Name Role Phone RAÚL GOLDSMITH Primary Care Provider Assessment No assessment recorded. Plan of Treatment Reminders Order Date Submit Date Provider Last Modified By Organization Details Last Modified Time Details Appointments None recorded. Lab None recorded. Referral None recorded. Procedures None recorded. Surgeries None recorded. Imaging None recorded. Medication Orders clotrimaz ole-betam ethasone 1 %-0.05 % topical cream 025 025 [id number], [address] [place], [place], [id number], 10:09:05 Patient TargetsNo targets recorded. Patient InstructionsNo instructions recorded. Reason for Referral None Reported. Results Created Date Observation Date Name Description Value Unit Range Abnormal Flag Note LastModifiedBy Organization Detail LastModifiedTime 10/15/19 audio gram No observ ation record ed. BARCODE Not Available 2024 10:40:17 10/15/1907/29/2024 CT, maxil lofac ial, w/o contr ast No observ ation record ed. [email or web address] Not Available 09/22 16:43:45 10/15/1907/29/2024 CT, maxil lofac ial, w/o contr ast No observ ation record ed. [email or web address] Not Available 09/22 16:06:00 Result Notes None recorded. Problems Name Problem SNOMED Code Status Onset Date Resolution Date Notes Provider Name and Address Organization Details Recorded Time Abnormal auditory perceptio n 48440989 Active 2019 Other abnormal auditory perceptio ns, bilateral ; Note: Date Diagnosed : 0 10:38 AM (H93.293) Not Available [facility] 4 02:13:44 Dysphonia 12583463 Active 2019 Hoarsenes s; Note: Date Diagnosed : 0 9:46 AM (R49.0) Not Available [facility] 4 02:14:45 Dizziness and giddiness 954129757 Active 2019 Dizziness and giddiness ; Note: Date Diagnosed : 0 10:38 AM (R42) Not Available [facility] 4 02:13:41 Bilateral tinnitus 62007961862 02 Active 2024 JUNIOR HUBBARD MA, CCC-A [address], [place], [address] , [place] - [facility] 5 09:44:32 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,[place] [facility], [place], [address] , [facility] - [facility] [place] 5 10:05:08 Headache 23639325 Active 2024 NEPTALI PENN MD [address] [facility],[place] [facility], [place], [address] , [facility] - [facility] [place] 5 10:06:26 Unsteady when walking 67166260 Active 2024 NEPTALI PENN MD [address] [facility],[address], [place], [address] , [facility] - [facility] 5 10:08:03 Problem Notes None recorded. Procedures Surgical History Date Name Laterality Status Provider Name and Address Organization Details Recorded Time 10/15/2024 Air & Speech Audio with Tymps - 98325, 24809 & 50260 completed JUNIOR HUBBARD MA, CCC-A [address], [place], [address], [facility] - [facility] 10/15/2024 09:44:42 Imaging Results None recorded. Procedure Notes None recorded. Medical Equipment None Reported. Allergies Allergen ID Allergen Name Allergen Category Reaction Reaction Severity Criticality Documentation Date Start Date Code Code System Note Provider Name and Address Organization Details Recorded Time 18920 codeine medicatio n other Not available Not available 01/02/2024 2670 RxNorm React ion: other react ion, Unkno wn; Not Available [facility] 4 00:50:58 45307 morphine medicatio n other Not available Not available 01/02/2024 7052 RxNorm React ion: other react ion, Unkno wn; Not Available [facility] 4 00:51:04 94541 Iodinated contrast media (substanc e) medicatio n other Not available Not available 01/02/2024 75761 2003 SNOMED React ion: other react ion, Unkno wn; Not Available [facility] 4 00:51:09 Medications Name Sig Start [...] topical cream 10/15 completed Medicati on ID: [id number] B rand Name: triamcin olone acetonid e [...] mg tablet 10/15 completed Medicati on ID: [id number] B rand Name: sumatrip napier succinat e [...] mg tablet 10/15 completed Medicati on ID: [id number] B rand Name: amitript yline Se nd [...] mg capsule 10/15 completed Medicati on ID: [id number] Lexie barcenas Name: gabapent in Send Method: E-Prescr ibed [...] elayed release 10/15 completed Medicati on ID: [id number] B rand Name: duloxeti ne Send Method: [...] chewable tablet 10/15 completed Medicati on ID: [id number] B rand Name: Vitamin D3 Send Method: E-Prescr ibed Sub s Allowed: subs [place] Speci al Instruct ion: SUPERVISOR BEATER ROOM 2 TS PO QD Medic ationGen ericName : Vitamin D3 Not Available Not Available Not Available OptiChamb er Lori [facility] with Large Mask USE DIRECTED TWICE [...] Details Last Updated DateTime 10/15/2024 160.02 cm 67034.3 g Cynthia Benítez [place] [facility] 10/15/2024 09:51:15 Social History None recorded. Functional [...] SNOMED-CT Code Diagnosis ICD10 Code Diagnosis Note [id number] NEPTALI PENN MD [facility] 100 [facility] [place] [address] 10/15/2024 09:03:00 10/15/2024 10:08:13 Bilateral tinnitus [id number] 102 H93.13 Audiologic al evaluation results:Ri ght ear:Normal hearing with excellent word recognitio n.Left ear:Normal hearing with excellent word recognitio n.Tympanom etry:Right Ear:Type ALeft Ear:Type AAudiometr ic testing reviewed with patient. She has excellent [...] caffeine, salty meals and NSAIDs. Dermal mycosis 98713452 B36.9 The skin of the left external auditory canal is showing signs of [...] reduce the risk of recurrence . Headache 18193969 R51.9 Patient reporting facial headaches between her [...] reported nasal dryness. Unsteady when walking 22 293292 R26.89 Patient with balance disturbanc e which [...] she continue to work with her orthopedic environmental health specialist in this regard. Health Concerns Section Related Observation LastModified by Organization Detai ls LastModified Time None Recorded Concern Status LastModified by Organization Details LastModified Time None Recorded Advance Directives Directive None Recorded Payers Insurance Date Sequence Insurance Name Policy Number Policy Farrell Covered Member ID Farrell Member ID Guarantor Name 10/15/2024 1 [place]: [facility] Radha Fernandez [id number] Radha Fernandez Notes Date Note Type Note [...] of no clinical significance NEPTALI PENN MD [address] [place] [address], [address], [place] - [facility] 10/15/2024 10:11:20 OBGyn Episode No OBEpisode recorded.
== END 2025-01-21 15:15 | disposition home or self-care (01) ==
LOC: HO.HSMS 13:51
PROVIDERS: PCP Student in an Organized Health Care Education/Training Program; Visit Provider Nurse Practitioner Family
DX: G43.119 Migraine with aura, intractable, without status migrainosus (principal); F44.5 Conversion disorder with seizures or convulsions; G43.709 Chronic migraine without aura, not intractable, without status migrainosus; G24.3 Spasmodic torticollis
CPT/HCPCS: 99214

== ENCOUNTER → 2025-01-21 13:50 | Outpatient (BNVA) | payer MEDICAID, SELFPAY | PROVIDERS: PCP Student in an Organized Health Care Education/Training Program; Visit Provider Nurse Practitioner Family | DX: G43.119 Migraine with aura, intractable, without status migrainosus (principal); G43.709 Chronic migraine without aura, not intractable, without status migrainosus; F44.5 Conversion disorder with seizures or convulsions; G24.3 Spasmodic torticollis | CPT/HCPCS: 99212 ==

== ENCOUNTER 2025-03-04 09:39 | Outpatient (AMB) | payer MEDICAID, SELFPAY ==
--- OUTSIDE RECORDS SUMMARY | 2020-01-02 12:02 | XMS_ITS | Continuity of Care Document ---
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 Name Role Phone Vinicio Porter MD Unavailable Unavailable Allergies, Adverse Reactions, Alerts Substance Reaction Status Criticality iodine Hives/Skin Rash(moderate) Active No Information DYE Active No Information morphine Hives/Skin Rash Active No Informati on codeine Hives/Skin Rash Active No Informati on Medications Medication Instructions Dosage Effective Dates (start - stop) Status Comments LORATADINE 10 MG TABLET take 1 tablet by oral route every day 10 MG - Active MOBIC 15 MG TABLET take 1 tablet by oral route every day - Active CYCLOBENZAPRINE 10 MG TABLET take 1 tablet by oral route every day 10 MG - Active PROAIR HFA 90 MCG/ACTUATION AEROSOLINHALER inhale 2 puff by inhalation route every 4 - 6 hours as needed - Active METFORMIN ER 500 MG TABLET,EXTENDEDRELEASE 24 HR take 1 tablet by oral route 2 times every day with the evening meal 500 MG - Active amitriptyline 10 mg tablet take 1 tablet by oral route every day at bedtime 10 MG - Active atorvastatin 10 mg tablet take 1 tablet by oral route every day - Active hydrochlorothiazide 12.5 mg tablet take 1 tablet by oral route every day 12.5 MG - Active gabapentin 600 mg tablet take 1 tablet b y oral route every day 600 MG - Active Asmanex Twisthaler 110 mcg (30 doses) breath activated inhale 2 puff by inhalation route every day in the evening 220 MCG - Active CABERGOLINE 0.5 MG TABLET take 1 tablet by oral route 2 times every week 0.5 MG - Active Bluebridge DigitalTouch Ultra2 kit test blood sugars twice a day - Active OneTouch UltraSoft Lancets test blood rowley gars twice a day - Active OneTouch Ultra Test strips test blood rowley gars twice a day - Active Vitamin D3 400 unit capsule once daily - Active ketotifen 0.025 % (0.035 %) eye drops instill 1 drop by ophthalmic route 2 times every day into affected eye(s) 1 drop - Active EpiPen 2-Michele 0.3 mg/0.3 mL injection, auto-injector inject 0.3 milliliter by intramuscular route once as needed for anaphylaxis 0.3 MG - Active Hemorrhoid Preparation suppository apply bid. - Active Procedures Procedure Date TOBACCO USE, SMOKING, ASSESS TOBACCO NON-USER AMNT PAIN NOTED; NONE PRSNT MED LIST DOCD IN RCRD SYST BP LT 130 MM HG DIAST BP < 80 MM HG OFFICE/OUTPATIENT VISIT, EST COMPREHEN METABOLIC PANEL BLOOD FOLIC ACID SERUM LIPID PANEL CBC W/AUTO DIFF WBC GLYCOHEMOBLOBIN A1C REFERRAL LAB 2016 T[facility] ASSAY OF FREE THYROXINE Referral 2016 VITAMIN B-12 Routine Venipuncture Temp Fix 7 TOBACCO USE, SMOKING, ASSESS TOBACCO NON-USER AMNT PAIN NOTED; NONE PRSNT FALL RISK ASSESSMENT DOC'D SYST BP LT 130 MM HG DIAST BP 80-89 MM HG OFFICE/OUTPATIENT VISIT, EST TOBACCO USE, SMOKING, ASSESS TOBACCO NON-USER AMNT PAIN NOTED; NONE PRSNT SYST BP LT 130 MM HG DIAST BP < 80 MM HG OFFICE/OUTPATIENT VISIT, EST TOBACCO USE, SMOKING, ASSESS TOBACCO NON-USER AMNT PAIN NOTED; PAIN PRSNT DEPRESSION SCREENING SYST BP GE 130 - 139MM HG DIAST BP 80-89 MM HG OFFICE/OUTPATIENT VISIT, EST URINALSIS AUTO W SCOPE REFERRAL LAB COMPREHEN METABOLIC PANEL BLOOD FOLIC ACID SERUM LIPID PANEL CBC W/AUTO DIFF WBC GLYCOHEMOBLOBIN A1C REFERRAL LAB 2016 BLOOD FOLIC ACID SERUM TSH ASSAY OF FREE THYROXINE Referral 2016 VITAMIN B-12 Routine Venipuncture Temp Fix 7 VISUAL ACUITY SCREEN PURE TONE HEARING TEST, AIR URINALYSIS NONAUTO W/O SCOPE TOBACCO USE, SMOKING, ASSESS TOBACCO NON-USER AMNT PAIN NOTED; PAIN PRSNT FALL RISK ASSESSMENT DOC'D SYST BP LT 130 MM HG DIAST BP 80-89 MM HG OFFICE/OUTPATIENT VISIT, EST PURE TONE HEARING TEST, AIR COMPREHEN METABOLIC PANEL BLOOD FOLIC ACID SERUM LIPID PANEL CBC W/AUTO DIFF WBC GLYCOHEMOBLOBIN A1C REFERRAL LAB 2016 TSH VITAMIN B-12 URINALSIS AUTO W SCOPE REFERRAL LAB ROUTINE VENIPUNCTURE CYTOPATH, C/V, THIN LAYER HPV High Risk Types TOBACCO USE, SMOKING, ASSESS TOBACCO NON-USER AMNT PAIN NOTED; NONE PRSNT SYST BP LT 130 MM HG DIAST BP 80-89 MM HG FALL RISK ASSESSMENT DOC'D OFFICE/OUTPATIENT VISIT, EST OFFICE/OUTPATIENT VISIT, EST TOBACCO USE, SMOKING, ASSESS TOBACCO NON-USER AMNT PAIN NOTED; NONE PRSNT FALL RISK ASSESSMENT DOC'D SYST BP LT 130 MM HG DIAST BP < 80 MM HG OFFICE/OUTPATIENT VISIT, EST TOBACCO USE, SMOKING, ASSESS TOBACCO NON-USER AMNT PAIN NOTED; NONE PRSNT SYST BP LT 130 MM HG DIAST BP < 80 MM HG FALL RISK ASSESSMENT DOC'D OFFICE/OUTPATIENT VISIT, EST HIV-1 AG W/HIV-1 & HIV-2 AB ROUTINE VENIPUNCTURE CYTOPATH, C/V, THIN LAYER HPV High Risk Types FUNGUS ISOLATION CULTURE Trichomonas Vaginalis, Amplified Probe T echnique SIALIDASE ENZYME ASSAY CHYLMD TRACH, DNA, AMP PROBE N.GONORRHOEAE, DNA, AMP PROB TOBACCO USE, SMOKING, ASSESS TOBACCO NON-USER SYST BP LT 130 MM HG DIAST BP < 80 MM HG FALL RISK ASSESSMENT DOC'D AMNT PAIN NOTED; NONE PRSNT OFFICE/OUTPATIENT VISIT, EST TOBACCO USE, SMOKING, ASSESS TOBACCO NON-USER AMNT PAIN NOTED; PAIN PRSNT SYST BP LT 130 MM HG DIAST BP < 80 MM HG OFFICE/OUTPATIENT VISIT, EST TOBACCO USE, SMOKING, ASSESS TOBACCO NON-USER AMNT PAIN NOTED; PAIN PRSNT SYST BP LT 130 MM HG DIAST BP < 80 MM HG OFFICE/OUTPATIENT VISIT, EST OFFICE/OUTPATIENT VISIT, EST COMPREHEN METABOLIC PANEL BLOOD FOLIC ACID SERUM LIPID PANEL CBC W/AUTO DIFF WBC GLYCOHEMOBLOBIN A1C REFERRAL LAB 2016 TSH ASSAY OF FREE THYROXINE Referral 2016 ASSAY OF BLOOD/URIC ACID VITAMIN B-12 ASSAY OF DIHYDROXYVITAMIN D ROUTINE VENIPUNCTURE OFFICE/OUTPATIENT VISIT, EST Toradol IM Per 15mg OFFICE/OUTPATIENT VISIT, EST ACUTE HEPATITIS PANEL BLOOD SEROLOGY, QUALITATIVE CHYLMD TRACH, DNA, AMP PROBE N.GONORRHOEAE, DNA, AMP PROB HERPES SIMPLEX TEST HERPES SIMPLEX TYPE 2 HIV-1 AG W/HIV-1 & HIV-2 AB OFFICE/OUTPATIENT VISIT, EST ROUTINE VENIPUNCTURE RBC SED RATE, AUTOMATED ANTINUCLEAR ANTIBODIES RHEUMATOID FACTOR, QUANT BLOOD SEROLOGY, QUALITATIVE OFFICE/OUTPATIENT VISIT, EST Routine Venipuncture Temp Fix 6 OFFICE/OUTPATIENT VISIT, EST ASSAY OF PROLACTIN Routine Venipuncture Temp Fix 6 HPV High Risk Types CYTOPATH C/V AUTO FLUID REDO CYTOPATH, C/V, THIN LAYER OFFICE/OUTPATIENT VISIT, EST COMPREHEN METABOLIC PANEL LIPID PANEL CBC W/AUTO DIFF WBC ASSAY OF DIHYDROXYVITAMIN D BLOOD FOLIC ACID SERUM TSH ASSAY OF FREE THYROXINE Referral 2015 VITAMIN B-12 URINALSIS AUTO W SCOPE REFERRAL LAB Routine Venipuncture Temp Fix 6 OFFICE/OUTPATIENT VISIT, NEW GLYCATED HEMOGLOBIN A1C IN HOUSE 2015 CAPILLARY BLOOD DRAW ELECTROCARDIOGRAM, COMPLETE Advance Directives Directive Yes / No Effective Date File Name No Information Encounters Encounter Description Practice Location Reason(s) For Visit Diagnoses Date Provider Providers Copied on Encounter [facility], [address] [place] [address], [id number] , [facility] No Information 0 Charlotte Mooney. [address] [employer] [address], [place], [id number], [place]. tel:[phone] [facility], [address] [place] [address], [id number] , [facility] No Information 7 Charlotte Mooney. [address] [facility] [address], [place], [id number], [place]. tel:[phone] OFFICE/OUTPA TIENT VISIT, [facility], [address] [place] [address], [id number] , [facility] lab result (chief complaint)hyp ertension (chief complaint)hyp erlipidemia (chief complaint) Body mass index (BMI) 37.0-37.9, adultEssential (primary) hypertensionHy perlipidemia, unspecifiedBen ign neoplasm of pituitary gland 7 Charlotte Mooney. [address] [facility] [address], [place], [id number], [place]. tel:[phone] [facility], [address] [place] [address], [id number] , [facility] No Information 7 Nurse Nurse. . [facility], [address] [place] [address], [phone] , [facility] No Information 7 Nurse Nurse. . OFFICE/OUTPA TIENT VISIT, [facility], [address] [place] [address], [phone] , [facility] Hearing loss (chief complaint)hyp ertension (chief complaint)hyp erlipidemia (chief complaint)sei zure (chief complaint) Body mass index (BMI) 37.0-37.9, adultDizziness Hearing lossEssential (primary) hypertensionHy perlipidemia, unspecifiedUns pecified convulsions [facility]. [address] [place] [address], [id number], [place]. tel:[phone], [id number] , [place] [facility] Dizziness [facility]. [address], [id number], [place]. tel:[phone] OFFICE/OUTPA TIENT VISIT, [facility], [address] [place] [address], [id number] , [facility] hemorroids (chief complaint)diz ziness (chief complaint)pit uitary tumor (chief complaint) Body mass index (BMI) 40.0-44.9, adultBenign neoplasm of pituitary glandDizziness Other hemorrhoids [facility]. [address], [id number], [place]. tel:[phone] OFFICE/OUTPA TIENT VISIT, [address], [id number] , [place] [facility] lab review (chief complaint) Body mass index (BMI) 37.0-37.9, adultBenign neoplasm of pituitary glandFibromyal giaBack painSleep apneaHearing lossOtalgiaDep ression [facility]. [address], [id number], [place]. tel:[phone], [id number] , [place] [facility] No Information 7 Nurse Nurse. . [facility], [address] [place] [address], [id number] , [place] [facility] No Information 7 Nurse Nurse. . OFFICE/OUTPA TIENT VISIT, EST [facility], [address] [place] [address], [phone] , [place] [facility] physical (chief complaint) Body mass index (BMI) 37.0-37.9, adultEncounter for exam of eyes and vision w/o abnormal findingsEncntr for exam of ears and hearing w oth abnormal findingsEncntr for general adult medical exam w/o abnormal findingsBack painSleep apneaBenign neoplasm of pituitary glandBenign neoplasm of pituitary gland 7 Charlotte Mooney. [address] [facility] [address], [place], [place], [id number], [place]. tel:[phone] [facility], [address] [place] [address], [id number] , [place] [facility] No Information 7 Charlotte Mooney. [address] [facility] [address], [place], [place], [id number], [place]. tel:[phone] [facility], [address] [place] [address], [id number] , [place] [facility] No Information 7 Charlotte Mooney. [address] [facility] [address], [place], [place], [id number], [place]. tel:[phone] [facility], [address] [place] [address], [phone] , [place] [facility] No Information 7 Nurse Nurse. . [facility], [address] [place] [address], [phone] , [place] [facility] No Information 7 Charlotte Mooney. [address], [id number], [place]. tel:[phone] OFFICE/OUTPA TIENT VISIT, [address], [phone] , [facility] pituitary adenoma (chief complaint)fib romyalgia (chief complaint) Benign neoplasm of pituitary glandFibromyal giaUnspecified convulsionsEss ential (primary) hypertensionMa tran depressive disorder, single episode, unspecifiedHyp erlipidemia, unspecifiedPer romelia history of colonic polypsBody mass index (BMI) 37.0-37.9, adultEncounter for oth screening for malignant neoplasm of breastEncounte r for screening for malignant neoplasm of cervixNonscarr ing hair loss, unspecifiedOth er abnormal glucose Charlotterebecca Mooney. [address] [place] [address], [id number], [place]. tel:[phone] OFFICE/OUTPA TIENT VISIT, [facility], [address] [place] [address], [phone] , [place] [facility] chronic condition (chief complaint) Body mass index (BMI) 37.0-37.9, adultDysmenorr heaBenign neoplasm of pituitary glandEssential (primary) hypertensionUn specified convulsions Charlotte Mooney. [address] [place] [address], [id number], [place]. tel:[phone] OFFICE/OUTPA TIENT VISIT, [address], [id number] , [place] [facility] pap result (chief complaint) Encounter for screening for malignant neoplasm of cervixBody mass index (BMI) 37.0-37.9, adult Charlotte Mooney. [address] [place] [address], [id number], [place]. tel:[phone] OFFICE/OUTPA TIENT VISIT, [address], [id number] , [place] [facility] lab result (chief complaint) Body mass index (BMI) 37.0-37.9, adultDysmenorr hea May-1 0-201 7 Charlotte Lambd. [address] [facility] [address], [place], [id number], [place]. tel:[phone] [facility], [address] [place] [address], [phone] , [facility] Bradycardia, unspecified May-0 8-201 7 Charlotterebecca Lambd. [address] [facility] [address], [place], [id number], [place]. tel:[phone] [facility], [address] [place] [address], [phone] , [facility] No Information May-0 5-201 7 Nurse Nurse. . [facility], [address] [place] [address], [id number] , [facility] No Information May-0 5-201 7 Nurse Nurse. . [facility], [address] [place] [address], [phone] , [facility] No Information December-0 4-201 7 Charlotterebecca Lambd. [address] [facility] [address], [place], [id number], [place]. tel:[phone] OFFICE/OUTPA TIENT VISIT, [facility], [address] [place] [address], [phone] , [place] [facility] ER followup (chief complaint) Body mass index (BMI) 37.0-37.9, adultVaginitis Encounter for screening for malignant neoplasm of cervixEncounte r for screening for malignant neoplasm of cervixRash December-0 4-201 7 Charlotte Lambd. [address] [facility] [address], [place], [id number], [place]. tel:[phone] OFFICE/OUTPA TIENT VISIT, [facility], [address] [place] [address], [phone] , [place] [facility] uri (chief complaint) Body mass index (BMI) 37.0-37.9, adultAcute respiratory infection Nov-2 5- 7 Charlotte Mooney. 460 [facility] [address], [place], [id number], [place]. tel:[phone] OFFICE/OUTPA TIENT VISIT, [facility], [address] [place] [address], [id number] , [place] [facility] MRI results (chief complaint) FibromyalgiaBe nign neoplasm of pituitary glandAbnormal glucoseEssenti al (primary) hypertensionMa tran depressive disorder, single episode, unspecifiedPer romelia history of colonic polypsUnspecif ied convulsionsBod y mass index (BMI) 37.0-37.9, adultEncounter for oth screening for malignant neoplasm of breast Nov-1 0- 7 Charlotte Mooney. [address] [facility] [address], [place], [id number], [place]. tel:[phone] OFFICE/OUTPA TIENT VISIT, [facility], [address] [place] [address], [phone] , [place] [facility] pituitary tumor (chief complaint) Benign neoplasm of pituitary glandFibromyal giaDepressionP ain, unspecifiedVit freeman D deficiency Mar-1 0- 7 Charlotte Mooney. [address], [id number], [place]. tel:[phone] [facility], [address] [place] [address], [id number] , [place] [facility] No Information Mar-0 3-201 7 Nurse Nurse. . [facility], [address] [place] [address], [phone] , [place] [facility] No Information Mar-0 2-201 7 Nurse Nurse. . OFFICE/OUTPA TIENT VISIT, [facility], [address] [place] [address], [phone] , [place] [facility] Neck pain (chief complaint) Pain, unspecifiedFib romyalgiaBenig n neoplasm of pituitary glandBradycard iaBody mass index (BMI) 36.0-36.9, adult 7 Charlotte Mooney. [address] [facility] [address], [place], [id number], [place]. tel:[phone] OFFICE/OUTPA TIENT VISIT, [facility], [address] [place] [address], [phone] , [facility] result (chief complaint)Nec k pain (chief complaint) Benign neoplasm of pituitary glandEssential (primary) hypertensionUn specified convulsionsHyp erlipidemiaDep ressionMigrain eAbnormal glucoseEncount er for oth screening for malignant neoplasm of breastPain, unspecified 7 Charlotte Mooney. [address] [facility] [address], [place], [id number], [place]. tel:[phone] [facility], [address] [place] [address], [phone] , [place] [facility] No Information 6 Charlotte Mooney. [address] [facility] [address], [place], [id number], [place]. tel:[phone] OFFICE/OUTPA TIENT VISIT, [facility], [address] [place] [address], [phone] , [place] [facility] bacterial vaginits (chief complaint) Body mass index (BMI) 37.0-37.9, adultVaginitis Benign neoplasm of pituitary glandEncntr for silk weaver exam (general) (routine) w/o abn findings 6 Charlotte Mooney. [address] [facility] [address], [place], [id number], [place]. tel:[phone] [facility], [address] [place] [address], [phone] , [facility] No Information 6 No Information OFFICE/OUTPA TIENT VISIT, [facility], [address] [place] [address], [phone] , [facility] Follow Up of coldness and pain in legs (chief complaint)Fol low Up of bradycardia (chief complaint) Radiculopathy, lumbar regionParesthe silvio of skinPain in unspecified kneeBradycardi a 6 No Information OFFICE/OUTPA TIENT VISIT, [facility], [address] [place] [address], [phone] , [facility] lab result (chief complaint) FibromyalgiaUn specified convulsionsEss ential (primary) hypertensionMa tran depressive disorder, single episode, unspecifiedBen ign neoplasm of pituitary glandPersonal history of colonic polypsPain in unspecified kneeBody mass index (BMI) 39.0-39.9, adult Oct- 6- 6 Charlotte Steinbergmad. [address] [facility] [address], [place], [id number], [place]. tel:[phone] [facility], [address] [place] [address], [phone] , [facility] No Information 6 Nurse Nurse. . [facility], [address] [place] [address], [phone] , [facility] No Information - 6 Nurse Nurse. . [facility], [address] [place] [address], [phone] , [facility] No Information - 6 Charlotte Steinbergmad. [address] [facility] [address], [place], [place], [id number], [place]. tel:[phone] OFFICE/OUTPA TIENT VISIT, [facility], [address] [place] [address], [phone] , [facility] hypertension (chief complaint) Abnormal glucoseFibromy algiaEssential (primary) hypertensionUn specified convulsionsMaj or depressive disorder, single episode, unspecifiedBen ign neoplasm of pituitary glandHyperlipi demiaPersonal history of colonic polypsBody mass index (BMI) 39.0-39.9, adultEncounter for screening for malignant neoplasm of cervixEncounte r for oth screening for malignant neoplasm of breastPain in unspecified kneeEncntr for silk weaver exam (general) (routine) w/o abn findings 6 Charlotte Mooney. [address] [facility] 5, [place], [place], [id number], [place]. tel:[phone] [facility], [address] [place] [address], [phone] , [facility] No Information Apr- 6 Nurse Nurse. . [facility], [address] [place] [address], [phone] , [facility] No Information 6 Nurse Nurse. . OFFICE/OUTPA TIENT VISIT, [address], [phone] , [facility] Body mass index (BMI) 39.0-39.9, adultMigraineS eizureFibromya lgiaEssential (primary) hypertensionOb esityOvarian cystDepression Abnormal glucoseEncount er for screening for malignant neoplasm of cervixBradycar man 6 Charlotte Mooney. [address] [facility] [address], [place], [place], [id number], [place]. tel:[phone] Family History Family Member Type Diagnosis Age At Onset Brother Problem (finding) coronary arterioscleros is Problem (finding) Family history of cance r of colon Brother Problem (finding) cancer of colon Brother Problem (finding) aneurysm Problem (finding) Family history of Cance r, skin Mother Problem (finding) osteoporosis Payers Payer name Insurance type Covered democrat ID Authoriza tion(s) No Information Social History Type Description Quantity Date Captured Comments Alcohol Use Details Unknown Caffeine Use Details Unknown Tobacco Use Status No Information Smoking Status No Information Sex Female Gender Identity Female Chief Complaint And Reason For Visit No Information Reason For Referral Reason For Referral No Information Plan Of Treatment Date Type Action Status Goal Td vaccine. Due on 20 due Goal Tdap. Due on due Goal Influenza vaccine. Due on due Goal ECG due Goal Lipid panel. Due on 022 due Goal Pap/HPV testing. Due on due Goal Colonoscopy. Due on 027 due Goal Depression scree ruperto. Due on due Goal Urinalysis due Goal Zoster vaccine ( ). Due on due Goal Lifestyle education regardin g diet completed Goal Tdap. Due on due Goal Td vaccine. Due on 17 due Goal Td vaccine. Due on 17 due Goal Tdap. Due on due Goal Lifestyle education regardin g diet completed Goal Tdap. Due on due Goal Td vaccine. Due on due Goal Td vaccine. Due on 17 due Goal Tdap. Due on due Goal Lifestyle education regardin g diet completed Goal Tdap. Due on due Goal Td vaccine. Due on 17 due Goal Lifestyle education regardin g diet completed Goal Td vaccine. Due on 17 due Goal Tdap. Due on due Goal Tdap. Due on due Goal Td vaccine. Due on 17 due Goal Lifestyle education regardin g diet completed Goal Td vaccine. Due on 17 due Goal Tdap. Due on due Goal Td vaccine. Due on due Goal Tdap. Due on due Goal Td vaccine. Due on due Goal Tdap. Due on due Goal Lifestyle education regardin g diet completed Goal Influenza vaccine. Due on due Goal Td vaccine. Due on due Goal Tdap. Due on due Goal Lifestyle education regardin g diet completed Goal Influenza vaccine. Due on due Goal Td vaccine. Due on due Goal Tdap. Due on due Goal Depression scree ruperto. Due on due Goal Lifestyle education regardin g diet completed Goal Influenza vaccine. Due on due Goal Tdap. Due on due Goal Td vaccine. Due on due Goal Depression scree ruperto. Due on due Goal Lifestyle education regardin g diet completed Goal Depression scree ruperto. Due on due Goal Td vaccine. Due on due Goal Tdap. Due on due Goal Influenza vaccine. Due on due Goal Influenza vaccine. Due on due Goal Td vaccine. Due on due Goal Depression scree ruperto. Due on due Goal Tdap. Due on due Goal Tdap. Due on due Goal Depression scree ruperto. Due on due Goal Td vaccine. Due on due Goal Influenza vaccine. Due on due Goal Depression scree ruperto. Due on due Goal Td vaccine. Due on due Goal Influenza vaccine. Due on due Goal Tdap. Due on due Goal Lifestyle education regardin g diet completed Goal Td vaccine. Due on due Goal Depression scree ruperto. Due on due Goal Tdap. Due on due Goal Influenza vaccine. Due on due Goal Lifestyle education regardin g diet completed Goal Tdap. Due on due Goal Td vaccine. Due on due Goal Depression scree ruperto. Due on due Goal Influenza vaccine. Due on due Goal Lifestyle education regardin g diet completed Goal Td vaccine. Due on due Goal Depression scree ruperto. Due on due Goal Tdap. Due on due Goal Influenza vaccine. Due on due Goal Depression scree ruperto. Due on due Goal Influenza vaccine. Due on due Goal Td vaccine. Due on due Goal Tdap. Due on due Goal Depression scree ruperto. Due on due Goal Tdap. Due on due Goal Td vaccine. Due on due Goal Influenza vaccine. Due on due Goal Influenza vaccine. Due on due Goal Depression scree ruperto. Due on due Goal Td vaccine. Due on 17 due Goal Tdap. Due on due Goal Influenza vaccine. Due on due Goal Tdap. Due on due Goal Td vaccine. Due on 16 due Goal Depression scree ruperto. Due on due Goal Tdap. Due on due Goal Depression scree ruperto. Due on due Goal Td vaccine. Due on 16 due Goal Influenza vaccine. Due on due Goal Td vaccine. Due on 16 due Goal Influenza vaccine. Due on due Goal Tdap. Due on due Goal Depression scree ruperto. Due on due Goal Td vaccine. Due on 16 due Goal Depression scree ruperto. Due on due Goal Tdap. Due on due Goal Tdap. Due on due Goal Depression scree ruperto. Due on due Goal Td vaccine. Due on 16 due Goal Depression scree ruperto. Due on due Goal Td vaccine. Due on 16 due Goal Tdap. Due on due Goal Pap/HPV testing. Due on due Goal Td vaccine. Due on 16 due Goal Tdap. Due on due Goal Pap/HPV testing. Due on due Goal Depression scree ruperto. Due on due Referral Ordered: Neurology (related to Dizziness) ordered Referral Ordered: Referrals: Neurology. Evaluate and treat ordered Referral Referred To: [facility] [address] [place], [address] [phone] Ordered: Referrals: Neurology. [facility]. Evaluate and treat ordered Referral Ordered: Surgery (related to Other hemorrhoids) ordered Referral Ordered: Nephrology (related to Dizziness) ordered Referral Referred To: Vlad Rojas MD [address] [facility] [address] [place], [address] [phone] Ordered: Referrals: Nephrology. Vlad Rojas MD. Evaluate and treat ordered Referral Ordered: Referrals: Nephrology. Evaluate and treat ordered Referral Referred To: Abdifatah Faith MD [address] [facility], [address] [place], [place], [id number] [phone] Ordered: Referrals: Surgery. Abdifatah Faith MD. Evaluate and treat ordered Referral Ordered: Referrals: Surgery. Evaluate and treat ordered Referral Ordered: Psychiatry (related to Depression) ordered Referral Referred To: [facility] [address] [facility] [address] [place], [address] [phone] Ordered: Referrals: Psychiatry. [facility]. Evaluate and treat ordered Referral Ordered: Referrals: Psychiatry. Evaluate and treat ordered Referral Ordered: Seb Freedman -Otolaryngology (related to Encntr for exam of ears and hearing w oth abnormal findings) ordered Referral Ordered: Pulmonology (related to Sleep apnea) ordered Referral Ordered: Otolaryngology (related to Encntr for exam of ears and hearing w oth abnormal findings) ordered Referral Ordered: Physical Medicine and Rehabilitation (related to Back pain) ordered Referral Referred To: [facility] [address] [place], [place], [id number] [phone] Ordered: Referrals: Physical Medicine and Rehabilitation. [facility]. Evaluate and treat ordered Referral Referred To: Seb Freedman [address] [facility] [address] [place], [place], [id number] [phone] Ordered: Referrals: Otolaryngology. Seb Freedman. Evaluate and treat ordered Referral Referred To: Manny Bryant [address] [place], [address] [phone] Ordered: Referrals: Pulmonology. Manny Bryant. Evaluate and treat ordered Referral Referred To: [facility] [address] [facility] [address] [place], [place], [id number] [phone] Ordered: Referrals: Otolaryngology. [facility]. Evaluate and treat ordered Referral Ordered: Referrals: Pulmonology. Evaluate and treat ordered Referral Ordered: Referrals: Otolaryngology. Evaluate and treat ordered Referral Ordered: Dermatology (related to Nonscarring hair loss, unspecified) ordered Referral Ordered: Neurology (related to Benign neoplasm of pituitary gland) ordered Referral Ordered: Mammo Screen Bilateral 2 View Darinel ordered Referral Ordered: Referrals: Dermatology. Evaluate and treat ordered Referral Ordered: Gynecology (related to Dysmenorrhea) ordered Referral Ordered: Neurology (related to Unspecified convulsions) ordered Referral Referred To: [facility] [address] [place], [address] [phone] Ordered: Referrals: Obstetrics and Gynecology. [facility]. Evaluate and treat ordered Referral Ordered: Referrals: Gynecology. Evaluate and treat ordered Referral Referred To: [facility] [address] [place], [address] [phone] Ordered: Referrals: Neurology. [facility] [address] Evaluate and treat ordered Referral Referred To: Benjie Logan MD [address] [facility], [address] [place], [address] [phone] Ordered: Referrals: Cardiology. Benjie Logan MD. Follow-up and Treat ordered Referral Ordered: Dermatology (related to Rash) ordered Referral Referred To: [facility] [address] [facility] [place], [address] [phone] Ordered: Referrals: Dermatology. [facility]. Evaluate and treat ordered Referral Ordered: Referrals: Dermatology Appointment date/timeframe: Today ordered Referral Ordered: Gastroenterology (related to Personal history of colonic polyps) ordered Referral Ordered: Rheumatology (related to Fibromyalgia) ordered Referral Ordered: MAMMOGRAM, SCREENING ordered Referral Ordered: Referrals: Gastroenterology. Evaluate and treat ordered Referral Ordered: Pain Medicine (related to Fibromyalgia) ordered Referral Referred To: [facility] [address] [place], [address] [phone] Ordered: Referrals: Pain Medicine. [facility]. Evaluate and treat ordered Referral Ordered: Referrals: Pain Medicine. Evaluate and treat ordered Referral Ordered: MRI NECK SPINE W/O DYE ordered Referral Ordered: X-RAY EXAM OF NECK SPINE, CERVICAL 4 OR 5 VIEWS ordered Referral Ordered: Referrals: Physical Medicine and Rehabilitation. Evaluate and treat ordered Referral Referred To: [facility] [address] [address] [facility],[address] [place], [address] [phone] Ordered: Referrals: Physical Medicine and Rehabilitation. [facility]. Evaluate and treat ordered Referral Ordered: Gastroenterology (related to Personal history of colonic polyps) ordered Referral Ordered: John Lerma MD (related to Fibromyalgia) ordered Referral Ordered: Rheumatology (related to Fibromyalgia) ordered Referral Ordered: Neurology (related to Benign neoplasm of pituitary gland) ordered Referral Referred To: John Lerma MD [address] [place], [address] [phone] Ordered: Referrals: Rheumatology. John Lerma MD. Evaluate and treat ordered Referral Ordered: Referrals: Neurology ordered Referral Ordered: MRI BRAIN W/O DYE ordered Referral Ordered: Referrals: Rheumatology. Evaluate and treat ordered Referral Referred To: John Lerma MD [address] [place], [address] [phone] Ordered: Referrals: John Lerma MD. Evaluate and treat ordered Referral Ordered: Referrals: Gastroenterology ordered Referral Ordered: X-RAY EXAM OF KNEE, 1 OR 2 VIEWS Bilateral ordered Referral Referred To: [facility] [address] [facility] [address] [place], [address] [phone] Ordered: Referrals: Gastroenterology. [facility]. Evaluate and treat ordered Referral Referred To: [facility] [address] [place], [address] [phone] Ordered: Referrals: Neurology. [facility]. Evaluate and treat ordered Referral Ordered: Cardiology (related to Bradycardia) ordered Referral Ordered: Referrals: Cardiology. Evaluate and treat ordered Referral Referred To: Benjie Logan MD [address] [facility],[address] [place], [address] [phone] Ordered: Referrals: Cardiology. Benjie Logan MD. Evaluate and treat ordered Referral Ordered: US EXAM, PELVIC, COMPLETE ordered Referral Referred To: [facility] [address] [place], [address] [phone] Ordered: Referrals: Diagnostic Radiology. [facility]. Diagnostic testing ordered Nutrition Recommendation Feeding regime c ompleted Nutrition Recommendation Feeding regime c ompleted Nutrition Recommendation Feeding regime c ompleted History Of Present Illness Encounter Date Complaint History Of Prese nt Illness lab result pt is here for l ab resultLDL and triglyceride is elevated, lifestyle modification discussed. hypertension Pertinent negati ves include chest pain, claudication, fatigue and hematuria. hyperlipidemia Pertinent negati ves include chest pain, claudication and hematuria. hyperlipidemia Pertinent negati ves include chest pain, claudication and hematuria. seizure Additional infor mation: appt with neurology next month. Hearing loss Recently seen by ENT for hearing loss and dizziness. She is schedule to have more workup hypertension Pertinent negati ves include chest pain, claudication, fatigue and hematuria. hemorroids pt was referred to GI dizziness Additional infor mation: advised to schedule appt with neurology. pituitary tumor pt referred to n eurology again lab review pt is here for l ab review. physical pituitary adenoma Pt is here for referral to neurology fibromyalgia Additional infor mation: pt was seen by rheumatology. chronic condition pt is here for chronic condition followup pap result pt is here for p ap result lab result results are not back. ER followup Pt is here for v aginitis, she went to ER and was treated for vaginitis her symptoms have not resolved. She is here for followup, She is not uptodate with her pap and it was also done today. uri The patient pres ents with chills. The patient does not present with headache or lymphadenopathy. MRI results Pt is here for M RI results pituitary tumor She had MRI done , I donot have the records. Neck pain Additional infor mation: x-ray wnl, no responding to physical therapy, tramadol and gabapentin and MRI cervical spine and referred to pain management. lab result Pt is here for l ab results Neck pain Pertinent negati ves include bladder dysfunction not spinal related, bladder incontinence, bladder retention and bowel dysfunction not spinal related. bacterial vaginits pt was recent ly treated for vaginitis at a local ER. Follow Up of coldnes s and pain in legs The symptoms began 1 year ago. The symptoms are reported as being severe. The symptoms occur randomly. The location is B/L legs. Aggravating factors include unknown. Relieving factors include nothing. She states the symptoms are chronic and are uncontrolled. Patient states she was told to come in for additional tests for the coldness and pain in her legs. No additional testing is present in the chart Follow Up of bradycardia Was ref erred to cardiology, never received a call to make an appt or a letter with referral information lab result Pt prolactin lev el is wnl, pt x-ray knee showed OA, she was referred for physical therapy and she has appt with rheumatology for her fibromyalgia. Her US pevlis is wnl. hypertension Pertinent negati ves include chest pain, claudication, confusion, diaphoresis, dyspnea and epistaxis. Functional Status Date Functional Assessmen t No Information Instructions Date Instruction Additional Infor laurence pt is going to see n eurology next week, she had to reschedule her appt again. Related to Benign neoplasm of pituitary gland Lifestyle modificati on discussed.Encoraged daily exercise atleast 45 minutes 5 days a weekPortion control and low calorie diet Related to Hyperlipidemia, unspecified Advised low salt tLifestyle modification discussed.Keep log of blood pressure.Exercise and low caloried diet discussed. Related to Essential (primary) hypertension Lifestyle education regarding di et Related to Body mass index (BMI) 37.0-37.9, adult Giving encouragement to exercise Related to Body mass index (BMI) 37.0-37.9, adult Lifestyle modificati on discussed.Encoraged daily exercise atleast 45 minutes 5 days a weekPortion control and low calorie diet Related to Hyperlipidemia, unspecified Advised low salt tLifestyle modification discussed.Keep log of blood pressure.Exercise and low caloried diet discussed. Related to Essential (primary) hypertension Please see HPI Related to Heari ng loss please see HPI Related to Dizzi ness Giving encouragement to exercise Related to Body mass index (BMI) 37.0-37.9, adult Lifestyle education regarding di et Related to Body mass index (BMI) 37.0-37.9, adult she has been referre d to neurology, she didnot go as it was in drain and she has car problem Related to Benign neoplasm of pituitary gland Lifestyle education regarding di et Related to Body mass index (BMI) 40.0-44.9, adult Giving encouragement to exercise Related to Body mass index (BMI) 40.0-44.9, adult Mild ear pain, no in fection, advised to take ibuprofen. Related to Otalgia printed copy of refe rral ENT given to patient. Related to Hearing loss printed copy of pulm onary referral given to patient. Related to Sleep apnea Pt goes to pain management. Rela kallie to Fibromyalgia Lifestyle education regarding di et Related to Body mass index (BMI) 37.0-37.9, adult Giving encouragement to exercise Related to Body mass index (BMI) 37.0-37.9, adult Lifestyle education regarding di et Related to Body mass index (BMI) 37.0-37.9, adult Giving encouragement to exercise Related to Body mass index (BMI) 37.0-37.9, adult pt recently had colonsocopy done . Related to Personal history of colonic polyps Referred to neurolog y again, she was not able to see the neurology and the last referral . Related to Unspecified convulsions Advised low salt tLifestyle modification discussed.Keep log of blood pressure.Exercise and low caloried diet discussed. Related to Essential (primary) hypertension Stable, continue to follow. Non-homicidal and non-suicidal Related to Major depressive disorder, single episode, unspecified Lifestyle modificati on discussed.Encoraged daily exercise atleast 45 minutes 5 days a weekPortion control and low calorie diet Related to Hyperlipidemia, unspecified pt was seen by rheumatology Rela kallie to Fibromyalgia Giving encouragement to exercise Related to Body mass index (BMI) 37.0-37.9, adult Lifestyle education regarding di et Related to Body mass index (BMI) 37.0-37.9, adult pt has appt with yolanda de la rosa next Related to Unspecified convulsions Advised low salt tLifestyle modification discussed.Keep log of blood pressure.Exercise and low caloried diet discussed. Related to Essential (primary) hypertension pt has appt with yolanda de la rosa next Related to Benign neoplasm of pituitary gland Lifestyle education regarding di et Related to Body mass index (BMI) 37.0-37.9, adult Giving encouragement to exercise Related to Body mass index (BMI) 37.0-37.9, adult Not enough cells, re peat Pap in two weeks Related to Encounter for screening for malignant neoplasm of cervix Lifestyle education regarding di et Related to Body mass index (BMI) 37.0-37.9, adult Giving encouragement to exercise Related to Body mass index (BMI) 37.0-37.9, adult pt started on meloxicam Related to Dysmenorrhea Giving encouragement to exercise Related to Body mass index (BMI) 37.0-37.9, adult Lifestyle education regarding di et Related to Body mass index (BMI) 37.0-37.9, adult pt has hair loss and goes to dermatologyPt would like to go to the same dermatology Related to Rash Lifestyle education regarding di et Related to Body mass index (BMI) 37.0-37.9, adult Giving encouragement to exercise Related to Body mass index (BMI) 37.0-37.9, adult Advised to increase fluid intakeGargle with luke warm waterTake meds as prescribed.Rest Related to Acute respiratory infection Lifestyle education regarding di et Related to Body mass index (BMI) 37.0-37.9, adult Giving encouragement to exercise Related to Body mass index (BMI) 37.0-37.9, adult Please see above. Related to Uns pecified convulsions Stable, continue to follow. Non-homicidal and non-suicidal Related to Major depressive disorder, single episode, unspecified Advised low salt tLifestyle modification discussed.Keep log of blood pressure.Exercise and low caloried diet discussed. Related to Essential (primary) hypertension Lifestyle modificati on discussed along with low calorie diet and regular exercise. Related to Abnormal glucose MRI brain discussed with patient, it didnot show pituitary lesion but ICA lesion, she had appoint with neurology last week but she was late for her appt. She has another appt scheduled on december 23 as per patient. Related to Benign neoplasm of pituitary gland Lifestyle education regarding di et Related to Body mass index (BMI) 37.0-37.9, adult Giving encouragement to exercise Related to Body mass index (BMI) 37.0-37.9, adult advised to take sunny min D 2000 units po daily Related to Vitamin D deficiency Stable, continue to follow. Non-homicidal and non-suicidal Related to Depression MRI shows meningioma , she has appt with neurology next month Related to Benign neoplasm of pituitary gland Pt goes to rheumatology Related to Fibromyalgia She was recently edison luated by cardiology and she is asymptomatic, continue to follow Related to Bradycardia Pt is going to MRI b rain today and has appt with neurology next week. Related to Benign neoplasm of pituitary gland Please see HPI All q uestion answered to the best of my ability.Pt verbalized understanding. Related to Pain, unspecified Dietary needs education Related to Body mass index (BMI) 36.0-36.9, adult Giving encouragement to exercise Related to Body mass index (BMI) 36.0-36.9, adult She woke up with sti ffneck, decrease range of motion due pain. x-ray ordered. started on tramadol 50mg po bid. Related to Pain, unspecified pt was given written copy of the referral given to patient and advised to call and schedule appt. Related to Encounter for oth screening for malignant neoplasm of breast stable, continue to follow. Rela kallie to Migraine Pt is stable, continue to follow Related to Depression Pt was referred to n eurology, she had appt yesterday but she didnot go and she didnot reschedule appt. Related to Benign neoplasm of pituitary gland Lifestyle modificati on discussed along with low calorie diet and regular exercise. Related to Abnormal glucose Lifestyle modificati on discussed.Encoraged daily exercise atleast 45 minutes 5 days a weekPortion control and low calorie diet Related to Hyperlipidemia No recent zay, lincoln granadosised to schedule appt with neurology Related to Unspecified convulsions Advised low salt tLifestyle modification discussed.Keep log of blood pressure.Exercise and low caloried diet discussed. Related to Essential (primary) hypertension pt was advised to sc hedule appt with neurology as soon as possible. Related to Benign neoplasm of pituitary gland Exercise promotion: stretching R elated to Body mass index (BMI) 37.0-37.9, adult Increase gabapentin to 600 mg 2 x day.See neurology and rheumatology as scheduled. Related to Radiculopathy, lumbar region Given of copy of car diology referral. Related to Bradycardia Check labs today. Seferino palmer has referral to neurology. Related to Paresthesia of skin Patient has appt with PT next we ek. Related to Pain in unspecified knee x-ray shows OA, refe rrred to physical therapy Related to Pain in unspecified knee she has appt with GI Related to Personal history of colonic polyps she has appt with neurology Rela kallie to Benign neoplasm of pituitary gland stable, contineu to follow Relat ed to Major depressive disorder, single episode, unspecified controlled. Advised low salt dietLifestyle modification discussed.Keep log of blood pressure.Exercise and low caloried diet discussed. Related to Essential (primary) hypertension she has appt with neurology Rela kallie to Unspecified convulsions she has appt with rheumatology R elated to Fibromyalgia Exercise promotion: stretching R elated to Body mass index (BMI) 39.0-39.9, adult Dietary needs education Related to Body mass index (BMI) 39.0-39.9, adult lifestyle modification discussed Related to Abnormal glucose stable on meds. Related to Major depressive disorder, single episode, unspecified Advised low salt tLifestyle modification discussed.Keep log of blood pressure.Exercise and low caloried diet discussed. Related to Essential (primary) hypertension pt referred to neurology Related to Unspecified convulsions started on atorvasta tin 10mg po daily Related to Hyperlipidemia Weight monitoring Related to Bod y mass index (BMI) 39.0-39.9, adult pap next visit. Related to Encou nter for screening for malignant neoplasm of cervix Lifestyle modificati on discussed along with low calorie diet and regular exercise. Related to Abnormal glucose trazadone 50 Related to Depre ssion lisioprol 5mg po roddy ly Advised low salt dietLifestyle modification discussed.Keep log of blood pressure.Exercise and low caloried diet discussed. Related to Essential (primary) hypertension Lifestyle modificati on discussed along with low calorie diet and regular exercise. Related to Obesity US pelvis Related to Ovari an cyst She was referred to neurology Re lated to Seizure she was started on g abapentin 300mg po bid. Related to Fibromyalgia pt was [facility] Related to Migraine Exercise promotion: stretching R elated to Body mass index (BMI) 39.0-39.9, adult Assessments Type Assessment Date No Information Patient Care Teams Name Effective Dates (start - stop) Status Members No Information
--- OUTSIDE RECORDS SUMMARY | 2025-03-04 10:19 | XMS_ITS | Clinical Summary ---
Author Organization [facility] Address [address] [place] [address] Phone Care Team Providers Care Librarian Assistant Name Role Phone Gabbie Cisneros MD Primary Care Provider [phone] Allergies Active Allergy Reactions Criticality Noted Date [...] s of breath High 10/26/2017 Shellfish Allergy [place] 03/24/2024 Watermelon Shortness of breath High 07/30/2022 Medications albuterol 2.5 mg /3 mL (0.083 %) nebulizer solution Take 1 Vial by nebulization every 6 hours as needed for Wheezing. Active albuterol HFA (PROAIR HFA ; PROVENTIL HFA ; VENTOLIN HFA) 90 mcg/actuation inhaler Inhale 2 Puffs into the lungs every 6 hours as needed for Cough, Wheezing or Shortness of Breath for up to 90 days. Active clbzc-T-hasndxdn idase (BEANO ORAL) UCUFT-G-INRNJPC SIDASE (BEANO) TAB : Take 1 tablet by mouth 4 times daily for 120 doses. Active amitriptyline (ELAVIL) 25 mg tablet Take 1 Tab by mouth at bedtime. Active aspirin 81 mg chewable tablet Take 81 mg by mouth daily. Active atorvastatin (LIPITOR) 10 mg tablet Take 10 mg by mouth daily. Active blood-glucose meter kit Active budesonide-formo teroL (SYMBICORT) 160-4.5 mcg/actuation inhaler Inhale 2 Puffs into the lungs 2 times daily. Active calcium carbonate-vitami n D (Oyster Shell Calcium-Vit D3) 500 mg-5 mcg (200 unit) per tablet TAKE 1 TABLET BY MOUTH DAILY Active cholecalciferol (VITAMIN D-3) 1,250 mcg (50,000 unit) capsule Take 1 Capsule by mouth once a week. Active cyclobenzaprine (FLEXERIL) 10 mg tablet Take 10 mg by mouth 3 times daily as needed. Active DULoxetine (Drizalma Sprinkle) 20 mg capsule, delayed rel sprinkle Take 20 mg by mouth 2 times daily. Active epinephrine (EPIPEN 2-YONI INJ) Inject into the muscle. Active ferrous sulfate 325 mg (65 mg elemental iron) tablet Take 1 tablet by mouth daily. Active fluocinolone 0.01 % cream Apply topically 2 times daily. Active fluticasone propion-salmeter oL (ADVAIR HFA) 115-21 mcg/actuation inhaler Inhale 2 Puffs into the lungs 2 times daily for 90 days. Active gabapentin (NEURONTIN) 100 mg capsule Take by mouth 3 times daily. Active glucose blood test strip 1 Strip by In Vitro route 2 times daily. Active hydrocortisone (ANUSOL-HC) 2.5 % rectal cream Apply 1 Inch topically 2 times daily. Active ketoconazole (NIZORAL) 2 % shampoo Apply topically daily as needed. Active ketotifen (ZADITOR) 0.025 % ophthalmic solution 1 Drop daily. Active loratadine (CLARITIN) 10 mg tablet Take 10 mg by mouth daily. Active magnesium oxide (MAG-OX) 400 mg (241.3 elemental magnesium) tablet Take 1 Tab by mouth daily. Active mometasone (ASMANEX) 110 mcg/ actuation (30) inhaler Inhale into the lungs. Active multivit-min/iro n/FA/vit K/lut (MULTIVITAMIN WOMEN 50 PLUS ORAL) TAKE 1 TABLET BY MOUTH DAILY Active ondansetron (ZOFRAN) 8 mg tablet Take 1 Tab by mouth every 8 hours as needed for Nausea. Active OneTouch UltraSoft Lancets 2 times daily. Activ e topiramate (TOPAMAX) 100 mg tablet TAKE 1 TABLET BY MOUTH DAILY Active triamcinolone (KENALOG) 0.5 % cream Apply topically 3 times daily. Active verapamil SR (CALAN-SR) 120 mg CR tablet Take 1 Tab by mouth at bedtime. Active vitamin A 3,000 mcg (10,000 unit) capsule TAKE ONE CAPSULE EVERY MORNING Active buPROPion SR (WELLBUTRIN SR) 150 mg 12 hr tablet 150 mg 2 times daily. Active pantoprazole (PROTONIX) 40 mg EC tablet TAKE 1 TABLET BY MOUTH DAILY 90 tablet 3 Active albuterol HFA (Ventolin HFA) 90 mcg/actuation inhaler Inhale 2 puffs by mouth every 6 (six) hours if needed for wheezing. 1 each 1 Active sucralfate (CARAFATE) 100 mg/mL suspension Take 10 mL (1 g total) by mouth 4 (four) times a day. 1200 mL 2 025 2024 Active sucralfate (Carafate) 100 mg/mL suspensionIndica tions:Acute gastrojejunal ulcer without hemorrhage or perforation,Albert atric surgery status TAKE 10ml's BY MOUTH FOUR TIMES DAILY, shake WELL 1200 mL 3 025 2024 Discontinued semaglutide (Ozempic) 0.25 mg or 0.5 mg (2 mg/3 mL) injection pen Inject 0.25 mg under the skin every 7 (seven) days for 4 doses. 1.5 mL 025 2024 semaglutide (Wegovy) 0.25 mg/0.5 mL injection pen Inject 0.25 mg under the skin every 7 (seven) days. 2 mL 025 2024 sucralfate (CARAFATE) 100 mg/mL suspensionIndica tions:Acute gastrojejunal ulcer without hemorrhage or perforation,Albert atric surgery status TAKE 10ml's BY MOUTH FOUR TIMES DAILY, shake WELL 1200 mL 3 025 2024 Discontinued(D ose adjustment) Active Problems Problem Noted Date Diagnosed Date Anemia 06/07/2024 Controlled diabetes mellitus type II without complication (CMS/HCC V24, CMS/HCC V28) 06/07/2024 Depression with anxiety 06/07/2024 Fibromyalgia 06/07/2024 Hypertension 06/07/2024 Class 1 obesity due to exces s calories with serious comorbidity and body mass index (BMI) of 33.0 to 33.9 in adult 06/07/2024 Severely overweight 12/03/2019 Intestinal malabsorption following gastrectomy 0 09/03/2019 Migraine with aura 03/12/2019 Spondylosis of lumbar region without myelopathy or radiculopathy 01/24/2018 Pituitary microadenoma (CMS/HCC V24, CMS/HCC V28 ) 10/26/2017 Encounters Date Type Department Care Team Description 01/16/2025 Telephone Bariatric Surgery - [address] [place] [address] Will Verduzco MD Advice Only (New script for Wegovy) from Last 3 Months Immunizations Name Administration Dates Next Due BuildMyMove (ages 12 & older) DEISI S-CoV-2 COVID-19, mRNA, LNP-S, adelina-sucrose, preservative free 11/12/2021 Pfizer SARS-CoV-2 COVID-19, mRNA, LNP-S, preservative free 01/01/2021,12/11/2020 Pneumococcal polysaccharide 23 valent (Pneumovax 23) 2yo and older 02/05/2018 Medical History Medical History Date Comments Asthma DX:Asthma Seizure ([facility] V24, [facility] V28) DX:Seizure ([facility]) Hypoglycemia DX:Hypoglycemia Social History Tobacco [...] 84 07/16/2024 3:32 PM EST Temperature 36.7 C (98.1 F) 07/16/2024 3:32 PM EST Respiratory Rate 18 07/16/2024 3:32 PM EST Oxygen Saturation 99% 07/16/2024 3:32 PM EST Inhaled Oxygen Concentration - - Weight 77.6 kg (171 lb) 07/16/2024 3:32 PM EST Height 160 cm (5' 3 ) 07/16/2024 3:32 PM EST Body Mass Index 30.29 07/16/2024 3:32 PM EST Plan of Treatment Upcoming Encounters Date Type Department Care Team (Late st Contact Info) Description 05/01/2025 1:45 PM EDT Office Visit Bariatric Surgery - [place] [address] [address] Will Verduzco MD [address] [address] Health Maintenance Due Date Last Done Comments [...] 2024 11/12/2021, 01/01/2021, 12/11/2020 Influenza Vaccine (#1) 2025 , 05/11/2022, 07/02/2021, Additional history exists Depression Screening [...] Health Maintenance Results * Hemoglobin A1c (09/26/2023) [facility] Hemoglobin A1C 5.1 <=6.5 % Blood Venous blood specimen / Unknown Result [facility] Provider LAB BLOOD ORDERABLES Awa l Result * Annual BMP Blood Test (08/25/2023) [facility] Annual BMP Blood Test Abstracted Result [facility] Provider HEALTH MAINTENANCE Final Result * Colonoscopy (05/13/2020) [facility] Colonoscopy Abstracted, No interpretation Anatomical Region Laterality Modality Other Result [facility] Provider HEALTH MAINTENANCE Final Result * Cervical Cancer Screening: HPV (04/09/2018) [facility] Cervical Cancer Screening: HPV Abstracted ,Negative Result [facility] Provider HEALTH MAINTENANCE Final Result * Urine Albumin Creatinine Ratio (12/06/2017) [facility] Urine Albumin Creatinine Ratio Abstracted us Historical Provider HEALTH MAINTENANCE Final Result * Lipid panel (12/06/2017) LDL/HDL Ratio 3 0 - 4 Triglycerides 140 0 - 150 mg/dL Cholesterol 190 0 - 200 mg/dL HDL 75 >=40 mg/dL LDL Cholesterol 87 0 - 100 mg/dL Blood Venous blood specimen / Unknown Historical Provider LAB BLOOD ORDERABLES Awa l Result from Last 3 Months or Most Recently Relevant to Health Maintenance Insurance [place] - [place] Care Teams Librarian Assistant Relationship Specialty Start Date End Date Gabbie Cisneros MD [address] [place] [address] PCP - General 11/17/18
--- OUTSIDE RECORDS SUMMARY | 2025-03-04 10:19 | XMS_ITS | Data Portability ---
Author Organization [place] - [facility], Allergy Address [address] [address] Care Team Providers Care Food Service Attendant Name Role Phone RAÚL GOLDSMITH Primary Care Provider Assessment No assessment recorded. Plan of Treatment Reminders Order Date Submit Date Provider Last Modified By Organization Details Last Modified Time Details Appointments None recorded. Lab None recorded. Referral None recorded. Procedures None recorded. Surgeries None recorded. Imaging None recorded. Medication Orders clotrimaz ole-betam ethasone 1 %-0.05 % topical cream 025 025 [id number], [address] [place], [place], [id number], 10:09:05 Patient TargetsNo targets recorded. Patient InstructionsNo instructions recorded. Reason for Referral None Reported. Results Created Date Observation Date Name Description Value Unit Range Abnormal Flag Note LastModifiedBy Organization Detail LastModifiedTime 10/15/19 audio gram No observ ation record ed. BARCODE Not Available 2024 10:40:17 10/15/1907/29/2024 CT, maxil lofac ial, w/o contr ast No observ ation record ed. [email or web address] Not Available 09/22 16:43:45 10/15/1907/29/2024 CT, maxil lofac ial, w/o contr ast No observ ation record ed. [email or web address] Not Available 09/22 16:06:00 Result Notes None recorded. Problems Name Problem SNOMED Code Status Onset Date Resolution Date Notes Provider Name and Address Organization Details Recorded Time Abnormal auditory perceptio n 47167442 Active 2019 Other abnormal auditory perceptio ns, bilateral ; Note: Date Diagnosed : 0 10:38 AM (H93.293) Not Available [facility] 4 02:13:44 Dysphonia 62080325 Active 2019 Hoarsenes s; Note: Date Diagnosed : 0 9:46 AM (R49.0) Not Available [facility] 4 02:14:45 Dizziness and giddiness 956838107 Active 2019 Dizziness and giddiness ; Note: Date Diagnosed : 0 10:38 AM (R42) Not Available [facility] 4 02:13:41 Bilateral tinnitus 33513216505 02 Active 2024 JUNIOR HUBBARD MA, CCC-A [address] [facility],[place] [facility], [place], [address] , [place] - [facility] 5 09:44:32 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 Procedures Surgical History Date Name Laterality Status Provider Name and Address Organization Details Recorded Time 10/15/2024 Air & Speech Audio with Tymps - 12214, 62615 & 09751 completed JUNIOR HUBBARD MA, CCC-A [address] [facility], [place], [address], [place] - [facility] 10/15/2024 09:44:42 Imaging Results None recorded. Procedure Notes None recorded. Medical Equipment None Reported. Allergies Allergen ID Allergen Name Allergen Category Reaction Reaction Severity Criticality Documentation Date Start Date Code Code System Note Provider Name and Address Organization Details Recorded Time 13255 codeine medicatio n other Not available Not available 01/02/2024 2670 RxNorm React ion: other react ion, Unkno wn; Not Available [facility] 4 00:50:58 30148 morphine medicatio n other Not available Not available 01/02/2024 7052 RxNorm React ion: other react ion, Unkno wn; Not Available [facility] 4 00:51:04 94230 Iodinated contrast media (substanc e) medicatio n other Not available Not available 01/02/2024 78356 2003 SNOMED React ion: other react ion, Unkno wn; Not Available [facility] 4 00:51:09 Medications Name Sig Start [...] topical cream 10/15 completed Medicati on ID: [id number] B rand Name: triamcin olone acetonid e [...] mg tablet 10/15 completed Medicati on ID: [id number] B rand Name: sumatrip napier succinat e [...] mg tablet 10/15 completed Medicati on ID: [id number] B rand Name: amitript yline Se nd [...] mg capsule 10/15 completed Medicati on ID: [id number] B rand Name: gabapent in Send Method: [...] elayed release 10/15 completed Medicati on ID: [id number] B rand Name: duloxeti ne Send Method: [...] chewable tablet 10/15 completed Medicati on ID: [id number] B rand Name: Vitamin D3 Send Method: E-Prescr ibed Sub s Allowed: subs [place] Speci al Instruct ion: MANAGER OF SECURITY 2 TS PO QD Medic ationGen ericName : Vitamin D3 Not Available Not Available Not Available OptiChamb er Lori [facility] with Large Mask USE DIRECTED TWICE [...] Details Last Updated DateTime 10/15/2024 160.02 cm 44193.3 [address] Cynthia Benítez CT - [facility] 10/15/2024 09:51:15 Social History None recorded. Functional [...] SNOMED-CT Code Diagnosis ICD10 Code Diagnosis Note 06126 NEPTALI PENN MD [facility] of [address] [place] [address] 10/15/2024 09:03:00 10/15/2024 10:08:13 Bilateral tinnitus 6072521506 102 H93.13 Audiologic al evaluation results:Ri ght [...] caffeine, salty meals and NSAIDs. Dermal mycosis 35377612 B36.9 The skin of the left external [...] reduce the risk of recurrence . Headache 17731837 R51.9 Patient reporting facial headaches between her [...] reported nasal dryness. Unsteady when walking 22 557835 R26.89 Patient with balance disturbanc e which [...] she continue to work with her orthopedic plant technical specialist in this regard. Health Concerns Section Related Observation LastModified by Organization Detai ls LastModified Time None Recorded Concern Status LastModified by Organization Details LastModified Time None Recorded Advance Directives Directive None Recorded Payers Insurance Date Sequence Insurance Name Policy Number Policy Farrell Covered Member ID Farrell Member ID Guarantor Name 10/15/2024 1 [place] [facility] Radha Fernandez [id number] Radha Fernandez Notes Date Note Type Note [...] of no clinical significance NEPTALI PENN MD [address] [place] [address], [place], [address], [facility] - [facility] 10/15/2024 10:11:20 OBGyn Episode No OBEpisode recorded.
--- OUTSIDE RECORDS SUMMARY | 2025-03-04 10:19 | XMS_ITS | Encounter Summary ---
Author Organization [employer] Address [address] [place] [address] Care Team Providers Care Linux Devops Engineer Name Role Phone Gabbie Cisneros MD Primary Care Provider [phone] Encounter Details Date Type Department Care Team ([facility] st Contact Info) Description 10/16/2023 Telephone [facility] [address] [place], [place] [phone] Gabbie Cisneros MD [address] [place] [address] Social History Tobacco Use Types Packs/Day Years [...] Care Team (Late st Contact Info) Description 03/14/2025 2:00 PM EDT Office Visit [facility] [address] [place], [place] [phone] Gabbie Cisneros MD [address] [place] [address] documented as of this encounter Goals Goal [...] documented as of this encounter Care Teams Linux Devops Engineer Relationship Specialty Start Date End Date Gabbie Cisneros MD [address] [place] [id number] PCP - General Family Medicine 05/02/18 Saloni Kaminski Maintenance ManagerHazmat Truck Driver 05/19/23 Rosemarie Palmer [address] [place] [address] Nurse Practitioner Neurology 09/18/23 Milad Mcfarland Maintenance ManagerHazmat Truck Driver 10/01/24 documented as of this encounter
--- OUTSIDE RECORDS SUMMARY | 2025-03-04 10:19 | XMS_ITS | Encounter Summary ---
Author Organization [facility] Address [address] [place] [address] Care Team Providers Care Lawn Mower Name Role Phone Amelia Gabbie Primary Care Provider Unavailabl e Reason for Visit * Reason Onset Date Comments Pain, General 06/21/2019 Encounter Details Date Type Department Care Team Description 06/21/2019 Telephone General Surgery - Secretary [address] [facility] [address] [place] [address] Will Verduzco MD [address] [place] [address] [address] [place] [address] Pain, General Social History Tobacco Use Types Packs/Day Years [...] encounter Miscellaneous Notes * Telephone Encounter - Will Verduzco MD - 06/24/2019 3:34 PM EST Talk to the daughter over the phone. She is very upset because the mother is having pain. I explained to her that she has had to CT scan over the weekend in [address] scans were negative for complications. The other option is to do an exploratory laparoscopy, which carries complications and causes incisional pain on its own. The patient will be seen in the emergency room. She may need to be admitted for pain control and observation. * Telephone Encounter - Leslie Emery - 06/24/2019 3:24 PM EST Daughter Daniel is calling, she would like you to call her / mother at [phone] states they have been waiting for you to call her back regarding Labs and moms pain. Please call. * Telephone Encounter - Leslie Emery - 06/24/2019 2:16 PM EST Daughter of Radha called to say they are bringing Radha to the [facility] ER due to severe pain in herabdomen. documented in this encounter Plan of Treatment Not on file documented as of this encounter Visit Diagnoses Not on filedocumented in this encounter Care Teams Lawn Mower Relationship Specialty Start Date End Date Gabbie Cisneros PCP - General Family Practice 12/27/18 documented as of this encounter
--- OUTSIDE RECORDS SUMMARY | 2025-03-04 10:20 | XMS_ITS | Clinical Summary ---
Author Organization [facility] Address [address] [place] [address] Care Team Providers Care Bank Vault Clerk Name Role Phone Gabbie Cisneros Primary Care Provider Allergies Active Allergy Reactions Criticality Noted Date [...] 1 tablet by mouth daily. Active FreeStyle Hilbert Lite meter TEST BLOOD SUGAR DIRECTED 06/24/20 [...] ONE TABLET AT BEDTIME 09/14/19 23 Active vwwjszvulxju-Cv-qi on-minerals tablet Take 1 tablet by mouth. [...] 10/31/2013 Type 2 diabetes mellitus without complication Encounters Date Type Department Care Team Description 01/24/2025 Telephone [facility] [address] [place] [id number] Coppersmith Apprentice: Pao Valdez Telephone Intake, Staff PAC Appt Request - Established from Last 3 Months Family History Medical [...] A1C 03/26/2024 09/26/2023, 09/21, 08/23/2022 COVID-19 Vaccine (4 - 2023-2 5 season) 2024 11/12/2021, 01/01/2021, 12/11/2020 Colon Cancer Screening 08/07/2024 FOBT / Fit Test 08/07/2024 08/07/2023, 07/18/2022 Alcohol/Substance Use Screening 08/21/2024 Depression Screening and Follow-Up 08/21/2024 Social Drivers of Health Gabriela ual Screening 08/21/2024 Basic Metabolic Panel 03/29/2025 03/29/2024 , 01/22/2024, 07/25/2023, Additional history exists Influenza Vaccine (#1) 2025 , 05/11/2022, 07/02/2021, Additional history exists Cervical Cancer Screening 12/11/2026 Pap Smear 12/11/2026 12/12/2023, 04/09/2018 DTaP,Tdap,and Td Vaccines (3 - Td or Tdap) 04/16/2028 04/16/2018, 03/12/2013 RSV Vaccine (60+ years old a nd patients) (1 - 1-dose 75+ series) 2044 Hepatitis B Vaccines Completed 04/15/2014, 12/18/2013, 11/14/2013 Zoster Vaccines Completed 09/10/2020, 07/09/2020 Procedures * Due to [place] [employer] law, this organization might not be sharing negative HIV tests. Procedure Name Priority Date/Time Associated Diagnosis Comments BASIC METABOLIC PANEL Routine 03/29/2024 3:51 PM EDT Pituitary microadenoma HEMOGLOBIN A1C Routine 10/07/2022 2:01 PM EST Type 2 diabetes mellitus without complication, without long-term current use of insulin from Last 3 Months or Most Recently Relevant to Health Maintenance Results * Due to [place] [employer] law, this organization might not be sharing negative HIV tests. * Basic Metabolic Panel (03/29/2024 3:51 PM EDT) NA 141 135 - 145 mmol/L 03/29/2024 5:29 PM EDT [facility] K 4.0 3.5 - 5.3 mmol/L 03/29/2024 5:29 PM EDT [facility] Cl 104 98 - 107 mmol/L 03/29/2024 5:29 PM EDT [facility] CO2 27 24 - 32 mmol/L 03/29/2024 5:29 PM EDT [facility] BUN 11 7 - 23 mg/dL 03/29/2024 5:29 PM EDT [facility] Creatinine 0.65 0.50 - 1.20 mg/dL 03/29/2024 5:29 PM EDT [facility] Glucose 98 65 - 99 mg/dL 03/29/2024 5:29 PM EDT [facility] Calcium 8.7 8.6 - 10.5 mg/dL 03/29/2024 5:29 PM EDT [facility] Anion Gap 10 5 - 15 03/29/2024 5:29 PM EDT [facility] eGFR >90 >=60 mL/min/1. 73m2 03/29/2024 5:29 PM EDT [facility] Comment:The estimated glomer ular [...] Result [facility] [address] [place] [address], * Hemoglobin A1c (10/07/2022 2:01 PM EST) Hemoglobin A1C 4.9 <5.7 % of total Hgb 10/08/2022 6:38 AM EST Attributor Comment: For the purpose of screening for the presence of diabetes: <5.7% Consistent with the absence of diabetes 5.7-6.4% Consistent with increased risk for diabetes (prediabetes) > or =6.5% Consistent with diabetes This assay result is consistent with a decreased risk of diabetes. Currently, no consensus exists regarding use of hemoglobin A1c for diagnosis of diabetes in children. According to [place] Diabetes Association (ADA) guidelines, hemoglobin A1c <7.0% represents optimal control in non- diabetic patients. Different metrics may apply to specific patient populations. Standards of Medical Care in Diabetes(ADA). eAG (MG/DL) 94 mg/dL 10/08/2022 6:38 AM EST Attributor eAG (MMOL/L) 5.2 mmol/L 10/08/2022 6:38 AM Tastemaker Blood Structure of peripheral vein / Unknown Venipuncture / Unknown 10/07/2022 2:01 PM EST 10/07/2022 2:33 PM EST Narrative MICHAEL ROSCOE - 10/08/2022 6:38 AM EST [facility] Received Date:[id number] Zoila Sue NP LAB BLOOD ORDERABLES Final Result [facility] [address] [facility] [address], [place] [address], [place] [phone] [facility] [address] [facility] [address], [place] [address], [place] [phone] from Last 3 Months or Most Recently Relevant to Health Maintenance Insurance [facility] Care Teams Bank Vault Clerk Relationship Specialty Start Date End Date Gabbie Cisneros [address] [place] [id number] PCP - General Family Medicine 06/15/22
--- OUTSIDE RECORDS SUMMARY | 2025-03-04 10:20 | XMS_ITS | Clinical Summary ---
Author Organization [facility] Address [address] [place] [address] Care Team Providers Care Physical Anthropologist Name Role Phone Gabbie Cisneros MD Primary Care Provider [phone] Allergies Active Allergy Reactions Criticality Noted Date Comments Banana 07/30/2022 Codeine 11/17/2018 Iodinated Contrast Media 07/26/2022 Can take with premeds (benadryl and steroid) Morphine 07/26/2022 Nuts 07/30/2022 Shellfish 07/30/2022 [place] 03/24/2024 Watermelon 07/30/2022 Medications Medication Sig Dispensed [...] 65 06/14/2024 1:35 PM EDT Temperature 36.7 C (98.1 F) 06/14/2024 1:35 PM EDT Respiratory Rate 16 06/14/2024 1:35 PM EDT [...] 2025 , 05/11/2022, 07/02/2021, Additional history exists DTap [...] age to complete this topic Care Teams Physical Anthropologist Relationship Specialty Start Date End Date Gabbie Cisneros MD [address] [place] [address] PCP - General Adult Medicine 11/17/18
[2025-03-04 10:56] VITALS: BP 110/86; PULSE 76; O2SAT 98; BMI 31.7
--- NOTE | 2025-03-04 10:56 | MHC.OFFVIS ---
Vital Signs 03/04/25 10:56 Height 5 ft 3 in Weight 179 lb BMI 31.7 BP 110/86 Blood Pressure Location Lt brachial Position Sitting Pulse 76 Pulse Source Pulse Oximeter Pulse Oximetry (%) 98 Oxygen Delivery Method Room Air Intake Visit Reasons: Botox Auxiliary Operator Required: No Accompanied by: Self / Same As Patient Allergies iodine Allergy (Severe, Verified 03/04/25 10:57) Anaphylaxis shellfish derived Allergy (Severe, Verified 03/04/25 10:57) Hives Seasonal Allergies Allergy (Intermediate, Verified 03/04/25 10:57) Watery Eyes Sneezing banana Allergy (Mild, Verified 03/04/25 10:57) Itchy codeine Allergy (Mild, Verified 03/04/25 10:57) Chest Pain morphine Allergy (Mild, Verified 03/04/25 10:57) Chest Pain tree nut Allergy (Mild, Verified 03/04/25 10:57) Itchy watermelon Allergy (Mild, Verified 03/04/25 10:57) Itchy HPI Comments Details: 54y/o female comes for treatment of her cervical dystonia and migraines she reports pain in her forehead and sinuses. she has an appointment with ENT ? Side effects including spread of toxin effect, dysphagia, breathing difficulties , bronchitis etc was discussed in detail and the patient agreed to the procedure.An informed consent was obtained ??? Botulinum toxin type [id number] diluted with 2 cc of normal saline each at a concentration of 25 units in 0.5cc saline. Lot number [id number] expiration 05/2027 ??? Muscles injected Bilateral levator 20 units each Zachariah Splenius 25 units each Bilateral trapezius 30 units each Zachariah temporlis 20 units each Zachariah Zygomaticus 5 units each Total use 200 units She is following up with FND clinic at [facility] for psychogenic seizures ??? [facility] Medical History Greater trochanteric bursitis of both hips Osteoarthritis involving multiple joints on both sides of body Cataract Pituitary abnormality Sleep disorder GERD (gastroesophageal reflux disease) HTN (hypertension) Diabetes Depression Anemia Surgical History Hx of tonsillectomy H/O tubal ligation H/O section H/O gastric bypass H/O laparoscopic adjustable gastric banding Hx of bilateral breast reduction surgery H/O right knee surgery H/O left knee surgery Family History Father Skin cancer Brother Heart disease Brother Cancer Mother Dementia Social History Household Members Other:: daughter Alcohol intake: never Patient Tobacco Use Status: Former Tobacco user Current occupational status: disabled Physical Exam Vital Signs: Last Vital Signs Pulse 76 03/04/25 10:56 BP 110/86 03/04/25 10:56 Pulse Ox 98 03/04/25 10:56 Oxygen Delivery Method Room Air 03/04/25 10:56 BMI result Body Mass Index 31.7 Const General: cooperative and no acute distress Orientation/consciousness: patient oriented x3 HEENT Head: Yes normocephalic Neuro General: patient oriented x3, gait normal and CN's II-XI intact bilaterally Cognition (Neuro): normal cognition Motor exam (neuro): 5/5 motor strength present throughout Office Procedures Botulinum toxin Injection 47560 - Dystonia Procedure code (CPT) selection complete Office Meds onabotulinumtoxinA 200 unit solution for injection Performing Provider: Betzaida Solis MD Performing Location[place] [facility] Administered by: Betzaida Solis MD on 03/04/25 12:33 Dose Route Admin Location Dispensed Lot Number Expiration Date [facility] Change Control Analyst 200 unit subcut 200 units [id number] ALLERGAN/BOTOX Total Dispensed Waste 200 units 0 % Comments: see hpi Assessment & Plan Assessment & Plan (1) Spasmodic torticollis: Code(s): G24.3 - Spasmodic torticollis Category: Medical Plan Patient tolerated the procedure well she will call with any side effect F/u FND clinic Ct sinus Orders: Orders AMB Botulinum toxin Injection Today G24.3 - Spasmodic torticollis Coding Level of Care Code Est Pt Level 1 (36008) Diagnoses Spasmodic torticollis G24.3 CPT Codes Botox Injection - Botox 4: 48790 - Dystonia ([id number])
== END 2025-03-04 11:49 | disposition home or self-care (01) ==
LOC: HO.HSMS 09:40
PROVIDERS: PCP Student in an Organized Health Care Education/Training Program; Visit Provider Psychiatry & Neurology Neurology
DX: G24.3 Spasmodic torticollis (principal)
CPT/HCPCS: 64616

== ENCOUNTER → 2025-03-04 09:39 | Outpatient (BNVA) | payer MEDICAID, SELFPAY | PROVIDERS: PCP Student in an Organized Health Care Education/Training Program; Visit Provider Psychiatry & Neurology Neurology | DX: G24.3 Spasmodic torticollis (principal); M70.62 Trochanteric bursitis, left hip; M70.61 Trochanteric bursitis, right hip; K21.9 Gastro-esophageal reflux disease without esophagitis; I10 Essential (primary) hypertension; E11.9 Type 2 diabetes mellitus without complications; F32.A Depression, unspecified; D64.9 Anemia, unspecified; Z87.891 Personal history of nicotine dependence | CPT/HCPCS: 64616; 99211; J0585 ==

== ENCOUNTER 2025-06-03 10:45 | Outpatient (AMB) | payer MEDICAID, SELFPAY ==
--- NOTE | 2025-06-03 10:49 | A.OFFVIS_ITS ---
Vital Signs 06/03/25 10:50 Height 5 ft 3 in Weight 172 lb 6 oz BMI 30.5 BP 110/74 Blood Pressure Location Rt brachial Position Sitting Pulse 63 Pulse Source Pulse Oximeter Pulse Oximetry (%) 98 Oxygen Delivery Method Room Air Intake Visit Reasons: Botox Intake Note: Botox Souvenir Assembler Required: No Accompanied by: Self / Same As Patient Allergies iodine Allergy (Severe, Verified 06/03/25 10:50) Anaphylaxis shellfish derived Allergy (Severe, Verified 06/03/25 10:50) Hives Seasonal Allergies Allergy (Intermediate, Verified 06/03/25 10:50) Watery Eyes Sneezing banana Allergy (Mild, Verified 06/03/25 10:50) Itchy codeine Allergy (Mild, Verified 06/03/25 10:50) Chest Pain morphine Allergy (Mild, Verified 06/03/25 10:50) Chest Pain tree nut Allergy (Mild, Verified 06/03/25 10:50) Itchy watermelon Allergy (Mild, Verified 06/03/25 10:50) Itchy Medication List - Last Reconciled 06/03/25 by Betzaida Solis MD albuterol sulfate 2.5 mg inhalation Q4-6H PRN albuterol sulfate 90 mcg/actuation (ProAir HFA) 2 puffs inhalation QID amitriptyline 10 - 20 mg (1 - 2 x 10 mg) PO BEDTIME 30 days aripiprazole 20 mg PO BEDTIME aspirin 81 mg PO BEDTIME 30 days atorvastatin (Lipitor) 10 mg PO DAILY [Bilateral carpal tunnel wrist splints Use nightly while sleeping] calcium carbonate-vitamin D3 600 mg-10 mcg (400 unit) 1 tab PO BID celecoxib 200 mg PO BID 90 days cetirizine 10 mg PO DAILY PRN clonazepam 2 mg PO DAILY PRN 30 days clonazepam 2 mg orally for seizure lasting > 2 minutes, may repeat x's 1 and call 911; 30 days clonazepam 2 mg orally . PRN; 2 mg orally for seizure lasting > 2 minutes, may repeat x's 1 and call 911; 30 days duloxetine 30 mg PO QAM esomeprazole magnesium 20 mg PO QAM ferrous fumarate (Ferretts) 325 mg PO DAILY finasteride 5 mg PO DAILY fluocinolone 0.01% topical TID fluticasone propion-salmeterol 115-21 mcg/actuation (Advair HFA) 2 puffs inhalation ONCE fremanezumab-vfrm (Ajovy) 675 mg (4.5 mL) subcut ONCE 90 days [glucose tab PO PRN] hydroxyzine HCl 25 mg PO BEDTIME ketoconazole 2% 1 appl topical DAILY magnesium oxide 400 mg PO DAILY 90 days meclizine 25 mg PO DAILY PRN montelukast 10 mg PO BEDTIME multivitamin 1 tab PO DAILY onabotulinumtoxinA (Botox) IM ondansetron 4 mg PO Q8H PRN pantoprazole 40 mg PO pyridoxine (vitamin B6) 50 mg PO BID 30 days riboflavin (vitamin B2) 200 mg (2 x 100 mg) PO BID 90 days sertraline 50 mg PO QAM topiramate (Topamax) 50 mg PO BEDTIME 90 days triamcinolone acetonide 0.5% 1 appl topical BID triamcinolone acetonide (Nasacort) 1 spray intranasal DAILY verapamil ER 120 mg PO DAILY 30 days vitamin A 1 cap PO QAM vitamin B complex (B Complex-Vitamin B12 tablet) 1 tab PO DAILY zolmitriptan 5 mg PO Q2H PRN 30 days HPI Comments Details: 54y/o female comes for treatment of her cervical dystonia and migraines she reports pain in her forehead and sinuses. she has an appointment with ENT ? Side effects including spread of toxin effect, dysphagia, breathing difficulties , bronchitis etc was discussed in detail and the patient agreed to the procedure.An informed consent was obtained ??? Botulinum toxin type [id number] diluted with 2 cc of normal saline each at a concentration of 25 units in 0.5cc saline. Lot number [id number] expiration 06/2027 ??? Muscles injected Bilateral levator 20 units each Zachariah Splenius 25 units each Bilateral trapezius 30 units each Zachariah temporlis 20 units each Zachariah Zygomaticus 5 units each Total use 200 units She is following up with [facility] [place] [facility] [place] ??? [facility] Medical History Greater trochanteric bursitis of both hips Osteoarthritis involving multiple joints on both sides of body Cataract Pituitary abnormality Sleep disorder GERD (gastroesophageal reflux disease) HTN (hypertension) Diabetes Depression Anemia Surgical History Hx of tonsillectomy H/O tubal ligation H/O section H/O gastric bypass H/O laparoscopic adjustable gastric banding Hx of bilateral breast reduction surgery H/O right knee surgery H/O left knee surgery Family History Father Skin cancer Brother Heart disease Brother Cancer Mother Dementia Social History Household Members Other:: daughter Alcohol intake: never Patient Tobacco Use Status: Former Tobacco user Current occupational status: disabled Physical Exam Vital Signs: Last Vital Signs Pulse 63 06/03/25 10:50 BP 110/74 06/03/25 10:50 Pulse Ox 98 06/03/25 10:50 Oxygen Delivery Method Room Air 06/03/25 10:50 BMI result Body Mass Index 30.5 Const General: cooperative and no acute distress Orientation/consciousness: patient oriented x3 HEENT Head: Yes normocephalic Neuro General: patient oriented x3, gait normal and CN's II-XI intact bilaterally Cognition (Neuro): normal cognition Motor exam (neuro): 5/5 motor strength present throughout Office Procedures Botulinum toxin Injection 81171 - Dystonia Procedure code (CPT) selection complete Office Meds onabotulinumtoxinA 200 unit solution for injection Performing Provider: Betzaida Solis MD Performing Location: [facility] Administered by: Betzaida Solis MD on 06/03/25 11:25 Dose Route Admin Location Dispensed Lot Number Expiration Date [facility] Assistant Track And Field Coach 200 unit IM 200 units [id number] ALLERGAN /BOTOX Total Dispensed Waste 200 units 0 % Comments: see HPI Assessment & Plan Assessment & Plan (1) Spasmodic torticollis: Code(s): G24.3 - Spasmodic torticollis Category: Medical Plan Patient tolerated the procedure well she will call with any side effect F/u FND clinic Ct sinus Orders: Orders AMB Botulinum toxin Injection Today G24.3 - Spasmodic torticollis Coding Level of Care Code Est Pt Level 1 (66892) Diagnoses Spasmodic torticollis G24.3 CPT Codes Botox Injection - Botox 4: 26531 - Dystonia ([id number])
[2025-06-03 10:50] VITALS: BP 110/74; PULSE 63; O2SAT 98; BMI 30.5
--- OUTSIDE RECORDS SUMMARY | 2025-06-03 12:46 | XMS_ITS ---
[facility] Name [facility] Organization Unknown Results Test Name/Text Value Interpretation Date Range Source PT Bld 11.5 sec 03/10/2025 10.5 - 13.3 [facility] INR PPP 0.9 03/10/2025 0.8 - 1.1 [facility] Glucose Bld-mCnc 91.0 mg/dL 03/10/2025 70 - 199 C [facility] Albumin SerPl-mCnc 4.4 g/dL 03/10/2025 3.5 - 5 [facility] Creat SerPl-mCnc 0.64 mg/dL 03/10/2025 0.5 - 1 C [facility] ALP SerPl-cCnc 62.0 unit/L 03/10/2025 34 - 104 CT [facility] Calcium SerPl-mCnc 8.5 mg/dL 03/10/2025 8.4 - 10.2 [facility] Sodium SerPl-sCnc 139.0 mmol/L 03/10/2025 135 - 14 5 [facility] AST SerPl-cCnc 32.0 unit/L 03/10/2025 5 - 40 CT [facility] ALT SerPl-cCnc 31.0 unit/L 03/10/2025 7 - 52 CT [facility] Bilirub SerPl-mCnc 0.3 mg/dL 03/10/2025 0.3 - 1 [facility] Chloride SerPl-sCnc 104.0 mmol/L 03/10/2025 98 - 107 [facility] Glucose SerPl-mCnc 104.0 mg/dL 03/10/2025 70 - 199 [facility] eGFRcr SerPlBld CKD-EPI 2020 105.0 mL/min/1.73m2 03/10/2025 - [facility] Anion Gap SerPl Calc-sCnc 6.0 03/10/2025 5 - 14 [facility] Potassium SerPl-sCnc 4.3 mmol/L 03/10/2025 3.5 - 5.1 [facility] CO2 SerPl-sCnc 29.0 mmol/L 03/10/2025 24 - 32 CT [facility] Prot SerPl-mCnc 6.8 g/dL 03/10/2025 6.4 - 8.5 [facility]_ [facility] BUN SerPl-mCnc 15.0 mg/dL 03/10/2025 7 - 17 [facility] BUN/Creat SerPl 23.4 Above high normal 03/10/2025 12 - 20 [facility] Magnesium SerPl-mCnc 1.9 mg/dL 03/10/2025 1.7 - 2.8 [facility] Troponin I SerPl HS-mCnc 4.0 ng/L 03/10/2025 0 - 14 [facility] BNP SerPl-mCnc 14.0 pcg/mL 03/10/2025 0 - 100 CT [facility] Hgb Bld-mCnc 12.9 g/dL 03/10/2025 12.5 - 16 [facility] Platelet # Bld Auto 291.0 K/mcL 03/10/2025 150 - 450 [facility] RBC # Bld Auto 4.01 M/mcL Below low normal 03/10/2025 4.2 - 5.4 [facility] RBC Auto 94.3 FL 03/10/2025 78 - 100 [facility] Lymphocytes # Bld Auto 1.1 K/mcL 03/10/2025 1 - 3.2 [facility] Lymphocytes NFr Bld Auto 25.8 % 03/10/2025 20 - 48 [facility] MCH RBC Qn Auto 32.2 pcg 03/10/2025 25 - 33 [facility]_ [facility] MCHC RBC Auto-EntMCnc 34.1 g/dL 03/10/2025 32 - 36 [facility] Basophils NFr Bld Auto 0.5 % 03/10/2025 0 - 2 [facility] RDW RBC Auto 13.5 % 03/10/2025 12.1 - 16.2 [facility] WBC # Bld Auto 4.3 K/mcL 03/10/2025 4 - 10.5 [facility] Monocytes # Bld Auto 0.36 K/mcL 03/10/2025 0 - 0.8 [facility] Monocytes NFr Bld Auto 8.5 % 03/10/2025 2 - 12 [facility] Neutrophils NFr Bld Auto 63.6 % 03/10/2025 44 - 74 [facility] Eosinophil NFr Bld Auto 1.4 % 03/10/2025 0 - 6 [facility] Hct VFr Bld Auto 37.8 % 03/10/2025 37 - 47 CT [facility] Basophils # Bld Auto <0.03 K/mcL 03/10/2025 0 - 0.2 [facility] PMV Bld Auto 9.4 FL 03/10/2025 7.4 - 11.4 [facility] Neutrophils # Bld Auto 2.71 K/mcL 03/10/2025 1.8 - 7.8 [facility] Eosinophil # Bld Auto 0.06 K/mcL 03/10/2025 0 - 0.5 [facility] PMV BLD AUTO 9.8 fL Normal 06/14/2024 7.4 - [facility].4 [facility] IMM[facility] GRANULOCYTE, PERCENT 0.3 % Normal 06/14/2024 0 - 1 [facility] BASOPHILS IN BLOOD BY AUTOMATED COUNT 0.0 K/uL Normal 06/14/2024 0 - 0.2 [facility] LYMPHOCYTES NFR BLD AUTO 32.7 % Normal 06/14/2024 20 - 48 [facility] MONOCYTES NO. BLD AUTO 0.2 K/uL Normal 06/14/2024 0 - 0.8 [facility] MCHC RBC AUTO MCNC 34.1 g/dL Normal 06/14/2024 32 - 36 [facility] WBC NO. BLD AUTO 3.6 K/uL Below low normal 06/14/2024 4 - 1 0.5 [facility] RDW RBC AUTO RTO 14.1 % Normal 06/14/2024 12.1 - 16.2 [facility] MONOCYTES NFR BLD AUTO 6.8 % Normal 06/14/2024 2 - 12 [facility] MCV RBC AUTO 89.4 fL Normal 06/14/2024 78 - 100 [facility] NEUTROPHILS NFR BLD AUTO 56.5 % Normal 06/14/2024 44 - 74 [facility] EOSINOPHIL NO. BLD AUTO 0.1 K/uL Normal 06/14/2024 0 - 0.5 [facility] RBC NO. BLD AUTO 3.97 M/uL Below low normal 06/14/2024 4.2 - 5.4 [facility] HGB BLD MCNC 12.1 g/dL Below low normal 06/14/2024 12.5 - 16 [facility] IMMATURE GRANULOCYTE, ABSOLUTE 0.01 k/uL Normal 06/14/2024 - 0.1 [facility] HCT VFR BLD AUTO 35.5 % Below low normal 06/14/2024 37 - 47 [facility] EOSINOPHIL NFR BLD AUTO 3.4 % Normal 06/14/2024 0 - 6 [facility] BASOPHILS NFR BLD AUTO 0.3 % Normal 06/14/2024 0 - 2 [facility] MCH RBC QN AUTO 30.5 pg Normal 06/14/2024 25 - 33 [facility] LYMPHOCYTES NO. BLD AUTO 1.2 K/uL Normal 06/14/2024 1 - 3.2 [facility] PLATELET NO. BLD AUTO 257.0 K/uL Normal 06/14/2024 150 - 450 [facility] NUCLEATED RBC 0.0 % Normal 06/14/2024 0 - 1 [facility] NEUTROPHILS NO. BLD AUTO 2.0 K/uL Normal 06/14/2024 1.8 - 7.8 [facility] MAGNESIUM SERPL MCNC 1.8 mg/dL Normal 06/14/2024 1.7 - 2.8 [facility] POTASSIUM SERPL SCNC 3.7 mmol/L Normal 06/14/2024 3.5 - 5.1 [facility] GLUCOSE SERPL MCNC 85.0 mg/dL Normal 06/14/2024 70 - 199 [facility] ANION GAP SERPL SCNC 7.0 mmol/L Normal 06/14/2024 5 - 14 [facility] CHLORIDE SERPL SCNC 104.0 mmol/L Normal 06/14/2024 98 - 107 [facility] SODIUM SERPL SCNC 139.0 mmol/L Normal 06/14/2024 135 - 14 5 [facility] CALCIUM SERPL MCNC 9.4 mg/dL Normal 06/14/2024 8.4 - 10.2 [facility] BUN SERPL MCNC 13.0 mg/dL Normal 06/14/2024 7 - 17 [facility] CREAT SERPL MCNC 0.6 mg/dL Normal 06/14/2024 0.5 - 1 [facility] HCO3 SER SCNC 28.0 mmol/L Normal 06/14/2024 24 - 32 [facility] Glomerular filtration rate/1.73 sq M. predicted 107.0 Normal 06/14/2024 60 - [facility] Hgb Ur Ql Strip.auto NEGATIVE Normal 06/14/2024 - [facility] pH Ur Strip.auto 6.5 Normal 06/14/2024 4.5 - 8 CT [facility] Sp Gr Ur Strip.auto 1.015 Normal 06/14/2024 1.005 - 1.03 [facility] Ketones Ur Ql Strip.auto NEGATIVE Normal 06/14/2024 - [facility] Leukocyte esterase Ur Ql Strip.auto NEGATIVE Normal 06/14/2024 - [facility] Clarity Ur Refract.auto CLEAR Normal 06/14/2024 [facility] Glucose Ur Ql Strip.auto NEGATIVE Normal 06/14/2024 - [facility] Prot Ur Ql Strip.auto NEGATIVE Normal 06/14/2024 - [facility] Nitrite Ur Ql Strip.auto NEGATIVE Normal 06/14/2024 - [facility] SPECIMEN SOURCE XXX URINE CLEAN CATCH Normal 06/14/2024 [facility] RSV RNA Nph Ql BLANCA+non-probe NEGATIVE Normal 03/24/2024 [facility] FLUAV RNA Nph Ql BLANCA+non-probe NEGATIVE Normal 03/24/2024 [facility] Service [facility] XXX-Imp Cepheid GeneXpert (RT-PCR) [facility] Normal 03/24/2024 [facility] FLUBV RNA Nph Ql BLANCA+non-probe NEGATIVE Normal 03/24/2024 [facility] SPECIMEN SOURCE XXX NASOPHARYNGEAL Normal 03/24/2024 [facility] PMV BLD AUTO 9.5 fL Normal 07/26/2023 7.4 - 11.4 [facility] MCHC RBC AUTO MCNC 35.4 g/dL Normal 07/26/2023 32 - 36 [facility] RBC NO. BLD AUTO 3.83 M/uL Below low normal 07/26/2023 4.2 - 5.4 [facility] EOSINOPHIL NO. BLD AUTO 0.2 K/uL Normal 07/26/2023 0 - 0.5 [facility] BASOPHILS NFR BLD AUTO 0.8 % Normal 07/26/2023 0 - 2 [facility] RDW RBC AUTO RTO 12.5 % Normal 07/26/2023 12.1 - 16.2 [facility] EOSINOPHIL NFR BLD AUTO 3.7 % Normal 07/26/2023 0 - 6 [facility] WBC NO. BLD AUTO 4.9 K/uL Normal 07/26/2023 4 - [facility] I[facility] GRANULOCYTE, PERCENT 0.2 % Normal 07/26/2023 0 - 1 [facility] NEUTROPHILS NFR BLD AUTO 49.1 % Normal 07/26/2023 44 - 74 [facility] MCV RBC AUTO 90.6 fL Normal 07/26/2023 78 - 100 [facility] HCT VFR BLD AUTO 34.7 % Below low normal 07/26/2023 37 - 47 [facility] MCH RBC QN AUTO 32.1 pg Normal 07/26/2023 25 - 33 [facility] PLATELET NO. BLD AUTO 266.0 K/uL Normal 07/26/2023 150 - 450 [facility] LYMPHOCYTES NO. BLD AUTO 2.0 K/uL Normal 07/26/2023 1 - 3.2 [facility] HGB BLD MCNC 12.3 g/dL Below low normal 07/26/2023 12.5 - 16 [facility] MONOCYTES NFR BLD AUTO 6.3 % Normal 07/26/2023 2 - 12 [facility] IMMATURE GRANULOCYTE, ABSOLUTE 0.01 k/uL Normal 07/26/2023 - 0.1 [facility] BASOPHILS IN BLOOD BY AUTOMATED COUNT 0.0 K/uL Normal 07/26/2023 0 - 0.2 [facility] MONOCYTES NO. BLD AUTO 0.3 K/uL Normal 07/26/2023 0 - 0.8 [facility] NUCLEATED RBC 0.0 % Normal 07/26/2023 0 - 1 [facility] LYMPHOCYTES NFR BLD AUTO 39.9 % Normal 07/26/2023 20 - 48 [facility] NEUTROPHILS NO. BLD AUTO 2.4 K/uL Normal 07/26/2023 1.8 - 7.8 [facility] BNP BLD MCNC 5.0 pg/mL Normal 07/26/2023 0 - 100 [facility] BUN SERPL MCNC 20.0 mg/dL Above high normal 07/26/2023 7 - 1 7 [facility] ANION GAP SERPL SCNC 9.0 mmol/L Normal 07/26/2023 5 - 14 [facility] CALCIUM SERPL MCNC 8.4 mg/dL Normal 07/26/2023 8.4 - 10.2 [facility] HCO3 SER SCNC 26.0 mmol/L Normal 07/26/2023 24 - 32 [facility] GLUCOSE SERPL MCNC 106.0 mg/dL Normal 07/26/2023 70 - 199 [facility] CREAT SERPL MCNC 0.8 mg/dL Normal 07/26/2023 0.5 - 1 CT [facility] Glomerular filtration rate/1.73 sq M. predicted 88.0 Normal 07/26/2023 60 - [facility] POTASSIUM SERPL SCNC 3.8 mmol/L Normal 07/26/2023 3.5 - 5.1 [facility] SODIUM SERPL SCNC 137.0 mmol/L Normal 07/26/2023 135 - 14 5 [facility] CHLORIDE SERPL SCNC 102.0 mmol/L Normal 07/26/2023 98 - 107 [facility] FLUBV RNA Nph Ql BLANCA+non-probe NEGATIVE Normal 07/26/2023 [facility] Service [facility] XXX-Imp Cepheid GeneXpert (RT-PCR) [facility] Normal 07/26/2023 [facility] FLUAV RNA Nph Ql BLANCA+non-probe NEGATIVE Normal 07/26/2023 [facility] SPECIMEN SOURCE XXX NASOPHARYNGEAL Normal 07/26/2023 [facility] History of Medication Use Medication Directions Dispensed Refills Start Date End Date Status diazePAM (VALIUM) 5 mg/mL injection - ADS Override Pull Starting on Mon03/10/25 at 1311, For 1 dose, Created by cabinet override 5 03/10/20 completed diphenhydrAMINE (BENADRYL) 50 mg/mL injection - ADS Override Pull Starting on Mon03/10/25 at 1255, For 1 dose, Created by cabinet override 5 03/10/20 completed iopamidoL (ISOVUE-370) 370 mg iodine /mL (76 %) injection 80 mL 80 mL, intravenous, Once in imaging, Starting on Mon03/10/25 at 1304, For 1 dose 5 03/10/20 completed sodium chloride 0.9 % flush 10 mL 10 mL, intravenous, Once, On Mon03/10/25 at 1305, For 1 dose 5 03/10/20 completed sodium chloride 0.9 % intravenous solution 50 mL 50 mL, intravenous, Once in imaging, Starting on Mon03/10/25 at 1304, For 1 dose 5 03/10/20 completed sucralfate (CARAFATE) 100 mg/mL suspension Take 10 mL (1 g total) by mouth 4 (four) times a day. 5 active albuterol HFA (Ventolin HFA) 90 mcg/actuation inhaler Inhale 2 puffs by mouth every 6 (six) hours if needed for wheezing. 5 active Lidocaine 4 % Place 1 patch onto the skin daily for 7 days. Remove & Discard patch within 12 hours or as directed by 4 06/22/20 active naproxen (NAPROSYN) 500 MG tablet Take 1 tablet (500 mg total) by mouth 2 (two) times a day with meals for 5 days. 4 06/20/20 active predniSONE (DELTASONE) tablet 20 mg Take 3 tablets (60 mg total) by mouth daily for 1 day, THEN 2 tablets (40 mg total) daily for 2 days, THEN 1 tablet (20 mg total) daily for 2 days. 4 06/19/20 active methocarbamol (ROBAXIN) tablet 500 mg 500 mg, Oral, Once, On Mon06/14/24 at 1115, For 1 dose 4 06/14/20 completed predniSONE (DELTASONE) tablet 20 mg Take 2 tablets (40 mg total) by mouth daily for 4 days. 4 03/29/20 24 active acetaminophen (TYLENOL) tablet 975 mg 975 mg, Oral, Once, On Mon03/24/24 at 1145, For 1 dose 4 08/04/20 24 completed azithromycin (ZITHROMAX) tablet 500 mg 500 mg, Oral, Once, On 03/24/24 at 1245, For 1 dose 4 03/24/20 24 completed predniSONE (DELTASONE) tablet 60 mg 60 mg, Oral, Once, On 03/24/24 at 1145, For 1 dose 4 03/24/20 24 completed azithromycin (Zithromax Z-Michele) 250 MG tablet Take 2 tablets together, the first day. Then one tablet daily for four more days. 4 active loratadine (CLARITIN) tablet 10 mg 10 mg, Oral, Daily, First dose on 03/24/24 at 1145 4 active semaglutide (Ozempic) 0.25 mg or 0.5 mg (2 mg/3 mL) injection pen Inject 0.25 mg into the skin once a week. 4 active fluticasone propion-salmeteroL (ADVAIR HFA) 115-21 mcg/actuation inhaler Inhale 2 Puffs into the lungs 2 times daily for 90 days. 4 active albuterol 108 (90 Base) MCG/ACT inhaler Inhale 2 puffs into the lungs every 6 (six) hours as needed. 3 active topiramate (TOPAMAX) 100 mg tablet TAKE 1 TABLET BY MOUTH DAILY 3 active cyclobenzaprine (FLEXERIL) 10 MG tablet Take 1 tablet (10 mg total) by mouth 3 (three) times a day as needed for up to 15 doses. 3 06/14/20 24 aborted ibuprofen 800 MG tablet Take 1 tablet (800 mg total) by mouth every 8 (eight) hours as needed for pain for up to 15 doses. 3 active oxyCODONE (ROXICODONE) 5 MG immediate release tablet Take 1 tablet (5 mg total) by mouth every 4 (four) hours as needed for pain. 3 active cholecalciferol (VITAMIN D-3) 1,250 mcg (50,000 unit) capsule Take 1 Capsule by mouth once a week. 3 active calcium carbonate-vitamin D (Oyster Shell Calcium-Vit D3) 500 mg-5 mcg (200 unit) per tablet TAKE 1 TABLET BY MOUTH DAILY 3 active fluticasone (FLONASE) 50 MCG/ACT nasal spray spray/apply 1 spray in each nostril daily. 2 active vitamin A 3,000 mcg (10,000 unit) capsule TAKE ONE CAPSULE EVERY MORNING 2 active multivit-min/iron/FA/vit K/lut (MULTIVITAMIN WOMEN 50 PLUS ORAL) TAKE 1 TABLET BY MOUTH DAILY 1 active albuterol 2.5 mg /3 mL (0.083 %) nebulizer solution Take 1 Vial by nebulization every 6 hours as needed for Wheezing. 0 active amitriptyline (ELAVIL) 25 mg tablet Take 1 Tab by mouth at bedtime. 0 active budesonide-formoteroL (SYMBICORT) 160-4.5 mcg/actuation inhaler Inhale 2 Puffs into the lungs 2 times daily. 0 active DULoxetine (Drizalma Sprinkle) 20 mg capsule, delayed rel sprinkle Take 20 mg by mouth 2 times daily. 0 active ferrous sulfate 325 mg (65 mg elemental iron) tablet Take 1 tablet by mouth daily. 0 active gabapentin (NEURONTIN) 100 mg capsule Take by mouth 3 times daily. 0 active hydrocortisone (ANUSOL-HC) 2.5 % rectal cream Apply 1 Inch topically 2 times daily. 0 active magnesium oxide (MAG-OX) 400 mg (241.3 elemental magnesium) tablet Take 1 Tab by mouth daily. 0 active pantoprazole (PROTONIX) 40 mg EC tablet TAKE 1 TABLET BY MOUTH DAILY 0 active verapamil SR (CALAN-SR) 120 mg CR tablet Take 1 Tab by mouth at bedtime. 0 active ondansetron (ZOFRAN) 8 mg tablet Take 1 Tab by mouth every 8 hours as needed for Nausea. 0 active lidocaine (LIDODERM) 5 % Place 1 patch onto the skin daily. Remove & Discard patch within 12 hours or as directed by 9 06/14/20 24 active naproxen (NAPROSYN) 250 MG tablet Take 1 tablet (250 mg total) by mouth 2 (two) times a day with meals. 9 06/14/20 24 active buPROPion SR (WELLBUTRIN SR) 150 mg 12 hr tablet 150 mg 2 times daily. 8 active albuterol HFA (PROAIR HFA ; PROVENTIL HFA ; VENTOLIN HFA) 90 mcg/actuation inhaler Inhale 2 Puffs into the lungs every 6 hours as needed for Cough, Wheezing or Shortness of Breath for up to 90 days. 8 active amitriptyline (ELAVIL) tablet 25 mg Take 25 mg by mouth every night at bedtime. active aspirin 81 mg chewable tablet Take 81 mg by mouth daily. active atorvastatin (LIPITOR) 10 mg tablet Take 10 mg by mouth daily. active atorvastatin (LIPITOR) tablet 10 mg Take 10 mg by mouth every evening. active buPROPion (WELLBUTRIN XL) 150 MG 24 hr tablet Take 150 mg by mouth daily. active cabergoline (DOSTINEX) tablet 0.5 mg Take 0.5 mg by mouth 2 (two) times a week. active cyclobenzaprine (FLEXERIL) 10 mg tablet Take 10 mg by mouth 3 times daily as needed. active DULoxetine (CYMBALTA) DR capsule 20 mg Take 20 mg by mouth daily. active fluocinolone 0.01 % cream Apply topically 2 times daily. active Fluocinolone Acetonide 0.01 % OIL Place in ear(s). active fluticasone-salmeterol (ADVAIR HFA) 115-21 MCG/ACT inhaler Inhale 2 puffs into the lungs 2 (two) times a day. active hydroCHLOROthiazide (HYDRODIURIL) tablet 25 mg Take 25 mg by mouth daily. active ketoconazole (NIZORAL) 2 % shampoo Apply topically daily as needed. active ketoconazole (NIZORAL) 2 % shampoo Apply topically 2 (two) times a week. Apply to damp skin, lather, leave on 5 minutes, and rinse active ketotifen (ZADITOR) 0.025 % ophthalmic solution 1 Drop daily. active loratadine (CLARITIN) 10 mg tablet Take 10 mg by mouth daily. active metFORMIN (GLUCOPHAGE) tablet 500 mg Take 500 mg by mouth 2 (two) times a day with meals. active mometasone (ASMANEX) 110 mcg/ actuation (30) inhaler Inhale into the lungs. active omeprazole (PriLOSEC) 20 MG capsule Take 20 mg by mouth daily. active rOPINIRole (REQUIP) 0.25 MG tablet Take 0.25 mg by mouth 3 (three) times a day. active SUMAtriptan (IMITREX) 50 MG tablet Take 50 mg by mouth every 2 (two) hours as needed for migraine. active triamcinolone (KENALOG) 0.5 % cream Apply topically 3 times daily. active Allergies Allergen Reaction Severity Comment Documented Date Source Status STRAWBERRY 03/24/2024 [facility] active LEVETIRACETAM PSYCHIATRIC 12/19/2023 [facility] ac tive DOG DANDER Other Reaction(s): Rhinorrhea 10/07/2022 [facility] active WATERMELON SHORTNESS OF BREATH 07/30/2022 [facility] active OTHER Chicken meat- No reaction documented. 05/21/2019 [facility] active SHELLFISH CONTAINING PRODUCTS SHORTNESS OF BREATH Shellfish Allergy 10/26/2017 [facility] active GADOLINIUM-CONTAI JT CONTRAST MEDIA HIVES Other reaction(s): facial swelling, itchiness, hive 02/18/2015 [facility] active AVOCADO SHORTNESS OF BREATH [facility] BANANA SHORTNESS OF BREATH [facility] CAT DANDER HIVES [facility] CODEINE Other Reaction(s): Hives/Urticaria [facility] FRUIT EXTRACTS Fruit Generic : Other Reaction(s): Numbness, tingling or swelling of the lips, tongue or mouth,Watermelo n,kiwi,banana,a pple, dragonfruit [facility] IODINATED CONTRAST MEDIA Other Reaction(s): Hives/Urticaria [facility] MORPHINE [facility] PEANUT ANAPHYLAXIS [facility] Problems Problem Status Onset Date Problem Type Date of Resolution Source Cervical radiculopathy active EncounterDiagnosisAct [facility] Sciatica active EncounterDiagnosisAct [facility] Anemia active EncounterDiagnosisAct [facility] Lumbar radiculopathy active EncounterDiagnosisA ct [facility] Class 1 obesity due to excess calories with serious comorbidity and body mass index (BMI) of 33.0 to 33.9 in adult active 2024-06-07 ProblemAct [facility] Migraine with aura active 2019-03-12 ProblemAct [facility] Severely overweight active 2019-12-03 ProblemAct [facility] Controlled diabetes mellitus type II without complication ([facility] V24, [facility] V28) active 2024-06-07 ProblemAct [facility] Hypertension active 2024-06-07 ProblemAct [facility] Intestinal malabsorption following gastrectomy active 2019-09-03 ProblemAct [facility] Anemia active 2024-06-07 ProblemAct [facility] Functional neurological symptom disorder with attacks or seizures active EncounterDiagnosisAct [facility] Fibromyalgia active 2024-06-07 ProblemAct [facility] Spondylosis of lumbar region without myelopathy or radiculopathy active 2018-01-24 ProblemAct [facility] Pituitary microadenoma ([facility] V24, [facility] V28) active 2017-10-26 ProblemAct [facility] Depression with anxiety active 2024-06-07 ProblemAct [facility] Immunizations Vaccine Date Source Lot Number Status Pfizer (ages 12 & older) DEISI S-CoV-2 COVID-19, mRNA, LNP-S, adelina-sucrose, preservative free [id number] AdVolume SARS-CoV-2 COVID-19, mRNA, LNP-S, preservative free 01/01/2021 [facility] [id number] completed AdVolume SARS-CoV-2 COVID-19, mRNA, LNP-S, preservative free 12/11/2020 [facility] [id number] completed Pneumococcal polysaccharide 23 valent (Pneumovax 23) 2yo and older 02/05/2018 [facility] [id number] com pleted Encounters Encounter Type Encounter Reason Primary Diagnosis Location Date Emergency chest pain 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 [facility] 03/10/2025 Emergency left thumb laceration Laceration [facility] 07/16/2024 Emergency Radiculopathy, cervical region Radiculopathy, cervical region [facility] 06/14/2024 Emergency Chronic sinusitis, unspecified Chronic sinusitis, unspecified [facility] 03/24/2024 Emergency Dyspnea, unspecified Dyspnea, unspecified [facility] 07/25/2023 Emergency Strain of unspecifie d muscle(s) and tendon(s) at lower leg level, left leg, initial encounter Strain of unspecified muscle(s) and tendon(s) at lower leg level, left leg, initial encounter [facility] 04/02/2023 Care Team Organization Name Specialty Phone Email Start Date End Da te [facility] 07/18/2024 [facility] 07/16/2024 [facility] 09/10/2023 [facility] 202203/04/2025 [facility] 202204/02/2023
--- OUTSIDE RECORDS SUMMARY | 2025-06-03 12:46 | XMS_ITS | Encounter Summary ---
Author Organization [employer] Address [address] [facility] 7t [place] [address] Care Team Providers Care Wealth Management Advisor Name Role Phone Gabbie Cisneros MD Primary Care Provider [phone] Zac Hugo CNP Primary Care Provider [phone] Ariel Jose RN Unavailable [phone] Amada Walters Unavailable Encounter Details Date Type Department Care Team (Late st Contact Info) Description 01/18/2024 Orders Only [facility] [address] [place] [address] Provider, MD Marina Social History Tobacco Use [...] Upcoming Encounters Date Type Department Care Team ([facility] st Contact Info) Description 06/04/2025 9:30 AM EDT Office Visit [facility] PEDS [address] [place] [address] Gabbie Cisneros MD 505 [place] [address] 06/09/2025 11:00 AM EDT Medication Management [facility] [address] [place] [address] Ann Marie Garvey, PharmD 230 [place] [address] 06/10/2025 10:20 AM EDT Office Visit [facility] OPTOMETRY [address] [place] [address] documented as of this encounter Goals Goal [...] documented as of this encounter Care Teams Wealth Management Advisor Relationship Specialty Start Date End Date Gabbie Cisneros MD 230 [place] [address] PCP - General Family Medicine 05/02/18 03/27/25 Zac Hugo CNP [address] [place] [address] PCP - General Family Medicine 03/28/25 Ariel Jose, ZULEYKA [address] [place] [address] Registered Nurse Family Medicine 04/14/25 Amada Walters 04/14/25 Saloni Kaminski Full Stack Web DeveloperOrchard Hand 05/19/23 Rosemarie Palmer [address] [place] [address] Nurse Practitioner Neurology 09/18/23 Milad Mcfarland Full Stack Web DeveloperOrchard Hand 10/01/24 documented as of this encounter
--- OUTSIDE RECORDS SUMMARY | 2025-06-03 12:46 | XMS_ITS | Encounter Summary ---
Author Organization [employer] Address [address] [facility] 7t [place] [address] Care Team Providers Care Check Writing Machine Operator Name Role Phone Gabbie Cisneros MD Primary Care Provider [phone] Zac Hugo CNP Primary Care Provider [phone] Ariel Jose RN Unavailable [phone] Amada Walters Unavailable Encounter Details Date Type Department Care Team (Late st Contact Info) Description 10/16/2023 Telephone [facility] MED & PEDS 505 [place], [place] [phone] Gabbie Cisneros MD 505 [place], [place] [phone] Social History Tobacco Use Types Packs/Day Years [...] Care Team (Late st Contact Info) Description 06/04/2025 9:30 AM EDT Office Visit [facility] MED & PEDS 505 [place] [address] Gabbie Cisneros MD 505 [place] [address] 06/09/2025 11:00 AM EDT Medication Management [facility] MED & PEDS 505 [place] [address] Ann Marie Garvey, PharmD 230 [place] [address] 06/10/2025 10:20 AM EDT Office Visit [facility] OPTOMETRY [address] [place] [address] documented as of this encounter Goals Goal [...] documented as of this encounter Care Teams Check Writing Machine Operator Relationship Specialty Start Date End Date Gabbie Cisneros MD 230 [place] [address] PCP - General Family Medicine 05/02/18 03/27/25 Zac Hugo CNP 230 [place] [address] PCP - General Family Medicine 03/28/25 Ariel Jose, ZULEYKA [address] [place] [address] Registered Nurse Family Medicine 04/14/25 Amada Walters 04/14/25 Saloni Kaminski Pointing Machine OperatorBorder Police 05/19/23 Rosemarie Palmer [address] [place] [address] Nurse Practitioner Neurology 09/18/23 Milad Mcfarland Pointing Machine OperatorBorder Police 10/01/24 documented as of this encounter
--- OUTSIDE RECORDS SUMMARY | 2025-06-03 12:46 | XMS_ITS | Encounter Summary ---
Author Organization [employer] Address 75 [facility] 7t [place] [address] Care Team Providers Care Emergency Services Director Name Role Phone Gabbie Cisneros MD Primary Care Provider [phone] Zac Hugo CNP Primary Care Provider [phone] Ariel Jose RN Unavailable [phone] Amada Walters Unavailable Reason for Visit * Reason Onset Date Comments Appointment Request 06/12/2024 Encounter Details Date Type Department Care Team ([facility] st Contact Info) Description 06/12/2024 Telephone [facility] MED & PEDS 505 [place], [place] [phone] Gabbie Cisneros MD 505 [place], [place] [phone] Appointment Request Social History Tobacco Use Types Packs/Day Years Used Date Smoking Tobacco: Never Smokeless Tobacco: Never Alcohol Use Standard Drinks/Week Comments Never 0 (1 standard drink = 0.6 oz pur e alcohol) Depression Answer Date Recorded Patient Health Questionnaire-9 Score 10 01/30/2024 Patient Health Questionnaire-9 Score 01/30/2024 Last PHQ-9: Questionnaire Data Not on [...] Upcoming Encounters Date Type Department Care Team ([facility] st Contact Info) Description 06/04/2025 9:30 AM EDT Office Visit [facility] MED & PEDS 505 [place] [address] Gabbie Cisneros MD 505 [place] [address] 06/09/2025 11:00 AM EDT Medication Management [facility] MED & PEDS 505 [place] [address] Ann Marie Garvey, AlliD 230 [place] [address] 06/10/2025 10:20 AM EDT Office Visit [facility] OPTOMETRY [address] [place] [address] documented as of this encounter Goals Goal Patient Goal Type Associated Problems Recent Progress Patient-Stated? Author Patient will adhere to medication regimen General No Jerry Shelby, PharmD Help patient manage asthma General No Jerry Shebly, PharmD Note: Reduce use of LUANNE to 2x/week documented as of this encounter Visit Diagnoses Not on filedocumented in this encounter Additional Health Concerns Assessment Noted Time PHQ-9 Depression Total Score: 10 024 9:42 AM EDT documented as of this encounter Care Teams Emergency Services Director Relationship Specialty Start Date End Date Gabbie Cisneros MD 230 [place] [address] PCP - General Family Medicine 05/02/18 03/27/25 Zac Hugo CNP [address] [place] [address] PCP - General Family Medicine 03/28/25 Ariel Jose, ZULEYKA 505 [place] [address] Registered Nurse Family Medicine 04/14/25 Amada Walters 04/14/25 Saloni Kaminski Stereoplotter OperatorPaper Bag Machine Operator 05/19/23 Rosemarie Palmer [address] [place] [address] Nurse Practitioner Neurology 09/18/23 Milad Mcfarland Stereoplotter OperatorPaper Bag Machine Operator 10/01/24 documented as of this encounter
--- OUTSIDE RECORDS SUMMARY | 2025-06-03 12:46 | XMS_ITS | Encounter Summary ---
Author Organization [employer] Address 75 [facility] 7t [place] [address] Care Team Providers Care Human Resource Statistician Name Role Phone Gabbie Cisneros MD Primary Care Provider Zac Hugo CNP Primary Care Provider [phone] Ariel Jose RN Unavailable [phone] Amada Walters Unavailable Encounter Details Date Type Department Care Team (Late st Contact Info) Description 03/10/2025 Orders Only [facility] 230 [place] [address] Provider, MD Marina Social History Tobacco Use [...] Upcoming Encounters Date Type Department Care Team ([facility] st Contact Info) Description 06/04/2025 9:30 AM EDT Office Visit [facility] MED & PEDS 505 [place] [address] Gabbie Cisneros MD 505 [place] [address] 06/09/2025 11:00 AM EDT Medication Management [facility] MED & PEDS 505 [place] [address] Ann Marie Garvey, PharmD 230 [place] [address] 06/10/2025 10:20 AM EDT Office Visit [facility] OPTOMETRY [address] [place] [address] documented as of this encounter Goals Goal Patient Goal Type Associated Problems Recent Progress Patient-Stated? Author Patient will adhere to medication regimen General No Jerry Shelby, PharmD Help patient manage asthma General No Jerry Shelby, PharmD Note: Reduce use of LUANNE to 2x/week documented as of this encounter Procedures Procedure Name Priority Date/Time Associated Diagnosis Comments CT HEAD WO CONTRAST Routine 03/10/2025 2:10 PM EDT CTA HEAD NECK W AND WO CONTRAST Routine 03/10/2025 2:08 PM EDT documented in this encounter Results * CT Head w/o Contrast (03/10/2025 2:10 PM EDT) Anatomical Region Laterality Modality Head, Neck Computed Tomogra phy us Historical Provider IMMarek CT PROCEDURES Final R esult * CTA Head Neck w/ and w/o Contrast (03/10/2025 2:08 PM EDT) Anatomical Region Laterality Modality Head, Neck Computed Tomogra phy us Historical Provider IMMarek CT PROCEDURES Final R esult documented in this encounter Visit Diagnoses Not on filedocumented in this encounter Additional Health Concerns Assessment Noted Time PHQ-9 Depression Total Score: 10 024 9:42 AM EDT documented as of this encounter Care Teams Human Resource Statistician Relationship Specialty Start Date End Date Gabbie Cisneros MD [address] [place] [address] PCP - General Family Medicine 05/02/18 03/27/25 Zac Hugo CNP [address] [place] [address] PCP - General Family Medicine 03/28/25 Ariel Jose RN [address] [place] [address] Registered Nurse Family Medicine 04/14/25 Amada Walters 04/14/25 Saloni Kaminski Marking StitcherLaser Operator 05/19/23 Rosemarie Palmer [address] [place] [address] Nurse Practitioner Neurology 09/18/23 Milad Mcfarland Marking StitcherLaser Operator 10/01/24 documented as of this encounter
--- OUTSIDE RECORDS SUMMARY | 2025-06-03 12:46 | XMS_ITS | Encounter Summary ---
Author Organization [employer] Address 75 [facility] 7t [place] [address] Care Team Providers Care Cobol Developer Name Role Phone Gabbie Cisneros MD Primary Care Provider [phone] Zac Hugo CNP Primary Care Provider [phone] Ariel Jose RN Unavailable [phone] Amada Walters Unavailable Reason for Visit * Reason Comments Med Refill Encounter Details Date Type Department Care Team (Late st Contact Info) Description 11/11/2022 Refill [facility] MED & PEDS [address] [place] [address] Gabbie Cisneros MD 505 [place] [address] Chronic obstructive pulmonary disease, unspecified COPD type [...] [facility] & PED[facility] [address] [place] [address] Gabbie Cisneros MD 505 [place] [address] 06/09/2025 11:00 AM EDT Medication Management [facility] MED & PEDS 505 [place] [address] Ann Marie Garvey, AlliD 230 [place] [address] 06/10/2025 10:20 AM EDT Office Visit [facility] OPTOMETRY [address] [place] [address] documented as of this encounter Visit Diagnoses Diagnosis Chronic obstructive pulmonary disease, unspecified COPD type (CMS/HCC) (HCC) documented in this encounter Additional Health Concerns Assessment Noted Time PHQ-9 Depression Total Score: 12 023 8:49 AM EST documented as of this encounter Care Teams Cobol Developer Relationship Specialty Start Date End Date Gabbie Cisneros MD 230 [place] [address] PCP - General Family Medicine 05/02/18 03/27/25 Zac Hugo CNP 230 [place] [address] PCP - General Family Medicine 03/28/25 Ariel Jose RN [address] [place] [address] Registered Nurse Family Medicine 04/14/25 Amada Walters 04/14/25 Saloni Kaminski Clothing CutterInstrument Repair Specialist 05/19/23 Rosemarie Palmer [address] [place] [address] Nurse Practitioner Neurology 09/18/23 Milad Mcfarland Clothing CutterInstrument Repair Specialist 10/01/24 documented as of this encounter
--- OUTSIDE RECORDS SUMMARY | 2025-06-03 12:46 | XMS_ITS | Encounter Summary ---
Author Organization [employer] Address [address] [facility] 7t [place] [address] Care Team Providers Care Paid Intern Name Role Phone Gabbie Cisneros MD Primary Care Provider [phone] Zac Hugo CNP Primary Care Provider [phone] Ariel Jose RN Unavailable [phone] Amada Walters Unavailable Reason for Visit * Reason Comments Med Refill Encounter Details Date Type Department Care Team (Late st Contact Info) Description 04/11/2024 Refill [facility] MED & PEDS 505 [place], [place] [phone] Gabbie Cisneros MD 505 [place], [place] [phone] Social History Tobacco Use Types Packs/Day Years [...] Description 06/04/2025 9:30 AM EDT Office Visit [facility] MED & PEDS 505 [place] [address] Gabbie Cisneros MD 505 [place] [address] 06/09/2025 11:00 AM EDT Medication Management [facility] MED & PEDS 505 [place] [address] Ann Marie Garvey, PharmD 230 [place] [address] 06/10/2025 10:20 AM EDT Office Visit [facility] OPTOMETRY [address] [place] [address] documented as of this encounter Goals Goal [...] documented as of this encounter Care Teams Paid Intern Relationship Specialty Start Date End Date Gabbie Cisneros MD 230 [place] [address] PCP - General Family Medicine 05/02/18 03/27/25 Zac Hugo CNP [address] [place] [address] PCP - General Family Medicine 03/28/25 Ariel Jose RN [address] [place] [address] Registered Nurse Family Medicine 04/14/25 Amada Walters 04/14/25 Saloni Kaminski Veterinarian AssistantAudio Tape Librarian 05/19/23 Rosemarie Palmer [address] [place] [address] Nurse Practitioner Neurology 09/18/23 Milad Mcfarland Veterinarian AssistantAudio Tape Librarian 10/01/24 documented as of this encounter
--- OUTSIDE RECORDS SUMMARY | 2025-06-03 12:46 | XMS_ITS | Encounter Summary ---
Author Organization [facility] Address [address] [place] [address] Care Team Providers Care Dry Chain Puller Name Role Phone Gabbie Cisneros MD Primary Care Provider [phone] Reason for Visit * Reason Onset Date Comments prior auth 05/28/2025 Wegovy .25mg Encounter Details Date Type Department Care Team ([facility] Contact Info) Description 05/28/2025 Telephone Bariatric Surgery [facility] [address] [facility] [address] [place] [phone] Will Verduzco MD [address] [place] [phone] Social History Tobacco Use Types Packs/Day Years Used Date Smoking Tobacco: Never Smokeless Tobacco: Former Comments Unknown Sex and Gender Information Value Date Recorded Sex Assigned at Female 07/16/2024 5:02 PM EST Legal Sex Female 4:57 PM EST Gender Identity Female 11/28/2024 10:28 AM EDT Sexual Orientation Straight 11/28/2024 10 :28 AM EDT documented as of this encounter Progress Notes * Noemí Castañeda - 05/28/2025 12:20 PM EDT Pt calling requesting update on PA for Wegovy .25mg documented in this encounter Plan of Treatment Upcoming Encounters Date Type Department Care Team (Late st Contact Info) Description 09/11/2025 2:15 PM EST Office Visit [facility] [place] [address] [facility] [address] [place] [address] Will Verduzco MD [address] [place] [phone] documented as of this encounter Visit Diagnoses Not on filedocumented in this encounter Care Teams Dry Chain Puller Relationship Specialty Start Date End Date Gabbie Cisneros MD [address] [place] [address] PCP - General 11/17/18 documented as of this encounter
--- OUTSIDE RECORDS SUMMARY | 2025-06-03 12:46 | XMS_ITS | Encounter Summary ---
Author Organization [employer] Address 75 [facility] 7t [place] [address] Care Team Providers Care Utility Locate Technician Name Role Phone Gabbie Cisneros MD Primary Care Provider [phone] Zac Hugo CNP Primary Care Provider [phone] Ariel Jose RN Unavailable [phone] Amada Walters Unavailable Reason for Visit * Reason Onset Date Comments call back 09/23/2022 Encounter Details Date Type Department Care Team (Late st Contact Info) Description 09/23/2022 Telephone [facility] MEDICINE 230 [place] [address] Gabbie Cisneros MD [address] [place], [place] [phone] call back Social History Tobacco Use Types [...] EST Return call placed to Jackie from [facility] who states pt has been c/o [...] 3:25 PM EST Tc from jackie with [facility] visiting nurse requesting a call back regarding pt medication and having blood work done Please contact jackie at [phone] documented in this encounter Plan of Treatment Upcoming Encounters Date Type Department Care Team ([facility] st Contact Info) Description 06/04/2025 9:30 AM EDT Office Visit [facility] MED & PEDS 505 [place] [address] Gabbie Cisneros MD 505 [place] [address] 06/09/2025 11:00 AM EDT Medication Management [facility] MED & PEDS 505 [place] [address] Ann Marie Garvey, PharmD 230 [place] [address] 06/10/2025 10:20 AM EDT Office Visit [facility] OPTOMETRY [address] [place] [address] documented as of this encounter Visit Diagnoses Not on filedocumented in this encounter Additional Health Concerns Assessment Noted Time PHQ-9 Depression Total Score: 9 08/29/19 23 9:49 AM EST documented as of this encounter Care Teams Utility Locate Technician Relationship Specialty Start Date End Date Gabbie Cisneros MD 230 [place] [address] PCP - General Family Medicine 05/02/18 03/27/25 Zac Hugo CNP [address] [place] [address] PCP - General Family Medicine 03/28/25 Ariel Jose, ZULEYKA 505 [place] [address] Registered Nurse Family Medicine 04/14/25 Amada Walters 04/14/25 Saloni Kaminski Spool HaulerVascular Ultrasound Technician 05/19/23 Rosemarie Palmer [address] [place] [address] Nurse Practitioner Neurology 09/18/23 Milad Mcfarland Spool HaulerVascular Ultrasound Technician 10/01/24 documented as of this encounter
--- OUTSIDE RECORDS SUMMARY | 2025-06-03 12:46 | XMS_ITS | Encounter Summary ---
Author Organization [employer] Address [address] [facility] [address] 7t [place] [address] Care Team Providers Care Social Media Community Manager Name Role Phone Gabbie Cisneros MD Primary Care Provider Zac Hugo CNP Primary Care Provider [phone] Ariel Jose RN Unavailable [phone] Amada Walters Unavailable Encounter Details Date Type Department Care Team (Late st Contact Info) Description 09/29/2022 Abstract [facility] MEDICINE 230 [place] [address] Gabbie Cisneros MD 505 [place], [place] [phone] Social History Tobacco Use Types Packs/Day Years [...] AM EDT documented as of this encounter Functional Status * Over the past 2 weeks, how often have you been bothered by any of the following problems? Question Answer Date of Assessment Author Patient Health Questionnaire -2 Score 6 09/29/2022 9:30 AM Caryl Mata [place] * If you checked off any problems on this questionnaire so far, Question Answer Date of Assessment Author How difficult have these problems made it for you to do your work, take care of things at home, or get along with other people? Very difficult 09/29/2022 9:30 AM Caryl Mata [place] * Over the past 2 weeks, how often have you been bothered by any of the following problems? Question Answer Date of Assessment Author Little interest or pleasure in doing things Nearly every day 09/29/2022 9:30 AM Praveena Mata MA Feeling down, depressed, or hopeless Nearly every day 09/29/2022 9:30 AM Praveena Mata MA Trouble falling or staying asleep, or sleeping too much More than half the days 09/29/2022 9:30 AM Praveena Mata MA Feeling tired or having little energy More than half the days 09/29/2022 9:30 AM Praveena Mata [place] Poor appetite or overeating Several days 09/29/2022 9:30 AM Praveena Mata MA Feeling bad about yourself - or that you are a failure or have let yourself or your family down Several days 09/29/2022 9:30 AM Praveena Mata [place] Trouble concentrating on things, such as reading the newspaper or watching television More than half the days 09/29/2022 9:30 AM Praveena Mata MA Moving or speaking so slowly that other people could have noticed? Or the opposite - being so fidgety or restless that you have been moving around a lot more than usual. Several days 09/29/2022 9:30 AM Praveena Mata MA Thoughts that you would be better off or hurting yourself in some way Not at all 09/29/2022 9:30 AM Praveena Mata MA Patient Health Questionnaire-9 Score 15 09/29/2022 9:30 AM Praveena Mata [place] documented as of this encounter Plan of Treatment Upcoming Encounters Date Type Department Care Team (Late st Contact Info) Description 06/04/2025 9:30 AM EDT Office Visit [facility] MED & PEDS [address] [place] [address] Gabbie Cisneros MD 505 [place] [address] 06/09/2025 11:00 AM EDT Medication Management [facility] MED & PEDS 505 [place] [address] Ann Marie Garvey PharmD 230 [place] [address] 06/10/2025 10:20 AM EDT Office Visit [facility] OPTOMETRY [address] [place] [address] documented as of this encounter Visit Diagnoses Not on filedocumented in this encounter Additional Health Concerns Assessment Noted Time PHQ-9 Depression Total Score: 15 023 9:30 AM EST documented as of this encounter Care Teams Social Media Community Manager Relationship Specialty Start Date End Date Gabbie Cisneros MD [address] [place] [address] PCP - General Family Medicine 05/02/18 03/27/25 Zac Hugo CNP [address] [place] [address] PCP - General Family Medicine 03/28/25 Ariel Jose, ZULEYKA [address] [place] [address] Registered Nurse Family Medicine 04/14/25 Amada Walters 04/14/25 Saloni Kaminski Regulatory Affairs Portfolio LeaderDiagnostics Tech 05/19/23 Rosemarie Palmer [address] [place] [address] Nurse Practitioner Neurology 09/18/23 Milad Mcfarland Regulatory Affairs Portfolio LeaderDiagnostics Tech 10/01/24 documented as of this encounter
--- OUTSIDE RECORDS SUMMARY | 2025-06-03 12:46 | XMS_ITS | Encounter Summary ---
Author Organization [employer] Address [address] 7[address] [place] [address] Care Team Providers Care Sql Database Programmer Name Role Phone Gabbie Cisneros MD Primary Care Provider [phone] Zac Hugo CNP Primary Care Provider [phone] Ariel Jose RN Unavailable [phone] Amada Walters Unavailable Reason for Visit * Reason Onset Date Comments Call Back Request 12/21/2023 Encounter Details Date Type Department Care Team (Late st Contact Info) Description 12/21/2023 Telephone [facility] MEDICINE 230 [place] [address] Gabbie Cisneros MD [address] [place], [place] [phone] Call Back Request Social History Tobacco Use [...] and was told to call [facility] back poem writer does not see anything noted on the patients chart documented in this encounter Plan of Treatment Upcoming Encounters Date Type Department Care Team (Late st Contact Info) Description 06/04/2025 9:30 AM EDT Office Visit [facility] MED & PEDS 505 [place], [place] [phone] Gabbie Cisneros MD [address] [place], [place] 06/09/2025 11:00 AM EDT Medication Management [facility] MED & PEDS [address] [place], [place] [phone] Ann Marie Garvey PharmD 230 [place] [address] 06/10/2025 10:20 AM EDT Office Visit [facility] OPTOMETRY [address] [place] [address] documented as of this encounter Goals Goal Patient Goal Type Associated Problems Recent Progress Patient-Stated? Author Patient will adhere to medication regimen General No Jerry Shelby, AlliD Help patient manage asthma General No Jerry Shelby PharmD Note: Reduce use of LUANNE to 2x/week documented as of this encounter Visit Diagnoses Not on filedocumented in this encounter Additional Health Concerns Assessment Noted Time PHQ-9 Depression Total Score: 7 10/30/19 24 9:31 AM EDT documented as of this encounter Care Teams Sql Database Programmer Relationship Specialty Start Date End Date Gabbie Cisneros MD [address] [place], [place] PCP - General Family Medicine 05/02/18 03/27/25 Zac Hugo CNP 230 [place] [address] PCP - General Family Medicine 03/28/25 Ariel Jose RN [address] [place] [address] Registered Nurse Family Medicine 04/14/25 Amada Walters 04/14/25 Saloni Kaminski Rock Dust SprayerWealth Management Advisor 05/19/23 Rosemarie Palmer [address] [place] [address] Nurse Practitioner Neurology 09/18/23 Milad Mcfarland Rock Dust SprayerWealth Management Advisor 10/01/24 documented as of this encounter
--- OUTSIDE RECORDS SUMMARY | 2025-06-03 12:46 | XMS_ITS | Encounter Summary ---
Author Organization [employer] Address [address] [facility] 7t [place] [address] Care Team Providers Care Duralumin Metalworker Name Role Phone Gabbie Cisneros MD Primary Care Provider [phone] Zac Hugo CNP Primary Care Provider [phone] Ariel Jose RN Unavailable [phone] Amada Walters Unavailable Encounter Details Date Type Department Care Team (Latest Contact Info) Description 08/19/2022 Orders Only [facility] MEDICINE 230 [place] [address] Rosalva Hidalgo MD 505 [place], [place] [phone] Hypercholesterolemia (Primary Dx) Social History Tobacco Use [...] Description 06/04/2025 9:30 AM EDT Office Visit [facility]C MED & PEDS 505 [place], [place] [phone] Gabbie Cisneros MD 505 [place], [place] [phone] 06/09/2025 11:00 AM EDT Medication Management [facility] CHC MED & PEDS 505 [place] [address] Ann Marie Garvey, AlliD 230 [place] [address] 06/10/2025 10:20 AM EDT Office Visit [facility] OPTOMETRY [address] [place] [address] documented as of this encounter Visit Diagnoses Diagnosis Hypercholesterolemia- Primary Pure hypercholesterolemia documented in this encounter Care Teams Duralumin Metalworker Relationship Specialty Start Date End Date Gabbie Cisneros MD [address] [place] [address] PCP - General Family Medicine 05/02/18 03/27/25 Zac Hugo CNP [address] [place] [address] PCP - General Family Medicine 03/28/25 Ariel Jose, ZULEYKA 505 [place] [address] Registered Nurse Family Medicine 04/14/25 Amada Walters 04/14/25 Saloni Kaminski Supervisor MailsDonation Worker 05/19/23 Rosemarie Palmer [address] [place] [address] Nurse Practitioner Neurology 09/18/23 Milad Mcfarland Supervisor MailsDonation Worker 10/01/24 documented as of this encounter
--- OUTSIDE RECORDS SUMMARY | 2025-06-03 12:46 | XMS_ITS | Encounter Summary ---
Author Organization [employer] Address [address] [facility] 7t [place] [address] Care Team Providers Care Camp Nurse Name Role Phone Gabbie Cisneros MD Primary Care Provider [phone] Zac Hugo CNP Primary Care Provider [phone] Ariel Jose RN Unavailable [phone] Amada Walters Unavailable Reason for Visit * Reason Onset Date Comments ED F/U 07/27/2022 Encounter Details Date Type Department Care Team (Late st Contact Info) Description 07/27/2022 Telephone [facility] CHC MED & PEDS 505 [place], [place] [phone] Gabbie Cisneros MD 505 [place] [address] ED F/U Social History Tobacco Use Types [...] Little interest or pleasure in doing things Several days 07/28/2022 9:28 AM Chaya Mata [place] Feeling down, depressed, or hopeless Several days 07/28/2022 9:28 AM Caryl Mata MA Patient Health Questionnaire-2 Score 2 07/28/2022 9:28 AM Jessica Mata MA * Question Answer Date of Assessment Author Feeling tired or having little energy Several days 07/28/2022 9:28 AM Praveena Mata [place] Poor appetite or overeating More than half the days 07/28/2022 9:28 AM Praveena Mata MA Trouble concentrating on things, such as reading the newspaper or watching television More than half the days 07/28/2022 9:28 AM Praveena Mata MA Moving or speaking so slowly that other people could have noticed? Or the opposite - being so fidgety or restless that you have been moving around a lot more than usual. Several days 07/28/2022 9:28 AM Praveena Mata MA * Over the last 2 weeks, how often have you been bothered by any of the following problems? Question Answer Date of Assessment Author Feeling nervous, anxious, or on edge 1 07/28/2022 9:31 AM Caryl Mata MA Not being able to stop or control worrying 1 07/28/2022 9:31 AM Caryl Mata MA Worrying too much about different things 2 07/28/2022 9:31 AM Caryl Mata MA Trouble relaxing 3 07/28/2022 9:31 AM Praveena Choi MA Being so restless that it is hard to sit still 1 07/28/2022 9:31 AM Caryl Mata MA Becoming easily annoyed or irritable 3 07/28/2022 9:31 AM Caryl Mata [place] Feeling afraid as if somethi ng awful might happen 1 07/28/2022 9:31 AM Caryl Mata [place]-7 Total Score 12 07/28/2022 9:31 AM EST Praveena Thompson MA documented as of this encounter Miscellaneous Notes [...] Pt agrees. * Telephone Encounter - Cynthia hBatti - 07/27/2022 1:38 PM EST Margy, a nurse calling from [facility] to report ED visit on 07/26/22 at [facility]. Sandra states not knowing the reason of the ED visit. Sandra was advised will forward to team nurse for follow up. Margy's contact number [phone]. Please contact pt for follow up at [phone] documented in this encounter Plan of Treatment Upcoming Encounters Date Type Department Care Team ([facility] st Contact Info) Description 06/04/2025 9:30 AM EDT Office Visit [facility] CHC MED & PEDS 505 [place] [address] Gabbie Cisneros MD 505 [place] [address] 06/09/2025 11:00 AM EDT Medication Management [facility] CHC MED & PEDS 505 [place] [address] Ann Marie Garvey, PharmD 230 [place] [address] 06/10/2025 10:20 AM EDT Office Visit [facility] OPTOMETRY 267 [place] [address] documented as of this encounter Visit Diagnoses Not on filedocumented in this encounter Care Teams Camp Nurse Relationship Specialty Start Date End Date Gabbie Cisneros MD 230 [place] [address] PCP - General Family Medicine 05/02/18 03/27/25 Zac Hugo CNP 230 [place] [address] PCP - General Family Medicine 03/28/25 Ariel Jose RN [address] [place] [address] Registered Nurse Family Medicine 04/14/25 Amada Walters 04/14/25 Saloni Kmainski Silver MinerOffice Nurse Practitioner 05/19/23 Rosemarie Palmer [address] [place] [address] Nurse Practitioner Neurology 09/18/23 Milad Mcfarland Silver MinerOffice Nurse Practitioner 10/01/24 documented as of this encounter
--- OUTSIDE RECORDS SUMMARY | 2025-06-03 12:46 | XMS_ITS | Encounter Summary ---
Author Organization [employer] Address [address] [place] [address] Care Team Providers Care Bessemer Converter Blower Name Role Phone Gabbie Cisneros MD Primary Care Provider [phone] Zac Hugo CNP Primary Care Provider [phone] Ariel Jose RN Unavailable [phone] Amada Walters Unavailable Encounter Details Date Type Department Care Team (Late st Contact Info) Description 01/19/2024 Orders Only [facility] CHC MED & PEDS 505 [place], [place] [phone] Provider, MD Marina Social History Tobacco Use [...] Upcoming Encounters Date Type Department Care Team ([facility] st Contact Info) Description 06/04/2025 9:30 AM EDT Office Visit [facility] MED & PEDS 505 [place] [address] Gabbie Cisneros MD 505 [place] [address] 06/09/2025 11:00 AM EDT Medication Management [facility] MED & PEDS 505 [place] [address] Ann Marie Garvey, PharmD 230 [place] [address] 06/10/2025 10:20 AM EDT Office Visit [facility] OPTOMETRY [address] [place] [address] documented as of this encounter Goals Goal [...] documented as of this encounter Care Teams Bessemer Converter Blower Relationship Specialty Start Date End Date Gabbie Cisneros MD 230 [place] [address] PCP - General Family Medicine 05/02/18 03/27/25 Zac Hugo CNP 230 [place] [address] PCP - General Family Medicine 03/28/25 Ariel Jose RN 505 [place] [address] Registered Nurse Family Medicine 04/14/25 Amada Walters 04/14/25 Saloni Kaminski Swimming Pool ServicerAudiovisual Librarian 05/19/23 Rosemarie Palmer [address] [place] [address] Nurse Practitioner Neurology 09/18/23 Milad Mcfarland Swimming Pool ServicerAudiovisual Librarian 10/01/24 documented as of this encounter
--- OUTSIDE RECORDS SUMMARY | 2025-06-03 12:46 | XMS_ITS | Encounter Summary ---
Author Organization [employer] Address [address] [facility] 7t [place] [address] Care Team Providers Care Inspector Air Carrier Name Role Phone Gabbie Cisneros MD Primary Care Provider [phone] Zac Hugo CNP Primary Care Provider [phone] Ariel Jose RN Unavailable [phone] Amada Walters Unavailable Reason for Visit * Reason Comments Med Refill Encounter Details Date Type Department Care Team ([facility] st Contact Info) Description 02/09/2024 Refill [facility] CHC MED & PEDS [address] [place], [place] [phone] Rosalva Hidalgo MD 505 [place], [place] [phone] Lichen sclerosus Social History Tobacco Use Types [...] Description 06/04/2025 9:30 AM EDT Office Visit [facility] MED & PEDS [address] [place] [address] Gabbie Cisneros MD 505 [place] [address] 06/09/2025 11:00 AM EDT Medication Management [facility] MED & PEDS 505 [place] [address] Ann Marie Garvey, PharmD 230 [place] [address] 06/10/2025 10:20 AM EDT Office Visit [facility] OPTOMETRY [address] [place] [address] documented as of this encounter Goals Goal [...] documented as of this encounter Care Teams Inspector Air Carrier Relationship Specialty Start Date End Date Gabbie Cisneros MD 230 [place] [address] PCP - General Family Medicine 05/02/18 03/27/25 Zac Hugo CNP [address] [place] [address] PCP - General Family Medicine 03/28/25 Ariel Jose RN [address] [place] [address] Registered Nurse Family Medicine 04/14/25 Amada Walters 04/14/25 Saloni Kaminski Formulation TechnicianCnc Mill Operator 05/19/23 Rosemarie Palmer [address] [place] [address] Nurse Practitioner Neurology 09/18/23 Milad Mcfarland Formulation TechnicianCnc Mill Operator 10/01/24 documented as of this encounter
--- OUTSIDE RECORDS SUMMARY | 2025-06-03 12:46 | XMS_ITS | Encounter Summary ---
Author Organization [employer] Address [address] [facility] 7t [place] [address] Care Team Providers Care Deflector Operator Name Role Phone Gabbie Cisneros MD Primary Care Provider [phone] Zac Hugo CNP Primary Care Provider [phone] Ariel Jose RN Unavailable [phone] Amada Walters Unavailable Reason for Visit * Reason Onset Date Comments Referral 09/27/2024 Encounter Details Date Type Department Care Team (Late st Contact Info) Description 09/27/2024 Telephone [facility] MEDICINE 230 [place] [address] Gabbie Cisneros MD [address] [place], [place] [phone] Referral Social History Tobacco Use Types Packs/Day [...] PM EST Pt is already established with [facility]. Pt needs to call to schedule appt. * Telephone Encounter - Denny Hernandez - 09/27/2024 2:37 PM EST Tc from Milad Stating that pt is requesting a referral to Rheumatology. Contact Milad at [phone] documented in this encounter Plan of Treatment Upcoming Encounters Date Type Department Care Team ([facility] st Contact Info) Description 06/04/2025 9:30 AM EDT Office Visit [facility] MED & PEDS [address] [place] [address] Gabbie Cisneros MD 505 [place] [address] 06/09/2025 11:00 AM EDT Medication Management [facility] MED & PEDS 505 [place] [address] Ann Marie Garvey PharmD 230 [place] [address] 06/10/2025 10:20 AM EDT Office Visit [facility] OPTOMETRY [address] [place] [address] documented as of this encounter Goals Goal [...] documented as of this encounter Care Teams Deflector Operator Relationship Specialty Start Date End Date Gabbie Cisneros MD 230 [place] [address] PCP - General Family Medicine 05/02/18 03/27/25 Zac Hugo CNP 230 [place] [address] PCP - General Family Medicine 03/28/25 Ariel Jose RN 505 [place] [address] Registered Nurse Family Medicine 04/14/25 Amada Walters 04/14/25 Saloni Kaminski Professional Development DirectorCourt Commissioner 05/19/23 Rosemarie Palmer [address] [place] [address] Nurse Practitioner Neurology 09/18/23 Milad Mcfarland Professional Development DirectorCourt Commissioner 10/01/24 documented as of this encounter
--- OUTSIDE RECORDS SUMMARY | 2025-06-03 12:46 | XMS_ITS | Clinical Summary ---
Author Organization [address] [facility] Address [address] [place] [address] Phone Care Team Providers Care Numerologist Name Role Phone Gabbie Cisneros MD Primary Care Provider [phone] Allergies Active Allergy Reactions Criticality Noted Date [...] s of breath High 10/26/2017 Shellfish Allergy [place] 03/24/2024 Watermelon Shortness of breath High 07/30/2022 Medications albuterol 2.5 mg /3 mL (0.083 %) nebulizer solution Take 1 Vial by nebulization every 6 hours as needed for Wheezing. 0 Active albuterol HFA (PROAIR HFA ; PROVENTIL HFA ; VENTOLIN HFA) 90 mcg/actuation inhaler Inhale 2 Puffs into the lungs every 6 hours as needed for Cough, Wheezing or Shortness of Breath for up to 90 days. 8 Active vwpxw-V-hhcaabm sidase (BEANO ORAL) GBWYB-Z-RULPTKVY IDASE (BEANO) TAB : Take 1 tablet by mouth 4 times daily for 120 doses. 1 Active amitriptyline (ELAVIL) 25 mg tablet Take 1 Tab by mouth at bedtime. 0 Active aspirin 81 mg chewable tablet Take 81 mg by mouth daily. Active atorvastatin (LIPITOR) 10 mg tablet Take 10 mg by mouth daily. Active blood-glucose meter kit Active budesonide-form oteroL (SYMBICORT) 160-4.5 mcg/actuation inhaler Inhale 2 Puffs into the lungs 2 times daily. 0 Active calcium carbonate-vitam in D (Oyster Shell Calcium-Vit D3) 500 mg-5 mcg (200 unit) per tablet TAKE 1 TABLET BY MOUTH DAILY 3 Active cholecalciferol (VITAMIN D-3) 1,250 mcg (50,000 unit) capsule Take 1 Capsule by mouth once a week. 3 Active cyclobenzaprine (FLEXERIL) 10 mg tablet Take 10 mg by mouth 3 times daily as needed. Active DULoxetine (Drizalma Sprinkle) 20 mg capsule, delayed rel sprinkle Take 20 mg by mouth 2 times daily. 0 Active epinephrine (EPIPEN 2-YONI INJ) Inject into the muscle. Active ferrous sulfate 325 mg (65 mg elemental iron) tablet Take 1 tablet by mouth daily. 0 Active fluocinolone 0.01 % cream Apply topically 2 times daily. Active fluticasone propion-salmete roL (ADVAIR HFA) 115-21 mcg/actuation inhaler Inhale 2 Puffs into the lungs 2 times daily for 90 days. 4 Active gabapentin (NEURONTIN) 100 mg capsule Take by mouth 3 times daily. 0 Active glucose blood test strip 1 Strip by In Vitro route 2 times daily. Active hydrocortisone (ANUSOL-HC) 2.5 % rectal cream Apply 1 Inch topically 2 times daily. 0 Active ketoconazole (NIZORAL) 2 % shampoo Apply topically daily as needed. Active ketotifen (ZADITOR) 0.025 % ophthalmic solution 1 Drop daily. Active loratadine (CLARITIN) 10 mg tablet Take 10 mg by mouth daily. Active magnesium oxide (MAG-OX) 400 mg (241.3 elemental magnesium) tablet Take 1 Tab by mouth daily. 0 Active mometasone (ASMANEX) 110 mcg/ actuation (30) inhaler Inhale into the lungs. Active multivit-min/ir on/FA/vit K/lut (MULTIVITAMIN WOMEN 50 PLUS ORAL) TAKE 1 TABLET BY MOUTH DAILY 3 Active ondansetron (ZOFRAN) 8 mg tablet Take 1 Tab by mouth every 8 hours as needed for Nausea. 0 Active OneTouch UltraSoft Lancets 2 times daily. Activ e topiramate (TOPAMAX) 100 mg tablet TAKE 1 TABLET BY MOUTH DAILY 3 Active triamcinolone (KENALOG) 0.5 % cream Apply topically 3 times daily. Active verapamil SR (CALAN-SR) 120 mg CR tablet Take 1 Tab by mouth at bedtime. 0 Active buPROPion SR (WELLBUTRIN SR) 150 mg 12 hr tablet 150 mg 2 times daily. 8 Active pantoprazole (PROTONIX) 40 mg EC tablet TAKE 1 TABLET BY MOUTH DAILY 90 tablet 3 5 Active albuterol HFA (Ventolin HFA) 90 mcg/actuation inhaler Inhale 2 puffs by mouth every 6 (six) hours if needed for wheezing. 1 each 1 5 Active vitamin A 3,000 mcg (10,000 unit) capsule TAKE ONE CAPSULE EVERY MORNING 30 capsule 3 5 Active semaglutide (Wegovy) 0.25 mg/0.5 mL injection penIndications: Class 1 obesity due to excess calories with body mass index (BMI) of 32.0 to 32.9 in adult, unspecified whether serious comorbidity present Inject 0.25 mg under the skin every 7 (seven) days. 4 mL 1 5 Active sucralfate (CARAFATE) 100 mg/mL suspension Take 10 mL (1 g total) by mouth 4 (four) times a day. 1200 mL 2 5 025 Active Problems Problem Noted Date Diagnosed Date Anemia 06/07/2024 Controlled diabetes mellitus type II without complication ([facility] V24, [facility] V28) 06/07/2024 Depression with anxiety 06/07/2024 Fibromyalgia 06/07/2024 Hypertension 06/07/2024 Class 1 obesity due to exces s calories with serious comorbidity and body mass index (BMI) of 33.0 to 33.9 in adult 06/07/2024 Severely overweight 12/03/2019 Intestinal malabsorption following gastrectomy 0 09/03/2019 Migraine with aura 03/12/2019 Spondylosis of lumbar region without myelopathy or radiculopathy 01/24/2018 Pituitary microadenoma ([facility] V24, [facility] V28 ) 10/26/2017 Encounters Date Type Department Care Team Description 05/28/2025 Telephone Bariatric Surgery [address] [phone] Will Verduzco MD 05/09/2025 Telephone Bariatric Surgery [address] [phone] Will Verduzco MD 05/01/2025 1:45 PM EDT Office Visit Bariatric Surgery [address] [phone] Will Verduzco MD Over weight (Primary Dx); Class 1 obesity due to excess calories with body mass index (BMI) of 32.0 to 32.9 in adult, unspecified whether serious comorbidity present 03/10/2025 12:23 PM EDT - 03/10/2025 3:01 PM EDT Emergency [facility] Emergency [address] [place] [address] Functional neurological symptom disorder with attacks or seizures (Primary Dx) Discharge Disposition: Home or Self Care from Last 3 Months Immunizations Immunization Administration Dates Next Due Pfizer (ages 12 & older) DEISI S-CoV-2 COVID-19, mRNA, LNP-S, adelina-sucrose, preservative free 11/12/2021 Pfizer SARS-CoV-2 COVID-19, mRNA, LNP-S, preservative free 01/01/2021,12/11/2020 Pneumococcal polysaccharide 23 valent (Pneumovax 23) 2yo and older 02/05/2018 Medical History Medical History Date Comments Asthma DX:Asthma Seizure ([facility] V24, [facility] V28) DX:Seizure ([facility]) Hypoglycemia DX:Hypoglycemia Social History Tobacco [...] Sign Reading Time Taken Comments Blood Pressure 111/71 05/01/2025 2:11 PM EDT Pulse 59 05/01/2025 2:11 PM EDT Temperature 36.6 C (97.8 F) 05/01/2025 2:11 PM EDT Respiratory Rate 11 03/10/2025 2:48 PM EDT Oxygen Saturation 97% 03/10/2025 2:48 PM EDT Inhaled Oxygen Concentration - - Weight 78.9 kg (174 lb) 05/01/2025 2:11 PM EDT Height 160 cm (5' 3 ) 05/01/2025 2:11 PM EDT Body Mass Index 30.82 05/01/2025 2:11 PM EDT Plan of Treatment Upcoming Encounters Date Type Department Care Team (Late st Contact Info) Description 09/11/2025 2:15 PM EST Office Visit Bariatric Surgery - [address] [phone] Will Verduzco MD [address] [place] [phone] Health Maintenance Due Date Last Done Comments Breast Cancer Screening 1970 Diabetes: Annual Foot Exam 12/10/1979 Diabetes: Annual Retina Eye Exam 12/10/1979 Pneumococcal Vaccine: 50+ Years (3 of 3 - PCV) 04/16/2019 04/16/2018, 02/05/2018, 03/12/2013, Additional history exists RSV Immunization Adult Patients (1 - Risk 50-74 years 1-dose series) 12/10/2019 HIV Screening 07/29/2022 Hepatitis C Screening 07/29/2022 Social Influencers of Health Screening 07/29/2022 Cervical Cancer Screening: HPV 04/09/2023 04/09/2018 Diabetes: Annual Urine Albumin-Creatinine Ratio (uACR) 10/06/2023 12/06/2017 Diabetes: Blood Sugar Control Test (HGBA1C) 03/26/2024 09/26/2023, 08/07/2023, 10/07/2022 Depression Screening 08/21/2024 COVID-19 Vaccine ( season) 2025 11/12/2021, 01/01/2021, 12/11/2020 Influenza Vaccine (#1) 2025 , 05/11/2022, 07/02/2021, Additional history exists Diabetes: Annual GFR (Glomerular Filtration Rate) 03/10/2026 03/10/2025, 10/09/2024, 06/14/2024, Additional history exists Hypertension/CHF/CAD Annual BMP Blood Test 03/10/2026 03/10/2025, 10/09/2024, 06/14/2024, Additional history exists DTaP,Tdap,and Td Vaccines [...] Name Priority Date/Time Associated Diagnosis Comments CT ANGIO HEAD/NECK STROKE WO AND/OR W CONTRAST STAT 03/10/2025 1:[address] HEAD STROKE WO CONTRAST STAT 03/10/2025 12:52 PM EDT PROTHROMBIN TIME WITH INR STAT 03/10/2025 12:44 PM EDT POCT GLUCOSE BLOOD Routine 03/10/2025 12 :43 PM EDT CBC WITH AUTO DIFFERENTIAL STAT 03/10/2025 12:37 PM EDT B-TYPE NATRIURETIC PEPTIDE STAT 03/10/2025 12:37 PM EDT TROPONIN I HIGH SENSITIVITY STAT 03/10/2025 12:37 PM EDT MAGNESIUM STAT 03/10/2025 12:37 PM EDT CBC AND DIFFERENTIAL STAT 03/10/2025 12:37 PM EDT COMPREHENSIVE METABOLIC PANEL STAT 03/10/2025 12:37 PM EDT ECG 12-LEAD Routine 03/10/2025 12:21 PM EDT HEMOGLOBIN A1C Routine 09/26/2023 COLONOSCOPY Routine 05/13/2020 HPV Routine 04/09/2018 URINE ALBUMIN CREATININE RATIO Routine 12/06/2017 LIPID PANEL Routine 12/06/2017 from Last 3 Months or Most Recently Relevant to Health Maintenance Results * CT Angio Head/Neck Stroke wo and/or w Contrast (03/10/2025 1:04 PM EDT) Anatomical Region Laterality Modality Head and Neck Computed Tomogra phy 03/10/2025 1:21 PM EDT Impressions 03/10/2025 1:31 PM EDT No evidence of large vessel occlusion in the head or neck. Minimal calcific plaquing of the left carotid bulb without hemodynamically significant stenosis. 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 Report reviewed and signed by : Dr. Kristopher Sarkar MD on 03/10/2025 1:31 PM. Workstation Name - [id number] -------- FINAL REPORT -------- Dictated By: Kristopher Sarkar Dictated Date: 03/10/2025 13:21 ET Assigned Physician: Kristopher Sarkar Reviewed and Electronically Signed By: Kristopher Sarkar Signed Date: 03/10/2025 13:31 ET Workstation ID: [id number] Transcribed By: Self Edit Transcribed Date: 03/10/2025 13:21 ET Narrative 03/10/2025 1:31 PM EDT EXAM: CT ANGIO HEAD/NECK STROKE WO AND/OR W CONTRAST CLINICAL INDICATION: Neuro deficit, acute, stroke suspected COMPARISON: CT head from earlier the same day. TECHNIQUE: Helical multichannel CTA imaging of the head and neck was performed after the administration of 80 cc of Isovue 370 contrast material intravenously. Sagittal and coronal plane reconstructions, MIP, and 3-D reconstructions were obtained by postprocessing on an independent workstation with concurrent physician supervision for image interpretation. CT scans are performed using dose optimization technique as appropriate with Automated Exposure Control and adjustment of the mA and/or kVp according to patient size. FINDINGS: CTA NECK: AORTIC ARCH: Normal caliber aorta. No evidence of aneurysm or dissection. There is mild calcific plaquing of the aortic arch Great vessel origin is normal. CAROTID ARTERIES: Minimal calcific plaquing of the carotid bulb on the left. No evidence of hemodynamically significant stenosis by criteria similar to NASCET. VERTEBRAL ARTERIES: Dominant left vertebral artery. No evidence of stenosis or dissection. SOFT TISSUES: Normal. No enhancing mass or signs of high flow vascular malformation. CTA HEAD: CAROTID ARTERIES: Normal. No evidence of internal carotid artery stenosis or occlusion. VERTEBRAL ARTERIES: Normal. No evidence of vertebral artery stenosis or occlusion involving intracranial/V4 segments. BASILAR ARTERY: Normal. [place]: Normal [place]. No evidence of cerebral aneurysm, large vessel stenosis or occlusion, or high flow vascular malformation. 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 No evidence of stenosis or occlusion. MIDDLE CEREBRAL ARTERIES: Normal. No evidence of stenosis or occlusion. POSTERIOR CEREBRAL ARTERIES: Normal. No evidence of stenosis or occlusion. CEREBELLAR ARTERIES: Normal. No evidence of stenosis or occlusion. BRAIN: No enhancing lesion. Procedure Note Kristopher Sarkar MD - 03/10/2025 EXAM: CT ANGIO HEAD/NECK STROKE WO AND/OR W CONTRAST CLINICAL INDICATION: Neuro deficit, acute, stroke suspected COMPARISON: CT head from earlier the same day. TECHNIQUE: Helical multichannel CTA imaging of the head and neck wasperformed after the administration of 80 cc of Isovue 370 contrastmaterial intravenously. Sagittal and coronal plane reconstructions, MIP,and 3-D reconstructions were obtained by postprocessing on an independentworkstation with concurrent physician supervision for imageinterpretation. CT scans are performed using dose optimization techniqueas appropriate with Automated Exposure Control and adjustment of the mAand/or kVp according to patient size. FINDINGS: CTA NECK: AORTIC ARCH: Normal caliber aorta. No evidence of aneurysm or dissection.There is mild calcific plaquing of the aortic arch Great vessel origin isnormal. CAROTID ARTERIES: Minimal calcific plaquing of the carotid bulb on theleft. No evidence of hemodynamically significant stenosis by criteriasimilar to NASCET. VERTEBRAL ARTERIES: Dominant left vertebral artery. No evidence ofstenosis or dissection. SOFT TISSUES: Normal. No enhancing mass or signs of high flow vascularmalformation. CTA HEAD: CAROTID ARTERIES: Normal. No evidence of internal carotid artery stenosisor occlusion. VERTEBRAL ARTERIES: Normal. No evidence of vertebral artery stenosis orocclusion involving intracranial/V4 segments. BASILAR ARTERY: Normal. [place]: Normal [place]. No evidence of cerebralaneurysm, large vessel stenosis or occlusion, or high flow vascularmalformation. ANTERIOR CEREBRAL ARTERIES: Hypoplasia of the A1 segment of the rightanterior cerebral artery, a variant of normal. No evidence of stenosis orocclusion. MIDDLE CEREBRAL ARTERIES: Normal. No evidence of stenosis or occlusion. POSTERIOR CEREBRAL ARTERIES: Normal. No evidence of stenosis orocclusion. CEREBELLAR ARTERIES: Normal. No evidence of stenosis or occlusion. BRAIN: No enhancing lesion. IMPRESSION: No evidence of large vessel occlusion in the head or neck. Minimal calcific plaquing of the left carotid bulb without hemodynamicallysignificant stenosis. 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 Report reviewed and signed by : Dr. Kristopher Sakrar MD on 03/10/2025 1:31 PM.Workstation Name - [id number] -------- FINAL REPORT -------- Dictated By: Kristopher Sarkar Dictated Date: 03/10/2025 13:21 ET Assigned Physician: Krisotpher Sarkar Reviewed and Electronically Signed By: Kristopher Sarkar Signed Date: 03/10/2025 13:31 ET Workstation ID: [id number] Transcribed By: Self Edit Transcribed Date: 03/10/2025 13:21 ET us Jean CLEARY IMG CT PROCEDURES Final Res ult * CT Head Stroke wo Contrast (03/10/2025 12:52 PM EDT) Anatomical Region Laterality Modality Head and Neck Computed Tomogra phy 03/10/2025 1:02 PM EDT Impressions 03/10/2025 1:06 PM EDT No acute abnormality. No evidence of hemorrhage or acute infarction. Report reviewed and signed by : Dr. Kristopher Sarkar MD on 03/10/2025 1:06 PM. Workstation Name - [id number] -------- FINAL REPORT -------- Dictated By: Kristopher Sarkar Dictated Date: 03/10/2025 13:02 ET Assigned Physician: Kristopher Sarkar Reviewed and Electronically Signed By: Kristopher Sarkar Signed Date: 03/10/2025 13:06 ET Workstation ID: [id number] Transcribed By: Self Edit Transcribed Date: 03/10/2025 13:02 ET Narrative 03/10/2025 1:06 PM EDT EXAM: CT HEAD STROKE WO CONTRAST CLINICAL INDICATION: Neuro deficit, acute, stroke suspected COMPARISON: CT 06/14/2024 TECHNIQUE: Helical multichannel CT imaging of the head was performed without contrast. Sagittal and coronal plane reconstructions were obtained by postprocessing. CT scans are performed using dose optimization technique as appropriate with Automated Exposure Control and adjustment of the mA and/or kVp according to patient size. FINDINGS: EXTRA AXIAL SPACES INCLUDING BASAL CISTERNS: No extra-axial fluid collection. HEMORRHAGE: No acute intracranial hemorrhage. VENTRICULAR SYSTEM: Normal in size and morphology for the patient's age. CEREBRAL PARENCHYMA: Normal. There is no mass, intracerebral hemorrhage, or CT signs of acute infarction. CEREBELLUM: The cerebellum is normal. BRAINSTEM: The brainstem expected course of the cranial nerves is normal. CALVARIUM: No focal osseous lesion. VASCULAR SYSTEM: Normal VISUALIZED PARANASAL SINUSES: The visualized paranasal sinuses are clear. VISUALIZED ORBITS: Normal SELLA AND SKULL BASE: The sellar region and skull base are normal. Procedure Note Kristopher Sarkar MD - 03/10/2025 EXAM: CT HEAD STROKE WO CONTRAST CLINICAL INDICATION: Neuro deficit, acute, stroke suspected COMPARISON: CT 06/14/2024 TECHNIQUE: Helical multichannel CT imaging of the head was performedwithout contrast. Sagittal and coronal plane reconstructions wereobtained by postprocessing. CT scans are performed using dose optimizationtechnique as appropriate with Automated Exposure Control and adjustment ofthe mA and/or kVp according to patient size. FINDINGS: EXTRA AXIAL SPACES INCLUDING BASAL CISTERNS: No extra-axial fluidcollection. HEMORRHAGE: No acute intracranial hemorrhage. VENTRICULAR SYSTEM: Normal in size and morphology for the patient's age. CEREBRAL PARENCHYMA: Normal. There is no mass, intracerebral hemorrhage,or CT signs of acute infarction. CEREBELLUM: The cerebellum is normal. BRAINSTEM: The brainstem expected course of the cranial nerves isnormal. CALVARIUM: No focal osseous lesion. VASCULAR SYSTEM: Normal VISUALIZED PARANASAL SINUSES: The visualized paranasal sinuses areclear. VISUALIZED ORBITS: Normal SELLA AND SKULL BASE: The sellar region and skull base are normal. IMPRESSION: No acute abnormality. No evidence of hemorrhage or acute infarction. Report reviewed and signed by : Dr. Kristopher Sarkar MD on 03/10/2025 1:06 PM.Workstation Name - [id number] -------- FINAL REPORT -------- Dictated By: Kristopher Sarkar Dictated Date: 03/10/2025 13:02 ET Assigned Physician: Kristopher Sarkar Reviewed and Electronically Signed By: Kristopher Sarkar Signed Date: 03/10/2025 13:06 ET Workstation ID: [id number] Transcribed By: Self Edit Transcribed Date: 03/10/2025 13:02 ET us Jean CLEARY IMG CT PROCEDURES Final Res ult * Protime-INR (03/10/2025 12:44 PM EDT) Protime 11.5 10.5 - 13.3 sec LAB COAGULATION METHOD 03/10/2025 12:57 PM EDT [facility] INR 0.9 0.8 - 1.1 LAB COAGULATION METHOD 03/10/2025 12:57 PM EDT [facility] Blood Venous blood specimen / Unknown Venipuncture / Unknown 03/10/2025 12:44 PM EDT 03/10/2025 12:47 PM EDT Narrative [facility] - 03/10/2025 12:57 PM EDT Std. Therapy 2.0-3.0 INR High Dose Therapy 2.5-3.5 INR Ranges may vary depending on clinical indications and protocol. Jean CLEARY LAB BLOOD ORDERABLES Final Result [facility] [address] [place] [address], [place] [phone] * POCT Glucose, blood (03/10/2025 12:43 PM EDT) [facility] Glucose POCT 91 70 - 199 mg/dL 03/10/2025 12:43 PM EDT [facility] Comment: Glucose Reference Range: Normal fasting 70 mg/dL - 99 mg/dL Non-fasting 70 mg/dL - 199 mg/dL Blood Capillary blood specimen / Unknown 03/10/2025 12:43 PM EDT 03/10/2025 12:44 PM EDT us Generic Provider Poct LAB POINT OF CARE TEST DOCKED DEVICE UNSOLICITED RESULTS Final Result Performing Organization Address City/[facility]/ZIP Co de Phone Number [facility] [address] [place] [address], [place] [phone] * Troponin I high sensitivity (03/10/2025 12:37 PM EDT) [facility] High Sensitivity Troponin I 4 0 - 14 ng/L LAB CHEMISTRY METHOD 03/10/2025 1:16 PM EDT [facility] Blood Venous blood specimen / Unknown Venipuncture / Unknown 03/10/2025 12:37 PM EDT 03/10/2025 12:39 PM EDT Narrative [facility] - 03/10/2025 1:16 PM EDT HSTnI results stratify to HIGH RISK category if any value >100 ng/L or delta at 1 hour is greater than or equal to 15 ng/L (male and female). Note: Delta values are not applicable if symptoms began more than 12 hours pre-arrival. Risk stratification should include the calculation of the HEART score. Testing performed using [employer] Access AccuTnI+3 Assay. us Jean Vieyra DO LAB BLOOD ORDERABLES Final Re sult [facility] [address] [place] [address], * (ABNORMAL) CBC auto differential (03/10/2025 12:37 PM EDT) [facility] WBC 4.3 4.0 - 10.5 K/mcL LAB HEMETOLOGY METHOD 03/10/2025 12:42 PM EDT [facility] RBC 4.01(L) 4.20 - 5.40 M/mcL LAB HEMETOLOGY METHOD 03/10/2025 12:42 PM EDT [facility] Hemoglobin 12.9 12.5 - 16.0 g/dL LAB HEMETOLOGY METHOD 03/10/2025 12:42 PM EDT [facility] Hematocrit 37.8 37.0 - 47.0 % LAB HEMETOLOGY METHOD 03/10/2025 12:42 PM EDT [facility] MCV 94.3 78.0 - 100.0 FL LAB HEMETOLOGY METHOD 03/10/2025 12:42 PM EDT [facility] MCH 32.2 25.0 - 33.0 pcg LAB HEMETOLOGY METHOD 03/10/2025 12:42 PM EDT [facility] MCHC 34.1 32.0 - 36.0 g/dL LAB HEMETOLOGY METHOD 03/10/2025 12:42 PM EDT [facility] RDW 13.5 12.1 - 16.2 % LAB HEMETOLOGY METHOD 03/10/2025 12:42 PM EDT [facility] Platelets 291 150 - 450 K/mcL LAB HEMETOLOGY METHOD 03/10/2025 12:42 PM EDT [facility] MPV 9.4 7.4 - 11.4 FL LAB HEMETOLOGY METHOD 03/10/2025 12:42 PM EDMT. [facility] Neutrophils Relative 63.6 44.0 - 74.0 % LAB HEMETOLOGY METHOD 03/10/2025 12:42 PM [facility] Lymphocytes Relative 25.8 20.0 - 48.0 % LAB HEMETOLOGY METHOD 03/10/2025 12:42 PM [facility] Monocytes Relative 8.5 2.0 - 12.0 % LAB HEMETOLOGY METHOD 03/10/2025 12:42 PM [facility] Eosinophils Relative 1.4 0.0 - 6.0 % LAB HEMETOLOGY METHOD 03/10/2025 12:42 PM [facility] Basophils Relative 0.5 0.0 - 2.0 % LAB HEMETOLOGY METHOD 03/10/2025 12:42 PM [facility] Neutrophils Absolute 2.71 1.80 - 7.80 K/mcL LAB HEMETOLOGY METHOD 03/10/2025 12:42 PM [facility] Lymphocytes Absolute 1.10 1.00 - 3.20 K/mcL LAB HEMETOLOGY METHOD 03/10/2025 12:42 PM [facility] Monocytes Absolute 0.36 0.00 - 0.80 K/mcL LAB HEMETOLOGY METHOD 03/10/2025 12:42 PM [facility] Eosinophils Absolute 0.06 0.00 - 0.50 K/mcL LAB HEMETOLOGY METHOD 03/10/2025 12:42 PM [facility] Basophils Absolute <0.03 0.00 - 0.20 K/mcL LAB HEMETOLOGY METHOD 03/10/2025 12:42 PM [facility] Blood Venous blood specimen / Unknown Venipuncture / Unknown 03/10/2025 12:37 PM EDT 03/10/2025 12:38 PM EDT us Jean Vieyra DO LAB BLOOD ORDERABLES Final Re sult Performing Organization Address [facility]/ZIP Co de Phone Number [facility] [address] [place] [address], [place] [phone] * B-type natriuretic peptide (03/10/2025 12:37 PM EDT) [facility] BNP 14 0 - 100 pcg/mL LAB CHEMISTRY METHOD 03/10/2025 1:16 PM EDT [facility] Blood Venous blood specimen / Unknown Venipuncture / Unknown 03/10/2025 12:37 PM EDT 03/10/2025 12:39 PM EDT us Jean Vieyra DO LAB BLOOD ORDERABLES Final Re sult Performing Organization Address [facility] de Phone Number [facility] [address] [place] [address], [place] [phone] * Magnesium (03/10/2025 12:37 PM EDT) [facility] Magnesium 1.9 1.7 - 2.8 mg/dL LAB CHEMISTRY METHOD 03/10/2025 1:19 PM EDT [facility] Comment:Slight Hemolysis may affect test result(s). Blood Venous blood specimen / Unknown Venipuncture / Unknown 03/10/2025 12:37 PM EDT 03/10/2025 12:39 PM EDT us Jean Vieyra DO LAB BLOOD ORDERABLES Final Re sult Performing Organization Address [facility] Co de Phone Number [facility] [address] [place] [address], [place] [phone] * (ABNORMAL) Comprehensive metabolic panel (03/10/2025 12:37 PM EDT) Sodium 139 135 - 145 mmol/L LAB CHEMISTRY METHOD 03/10/2025 1:19 PM [facility] Potassium 4.3 3.5 - 5.1 mmol/L LAB CHEMISTRY METHOD 03/10/2025 1:19 PM [facility] Comment:Slight Hemolysis may affect test result(s). Chloride 104 98 - 107 mmol/L LAB CHEMISTRY METHOD 03/10/2025 1:19 PM [facility] CO2 29 24 - 32 mmol/L LAB CHEMISTRY METHOD 03/10/2025 1:19 PM [facility] Anion Gap 6 5 - 14 LAB CHEMISTRY METHOD 03/10/2025 1:19 PM [facility] Glucose 104 70 - 199 mg/dL LAB CHEMISTRY METHOD 03/10/2025 1:19 PM [facility] BUN 15 7 - 17 mg/dL LAB CHEMISTRY METHOD 03/10/2025 1:19 PM [facility] Creatinine 0.64 0.50 - 1.00 mg/dL LAB CHEMISTRY METHOD 03/10/2025 1:19 PM [facility] eGFR 105 >=60 mL/min/1. 73m2 LAB CHEMISTRY METHOD 03/10/2025 1:19 PM [facility] Comment:Calculation based on the Chronic Kidney Disease Epidemiology Collaboration (CKD-EPI) equation refit without adjustment for race. BUN/Creatinine Ratio 23.4(H) 12.0 - 20.0 LAB CHEMISTRY METHOD 03/10/2025 1:19 PM [facility] Calcium 8.5 8.4 - 10.2 mg/dL LAB CHEMISTRY METHOD 03/10/2025 1:19 PM [facility] AST (SGOT) 32 5 - 40 unit/L LAB CHEMISTRY METHOD 03/10/2025 1:19 PM EDT [facility] Comment:Slight Hemolysis may affect test result(s). ALT (SGPT) 31 7 - 52 unit/L LAB CHEMISTRY METHOD 03/10/2025 1:19 PM EDT [facility] Alkaline Phosphatase 62 34 - 104 unit/L LAB CHEMISTRY METHOD 03/10/2025 1:19 PM EDT [facility] Total Protein 6.8 6.4 - 8.5 g/dL LAB CHEMISTRY METHOD 03/10/2025 1:19 PM EDT [facility] Albumin 4.4 3.5 - 5.0 g/dL LAB CHEMISTRY METHOD 03/10/2025 1:19 PM EDT [facility] Total Bilirubin 0.3 0.3 - 1.0 mg/dL LAB CHEMISTRY METHOD 03/10/2025 1:19 PM EDT [facility] Blood Venous blood specimen / Unknown Venipuncture / Unknown 03/10/2025 12:37 PM EDT 03/10/2025 12:39 PM EDT Jean Vieyra DO LAB BLOOD ORDERABLES Final Re sult [facility] [address] [place] [address], * ECG 12 lead (03/10/2025 12:21 PM EDT) Ventricular Rate ECG 73 BPM GEMUSE Atrial Rate 73 BPM GEMUSE P-R Interval 144 ms GEMUSE QRS Duration 86 ms GEMUSE Q-T Interval 378 ms GEMUSE QTc 416 ms GEMUSE P Wave [place] 52 degrees GEMUSE R [place] 12 degrees GEMUSE T [place] 29 degrees GEMUSE ECG Interpretation Normal sinus rhythm Normal ECG When compared with ECG of 25-JUL-2023 21:57, No significant change was found Confirmed by Vinod Franklin ([id number]) on 03/11/2025 2:41:54 PM GEMUSE 03/10/2025 12:2 1 PM EDT 03/11/2025 2:41 PM EDT Jean CLEARY ECG ORDERABLES Final Resul t GEMUSE * Hemoglobin A1c (09/26/2023) Pathologist [facility] Hemoglobin A1C 5.1 <=6.5 % Blood Venous blood specimen / Unknown Result [facility] Provider LAB BLOOD ORDERABLES Awa l Result * Colonoscopy (05/13/2020) [facility] Colonoscopy Abstracted, No interpretation Anatomical Region Laterality Modality Other Historical Provider HEALTH MAINTENANCE Final Result * Cervical Cancer Screening: HPV (04/09/2018) [facility] Cervical Cancer Screening: HPV Abstracted ,Negative Result [facility] Historical Provider HEALTH MAINTENANCE Final Result * Urine Albumin Creatinine Ratio (12/06/2017) Pathologist [facility] Urine Albumin Creatinine Ratio Abstracted Result [facility] Provider HEALTH MAINTENANCE Final Result * Lipid panel (12/06/2017) [facility] LDL/HDL Ratio 3 0 - 4 Triglycerides 140 0 - 150 mg/dL Cholesterol 190 0 - 200 mg/dL HDL 75 >=40 mg/dL LDL Cholesterol 87 0 - 100 mg/dL Blood Venous blood specimen / Unknown Result [facility] Historical Provider LAB BLOOD ORDERABLES Awa l Result from Last 3 Months or Most Recently Relevant to Health Maintenance Insurance MEDICAID - [place] Care Teams Numerologist Relationship Specialty Start Date End Date Gabbie Cisneros MD [address] [place] [phone] PCP - General 11/17/18
--- OUTSIDE RECORDS SUMMARY | 2025-06-03 12:46 | XMS_ITS | Clinical Summary ---
Author Organization [facility] Address [address] [place] [address] Care Team Providers Care Medical Records Specialist Name Role Phone Gabbie Cisneros Primary Care Provider [phone] Allergies Active Allergy Reactions Criticality Noted Date [...] by mouth every 8 hours as needed. 3 Active Arthritis Pain Relief, acetam, 650 mg 8 hr tablet Take 650 mg by mouth every 8 hours as needed. 2 Active Proventil HFA 90 mcg/actuation inhaler 2 puffs every 4 hours as needed. 3 Active amitriptyline (ELAVIL) 10 mg tablet Take 10-20 mg by mouth nightly. 3 Active ARIPiprazole (ABILIFY) 20 mg tablet TAKE ONE TABLET AT BEDTIME 3 Active aspirin 81 mg EC tablet TAKE ONE TABLET AT BEDTIME 3 Active atorvastatin (LIPITOR) 10 mg tablet Take 10 mg by mouth nightly. 3 Active baclofen (LIORESAL) 10 mg tablet Take 1 tablet by mouth daily. Active FreeStyle [place] Lite meter TEST BLOOD SUGAR DIRECTED 2 Active Freestyle Lite test strips TEST BLOOD SUGAR TWICE DAILY 3 Active All Day Allergy, cetirizine, 10 mg tablet Take 10 mg by mouth daily as needed. 3 Active clonazePAM (KlonoPIN) 2 mg disintegrating tablet Dissolve 2 mg in the mouth once a day. 3 Active cyclobenzaprine (FLEXERIL) 5 mg tablet TAKE 1 TO 2 TABLETS BY MOUTH THREE TIMES DAILY FOR 14 DAYS NEEDED FOR MUSCLE SPASM 2 Active EPINEPHrine (EPIPEN) 0.3 mg/0.3 mL injection syringe SMARTSIG:IM As Directed 2 Active Aimovig Autoinjector 140 mg/mL auto-injector SMARTSI Milligram(s) SUB-Q Once a Month 3 Active esomeprazole (NexIUM) 20 mg capsule Take 1 capsule by mouth daily. 2 Active Premarin 0.625 mg/gram vaginal cream SMARTSI.5 Gram(s) Vaginal Twice a Week 3 Active finasteride (PROSCAR) 5 mg tablet Take 5 mg by mouth once a day. 3 Active fluocinolone (DERMA-SMOOTHE) 0.01 % external oil Apply topically to the affected area 3 times a day. 3 Active hydrocortisone 1% cream 2 Active hydrOXYzine HCL (ATARAX) 25 mg tablet TAKE ONE TABLET AT BEDTIME 3 Active klgqqwrmzbfx-Eo-gv on-minerals tablet Take 1 tablet by mouth. 2 Active TRUEplus Glucose 4 gram chewable tablet chew FOUR tablets NEEDED FOR LOW BLOOD SUGAR (<70mg/dL), REPEAT IN 15 MINUTES if still low [address] (CYMBALTA) 30 mg capsule TAKE ONE CAPSULE EVERY MORNING 3 Active loratadine (CLARITIN) 10 mg tablet Take 10 mg by mouth once a day. 3 Active ketorolac (ACULAR) 0.5% ophthalmic solution Instill 1 drop into affected eye three times a day as directed Start 2 days before surgery. Taper as directed. 3 Active ketoconazole (NIZORAL) 2% shampoo Apply topically to the affected area daily. 2 Active ketotifen (ZADITOR) 0.025 % ophthalmic solution Instill 1 drop into affected eye(s) every 12 (twelve) hours. 2 Active TRUEplus Lancets lancet 33 gauge TEST BLOOD SUGAR TWICE DAILY 3 Active magnesium oxide (MAG-OX) 400 mg (241.3 mg mag) tablet TAKE ONE TABLET AT BEDTIME 3 Active haloperidoL (HALDOL) 5 mg tablet TAKE ONE TABLET EVERY MORNING and TAKE TWO TABLETS EVERY DAY AT BEDTIME 4 Active calcium carbonate-vitamin D3 600 mg-10 mcg (400 unit) per tablet TAKE ONE TABLET TWICE DAILY AT NOON AND IN THE EVENING 4 Active ZOLMitriptan (ZOMIG) 5 mg tablet Take 5 mg by mouth. 2 Active vitamin A 3,000 mcg (10,000 unit) capsule Take 10,000 Units by mouth once a day. Active verapamil SR (CALAN SR) 120 mg tablet SMARTSI Tablet(s) By Mouth Every Night Active triamcinolone acetonide (KENALOG) 0.1% cream SMARTSIG:Spari ngly Topical Daily Active SUMAtriptan (IMITREX) 50 mg tablet Take 50 mg by mouth every 2 hours as needed. Active sertraline (ZOLOFT) 100 mg tablet Take 100 mg by mouth daily. 3 Active rOPINIRole (REQUIP) 0.25 mg tablet Take 0.25 mg by mouth. Active riboflavin (VITAMIN B2) 100 mg tablet Take 100 mg by mouth 2 times daily. 3 Active pyridoxine (VITAMIN B6) 50 mg tablet SMARTSI Tablet(s) By Mouth Twice Daily Active montelukast (SINGULAIR) 10 mg tablet SMARTSI Tablet(s) By Mouth Every Night Active minoxidiL (LONITEN) 2.5 mg tablet TAKE ONE TABLET EVERY MORNING 4 Active hydroCHLOROthiazid e (HYDRODIURIL) 25 mg tablet Take 25 mg by mouth once a day. Active Advair HFA 115-21 mcg/actuation inhaler SMARTSI Inhalation By Mouth Twice Daily Active atomoxetine (STRATTERA) 25 mg capsule SMARTSI Capsule(s) By Mouth Morning-Evenin g 4 Active cholecalciferol (VITAMIN D3) 2,000 unit tablet Take 2 tablets (4,000 Units total) by mouth once a day. 180 tablet 3 5 026 Active cabergoline (DOSTINEX) 0.5 mg tabletIndications: Pituitary microadenoma,Hyper prolactinemia (HCC) Take 1 tablet (0.5 mg total) by mouth 2 times a week. 24 tablet 5 5 Active Active Problems Problem Noted Date Diagnosed [...] Encounters Date Type Department Care Team Description 04/28/2025 Refill [facility] [address] [place] [address] Paint Stripper: Pao Sue, Zoila Everett NP Pituitary microadenoma (HCC); Hyperprolactinemia (HCC) 03/12/2025 Results Follow-Up [facility] [address] [place] [address] Paint Stripper: Britni Choi MD 03/11/2025 9:00 AM EDT Follow-Up [facility] [address] [place] [address] Paint Stripper: Britni Choi MD Pituitary microadenoma (HCC) (Primary Dx); Hyperprolactinemia (HCC); Adverse effect of cabergoline; Hyperparathyroidism (HCC); Parathyroid adenoma; Vitamin D deficiency 03/10/2025 Telephone [facility] [address] [place] [address] Paint Stripper: Pao Valdez Telephone Intake, Staff PAC Patient Request Call Back; PAC Appt Request - Established from Last [...] Sign Reading Time Taken Comments Blood Pressure 115/73 03/11/2025 8:49 AM EDT Pulse 76 03/11/2025 8:49 AM EDT Temperature - - Respiratory Rate - - Oxygen Saturation - - Inhaled Oxygen Concentration - - Weight 80.8 kg (178 lb 2.1 oz) 03/11/2025 8:49 A M EDT Height 160 cm (5' 2.99 ) 03/29/2024 1:53 PM EDT Body Mass Index 31.56 03/29/2024 1:53 PM EDT Plan of Treatment Upcoming Encounters Date Type Department Care Team (Late st Contact Info) Description 08/27/2025 11:00 AM EST Appointment [facility] [address] [place] [address] 10/01/2025 2:00 PM EST Follow-Up [facility] [address] [place] [address] Paint Stripper: Britni Choi MD [address] [place], [place] [id number] Health Maintenance Due Date Last Done Comments Cologuard 1970 Colonoscopy 1969 HIV Screening 1970 HPV and Pap Smear 1969 Hepatitis C Screening 1969 Sigmoidoscopy 1969 Ophthalmology Exam 12/10/1979 Urine Microalbumin 12/10/1979 Mammogram 2009 Pneumococcal Vaccine: 50+ Ye ars (2 of 2 - PCV) 04/16/2019 04/16/2018, 02/05/2018, 03/12/2013, Additional history exists CT Lung Cancer Screening (Baseline) 12/10/2019 Hemoglobin A1C 04/06/2023 10/07/2022, 08/23/2022 Alcohol/Substance Use Screening 08/21/2024 Depression Screening and Follow-Up 08/21/2024 Social Drivers of Health Gabriela ual Screening 08/21/2024 Colon Cancer Screening 09/26/2024 FOBT / Fit Test 09/26/2024 09/26/2023, 07/21, 07/18/2022 COVID-19 Vaccine ( - 2024-2 6 season) 2025 11/12/2021, 01/01/2021, 12/11/2020 Influenza Vaccine (#1) 2025 3, 05/11/2022, 07/02/2021, Additional history exists Basic Metabolic Panel 03/10/2026 03/10/2025 , 06/14/2024, 03/29/2024, Additional history exists Cervical Cancer Screening 12/11/2026 Pap Smear 12/11/2026 12/12/2023, 04/09/2018 DTaP,Tdap,and Td Vaccines (3 - Td or Tdap) 04/16/2028 04/16/2018, 03/12/2013 RSV Vaccine (60+ years old a nd patients) (1 - 1-dose 75+ series) 2044 Hepatitis B Vaccines Completed 04/15/2014, 12/18/2013, 11/14/2013 Zoster Vaccines Completed 09/10/2020, 07/09/2020 Procedures * Due to [place] state law, this organization might not be sharing negative HIV tests. Procedure Name Priority Date/Time Associated Diagnosis Comments MRI BRAIN WO CONTRAST Routine 03/13/2025 7:05 PM EDT Pituitary microadenoma (HCC) PROLACTIN Routine 03/11/2025 9:50 AM EDT Adverse effect of cabergoline VITAMIN D, 25-HYDROXY, TOTAL, IMMUNOASSAY Routine 03/11/2025 9:50 AM EDT Adverse effect of cabergoline CALCIUM Routine 03/11/2025 9:50 AM EDT Adverse effect of cabergoline ALBUMIN Routine 03/11/2025 9:50 AM EDT Adverse effect of cabergoline TSH Routine 03/11/2025 9:50 AM EDT Adverse effect of cabergoline T4, FREE Routine 03/11/2025 9:50 AM EDT Adverse effect of cabergoline BASIC METABOLIC PANEL Routine 03/29/2024 3:51 PM EDT Pituitary microadenoma HEMOGLOBIN A1C Routine 10/07/2022 2:01 PM EST Type 2 diabetes mellitus without complication, without long-term current use of insulin from Last 3 Months or Most Recently Relevant to Health Maintenance Results * Due to [place] state law, this organization might not be sharing negative HIV tests. * MRI brain without contrast (03/13/2025 7:05 PM EDT) Anatomical Region Laterality Modality Head and Neck Magnetic Resonan ce 03/13/2025 6:45 PM EDT Narrative 03/17/2025 5:09 PM EDT [facility] Accession Number: [id number] Patient Name: Radha Fernandez Date of : 1970 Date of Exam: 03-13-2025 Referring Physician: Nadege Estrada [facility]End[facility]inology [address] [place] [address] [id number] [place] [address] Exam: MR Brain (C-) CPT 39547 Room Description: [facility] 1.5 HISTORY: Microprolactinoma. COMPARISON: MRI brain, 02/08/2023. CT head, 04/08/2023. MRI pituitary, 10/01/2022. FINDINGS: There is a lobulated T1 hypointense/T2 hyperintense lesion within the inferior right margin of the pituitary gland with apparent remodeling of the clivus. This is probably similar to the pituitary MRI from 2022. Normal T1 bright pituitary bright spot is present. The infundibulum is midline and normal in thickness. Optic optic nerve and optic chiasm are normal. No definite soft tissue extension into the cavernous sinus on either side. Hypothalamus is normal. 5 mm dural based calcification over the lateral right frontal convexity is unchanged without mass effect on the underlying parenchyma. Remaining visualized brain is grossly unremarkable. IMPRESSION: 1. No definite change compared to pituitary MRI from 10/01/2022 given that contrast was not given on the current study. Electronically Signed By: Amy Dixon MD Procedure Note Provider, Louis - 03/17/2025 [facility] Accession Number: [id number] Patient Name: Radha Fernandez Date of : 1970 Date of Exam: 03-13-2025 Referring Physician: Estrada, Nadege U [facility]End[facility]inology [id number] [place] [address] Exam: MR Brain (C-) CPT 03827 Room Description: [facility] 1.5 HISTORY: Microprolactinoma. COMPARISON: MRI brain, 02/08/2023. CT head, 04/08/2023. MRI pituitary, 10/01/2022. FINDINGS: There is a lobulated T1 hypointense/T2 hyperintense lesion within the inferior right margin of the pituitary gland with apparent remodeling of the clivus. This is probably similar to the pituitary MRI from 2022. Normal T1 bright pituitary bright spot is present. The infundibulum is midline and normal in thickness. Optic optic nerve and optic chiasm are normal. No definite soft tissue extension into the cavernous sinus on either side. Hypothalamus is normal. 5 mm dural based calcification over the lateral right frontal convexity is unchanged without mass effect on the underlying parenchyma. Remaining visualized brain is grossly unremarkable. IMPRESSION: 1. No definite change compared to pituitary MRI from 10/01/2022 given that contrast was not given on the current study. Electronically Signed By: Amy Dixon MD Nadege Estrada MD IM MRI PROCEDURES Final Result * (ABNORMAL) Vitamin D, 25-Hydroxy, Total, Immunoassay (03/11/2025 9:50 AM EDT) Calcidiol+ercalc idiol 16(L) 30 - 100 ng/mL 03/12/2025 12:07 AM EDT [facility] Comment: Vitamin D Status 25-OH Vitamin D: Deficiency: <20 ng/mL Insufficiency: 20 - 29 ng/mL Optimal: > or = 30 ng/mL For 25-OH Vitamin D testing on patients on D2-supplementation and patients for whom quantitation of D2 and D3 fractions is required, the QuestAssureD() 25-OH VIT D, (D2,D3), LC/MS/MS is recommended: order code [id number] (patients >2yrs). See Note 1 Note 1 For additional information, please refer to http://education.[employer].Memorado/faq/AEG102 (This link is being provided for informational/ educational purposes only.) Blood Structure of peripheral vein / Unknown Venipuncture / Unknown 03/11/2025 9:50 AM EDT 03/11/2025 10:05 AM EDT Narrative [facility] - 03/12/2025 12:07 AM EDT [facility] Received Date:[id number] Nadege Estrada MD LAB BLOOD ORDERABLES Final Resu lt Performing Organization Address City/[facility]/ZIP Co de Phone Number [facility] [address] [facility] [address], [place] [address], [place] [phone] [facility] [address] [facility] [address], [place] [address], [place] [phone] * (ABNORMAL) Prolactin (03/11/2025 9:50 AM EDT) Prolactin 93.30(H) 4.79 - 23.30 ng/mL 03/11/2025 10:42 AM EDT [facility] Comment:This reference range is established for non- females only. Blood Structure of peripheral vein / Unknown Venipuncture / Unknown 03/11/2025 9:50 AM EDT 03/11/2025 10:05 AM EDT us Nadege Estrada MD LAB BLOOD ORDERABLES Final Resu lt Performing Organization Address City/[facility]/ZIP Co de Phone Number [facility] [address] [place] [phone], * TSH (03/11/2025 9:50 AM EDT) TSH 1.840 0.280 - 3.890 uIU/mL 03/11/2025 10:42 AM EDT [facility] Comment: Females: 1st trimester 0.150-4.000 IU/mL 2nd trimester 0.310-4.170 IU/mL 3rd trimester 0.380-4.150 IU/mL Blood Structure of peripheral vein / Unknown Venipuncture / Unknown 03/11/2025 9:50 AM EDT 03/11/2025 10:05 AM EDT Nadege Estrada MD LAB BLOOD ORDERABLES Final Resu lt Performing Organization Address City/[facility]/ZIP Co de Phone Number [facility] [address] [place] [address], [place] * T4, Free (03/11/2025 9:50 AM EDT) Free T4 0.91 0.80 - 1.80 ng/dL 03/11/2025 10:42 AM EDT [facility] Comment: Females: (ng/dL) First Trimester 0.95-1.58 ng/dL Second Trimester 0.76-1.24 ng/dL Third Trimester 0.70-1.25 ng/dL Dietary supplements containing biotin may interfere in assays and may skew analyte results to be falsely high. For patients receiving the recommended daily doses of biotin, draw samples at least 8 hours following the last biotin supplementation. For patients on maria isabel-doses of biotin supplements, draw samples at least 72 hours following the last biotin supplementation. Effective 2024, Free T4 reference range (>=18 years old) is 0.8 - 1.8 ng/dL, replacing the previous range of 0.93 - 1.70 ng/dL. Blood Structure of peripheral vein / Unknown Venipuncture / Unknown 03/11/2025 9:50 AM EDT 03/11/2025 10:05 AM EDT Nadege Estrada MD LAB BLOOD ORDERABLES Final Resu lt [facility] [address] [place] [address], [place] * Calcium (03/11/2025 9:50 AM EDT) Calcium 9.1 8.6 - 10.5 mg/dL 03/11/2025 10:42 AM EDT [facility] Blood Structure of peripheral vein / Unknown Venipuncture / Unknown 03/11/2025 9:50 AM EDT 03/11/2025 10:05 AM EDT us Nadege Estrada MD LAB BLOOD ORDERABLES Final Resu lt Performing Organization Address [facility]/ZIP Co de Phone Number [facility] [address] [place] [phone], * Albumin (03/11/2025 9:50 AM EDT) Albumin 4.3 3.5 - 5.2 g/dL 03/11/2025 10:42 AM EDT [facility] Blood Structure of peripheral vein / Unknown Venipuncture / Unknown 03/11/2025 9:50 AM EDT 03/11/2025 10:05 AM EDT Nadege Estrada MD LAB BLOOD ORDERABLES Final Resu lt Performing Organization Address [facility] Co de Phone Number [facility] [address] [place] [phone], [place] * Basic Metabolic Panel (03/29/2024 3:51 PM EDT) NA 141 135 - 145 mmol/L 03/29/2024 5:29 PM EDT [facility] K 4.0 3.5 - 5.3 mmol/L 03/29/2024 5:29 PM EDT [facility] Cl 104 98 - 107 mmol/L 03/29/2024 5:29 PM EDT [facility] CO2 27 24 - 32 mmol/L 03/29/2024 5:29 PM EDT [facility] BUN 11 7 - 23 mg/dL 03/29/2024 5:29 PM EDT [facility] Creatinine 0.65 0.50 - 1.20 mg/dL 03/29/2024 5:29 PM EDT [facility] Glucose 98 65 - 99 mg/dL 03/29/2024 5:[address] [facility] Calcium 8.7 8.6 - 10.5 mg/dL 03/29/2024 5:[address] [facility] Anion Gap 10 5 - 15 03/29/2024 5:[address] [facility] eGFR >90 >=60 mL/min/1. 73m2 03/29/2024 5:[address] [facility] Comment:The estimated glomer ular [...] 3:51 PM EDT 03/29/2024 4:43 PM EDT Zoila Sue FAMILY DINNER SERVICE SPECIALIST LAB BLOOD ORDERABLES Final Result [facility] [address] [place] [address], * Hemoglobin A1c (10/07/2022 2:01 PM EST) Hemoglobin A1C 4.9 <5.7 % of total Hgb 10/08/2022 6:38 AM EST [facility] Comment: For the purpose of screening for the presence of diabetes: <5.7% Consistent with the absence of diabetes 5.7-6.4% Consistent with increased risk for diabetes (prediabetes) > or =6.5% Consistent with diabetes This assay result is consistent with a decreased risk of diabetes. Currently, no consensus exists regarding use of hemoglobin A1c for diagnosis of diabetes in children. According to [place] Diabetes Association (ADA) guidelines, hemoglobin A1c <7.0% represents optimal control in non- diabetic patients. Different metrics may apply to specific patient populations. Standards of Medical Care in Diabetes(ADA). eAG (MG/DL) 94 mg/dL 10/08/2022 6:38 AM EST [facility] eAG (MMOL/L) 5.2 mmol/L 10/08/2022 6:38 AM EST [facility] Blood Structure of peripheral vein / Unknown Venipuncture / Unknown 10/07/2022 2:01 PM EST 10/07/2022 2:33 PM EST [facility] - 10/08/2022 6:38 AM EST [facility] Received Date:[id number] us Zoila Sue FAMILY DINNER SERVICE SPECIALIST LAB BLOOD ORDERABLES Final Result Performing Organization Address City/State/[facility] Co de Phone Number [facility] [address] [facility] [address], [place] [address], [facility] [address] [facility] [address] [facility], [place] [address], from Last 3 Months or Most Recently Relevant to Health Maintenance Insurance Care Teams Medical Records Specialist Relationship Specialty Start Date End Date Gabbie Cisneros [address] [place] [id number] PCP - General Family Medicine 06/15/22
--- OUTSIDE RECORDS SUMMARY | 2025-06-03 12:46 | XMS_ITS ---
Author Organization [employer] Address [address] [facility] 7t [place] [address] Care Team Providers Care White Mixing Operator Name Role Phone Zac Hugo CNP Primary Care Provider [phone] Ariel Jose RN Unavailable [phone] Amada Walters Unavailable CHW Complex Status:Outreach In Progress (Enrolling) Start date:04/14/2025 Enrollment reason:ADT Feed Overview [facility] ED 04/11/25. Please outreach for enrollment. Case Team Name Relationship Phone Amada Walters(Responsible Staff) [phone] Continued Care and Services Coordination
--- OUTSIDE RECORDS SUMMARY | 2025-06-03 12:46 | XMS_ITS | Encounter Summary ---
Author Organization [employer] Address 75 [facility] 7t [place] [address] Care Team Providers Care Finisher Polisher Name Role Phone Gabbie Cisneros MD Primary Care Provider Zac Hugo CNP Primary Care Provider [phone] Ariel Jose RN Unavailable [phone] Amada Walters Unavailable Reason for Visit * Reason Comments Med Refill Encounter Details Date Type Department Care Team (Late st Contact Info) Description 03/22/2025 Refill [facility] CHC MED & PEDS [address] [place], [place] [phone] Gabbie Cisneros MD [address] [place], [place] [phone] Unspecified asthma with (acute) exacerbation Social History Tobacco Use Types Packs/Day Years [...] Description 06/04/2025 9:30 AM EDT Office Visit [facility] MED & PEDS [address] [place] [address] Gabbie Cisneros MD 505 [place] [address] 06/09/2025 11:00 AM EDT Medication Management [facility] MED & PEDS [address] [place] [address] Ann Marie Garvey, PharmD [address] [place] [address] 06/10/2025 10:20 AM EDT Office Visit [facility] OPTOMETRY [address] [place] [address] documented as of this encounter Goals Goal Patient Goal Type Associated Problems Recent Progress Patient-Stated? Author Patient will adhere to medication regimen General No Jerry Shelby, PharmD Help patient manage asthma General No Jerry Shelby, PharmD Note: Reduce use of LUANNE to 2x/week documented as of this encounter Visit Diagnoses Diagnosis Unspecified asthma with (acute) exacerbation documented in this encounter Additional Health Concerns Assessment Noted Time PHQ-9 Depression Total Score: 10 024 9:42 AM EDT documented as of this encounter Care Teams Finisher Polisher Relationship Specialty Start Date End Date Gabbie Cisneros MD [address] [place] [address] PCP - General Family Medicine 05/02/18 03/27/25 Zac Hugo CNP [address] [place] [address] PCP - General Family Medicine 03/28/25 Ariel Jose RN [address] [place] [address] Registered Nurse Family Medicine 04/14/25 Amada Walters 04/14/25 Saloni MoctezumaMachado Complaints CoordinatorTaco Maker 05/19/23 Rosemarie Palmer [address] [place] [address] Nurse Practitioner Neurology 09/18/23 Milad Mcfarland Complaints CoordinatorTaco Maker 10/01/24 documented as of this encounter
--- OUTSIDE RECORDS SUMMARY | 2025-06-03 12:46 | XMS_ITS | Clinical Summary ---
Author Organization [facility] Address [address] [place] [address] Care Team Providers Care Armature Winder [employer]otive Name Role Phone Gabbie Cisneros MD Primary Care Provider [phone] Allergies Active Allergy Reactions Criticality Noted Date Comments Banana 07/30/2022 Codeine 11/17/2018 Iodinated Contrast Media 07/26/2022 Can take with premeds (benadryl and steroid) Morphine 07/26/2022 Nuts 07/30/2022 Shellfish 07/30/2022 Mead 03/24/2024 Watermelon 07/30/2022 Medications Medication Sig Dispensed [...] Screening (Mammogram) 12/10/2019 COVID-19 Vaccine ( season) 2025 11/12/2021, 01/01/2021, [...] age to complete this topic Care Teams Armature [employer] Relationship Specialty Start Date End Date Gabbie Cisneros MD [address] [place] [address] PCP - General Adult Medicine 11/17/18
--- OUTSIDE RECORDS SUMMARY | 2025-06-03 12:46 | XMS_ITS ---
Author Organization [employer] Address 75 [facility] 7t [place] [address] Care Team Providers Care Commercial Leasing Agent Name Role Phone Zac Hugo CNP Primary Care Provider [phone] Ariel Jose RN Unavailable [phone] Amada Walters Unavailable CM Complex Status:Outreach In Progress (Enrolling) Start date:04/14/2025 Enrollment reason:ADT Feed Overview [facility] ED 04/11/25 Case Team Name Relationship Phone Ariel Jose RN(Responsible Staff) Registered Nurse [phone] Continued Care and Services Coordination
--- OUTSIDE RECORDS SUMMARY | 2025-06-03 12:46 | XMS_ITS | Encounter Summary ---
Author Organization [employer] Address [address] [facility] 7t [place] [address] Care Team Providers Care Umbrella Finisher Name Role Phone Gabbie Cisneros MD Primary Care Provider Zac Hugo CNP Primary Care Provider [phone] Ariel Jose RN Unavailable [phone] Amada Walters Unavailable Encounter Details Date Type Department Care Team (Late st Contact Info) Description 12/18/2023 Orders Only [facility] [address] [place] [address] Provider, MD Marina Social History Tobacco Use [...] Upcoming Encounters Date Type Department Care Team ([facility] st Contact Info) Description 06/04/2025 9:30 AM EDT Office Visit [facility] MED & PEDS 505 [place] [address] Gabbie Cisneros MD 505 [place] [address] 06/09/2025 11:00 AM EDT Medication Management [facility] MED & PEDS 505 [place] [address] Ann Marie Garvey, PharmD [address] [place] [address] 06/10/2025 10:20 AM EDT Office Visit [facility] OPTOMETRY [address] [place] [address] documented as of this encounter Goals Goal [...] documented as of this encounter Care Teams Umbrella Finisher Relationship Specialty Start Date End Date Gabbie Cisneros MD [address] [place] [address] PCP - General Family Medicine 05/02/18 03/27/25 Zac Hugo CNP [address] [place] [address] PCP - General Family Medicine 03/28/25 Ariel Jose RN [address] [place] [address] Registered Nurse Family Medicine 04/14/25 Amada Walters 04/14/25 Saloni Kaminski Slip Seat CovererEasement Man 05/19/23 Rosemarie Palmer [address] [place] [address] Nurse Practitioner Neurology 09/18/23 Milad Mcfarland Slip Seat CovererEasement Man 10/01/24 documented as of this encounter
--- OUTSIDE RECORDS SUMMARY | 2025-06-03 12:46 | XMS_ITS | Encounter Summary ---
Author Organization [employer] Address [address] [facility] [address] 7t [place] [address] Care Team Providers Care Lead Project Manager Name Role Phone Gabbie Cisneros MD Primary Care Provider [phone] Zac Hugo CNP Primary Care Provider [phone] Ariel Jose RN Unavailable [phone] Amada Walters Unavailable Reason for Visit * Reason Onset Date Comments Med Refill Appointment 2023 [facility] Encounter Details Date Type Department Care Team (Late st Contact Info) Description 2023 Refill [facility] MEDICINE [address] [place] [address] Andrew Lozano FNP Social History Tobacco Use [...] regarding to re-schedule her apt as tele-visit -. Pt agrees to schedule for 01/30/24. documented in this encounter Plan of Treatment Upcoming Encounters Date Type Department Care Team (Late st Contact Info) Description 06/04/2025 9:30 AM EDT Office Visit [facility] MED & PEDS [address] [place] [address] Gabbie Cisneros MD 505 [place] [address] 06/09/2025 11:00 AM EDT Medication Management [facility] MED & PEDS [address] [place] [address] Ann Marie Garvey PharmD [address] [place] [address] 06/10/2025 10:20 AM EDT Office Visit [facility] OPTOMETRY [address] [place] [address] documented as of this encounter Goals Goal Patient Goal Type Associated Problems Recent Progress Patient-Stated? Author Patient will adhere to medication regimen General No Jerry Sehlby, PharmD Help patient manage asthma General No Jerry Shelby, PharmD Note: Reduce use of LUANNE to 2x/week documented as of this encounter Visit Diagnoses Not on filedocumented in this encounter Additional Health Concerns Assessment Noted Time PHQ-9 Depression Total Score: 7 10/30/19 24 9:31 AM EDT documented as of this encounter Care Teams Lead Project Manager Relationship Specialty Start Date End Date Gabbie Cisneros MD [address] [place] [address] PCP - General Family Medicine 05/02/18 03/27/25 Zac Hugo CNP [address] [place] [address] PCP - General Family Medicine 03/28/25 Ariel Jose RN [address] [place] [address] Registered Nurse Family Medicine 04/14/25 Amada Walters 04/14/25 Saloni Kaminski Lathe TurnerAwning Maker 05/19/23 Rosemarie Palmer [address] [place] [address] Nurse Practitioner Neurology 09/18/23 Milad Mcfarland Lathe TurnerAwning Maker 10/01/24 documented as of this encounter
--- OUTSIDE RECORDS SUMMARY | 2025-06-03 12:47 | XMS_ITS | Encounter Summary ---
Author Organization [employer] Address [address] [facility] 7t [place] [address] Care Team Providers Care Duco Polisher Name Role Phone Gabbie Cisneros MD Primary Care Provider [phone] Zac Hugo CNP Primary Care Provider [phone] Ariel Jose RN Unavailable [phone] Amada Walters Unavailable Reason for Visit * Reason Onset Date Comments Nurse Triage 06/24/2024 Encounter Details Date Type Department Care Team (Late st Contact Info) Description 06/24/2024 Telephone [facility] CHC MED & PEDS [address] [place], [place] [phone] Gabbie Cisneros MD 505 [place], [place] [phone] Nurse Triage Social History Tobacco Use Types [...] Upcoming Encounters Date Type Department Care Team ([facility] Contact Info) Description 06/04/2025 9:30 AM EDT Office Visit [facility] MED & PEDS [address] [place] [address] Gabbie Cisneros MD 505 [place] [address] 06/09/2025 11:00 AM EDT Medication Management [facility] MED & PEDS [address] [place] [address] Ann Marie Garvey, PharmD 230 [place] [address] 06/10/2025 10:20 AM EDT Office Visit [facility] OPTOMETRY [address] [place] [address] documented as of this encounter Goals Goal [...] documented as of this encounter Care Teams Duco Polisher Relationship Specialty Start Date End Date Gabbie Cisneros MD [address] [place] [address] PCP - General Family Medicine 05/02/18 03/27/25 Zac Hugo CNP [address] [place] [address] PCP - General Family Medicine 03/28/25 Ariel Jose, ZULEYKA 505 [place] [address] Registered Nurse Family Medicine 04/14/25 Amada Walters 04/14/25 Saloni Kaminski Bicycle RepairmanFood Cooking Machine Operator 05/19/23 Rosemarie Palmer [address] [place] [address] Nurse Practitioner Neurology 09/18/23 Milad Mcfarland Bicycle RepairmanFood Cooking Machine Operator 10/01/24 documented as of this encounter
--- OUTSIDE RECORDS SUMMARY | 2025-06-03 12:47 | XMS_ITS | Encounter Summary ---
Author Organization [employer] Address 75 [facility] 7t [place] [address] Care Team Providers Care Recruiting Team Lead Name Role Phone Gabbie Cisneros MD Primary Care Provider [phone] Zac Hugo CNP Primary Care Provider [phone] Ariel Jose RN Unavailable [phone] Amada Walters Unavailable Reason for Visit * Reason Comments Med Refill Encounter Details Date Type Department Care Team (Late st Contact Info) Description 06/30/2023 Refill [facility] MED & PEDS [address] [place] [address] Andrew Lozano FNP Severe recurrent major depression [...] Upcoming Encounters Date Type Department Care Team ([facility] st Contact Info) Description 06/04/2025 9:30 AM EDT Office Visit [facility] MED & PEDS [address] [place] [address] Gabbie Cisneros MD 505 [place] [address] 06/09/2025 11:00 AM EDT Medication Management [facility] MED & PEDS [address] [place] [address] Ann Marie Garvey PharmD 230 [place] [address] 06/10/2025 10:20 AM EDT Office Visit [facility] OPTOMETRY [address] [place] [address] documented as of this encounter Goals Goal Patient Goal Type Associated Problems Recent Progress Patient-Stated? 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) Major depressive disorder, recurrent episode, severe, specified as with psychotic behavior documented in this encounter Additional Health Concerns Assessment Noted Time PHQ-9 Depression Total Score: 9 05/30/20 23 9:42 AM EDT documented as of this encounter Care Teams Recruiting Team Lead Relationship Specialty Start Date End Date Gabbie Cisneros MD 230 [place] [address] PCP - General Family Medicine 05/02/18 03/27/25 Zac Hugo CNP [address] [place] [address] PCP - General Family Medicine 03/28/25 Ariel Jose, ZULEYKA [address] [place] [address] Registered Nurse Family Medicine 04/14/25 Amada Walters 04/14/25 Saloni Kaminski Auto Finance Sales RepHelp Desk Administrator 05/19/23 Rosemarie Palmer [address] [place] [address] Nurse Practitioner Neurology 09/18/23 Milad Mcfarland Auto Finance Sales RepHelp Desk Administrator 10/01/24 documented as of this encounter
--- OUTSIDE RECORDS SUMMARY | 2025-06-03 12:47 | XMS_ITS | Encounter Summary ---
Author Organization [employer] Address 75 [facility] 7t [place] [address] Care Team Providers Care Wet Cleaner Machine Name Role Phone Gabbie Cisneros MD Primary Care Provider [phone] Zac Hugo CNP Primary Care Provider [phone] Ariel Jose RN Unavailable [phone] Amada Walters Unavailable Reason for Visit * Reason Comments Med Refill Encounter Details Date Type Department Care Team (Late st Contact Info) Description 10/13/2022 Refill [facility] MEDICINE [address] [place] [address] Andrew Lozano FNP Severe recurrent major depression [...] Description 06/04/2025 9:30 AM EDT Office Visit [facility] CHC MED & PEDS [address] [place] [address] Gabbie Cisneros MD 505 [place] [address] 06/09/2025 11:00 AM EDT Medication Management [facility] CHC MED & PEDS [address] [place] [address] Ann Marie Garvey, AlliD [address] [place] [address] 06/10/2025 10:20 AM EDT Office Visit [facility] OPTOMETRY [address] [place] [address] documented as of this encounter Visit Diagnoses Diagnosis 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) Major depressive disorder, recurrent episode, severe, specified as with psychotic behavior documented in this encounter Additional Health Concerns Assessment Noted Time PHQ-9 Depression Total Score: 15 023 9:30 AM EST documented as of this encounter Care Teams Wet Cleaner Machine Relationship Specialty Start Date End Date Gabbie Cisneros MD [address] [place] [address] PCP - General Family Medicine 05/02/18 03/27/25 Zac Hugo CNP [address] [place] [address] PCP - General Family Medicine 03/28/25 Ariel Jose, RN [address] [place] [address] Registered Nurse Family Medicine 04/14/25 Amada Walters 04/14/25 Saloni Kaminski Personnel Research ScientistPaper Box Cutter 05/19/23 Rosemarie Palmer [address] [place] [address] Nurse Practitioner Neurology 09/18/23 Milad Mcfarland Personnel Research ScientistPaper Box Cutter 10/01/24 documented as of this encounter
--- OUTSIDE RECORDS SUMMARY | 2025-06-03 12:47 | XMS_ITS | Encounter Summary ---
Author Organization [facility] Address [address] [facility] [address] [place] [address] Phone Care Team Providers Care Product Craftsman Name Role Phone Gabbie Cisneros MD Primary Care Provider [phone] Encounter Details Date Type Department Care Team (Late st Contact Info) Description 11/13/2023 Procedure Pass MRI, [facility] [place] [address] [address] [facility], [address] [place] [id number] Social History Tobacco Use Types Packs/Day Years Used Date Smoking Tobacco: Never Assessed Education Answer Date Recorded Are you interested in more education? Not on donnell e 03/03/2023 Are you concerned about learning? Not on file 03/03/2023 No 03/03/2023 No 03/03/2023 Digital Access Answer Date Recorded No 03/03/2023 No 03/03/2023 Reliable internet access at home? Not on file 03/03/2023 Device with a working camera? Not on file Intimate Partner Violence Answer Date R ecorded Are you denied basic needs s uch as food, clothing, or medical care? No 08/24/2023 In the past 12 months have y ou been in a relationship with a person who hurts, threatens, or tries to control you? No 08/24/2023 Are you denied basic needs s uch as food, clothing, or medical care? No 08/24/2023 In the past 12 months have y ou been in a relationship with a person who hurts, threatens, or tries to control you? No 08/24/2023 Comments Unknown Sex and Gender Information Value Date Recorded Sex Assigned at Female 03/06/2024 8:03 AM EDT Legal Sex Female 9:35 PM EDT Gender Identity Female 03/06/2024 8:03 AM EDT Sexual Orientation Straight 03/06/2024 8: 03 AM EDT documented as of this encounter Plan of Treatment Upcoming Encounters Date Type Department Care Team (Late st Contact Info) Description 06/27/2025 9:30 AM EST Telemedicine [facility] Department of Neurology [address] [facility]th [address], [address] [place] [address] Sunitha Cisneros MD [address] [place] [phone] [email or web address] 07/14/2025 1:30 PM EST Office Visit [address] [place] [address] Sunitha Cisneros MD [address] [place] [phone] [email or web address] Joanne Milton, PT [address] [place] [address] 07/22/2025 10:45 AM EST Office Visit [facility] [address] [place] [address] Sunitha Cisneros MD [address] [place] [phone] [email or web address] Joanne Milton, PT [address] [place] [address] 07/30/2025 11:00 AM EST Office Visit [facility] [address] [place] [address] Sunitha Cisneros MD [address] [place] [phone] [email or web address] Joanne Milton, PT [address] [place] [address] [email or web address] 08/06/2025 11:00 AM EST Office Visit [facility] [address] [place] [address] Sunitha Cisneros MD [address] [place] [phone] [email or web address] Joanne Milton, PT [address] [place] [address] [email or web address] 08/12/2025 11:30 AM EST Office Visit [facility] [address] [place] [address] Sunitha Cisneros MD [address] [place] [phone] [email or web address] Joanne Milton, PT [address] [place] [address] 08/18/2025 10:15 AM EST Office Visit [facility] [address] [place] [address] Sunitha Cisneros MD [address] [place] [phone] [email or web address] Joanne Milton, PT [address] [place] [address] 08/25/2025 11:00 AM EST Office Visit [facility] [address] [place] [address] Sunitha Cisneros MD [address] [place] [phone] [email or web address] Joanne Milton, PT [address] [place] [address] [email or web address] 09/02/2025 11:30 AM EST Office Visit [facility] [address] [place] [address] Sunitha Cisneros MD [address] [place] [phone] [email or web address] Joanne Milton, PT [address] [place] [address] [email or web address] documented as of this encounter Visit Diagnoses Not on filedocumented in this encounter Care Teams Product Craftsman Relationship Specialty Start Date End Date Gabbie Cisneros MD [address] [place] [address] PCP - General Family Medicine 04/14/23 documented as of this encounter Additional Source Comments The information contained in this document represents components of the legal health record. It is not the complete legal health record.[facility]
--- OUTSIDE RECORDS SUMMARY | 2025-06-03 12:47 | XMS_ITS | Encounter Summary ---
Author Organization [employer] Address [address] [facility] 7t [place] [address] Care Team Providers Care Coal Mine Inspector Name Role Phone Gabbie Cisneros MD Primary Care Provider [phone] Zac Hugo CNP Primary Care Provider [phone] Ariel Jose RN Unavailable [phone] Amada Walters Unavailable Reason for Visit * Reason Onset Date Comments Referral 04/09/2024 Encounter Details Date Type Department Care Team (Late st Contact Info) Description 04/09/2024 Telephone [facility] CHC MED & PEDS [address] [place], [place] [phone] Gabbie Cisneros MD [address] [place], [place] [phone] Referral Social History Tobacco Use Types Packs/Day [...] ([facility] st Contact Info) Description 06/04/2025 9:30 AM EDT Office Visit [facility] MED & PEDS [address] [place] [address] Gabbie Cisneros MD [address] [place], [place] 06/09/2025 11:00 AM EDT Medication Management [facility]C MED & PEDS [address] [place], [place] [phone] Ann Marie Garvey PharmD [address] [place], [place] 06/10/2025 10:20 AM EDT Office Visit [facility] OPTOMETRY [address] [place] [address] documented as of this encounter Goals Goal [...] documented as of this encounter Care Teams Coal Mine Inspector Relationship Specialty Start Date End Date Gabbie Cisneros MD [address] [place] [address] PCP - General Family Medicine 05/02/18 03/27/25 Zac Hugo CNP [address] [place] [address] PCP - General Family Medicine 03/28/25 Ariel Jose, ZULEYKA [address] [place], [place] Registered Nurse Family Medicine 04/14/25 Amada Walters 04/14/25 Saloni Kaminski Director Of Government SalesTransaction Manager 05/19/23 Rosemarie Palmer [address] [place] [address] Nurse Practitioner Neurology 09/18/23 Milad Mcfarland Director Of Government SalesTransaction Manager 10/01/24 documented as of this encounter
--- OUTSIDE RECORDS SUMMARY | 2025-06-03 12:47 | XMS_ITS | Encounter Summary ---
Author Organization [employer] Address [address] [facility] 7[address] [place] [address] Care Team Providers Care Client Business Manager Name Role Phone Gabbie Cisneros MD Primary Care Provider [phone] Zac Hugo CNP Primary Care Provider [phone] Ariel oJse RN Unavailable [phone] Amada Walters Unavailable Reason for Visit * Reason Onset Date Comments Appointment Request 06/24/2024 Encounter Details Date Type Department Care Team (Late st Contact Info) Description 06/24/2024 Telephone [facility] [address] [place], [place] [phone] Gabbie Cisneros MD [address] [place], [place] [phone] Appointment Request Social History Tobacco Use Types [...] Upcoming Encounters Date Type Department Care Team ([facility] st Contact Info) Description 06/04/2025 9:30 AM EDT Office Visit [facility] [address] [place] [address] Gabbie Cisneros MD [address] [place] [address] 06/09/2025 11:00 AM EDT Medication Management [facility] [address] [place] [address] Ann Marie Garvey, AlliD [address] [place], [place] [phone] 06/10/2025 10:20 AM EDT Office Visit [facility] OPTOMET[facility] [address] [place] [address] documented as of this encounter Goals Goal [...] documented as of this encounter Care Teams Client Business Manager Relationship Specialty Start Date End Date Gabbie Cisneros MD [address] [place] [address] PCP - General Family Medicine 05/02/18 03/27/25 Zac Hugo CNP [address] [place] [address] PCP - General Family Medicine 03/28/25 Ariel Jose, ZULEYKA [address] [place] [id number] Registered Nurse Family Medicine 04/14/25 Amada Walters 04/14/25 Saloni Kaminski [employer] 05/19/23 Rosemarie Palmer [address] [place] [address] Nurse Practitioner Neurology 09/18/23 Milad Mcfarland [employer] 10/01/24 documented as of this encounter
--- OUTSIDE RECORDS SUMMARY | 2025-06-03 12:47 | XMS_ITS | Clinical Summary ---
Author Organization [facility] Address [address] [address] Phone Care Team Providers Care Ratchet Setter Name Role Phone Gabbie Cisneros MD Primary Care Provider [phone] Allergies Active Allergy Reactions Criticality Noted Date Comments Gadolinium-Containing Contrast Media High 02/18/2015 Other reaction(s): facial swelling, itchiness, hive Iodinated Contrast Media Hives High 10/26/2017 Medications acetaminophen (TYLENOL) 650 MG CR tablet Take 650 mg by mouth every 8 (eight) hours as needed. Active acetaminophen (TYLENOL) 500 MG tablet Take 1,000 mg by mouth. 3 Active albuterol 2.5 mg /3 mL (0.083 %) nebulizer solution INHALE ONE AMPULE USING A NEBULIZER EVERY 6 HOURS 3 Active amitriptyline (ELAVIL) 25 MG tablet Take 25 mg by mouth. Active aspirin 81 mg chewable tablet Take 81 mg by mouth daily. Active atorvastatin (LIPITOR) 10 MG tablet TAKE ONE TABLET EVERY NIGHT AT BEDTIME Active oicsodfojmto-Kg-e travis-minerals Tab TAKE ONE TABLET BY MOUTH AT NOON 3 Active GLUCOSE BLOOD test strip TEST BLOOD SUGAR TWICE DAILY 3 Active vit Q-C-oasqij-zinc-l utein 226-90-0.8-5 mg Cap Take 5 mg by mouth. 2 Active esomeprazole (NEXIUM) 20 MG capsule Take 20 mg by mouth daily before breakfast. Active hydrOXYzine (ATARAX) 25 MG tablet Take 25 mg by mouth nightly at bedtime. Active MAGNESIUM OXIDE ORAL Take 400 mg by mouth nightly at bedtime. Active montelukast (SINGULAIR) 10 mg tablet Take 10 mg by mouth nightly at bedtime. Active therapeutic multivitamin tablet Take 1 tablet by mouth daily. Active verapamiL (VERELAN) 120 MG 24 hr capsule Take 120 mg by mouth nightly at bedtime. Active riboflavin, vitamin B2, (,VITAMIN B-2,) 100 mg Tab Take 100 mg by mouth 2 (two) times a day. Active ondansetron (ZOFRAN) 4 MG tablet Take 4 mg by mouth every 8 (eight) hours as needed. 4 Active PREMARIN vaginal cream Place 1 g vaginally daily. Active AIMOVIG AUTOINJECTOR 140 mg/mL subcutaneous injection Inject 140 mg under the skin every 28 days. Active clonazePAM (KLONOPIN) 2 MG tablet Take 2 mg by mouth nightly at bedtime as needed for anxiety. Active atomoxetine (STRATTERA) 25 MG capsule Take 25 mg by mouth 2 (two) times a day. Active haloperidoL (HALDOL) 5 MG tablet Take 5-10 mg by mouth 2 (two) times a day. Take 5 mg in the morning, 10 mg at night Active sertraline (ZOLOFT) 100 MG tablet Take 1.5 tablets (150 mg total) by mouth daily. 135 tablet 3 Active buPROPion (WELLBUTRIN XL) 300 MG ER 24 hr tablet Take 1 tablet (300 mg total) by mouth every morning. 90 tablet 3 5 Active Active Problems Problem Noted Date Diagnosed Date Myalgia of pelvic floor 02/25/2025 Bilateral tinnitus 10/15/2024 Fatigue 10/15/2024 Chronic back pain 10/15/2024 Headache 10/15/2024 Nocturia 10/15/2024 Seizure 10/15/2024 Sickle cell trait 10/15/2024 Unsteady gait when walking 10/15/2024 Dermal mycosis 10/15/2024 Hip pain 10/09/2024 Lumbar radiculopathy 09/23/2024 Class 1 obesity due to exces s calories with serious comorbidity and body mass index (BMI) of 33.0 to 33.9 in adult 06/07/2024 Attention and concentration deficit 10/02/2023 Apical lung scarring 09/18/2023 Meningioma 09/18/2023 Psychogenic nonepileptic seizure 09/18/2023 Seizure-like activity 08/24/2023 Anemia 10/07/2022 Asthma 10/07/2022 Class 1 obesity 10/07/2022 Depression with anxiety 10/07/2022 Fibromyalgia 10/07/2022 Galactorrhea 10/07/2022 Hyperparathyroidism 10/07/2022 Hypertension 10/07/2022 Hypocalcemia 10/07/2022 Hypothyroidism 10/07/2022 Vitamin D deficiency 10/07/2022 Depressive disorder 10/07/2022 Parathyroid adenoma 09/25/2022 Pituitary neoplasm 09/25/2022 Severe recurrent major depression with psychotic features 07/27/2022 Arthritis of left knee 01/14/2021 Arthritis of lumbar spine 01/14/2021 Abnormal auditory perception 07/03/2020 Overview (10/15/2024): Other abnormal auditory perceptions, bilateral; Note: Date Diagnosed: 07/03/2020 10:38 AM (H93.293) Dizziness and giddiness 07/03/2020 Overview (10/15/2024): Dizziness and giddiness; Note: Date Diagnosed: 07/03/2020 10:38 AM (R42) Dysphonia 06/03/2020 Overview (10/15/2024): Hoarseness; Note: Date Diagnosed: 06/03/2020 9:46 AM (R49.0) Severely overweight 12/03/2019 Intestinal malabsorption following gastrectomy 0 09/03/2019 Migraine with aura 03/12/2019 Spondylosis of lumbar region without myelopathy or radiculopathy 01/24/2018 Pituitary microadenoma 10/26/2017 Prolactinoma 03/21/2016 Fibromyositis 10/31/2013 Joint pain 10/31/2013 Plantar fasciitis 10/31/2013 Type 2 diabetes mellitus without complication Overview (10/15/2024): Lab Results Component Value Date HGBA1C 5.1 08/07/2023 Encounters Date Type Department Care Team Description 05/21/2025 9:30 AM EDT Telemedicine [facility] Department of Neurology [address] [facility], 8th [address], [address] [place] [address] Sunitha Cisneors MD Moderate episode of recurrent major depressive disorder (Primary Dx); [place] (generalized anxiety disorder); PTSD (post-traumatic stress disorder); Functional neurological symptom disorder with mixed symptoms; Functional neurological symptom disorder with attacks or seizures 03/26/2025 Documentation [facility] Department of Neurology [address] [facility], [address], [address] [place] [address] Sunitha Cisneros MD 03/14/2025 Telephone [facility] [address] [place] [address] [place] [address] Joanne Milton, PT 03/07/2025 [facility] [address] [place] [address] [place] [address] Joanne Milton, PT 03/05/2025 [facility] [address] [place] [address] [place] [address] Joanne Milton, PT from Last 3 Months Social History Tobacco Use Types Packs/Day Years Used Date Smoking Tobacco: Former Cigarettes Smokeless Tobacco: Never Tobacco Cessation:Counseling Given: Not Answered Education Answer Date Recorded Are you interested [...] Orientation Straight 03/06/2024 8: 03 AM EDT Last Filed Vital Signs Vital Sign Reading Time Taken Comments Blood Pressure 111/77 06/19/2024 10:05 AM EDT Pulse 61 06/19/2024 10:05 AM EDT Temperature 36.4 C (97.6 F) 06/19/2024 10:05 AM EDT Respiratory Rate 18 08/28/2023 7:29 AM EST Oxygen Saturation 100% 06/19/2024 10:05 AM EDT Inhaled Oxygen Concentration - - Weight 82.6 kg (182 lb) 06/19/2024 10:05 AM EDT Height 161.4 cm (5' 3.54 ) 06/19/2024 10:05 AM E DT Body Mass Index 31.69 06/19/2024 10:05 AM EDT Plan of Treatment Upcoming Encounters Date Type Department Care Team (Late st Contact Info) Description 06/27/2025 9:30 AM EST Telemedicine [facility] Department of Neurology [address] [place] [address], 8[address], [address] [place] [address] Sunitha Cisneros MD [address] [place] [phone] [email or web address] 07/14/2025 1:30 PM EST Office Visit [facility] [address] [place] [address] Sunitha Cisneros MD [address] [place] [phone] [email or web address] Joanne Milton, PT [address] [place] [address] 07/22/2025 10:45 AM EST Office Visit [facility] [address] [place] [address] Sunitha Cisneros MD [address] [place] [phone] [email or web address] Joanne Milton, PT [address] [place] [address] [email or web address] 07/30/2025 11:00 AM EST Office Visit [facility] [address] [place] [address] Sunitha Cisneros MD [address] [place] [phone] [email or web address] Joanne Milton, PT [address] [place] [address] [email or web address] 08/06/2025 11:00 AM EST Office Visit [facility] [address] [place] [address] Sunitha Cisneros MD [address] [place] [phone] [email or web address] Joanne Milton, PT [address] [place] [address] [email or web address] 08/12/2025 11:30 AM EST Office Visit [facility] [address] [place] [address] Sunitha Cisneros MD [address] [place] [phone] [email or web address] Joanne Milton, PT [address] [place] [address] 08/18/2025 10:15 AM EST Office Visit [facility] [address] [place] [address] Sunitha Cisneros MD [address] [place] [phone] [email or web address] Joanne Milton, PT [address] [place] [address] 08/25/2025 11:00 AM EST Office Visit [facility] [address] [place] [address] Sunitha Cisneros MD [address] [place] [phone] [email or web address] Joanne Milton, PT [address] [place] [address] 09/02/2025 11:30 AM EST Office Visit [facility] [address] [place] [address] Sunitha Cisneros MD [address] [place] [phone] [email or web address] Joanne Milton, PT [address] [place] [address] [email or web address] Health Maintenance Due Date Last Done Comments SMOKING Hx and SMOKELESS TOBACCO SCREENING 1982 HEPATITIS C SCREENING 12/10/1987 HIV ONE-TIME SCREENING (18-65 YEARS) 12/10/1987 MAMMOGRAM 2009 COLOGUARD 2014 COLONOSCOPY 2014 COLORECTAL CANCER SCREENING 2014 FIT TEST 2014 FOBT 2014 SIGMOIDOSCOPY 2014 VIRTUAL COLONOSCOPY 2014 PNEUMOCOCCAL VACCINES (50+ years) (2 of 2 - PCV) 04/16/2019 04/16/2018, 02/05/2018, 03/12/2013, Additional history exists RSV VACCINE (1 - Risk 50-74 years 1-dose series) 12/10/2019 HEMOGLOBIN A1C 03/26/2024 09/26/2023, 07/21, 02/07/2023, Additional history exists DIABETIC EYE EXAM 10/15/2024 URINE MICROALBUMIN/CREATININE RATIO 10/15/2024 REPEAT PHQ 10/17/2024 09/16/2024, 09/16/2024 BLOOD PRESSURE 12/18/2024 06/19/2024 INFLUENZA VACCINE (#1) 2025 , 05/11/2022, 07/02/2021, Additional history exists COVID-19 VACCINE (2024- season) 2025 11/12/2021, 01/01/2021, 12/11/2020 DEPRESSION SCREENING 09/16/2025 09/16/2024, 09/16/19 PAP SMEAR 12/11/2026 12/12/2023, 04/09/2018 Adult Td,Tdap Booster 04/16/2028 04/16/2018, 013 ZOSTER VACCINES Completed 09/10/2020, 07/09/2020 HEPATITIS A VACCINES Aged Out No long er eligible based on patient's age to complete this topic HIB VACCINES Aged Out No longer eligi ble based on patient's age to complete this topic MENINGOCOCCAL VACCINES (ACWY) Aged Out No longer eligible based on patient's age to complete this topic MENINGOCOCCAL VACCINES (B) Aged Out N o longer eligible based on patient's age to complete this topic Medical Devices Not on file Insurance [facility] C3 ACO Advance Directives For more information, please contact: [phone] (9AM - 5PM [place], Monday-Monday) * Full Code (Latest Code Status on File) Date Activated Date Inactivated Comments 08/25/2023 2:13 PM Question Answer Comments Code Status Confirmed With: Patient Care Teams Ratchet Setter Relationship Specialty Start Date End Date Gabbie Cisneros MD [address] [place] [phone] PCP - General Family Medicine 04/14/23 Additional Source Comments The information contained in this document represents components of the legal health record. It is not the complete legal health record.[facility]
--- OUTSIDE RECORDS SUMMARY | 2025-06-03 12:47 | XMS_ITS | Clinical Summary ---
Author Organization [employer] Address [address] [facility] 7[address] [place] [address] Care Team Providers Care Geophysical Laboratory Director Name Role Phone Zac Hugo CNP Primary Care Provider [phone] Ariel Jose RN Unavailable [phone] Amada Walters Unavailable Allergies Active Allergy Reactions Criticality Noted Date [...] organization. beta carotene (vitamin A) 3 MG (49380 UT) capsule Take 1 capsule by mouth at bed time. Active montelukast [...] MINUTES if still low 08/17/20 22 Active pyridoxine (Vitamin B-6) 50 MG tablet TAKE 1 TABLET BY MOUTH TWICE DAILY FOR 30 DAYS 08/25/19 23 Active Advair HFA 230-21 MCG/ACT inhaler Inhale 2 puffs 2 times daily. . 09/26/19 23 Active meclizine (Antivert) 25 MG tabletIndications :Vertigo TAKE ONE TABLET BY MOUTH DAILY NEEDED 30 tablet 05/10/20 23 Active azelastine (Astelin) 0.1 % nasal spray Administer 2 sprays into each nostril Once daily as needed for allergies. 04/02/20 23 Active cholecalciferol (Vitamin D-3) 1.25 MG (45350 UT) capsule Take 1 capsule by mouth [...] week. 30 g 3 12/13/19 24 Active indomethacin (Indocin) 50 MG capsuleIndication s:Erythema nodosum TAKE 1 CAPSULE BY MOUTH WITH BREAKFAST AND EVENING MEAL 60 capsule 06/06/20 24 Active ibuprofen 800 MG tablet TAKE 1 TABLET BY MOUTH NEEDED FOR MILD PAIN IN THE MORNING, NOON AND AT BEDTIME 30 tablet 07/23/20 24 Active Calcium + Vitamin D3 600-10 MG-MCG tabletIndications :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) TAKE ONE TABLET TWICE DAILY AT NOON AND IN THE EVENING 60 tablet 09/10/19 25 Active Ferrous Sulfate (iron) 325 (65 Fe) MG tabletIndications :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) ([facility]) TAKE ONE TABLET DAILY AT NOON 30 tablet 09/10/19 25 Active Multiple Vitamin (Multivitamin) tabletIndications :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) ([facility]) TAKE ONE TABLET DAILY AT NOON 30 tablet 09/10/19 25 Active atorvastatin (Lipitor) 10 MG tabletIndications :Hypercholesterol emia TAKE ONE TABLET EVERY NIGHT AT BEDTIME 30 tablet 10/18/19 25 Active minoxidil (Loniten) 2.5 MG tabletIndications :Androgenetic alopecia TAKE ONE TABLET EVERY MORNING 30 tablet 10/18/19 25 Active albuterol (2.5 MG/3ML) 0.083% nebulizer solutionIndicatio ns:Unspecified asthma with (acute) exacerbation INHALE ONE AMPULE USING A NEBULIZER EVERY SIX HOURS 90 mL 10/24/19 25 Active hydrOXYzine HCl (Atarax) 25 MG tabletIndications :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) ([facility]) TAKE ONE TABLET EVERY NIGHT AT BEDTIME 90 tablet 1 11/20/19 25 Active esomeprazole (NexIUM) [address] capsule TAKE ONE CAPSULE EVERY MORNING ONE HOUR BEFORE BREAKFAST. DO NOT BREAK, CRUSH, DISSOLVE OR CHEW 90 capsule 01/18/20 25 Active Easy Touch Lancets 33G/Twist miscIndications:P rolactinoma (CMS/HCC) ([facility]) TEST BLOOD SUGAR TWICE DAILY 100 each 01/22/20 25 Active FREESTYLE LITE test stripIndications: Type 2 diabetes mellitus without complication, without long-term current use of insulin ([facility]) TEST BLOOD SUGAR TWICE DAILY 50 strip 01/22/20 25 Active verapamil SR (Calan SR) 120 MG ER tablet Take 1 tablet (120 mg) by mouth at bedtime. 90 tablet 3 02/14/20 25 Active riboflavin (vitamin B2) 100 mg tablet tablet Take 2 tablets (200 mg) by mouth 2 times daily. 180 tablet 2 02/14/20 25 Active magnesium oxide (Mag-Ox) 400 (240 Mg) MG tablet Take 1 tablet (400 mg) by mouth at bedtime. 90 tablet 2 02/14/20 25 Active finasteride (Proscar) 5 MG tabletIndications :Androgenetic alopecia TAKE ONE TABLET DAILY 30 tablet 11 03/06/20 25 Active atomoxetine (Strattera) 25 MG capsule Take 1 capsule (25 mg) by mouth 2 times daily. 180 capsule 3 03/03/20 25 Active buPROPion XL (Wellbutrin XL) 150 MG 24 hr tablet Take 1 tablet (150 mg) by mouth Once per day. Do not crush, chew, or split. 90 tablet 3 03/03/20 25 Active haloperidol (Haldol) 5 MG tablet TAKE ONE TABLET EVERY MORNING and TAKE TWO TABLETS EVERY DAY AT BEDTIME 270 tablet 3 03/03/20 25 Active acetaminophen (Tylenol 8 Hour) 650 MG ER tablet TAKE ONE TABLET BY MOUTH EVERY 8 HOURS NEEDED 90 tablet 3 03/10/20 25 Active ketoconazole (NIZOral) 2 % shampoo APPLY TO THE AFFECTED AREA(s) EVERY DAY, LATHER, LEAVE ON FOR 5 MINUTES, THEN RINSE OFF WITH WATER 120 mL 4 04/02/20 25 Active cholecalciferol VITAMIN D (Vitamin D-3) 50 MCG (1999) capsule TAKE THREE CAPSULES DAILY AT NOON 270 capsule 2 04/11/20 25 Active fluocinolone (Canjilon-Smoothe) 0.01 % external oilIndications:Be nign neoplasm of pituitary gland (CMS/HCC) ([facility]) APPLY TO THE AFFECTED AREA(S) THREE TIMES DAILY 118.28 mL 04/11/20 25 Active triamcinolone (Kenalog) 0.1 % creamIndications: Eczema, unspecified type APPLY A THIN LAYER TO THE AFFECTED AREA(s) ONCE DAILY 80 g 04/11/20 25 Active sertraline (Zoloft) 100 MG tabletIndications :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) ([facility]) TAKE 1 TABLET BY MOUTH EVERY MORNING 90 tablet 04/11/20 25 Active cetirizine (ZyrTEC) 10 MG tablet TAKE 1 TABLET BY MOUTH EVERY DAY 90 tablet 1 04/29/20 25 Active ondansetron ODT (Zofran-ODT) 4 MG disintegrating tabletIndications :Chronic obstructive pulmonary disease, unspecified COPD type (CMS/HCC) ([facility]) DISSOLVE ONE TABLET UNDER THE TONGUE EVERY 8 HOURS NEEDED 30 tablet 3 05/20/20 25 Active ondansetron ODT (Zofran-ODT) 4 MG disintegrating tabletIndications :Chronic obstructive pulmonary disease, unspecified COPD type (CMS/HCC) (HCC) DISSOLVE ONE TABLET ON TONGUE EVERY 8 HOURS NEEDED 30 tablet 3 01/22/20 25 2024 Discontinued Active Problems Problem Noted Date Diagnosed Date Attention and concentration deficit 10/02/2023 Assessment & Plan (01/30/2024 11:02 AM EDT): Continue Strattera 25 mg BID. Assessment & Plan (10/30/2023 10:18 AM EDT): Difficulty concentrating, inability to read books or the bible or attend sikhism is very distressing to her. Reports lifetime [...] read books or the bible or attend sikhism is very distressing to her. Reports lifetime [...] scarring will be referred to Pulmonology. Meningioma ([facility]) 09/18/2023 Assessment & Plan (09/18/2023 1:30 PM EST): Patient with Hx of meningioma will be sent for imaging for further evaluation. -Chest CT Vitamin D deficiency 10/07/2022 Hypothyroidism 10/07/2022 Hypocalcemia 10/07/2022 Hypertension 10/07/2022 Galactorrhea 10/07/2022 Fibromyalgia 10/07/2022 Hyperparathyroidism 10/07/2022 Depression with anxiety 10/07/2022 Asthma 10/07/2022 Anemia 10/07/2022 Pituitary neoplasm 09/25/2022 Parathyroid adenoma 09/25/2022 Severe recurrent major depre ssion with psychotic features ([facility]) 07/27/2022 Assessment & Plan (01/30/2024 11:06 AM EDT): Plus OCD with irritability when things re dirty or out of place. Although she has an extensive trauma history since childhood, does not appear to have flashbacks or hypervigilance associated with PTSD. Recently diagnosed with Psychogenic Seizures and will be under care of Psychiatrist in [place]. Mood is depressed, and pt requests resumption [...] She will F/U with new providers in [place]. For any issues or concerns, contact [facility]. 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 Mood is a little better, hallucinations controlled. No longer with passibe SI. Had increased anxiety with Sertraline 150 mg, improved again with decrease to Sertraline 100 mg daily. Continue Haloperidol 2 mg in am and 4 mg at bedtime. Encouraged to go personally as planned to [facility] agency as a walk-in for counseling. [...] and plans inpatient Neurological observation and optimization. Anhedonia persists, although hallucinations better controlled. Intrusive [...] and has not had recurrence of seizures. Sleeping OK. Mild visual hallucinations. Mood has [...] about it and discuss again with Dr. Verudzco. F/U with therapist as planned, urged not [...] Do Follow up for counseling, go to [facility] and/or call for appointment. 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) 09/25/2022 10/04/2022 Influenza-like symptoms 07/26/2022 01/0 10/2022 Acute pain of left knee 07/26/2022 062 Encounters Date Type Department Care Team Description 05/29/2025 Travel 05/28/2025 Patient Outreach [facility] [address] [place] [phone] Zac Hugo CNP Pre-visit Planning (SDOH screening completed on 09/26/24 ) 05/19/2025 Refill [facility] [address] [place] [address] Gabbie Cisneros MD Chronic obstructive pulmonary disease, unspecified COPD type ([facility]) 05/06/2025 Patient Outreach [facility] [address] [place] [phone] Zac Hugo CNP Care Coordination (CM/CHW outreach) 04/29/2025 Patient Outreach [facility] [address] [place] [phone] Zac Hugo CNP Care Coordination (CM/CHW outreach) 04/28/2025 Refill [facility] [address] [place] [address] Gabbie Cisneros MD 04/28/2025 Patient Outreach [facility] [address] [place] [phone] Zac Hugo CNP 04/25/2025 Patient Outreach [facility] [address] [place] [phone] Zac Hugo CNP 04/22/2025 Patient Outreach [facility] [address] [place] [phone] Zac Hugo CNP 04/15/2025 Orders Only [facility] [address] [place] [address] Zac Hugo CNP Polypharmacy (Primary Dx) 04/14/2025 Patient Outreach [facility] [address] [place] [phone] Zac Hugo CNP Care Coordination 04/14/2025 Patient Outreach [address] [address] Zac Hugo CNP Care Coordination (CHW Chart Review) 04/14/2025 Patient Outreach [address] [phone] Zac Hugo CNP Care Management (C3CM- chart review) 04/14/2025 Patient Outreach [address] [address] Zac Hugo CNP 04/11/2025 Telephone [facility] [address] [place] [address] Ann Marie Garvey, AlliD 04/11/2025 Refill [facility] [address] [place] [address] Zac Hugo CNP 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) 04/11/2025 Refill [facility] [address] [place] [address] Gabbie Cisneros MD Benign neoplasm of pituitary gland (CMS/HCC); Eczema, unspecified type 04/01/2025 Refill [facility] [address] [place] [address] Gabbie Cisneros MD 03/22/2025 Refill [facility] [address] [place] [address] Gabbie Cisneros MD Unspecified asthma with (acute) exacerbation 03/14/2025 Telephone [facility] [address] [place] [address] Gabbie Cisneros MD No Show 03/10/2025 Orders Only [facility] [address] [place] [address] ProviderMarina MD 03/10/2025 Refill [facility] [address] [facility] [place], [place] [phone] Gabbie Cisneros MD 03/07/2025 Patient Outreach [facility] [address] [place] [address] aGbbie Cisneros MD Pre-visit Planning (SDOH screening completed on 09/26/24) 03/03/2025 Refill [facility] [address] [facility] [place] [phone] Gabbie Cisneros MD from Last 3 Months Immunizations Immunization Administration Dates Next Due Hep B, adult [...] 68 11/28/2024 8:56 AM EDT Temperature 36.6 C (97.9 F) 11/28/2024 8:56 AM EDT Respiratory Rate 20 11/28/2024 8:56 AM EDT [...] 06/04/2025 9:30 AM EDT Office Visit [facility] [address] [place] [address] Gabbie Cisneros MD [address] [place] [address] 06/09/2025 11:00 AM EDT Medication Management [facility] [address] [place] [address] Ann Marie Garvey, AlliD [address] [place] [address] 06/10/2025 10:20 AM EDT Office Visit [facility] OPTOMETRY [address] [place] [address] Health Maintenance Due Date Last Done Comments CT Colonography 1969 Colonoscopy 1969 Colorectal Cancer Screening 1969 FIT DNA/Cologuard 1969 FIT 1969 FOBT 1970 HIV Screening 1970 Sigmoidoscopy 1969 Disability Screening 1969 Diabetes: Foot Exam 12/10/1979 Eye Exam 12/10/1979 Alcohol/Substance Use Screening 1981 Hepatitis C Screening 12/10/1987 Diabetes: Urine Protein Screening 1988 Pneumococcal Vaccine: 50+ Years (2 of 2 - PCV) 04/16/2019 04/16/2018, 02/05/2018, 03/12/2013, Additional history exists Diabetes: Hemoglobin A1C 03/26/2024 024, 08/07/2023, 02/07/2023, Additional history exists Depression Monitoring 07/31/2024 01/30/2024, 024 Lipid Panel 08/07/2024 08/07/2023, 0411/2021, 05/12/2021, Additional history exists COVID-19 Vaccine ( season) 2025 11/12/2021, 11/12/2021, 01/01/2021, Additional history exists Influenza Vaccine (#1) 2025 3, 05/11/2022, 07/02/2021, Additional history exists SDOH Screening 09/26/2025 09/26/2024 Tobacco Screening 11/28/2025 [...] Comments CT HEAD WO CONTRAST Routine 03/10/2025 2 :10 PM EDT CTA HEAD NECK W AND WO CONTRAST Routine 03/10/2025 2:08 PM EDT HM MAMMOGRAPHY Routine 07/05/2024 9:46 AM EST HPV MRNA E6/E7 REFLEX TO HPV 16, 18/45 Routine 12/12/2023 10:19 AM EDT PAP SMEAR Routine 12/12/2023 10:19 AM EDT Cervical cancer screening HEMOGLOBIN A1C Routine 08/07/2023 10:53 AM EST Type 2 diabetes mellitus without complication, without long-term current use of insulin ([facility]) LIPID PANEL, STANDARD Routine 08/07/2023 10:53 AM EST Type 2 diabetes mellitus without complication, without long-term current use of insulin (CMS/[facility]) from Last 3 Months or Most Recently Relevant to Health Maintenance Results * CT Head w/o Contrast (03/10/2025 2:10 PM EDT) Anatomical Region Laterality Modality Head, Neck Computed Tomogra phy Historical Provider IM CT PROCEDURES Final R esult * CTA Head Neck w/ and w/o Contrast (03/10/2025 2:08 PM EDT) Anatomical Region Laterality Modality Head, Neck Computed Tomogra phy Historical Provider IM CT PROCEDURES Final R esult * Hm Mammography (07/05/2024 9:46 AM EST) Anatomical Region Laterality Modality Other Historical Provider HEALTH MAINTENANCE Final Result * HPV mRNA E6/E7 w/Reflex to HPV Genotypes 16, 18/45 (12/12/2023 10:19 AM EDT) HPV nRNA E6/E7 Not Detected Not Detected [facility] Comment:Methodology: Transcr iption-Mediated AmplificationThis assay detects E6/E7 viral messenger RNA (mRNA) from 14high-risk HPV types (16,18,31,33,35,39,45,51,52,56,58,59,66,68).Cervical sources are required for HPV testing.If a vaginal source from a patient who has had atotal hysterectomy with removal of cervix wassubmitted, please contact the testing laboratoryfor alternative testing options.For additional information, please refer [email or web address]/faq/TNW796n5(This link if provided for information/educational purposes only.)THIS TEST WAS PERFORMED AT:[employer] [place] [phone] SHEPPARD MD HPV mRNA E6/E7 [facility] HPV 16 RNA [facility] HPV 18/45 RNA [facility] 12/12/2023 10:1 9 AM EDT 12/13/2023 1:00 PM EDT Ti Castillo CNM LAB CYTOLOGY ORDERABLES F inal Result [facility] [address] [place] [phone] * Pap Smear (12/12/2023 10:19 AM EDT) Swab Cervix uteri structure / Unknown 12/12/2023 10:19 AM EDT 12/13/2023 1:00 PM EDT Narrative [facility] - 01/01/2024 11:53 AM EDT ----- ------- Name: Radha Fernandez Age/Sex: 53/F : 1970 Unit#: [id number] Attend Dr: TI CASTILLO CNM Re12/15/23 Status: DEP REF Location: HO.LNP Disch: ----- ------- SPEC : [id number] RECD: 12/13/23 STATUS: YARELI TARIQ NUM: [id number] STEPH: 12/12/23-1019 [facility] DR: TI CASTILLO [facility] ENTERED: 12/13/231863 SP TYPE: Pap Smr OTHR DR: ORDERED: Pap Smear Interpretation Satisfactory for evaluation. No endocervical cells seen. Fungal organisms consistent with Nelly species. Negative for intraepithelial lesion or malignancy. HPV mRNA E6/E7: NOT DETECTED This assay detects E6/E7 viral messenger RNA (mRNA) from 14 high-risk HPV types (16, 18, 31, 33, 35, 39, 45, 51, 52, 56, 58, 59, 66, 68) HPV testing performed by [facility], [place], [place]. See reference laboratory portion of the EMR for entire report. Clinical Information LMP: Postmenopausal Previous PAP test: 2018, Unknown findings Material Received ThinPrep-Cervical ----- ------- Signed (signature on file) REGINA Mcnamara (ASC) 01/01/24 1153 ----- ------- END OF REPORT Ti Castillo CNM LAB CYTOLOGY ORDERABLES F inal Result Performing Organization Address [facility] Co de Phone Number [facility] [address] [place] [address] [phone] * Hemoglobin A1c (08/07/2023 10:53 AM EST) Hemoglobin A1c 5.1 <6.0 % [facility] Comment:Hemoglobin A1C Refer ence Range Adults: 4.8 - 6.0 % Non diabetic: < 6.0 % Goal: < 7.0 %Additional Action Suggested: > 8.0 %Note: Hemoglobin A1c results are invalid for patients with abnormal amounts of HbF. Blood transfusions may impact the HbA1c concentration in the patient sample. Estimated Average Glucose 100 mg/dL [facility] Comment:eAG = Estimated ave rage glucose which is %A1C expressed asaverage glucose, using the formula of the M4Q-EnijofbIxwqoep Glucose study (ADAG), Diabetes Care, Vol.31,#8,Mar. 2007 Blood Venous blood specimen / Unknown 08/07/2023 10:53 AM EST 08/07/2023 2:05 PM EST us Gabbie Cisneros MD LAB BLOOD ORDERABLES Final Resul t Performing Organization Address [facility] Co de Phone Number [facility] [address] [place] [phone] * Lipid Panel, Standard (08/07/2023 10:53 AM EST) Triglycerides 75 <150 mg/dL [facility] Comment:Desirable Triglyceri de: less than 150 mg/dLBorderline High Triglyceride 150-199 mg/dLHigh Triglyceride: 200-499 mg/dLVery High Triglyceride: greater than or equal to 5OO mg/dL Cholesterol 174 <200 mg/dL [facility] Comment:Desirable Cholestero l: less than 200 mg/dLBorderline High Cholesterol: 200-239 mg/dLHigh Cholesterol: greater than 239 mg/dL LDL Cholesterol Calculated 98 <100 mg/dL [facility] Comment:Desirable LDL: less than 100 mg/dLNear Optimal/Above Optimal LDL: 110- 129 mg/dLBorderline High LDL: 130-159 mg/dLHigh LDL: 160-189 mg/dLVery High LDL: greater than or equal to 190 mg/dL HDL Cholesterol 61 >40 mg/dL [facility] Comment:Desirable HDL: great er than 40 mg/dL Note: This HDL assay may give artificially low results in patients with liver disease. Blood Venous blood specimen / Unknown 08/07/2023 10:53 AM EST 08/07/2023 2:05 PM EST us Gabbie Cisneros MD LAB BLOOD ORDERABLES Final Resul t [facility] [address] [place] [address] [phone] from Last 3 Months or Most Recently Relevant to Health Maintenance Insurance [address] [place], [place] [address] Care Teams Geophysical Laboratory Director Relationship Specialty Start Date End Date Bethel GarettMISHA prescott PCP - General Family Medicine 03/28/25 Ariel Jose, ZULEYKA [address] [place] [phone] Registered Nurse Family Medicine 04/14/25 Amada Walters 04/14/25 Saloni Kaminski Roller TurnerMarketing Producer 05/19/23 Rosemarie Palmer [address] [place] [address] Nurse Practitioner Neurology 09/18/23 Milad Mcfarland Roller TurnerMarketing Producer 10/01/24
--- OUTSIDE RECORDS SUMMARY | 2025-06-03 12:47 | XMS_ITS | Encounter Summary ---
Author Organization [employer] Address [address] [place] [address] Care Team Providers Care Land Surveying Party Chief Name Role Phone Zac Hugo CNP Primary Care Provider [phone] Ariel Jose RN Unavailable [phone] Amada Walters Unavailable Encounter Details Date Type Department Care Team (Latest Contact Info) Description 05/29/2025 Travel Social History Tobacco Use Types Packs/Day [...] t he electric, gas, oil or water [employer] threatened to shut off services in your [...] [facility] [address] [place] [address] Gabbie Cisneros MD [address] [place] [address] 06/09/2025 11:00 AM EDT Medication Management [facility] [address] [place] [address] Ann Marie Garvey PharmD [address] [place], [place] [phone] 06/10/2025 10:20 AM EDT Office Visit [facility] OPT[facility] [address] [place] [address] documented as of this encounter Goals Goal [...] documented as of this encounter Care Teams Land Surveying Party Chief Relationship Specialty Start Date End Date Zac Hugo CNP PCP - General Family Medicine 03/28/25 Ariel Jose, RN [address] [place] [phone] Registered Nurse Family Medicine 04/14/25 Amada Walters 04/14/25 Saloni Kaminski DioramistDirector Of Catering 05/19/23 Rosemarie Palmer [address] [place] [address] Nurse Practitioner Neurology 09/18/23 Milad Mcfarland DioramistDirector Of Catering 10/01/24 documented as of this encounter
--- OUTSIDE RECORDS SUMMARY | 2025-06-03 12:47 | XMS_ITS | Encounter Summary ---
Author Organization [employer] Address [address] [facility] 7t [place] [address] Care Team Providers Care Wildlife Protector Name Role Phone Gabbie Cisneros MD Primary Care Provider [phone] Zac Hugo CNP Primary Care Provider [phone] Ariel Jose RN Unavailable [phone] Amada Walters Unavailable Reason for Visit * Reason Comments Med Refill Encounter Details Date Type Department Care Team (Late st Contact Info) Description 04/08/2024 Refill [facility] CHC MED & PEDS [address], [place] [phone] Gabbie Cisneros MD [address], [place] [phone] Social History Tobacco Use Types Packs/Day Years [...] Description 06/04/2025 9:30 AM EDT Office Visit [facility] MED & PEDS [address] [place] [address] Gabbie Cisneros MD [address] [place] [address] 06/09/2025 11:00 AM EDT Medication Management [facility] MED & PEDS [address] [place] [address] Ann Marie Garvey, PharmD [address] [place] [address] 06/10/2025 10:20 AM EDT Office Visit [facility] OPTOMETRY [address] [place] [address] documented as of this encounter Goals Goal [...] documented as of this encounter Care Teams Wildlife Protector Relationship Specialty Start Date End Date Gabbie Cisneros MD [address] [place] [address] PCP - General Family Medicine 05/02/18 03/27/25 Zac Hugo CNP [address] [place] [address] PCP - General Family Medicine 03/28/25 Ariel Jose RN [address] [place] [address] Registered Nurse Family Medicine 04/14/25 Amada Walters 04/14/25 Saloni Kaminski Air Brake RiggerBuffing Wheel Former Automatic 05/19/23 Rosemarie Palmer [address] [place] [address] Nurse Practitioner Neurology 09/18/23 Milad Mcfarland Air Brake RiggerBuffing Wheel Former Automatic 10/01/24 documented as of this encounter
--- OUTSIDE RECORDS SUMMARY | 2025-06-03 12:47 | XMS_ITS | Encounter Summary ---
Author Organization [employer] Address [address] [facility] [address] 7[address] [place] [address] Care Team Providers Care Maintenance Mechanic Supervisor Name Role Phone Gabbie Cisneros MD Primary Care Provider [phone] Zac Hugo CNP Primary Care Provider [phone] Ariel Jose RN Unavailable [phone] Amada Walters Unavailable Encounter Details Date Type Department Care Team (Late st Contact Info) Description 07/08/2024 Orders Only [facility] CHC MED & PEDS [address] [place], [place] [phone] Provider, MD Marina Social History Tobacco Use [...] Upcoming Encounters Date Type Department Care Team ([facility] st Contact Info) Description 06/04/2025 9:30 AM EDT Office Visit [facility] MED & PEDS [address] [place] [address] Gabbie Cisneros MD [address] [place] [address] 06/09/2025 11:00 AM EDT Medication Management [facility] MED & PEDS [address] [place] [address] Ann Marie Garvey, PharmD [address] [place] [address] 06/10/2025 10:20 AM EDT Office Visit [facility] OPTOMETRY [address] [place] [address] documented as of this encounter Goals Goal [...] AM EST Narrative 09/04/2024 11:29 AM EST [address] [address] [address] Scan Report Signed Patient: Radha Fernandez MR#: [id number] : 1970 Acct:[id number] Age/Sex: 53 / F ADM Date: 07/29/24 Loc: HO.CT Attending Dr: Betzaida Solis MD Ordering Physician: Betzaida Solis MD Date of Service: 07/29/24 Procedure(s): CT sinus wo IV con Accession Number(s): [id number] cc: Betzaida Solis MD; Gabbie Cisneros MD Report Number: [id number]: Total DLP = 99.00 mGy-cm EXAMINATION: CT [...] by: Nelson Evans DO 09/04/2024 11:26 AM [facility] [place] Dictated By: Vinod Evans DO Signed By: <Electronically signed by Vinod Evans DO in OV> 09/04/24 1126 DD/ 0758 TD/TT: 07/29/24 0802 Motorcycle Builder: MANNY Procedure Note Donotuseinterpreter, Image - 09/04/[address] [place] [address] [address] Scan Report Signed Patient: Darron Fernandez#: [id number] : 1970Acct:[id number] Age/Sex: 53 / FADM Date: 07/29/24 Loc: HO.CT Attending Dr: Betzaida Solis MD Ordering Physician: Betzaida Solis MD Date of Service: 07/29/24 Procedure(s): CT sinus wo IV con Accession Number(s): [id number] cc: Betzaida Solis MD; Gabbie Cisneros MD Report Number: [id number]: Total DLP = 99.00 mGy-cm EXAMINATION: CT [...] 09/04/24 1126 DD/ 0758 TD/TT: 07/29/24 0802 Motorcycle Builder: MANNY [facility] External Provider IMG CT PROCEDURES Final Result * Hm Mammography (07/05/2024 9:46 AM EST) Anatomical Region Laterality Modality Other Historical Provider HEALTH MAINTENANCE Final Result documented in this encounter Visit Diagnoses Not on filedocumented in this encounter Additional Health Concerns Assessment Noted Time PHQ-9 Depression Total Score: 10 024 9:42 AM EDT documented as of this encounter Care Teams Maintenance Mechanic Supervisor Relationship Specialty Start Date End Date Gabbie Cisneros MD [address] [place] [address] PCP - General Family Medicine 05/02/18 03/27/25 Zac Hugo CNP [address] [place] [address] PCP - General Family Medicine 03/28/25 Ariel Jose, ZULEYKA [address] [place] [address] Registered Nurse Family Medicine 04/14/25 Amada Walters 04/14/25 Saloni Kaminski Recreation TeacherBridge Maintenance Worker 05/19/23 Rosemarie Palmer [address] [place] [address] Nurse Practitioner Neurology 09/18/23 Mliad Mcfarland Recreation TeacherBridge Maintenance Worker 10/01/24 documented as of this encounter
== END 2025-06-03 11:13 | disposition home or self-care (01) ==
LOC: HO.HSMS 10:46
PROVIDERS: PCP Student in an Organized Health Care Education/Training Program; Visit Provider Psychiatry & Neurology Neurology
DX: G24.3 Spasmodic torticollis (principal)
CPT/HCPCS: 64616

== ENCOUNTER → 2025-06-03 10:45 | Outpatient (BNVA) | payer MEDICAID, SELFPAY | PROVIDERS: PCP Student in an Organized Health Care Education/Training Program; Visit Provider Psychiatry & Neurology Neurology | DX: G24.3 Spasmodic torticollis (principal) | CPT/HCPCS: 64616; 99211; J0585 ==

== ENCOUNTER 2025-07-31 11:07 | Outpatient (AMB) | payer MEDICAID, SELFPAY ==
[2025-07-31 11:13] VITALS: BP 92/70
--- NOTE | 2025-07-31 11:13 | MHC.OFFVIS ---
Vital Signs 07/31/25 11:13 Height 16 ft Weight 167 lb BMI 3.2 BP 92/70 Blood Pressure Location Rt brachial Position Sitting Intake Visit Reasons: Follow Up 6mo Surveillance Agent Required: No Accompanied by: Self / Same As Patient Allergies iodine Allergy (Severe, Verified 07/31/25 11:17) Anaphylaxis shellfish derived Allergy (Severe, Verified 07/31/25 11:17) Hives Seasonal Allergies Allergy (Intermediate, Verified 07/31/25 11:17) Watery Eyes Sneezing banana Allergy (Mild, Verified 07/31/25 11:17) Itchy codeine Allergy (Mild, Verified 07/31/25 11:17) Chest Pain morphine Allergy (Mild, Verified 07/31/25 11:17) Chest Pain tree nut Allergy (Mild, Verified 07/31/25 11:17) Itchy watermelon Allergy (Mild, Verified 07/31/25 11:17) Itchy Medication List - Last Reconciled 07/31/25 by NAN Garcia albuterol sulfate 2.5 mg inhalation Q4-6H PRN albuterol sulfate 90 mcg/actuation (ProAir HFA) 2 puffs inhalation QID amitriptyline 10 - 20 mg (1 - 2 x 10 mg) PO BEDTIME 30 days aripiprazole 20 mg PO BEDTIME aspirin 81 mg PO BEDTIME 30 days atorvastatin (Lipitor) 10 mg PO DAILY [Bilateral carpal tunnel wrist splints Use nightly while sleeping] calcium carbonate-vitamin D3 600 mg-10 mcg (400 unit) 1 tab PO BID celecoxib 200 mg PO BID 90 days cetirizine 10 mg PO DAILY PRN clonazepam 2 mg PO DAILY PRN 30 days clonazepam 2 mg orally for seizure lasting > 2 minutes, may repeat x's 1 and call 911; 30 days clonazepam 2 mg orally . PRN; 2 mg orally for seizure lasting > 2 minutes, may repeat x's 1 and call 911; 30 days duloxetine 30 mg PO QAM esomeprazole magnesium 20 mg PO QAM ferrous fumarate (Ferretts) 325 mg PO DAILY finasteride 5 mg PO DAILY fluocinolone 0.01% topical TID fluticasone propion-salmeterol 115-21 mcg/actuation (Advair HFA) 2 puffs inhalation ONCE fremanezumab-vfrm (Ajovy) 675 mg (4.5 mL) subcut ONCE 90 days [glucose tab PO PRN] hydroxyzine HCl 25 mg PO BEDTIME ketoconazole 2% 1 appl topical DAILY magnesium oxide 400 mg PO DAILY 90 days meclizine 25 mg PO DAILY PRN montelukast 10 mg PO BEDTIME multivitamin 1 tab PO DAILY onabotulinumtoxinA (Botox) IM ondansetron 4 mg PO Q8H PRN pantoprazole 40 mg PO pyridoxine (vitamin B6) 50 mg PO BID 30 days riboflavin (vitamin B2) 200 mg (2 x 100 mg) PO BID 90 days sertraline 50 mg PO QAM topiramate (Topamax) 50 mg PO BEDTIME 90 days triamcinolone acetonide 0.5% 1 appl topical BID triamcinolone acetonide (Nasacort) 1 spray intranasal DAILY verapamil ER 120 mg PO DAILY 30 days vitamin A 1 cap PO QAM vitamin B complex (B Complex-Vitamin B12 tablet) 1 tab PO DAILY zolmitriptan 5 mg PO Q2H PRN 30 days HPI Comments Details: 54-yr-old female presents for f/u visit of migraine, functional neurological disorder. Pt reports she has had a bad week- she is having increased dystonia and back pain symptoms. Yesterday she had a fall d/t lightheadedness. Her boyfriend checked her blood sugar- which was 55.. Endorses low appetite, especially when depressed. Pt reports she is continuing to have episodes of her left arm/hand posturing for minutes to hours, and the hand swinging out, may hit someone next to herself or smack herself. She has also noticed involuntary head shaking, lower jaw sliding which can be uncomfortable, left foot turning in. She continues to have convulsive episodes, even in her sleep, a couple of episodes per week. She is still waking up kicking, but more often swinging her arms. Her is now sleeping with his head to the foot of the bed, as she has hit him in her sleep. She talks in h sleep (yelling at a person in Greenlandic) or has a conversation, but then does not remember. She states that in [place], they told her she was having dystonia, which is often a/w FND. Pt reports she has continued to f/u w/ [facility] functional neurology, psychiatry, and cognitive therapy. Also, seeing an FND PT in [place]- at [facility]. She states that they want her to continue reading books and watching videos on FND- but this makes her upset and feels like she will not ever get better. She finds that it is hard for to fully understand the diagnosis FND. Pt reports that [facility] now feel that she may have been having functional syncopal episodes from childhood. Her grandfather had PD- dx'd in his 60s. She had lumbar cryotherapy- the left side went well, however the right side procedure caused a burning sensation which is still sensitive- and feels she has more pain now than before. She states she wakes up with a daily headache, but once she gets up and about, the headache resolves. the migraine attacks themselves are still better. The botox is helpful. May use Tylenol or Advil 1-2 times a day as needed. Migraine headache, is mostly left sided, but can be bilateral, frontal, temporal, eye stabbing and pressure pain a/w rarely seeing crystals (like a glass shattered), photophobia, phonophobia, nausea, vomiting, allodynia, left facial spasms, brain fog, activity intolerance. [facility] Medical History Greater trochanteric bursitis of both hips Osteoarthritis involving multiple joints on both sides of body Cataract Pituitary abnormality Sleep disorder GERD (gastroesophageal reflux disease) HTN (hypertension) Diabetes Depression Anemia Surgical History Hx of tonsillectomy H/O tubal ligation H/O section H/O gastric bypass H/O laparoscopic adjustable gastric banding Hx of bilateral breast reduction surgery H/O right knee surgery H/O left knee surgery Family History Father Skin cancer Brother Heart disease Brother Cancer Mother Dementia Social History Household Members Other:: daughter Alcohol intake: never Patient Tobacco Use Status: Former Tobacco user Current occupational status: disabled Physical Exam Vital Signs: Last Vital Signs BP 92/70 07/31/25 11:13 BMI result Body Mass Index 3.2 Const General: cooperative and no acute distress Resp Effort & Inspection: normal respiratory effort and able to speak in complete sentences Neuro Other: Alert and oriented x3 Statin expression today Mild left hemifacial spasm Bilateral posterior cervical tightness No visual head tremor Left arm rest and flex hand and elbow posture, however patient can extend fingers and arm independently Left foot rest in slight internal rotation, with slight exaggerated arch Stand slowly, steady gait. Assessment & Plan Assessment & Plan (1) Chronic migraine without aura, not intractable, without status migrainosus: Code(s): G43.709 - Chronic migraine without aura, not intractable, without status migrainosus Category: Medical (2) Migraine with aura, intractable, without status migrainosus: Code(s): G43.119 - Migraine with aura, intractable, without status migrainosus Category: Medical (3) Psychogenic nonepileptic seizure: Code(s): F44.5 - Conversion disorder with seizures or convulsions Category: Medical (4) Spasmodic torticollis: Code(s): G24.3 - Spasmodic torticollis Category: Medical (5) Functional neurological symptom disorder with abnormal movement: Code(s): F44.4 - Conversion disorder with motor symptom or deficit Category: Medical Plan For non-epileptic convulsions in setting of functional neurological d/o: Reviewed FND diagnosis and importance of multi-modal therapy to achieve best symptom management-while acknowledging that this work can be challenging requires prolonged effort and time commitment. Increase overall physical activity, information shared on strategies to optimize course last posture/mobility/flexibility. Trial Amantadine 100mg tab- 1/2 tab bid *8am and 2pm) Reviewed risks and benefits, including possible side effects including but not limited to: hallucinations, nightmares, insomnia Continue intensive cognitive behavioral therapy at [facility]. F/u [facility] Epilepsy and Functional Neurological Disorder clinic as scheduled. Continue to hold Tegretol XR. Will monitor status of muscle spasms and twisting,. For bilateral carpal tunnel syndrome: Bilateral carpal tunnel wrist splints qhs prn. For bilateral lower extremity paresthesias: 01/26/2024 BLE EMG/NCS- normal. Information previously shared on foot and ankle exercises- list of at home exercises with patient Follow-up with pain management as scheduled Continue to monitor ? For migraine prevention: Continue Ajovy 225mg/1.5ml autoinjector- 675mg x's (3 225mg injections) every 90 days (take in between botox injections) Continue Topiramate 50mg qhs. Continue Amitriptyline 20mg qhs- helps for sleep. Continue Riboflavin 400 mg daily in a.m. Continue Mag 400 mg daily at bedtime Continue Verapamil ER 120mg qhs. Previous migraine prevention trials: Aimovig- effective but denied by insurance. Gabapentin- causes twitching. Migraine tx contraindications- Beta-blockers d/t asthma dx. For acute migraine tx: Continue Zolmitriptan 5mg tab, 1/2 - 1 tab (2.5-5mg) at onset of headache, may repeat in 4 hours. Max of 2 tabs (10mg) per 24 hours. May adjunct with OTC Tylenol 650mg every 4 hours, Ibuprofen (liquigel) 600mg every 6 hours, or Naproxen (liquigel) 440mg every 12 hrs as needed. Previous acute migraine tx trials: Sumatriptan 100mg- ineffective. ? For spasmodic torticollis: Continue botox- Pt to follow-up in 6 months or sooner prn. Medications: New amantadine HCl at 8am and 2pm. take w/ food. 50 mg (1/2 x 100 mg) PO BID 30 tabs 3RF 30 days Refilled zolmitriptan do not exceed 2 doses per 24 hrs 5 mg PO Q2H PRN 12 tabs 6RF migraine headache 30 days fremanezumab-vfrm (Ajovy) 675 mg (4.5 mL) subcut ONCE 4.5 mL 3RF 90 days G43.119 - Migraine with aura, intractable, without status migrainosus Coding Level of Care Code Est Pt Level 4 (26056) Add On Problem Visit Only Diagnoses Chronic migraine without aura, not intractable, without status migrainosus G43.709 Migraine with aura, intractable, without status migrainosus G43.119 Psychogenic nonepileptic seizure F44.5 Spasmodic torticollis G24.3 Functional neurological symptom disorder with abnormal movement F44.4
== END 2025-07-31 12:09 | disposition home or self-care (01) ==
LOC: HO.HSMS 11:08
PROVIDERS: PCP Student in an Organized Health Care Education/Training Program; Visit Provider Nurse Practitioner Family
DX: G43.709 Chronic migraine without aura, not intractable, without status migrainosus (principal); G43.119 Migraine with aura, intractable, without status migrainosus; F44.5 Conversion disorder with seizures or convulsions; G24.3 Spasmodic torticollis; F44.4 Conversion disorder with motor symptom or deficit
CPT/HCPCS: 99214

== ENCOUNTER → 2025-07-31 11:07 | Outpatient (BNVA) | payer MEDICAID, SELFPAY | PROVIDERS: PCP Student in an Organized Health Care Education/Training Program; Visit Provider Nurse Practitioner Family | DX: G43.709 Chronic migraine without aura, not intractable, without status migrainosus (principal); G43.119 Migraine with aura, intractable, without status migrainosus; F44.5 Conversion disorder with seizures or convulsions; G56.03 Carpal tunnel syndrome, bilateral upper limbs; R20.2 Paresthesia of skin; G24.3 Spasmodic torticollis; Z79.899 Other long term (current) drug therapy | CPT/HCPCS: 99212 ==

== ENCOUNTER 2025-08-20 16:02 | Outpatient (REF) | payer MEDICAID, SELFPAY ==
--- OUTSIDE RECORDS SUMMARY | 2025-08-18 10:15 | XMS_ITS | Encounter Summary ---
Author Organization [facility] Address [address] [address] Phone Care Team Providers Care Refrigerator Mover Name Role Phone Gabbie Cisneros MD Primary Care Provider [phone] Reason for Visit * Physical Therapy (Within 1 month) - Authorized Specialty Diagnoses / Procedures Referred By Kelly t Referred To Contact Physical Therapy Sunitha Cisneros MD Phone: tel: fax: [email or web address] [address] [place] [address] Phone: tel: fax: Referral ID Status Reason Start Date Expiration Date V isits Requested Visits Authorized [id number] Authorized 07/14/2025 07/14/2026 20 20 Encounter Details Date Type Department Care Team (Late st Contact Info) Description 08/18/2025 10:15 AM EST Office Visit [facility] [address] [place] [address] Sunitha Cisneros MD [address] [place] [phone] [email or web address] Joanne [facility], PT [address] [place] [address] [email or web address] Functional neurological symptom disorder with mixed symptoms (Primary Dx) Social History Tobacco Use Types Packs/Day Years Used Date Smoking Tobacco: Former Cigarettes Smokeless Tobacco: Never Education Answer Date Recorded Are you interested [...] as of this encounter Progress Notes * Joanne [facility], PT - 08/18/2025 10:15 AM EST Physical Therapy Treatment Note Patient Name: Radha Fernandez Date of : 1970 This patient has attended 2 visits since the onset Physical Therapy. Referring MD: Sunitha Cisneros MD [address] [place] [address], [place] [id number] Functional neurological symptom disorder with mixed symptoms [F44.7] Precautions: fcnl seizures and dystonia, chronic pain Subjective comments: Was unable to log in to appt with Dr. Cisneros- had issues with the portal A lot of pain in the arms, has been stretching Blood sugar has been good Can't concentrate on anything for too long Still thrashing at night in her sleep - contributes to mm soreness When she gets up she has pain and has to walk very slow There is a gym with a pool in [place] about 3 mins from her house- might look into it Suggested joining a group aquatic exercise class for the social interaction Notes if she tries to do something she feels dizziness or anxiety Trouble with stepping up or down at a curb- body freezes-when there's a change in terrain A lot of L>R LE swelling lately but doesn't eat a lot of salt Seizures haven't been coming as frequently but still getting the dystonia Objective: amb slowly into clinic, no AD Interventions: Procedural Interventions Parameters THERAPEUTIC EXERCISE Sitting bouncing on physioball, then performed pelvic ROM - lateral, ant post, and clocks [address] Sit to stand from chair with chest pass with basketball x 5, then with balloon tap x 5 Mindful seated yoga video x 7 min-cervical, shoulder, and trunk ROM Blowing bubbles, focusing on long slow exhale Beginner salsa lesson x 4 min THERAPEUTIC ACTIVITIES NEUROMUSCULAR RE-ED MANUAL THERAPY MODALITIES Home Exercise Program: na Assessment: Soreness and fatigue at end of session, but able to complete all act's, no adverse response at end of session Plan: Suggested meditation to help with unhelpful intrusive thoughts- will help with tech / revisit next session Mindfulness to help with pain Assess response to today's visit Help with freezing at curbs Joanne Milton, [place] [id number] documented in this encounter Plan of Treatment Upcoming Encounters Date Type Department Care Team (Late st Contact Info) Description 08/25/2025 11:00 AM EST Office Visit [facility] [address] [place] [address] Sunitha Cisneros MD [address] [place] [phone] [email or web address] Joanne [facility], PT [address] [place] [address] 09/02/2025 11:30 AM EST Office Visit [facility] [address] [place] [address] Sunitha Cisneros MD [address] [place] [phone] [email or web address] Joanne [facility], PT [address] [place] [address] [email or web address] 09/11/2025 9:00 AM EST Telemedicine [facility] [address] [facility], 8th Floor, [address] [place] [address] Jean Davila MD, PhD [address] [place] [phone] [email or web address] 10/27/2025 3:30 PM EDT Telemedicine [facility] [address] [facility], 8th Floor, [address] [place] [address] Sunitha Cisneros MD [address] [place] [phone] [email or web address] documented as of this encounter Visit Diagnoses Diagnosis Functional neurological symptom disorder with mixed symptoms- Primary documented in this encounter Additional Health Concerns Assessment Noted Time PHQ-9 Depression Total Score: 16 025 11:12 AM EST PHQ-2 Depression Total Score: 4 09/16/19 25 11:12 AM EST documented as of this encounter Care Teams Refrigerator Mover Relationship Specialty Start Date End Date Gabbie Cisneros MD [address] [place] [address] PCP - General Family Medicine 04/14/23 documented as of this encounter Additional Source Comments The information contained in this document represents components of the legal health record. It is not the complete legal health record.[facility]
--- OUTSIDE RECORDS SUMMARY | 2025-08-20 14:45 | XMS_ITS | Encounter Summary ---
Author Organization [employer] Address [address] [place] [address] [facility] [place] [address] Care Team Providers Care Trimmer Machine Name Role Phone Zac Hugo CNP Primary Care Provider [phone] Ariel Jose RN Unavailable [phone] Amada Walters Unavailable Reason for Referral * Consultation (Routine) - Pending Review Specialty Diagnoses / Procedures Referred By Kelly pate Referred To Contact Urology Diagnoses Mixed incontinence Zac Hugo CNP [address] [place] [address] Phone: tel: fax: Referral ID Status Reason Start Date Expiration Date Visits Requested Visits Authorized [id number] Pending Review Specialty Services Required 5 08/20/2026 1 1 * Consultation (Routine) - Authorized Specialty Diagnoses / Procedures Referred By Kelly pate Referred To Contact Behavioral Health Diagnoses Anxiety and depression Procedures Referral to Behavioral Health Zac Hugo CNP [address] [place] [address] Phone: tel: fax: Referral ID Status Reason Start Date Expiration Date Visits Requested Visits Authorized [id number] Authorized Specialty Services Required 5 08/20/2026 1 1 * Consultation (Routine) - Pending Review Specialty Diagnoses / Procedures Referred By Kelly pate Referred To Contact Psychiatry Diagnoses Anxiety and depression Procedures Referral to Psychiatry Zac Hugo CNP [address] [place] [address] Phone: tel: fax: Referral ID Status Reason Start Date Expiration Date Visits Requested Visits Authorized [id number] Pending Review Specialty Services Required 02/18/2027 1 1 * Consultation (Routine) - Pending Review Specialty Diagnoses / Procedures Referred By Kelly pate Referred To Contact Gastroenterology Diagnoses Encounter for screening for malignant neoplasm of colon Zac Hugo CNP [address] [place] [address] Phone: tel: fax: Referral ID Status Reason Start Date Expiration Date Visits Requested Visits Authorized [id number] Pending Review Specialty Services Required 08/20/2026 1 1 * Imaging (Routine) - Authorized Specialty Diagnoses / Procedures Referred By Kelly pate Referred To Contact Radiology Diagnoses Screening mammogram for breast cancer Procedures BI Mammogram Screening Tomosynthesis Bilateral Zac Hugo CNP [address] [place] [address] Phone: tel: fax: [address] Phone: tel: fax: Referral ID Status Reason Start Date Expiration Date V isits Requested Visits Authorized [id number] Authorized 08/20/2025 08/20/2026 1 1 Reason for Visit * Reason Comments Annual Exam PE Encounter Details Date Type Department Care Team ([facility] st Contact Info) Description 08/20/2025 2:45 PM EST Office Visit [facility] MED & PEDS [address] [place] [address] Zac Hugo CNP [address] [place] [address] Type 2 diabetes mellitus without complication, without long-term current use of insulin (HCC) (Primary Dx); Primary hypertension; Hypothyroidism, unspecified type; Hyperparathyroidism (CMS/HCC); Anemia, unspecified type; Screening mammogram for breast cancer; Encounter for screening for malignant neoplasm of colon; Eczema, unspecified type; Onychomycosis; Vaginal odor; Anxiety and depression; Encounter for physical examination; Vasomotor symptoms due to menopause; Mixed incontinence; Encounter for immunization Social History Tobacco Use Types Packs/Day Years [...] t he electric, gas, oil or water [employer] threatened to shut off services in your [...] Sign Reading Time Taken Comments Blood Pressure 114/72 08/20/2025 2:45 PM EST Pulse 70 08/20/2025 2:45 PM EST Temperature 36.3 C (97.3 F) 08/20/2025 2:45 PM EST Respiratory Rate 12 08/20/2025 2:45 PM EST Oxygen Saturation 98% 08/20/2025 2:45 PM EST Inhaled Oxygen Concentration - - Weight 77.1 kg (170 lb) 08/20/2025 2:45 PM EST Height 160 cm (5' 3 ) 08/20/2025 2:45 PM EST Body Mass Index 30.11 08/20/2025 2:45 PM EST documented in this encounter Functional Status * SBIRT - Alcohol Question Answer Date of Assessment Author How many times in the past y ear have you had 5 or more (for men) or 4 or more (for women) drinks in a day? 0 08/20/2025 2:51 PM EST Bubba Willams [place] Score 0 08/20/2025 2:51 PM EST Norma Hughes MA * SBIRT - Drugs Question Answer Date of Assessment Author How many times in the past y ear have you used an illegal drug or used a prescription medication for non-medical reasons? 0 08/20/2025 2:51 PM EST Bubba Willams [place] Score 0 08/20/2025 2:51 PM EST Norma Hughes MA documented as of this encounter Miscellaneous Notes * Assessment & Plan Note - Zac Hugo CNP - 08/20/2025 2:45 PM EST Associated Problem(s): Diabetes mellitus type 2, uncomplicated (HCC) Orders: HIV-1/2 Antigen and Antibodies, Fourth Generation, with Reflexes; Future Hepatitis C Antibody with Reflex to HCV, RNA, Quantitative, Real-Time PCR; Future CBC auto differential; Future Comprehensive Metabolic Panel; Future Lipid Panel, Standard; Future TSH W/Reflex to FT4; Future POCT A1c POCT glucose manually resulted (CPT-49616) Vitamin D, 25-Hydroxy, Total, Immunoassay; Future * Assessment & Plan Note - Zac Hugo CNP - 08/20/2025 2:45 PM EST Associated Problem(s): Hypertension * Assessment & Plan Note - Zac Hugo CNP - 08/20/2025 2:45 PM EST Associated Problem(s): Hypothyroidism * Assessment & Plan Note - Zac Hugo CNP - 08/20/2025 2:45 PM EST Associated Problem(s): Hyperparathyroidism (CMS/HCC) * Assessment & Plan Note - Zac Hugo CNP - 08/20/2025 2:45 PM EST Associated Problem(s): Anemia Orders: Vitamin B12/Folate, Serum Panel; Future documented in this encounter Plan of Treatment Upcoming Encounters Date Type Department Care Team (Late st Contact Info) Description 09/26/2025 11:30 AM EST Office Visit [facility] OPTOMETRY [address] [place], [place] [phone] Cristina Collado, OD [address] [place] [address] 10/07/2025 10:30 AM EST Office Visit [facility] PEDS [address] [place], [place] [phone] Zac Hugo, VOCAL MUSIC TEACHER [address] [place], [place] [phone] Scheduled Orders Name Type Priority Associated Diagnoses Orde r Schedule HIV-1/2 Antigen and Antibodies, Fourth Generation, with Reflexes Lab Routine Type 2 diabetes mellitus without complication, without long-term current use of insulin (HCC) Expected: 08/20/2025 (Approximate), Expires: 08/20/2026 Hepatitis C Antibody with Reflex to HCV, RNA, Quantitative, Real-Time PCR Lab Routine Type 2 diabetes mellitus without complication, without long-term current use of insulin (HCC) Expected: 08/20/2025, Expires: 08/20/2026 CBC auto differential Lab Routine Type 2 diabetes mellitus without complication, without long-term current use of insulin (HCC) Expected: 08/20/2025 (Approximate), Expires: 08/20/2026 Comprehensive Metabolic Panel Lab Routine Type 2 diabetes mellitus without complication, without long-term current use of insulin (HCC) Expected: 08/20/2025 (Approximate), Expires: 08/20/2026 Lipid Panel, Standard Lab Routine Type 2 diabetes mellitus without complication, without long-term current use of insulin (HCC) Expected: 08/20/2025 (Approximate), Expires: 08/20/2026 TSH W/Reflex to FT4 Lab Routine Type 2 diabetes mellitus without complication, without long-term current use of insulin (HCC) Expected: 08/20/2025 (Approximate), Expires: 08/20/2026 BI Mammogram Screening Tomosynthesis Bilateral Imaging Routine Screening mammogram for breast cancer Expected: 08/20/2025, Expires: 10/18/2026 Vitamin B12/Folate, Serum Panel Lab Routine Anemia, unspecified type Expected: 08/20/2025, Expires: 08/20/2026 Vitamin D, 25-Hydroxy, Total, Immunoassay Lab Routine Type 2 diabetes mellitus without complication, without long-term current use of insulin (HCC) Expected: 08/20/2025 (Approximate), Expires: 08/20/2026 Bacterial Vaginosis Panel Microbiology Routine Vaginal odor Ordered: 08/20/2025 Scheduled Referrals Name Type Priority Associated Diagnoses Order Schedule Referral to Gastroenterology Outpatient Referral Routine Encounter for screening for malignant neoplasm of colon Expected: 08/20/2025 (Approximate), Expires: 08/20/2026 Referral to Urology Outpatient Referral Routine Mixed incontinence Expected: 08/20/2025 (Approximate), Expires: 08/20/2026 documented as of this encounter Goals Goal Patient Goal Type Associated Problems Recent Progress Patient-Stated? Author Patient will adhere to medication regimen General No Jerry Shelby, PharmD Help patient manage asthma General No Jerry Shelby, PharmD Note: Reduce use of LUANNE to 2x/week documented as of this encounter Procedures Procedure Name Priority Date/Time Associated Diagnosis Comments POCT GLYCATED HEMOGLOBIN, TOTAL Routine 08/20/2025 2:54 PM EST Type 2 diabetes mellitus without complication, without long-term current use of insulin (HCC) POCT GLUCOSE (CPT-[id number]) Routine 08/20/2025 2:54 PM EST Type 2 diabetes mellitus without complication, without long-term current use of insulin (HCC) documented in this encounter Results * POCT glucose manually resulted (CPT-[id number]) (08/20/2025 2:54 PM EST) Glucose Blood, POC 83 60 - 200 mg/dL QC Media Lot # Comment:[id number] Lot# Expiration Date Comment:11/25/2025 Blood Capillary blood specimen / Unknown 08/20/2025 2:54 PM EST [facility] POINT OF CARE TEST ENTER/ EDIT ORDERABLES Final Result * POCT A1c (08/20/2025 2:54 PM EST) Hemoglobin A1C 5.0 4.0 - 5.7 % QC Media Lot # Comment:[id number] Lot# Expiration Date Comment:07/25/2027 Blood 08/20/2025 2:54 PM EST Result [facility] POINT OF CARE TEST ENTER/ EDIT ORDERABLES Final Result documented in this encounter Visit Diagnoses Diagnosis Type 2 diabetes mellitus without complication, without long-term current use of insulin (HCC)- Primary Primary hypertension Unspecified essential hypertension Hypothyroidism, unspecified type Hyperparathyroidism (CMS/HCC) Hyperparathyroidism, unspecified Anemia, unspecified type Screening mammogram for breast cancer Encounter for screening for malignant neoplasm of colon Eczema, unspecified type Onychomycosis Dermatophytosis of nail Vaginal odor Unspecified symptom associated with female genital organs Anxiety and depression Encounter for physical examination Vasomotor symptoms due to menopause Mixed incontinence Mixed incontinence urge and stress (male)(female) Encounter for immunization documented in this encounter Additional Health Concerns Assessment Noted Time PHQ-9 Depression Total Score: 10 024 9:42 AM EDT documented as of this encounter Care Teams Trimmer Machine Relationship Specialty Start Date End Date Zac Hugo CNP PCP - General Family Medicine 03/28/25 Ariel Jose RN [address] [place] [address] Registered Nurse Family Medicine 04/14/25 Amada Walters 04/14/25 Saloni Kaminski Monomer Recovery SupervisorMunicipal Services Manager 05/19/23 Rosemarie Palmer [address] [place] [address] Nurse Practitioner Neurology 09/18/23 Milad Mcfarland Monomer Recovery SupervisorMunicipal Services Manager 10/01/24 documented as of this encounter
--- OUTSIDE RECORDS SUMMARY | 2025-08-20 16:06 | XMS_ITS | Encounter Summary ---
Author Organization [employer] Address [address] [facility] 7t [place] [address] Care Team Providers Care Office Support Associate Name Role Phone Gabbie Cisneros MD Primary Care Provider [phone] Zac Hugo CNP Primary Care Provider [phone] Ariel Jose RN Unavailable [phone] Amada Walters Unavailable Reason for Visit * Reason Comments Med Refill Encounter Details Date Type Department Care Team (Late st Contact Info) Description 03/22/2025 Refill [facility] MED & PEDS [address] [place], [place] [phone] Gabbie Cisneros MD [address] [place], [place] [phone] Unspecified asthma with (acute) exacerbation Social History [...] Description 09/26/2025 11:30 AM EST Office Visit [facility] OPTOMETRY [address] [place] [address] Tobias, Cristina, OD [address] [place] [address] 10/07/2025 10:30 AM EST Office Visit [facility] MED & PEDS [address] [place] [address] Zac Hugo CNP [address] [place] [address] documented as of this encounter Goals Goal [...] documented as of this encounter Care Teams Office Support Associate Relationship Specialty Start Date End Date Gabbie Cisneros MD [address] [place] [address] PCP - General Family Medicine 05/02/18 03/27/25 Zac Hugo CNP [address] [place] [address] PCP - General Family Medicine 03/28/25 Ariel Jose RN [address] [place] [address] Registered Nurse Family Medicine 04/14/25 Amada Walters 04/14/25 Saloni Kaminski Tool Polishing Machine OperatorStatistical Developer 05/19/23 Rosemarie Palmer [address] [place] [address] Nurse Practitioner Neurology 09/18/23 Milad Mcfarland Tool Polishing Machine OperatorStatistical Developer 10/01/24 documented as of this encounter
--- OUTSIDE RECORDS SUMMARY | 2025-08-20 16:06 | XMS_ITS ---
Author Organization [employer] Address [address] [facility] 7t [place] [address] Care Team Providers Care Charter Pilot Name Role Phone Zac Hugo CNP Primary Care Provider [phone] Ariel Jose RN Unavailable [phone] Amada Walters Unavailable [facility] Complex Status:Outreach In Progress (Enrolling) Start date:04/14/2025 Enrollment reason:ADT Feed Overview [facility] 04/11/25. Please outreach for enrollment. Case Team Name Relationship Phone Amada Walters(Responsible Staff) [phone] Continued Care and Services Coordination
--- OUTSIDE RECORDS SUMMARY | 2025-08-20 16:06 | XMS_ITS | Encounter Summary ---
Author Organization [employer] Address [address] [facility] 7t [place] [address] Care Team Providers Care Ed Teacher Name Role Phone Gabbie Cisneros MD Primary Care Provider [phone] Zca Hugo CNP Primary Care Provider [phone] Ariel Jose RN Unavailable [phone] Amada Walters Unavailable Reason for Visit * Reason Onset Date Comments Referral 09/27/2024 Encounter Details Date Type Department Care Team (Late st Contact Info) Description 09/27/2024 Telephone [facility] MEDICINE [address] [place] [address] Gabbie Cisneros MD [address] [place], [place] [phone] Referral Social History Tobacco Use Types Packs/Day [...] PM EST Pt is already established with [facility] Rheumatology. Pt needs to call to schedule appt. * Telephone Encounter - Denny Hernandez - 09/27/2024 2:37 PM EST Tc from Milad Stating that pt is requesting a referral to Rheumatology. Contact Milad at [phone] documented in this encounter Plan of Treatment Upcoming Encounters Date Type Department Care Team (Late st Contact Info) Description 09/26/2025 11:30 AM EST Office Visit [facility] OPTOMETRY [address] [place], [place] [phone] Tobias, Cristina, OD [address] [place] [address] 10/07/2025 10:30 AM EST Office Visit [facility] CH[facility] MED & PEDS [address] [place] [address] Zac Hugo CNP [address] [place] [address] documented as of this encounter Goals Goal [...] documented as of this encounter Care Teams Ed Teacher Relationship Specialty Start Date End Date Gabbie Cisneros MD [address] [place] [address] PCP - General Family Medicine 05/02/18 03/27/25 Zac Hugo CNP [address] [place] [address] PCP - General Family Medicine 03/28/25 Ariel Jose, ZULEYKA [address] [place] [address] Registered Nurse Family Medicine 04/14/25 Amada Walters 04/14/25 Saloni Kaminski Shell Reprint OperatorField Research Assistant 05/19/23 Rosemarie Palmer [address] [place] [address] Nurse Practitioner Neurology 09/18/23 Milad Mcfarland Shell Reprint OperatorField Research Assistant 10/01/24 documented as of this encounter
--- OUTSIDE RECORDS SUMMARY | 2025-08-20 16:06 | XMS_ITS | Encounter Summary ---
Author Organization [employer] Address [address] [facility] [address] [address] 7[address] [place] [address] Care Team Providers Care Tapper Shank Name Role Phone Gabbie Cisneros MD Primary Care Provider [phone] Zac Hugo CNP Primary Care Provider [phone] Ariel Jose RN Unavailable [phone] Amada Walters Unavailable Encounter Details Date Type Department Care Team (Late st Contact Info) Description 01/19/2024 Orders Only [facility] MED & PEDS [address] [place], [place] [phone] Provider, MD Marina Social History Tobacco Use [...] Description 09/26/2025 11:30 AM EST Office Visit [facility] OPTOMETRY [address] [place] [address] TobiasCristina, OD [address] [place] [address] 10/07/2025 10:30 AM EST Office Visit [facility] MED [facility] PEDS [address] [place], [place] [phone] Zac Hugo, MISHA [address] [place], [place] [phone] documented as of this encounter Goals Goal [...] documented as of this encounter Care Teams Tapper Shank Relationship Specialty Start Date End Date Gabbie Cisneros MD [address] [place] [address] PCP - General Family Medicine 05/02/18 03/27/25 Zac Hugo CNP [address] [place] [address] PCP - General Family Medicine 03/28/25 Ariel Jose RN [address] [place] [address] Registered Nurse Family Medicine 04/14/25 Amada Walters 04/14/25 Saloni Kaminski Audio Visual Collections CoordinatorPolice District Switchboard Operator 05/19/23 Rosemarie Palmer [address] [place] [address] Nurse Practitioner Neurology 09/18/23 Milad Mcfarland Audio Visual Collections CoordinatorPolice District Switchboard Operator 10/01/24 documented as of this encounter
--- OUTSIDE RECORDS SUMMARY | 2025-08-20 16:06 | XMS_ITS | Encounter Summary ---
Author Organization [employer] Address [address] [facility] [address] 7t [place] [address] Care Team Providers Care Academy Director Name Role Phone Gabbie Cisneros MD Primary Care Provider [phone] Zac Hugo CNP Primary Care Provider [phone] Ariel Jose RN Unavailable [phone] Amada Walters Unavailable Encounter Details Date Type Department Care Team (Late st Contact Info) Description 10/16/2023 Telephone [facility] MED & PEDS [address] [place], [place] [phone] Gabbie Cisneros MD [address] [place], [place] [phone] Social History Tobacco Use Types Packs/Day Years [...] Description 09/26/2025 11:30 AM EST Office Visit [facility] OPTOMETRY [address] [place] [address] Cristina Collado, OD [address] [place] [address] 10/07/2025 10:30 AM EST Office Visit [facility] MED [facility] PEDS [address] [place] [address] Zac Hugo CNP [address] [place] [address] documented as of this encounter Goals Goal [...] documented as of this encounter Care Teams Academy Director Relationship Specialty Start Date End Date Gabbie Cisneros MD [address] [place] [address] PCP - General Family Medicine 05/02/18 03/27/25 Zac Hugo CNP [address] [place] [address] PCP - General Family Medicine 03/28/25 Ariel Jose RN [address] [place] [address] Registered Nurse Family Medicine 04/14/25 Amada Walters 04/14/25 Saloni Kaminski Aircraft Stress AnalystFast Brim Pouncer 05/19/23 Rosemarie Palmer [address] [place] [address] Nurse Practitioner Neurology 09/18/23 Milad Mcfarland Aircraft Stress AnalystFast Brim Pouncer 10/01/24 documented as of this encounter
--- OUTSIDE RECORDS SUMMARY | 2025-08-20 16:06 | XMS_ITS | Encounter Summary ---
Author Organization [employer] Address [address] [facility] 7t [place] [address] Care Team Providers Care Plastic Machine Operator Name Role Phone Gabbie Cisneros MD Primary Care Provider [phone] Zac Hugo CNP Primary Care Provider [phone] Ariel Jose RN Unavailable [phone] Amada Walters Unavailable Reason for Visit * Reason Onset Date Comments call back 09/23/2022 Encounter Details Date Type Department Care Team (Late st Contact Info) Description 09/23/2022 Telephone [facility] MEDICINE [address] [place] [address] Gabbie Cisneros MD [address] [place], [place] [phone] call back Social History Tobacco Use Types [...] EST Return call placed to Jackie from [facility] who states pt has been c/o increased depression. Advised pt has an upcoming appt with Andrew Blake and can discuss further during that appt. Also pt is reporting loss of appetite. Advised to address concern during her upcoming HDF appt with PCP. Also pt's singular is prescribed by an outside provider and should contact their office for refill. Jackie agreed to plan. * Telephone Encounter - Grabiel Adkins - 09/23/2022 3:25 PM EST Tc from jackie with [facility] visiting nurse requesting a call back regarding pt medication and having blood work done Please contact jackie at [phone] documented in this encounter Plan of Treatment Upcoming Encounters Date Type Department Care Team (Late st Contact Info) Description 09/26/2025 11:30 AM EST Office Visit [facility] OPTOMETRY [address] [place] [address] Tobias, Cristina, OD [address] [place] [address] 10/07/2025 10:30 AM EST Office Visit [facility] CHC MED & PEDS [address] [place] [address] Zac Hugo CNP [address] [place] [address] documented as of this encounter Visit Diagnoses Not on filedocumented in this encounter Additional Health Concerns Assessment Noted Time PHQ-9 Depression Total Score: 9 08/29/19 23 9:49 AM EST documented as of this encounter Care Teams Plastic Machine Operator Relationship Specialty Start Date End Date Gabbie Cisneros MD [address] [place] [address] PCP - General Family Medicine 05/02/18 03/27/25 Zac Hugo CNP [address] [place] [address] PCP - General Family Medicine 03/28/25 Ariel Jose, RN [address] [place] [address] Registered Nurse Family Medicine 04/14/25 Amada Walters 04/14/25 Saloni Kaminski Vegetable InspectorSupervisor Seaming 05/19/23 Rosemarie Palmer [address] [place] [address] Nurse Practitioner Neurology 09/18/23 Milad Mcfarland Vegetable InspectorSupervisor Seaming 10/01/24 documented as of this encounter
--- OUTSIDE RECORDS SUMMARY | 2025-08-20 16:06 | XMS_ITS | Clinical Summary ---
Author Organization [facility] Address [address] [place] [address] Phone Care Team Providers Care Storage Administrator Name Role Phone Gabbie Cisneros MD Primary Care Provider [phone] Allergies Active Allergy Reactions Criticality Noted Date [...] s of breath High 10/26/2017 Shellfish Allergy Peconic 03/24/2024 Watermelon Shortness of breath High 07/30/2022 [...] for up to 90 days. 8 Active tlrds-C-temgkzf sidase (BEANO ORAL) NPEDK-K-USOVJTHF IDASE (BEANO) TAB : Take 1 tablet [...] for wheezing. 1 each 1 5 Active semaglutide (Wegovy) 0.25 mg/0.5 mL injection penIndications: Class 1 obesity due to excess calories with body mass index (BMI) of 32.0 to 32.9 in adult, unspecified whether serious comorbidity present Inject 0.25 mg under the skin every 7 (seven) days. 4 mL 1 5 Active vitamin A 3,000 mcg (10,000 unit) capsule TAKE ONE CAPSULE EVERY MORNING 30 capsule 3 5 Active Active Problems Problem Noted [...] Care Team Description 05/28/2025 Telephone Bariatric Surgery [address] [place] [address] Will Verduzco MD from Last 3 Months Immunizations Immunization Administration Dates Next Due Pfizer (ages 12 & older) DEISI S-CoV-2 COVID-19, mRNA, LNP-S, adelina-sucrose, preservative free 11/12/2021 Pfizer SARS-CoV-2 COVID-19, mRNA, LNP-S, preservative free 01/01/2021,12/11/2020 Pneumococcal polysaccharide 23 valent (Pneumovax 23) 2yo and older 02/05/2018 Medical History Medical History Date Comments Asthma DX:Asthma Seizure ([facility]/HCC V24, [facility]/HCC V28) DX:Seizure ([facility]) Hypoglycemia DX:Hypoglycemia Social History Tobacco Use Types Packs/Day Years Used Date Smoking Tobacco: Never Smokeless Tobacco: Former Comments Unknown Sex and Gender Information Value Date Recorded Sex Assigned at Female 07/16/2024 5:02 PM EST Legal Sex Female 4:57 PM EST Gender Identity Female 11/28/2024 10:28 AM EDT Sexual Orientation Straight 11/28/2024 10 :28 AM EDT Last Filed Vital Signs Vital [...] PM EST Office Visit Bariatric Surgery - [address] [place] [address] Will Verduzco MD [address] [place] [phone] Health Maintenance Due Date Last Done [...] Procedure Name Priority Date/Time Associated Diagnosis Comments COMPREHENSIVE METABOLIC PANEL STAT 03/10/2025 12:37 PM EDT HEMOGLOBIN A1C Routine 09/26/2023 COLONOSCOPY Routine 05/13/2020 HPV Routine 04/09/2018 URINE ALBUMIN CREATININE RATIO Routine 12/06/2017 LIPID PANEL Routine 12/06/2017 from Last 3 Months or Most Recently Relevant to Health Maintenance Results * (ABNORMAL) Comprehensive metabolic panel (03/10/2025 12:37 PM EDT) Sodium 139 135 - 145 mmol/L LAB CHEMISTRY METHOD 03/10/2025 1:19 PM [facility] Potassium 4.3 3.5 - 5.1 mmol/L LAB CHEMISTRY METHOD 03/10/2025 1:19 PM [facility] Comment:Slight Hemolysis may affect test result(s). Chloride 104 98 - 107 mmol/L LAB CHEMISTRY METHOD 03/10/2025 1:19 PM [facility] CO2 29 24 - 32 mmol/L LAB CHEMISTRY METHOD 03/10/2025 1:19 PM [facility] Anion Gap 6 5 - 14 LAB CHEMISTRY METHOD 03/10/2025 1:19 PM [facility] Glucose 104 70 - 199 mg/dL LAB CHEMISTRY METHOD 03/10/2025 1:19 PM [facility] BUN 15 7 - 17 mg/dL LAB CHEMISTRY METHOD 03/10/2025 1:19 PM [facility] Creatinine 0.64 0.50 - 1.00 mg/dL LAB CHEMISTRY METHOD 03/10/2025 1:19 PM [facility] eGFR 105 >=60 mL/min/1. 73m2 LAB CHEMISTRY METHOD 03/10/2025 1:19 PM [facility] Comment:Calculation based on the Chronic Kidney Disease Epidemiology Collaboration (CKD-EPI) equation refit without adjustment for race. BUN/Creatinine Ratio 23.4(H) 12.0 - 20.0 LAB CHEMISTRY METHOD 03/10/2025 1:19 PM [facility] Calcium 8.5 8.4 - 10.2 mg/dL LAB CHEMISTRY METHOD 03/10/2025 1:19 PM EDT [facility] AST (SGOT) 32 5 - 40 unit/L LAB CHEMISTRY METHOD 03/10/2025 1:19 PM EDT [facility] Comment:Slight Hemolysis may affect test result(s). ALT (SGPT) 31 7 - 52 unit/L LAB CHEMISTRY METHOD 03/10/2025 1:19 PM EDT [facility] Alkaline Phosphatase 62 34 - 104 unit/L LAB CHEMISTRY METHOD 03/10/2025 1:19 PM EDT [facility] Total Protein 6.8 6.4 - 8.5 g/dL LAB CHEMISTRY METHOD 03/10[facility]25 [facility] Albumin 4.4 3.5 - 5.0 g/dL LAB CHEMISTRY METHOD 03/10/2025 1:[facility] Total Bilirubin 0.3 0.3 - 1.0 mg/dL LAB CHEMISTRY METHOD 03/10/2025 1:19 PM EDT [facility] Blood Venous blood specimen / Unknown Venipuncture / Unknown 03/10/2025 12:37 PM EDT 03/10/2025 12:39 PM EDT Jean Vieyra DO LAB BLOOD ORDERABLES Final Re sult [facility] [address] [place] [address], [place] [phone] * Hemoglobin A1c (09/26/2023) Pathologist [facility] [place] Hemoglobin A1C 5.1 <=6.5 % Blood Venous blood specimen / Unknown Historical Provider LAB BLOOD ORDERABLES Awa l Result * Colonoscopy (05/13/2020) Pathologist [facility] Colonoscopy Abstracted, No interpretation Anatomical Region Laterality Modality Other Historical Provider HEALTH MAINTENANCE Final Result * Cervical Cancer Screening: HPV (04/09/2018) Cervical Cancer Screening: HPV Abstracted ,Negative [facility] Provider HEALTH MAINTENANCE Final Result * Urine Albumin Creatinine Ratio (12/06/2017) Pathologist [facility] Urine Albumin Creatinine Ratio Abstracted [facility] Provider HEALTH MAINTENANCE Final Result * Lipid panel (12/06/2017) Pathologist [facility] [place] LDL/HDL Ratio 3 0 - 4 Triglycerides 140 0 - 150 mg/dL Cholesterol 190 0 - 200 mg/dL HDL 75 >=40 mg/dL LDL Cholesterol 87 0 - 100 mg/dL Blood Venous blood specimen / Unknown [facility] Provider LAB BLOOD ORDERABLES Awa l Result from Last 3 Months or Most Recently Relevant to Health Maintenance Insurance MEDICAID - [place] Care Teams Storage Administrator Relationship Specialty Start Date End Date Gabbie Cisneros MD [address] [place] [address] PCP - General 11/17/18
--- OUTSIDE RECORDS SUMMARY | 2025-08-20 16:06 | XMS_ITS | Encounter Summary ---
Author Organization [employer] Address [address] [facility] 7t [place] [address] Care Team Providers Care Head Rigger Name Role Phone Gabbie Cisneros MD Primary Care Provider [phone] Zac Hugo CNP Primary Care Provider [phone] Ariel Jose RN Unavailable [phone] Amdaa Walters Unavailable Encounter Details Date Type Department Care Team (Late st Contact Info) Description 01/18/2024 Orders Only [place] [address] [place] [address] Provider, MD Marina Social History Tobacco Use [...] Description 09/26/2025 11:30 AM EST Office Visit [facility] OPTOMETRY [address] [place] [address] Tobias, Cristina, OD [address] [place] [address] 10/07/2025 10:30 AM EST Office Visit [facility] MED [facility] PEDS [address] [place], [place] [phone] Zac Hugo, MISHA [address] [place], [place] [phone] documented as of this encounter Goals Goal [...] as of this encounter Care Teams Head Rigger Relationship Specialty Start Date End Date Gabbie Cisneros MD [address] [place] [address] PCP - General Family Medicine 05/02/18 03/27/25 Zac Hugo CNP [address] [place] [address] PCP - General Family Medicine 03/28/25 Ariel Jose RN [address] [place] [address] Registered Nurse Family Medicine 04/14/25 Amada Walters 04/14/25 Saloni Kaminski Assembler Lay UpsButton Riveter 05/19/23 Rosemarie Palmer [address] [place] [address] Nurse Practitioner Neurology 09/18/23 Milad Mcfarland Assembler Lay UpsButton Riveter 10/01/24 documented as of this encounter
--- OUTSIDE RECORDS SUMMARY | 2025-08-20 16:06 | XMS_ITS | Clinical Summary ---
Author Organization [facility] Prior to 01/18/25 Address [address] [place] [address] Care Team Providers Care Crossing Watchman Name Role Phone Gabbie Cisneros MD Primary Care Provider [phone] Allergies Active Allergy Reactions Criticality Noted Date Comments Banana 07/30/2022 Codeine 11/17/2018 Iodinated Contrast Media 07/26/2022 Can take with premeds (benadryl and steroid) Morphine 07/26/2022 Nuts 07/30/2022 Shellfish 07/30/2022 [place] 03/24/2024 Watermelon 07/30/2022 Medications Medication Sig Dispensed [...] age to complete this topic Care Teams Crossing Watchman Relationship Specialty Start Date End Date Gabbie Cisneros MD [address] [place] [address] PCP - General Adult Medicine 11/17/18
--- OUTSIDE RECORDS SUMMARY | 2025-08-20 16:06 | XMS_ITS | Clinical Summary ---
Author Organization [facility] Address [address] [place] [address] Care Team Providers Care Fine Jewelry Sales Associate Name Role Phone Gabbie Cisneros Primary Care Provider [phone] Allergies Active Allergy Reactions Criticality Noted Date [...] 1 tablet by mouth daily. Active FreeStyle Madbury Lite meter TEST BLOOD SUGAR DIRECTED 2 [...] TAKE ONE TABLET AT BEDTIME 3 Active mhwgnipxmasw-Lt-uy on-minerals tablet Take 1 tablet by mouth. [...] Encounters Date Type Department Care Team Description 08/15/2025 Telephone [facility] [address] [place] [address] Sewer And Inspector: Pao Valdez Telephone Intake, Staff PAC Clinical Questions from Last 3 Months Family History Medical [...] Years Used Date Smoking Tobacco: Former Cigarettes 0 Q uit: 2010 Smokeless Tobacco: Never Tobacco [...] Info) Description 08/27/2025 11:00 AM EST Appointment [facility] Cardiac Ultrasound [address] [place] [address] 10/21/2025 11:00 AM EST Follow-Up [facility] [address] [place] [address] Sewer And Inspector: Estefani Carrera MD [address] [place] [address] Health Maintenance Due Date Last Done Comments Cologmyla 1969 Colonoscopy 1969 HIV Screening 1969 HPV and Pap Smear 1969 Hepatitis C Screening 1969 Sigmoidoscopy 1969 Ophthalmology Exam 12/10/1979 Urine Microalbumin 12/10/1979 Mammogram 2009 Pneumococcal Vaccine: 50+ Ye ars (2 of 2 - PCV) 04/16/2019 04/16/2018, 02/05/2018, 03/12/2013, Additional history exists Hemoglobin A1C 04/06/2023 10/07/2022, 08/23/2022 Alcohol/Substance Use Screening 08/21/2024 Depression Screening and Follow-Up 08/21/2024 Social Drivers of Health Gabriela ual Screening 08/21/2024 Colon Cancer Screening 09/26/2024 FOBT / Fit Test 09/26/2024 09/26/2023, 07/21, 07/18/2022 Influenza Vaccine (#1) 2025 , 05/11/2022, 07/02/2021, Additional history exists COVID-19 Vaccine (4 - 2024-2 6 season) 2025 11/12/2021, 01/01/2021, 12/11/2020 Basic Metabolic Panel 03/10/2026 03/10/2025 , 06/14/2024, 03/29/2024, Additional history exists Cervical Cancer Screening 12/11/2026 Pap Smear 12/11/2026 12/12/2023, 04/09/2018 DTaP,Tdap,and Td Vaccines (3 - Td or Tdap) 04/16/2028 04/16/2018, 03/12/2013 Hepatitis B Vaccines Completed 04/15/2014, 12/18/2013, 11/14/2013 Zoster Vaccines Completed 09/10/2020, 07/09/2020 Procedures * Due to [place] state law, this organization might not be sharing negative HIV tests. Procedure Name Priority Date/Time Associated Diagnosis Comments BASIC METABOLIC PANEL Routine 03/29/2024 3:51 PM EDT Pituitary microadenoma HEMOGLOBIN A1C Routine 10/07/2022 2:01 PM EST Type 2 diabetes mellitus without complication, without long-term current use of insulin from Last 3 Months or Most Recently Relevant to Health Maintenance Results * Due to [place] state law, this organization might not be sharing negative HIV tests. * Basic Metabolic Panel (03/29/2024 3:51 PM EDT) NA 141 135 - 145 mmol/L 03/29/2024 5:29 PM EDT [facility] K 4.0 3.5 - 5.3 mmol/L 03/29/2024 5:29 PM EDT [facility] Cl 104 98 - 107 mmol/L 03/29/2024 5:29 PM EDT [facility] CO2 27 24 - 32 mmol/L 03/29/2024 5:29 PM EDT [facility] BUN 11 7 - 23 mg/dL 03/29/2024 5:29 PM EDT [facility] Creatinine 0.65 0.50 - 1.20 mg/dL 03/29/2024 5:29 PM EDT [facility] Glucose 98 65 - 99 mg/dL 03/29/2024 5:29 PM EDT [facility] Calcium 8.7 8.6 - 10.5 mg/dL 03/29/2024 5:29 PM EDT [facility] Anion Gap 10 5 - 15 03/29/2024 5:29 PM EDT [facility] eGFR >90 >=60 mL/min/1. 73m2 03/29/2024 5:29 PM EDT [facility] Comment:The estimated glomer ular [...] EDT 03/29/2024 4:43 PM EDT Zoila Sue VARIETY LATHE OPERATOR LAB BLOOD ORDERABLES Final Result Performing Organization Address [facility]/ZIP Co de Phone Number Status [facility] [address] [place] [address], [place] * Hemoglobin A1c (10/07/2022 2:01 PM EST) Hemoglobin A1C 4.9 <5.7 % of total Hgb 10/08/2022 6:38 AM [employer] Comment: For the purpose of screening for [...] (MG/DL) 94 mg/dL 10/08/2022 6:38 AM EST [employer] e[facility] (MMOL/L) 5.2 mmol/L 10/08/2022 6:38 AM [employer] Blood Structure of peripheral vein / Unknown Venipuncture / Unknown 10/07/2022 2:01 PM EST 10/07/2022 2:33 PM EST Narrative [facility] [place] - 10/08/2022 6:38 AM EST [facility] Received Date:[id number] us Zoila Sue NP LAB BLOOD ORDERABLES Final Result Performing Organization Address City/[facility]/ZIP Co de Phone Number MICHAEL BRIZUELAPRACHI [address] [place] [address] 3rd Floor, [place] [address], [place] [phone] [facility] [address] [facility] 3rd Floor, [place] [address], from Last 3 Months or Most Recently Relevant to Health Maintenance [place] [address] [address] [place] [address] Care Teams Fine Jewelry Sales Associate Relationship Specialty Start Date End Date Gabbie Cisneros [address] [place] [address] PCP - General Family Medicine 06/15/22
--- OUTSIDE RECORDS SUMMARY | 2025-08-20 16:06 | XMS_ITS | Encounter Summary ---
Author Organization [facility] Address [address] [facility] [address] [place] [address] Phone Care Team Providers Care Customer Security Clerk Name Role Phone Gabbie Cisneros MD Primary Care Provider [phone] Encounter Details Date Type Department Care Team (Late st Contact Info) Description 08/18/2025 Telephone [facility] [address] [facility], 8th Floor, [address] [place] [address] Sunitha Cisneros MD [address] [place] [phone] [email or web address] Social History Tobacco Use Types Packs/Day Years [...] Description 08/25/2025 11:00 AM EST Office Visit [facility] [address] [place] [address] Sunitha Cisneros MD [address] [place] [phone] [email or web address] Joanne Milton, PT [address] [place] [address] 09/02/2025 11:30 AM EST Office Visit [facility] [address] [place] [address] Sunitha Cisneros MD [address] [place] [phone] [email or web address] Joanne Milton, PT [address] [place] [address] 09/11/2025 9:00 AM EST Telemedicine [facility] [address] [place] [address], 8th Floor, [address] [place] [address] Jean Davila MD, PhD [address] [place], [place] [address] [place] [address] 10/27/2025 3:30 PM EDT Telemedicine [facility] [address] [facility], 8th Floor, [address] [place] [address] Sunitha Cisneros MD [address] [phone] [email or web address] documented as of this encounter Visit Diagnoses Not on filedocumented in this encounter Additional Health Concerns Assessment Noted Time PHQ-9 Depression Total Score: 16 025 11:12 AM EST PHQ-2 Depression Total Score: 4 09/16/19 25 11:12 AM EST documented as of this encounter Care Teams Customer Security Clerk Relationship Specialty Start Date End Date Gabbie Cisneros MD [address] [place] [address] PCP - General Family Medicine 04/14/23 documented as of this encounter Additional Source Comments The information contained in this document represents components of the legal health record. It is not the complete legal health record.[facility]
--- OUTSIDE RECORDS SUMMARY | 2025-08-20 16:06 | XMS_ITS ---
Author Organization [employer] Address [address] [facility] 7t [place] [address] Care Team Providers Care Benefits Administrator Name Role Phone Zac Hugo CNP Primary Care Provider [phone] Ariel Jose RN Unavailable [phone] Amada Walters Unavailable CM Complex Status:Outreach In Progress (Enrolling) Start date:04/14/2025 Enrollment reason:ADT Feed Overview ADT-[facility] ED 04/11/25 Case Team Name Relationship Phone Ariel Jose RN(Responsible Staff) Registered Nurse [phone] Continued Care and Services Coordination
--- OUTSIDE RECORDS SUMMARY | 2025-08-20 16:06 | XMS_ITS | Encounter Summary ---
Author Organization [employer] Address [address] [facility] 7t [place] [address] Care Team Providers Care Chair Caner Name Role Phone Gabbie Cisneros MD Primary Care Provider [phone] Zac Hugo CNP Primary Care Provider [phone] Ariel Jose RN Unavailable [phone] Amada Walters Unavailable Encounter Details Date Type Department Care Team (Late st Contact Info) Description 03/10/2025 Orders Only [facility] [address] [place] [address] Provider, MD Marina Social History Tobacco Use [...] Description 09/26/2025 11:30 AM EST Office Visit [facility] OPTOMETRY [address] [place] [address] Tobias, Cristina, OD [address] [place] [address] 10/07/2025 10:30 AM EST Office Visit [facility] CH[facility] MED & PEDS [address] [place] [address] Zac Hugo, ARBORICULTURE INSTRUCTOR [address] [place] [address] documented as of this encounter Goals Goal [...] Neck Computed Tomogra phy us Historical Provider MD [place] PROCEDURES Final R esult * CTA Head Neck w/ and w/o Contrast (03/10/2025 2:08 PM EDT) Anatomical Region Laterality Modality Head, Neck Computed Tomogra phy us Historical Provider MD [place] CT PROCEDURES Final R esult documented in this encounter Visit Diagnoses Not on filedocumented in this encounter Additional Health Concerns Assessment Noted Time PHQ-9 Depression Total Score: 10 024 9:42 AM EDT documented as of this encounter Care Teams Chair Caner Relationship Specialty Start Date End Date Gabbie Cisneros MD [address] [place] [address] PCP - General Family Medicine 05/02/18 03/27/25 Zac Hugo CNP [address] [place] [address] PCP - General Family Medicine 03/28/25 Ariel Jose RN [address] [place] [address] Registered Nurse Family Medicine 04/14/25 Amada Walters 04/14/25 Saloni Kaminski Commercial Tire Service TechnicianSas Developer Analyst 05/19/23 Rosemarie Palmer [address] [place] [address] Nurse Practitioner Neurology 09/18/23 Milad Mcfarland Commercial Tire Service TechnicianSas Developer Analyst 10/01/24 documented as of this encounter
--- OUTSIDE RECORDS SUMMARY | 2025-08-20 16:06 | XMS_ITS | Data Portability ---
Author Organization [place] - [facility], Allergy Address [address] [address] Care Team Providers Care Radio Frequency Engineer Name Role Phone RAÚL GOLDSMITH Primary Care Provider [phone] Assessment No assessment recorded. Plan of Treatment Reminders Order Date Submit Date Provider Last Modified By Organization Details Last Modified Time Details Appointments None recorded. Lab None recorded. Referral None recorded. Procedures None recorded. Surgeries None recorded. Imaging None recorded. Medication Orders clotrimaz ole-betam ethasone 1 %-0.05 % topical cream 025 025 [id number], [address] [place], [place], [id number], 10:09:05 Patient TargetsNo targets recorded. Patient InstructionsNo instructions recorded. Reason for Referral None Reported. Results Created Date Observation Date Name Description Value Unit Range Abnormal Flag Note LastModifiedBy Organization Detail LastModifiedTime 10/15/19 audio gram No observ ation record ed. BARCODE Not Available 2024 10:40:17 10/15/1907/29/2024 CT, maxil lofac ial, w/o contr ast No observ ation record ed. [email or web address] Not Available 09/22 16:43:45 10/15/1907/29/2024 CT, maxil lofac ial, w/o contr ast No observ ation record ed. [email or web address] Not Available 09/22 16:06:00 Result Notes None recorded. Problems Name Problem SNOMED Code Status Onset Date Resolution Date Notes Provider Name and Address Organization Details Recorded Time Dysphonia 89319047 Active 2019 Hoarsenes s; Note: Date Diagnosed : 0 9:46 AM (R49.0) Not Available [facility] 4 02:14:45 Abnormal auditory perceptio n 91620489 Active 2019 Other abnormal auditory perceptio ns, bilateral ; Note: Date Diagnosed : 0 10:38 AM (H93.293) Not Available [facility] 4 02:13:44 Dizziness and giddiness 098633010 Active 2019 Dizziness and giddiness ; Note: Date Diagnosed : 0 10:38 AM (R42) Not Available [facility] 4 02:13:41 Bilateral tinnitus 92578336327 02 Active 2024 JUNIOR HUBBARD MA, CCC-A 100 [facility],[place]A [facility], [place], [address] , [place] - [facility] [place] 5 09:44:32 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 - [facility] [place] 5 10:05:08 Headache 67993075 Active 2024 NEPTALI PENN MD 100 [facility],[place] [address], [place], [address] , [facility] - [facility] [place] 5 10:06:26 Unsteady when walking 66781043 Active 2024 NEPTALI PENN MD 100 [facility],[place] [facility], [place], [address] , [facility] - [facility] [place] 5 10:08:03 Problem Notes None recorded. Procedures Surgical History Date Name Laterality Status Provider Name and Address Organization Details Recorded Time 10/15/2024 Air & Speech Audio with Tymps - 25776, 80441 & 28673 completed JUNIOR HUBBARD MA, CCC-A 100 [facility],[place] [address], [place], [address], [place] - [facility] 10/15/2024 09:44:42 Imaging Results None recorded. Procedure Notes None recorded. Medical Equipment None Reported. Allergies Allergen ID Allergen Name Allergen Category Reaction Reaction Severity Criticality Documentation Date Start Date Code Code System Note Provider Name and Address Organization Details Recorded Time 77289 codeine medicatio n other Not available Not available 01/02/2024 2670 RxNorm React ion: other react ion, Unkno wn; Not Available [facility] 4 00:50:58 01329 morphine medicatio n other Not available Not available 01/02/2024 7052 RxNorm React ion: other react ion, Unkno wn; Not Available [facility] 4 00:51:04 51253 Iodinated contrast media (substanc e) medicatio n other Not available Not available 01/02/2024 84395 2003 SNOMED React ion: other react ion, Unkno wn; Not Available [facility] 4 00:51:09 Medications Name Sig Start Date [...] topical cream 10/15 completed Medicati on ID: [id number] B rand Name: triamcin olone acetonid e [...] mg tablet 10/15 completed Medicati on ID: 627801 B rand Name: sumatrip napier succinat e [...] mg tablet 10/15 completed Medicati on ID: 708365 B rand Name: amitript yline Se nd [...] mg capsule 10/15 completed Medicati on ID: [id number] B rand Name: gabapent in Send Method: [...] elayed release 10/15 completed Medicati on ID: [id number] B rand Name: duloxeti ne Send Method: [...] chewable tablet 10/15 completed Medicati on ID: 790942 B rand Name: Vitamin D3 Send Method: E-Prescr ibed Sub s Allowed: subs OK Speci al Instruct ion: VENDING MACHINE TECHNICIAN 2 TS PO QD Medic ationGen ericName : Vitamin D3 Not Available Not Available Not Available [facility] with Large Mask USE DIRECTED TWICE DAILY [...] Details Last Updated DateTime 10/15/2024 160.02 cm 34762.3 g Cynthia Benítez [place] - [facility] 10/15/2024 09:51:15 Social History None recorded. [...] Diagnosis SNOMED-CT Code Diagnosis ICD10 Code Diagnosis IMO Codes Diagnosis Note 06302 NEPTALI PENN MD [facility] [address] [address] 10/15/2024 09:03:00 10/15/2024 10:08:13 Bilateral tinnitus 2762116528 102 H93.13 Audiologic al evaluation results:Ri ght [...] caffeine, salty meals and NSAIDs. Dermal mycosis 72031362 B36.9 The skin of the left external [...] reduce the risk of recurrence . Headache 55705084 R51.9 Patient reporting facial headaches between her [...] reported nasal dryness. Unsteady when walking 22 938191 R26.89 Patient with balance disturbanc e which [...] continue to work with her orthopedic environmental education specialist in this regard. Health Concerns Section Related Observation LastModified by Organization Detai ls LastModified Time None Recorded Concern Status LastModified by Organization Details LastModified Time None Recorded Advance Directives Directive None Recorded Payers Insurance Date Sequence Insurance Name Policy Number Policy Farrell Covered Member ID Farrell Member ID Guarantor Name 10/15/2024 1 [place] [facility] Radha Fernandez [id number] Radha Fernandez Notes Date Note Type Note Provider Name and Address Organization Details Recorded Time 10/15/2024 text/html 53-year-old female with fibromyalgia, psychogenic nonepileptic seizures meningioma, depression [...] no clinical significance NEPTALI PENN MD [address] [place] [address], [place], [address], [facility] - [facility] 10/15/2024 10:11:20 OBGyn Episode No OBEpisode recorded.
--- OUTSIDE RECORDS SUMMARY | 2025-08-20 16:06 | XMS_ITS | Encounter Summary ---
Author Organization [employer] Address 75 [facility] 7t [place] [address] Care Team Providers Care Medical Billing Coder Name Role Phone Gabbie Cisneros MD Primary Care Provider [phone] Zac Hugo CNP Primary Care Provider [phone] Ariel Jose RN Unavailable [phone] Amada Walters Unavailable Reason for Visit * Reason Onset Date Comments ED F/U 07/27/2022 Encounter Details Date Type Department Care Team (Late st Contact Info) Description 07/27/2022 Telephone [facility] CHC MED & PEDS [address] [place], [place] [phone] Gabbie Cisneros MD 505 [place], [place] [phone] ED F/U Social History Tobacco Use Types [...] Pt agrees. * Telephone Encounter - Cynthia Bhatti - 07/27/2022 1:38 PM EST Margy, a nurse calling from [facility] to report ED visit on 07/26/22 at [facility]. Sandra states not knowing the reason of the ED visit. Sanrda was advised will forward to team nurse for follow up. Margy's contact number [phone]. Please contact pt for follow up at [phone] documented in this encounter Plan of Treatment Upcoming Encounters Date Type Department Care Team (Late st Contact Info) Description 09/26/2025 11:30 AM EST Office Visit [facility] OPTOMETRY [address] [place] [address] Tobias, Cristina, OD 230 [place] [address] 10/07/2025 10:30 AM EST Office Visit [facility] CHC MED & PEDS [address] [place] [address] Zac Hugo CNP 505 [place] [address] documented as of this encounter Visit Diagnoses Not on filedocumented in this encounter Care Teams Medical Billing Coder Relationship Specialty Start Date End Date Gabbie Cisneros MD 230 [place] [address] PCP - General Family Medicine 05/02/18 03/27/25 Zac Hugo CNP 230 [place] [address] PCP - General Family Medicine 03/28/25 Ariel Jose, RN [address] [place] [address] Registered Nurse Family Medicine 04/14/25 Amada Walters 04/14/25 Saloni Kaminski DetectiveDuct Layer Helper 05/19/23 Rosemarie Palmer [address] [place] [address] Nurse Practitioner Neurology 09/18/23 Milad Mcfarland DetectiveDuct Layer Helper 10/01/24 documented as of this encounter
--- OUTSIDE RECORDS SUMMARY | 2025-08-20 16:06 | XMS_ITS | Encounter Summary ---
Author Organization [employer] Address 75 [facility] 7t [place] [address] Care Team Providers Care Cordwood Cutter Name Role Phone Gbabie Cisneros MD Primary Care Provider [phone] Zac Hugo CNP Primary Care Provider [phone] Ariel Jose RN Unavailable [phone] Amada Walters Unavailable Encounter Details Date Type Department Care Team (Latest Contact Info) Description 08/19/2022 Orders Only [facility] MEDICINE 230 [place] [address] Rosalva Hidalgo MD 505 [place], [place] [phone] Hypercholesterolemia (Primary Dx) Social History Tobacco Use [...] Description 09/26/2025 11:30 AM EST Office Visit [facility] OPTOMETRY [address] [place] [address] Cristina Collado, OD 230 [place] [address] 10/07/2025 10:30 AM EST Office Visit [facility] CHC MED & PEDS 505 [place], [place] [phone] Zac Hugo CNP 505 [place] [address] documented as of this encounter Visit Diagnoses Diagnosis Hypercholesterolemia- Primary Pure hypercholesterolemia documented in this encounter Care Teams Cordwood Cutter Relationship Specialty Start Date End Date Gabbie Cisneros MD [address] [place] [address] PCP - General Family Medicine 05/02/18 03/27/25 Zac Hugo CNP 230 [place] [address] PCP - General Family Medicine 03/28/25 Ariel Jose RN 505 [place] [address] Registered Nurse Family Medicine 04/14/25 Amada Walters 04/14/25 Saloni Kaminski History Department ChairPi/Senior Research Associate 05/19/23 Rosemarie Palmer [address] [place] [address] Nurse Practitioner Neurology 09/18/23 Milad Mcfarland History Department ChairPi/Senior Research Associate 10/01/24 documented as of this encounter
--- OUTSIDE RECORDS SUMMARY | 2025-08-20 16:06 | XMS_ITS | Encounter Summary ---
Author Organization [employer] Address 75 [facility] [address] 7t [place] [address] Care Team Providers Care Construction Equipment Mechanic Name Role Phone Gabbie Cisneros MD Primary Care Provider [phone] Zac Hugo CNP Primary Care Provider [phone] Ariel Jose RN Unavailable [phone] Amada Walters Unavailable Reason for Visit * Reason Onset Date Comments Med Refill Appointment 2023 [facility] Encounter Details Date Type Department Care Team (Late st Contact Info) Description 2023 Refill [facility] MEDICINE [address] [place] [address] Andrew Lozano FNP Social History Tobacco Use [...] Description 09/26/2025 11:30 AM EST Office Visit [facility] OPTOMETRY [address] [place] [address] Tobias, Cristina, OD [address] [place] [address] 10/07/2025 10:30 AM EST Office Visit [facility] CHC MED & PEDS 505 [place] [address] Zac Hugo, LINUX SYSTEM ENGINEER 505 [place] [address] documented as of this encounter Goals Goal [...] documented as of this encounter Care Teams Construction Equipment Mechanic Relationship Specialty Start Date End Date Gabbie Cisneros MD 230 [place] [address] PCP - General Family Medicine 05/02/18 03/27/25 Zac Hugo CNP 230 [place] [address] PCP - General Family Medicine 03/28/25 Ariel Jose RN 505 [place] [address] Registered Nurse Family Medicine 04/14/25 Amada Walters 04/14/25 Saloni Kaminski Rn GastroenterologyRegulatory Submissions Associate 05/19/23 Rosemarie Palmer [address] [place] [address] Nurse Practitioner Neurology 09/18/23 Milad Mcfarland Rn GastroenterologyRegulatory Submissions Associate 10/01/24 documented as of this encounter
--- OUTSIDE RECORDS SUMMARY | 2025-08-20 16:07 | XMS_ITS | Clinical Summary ---
Author Organization [facility] Address [address] [address] Phone Care Team Providers Care Car Ferrier Name Role Phone Gabbie Cisneros MD Primary Care Provider [phone] Allergies Active Allergy Reactions Criticality Noted Date [...] ONE TABLET EVERY NIGHT AT BEDTIME Active uqgrttxegppv-Jx-w travis-minerals Tab TAKE ONE TABLET BY MOUTH AT NOON 3 Active GLUCOSE BLOOD test strip TEST BLOOD SUGAR TWICE DAILY 3 Active vit E-E-dzhuho-zinc-l utein 226-90-0.8-5 mg Cap Take 5 mg [...] Encounters Date Type Department Care Team Description 08/18/2025 10:15 AM EST Office Visit [facility] [address] [place] [address] Sunitha Cisneros MD Johndrow, Jennifer, PT Functional neurological symptom disorder with mixed symptoms (Primary Dx) 08/18/2025 Telephone [facility] Behavioral [facility]rology [facility] [address] [facility], 8th Floor, [address] [place] [address] Sunitha Cisneros MD 08/11/2025 Documentation [facility] Neurology and [facility] [address] [facility], 8th [facility], [address] [place] [address] Sunitha Cisneros MD 08/06/2025 11:00 AM EST Office Visit [facility] [address] [place] [address] Sunitha Cisneros MD Johndrow, Jennifer, PT Functional neurological symptom disorder with mixed symptoms (Primary Dx) 06/27/2025 Documentation [facility] Neurology [facility] [address] [facility], [address] [place] [address], [address] [place] [address] Sunitha Cisneros MD 05/21/2025 9:30 AM EDT Telemedicine [facility] Neurology [facility] [address] [facility], 8th [facility], [address] [place] [address] Sunitha Cisneros MD Moderate episode of recurrent major depressive disorder (Primary Dx); [place] (generalized anxiety disorder); PTSD (post-traumatic stress disorder); Functional neurological symptom disorder with mixed symptoms; Functional neurological symptom disorder with attacks or seizures from Last 3 Months Social History Tobacco [...] Visit [facility] 8 [place] [address] Sunitha Cisneros MD [address] [place] [phone] [email or web address] Joanne [place], PT 8 [place] [address] 09/02/2025 11:30 AM EST Office Visit [place] [facility] 8 [place] [address] Sunitha Cisneros MD [address] [place] [address] 110 [place] [phone] [email or web address] Joanne [place], PT 8 [place] [address] 09/11/2025 9:00 AM EST Telemedicine [facility] Behavioral [facility] [address] [facility], 8th Floor, [address] [place] [address] Jean Davila MD, PhD [address] [place] [address] [email or web address] 10/27/2025 3:30 PM EDT Telemedicine [facility] Behavioral [facility] [address] [facility], 8th Floor, [address] [place] [address] Sunitha Cisneros MD [address] [place] [address] 110 [place] [phone] [email or web address] Health Maintenance Due Date Last Done Comments [...] 03/26/2024 09/26/2023, 07/21, 02/07/2023, Additional history exists URINE MICROALBUMIN/CREATININE RATIO 10/15/2024 REPEAT PHQ 10/17/2024 09/16/2024, 09/16/2024 BLOOD PRESSURE 12/18/2024 06/19/2024 INFLUENZA VACCINE (#1) 2025 , 05/11/2022, 07/02/2021, Additional history exists COVID-19 VACCINE ( season) 2025 11/12/2021, 01/01/2021, 12/11/2020 DEPRESSION SCREENING 09/16/2025 09/16/2024, 09/16/19 DIABETIC EYE EXAM 06/10/2026 06/10/2025 PAP SMEAR 12/11/2026 12/12/2023, 04/09/2018 Adult Td,Tdap [...] topic Medical Devices Not on file Insurance [facility] A[employer] Advance Directives For more information, please contact: [phone] (9AM - 5PM [place], Monday-Monday) * Full Code (Latest Code Status on File) Date Activated Date Inactivated Comments 08/25/2023 2:13 PM Question Answer Comments Code Status Confirmed With: Patient Care Teams Car Ferrier Relationship Specialty Start Date End Date Gabbie Cisneros MD [address] [place] [address] PCP - General Family Medicine 04/14/23 Additional Source Comments The information contained in this document represents components of the legal health record. It is not the complete legal health record.[facility]
--- OUTSIDE RECORDS SUMMARY | 2025-08-20 16:07 | XMS_ITS | Encounter Summary ---
Author Organization [employer] Address 75 [facility] 7t [place] [address] Care Team Providers Care Screwmaker Automatic Name Role Phone Gabbie Cisneros MD Primary Care Provider [phone] Zac Hugo CNP Primary Care Provider [phone] Ariel Jose RN Unavailable [phone] Amada Walters Unavailable Reason for Visit * Reason Onset Date Comments Appointment Request 06/12/2024 Encounter Details Date Type Department Care Team ([facility] st Contact Info) Description 06/12/2024 Telephone [facility] CHC MED & PEDS [address] [place], [place] [phone] Gabbie Cisneros MD 505 [place], [place] [phone] Appointment Request Social History Tobacco Use Types [...] Description 09/26/2025 11:30 AM EST Office Visit [facility] OPTOMETRY [address] [place] [address] Cristina Collado, OD [address] [place] [address] 10/07/2025 10:30 AM EST Office Visit [facility] CHC MED & PEDS [address] [place] [address] Zac Hugo CNP 505 [place] [address] documented as of this encounter Goals Goal [...] documented as of this encounter Care Teams Screwmaker Automatic Relationship Specialty Start Date End Date Gabbie Cisnerso MD 230 [place] [address] PCP - General Family Medicine 05/02/18 03/27/25 Zac Hugo CNP 230 [place] [address] PCP - General Family Medicine 03/28/25 Ariel Jose RN [address] [place] [address] Registered Nurse Family Medicine 04/14/25 Amada Walters 04/14/25 Saloni Kaminski Central Office InstallerParcel Carrier 05/19/23 Rosemarie Palmer [address] [place] [address] Nurse Practitioner Neurology 09/18/23 Milad Mcfarland Central Office InstallerParcel Carrier 10/01/24 documented as of this encounter
--- OUTSIDE RECORDS SUMMARY | 2025-08-20 16:07 | XMS_ITS | Encounter Summary ---
Author Organization [email or web address] Address 75 [facility] 7t [place] [address] Care Team Providers Care Manager Business Operations Name Role Phone Gabbie Cisneros MD Primary Care Provider Zac Hugo CNP Primary Care Provider [phone] Ariel Jose RN Unavailable [phone] Amada Walters Unavailable Reason for Visit * Reason Comments Med Refill Encounter Details Date Type Department Care Team (Late Contact Info) Description 10/13/2022 Refill [facility] MEDICINE 230 [place], [place] [phone] Andrew Lozano FNP Severe recurrent major depression [...] Encounters Date Type Department Care Team (Late Contact Info) Description 09/26/2025 11:30 AM EST Office Visit [facility] OPTOMETRY 267 [place], [place] [phone] Cristina Collado, OD 230 [place] [address] 10/07/2025 10:30 AM EST Office Visit [facility] CHC MED & PEDS 505 [place], [place] [phone] Zac Hugo CNP 505 [place] [address] documented as of this encounter Visit Diagnoses Diagnosis 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) Major depressive disorder, recurrent episode, severe, specified as with psychotic behavior documented in this encounter Additional Health Concerns Assessment Noted Time PHQ-9 Depression Total Score: 15 023 9:30 AM EST documented as of this encounter Care Teams Manager Business Operations Relationship Specialty Start Date End Date Gabbie Cisneros MD 230 [place] [address] PCP - General Family Medicine 05/02/18 03/27/25 Zac Hugo CNP [address] [place] [address] PCP - General Family Medicine 03/28/25 Ariel Jose RN 505 [place] [address] Registered Nurse Family Medicine 04/14/25 Amada Walters 04/14/25 Saloni Kaminski Infection Control CoordinatorChicken And Fish Butcher 05/19/23 Rosemarie Palmer [address] [place] [address] Nurse Practitioner Neurology 09/18/23 Milad Mcfarland Infection Control CoordinatorChicken And Fish Butcher 10/01/24 documented as of this encounter
--- OUTSIDE RECORDS SUMMARY | 2025-08-20 16:07 | XMS_ITS | Encounter Summary ---
Author Organization [employer] Address [address] [facility] [address] 7t [place] [address] Care Team Providers Care Viticulturist Name Role Phone Gabbie Cisneros MD Primary Care Provider [phone] Zac Hugo CNP Primary Care Provider [phone] Ariel Jose RN Unavailable [phone] Amada Walters Unavailable Reason for Visit * Reason Onset Date Comments Call Back Request 12/21/2023 Encounter Details Date Type Department Care Team (Late st Contact Info) Description 12/21/2023 Telephone [facility] MEDICINE 230 [place] [address] Gabbie Cisneros MD [address] [place], [place] [phone] Call Back Request Social History Tobacco Use [...] and was told to call [facility] back narrative writer does not see anything noted on the patients chart documented in this encounter Plan of Treatment Upcoming Encounters Date Type Department Care Team (Late st Contact Info) Description 09/26/2025 11:30 AM EST Office Visit [facility] OPTOMETRY [address] [place], [place] [phone] Cristina Collado, OD 230 [place] [address] 10/07/2025 10:30 AM EST Office Visit [facility] CHC MED & PEDS 505 [place] [address] Zac Hguo CNP 505 [place] [address] documented as of this encounter Goals Goal [...] documented as of this encounter Care Teams Viticulturist Relationship Specialty Start Date End Date Gabbie Cisneros MD 230 [place] [address] PCP - General Family Medicine 05/02/18 03/27/25 Zac Hugo CNP 230 [place] [address] PCP - General Family Medicine 03/28/25 Ariel Jose, ZULEYKA 505 [place] [address] Registered Nurse Family Medicine 04/14/25 Amada Walters 04/14/25 Saloni Kaminski Wet Suit GluerContact Center Consultant 05/19/23 Rosemarie Palmer [address] [place] [address] Nurse Practitioner Neurology 09/18/23 Milad Mcfarland Wet Suit GluerContact Center Consultant 2/11/25 documented as of this encounter
--- OUTSIDE RECORDS SUMMARY | 2025-08-20 16:07 | XMS_ITS | Clinical Summary ---
Author Organization [employer] Address [address] [facility] [address] [place] [address] Care Team Providers Care Family Service Aide Name Role Phone Zac Hugo CNP Primary Care Provider [phone] Ariel Jose RN Unavailable Amada Walters Unavailable Allergies Active Allergy Reactions Criticality Noted Date Comments Avocado Shortness of breath High 10/07/2022 Banana Shortness of breath High 09/25/2022 Cat Dander Hives 10/07/2022 Chicken Allergy Unknown 07/26/2022 Citrullus Vulgaris Shortness of breath High 07/30/20 22 Dust Mite Extract Runny nose 10/07/2022 Gadolinium Hives High 02/18/2015 Other reaction(s): facial swelling, itchiness, hive Other reaction(s): facial swelling, itchiness, hive Iodinated Contrast Media Hives 07/26/2022 Levetiracetam Mental status change 12/19/2023 Other Reaction(s): Depression Morphine And Codeine Shortness of breath,Palpitations High 01/22/2024 Peanut-Containing Drug Products Anaphylaxis High 10/26/2017 Shellfish Allergy Anaphylaxis High 10/26/2017 [place]ston Extract 03/24/2024 Medications * This document contains information received from the source organization and may not represent a complete record from that organization. beta carotene (vitamin A) 3 MG (48473 UT) capsule Take 1 capsule by mouth at bed time. Active montelukast (Singulair) 10 MG tablet Take 1 tablet by mouth. Active cabergoline (Dostinex) 0.5 MG tablet take 2 tablets by oral route 2 times every week Active albuterol (ProAir HFA) 108 (90 Base) MCG/ACT inhalerIndication s:Mild asthma without complication, unspecified whether persistent Inhale 2 puffs every 4 (four) hours if needed for wheezing. 18 g 2 08/23/19 23 Active Advair HFA 230-21 MCG/ACT inhaler Inhale 2 puffs 2 times daily. . 09/26/19 23 Active ibuprofen 800 MG tablet TAKE 1 TABLET BY MOUTH NEEDED FOR MILD PAIN IN THE MORNING, NOON AND AT BEDTIME 30 tablet 07/23/20 24 Active Calcium + Vitamin D3 600-10 MG-MCG tabletIndications :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) ([facility]) TAKE ONE TABLET TWICE DAILY AT NOON AND IN THE EVENING 60 tablet 11 09/10/19 25 Active Ferrous Sulfate (iron) 325 (65 Fe) MG tabletIndications :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) ([facility]) TAKE ONE TABLET DAILY AT NOON 30 tablet 11 09/10/19 25 Active Multiple Vitamin (Multivitamin) tabletIndications :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) ([facility]) TAKE ONE TABLET DAILY AT NOON 30 tablet 11 09/10/19 25 Active atorvastatin (Lipitor) 10 MG tabletIndications :Hypercholesterol emia TAKE ONE TABLET EVERY NIGHT AT BEDTIME 30 tablet 5 8:51 AM EST 10/18/19 25 Active minoxidil (Loniten) 2.5 MG tabletIndications :Androgenetic alopecia TAKE ONE TABLET EVERY MORNING 30 tablet 11 5 8:51 AM EST 10/18/19 25 Active albuterol (2.5 MG/3ML) 0.083% nebulizer solutionIndicatio ns:Unspecified asthma with (acute) exacerbation INHALE ONE AMPULE USING A NEBULIZER EVERY SIX HOURS 90 mL 3 10/24/19 25 Active esomeprazole (NexIUM) [address] capsule TAKE ONE CAPSULE EVERY MORNING ONE HOUR BEFORE BREAKFAST. DO NOT BREAK, CRUSH, DISSOLVE OR CHEW 90 capsule 3 01/18/20 25 Active Easy Touch Lancets 33G/Twist miscIndications:P rolactinoma (CMS/HCC) ([facility]) TEST BLOOD SUGAR TWICE DAILY 100 each 11 5 8:51 AM EST 01/22/20 25 Active FREESTYLE LITE test stripIndications: Type 2 diabetes mellitus without complication, without long-term current use of insulin ([facility]) TEST BLOOD SUGAR TWICE DAILY 50 strip 11 01/22/20 25 Active riboflavin (vitamin B2) 100 mg [...] daily. 180 capsule 3 03/03/20 25 Active haloperidol (Haldol) 5 [...] cholecalciferol VITAMIN D (Vitamin D-3) 50 MCG (1999 UT) capsule TAKE THREE CAPSULES DAILY AT NOON 270 capsule 2 04/11/20 25 Active sertraline (Zoloft) 100 MG tabletIndications :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) ([facility]) TAKE 1 TABLET BY MOUTH EVERY MORNING 90 tablet 04/11/20 25 Active cetirizine (ZyrTEC) 10 MG tablet TAKE 1 TABLET BY MOUTH EVERY DAY 90 tablet 1 04/29/20 25 Active ondansetron ODT (Zofran-ODT) 4 MG disintegrating tabletIndications :Chronic obstructive pulmonary disease, unspecified COPD type (CMS/HCC) ([facility]) DISSOLVE ONE TABLET UNDER THE TONGUE EVERY 8 HOURS NEEDED 30 tablet 3 5 3:59 PM EST 05/20/20 25 Active hydrOXYzine HCl (Atarax) 25 MG tabletIndications :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) ([facility]) TAKE ONE TABLET EVERY NIGHT AT BEDTIME 90 tablet 1 06/10/20 Active amitriptyline (Elavil) 10 MG tablet Take 10-20 mg by mouth at bedtime. Active celecoxib (CeleBREX) 200 MG capsule Take 200 mg by mouth 2 times daily. Active diazePAM (Valium) 5 MG tablet TAKE 1 TABLET BY MOUTH 1 HOUR BEFORE PROCEDURE. MAY REPEAT 1 TIME UPON ARRIVAL FOR ANXIETY NEEDED 06/03/20 Active topiramate 50 MG tablet Take 1 tablet by mouth at bedtime. 04/28/20 25 Active buPROPion XL (Wellbutrin XL) 300 MG 24 hr tablet 04/28/20 Active verapamil ER (Verelan) 120 MG 24 hr capsule take 1 capsule by mouth daily at bedtime 04/30/20 Active fluocinolone ([place]-Smoothe) 0.01 % external oilIndications:Be nign neoplasm of pituitary gland (CMS/HCC) ([facility]) APPLY TO THE AFFECTED AREA(S) THREE TIMES DAILY 118.28 mL 3 08/19/20 25 Active gabapentin (Neurontin) 300 MG capsuleIndication s:Vasomotor symptoms due to menopause Take 1 capsule (300 mg) by mouth at bedtime. 30 capsule 11 08/20/20 25 2025 Active triamcinolone (Kenalog) 0.1 % creamIndications: Eczema, unspecified type APPLY A THIN LAYER TO THE AFFECTED AREA(s) ONCE DAILY 80 g 3 08/20/20 25 Active terbinafine (LamISIL) 250 MG tabletIndications :Onychomycosis Take 1 tablet (250 mg) by mouth Once per day for 14 days. 14 tablet 08/20/20 25 2025 Active fluocinolone ([place]-Smoothe) 0.01 % external oilIndications:Be nign neoplasm of pituitary gland (CMS/HCC) ([facility]) APPLY TO THE AFFECTED AREA(S) THREE TIMES DAILY 118.28 mL 3 04/11/20 25 2024 Discontinued triamcinolone (Kenalog) 0.1 % creamIndications: Eczema, unspecified type APPLY A THIN LAYER TO THE AFFECTED AREA(s) ONCE DAILY 80 g 3 5 8:51 AM EST 04/11/20 25 2024 Discontinued triamcinolone (Kenalog) 0.1 % creamIndications: Eczema, unspecified type APPLY A THIN LAYER TO THE AFFECTED AREA(s) ONCE DAILY 80 g 3 08/19/20 25 2024 Discontinued(R eorder (will not trigger notification to Pharmacy)) Active Problems Problem Noted Date Diagnosed Date Sickle cell trait 10/15/2024 Seizure ([facility]) 10/15/2024 Bilateral tinnitus 10/15/2024 Dermal mycosis 10/15/2024 Psychogenic nonepileptic seizure 09/18/2023 Assessment & Plan (09/18/2023 1:30 PM EST): Patient reports having a Neurologist, and states having an appointment scheduled for next month. Will follow up with PCP. Apical lung scarring 09/18/2023 Assessment & Plan (09/18/2023 1:29 PM EST): Patient that presented visit with concerns of apical lung scarring will be referred to Pulmonology. Meningioma ([facility]) 09/18/2023 Assessment & Plan (09/18/2023 1:30 PM EST): Patient with Hx of meningioma will be sent for imaging for further evaluation. -Chest CT Vitamin D deficiency 10/07/2022 Hypothyroidism 10/07/2022 Assessment & Plan (08/20/2025 3:38 PM EST): Hypertension 10/07/2022 Assessment & Plan (08/20/2025 3:38 PM EST): Fibromyalgia 10/07/2022 Hyperparathyroidism 10/07/2022 Assessment & Plan (08/20/2025 3:38 PM EST): Depression with anxiety 10/07/2022 Asthma 10/07/2022 Anemia 10/07/2022 Assessment & Plan (08/20/2025 3:38 PM EST): Orders: Vitamin B12/Folate, Serum Panel; Future Pituitary neoplasm 09/25/2022 Parathyroid adenoma 09/25/2022 Severe recurrent major depre ssion with psychotic features ([facility]) 07/27/2022 Assessment & Plan (01/30/2024 11:06 AM EDT): Plus OCD with irritability when things re dirty or out of place. Although she has an extensive trauma history since childhood, does not appear to have flashbacks or hypervigilance associated with PTSD. Recently diagnosed with Psychogenic Seizures and will be under care of Psychiatrist in [place]. Mood is depressed, and pt requests resumption [...] She will F/U with new providers in [place]. For any issues or concerns, contact [facility]. All her questions were answered and [...] Encouraged to go personally as planned to [facility] agency as a walk-in for [...] Do Follow up for counseling, go to [facility] and/or call for appointment. May also [...] 1 month. She agrees with the plan. Abnormal auditory perception 07/03/2020 Overview (08/18/2025): Other abnormal auditory perceptions, bilateral; Note: Date Diagnosed: 07/03/2020 10:38 AM (H93.293) Dysphonia 06/03/2020 Overview (08/18/2025): Hoarseness; Note: Date Diagnosed: 06/03/2020 9:46 AM (R49.0) Migraine with aura 03/12/2019 Prolactinoma ([facility]/HCC) 03/21/2016 Plantar fasciitis 10/31/2013 Diabetes mellitus type 2, uncomplicated 01/18/20 12 Overview (01/23/2024): Lab Results Component Value Date HGBA1C 5.1 08/07/2023 Assessment & Plan (08/20/2025 3:38 PM EST): Orders: HIV-1/2 Antigen and Antibodies, Fourth Generation, with Reflexes; Future Hepatitis C Antibody with Reflex to HCV, RNA, Quantitative, Real-Time PCR; Future CBC auto differential; Future Comprehensive Metabolic Panel; Future Lipid Panel, Standard; Future TSH W/Reflex to FT4; Future POCT A1c POCT glucose manually resulted (CPT-21050) Vitamin D, 25-Hydroxy, Total, Immunoassay; Future Resolved Problems Problem Noted Date Diagnosed Date Resolved Date Type 2 diabetes mellitus wit hout complications 08/18/2025 08/20/2025 Myalgia of pelvic floor 02/25/202507/23 Fatigue 10/15/2024 08/20/2025 Nocturia 10/15/2024 08/20/2025 Unsteady gait when walking 10/15/2024 1 Chronic back pain 10/15/2024 08/20/2025 Headache 10/15/2024 08/20/2025 Hip pain 10/09/2024 08/20/2025 Lumbar radiculopathy 09/23/2024 025 Controlled diabetes mellitus type II without complication 06/07/2024 08/20/2025 Class 1 obesity due to exces s calories with serious comorbidity and body mass index (BMI) of 33.0 to 33.9 in adult 06/07/2024 08/20/2025 Attention and concentration deficit 10/02/2023 08/20/2025 Assessment & Plan (01/30/2024 11:02 AM EDT): Continue Strattera 25 mg BID. Assessment & Plan (10/30/2023 10:18 AM EDT): Difficulty concentrating, inability to read books or the bible or attend jew is very distressing to her. Reports lifetime [...] read books or the bible or attend jew is very distressing to her. Reports lifetime [...] 4 weeks. She agrees with the plan. Seizure-like activity (CMS/HCC) 08/24/2023 08/20/2025 Hypocalcemia 10/07/2022 08/20/2025 Galactorrhea 10/07/2022 08/20/2025 Seizure (CMS/HCC) 09/25/2022 10/04/2022 Influenza-like symptoms 07/26/2022 01/0 10/2022 Acute pain of left knee 07/26/202201/20 Arthritis of lumbar spine 01/14/2021 Arthritis of left knee 01/14/202108/20 Dizziness and giddiness 07/03/202007/23 Overview (08/18/2025): Dizziness and giddiness; Note: Date Diagnosed: 07/03/2020 10:38 AM (R42) Joint pain 10/31/2013 08/20/2025 Fibromyositis 10/31/2013 08/20/2025 Encounters Date Type Department Care Team Description 08/20/2025 2:45 PM EST Office Visit [facility] MED [facility] PED[facility] [address] [place] [address] Zac Hugo, MISHA Type 2 diabetes mellitus without complication, without long-term current use of insulin (HCC) (Primary Dx); Primary hypertension; Hypothyroidism, unspecified type; Hyperparathyroidism (CMS/HCC); Anemia, unspecified type; Screening mammogram for breast cancer; Encounter for screening for malignant neoplasm of colon; Eczema, unspecified type; Onychomycosis; Vaginal odor; Anxiety and depression; Encounter for physical examination; Vasomotor symptoms due to menopause; Mixed incontinence; Encounter for immunization 08/20/2025 Travel 08/20/2025 Refill [facility] [address] [place] [address] Gabbie Cisneros MD Vertigo 08/20/2025 Patient Outreach [facility] MEDICINE [address] [place] [phone] Zac Hugo CNP Care Coordination (CM/CHW outreach) 08/18/2025 Telephone [facility] [address] [place] [address] Zac Hugo CNP chart prep 08/16/2025 Refill [facility] [address] [place] [address] Name, MD Abhishek Eczema, unspecified type; Benign neoplasm of pituitary gland (CMS/HCC) (HCC) 06/18/2025 3:30 PM EDT Office Visit [facility] [address] [place] [address] Zac Hugo CNP Acute bacterial sinusitis (Primary Dx) 06/18/2025 Travel 06/18/2025 Telephone [facility] [address] [place] [address] Zac Hugo CNP Nurse Triage 06/11/2025 Telephone [facility] [address] [place] [address] Zac Hugo CNP Prior Authorization 06/10/2025 10:20 AM EDT Office Visit [facility] OPTOM[facility] [address] [place] [address] Tobias, Cristina, OD Diabetes type 2, no ocular involvement (HCC) (Primary Dx); 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 Travel 06/10/2025 Orders Only [facility] [address] [place] [address] Hugo, Alexxis, TOOL SMITH Functional neurological symptom disorder with mixed symptoms (Primary Dx) 06/10/2025 Refill [facility] PEDS [address] [place] [address] Gabbie Cisneros MD 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) 06/09/2025 Telephone [facility] [address] [place] [address] Zac Hugo CNP Referral 06/03/2025 Telephone [facility] [address] [place] [address] Gabbie Cisneros MD 05/29/2025 Travel 05/28/2025 Patient Outreach [facility] [address], [place] [phone] Zac Hugo CNP Pre-visit Planning ([facility] screening completed on 09/26/24 ) from Last 3 Months Immunizations Immunization Administration Dates Next Due Hep B, adult 04/15/2014,12/18/2013,11/14/2013 Influenza injectable quadriv alent IIV4 with preservative 04/02/2015 Influenza injectable quadriv alent preservative free 08/04/2023,05/11/2022,07/02/2021,07/09,06/25/2019,04/16/2018 Influenza, IIV3, injectable 05/30/2014, 1,05/11/2009 Influenza, Injectable, MDCK, preservative free 09/26/2013 Influenza, seasonal, injecta ble, preservative free 08/20/2025 Pfizer Covid-19 Vaccine 12+ 11/12/2021, 1,12/11/2020 Pfizer Covid-19 Vaccine 12+ adelina-sucrose (Garcia Cap) 11/12/2021 Pneumococcal Conjugate PCV 20 08/20/2025 Pneumococcal Polysaccharide PPSV23 04/16,02/05/2018,03/12/2013,01/27 Tdap 04/16/2018,03/12/2013 Zoster, [...] Mass Index 30.11 08/20/2025 2:45 PM EST Plan of Treatment Upcoming Encounters Date Type Department Care Team (Late st Contact Info) Description 09/26/2025 11:30 AM EST Office Visit [facility] OPTOMETRY [address] [place] [address] Cristina Collado, OD [address] [place] [address] 10/07/2025 10:30 AM EST Office Visit [facility]ED[facility] [address] [place], [place] [phone] Zac Hugo, TOOL SMITH [address] [place], [place] [phone] Health Maintenance Due Date Last Done Comments CT Colonography 1970 Colonoscopy 1969 Colorectal Cancer Screening 1970 FIT DNA/Cologuard 1969 FIT 1970 FOBT 1970 HIV Screening 1970 Sigmoidoscopy 1970 Diabetes: Foot Exam 12/10/1979 Eye Exam 12/10/1979 Hepatitis C Screening 12/10/1987 Diabetes: Urine Protein Screening 1988 RSV Patients and Patients Aged 60 years or older (1 - Risk 50-74 years 1-dose series) 12/10/2019 Depression Monitoring 07/31/2024 01/30/2024, 024 Lipid Panel 08/07/2024 08/07/2023, 0411/2021, 05/12/2021, Additional history exists Mammogram 07/05/2025 07/05/2024, 02/15/2022 SDOH Screening 09/26/2025 09/26/2024 Diabetes: Hemoglobin A1C 02/17/2026 025, 09/26/2023, 08/07/2023, Additional history exists Tobacco Screening 06/26/2026 06/26/2025 Alcohol/Substance Use Screening 08/20/2026 08/20/2025 COVID-19 Vaccine ( season) 2026 11/12/2021, 11/12/2021, 01/01/2021, Additional history exists Postponed from 04/21/2025 (Patient Refused) Disability Screening 08/20/2026 08/20/2025 DTaP/Tdap/Td Vaccines (3 - Td or Tdap) 04/16/2028 04/16/2018, 03/12/2013 Cervical Cancer Screening 12/11/2028 HPV/Cotest 12/11/2028 12/12/2023 Pap Smear 12/11/2028 12/12/2023, 01/19/2012 Hepatitis B Vaccines Completed 04/15/2014, 12/18/2013, 11/14/2013 Zoster Vaccines Completed 09/10/2020, 07/09/2020 Influenza Vaccine Completed 08/20/2025, , 05/11/2022, Additional history exists Pneumococcal Vaccine: 50+ Years Completed 08/20/2025, 04/16/2018, 02/05/2018, Additional history exists HIB Vaccines Aged Out No longer eligi [...] Name Priority Date/Time Associated Diagnosis Comments POCT GLUCOSE (CPT-59168) Routine 08/20/2025 2:54 PM EST Type 2 diabetes mellitus without complication, without long-term current use of insulin (HCC) POCT GLYCATED HEMOGLOBIN, TOTAL Routine 08/20/2025 2:54 PM EST Type 2 diabetes mellitus without complication, without long-term current use of insulin ([facility]) POCT RAPID COVID ANTIGEN Routine 06/19/2025 10:51 AM EDT Acute bacterial sinusitis POCT INFLUENZA B (ID NOW RAPID MOLECULAR) Routine 06/19/2025 10:50 AM EDT Acute bacterial sinusitis POCT INFLUENZA A (ID NOW RAPID MOLECULAR) Routine 06/19/2025 10:47 AM EDT Acute bacterial sinusitis FUNDUS PHOTOS - OU - BOTH EYES Routine 06/10/2025 10:20 AM EDT Diabetes type 2, no ocular involvement ([facility]) HM MAMMOGRAPHY Routine 07/05/2024 9:46 AM EST HPV MRNA E6/E7 REFLEX TO HPV 16, 18/45 Routine 12/12/2023 10:19 AM EDT PAP SMEAR Routine 12/12/2023 10:19 AM EDT Cervical cancer screening LIPID PANEL, STANDARD Routine 08/07/2023 10:53 AM EST Type 2 diabetes mellitus without complication, without long-term current use of insulin ([facility]) from Last 3 Months or Most Recently Relevant to Health Maintenance Results * POCT A1c (08/20/2025 2:54 PM EST) Hemoglobin A1C 5.0 4.0 - 5.7 % QC Media Lot # Comment:[id number] Lot# Expiration Date Comment:07/25/2027 Blood 08/20/2025 2:54 PM EST [facility] POINT OF CARE TEST ENTER/ EDIT ORDERABLES Final Result * POCT glucose manually resulted (CPT-81150) (08/20/2025 2:54 PM EST) Pathologist [facility] Glucose Blood, POC 83 60 - 200 mg/dL QC Media Lot # Comment:[id number] Lot# Expiration Date Comment:11/25/2025 Blood Capillary blood specimen / Unknown 08/20/2025 2:54 PM EST Result [facility] POINT OF CARE TEST ENTER/ EDIT ORDERABLES Final Result * POCT Rapid COVID Ag (06/19/2025 10:51 AM EDT) Pathologist [facility] Rapid COVID Ag Negative QC Media Lot # Comment:[id number] Lot# Expiration Date Comment:03/14/2026 Swab 06/19/2025 10:5 1 AM EDT Result [facility] POINT OF CARE TEST ENTER/ EDIT ORDERABLES Final Result * Influenza B (ID NOW Rapid Molecular) (06/19/2025 10:50 AM EDT) Pathologist [facility] Influenza B Negative Negative, Indeterminate [facility] QC Media Lot # [facility] Comment:[id number] Lot# Expiration Date [facility] Comment:06/20/2025 Swab 06/19/2025 10:5 0 AM EDT Result [facility] POINT OF CARE TEST ENTER/ EDIT ORDERABLES Final Result [facility] [address] [place] [phone] * Influenza A (ID NOW Rapid Molecular) (06/19/2025 10:47 AM EDT) Pathologist [facility] Influenza A Negative Negative, Indeterminate [facility] QC Media Lot # [facility] Comment:[id number] Lot# Expiration Date [facility] Comment:06/20/2025 Swab 06/19/2025 10:4 7 AM EDT Zac Hugo [facility] POINT OF CARE TEST ENTER/ EDIT ORDERABLES Edited Result - Final [facility] [address] [place] [address] [phone] * Fundus Photos - OU - Both Eyes (06/10/2025 10:20 AM EDT) Narrative Cristina Collado, OD - 06/27/2025 9:52 AM EST Images from the original result were not included. Right Eye Progression has no prior data. Disc findings include normal observations (c/d: 0.45/0.45, No NVD). Macula findings include normal observations (No CSME). Vessel findings include normal observations. Periphery findings include normal observations (No NVE). Left Eye Progression has no prior data. Disc findings include (c/d: 0.4/0.4, Possible hemorrhage centrally, no NVD). Macula findings include normal observations (No CSME). Vessel findings include normal observations. Periphery findings include normal observations (No NVE). Notes Assessment and Plan: There is no diabetic retinopathy noted in either eye to the extent seen in today's photos. There is no suspicion for macular edema in either eye. There is concern for a possible optic nerve hemorrhage in the left eye. Will have the patient return to reassess. Result [facility] Cristina Collado OD OPHTH PHOTOGRAPHY Final Resul t * Hm Mammography (07/05/2024 9:46 AM EST) Anatomical Region Laterality Modality Other Historical Provider HEALTH MAINTENANCE Final Result * HPV mRNA E6/E7 w/Reflex to HPV Genotypes 16, 18/45 (12/12/2023 10:19 AM EDT) HPV nRNA E6/E7 Not Detected Not Detected [facility] Comment:Methodology: Transcr iption-Mediated AmplificationThis assay detects E6/E7 viral messenger RNA (mRNA) from 14high-risk HPV types (16,18,31,33,35,39,45,51,52,56,58,59,66,68).Cervical sources are required for HPV testing.If a vaginal source from a patient who has had atotal hysterectomy with removal of cervix wassubmitted, please contact the testing laboratoryfor alternative testing options.For additional information, please refer [email or web address](This link if provided for information/educational purposes only.)THIS TEST WAS PERFORMED AT:[facility] [place] [phone] SHEPPARD MD HPV mRNA E6/E7 [facility] HPV 16 RNA [facility] HPV 18/45 RNA [facility] 12/12/2023 10:1 9 AM EDT 12/13/2023 1:00 PM EDT Ti Castillo CNM LAB CYTOLOGY ORDERABLES F inal Result Performing Organization Address City/State/[facility] Co de Phone Number [facility] [address] [place] [phone] * Pap Smear (12/12/2023 10:19 AM EDT) Swab Cervix uteri structure / Unknown 12/12/2023 10:19 AM EDT 12/13/2023 1:00 PM EDT Narrative [facility] - 01/01/2024 11:53 AM EDT ----- ------- Name: Radha Fernandez Age/Sex: 53/F : 1970 Unit#: [id number] Attend Dr: TI CASTILLO CNM Re12/15/23 Status: DEP REF Location: [facility] Disch: ----- ------- SPEC : [id number] RECD: 12/13/23 STATUS: YARELI TARIQ NUM: [id number] STEPH: 12/12/23-[address]: TI CASTILLO [facility] ENTERED: 12/13/232439 SP TYPE: Pap Smr OTHR DR: ORDERED: [...] 59, 66, 68) HPV testing performed by [facility], [place], [place]. See reference laboratory portion of the EMR for entire report. Clinical Information LMP: Postmenopausal Previous PAP test: 2018, Unknown findings Material Received ThinPrep-Cervical ----- ------- Signed (signature on file) REGINA Mcnamara (ASC) 01/01/24 1153 ----- ------- END OF REPORT Ti Castillo CNM LAB CYTOLOGY ORDERABLES F inal Result Performing Organization Address City/[facility] [address]/ZIP Co de Phone Number [facility] [address] [place] [address] [phone] * Lipid Panel, Standard (08/07/2023 10:53 AM EST) Triglycerides 75 <150 mg/dL [facility] Comment:Desirable Triglyceri de: less than 150 mg/dLBorderline High Triglyceride 150-199 mg/dLHigh Triglyceride: 200-499 mg/dLVery High Triglyceride: greater than or equal to 5OO mg/dL Cholesterol 174 <200 mg/dL [facility] [facility] Comment:Desirable Cholestero l: less than 200 mg/dLBorderline High Cholesterol: 200-239 mg/dLHigh Cholesterol: greater than 239 mg/dL LDL Cholesterol Calculated 98 <100 mg/dL [facility] Comment:Desirable LDL: less than 100 mg/dLNear Optimal/Above Optimal LDL: 110- 129 mg/dLBorderline High LDL: 130-159 mg/dLHigh LDL: 160-189 mg/dLVery High LDL: greater than or equal to 190 mg/dL HDL Cholesterol 61 >40 mg/dL [facility] Comment:Desirable HDL: great er than 40 mg/dL Note: This HDL assay may give artificially low results in patients with liver disease. Blood Venous blood specimen / Unknown 08/07/2023 10:53 AM EST 08/07/2023 2:05 PM EST Gabbie Cisneros MD LAB BLOOD ORDERABLES Final Resul t Performing Organization Address City/[facility] [address]/ZIP Co de Phone Number [facility] [address] [place] [address] [phone] from Last 3 Months or Most Recently Relevant to Health Maintenance Insurance [facility] C3 Care Teams Family Service Aide Relationship Specialty Start Date End Date Zac Hugo CNP PCP - General Family Medicine 03/28/25 Ariel Jose, ZULEYKA [address] [place] [address] Registered Nurse Family Medicine 04/14/25 Amada Walters 04/14/25 Saloni Kaminski Clinical PhlebotomistCraft Demonstrator 05/19/23 Rosemarie Palmer [address] [place] [address] Nurse Practitioner Neurology 09/18/23 Milad Mcfarland Clinical PhlebotomistCraft Demonstrator 10/01/24
--- OUTSIDE RECORDS SUMMARY | 2025-08-20 16:07 | XMS_ITS | Encounter Summary ---
Author Organization [employer] Address 75 [facility] 7t [place] [address] Care Team Providers Care Anatomy And Physiology Instructor Name Role Phone Gabbie Cisneros MD Primary Care Provider [phone] Zac Hugo CNP Primary Care Provider [phone] Ariel Jose RN Unavailable [phone] Amada Walters Unavailable Reason for Visit * Reason Comments Med Refill Encounter Details Date Type Department Care Team ([facility] st Contact Info) Description 02/09/2024 Refill [facility] CHC MED & PEDS [address] [place], [place] [phone] Rosalva Hidalgo MD 505 [place], [place] [phone] Lichen sclerosus Social History Tobacco Use Types [...] Description 09/26/2025 11:30 AM EST Office Visit [facility] OPTOMETRY [address] [place] [address] Tobias, Cristina, OD [address] [place] [address] 10/07/2025 10:30 AM EST Office Visit [facility] CHC MED & PEDS [address] [place] [address] Zac Hugo, MISHA [address] [place] [address] documented as of this encounter Goals Goal Patient Goal Type Associated Problems Recent Progress Patient-Stated? Author Patient will adhere to medication regimen General No Ramirezlogevelyn, Jerry, PharmD Help patient manage asthma General No Jerry Shelby, PharmD Note: Reduce use of LUANNE to 2x/week documented as of this encounter Visit Diagnoses Diagnosis Lichen sclerosus Circumscribed scleroderma documented in this encounter Additional Health Concerns Assessment Noted Time PHQ-9 Depression Total Score: 10 024 9:42 AM EDT documented as of this encounter Care Teams Anatomy And Physiology Instructor Relationship Specialty Start Date End Date Gabbie Cisneros MD [address] [place] [address] PCP - General Family Medicine 05/02/18 03/27/25 Zac Hugo CNP [address] [place] [address] PCP - General Family Medicine 03/28/25 Ariel Jose, ZULEYKA [address] [place] [address] Registered Nurse Family Medicine 04/14/25 Amada Walters 04/14/25 Saloni Kaminski Nuclear Radiation EngineerPre Planning Advisor 05/19/23 Rosemarie Palmer [address] [place] [address] Nurse Practitioner Neurology 09/18/23 Milad Mcfarland Nuclear Radiation EngineerPre Planning Advisor 10/01/24 documented as of this encounter
--- OUTSIDE RECORDS SUMMARY | 2025-08-20 16:07 | XMS_ITS | Encounter Summary ---
Author Organization [employer] Address [address] [facility] [address] 7t [place] [address] Care Team Providers Care Market Intelligence Consultant Name Role Phone Gabbie Cisneros MD Primary Care Provider [phone] Zac Hugo CNP Primary Care Provider [phone] Ariel Jose RN Unavailable [phone] Amada Walters Unavailable Encounter Details Date Type Department Care Team (Late st Contact Info) Description 07/08/2024 Orders Only [facility] CHC MED & PEDS [address] [place], [place] [phone] Provider, MD Marina Social History Tobacco Use [...] Description 09/26/2025 11:30 AM EST Office Visit [facility] OPTOMETRY [address] [place] [address] TobiasBertramn, OD [address] [place] [address] 10/07/2025 10:30 AM EST Office Visit [facility] CHC MED & PEDS [address] [place] [address] Zac Hugo, MANAGER OF COMMUNITY RELATIONS [address] [place], [place] [phone] documented as of this encounter Goals Goal [...] AM EST Narrative 09/04/2024 11:29 AM EST [address] [address] [address] Scan Report Signed Patient: Radha Fernandez MR#: [id number] : 1970 Acct:[id number] Age/Sex: 53 / F ADM Date: 07/29/24 Loc: HO.CT Attending Dr: Betzaida Solis MD Ordering Physician: Betzaida Solis MD Date of Service: 07/29/24 Procedure(s): CT sinus wo IV con Accession Number(s): [id number] cc: Betzaida Solis MD; Gabbie Cisneros MD Report Number: [id number]: Total DLP = 99.00 mGy-cm EXAMINATION: CT [...] 09/04/24 1126 DD/ 0758 TD/TT: 07/29/24 0802 Director Dermatology: MANNY Procedure Note Donotuseinterpreter, Image - 09/04/[address] [place] [address] [address] Scan Report Signed Patient: Darron Fernandez#: [id number] : 1970Acct:[id number] Age/Sex: 53 / FADM Date: 07/29/24 Loc: HO.CT Attending Dr: Betzaida Solis MD Ordering Physician: Betzaida Solis MD Date of Service: 07/29/24 Procedure(s): CT sinus wo IV con Accession Number(s): [id number] cc: Betzaida Solis MD; Gabbie Cisneros MD Report Number: [id number]: Total DLP = 99.00 mGy-cm EXAMINATION: CT [...] 09/04/24 1126 DD/ 0758 TD/TT: 07/29/24 0802 Director Dermatology: MANNY [facility] External Provider IMG CT PROCEDURES Final Result * Hm Mammography (07/05/2024 9:46 AM EST) Anatomical Region Laterality Modality Other Historical Provider HEALTH MAINTENANCE Final Result documented in this encounter Visit Diagnoses Not on filedocumented in this encounter Additional Health Concerns Assessment Noted Time PHQ-9 Depression Total Score: 10 024 9:42 AM EDT documented as of this encounter Care Teams Market Intelligence Consultant Relationship Specialty Start Date End Date Gabbie Cisneros MD [address] [place] [address] PCP - General Family Medicine 05/02/18 03/27/25 Zac Hugo CNP [address] [place] [address] PCP - General Family Medicine 03/28/25 Ariel Jose, RN [address] [place] [address] Registered Nurse Family Medicine 04/14/25 Amada Walters 04/14/25 Saloni Kaminski Sales ArchitectTrade Marker 05/19/23 Rosemarie Palmer [address] [place] [address] Nurse Practitioner Neurology 09/18/23 Milad Mcfarland Sales ArchitectTrade Marker 10/01/24 documented as of this encounter
--- OUTSIDE RECORDS SUMMARY | 2025-08-20 16:07 | XMS_ITS | Encounter Summary ---
Author Organization [employer] Address [address] [facility] [address] 7t [place] [address] Care Team Providers Care Sample Maker Hand Name Role Phone Zac Hugo CNP Primary Care Provider [phone] Ariel Jose RN Unavailable Amada Walters Unavailable Reason for Visit * Reason Comments Care Coordination CM/CHW outreach Encounter Details Date Type Department Care Team (Latest Contact Info) Description 08/20/2025 Patient Outreach [facility] MEDICINE [address] [place] [address] Zac Hugo CNP [address] [place] [address] Care Coordination (CM/CHW outreach) Social History Tobacco Use Types Packs/Day Years [...] as of this encounter Progress Notes * Amada Walters - 08/20/2025 10:04 AM EST CHW Amada Walters, placed outbound call to patient introducing herself from [facility] CM Department, in regards to offering services. Patient's name and was confirmed. Patient agreesto participate in program. Appt. for initial assessment scheduled for 09/11/25 @ 10AM tele with LENNOX Jose RN. CHW reinforced direct contact information or CM for any additional questions or concerns and extended clinic hours on Mondays and Wednesdays, and Walk-In Urgent Care Located in [facility] of [facility]. Patient provided with after-hours line for [facility], ,which offer night time triage service and option to transfer to radio television technical director provider if needed. Patient verbalizes understanding, and able to repeat back to display card writer. documented in this encounter Plan of Treatment Upcoming Encounters Date Type Department Care Team (Late st Contact Info) Description 09/26/2025 11:30 AM EST Office Visit [facility] OPTOMETRY [facility] [place] [address] Cristina Collado, OD 230 [place] [address] 10/07/2025 10:30 AM EST Office Visit [facility] CHC MED & PEDS 505 [place] [address] Zac Hugo CNP [address] [place], [place] [phone] documented as of this encounter Goals Goal [...] documented as of this encounter Care Teams Sample Maker Hand Relationship Specialty Start Date End Date Zac Hugo CNP PCP - General Family Medicine 03/28/25 Ariel Jose, ZULEYKA [address] [place] [address] Registered Nurse Family Medicine 04/14/25 Amada Walters 04/14/25 Saloni Kaminski Work Environment Safety InspectorManager Retail Store 05/19/23 Rosemarie Palmer [address] [place] [address] Nurse Practitioner Neurology 09/18/23 Milad Mcfarland Work Environment Safety InspectorManager Retail Store 10/01/24 documented as of this encounter
--- OUTSIDE RECORDS SUMMARY | 2025-08-20 16:07 | XMS_ITS | Encounter Summary ---
Author Organization [employer] Address 75 [facility] 7t [place] [address] Care Team Providers Care Rag Sorter And Cutter Name Role Phone Gabbie Cisneros MD Primary Care Provider [phone] Zac Hugo CNP Primary Care Provider [phone] Ariel Jose RN Unavailable [phone] Amada Walters Unavailable Reason for Visit * Reason Comments Med Refill Encounter Details Date Type Department Care Team (Late st Contact Info) Description 04/11/2024 Refill [facility] CHC MED & PEDS [address] [place], [place] [phone] Gabbie Cisneros MD [address] [place], [place] [phone] Social History Tobacco Use Types Packs/Day Years [...] Description 09/26/2025 11:30 AM EST Office Visit [facility] OPTOMETRY [address] [place] [address] Tobias, Cristina, OD [address] [place] [address] 10/07/2025 10:30 AM EST Office Visit [facility] CHC MED & PEDS [address] [place] [address] Zac Hugo, NURSE CLINICIAN [address] [place] [address] documented as of this encounter Goals Goal [...] documented as of this encounter Care Teams Rag Sorter And Cutter Relationship Specialty Start Date End Date Gabbie Cisneros MD [address] [place] [address] PCP - General Family Medicine 05/02/18 03/27/25 Zac Hugo CNP [address] [place] [address] PCP - General Family Medicine 03/28/25 Ariel Jose, ZULEYKA [address] [place] [address] Registered Nurse Family Medicine 04/14/25 Amada Walters 04/14/25 Saloni Kaminski College Athletic DirectorPlant Maintenance Worker 05/19/23 Rosemarie Palmer [address] [place] [address] Nurse Practitioner Neurology 09/18/23 Milad Mcfarland College Athletic DirectorPlant Maintenance Worker 10/01/24 documented as of this encounter
--- OUTSIDE RECORDS SUMMARY | 2025-08-20 16:07 | XMS_ITS | Encounter Summary ---
Author Organization [facility] Address [address] [place] [address] Care Team Providers Care Dobie Man Name Role Phone Gabbie Cisneros Primary Care Provider Reason for Visit * Reason Comments PAC Clinical Questions Encounter Details Date Type Department Care Team (Late st Contact Info) Description 08/15/2025 Telephone [facility] Endocrinology Clinic [address] [place] [address] Director Of Assessment: Pao Valdez Telephone Intake, Staff PAC Clinical Questions Social History Tobacco Use Types Packs/Day Years Used Date Smoking Tobacco: Former Cigarettes 0 Q uit: 2010 Smokeless Tobacco: Never Alcohol [...] encounter Miscellaneous Notes * Telephone Encounter - Nina Fabrizio - 08/15/2025 4:37 PM EST Booked w pt Future Appointments Date Time Provider Department Center 08/27/2025 11:00 AM ACC ECHO SCHEDULE ACC CardUS ACC H&V 10/21/2025 11:00 AM Estefani Maher MD [facility] [place] * Telephone Encounter - Judit Bryce - 08/15/2025 4:05 PM EST Copied from [facility] #[id number]. Topic: Clinical - Messages for Clinical Team >> Aug 15, 2025 4:04 PM Judit Jara wrote: Pt calling in regards to rescheduling appt - unable to schedule due to cancellations documented in this encounter Plan of Treatment Upcoming Encounters Date Type Department Care Team (Late st Contact Info) Description 08/27/2025 11:00 AM EST Appointment [facility] Cardiac Ultrasound [address] [place] [address] 10/21/2025 11:00 AM EST Follow-Up [facility] Endocrinology Clinic [address] [place] [address] Director Of Assessment: Estefani Carrera MD [address] [place] [address] documented as of this encounter Visit Diagnoses Not on filedocumented in this encounter Care Teams Dobie Man Relationship Specialty Start Date End Date Gabbie Cisneros [address] [place] [address] PCP - General Family Medicine 06/15/22 documented as of this encounter
--- OUTSIDE RECORDS SUMMARY | 2025-08-20 16:07 | XMS_ITS | Encounter Summary ---
Author Organization [employer] Address 75 [facility] 7t [place] [address] Care Team Providers Care Secretary Book Keeper Name Role Phone Gabbie Cisneros MD Primary Care Provider [phone] Zac Hugo CNP Primary Care Provider [phone] Ariel Jose RN Unavailable [phone] Amada Walters Unavailable Encounter Details Date Type Department Care Team (Late st Contact Info) Description 12/18/2023 Orders Only [facility] [address] [place] [address] Provider, MD Marina Social History Tobacco Use [...] Description 09/26/2025 11:30 AM EST Office Visit [facility] OPTOMETRY [address] [place] [address] TobiasBertramn, OD [address] [place] [address] 10/07/2025 10:30 AM EST Office Visit [facility] CHC MED & PEDS [address] [place], [place] [phone] Zac Hugo, STATISTICAL PROGRAMMER ANALYST [address] [place], [place] [phone] documented as of this encounter Goals Goal [...] documented as of this encounter Care Teams Secretary Book Keeper Relationship Specialty Start Date End Date Gabbie Cisneros MD [address] [place] [address] PCP - General Family Medicine 05/02/18 03/27/25 Zac Hugo CNP [address] [place] [address] PCP - General Family Medicine 03/28/25 Ariel Jose RN [address] [place] [address] Registered Nurse Family Medicine 04/14/25 Amada Walters 04/14/25 Saloni Kaminski Central Aisle CashierDress Draper 05/19/23 Rosemarie Palmer [address] [place] [address] Nurse Practitioner Neurology 09/18/23 Milad Mcfarland Central Aisle CashierDress Draper 10/01/24 documented as of this encounter
--- OUTSIDE RECORDS SUMMARY | 2025-08-20 16:07 | XMS_ITS | Encounter Summary ---
Author Organization [employer] Address [address] [facility] 7t [place] [address] Care Team Providers Care Marketing Production Specialist Name Role Phone Gabbie Cisneros MD Primary Care Provider [phone] Zac Hugo CNP Primary Care Provider [phone] Ariel Jose RN Unavailable [phone] Amada Walters Unavailable Encounter Details Date Type Department Care Team (Late Contact Info) Description 09/29/2022 Abstract [facility] MEDICINE [address] [place] [address] Gabbie Cisneros MD [address] [place], [place] [phone] Social History Tobacco Use Types Packs/Day Years [...] Description 09/26/2025 11:30 AM EST Office Visit [facility] OPTOMETRY [address] [place] [address] Cristina Collado, OD 230 [place], [place] [phone] 10/07/2025 10:30 AM EST Office Visit [facility] CHC MED & PEDS 505 [place] [address] Zac Hugo CNP 505 [place] [address] documented as of this encounter Visit Diagnoses Not on filedocumented in this encounter Additional Health Concerns Assessment Noted Time PHQ-9 Depression Total Score: 15 023 9:30 AM EST documented as of this encounter Care Teams Marketing Production Specialist Relationship Specialty Start Date End Date Gabbie Cisneros MD [address] [place] [address] PCP - General Family Medicine 05/02/18 03/27/25 Zac Hugo CNP [address] [place] [address] PCP - General Family Medicine 03/28/25 Ariel Jose, ZULEYKA [address] [place] [address] Registered Nurse Family Medicine 04/14/25 Amada Walters 04/14/25 Saloni Kaminski Franchise SpecialistManager Of School 05/19/23 Rosemarie Palmer [address] [place] [address] Nurse Practitioner Neurology 09/18/23 Milad Mcfarland Franchise SpecialistManager Of School 10/01/24 documented as of this encounter
--- OUTSIDE RECORDS SUMMARY | 2025-08-20 16:07 | XMS_ITS | Encounter Summary ---
Author Organization [facility] Address [address] [facility] [address] [place] [address] Phone Care Team Providers Care Regulatory Technician Name Role Phone Gabbie Cisneros MD Primary Care Provider [phone] Encounter Details Date Type Department Care Team (Late st Contact Info) Description 11/13/2023 Procedure Pass MRI, [facility] Imaging - [place] [address] [facility], [address] [place] [phone] Social History Tobacco Use Types Packs/Day Years [...] Description 08/25/2025 11:00 AM EST Office Visit [facility] Physical Therapy Clinic [address] [place] [address] Sunitha Cisneros MD [address] [place] [phone] [email or web address] Joanne Milton, PT [address] [place] [address] 09/02/2025 11:30 AM EST Office Visit [facility] [address] [place] [address] Sunitha Cisneros MD [address] [place] [phone] [email or web address] Joanne Milton, PT 8 [place] [address] 09/11/2025 9:00 AM EST Telemedicine [facility]rology [facility] [address] [place] [address], 8th Floor, [address] [place] [address] Jean Davila MD, PhD [address] [place] [phone] [email or web address] 10/27/2025 3:30 PM EDT Telemedicine [facility] [address] [place] [address], 8th Floor, [address] [place] [address] Sunitha Cisneros MD [address] [place] [phone] [email or web address] documented as of this encounter Visit Diagnoses Not on filedocumented in this encounter Care Teams Regulatory Technician Relationship Specialty Start Date End Date Gabbie Cisneros MD [address] [place] [address] PCP - General Family Medicine 04/14/23 documented as of this encounter Additional Source Comments The information contained in this document represents components of the legal health record. It is not the complete legal health record.[facility]
--- OUTSIDE RECORDS SUMMARY | 2025-08-20 16:07 | XMS_ITS | Encounter Summary ---
Author Organization [employer] Address [address] [facility] 7t [place] [address] Care Team Providers Care Monorail Car Operator Name Role Phone Gabbie Cisneros MD Primary Care Provider [phone] Zac Hugo CNP Primary Care Provider [phone] Ariel Jose RN Unavailable [phone] Amada Walters Unavailable Reason for Visit * Reason Comments Med Refill Encounter Details Date Type Department Care Team (Late st Contact Info) Description 06/30/2023 Refill [facility] ED MED & PEDS [address] [place] [address] Andrew Lozano FNP Severe recurrent major depression [...] 09/26/2025 11:30 AM EST Office Visit [facility] OPTOMETRY [address] [place] [address] Tobias, Cristina, OD [address] [place] [address] 10/07/2025 10:30 AM EST Office Visit [facility] CHC MED & PEDS [address] [place] [address] Zac Hugo, SPICE MILLER 505 [place] [address] documented as of this encounter Goals Goal [...] Noted Time PHQ-9 Depression Total Score: 9 10/10/20 23 9:42 AM EDT documented as of this encounter Care Teams Monorail Car Operator Relationship Specialty Start Date End Date Gabbie Cisneros MD 230 [place] [address] PCP - General Family Medicine 05/02/18 03/27/25 Zac Hugo CNP [address] [place] [address] PCP - General Family Medicine 03/28/25 Ariel Jose RN 505 [place] [address] Registered Nurse Family Medicine 04/14/25 Amada Walters 04/14/25 Saloni Kaminski Pest Control Chemical TechnicianWood Heel Cementer 05/19/23 Rosemarie Palmer [address] [place] [address] Nurse Practitioner Neurology 09/18/23 Milad Mcfarland Pest Control Chemical TechnicianWood Heel Cementer 10/01/24 documented as of this encounter
--- OUTSIDE RECORDS SUMMARY | 2025-08-20 16:07 | XMS_ITS | Encounter Summary ---
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) documented in this encounter Additional Health Concerns Assessment Noted Time PHQ-9 Depression Total Score: 10 024 9:42 AM EDT documented as of this encounter Care Teams Hand Stone Polisher Relationship Specialty Start Date End Date Zac Hugo CNP PCP - General Family Medicine 03/28/25 Ariel Jose, ZULEYKA [address] [place] [address] Registered Nurse Family Medicine 04/14/25 Amada Walters 04/14/25 Saloni Kaminski Film MakerMold Yarn Supervisor 05/19/23 Rosemarie Palmer [address] [place] [address] Nurse Practitioner Neurology 09/18/23 Milad Mcfarland Film MakerMold Yarn Supervisor 10/01/24 documented as of this encounter
--- OUTSIDE RECORDS SUMMARY | 2025-08-20 16:07 | XMS_ITS | Encounter Summary ---
Author Organization [employer] Address [address] [facility] 7t [place] [address] Care Team Providers Care Network Control Supervisor Name Role Phone Zac Hugo CNP Primary Care Provider [phone] Ariel Jose RN Unavailable [phone] Amada Walters Unavailable Reason for Visit * Reason Onset Date Comments chart prep 08/18/2025 Encounter Details Date Type Department Care Team ([facility] st Contact Info) Description 08/18/2025 Telephone [facility] MED & PEDS [address] [place], [place] [phone] Zac Hugo CNP 505 [place], [place] [phone] chart prep Social History Tobacco Use Types Packs/Day Years [...] encounter Miscellaneous Notes * Telephone Encounter - Norma Willams [place] - 08/18/2025 1:32 PM EST Chart Prep Labs: not applicable Images: not applicable Referrals: complete Vaccines due: Covid, Flu, PCV20, and RSV Screenings: colonoscopy, mammogram, eye exam, foot exam, STI screening, and LMP Overdue care gaps: A1c, Glucose, SBIRT, PHQ-9, [place]-7, and Disability screen documented in this encounter Plan of Treatment Upcoming Encounters Date Type Department Care Team (Late st Contact Info) Description 09/26/2025 11:30 AM EST Office Visit [facility] OPTOMETRY [address] [place] [address] Cristina Collado, OD [address] [place] [address] 10/07/2025 10:30 AM EST Office Visit [facility] CHC MED & PEDS [address] [place] [address] Zac Hugo, MISHA [address] [place] [address] documented as of this encounter Goals Goal [...] documented as of this encounter Care Teams Network Control Supervisor Relationship Specialty Start Date End Date Zac Hugo CNP PCP - General Family Medicine 03/28/25 Ariel Jose, ZULEYKA [address] [place] [address] Registered Nurse Family Medicine 04/14/25 Amada Walters 04/14/25 [facility] E[facility] SpecialistHeel Seat Laster 05/19/23 Rosemarie [place] [address] [place] [address] Nurse Practitioner Neurology 09/18/23 Milad Mcfarland Ecmo SpecialistHeel Seat Laster 10/01/24 documented as of this encounter
--- OUTSIDE RECORDS SUMMARY | 2025-08-20 16:07 | XMS_ITS | Encounter Summary ---
Author Organization [employer] Address [address] [facility] [address] [place] [address] Care Team Providers Care Hot Stamp Operator Name Role Phone Zac Hugo CNP Primary Care Provider [phone] Ariel Jose RN Unavailable Amada Walters Unavailable Encounter Details Date Type Department Care Team (Latest Contact Info) Description 08/20/2025 Travel Social History Tobacco Use Types Packs/Day [...] t he electric, gas, oil or water [employer] threatened to shut off services in your [...] Office Visit [facility] OPTOMETRY [address] [place] [address] Tobias, Cristina, OD [address] [place] [address] 10/07/2025 10:30 AM EST Office Visit [facility] CHC MED & PEDS 505 [place] [address] Zac Hugo CNP 505 [place] [address] documented as of this encounter Goals Goal [...] documented as of this encounter Care Teams Hot Stamp Operator Relationship Specialty Start Date End Date Zac Hugo CNP PCP - General Family Medicine 03/28/25 Ariel Jose RN 505 [place] [address] Registered Nurse Family Medicine 04/14/25 Amada Walters 04/14/25 Saloni Kaminski Furnace InstallerPlastic Outfitter 05/19/23 Rosemarie [place] [address] [place] [address] Nurse Practitioner Neurology 09/18/23 Milad Mcfarland Furnace InstallerPlastic Outfitter 10/01/24 documented as of this encounter
--- OUTSIDE RECORDS SUMMARY | 2025-08-20 16:07 | XMS_ITS | Encounter Summary ---
Author Organization [employer] Address [address] [facility] 7t [place] [address] Care Team Providers Care Field Handyman Name Role Phone Gabbie Cisneros MD Primary Care Provider [phone] Zac Hugo CNP Primary Care Provider [phone] Ariel Jose RN Unavailable [phone] Amada Walters Unavailable Reason for Visit * Reason Comments Med Refill Encounter Details Date Type Department Care Team (Late Contact Info) Description 11/11/2022 Refill [facility] CHC MED & PEDS [address] [place], [place] [phone] Gabbie Cisneros MD 505 [place], [place] [phone] Chronic obstructive pulmonary disease, unspecified COPD type [...] Description 09/26/2025 11:30 AM EST Office Visit [facility] OPTOMETRY [address] [place], [place] [phone] Cristina Collado, OD 230 [place] [address] 10/07/2025 10:30 AM EST Office Visit [facility] CHC MED & PEDS [address] [place] [address] Zac Hugo CNP 505 [place] [address] documented as of this encounter Visit Diagnoses Diagnosis Chronic obstructive pulmonary disease, unspecified COPD type (CMS/HCC) (HCC) documented in this encounter Additional Health Concerns Assessment Noted Time PHQ-9 Depression Total Score: 12 023 8:49 AM EST documented as of this encounter Care Teams Field Handyman Relationship Specialty Start Date End Date Gabbie Cisneros MD [address] [place] [address] PCP - General Family Medicine 05/02/18 03/27/25 Zac Hugo CNP [address] [place] [address] PCP - General Family Medicine 03/28/25 Ariel Jose RN [address] [place] [address] Registered Nurse Family Medicine 04/14/25 Amada Walters 04/14/25 Saloni Kaminski Mountain Services ManagerTextile Coating Machine Operator 05/19/23 Rosemarie [place] [address] [place] [address] Nurse Practitioner Neurology 09/18/23 Milad Mcfarland Mountain Services ManagerTextile Coating Machine Operator 10/01/24 documented as of this encounter
--- OUTSIDE RECORDS SUMMARY | 2025-08-20 16:07 | XMS_ITS | Encounter Summary ---
Author Organization [employer] Address [address] [facility] 7t [place] [address] Care Team Providers Care Clinic Nurse Name Role Phone Gabbie Cisneros MD Primary Care Provider [phone] Zac Hugo CNP Primary Care Provider [phone] Ariel Jose RN Unavailable [phone] Amada Walters Unavailable Reason for Visit * Reason Comments Med Refill Encounter Details Date Type Department Care Team (Late st Contact Info) Description 04/08/2024 Refill [facility] CHC MED & PEDS 505 [place], [place] [phone] Gabbie Cisneros MD 505 [place], [place] [phone] Social History Tobacco Use Types Packs/Day Years [...] Description 09/26/2025 11:30 AM EST Office Visit [facility] OPTOMETRY [address] [place] [address] Tobias, Cristina, OD [address] [place] [address] 10/07/2025 10:30 AM EST Office Visit [facility] CHC MED & PEDS 505 [place] [address] Zac Hugo, DENTAL LABORATORY MANAGER 505 [place] [address] documented as of this encounter Goals Goal [...] documented as of this encounter Care Teams Clinic Nurse Relationship Specialty Start Date End Date Gabbie Cisneros MD 230 [place] [address] PCP - General Family Medicine 05/02/18 03/27/25 Zac Hugo CNP [address] [place] [address] PCP - General Family Medicine 03/28/25 Ariel Jose, ZULEYKA [address] [place] [address] Registered Nurse Family Medicine 04/14/25 Amada Walters 04/14/25 Saloni Kaminski Pier RunnerWaste Water Plant Operator 05/19/23 Rosemarie [place] [address] [place] [address] Nurse Practitioner Neurology 09/18/23 Milad Mcfarland Pier RunnerWaste Water Plant Operator 10/01/24 documented as of this encounter
--- OUTSIDE RECORDS SUMMARY | 2025-08-20 16:07 | XMS_ITS | Encounter Summary ---
Author Organization [employer] Address [address] [facility] 7t [place] [address] Care Team Providers Care Kiln Maintenance Name Role Phone Zac Hugo CNP Primary Care Provider [phone] Ariel Jose RN Unavailable Amada Walters Unavailable Reason for Visit * Reason Comments Med Refill Encounter Details Date Type Department Care Team ([facility] st Contact Info) Description 08/20/2025 Refill [facility] CHC MED & PEDS 505 [place], [place] [phone] Gabbie Cisneros MD 505 [place] [address] Vertigo Social History Tobacco Use Types Packs/Day Years [...] Description 09/26/2025 11:30 AM EST Office Visit [facility] OPTOMETRY [address] [place] [address] Tobias, Cristina, OD [address] [place] [address] 10/07/2025 10:30 AM EST Office Visit [facility] CHC MED & PEDS 505 [place] [address] Zac Hugo, POULTRY BARN MANAGER 505 [place] [address] documented as of this encounter Goals Goal Patient Goal Type Associated Problems Recent Progress Patient-Stated? Author Patient will adhere to medication regimen General No Jerry Shelby, PharmD Help patient manage asthma General No Jerry Shelby, PharmD Note: Reduce use of LUANNE to 2x/week documented as of this encounter Visit Diagnoses Diagnosis Vertigo Dizziness and giddiness documented in this encounter Additional Health Concerns Assessment Noted Time PHQ-9 Depression Total Score: 024 9:42 AM EDT documented as of this encounter Care Teams Kiln Maintenance Relationship Specialty Start Date End Date Hugo Zac MISHA PCP - General Family Medicine 03/28/25 Ariel Jose, ZULEYKA [address] [place] [address] Registered Nurse Family Medicine 04/14/25 Amada Walters 04/14/25 Saloni Kaminski Test AnalystOccupational Health Specialist 05/19/23 Rosemarie [place] [address] [place] [address] Nurse Practitioner Neurology 09/18/23 Milad Mcfarland Test AnalystOccupational Health Specialist 10/01/24 documented as of this encounter
--- OUTSIDE RECORDS SUMMARY | 2025-08-20 16:07 | XMS_ITS | Encounter Summary ---
Author Organization [employer] Address [address] [facility] 7t [place] [address] Care Team Providers Care Stave Hewer Name Role Phone Gabbie Cisneros MD Primary Care Provider Zac Hugo CNP Primary Care Provider [phone] Ariel Jose RN Unavailable [phone] Amada Walters Unavailable Reason for Visit * Reason Onset Date Comments Referral 04/09/2024 Encounter Details Date Type Department Care Team ([facility] st Contact Info) Description 04/09/2024 Telephone [facility] CHC MED & PEDS 505 [place], [place] [phone] Gabbie Cisneros MD 505 [place], [place] [phone] Referral Social History Tobacco Use Types Packs/Day [...] Description 09/26/2025 11:30 AM EST Office Visit [facility] OPTOMETRY [address] [place] [address] Cristina [place]ado, OD [address] [facility] [place] [address] 10/07/2025 10:30 AM EST Office Visit [facility] CHC MED & PEDS 505 [place] [address] Zac Hugo CNP 505 [place] [address] documented as of this encounter Goals Goal [...] documented as of this encounter Care Teams Stave Hewer Relationship Specialty Start Date End Date Gabbie Cisneros MD 230 [place] [address] PCP - General Family Medicine 05/02/18 03/27/25 Zac Hugo CNP 230 [place] [address] PCP - General Family Medicine 03/28/25 Ariel Jose RN [address] [place] [address] Registered Nurse Family Medicine 04/14/25 Amada Walters 04/14/25 Saloni Kaminski Swage ToolsetterMachining And Assembly Supervisor 05/19/23 Rosemarie [place] [address] [place] [address] Nurse Practitioner Neurology 09/18/23 Milad Mcfarland Swage ToolsetterMachining And Assembly Supervisor 10/01/24 documented as of this encounter
--- OUTSIDE RECORDS SUMMARY | 2025-08-20 16:07 | XMS_ITS | Encounter Summary ---
Author Organization [employer] Address [address] [facility] 7t [place] [address] Care Team Providers Care Colorman Name Role Phone Gabbie Cisneros MD Primary Care Provider [phone] Zac Hugo CNP Primary Care Provider [phone] Ariel Jose RN Unavailable [phone] Amada Walters Unavailable Reason for Visit * Reason Onset Date Comments Nurse Triage 06/24/2024 Encounter Details Date Type Department Care Team (Late st Contact Info) Description 06/24/2024 Telephone [facility] CHC MED & PEDS [address] [place], [place] [phone] Gabbie Cisneros MD 505 [place], [place] [phone] Nurse Triage Social History Tobacco Use Types [...] Description 09/26/2025 11:30 AM EST Office Visit [facility] OPTOMETRY [address] [place] [address] Cristina Collado, OD [address] [place] [address] 10/07/2025 10:30 AM EST Office Visit [facility] CHC MED & PEDS [address] [place] [address] Zac Hugo CNP 505 [place] [address] documented as of this encounter Goals Goal [...] documented as of this encounter Care Teams Colorman Relationship Specialty Start Date End Date Gabbie Cisneros MD 230 [place] [address] PCP - General Family Medicine 05/02/18 03/27/25 Zac Hugo CNP [address] [place] [address] PCP - General Family Medicine 03/28/25 Ariel Jose RN [address] [place] [address] Registered Nurse Family Medicine 04/14/25 Amada Walters 04/14/25 Saloni Kaminski Tow Boat CaptainHand Woven Carpet And Rug Mender 05/19/23 Rosemarie [place] [address] [place] [address] Nurse Practitioner Neurology 09/18/23 Milad Mcfarland Tow Boat CaptainHand Woven Carpet And Rug Mender 10/01/24 documented as of this encounter
--- OUTSIDE RECORDS SUMMARY | 2025-08-20 16:07 | XMS_ITS | Encounter Summary ---
Author Organization [employer] Address [address] [facility] 7t [place] [address] Care Team Providers Care Integrity Assessor Name Role Phone Gabbie Cisneros MD Primary Care Provider [phone] Zac Hugo CNP Primary Care Provider [phone] Ariel Jose RN Unavailable [phone] Amada Walters Unavailable Reason for Visit * Reason Onset Date Comments Appointment Request 06/24/2024 Encounter Details Date Type Department Care Team ([facility] st Contact Info) Description 06/24/2024 Telephone [facility] CHC MED & PEDS [address] [place], [place] [phone] Gabbie Cisneros MD 505 [place], [place] [phone] Appointment Request Social History Tobacco Use Types [...] Description 09/26/2025 11:30 AM EST Office Visit [facility] OPTOMETRY [address] [place] [address] Cristina Collado, OD [address] [place] [address] 10/07/2025 10:30 AM EST Office Visit [facility] CHC MED & PEDS [address] [place] [address] Zac Hugo CNP 505 [place] [address] documented as of this encounter Goals Goal [...] documented as of this encounter Care Teams Integrity Assessor Relationship Specialty Start Date End Date Gabbie Cisneros MD 230 [place] [address] PCP - General Family Medicine 05/02/18 03/27/25 Zac Hugo CNP [address] [place] [address] PCP - General Family Medicine 03/28/25 Ariel Jose RN [address] [place] [address] Registered Nurse Family Medicine 04/14/25 Amada Walters 04/14/25 Saloni Kaminski Claims Customer Service RepresentativePediatric Geneticist 05/19/23 Rosemarie [place] [address] [place] [address] Nurse Practitioner Neurology 09/18/23 Milad Mcfarland Claims Customer Service RepresentativePediatric Geneticist 10/01/24 documented as of this encounter
[2025-08-21 00:24] LABS: Bacterial Vaginosis PCR POSITIVE (Negative); Candida Group PCR NOT DETECTED (Not Detect); Candida glab krusei PCR NOT DETECTED (Not Detect); Trichomonas vaginalis PCR NOT DETECTED (Not Detect)
== END 2025-08-20 16:03 | disposition home or self-care (01) ==
LOC: HO.CHCLNP 16:02
DX: N89.8 Other specified noninflammatory disorders of vagina (principal); Z20.2 Contact with and (suspected) exposure to infections with a predominantly sexual mode of transmission
CPT/HCPCS: 81515